=== PATIENT | female | born 1940 | race Caucasian/White ===

== ENCOUNTER 2018-04-02 21:47 | Inpatient (IN) | payer OTHER ==
[2018-04-02] MEDS ORDERED: SODIUM CHLORIDE 0.9% 500 ML INFUS.BAG IV ONE (22:38)
--- NOTE | 2018-04-02 22:38 | PDOC ---
History of Present Illness - General History Source: Family Exam Limitations: No Limitations, Clinical Condition - History of Present Illness Initial Comments: 04/02/18 23:26 The patient is a year old female, with a significant past medical history of s/ p quadruple cardiac bypass, HLD, hypothyroidism, HTN, GERD, and anxiety, who presents to the emergency department with, 5 days of lethargy, diffuse weakness , decreased PO intake and acute onset (at approximately ~8pm) slurred speech/ lack of speech. As per patients son and daughter at bedside, over the past 5 days she has not been eating and been increasingly lethargic. Daughter notes calling Dr. Celestino Green who prescribed her a Z-pack (compliant), without relief. Daughter notes today when she visited her the patient was speaking to her and her speech began to become slurred then progressed her not speaking and just sleeping, prompting them to call for EMS. Allergies: NKDA Primary Care Physician: Dr. Gilma Green <Liat Garcia - Last Filed: 04/02/18 23:26> <Nellie Ndiaye - Last Filed: 04/03/18 19:57> - General Chief Complaint: Altered Mental Status Stated Complaint: Altered Mental Status Time Seen by Provider: 04/02/18 22:12 Past History <Liat Garcia - Last Filed: 04/02/18 23:26> - Past Medical History GI Disorders: Yes (GERD) HTN: Yes Hypercholesterolemia: Yes Psychiatric Problems: Yes (ANXIETY) Thyroid Disease: Yes (HYPO) - Suicide/Smoking/Psychosocial Hx Smoking History: Never smoked Have you smoked in the past 12 months: No Number of Cigarettes Smoked Daily: 10 Information on smoking cessation initiated: No Hx Alcohol Use: No Drug/Substance Use Hx: No Hx Substance Use Treatment: No <Nellie Ndiaye - Last Filed: 04/03/18 19:57> - Past Medical History Allergies/Adverse Reactions: Allergies Allergy/AdvReac Type Severity Reaction Status Date / Time No Known Allergies Allergy Verified 04/02/18 21:59 Home Medications: Ambulatory Orders Atorvastatin Ca [Lipitor] 20 mg PO HS 04/02/18 Diazepam [Valium] 5 mg PO DAILY 04/02/18 Esomeprazole Magnesium 40 mg PO DAILY 04/02/18 Fenofibrate Nanocrystallized [Fenofibrate] 145 mg PO DAILY 04/02/18 Ipratropium [place] [Atrovent Hfa] 17 mcg IH 04/02/18 Levothyroxine [Synthroid -] 25 mcg PO DAILY 04/02/18 Meloxicam 7.5 mg PO 04/02/18 Metoprolol Succinate [Toprol Xl] 25 mg PO DAILY 04/02/18 Olmesartan/Hydrochlorothiazide [Olmesartan-Hctz 20-12.5 mg Tab] 1 each PO Prochlorperazine Maleate [Compazine -] 5 mg PO 04/02/18 Sertraline HCl [Zoloft -] 50 mg PO DAILY 04/02/18 Zolpidem Tartrate [Ambien] 10 mg PO HS 04/02/18 Review of Systems - Review of Systems Able to Perform ROS?: No Comments:: 04/02/18 23:26 Unable to perform a ROS due to patient's clinical condition. All Other Systems: Reviewed and Negative <Liat Garcia - Last Filed: 04/02/18 23:26> *Physical Exam - Vital Signs Last Vital Signs Temp Pulse Resp BP Pulse Ox 89 18 128/86 97 04/02/18 21:59 04/02/18 21:59 04/02/18 21:59 04/02/18 21:59 <Liat Garcia - Last Filed: 04/02/18 23:26> - Vital Signs Last Vital Signs Temp Pulse Resp BP Pulse Ox 89 18 128/86 97 04/02/18 21:59 04/02/18 21:59 04/02/18 21:59 04/02/18 21:59 <Nellie Ndiaye - Last Filed: 04/03/18 19:57> Moderate Sedation - Procedure Monitoring Vital Signs: Procedure Monitoring Vital Signs Temperature Pulse Rate 89 04/02/18 21:59 Respiratory Rate 18 04/02/18 21:59 Blood Pressure 128/86 04/02/18 21:59 O2 Sat by Pulse Oximetry (%) 97 04/02/18 21:59 <Liat Garcia - Last Filed: 04/02/18 23:26> - Procedure Monitoring Vital Signs: Procedure Monitoring Vital Signs Temperature Pulse Rate 89 04/02/18 21:59 Respiratory Rate 18 04/02/18 21:59 Blood Pressure 128/86 04/02/18 21:59 O2 Sat by Pulse Oximetry (%) 97 04/02/18 21:59 <Nellie Ndiaye - Last Filed: 04/03/18 19:57> ED Treatment Course - LABORATORY CBC & Chemistry Diagram: 04/02/18 10:40 04/02/18 10:40 - ADDITIONAL ORDERS Additional order review: Laboratory Results 04/02/18 04/02/18 10:40 10:40 PT with INR 17.90 H INR 1.51 H Lipase Cancelled 04/02/18 10:40 RBC 2.61 L MCV 87.1 MCHC 32.4 RDW 16.2 H MPV 7.6 D Neutrophils % 92.7 H D Lymphocytes % 2.6 L D Monocytes % 4.2 Eosinophils % 0.1 Basophils % 0.4 - Medications Given in the ED: ED Medications Discontinued Medications Generic Name Dose Route Start Last Admin Trade Name Freq PRN Reason Stop Dose Admin Sodium Chloride 1,000 ml 04/02/18 22:38 04/02/18 22:49 Normal Saline - IV 04/02/18 22:39 1,000 ml ONCE ONE Administration <Liat Garcia - Last Filed: 04/02/18 23:26> - LABORATORY CBC & Chemistry Diagram: 04/03/18 16:05 04/03/18 16:05 - RADIOLOGY Radiology Studies Ordered: Category Date Time Status HEAD CT WITHOUT CONTRAST [CT] Stat CT Scan 04/02/18 22:10 Ordered CHEST X-RAY PORTABLE* [RAD] Stat Radiology 04/02/18 22:12 Ordered <Nellie Ndiaye - Last Filed: 04/03/18 19:57> Medical Decision Making - Medical Decision Making 04/02/18 23:19 Pt has a UTI; also she is anemic; HB is 7.4; normal is 11 for her. Pt also has distended abd. WBC is 17 with a 92% left shift. Once chem is back we can order a CT abd.pelvis, as pt has distended abd. Need to know if it is safe to use IV contrast. 04/03/18 00:36 Chem is still pending 04/03/18 01:2 Chem is hemolyzed; however we sent 2 tubes of Chem 04/03/18 01:42 CXR shows cardiomegaly; she had open heart surg; wires in place 04/03/18 02:41 Pt has kidney failure; we are repeating her CMP; pt will prob be admitted to the ICU. 04/03/18 02:44 Patient Name: ZOIE GUTIERREZ THIS IS A PRELIMINARY REPORT FROM [facility] DATE OF SERVICE: 2018-04-03 02:17:51 IMAGES: [id number] EXAM: HEAD CT WITHOUT CONTRAST HISTORY: Altered mental status COMPARISON: None. FINDINGS: Brain parenchyma is normal in attenuation with no mass or hematoma. There is no midline shift. Elliott and white matter differentiation is normal. Ventricles are normal. Sulci and extra-axial CSF spaces are normal. Intracranial vascular structures are normal in attenuation. There is no calvarial fracture. Paranasal sinuses are normally aerated. IMPRESSION: Normal head 04/03/18 04:56 Patient Name: ZOIE GUTIERREZ THIS IS A PRELIMINARY REPORT FROM [facility] DATE OF SERVICE: 2018-04-03 04:06:37 IMAGES: [id number] EXAM: CT ABDOMEN \T\ PELVIS CT W/O CONTR HISTORY: Concern for colitis or obstruction COMPARISON: None. FINDINGS: Abdomen Liver: Normal Spleen: Normal Pancreas: Normal Gallbladder: There is cholelithiasis Stomach: Normal Small bowel: Normal Large bowel: There is a segment of thickened inflamed appearing sigmoid colon with some colonic wall pneumatosis. There is extraluminal gas in the adjacent fat Appendix: Normal Adrenals:Normal Kidneys: Normal Vascular: Normal Lymphatic: Normal Peritoneal: There is a complex loculated air and fluid collection in the cul-de- sac measuring 10.7 x 11.1 x 7.9 cm. This appears to communicate directly to the area of thickened sigmoid colon with pneumatosis and extraluminal gas. There is a second loculated mesenteric fluid collection measuring 3.9 x 5.6 x 4.1 cm Pelvis: Uterus: normal Rectum: Normal Bladder: There is a Clinton catheter in the bladder The inferior thorax: Normal General: Skeletal: Normal Abdominal wall: Normal IMPRESSION: Complex air-fluid collection in the cul-de-sac with a second loculated fluid collection in the small bowel mesenteric fat appears to reflect abscess formations likely related to a focal perforation in the sigmoid colon Cholelithiasis THIS DOCUMENT HAS BEEN ELECTRONICALLY SIGNED 04/03/18 19:55 Dr. Siva Bustamante for surg; Kandi for GI; Conor for kidneys.... I placed the request in the computer. Accepted by the ICU. <Nellie Ndiaye - Last Filed: 04/03/18 19:57> *DC/Admit/Observation/Transfer - Attestations Scribe Attestion: 04/02/18 23:27 Documentation prepared by Liat Garcia, acting as center medical director for Nellie Ndiaye MD. <Liat Garcia - Last Filed: 04/02/18 23:26> - Discharge Dispostion Decision to Admit order: Yes <Nellie Ndiaye - Last Filed: 04/03/18 19:57> Diagnosis at time of Disposition: UTI (urinary tract infection), Anemia, Altered mental state, Dehydration, Abdominal distension, Acute kidney failure - Discharge Dispostion Condition at time of disposition: Critical
[2018-04-02 22:51] LABS: BASO % 0.4 % (0-2.0); EOS % 0.1 % (0-4.5); HEMATOCRIT 22.7 % (32.4-45.2); HEMOGLOBIN 7.4 GM/dL (10.7-15.3); LYMPH % 2.6 % (8-40); MCH 28.2 pg (25.7-33.7); MCHC 32.4 g/dl (32.0-36.0); MEAN CELL VOLUME 87.1 fl (80-96); MEAN PLT VOLUME 7.6 fl (7.5-11.1); MONO % 4.2 % (3.8-10.2); NEUT % 92.7 % (42.8-82.8); PLATELET COUNT 540 K/MM3 (134-434); RBC 2.61 M/mm3 (3.60-5.2); RDW 16.2 % (11.6-15.6); WHITE BLOOD COUNT 17.5 K/mm3 (4.0-10.0)
[2018-04-02 23:05] LABS: INR 1.51 (0.83-1.09); PROTHROMBIN TIME (PATIENT) 17.9 SEC (9.7-13.0)
[2018-04-02] MEDS ORDERED: CEFTRIAXONE 1 GM in DEXTROSE 5%-WATER - 50 ML IVPB ONE (23:17)
[2018-04-02] MEDS ORDERED: CEFTRIAXONE 1 GM/50 ML BAG ONE (23:20)
[2018-04-02 23:39] LABS: PLATELET ESTIMATE INCREASED
[2018-04-02 23:42] LABS: URINE APPEARANCE SLCLOUDY; URINE BILIRUBIN NEGATIVE (<2.0 mg/dL); URINE COLOR DKYELLOW; URINE GLUCOSE (UA) NEGATIVE (NEGATIVE); URINE KETONE NEGATIVE (NEGATIVE); URINE LEUK ESTERASE NEGATIVE (NEGATIVE); URINE NITRITE NEGATIVE (NEGATIVE); URINE PROTEIN 1+ (NEGATIVE)
[2018-04-03] MEDS ORDERED: SODIUM CHLORIDE 0.9% 500 ML INFUS.BAG IV ONE (01:08)
[2018-04-03 01:37] LABS: CHLORIDE 112 mmol/L (98-107); GLUCOSE,RANDOM 105 mg/dL (74-106); SODIUM 139 mmol/L (136-145)
[2018-04-03 01:38] LABS: ALBUMIN 1.9 g/dl (3.4-5.0); ANION GAP 20 MMOL/L (8-16); BILIRUBIN,TOTAL 0.8 mg/dL (0.2-1); CO2 7 mmol/L (21-32); LIPASE 87 U/L (73-393); SGOT/AST 72 U/L (15-37); TOT PROT 7.4 g/dl (6.4-8.2)
[2018-04-03 01:39] LABS: ALK PHOS 87 U/L (45-117); BLOOD UREA NITROGEN 167 mg/dL (7-18); SGPT/ALT 49 U/L (13-61)
[2018-04-03 01:40] LABS: CALCIUM 6.1 mg/dL (8.5-10.1); POTASSIUM 5.7 mmol/L (3.5-5.1)
[2018-04-03 01:41] LABS: CREATININE 5.7 mg/dL (0.55-1.3)
[2018-04-03 02:41] LABS: ALBUMIN 1.8 g/dl (3.4-5.0); ALK PHOS 81 U/L (45-117); ANION GAP 17 MMOL/L (8-16); BILIRUBIN,TOTAL 0.7 mg/dL (0.2-1); CHLORIDE 114 mmol/L (98-107); CO2 9 mmol/L (21-32); CREATININE 5.5 mg/dL (0.55-1.3); GLUCOSE,RANDOM 93 mg/dL (74-106); POTASSIUM 5.4 mmol/L (3.5-5.1); SGOT/AST 63 U/L (15-37); SGPT/ALT 47 U/L (13-61); SODIUM 140 mmol/L (136-145)
[2018-04-03 02:42] LABS: BLOOD UREA NITROGEN 162 mg/dL (7-18); CALCIUM 5.8 mg/dL (8.5-10.1)
--- NOTE | 2018-04-03 05:35 | CONSULT ---
Consultation: ICU REQUESTING PROVIDER: Dr Ndiaye CONSULT REQUEST: We have been asked to medically evaluate this patient for ( urgent HD ). HISTORY OF PRESENT ILLNESS: The patient is a 77 year old female, with a significant past medical history of s/p quadruple cardiac bypass, HLD, hypothyroidism, HTN, GERD, and anxiety, who presents to the emergency department with, 5 days of lethargy, diffuse weakness , decreased PO intake and acute onset (at approximately ~8pm) slurred speech/ lack of speech. As per patients son and daughter at bedside, over the past 5 days she has not been eating and been increasingly lethargic. Daughter notes calling Dr. Celestino Green who prescribed her a Z-pack (compliant), without relief. Daughter notes today when she visited her the patient was speaking to her and her speech began to become slurred then progressed her not speaking and just sleeping, prompting them to call for EMS. Allergies: NKDA Primary Care Physician: Dr. Gilma Green PMHx: Quardiple Bipass, HTN , HLD, copd PSHx: BIPASS FHx: non contributory Allergies : NKDA Soccial hx: 1PPD for 40 years , denies alcohol or drugs REVIEW OF SYSTEMS: CONSTITUTIONAL: Absent: fever, chills, diaphoresis, generalized weakness, malaise, loss of appetite, weight change HEENT: Absent: rhinorrhea, nasal congestion, throat pain, throat swelling, difficulty swallowing, mouth swelling, ear pain, eye pain, visual changes CARDIOVASCULAR: Absent: chest pain, syncope, palpitations, irregular heart rate, lightheadedness , peripheral edema RESPIRATORY: Absent: cough, shortness of breath, dyspnea with exertion, orthopnea, wheezing, stridor, hemoptysis GASTROINTESTINAL: Absent: abdominal pain, abdominal distension, nausea, vomiting, diarrhea, constipation, melena, hematochezia GENITOURINARY: Absent: dysuria, frequency, urgency, hesitancy, hematuria, flank pain, genital pain MUSCULOSKELETAL: Absent: myalgia, arthralgia, joint swelling, back pain, neck pain SKIN: Absent: rash, itching, pallor HEMATOLOGIC/IMMUNOLOGIC: Absent: easy bleeding, easy bruising, lymphadenopathy, frequent infections ENDOCRINE: Absent: unexplained weight gain, unexplained weight loss, heat intolerance, cold intolerance NEUROLOGIC: Absent: headache, focal weakness or paresthesias, dizziness, unsteady gait, seizure, mental status changes, bladder or bowel incontinence PSYCHIATRIC: Absent: anxiety, depression, suicidal or homicidal ideation, hallucinations. PHYSICAL EXAMINATION Vital Signs - 24 hr 04/02/18 04/02/18 04/03/18 21:59 23:46 01:02 Temperature Pulse Rate 89 Pulse Rate [ 96 H 89 Apical] Respiratory 18 20 18 Rate Blood Pressure 128/86 Blood Pressure 113/42 L [Right Arm] O2 Sat by Pulse 97 96 95 Oximetry (%) 04/03/18 05:05 Temperature 98.3 F Pulse Rate Pulse Rate [ 102 H Apical] Respiratory 20 Rate Blood Pressure Blood Pressure 132/64 [Right Arm] O2 Sat by Pulse 96 Oximetry (%) GENERAL: AA but lethargic and weak to answer question HEAD: Normal with no signs of trauma. EYES: Pupils equal, round and reactive to light, extraocular movements intact, ENT dry mucous membranes. NECK:supple LUNGS: decreased breath sound at bases HEART: Regular rate and rhythm, normal S1 and S2 ABDOMEN: Soft, LLQ tenderness , not distended, normoactive bowel sounds, no guarding, no rebound MUSCULOSKELETAL: Normal range of motion at all joints. No bony deformities or tenderness. No CVA tenderness. UPPER EXTREMITIES: 2+ pulses, warm, well-perfused. No cyanosis. No clubbing. Cap refill <2 seconds. No peripheral edema. LOWER EXTREMITIES: 2+ pulses, warm, well-perfused. No peripheral edema. NEUROLOGICAL: Cranial nerves II-XII intact. Normal speech. Normal gait. PSYCHIATRIC: Good eye contact. SKIN: Warm, dry, normal turgor, Laboratory Results - last 24 hr 04/02/18 04/02/18 04/02/18 10:40 10:40 10:40 WBC 17.5 H RBC 2.61 L Hgb 7.4 L Hct 22.7 L D MCV 87.1 MCH 28.2 MCHC 32.4 RDW 16.2 H Plt Count 540 H D MPV 7.6 D Absolute Neuts (auto) 16.2 H Neutrophils % 92.7 H D Neutrophils % (Manual) 80.0 Band Neutrophils % 12.0 Lymphocytes % 2.6 L D Lymphocytes % (Manual) 5.0 L Monocytes % 4.2 Monocytes % (Manual) 3 L Eosinophils % 0.1 Eosinophils % (Manual) 0.0 Basophils % 0.4 Basophils % (Manual) 0.0 Nucleated RBC % 0 Platelet Estimate Increased PT with INR INR Sodium 139 Potassium 5.7 H Chloride 112 H Carbon Dioxide 7 L Anion Gap 20 H BUN 167 H* Creatinine 5.7 H Creat Clearance w eGFR 7.25 Random Glucose 105 Lactic Acid Calcium 6.1 L* Total Bilirubin 0.8 AST 72 H ALT 49 Alkaline Phosphatase 87 B-Natriuretic Peptide Total Protein 7.4 Albumin 1.9 L Lipase 87 Urine Color Urine Appearance Urine pH Ur Specific [place] Urine Protein Urine Glucose (UA) Urine Ketones Urine Blood Urine Nitrite Urine Bilirubin Urine Urobilinogen Ur Leukocyte Esterase Urine WBC (Auto) Urine RBC (Auto) Blood Type A NEGATIVE Antibody Screen Negative 04/02/18 04/02/18 04/02/18 10:40 10:40 10:40 WBC RBC Hgb Hct MCV MCH MCHC RDW Plt Count MPV Absolute Neuts (auto) Neutrophils % Neutrophils % (Manual) Band Neutrophils % Lymphocytes % Lymphocytes % (Manual) Monocytes % Monocytes % (Manual) Eosinophils % Eosinophils % (Manual) Basophils % Basophils % (Manual) Nucleated RBC % Platelet Estimate PT with INR 17.90 H INR 1.51 H Sodium Potassium Chloride Carbon Dioxide Anion Gap BUN Creatinine Creat Clearance w eGFR Random Glucose Lactic Acid Calcium Total Bilirubin AST ALT Alkaline Phosphatase B-Natriuretic Peptide 4932 H Total Protein Albumin Lipase Cancelled Urine Color Urine Appearance Urine pH Ur Specific [place] Urine Protein Urine Glucose (UA) Urine Ketones Urine Blood Urine Nitrite Urine Bilirubin Urine Urobilinogen Ur Leukocyte Esterase Urine WBC (Auto) Urine RBC (Auto) Blood Type Antibody Screen 04/02/18 04/02/18 04/03/18 10:40 23:05 01:54 WBC RBC Hgb Hct MCV MCH MCHC RDW Plt Count MPV Absolute Neuts (auto) Neutrophils % Neutrophils % (Manual) Band Neutrophils % Lymphocytes % Lymphocytes % (Manual) Monocytes % Monocytes % (Manual) Eosinophils % Eosinophils % (Manual) Basophils % Basophils % (Manual) Nucleated RBC % Platelet Estimate PT with INR INR Sodium 140 Potassium 5.4 H Chloride 114 H Carbon Dioxide 9 L Anion Gap 17 H BUN 162 H* Creatinine 5.5 H Creat Clearance w eGFR 7.56 Random Glucose 93 Lactic Acid 0.4 Calcium 5.8 L* Total Bilirubin 0.7 AST 63 H ALT 47 Alkaline Phosphatase 81 B-Natriuretic Peptide Total Protein 7.0 Albumin 1.8 L Lipase Urine Color Dkyellow Urine Appearance Slcloudy Urine pH 5.0 Ur Specific [place] 1.014 Urine Protein 1+ H Urine Glucose (UA) Negative Urine Ketones Negative Urine Blood 2+ H Urine Nitrite Negative Urine Bilirubin Negative Urine Urobilinogen 2.0 H Ur Leukocyte Esterase Negative Urine WBC (Auto) 4 Urine RBC (Auto) 61 Blood Type Antibody Screen Active Medications Generic Name Dose Route Start Last Admin Trade Name Osmanq PRN Reason Stop Dose Admin Metronidazole 500 mg in 100 mls @ 100 mls/hr 04/03/18 05:15 04/03/18 05:12 Flagyl 500mg Premixed Ivpb - IVPB 04/04/18 05:14 100 mls/hr Q8H-IV MARY JANE Administration CBC, BMP 04/02/18 10:40 04/03/18 01:54 ASSESSMENT/PLAN: 77 year old female with pmhx of Bipass , HTN, HLD presented with one week history of diffuse abdominal pain and decrease appetite and generalized weakness. 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 * I &O , daily weight * surgery consult Dr Anaya * UA , CBC, cmp , Mg, P * sanford cx , cxr * Abx Ceftriaxone and Flagyl * Abdomen/pelvic CT with sigmoid wall thickening and abscess 10x9x8 cm pending official reading (fluid air collection) and cholilithiasis * Head CT pending reading * resume home meds * Hold BP if develop hypotensive # FEN * NS @ 50CC/hr , received 1.5 L NS in ED * Monitor lytes * NPO except water # Proph * DVTS: SCDS , HEp SQ TID * GI: pepcid # Dispo * monitor in ICU Dispo: We will continue to follow the patient. Thank you for this consultative opportunity. Visit type - Emergency Visit Emergency Visit: Yes ED Registration Date: 04/03/18 Care time: The patient presented to the Emergency Department on the above date and was hospitalized for further evaluation of their emergent condition. - New Patient This patient is new to me today: Yes Date on this admission: 04/03/18 - Critical Care Critical Care patient: Yes Total Critical Care Time (in minutes): 45 Critical Care Statement: The care of this patient involved high complexity decision making to prevent further life threatening deterioration of the patient 's condition and/or to evaluate & treat vital organ system(s) failure or risk of failure.
[2018-04-03] MEDS ORDERED: ACETAMINOPHEN 1000 MG/100 ML VIAL (NON FORMULARY) IVPB PRN (06:25)
[2018-04-03] MEDS ORDERED: SODIUM CHLORIDE 1,000 ML IV SCH (06:30)
[2018-04-03] MEDS ORDERED: ALBUTEROL SO4 0.083% IH SOL 2.5 MG/3 ML VIAL.NEB. NEB PRN (06:38)
[2018-04-03] MEDS ORDERED: ALBUTEROL SO4 2.5/IPRATROPIUM 0.5 INH SOL 3 ML VIAL.NEB. NEB PRN (06:38)
[2018-04-03] MEDS ORDERED: CALCIUM GLUCONATE 10% - 1,000 MG/10 ML VIAL IVPUSH ONE (07:01)
[2018-04-03] MEDS ORDERED: SODIUM POLYSTYRENE SULFONATE 15 GM/60 ML BOTTLE PO ONE (07:14)
[2018-04-03 07:17] LABS: ARTERIAL BLD GAS O2 SATURATION 95.9 % (90-98.9); ARTERIAL BLOOD GAS BASE EXCESS -21.2 meq/l (-2-2)
[2018-04-03 07:19] LABS: ALLENS TEST POSITIVE; ARTERIAL BLOOD GAS pH 7.11 (7.35-7.45)
[2018-04-03 07:20] LABS: ARTERIAL BLOOD GAS PCO2 21.7 mmHg (35-45)
[2018-04-03] MEDS ORDERED: LEVOTHYROXINE NA 25 MCG TABLET (FP) PO SCH (07:30)
[2018-04-03] MEDS ORDERED: PT OWN MED DRAWER 7, Y5N ONE (08:02)
[2018-04-03] MEDS ORDERED: CALCIUM GLUCONATE 10% - 1,000 MG/10 ML VIAL IVPB ONE (08:30)
[2018-04-03] MEDS: metoPROLOL SUCCINATE 25 MG TAB.SR.24H (FP) PO SCH (09:20)
[2018-04-03] MEDS: SERTRALINE HCL 50 MG TABLET (FP) PO SCH (09:20)
--- NOTE | 2018-04-03 09:31 | PN ---
Teaching Attending Note Name of Resident: Hernan Marquez ATTENDING PHYSICIAN STATEMENT I saw and evaluated the patient. I reviewed the resident's note and discussed the case with the resident. I agree with the resident's findings and plan as documented. SUBJECTIVE: Patient seen and examined in the ICU. Lethargic but arousable. Not able to answer questions of follow commands. Seen by surgery, suspected perforated bowel. Severe metabolic acidosis, but is making urine. Intake & Output 03/31/18 04/01/18 04/02/18 04/03/18 23:59 23:59 23:59 23:59 Output Total 1600 Balance -1600 Weight 185 lb Last Vital Signs Temp Pulse Resp BP Pulse Ox 97.4 F L 107 H 18 128/51 L 96 04/03/18 06:02 04/03/18 06:02 04/03/18 06:48 04/03/18 06:02 04/03/18 06:48 Active Medications Acetaminophen (Ofirmev Injection -) 1,000 mg IVPB Q8H PRN PRN Reason: PAIN LEVEL 6-10 Albuterol Sulfate (Ventolin 0.083% Nebulizer Soln -) 1 amp NEB Q6H PRN PRN Reason: SHORT OF BREATH/WHEEZING Albuterol/Ipratropium (Duoneb -) 1 amp NEB Q4H PRN PRN Reason: SHORTNESS OF BREATH Metronidazole (Flagyl 500mg Premixed Ivpb -) 500 mg in 100 mls @ 100 mls/hr IVPB Q8H-IV MARY JANE Stop: 04/04/18 05:14 Last Admin: 04/03/18 09:16 Dose: 100 mls/hr Sodium Chloride (Normal Saline -) 1,000 mls @ 50 mls/hr IV ASDIR [facility] Stop: 04/04/18 06:25 Last Admin: 04/03/18 07:03 Dose: 50 mls/hr Levothyroxine Sodium (Synthroid -) 25 mcg PO DAILY@0700 [facility] Metoprolol Succinate (Toprol Xl -) 25 mg PO DAILY [facility] Last Admin: 04/03/18 09:20 Dose: Not Given Sertraline HCl (Zoloft -) 50 mg PO DAILY [facility] Last Admin: 04/03/18 09:20 Dose: Not Given GENERAL: Lethargic, unable to answer questions HEAD: Normal with no signs of trauma. EYES: Pupils equal, round and reactive to light, extraocular movements intact, ENT dry mucous membranes. NECK:supple LUNGS: decreased breath sound at bases HEART: Regular rate and rhythm, normal S1 and S2 ABDOMEN: Soft, RLQ tenderness , not distended, normoactive bowel sounds, no guarding, no rebound MUSCULOSKELETAL: Normal range of motion at all joints. No bony deformities or tenderness. No CVA tenderness. UPPER EXTREMITIES: 2+ pulses, warm, well-perfused. No cyanosis. No clubbing. Cap refill <2 seconds. No peripheral edema. LOWER EXTREMITIES: 2+ pulses, warm, well-perfused. No peripheral edema. NEUROLOGICAL: Confused, non-focal SKIN: Warm, dry, normal turgor Laboratory Results - last 24 hr 04/02/18 04/02/18 04/02/18 10:40 10:40 10:40 WBC 17.5 H RBC 2.61 L Hgb 7.4 L Hct 22.7 L D MCV 87.1 MCH 28.2 MCHC 32.4 RDW 16.2 H Plt Count 540 H D MPV 7.6 D Absolute Neuts (auto) 16.2 H Neutrophils % 92.7 H D Neutrophils % (Manual) 80.0 Band Neutrophils % 12.0 Lymphocytes % 2.6 L D Lymphocytes % (Manual) 5.0 L Monocytes % 4.2 Monocytes % (Manual) 3 L Eosinophils % 0.1 Eosinophils % (Manual) 0.0 Basophils % 0.4 Basophils % (Manual) 0.0 Nucleated RBC % 0 Platelet Estimate Increased PT with INR INR Puncture Site ABG pH ABG pCO2 at Pt Temp ABG pO2 at Pt Temp ABG HCO3 ABG O2 Sat (Measured) ABG O2 Content ABG Base Excess Sam Test O2 Delivery Device Oxygen Flow Rate PEEP Sodium 139 Potassium 5.7 H Chloride 112 H Carbon Dioxide 7 L Anion Gap 20 H BUN 167 H* Creatinine 5.7 H Creat Clearance w eGFR 7.25 Random Glucose 105 Lactic Acid Calcium 6.1 L* Total Bilirubin 0.8 AST 72 H ALT 49 Alkaline Phosphatase 87 B-Natriuretic Peptide Total Protein 7.4 Albumin 1.9 L Lipase 87 Urine Color Urine Appearance Urine pH Ur Specific [place] Urine Protein Urine Glucose (UA) Urine Ketones Urine Blood Urine Nitrite Urine Bilirubin Urine Urobilinogen Ur Leukocyte Esterase Urine WBC (Auto) Urine RBC (Auto) Blood Type A NEGATIVE Antibody Screen Negative 04/02/18 04/02/18 04/02/18 10:40 10:40 10:40 WBC RBC Hgb Hct MCV MCH MCHC RDW Plt Count MPV Absolute Neuts (auto) Neutrophils % Neutrophils % (Manual) Band Neutrophils % Lymphocytes % Lymphocytes % (Manual) Monocytes % Monocytes % (Manual) Eosinophils % Eosinophils % (Manual) Basophils % Basophils % (Manual) Nucleated RBC % Platelet Estimate PT with INR 17.90 H INR 1.51 H Puncture Site ABG pH ABG pCO2 at Pt Temp ABG pO2 at Pt Temp ABG HCO3 ABG O2 Sat (Measured) ABG O2 Content ABG Base Excess Sam Test O2 Delivery Device Oxygen Flow Rate PEEP Sodium Potassium Chloride Carbon Dioxide Anion Gap BUN Creatinine Creat Clearance w eGFR Random Glucose Lactic Acid Calcium Total Bilirubin AST ALT Alkaline Phosphatase B-Natriuretic Peptide 4932 H Total Protein Albumin Lipase Cancelled Urine Color Urine Appearance Urine pH Ur Specific [place] Urine Protein Urine Glucose (UA) Urine Ketones Urine Blood Urine Nitrite Urine Bilirubin Urine Urobilinogen Ur Leukocyte Esterase Urine WBC (Auto) Urine RBC (Auto) Blood Type Antibody Screen 04/02/18 04/02/18 04/03/18 10:40 23:05 01:54 WBC RBC Hgb Hct MCV MCH MCHC RDW Plt Count MPV Absolute Neuts (auto) Neutrophils % Neutrophils % (Manual) Band Neutrophils % Lymphocytes % Lymphocytes % (Manual) Monocytes % Monocytes % (Manual) Eosinophils % Eosinophils % (Manual) Basophils % Basophils % (Manual) Nucleated RBC % Platelet Estimate PT with INR INR Puncture Site ABG pH ABG pCO2 at Pt Temp ABG pO2 at Pt Temp ABG HCO3 ABG O2 Sat (Measured) ABG O2 Content ABG Base Excess Sam Test O2 Delivery Device Oxygen Flow Rate PEEP Sodium 140 Potassium 5.4 H Chloride 114 H Carbon Dioxide 9 L Anion Gap 17 H BUN 162 H* Creatinine 5.5 H Creat Clearance w eGFR 7.56 Random Glucose 93 Lactic Acid 0.4 Calcium 5.8 L* Total Bilirubin 0.7 AST 63 H ALT 47 Alkaline Phosphatase 81 B-Natriuretic Peptide Total Protein 7.0 Albumin 1.8 L Lipase Urine Color Dkyellow Urine Appearance Slcloudy Urine pH 5.0 Ur Specific [place] 1.014 Urine Protein 1+ H Urine Glucose (UA) Negative Urine Ketones Negative Urine Blood 2+ H Urine Nitrite Negative Urine Bilirubin Negative Urine Urobilinogen 2.0 H Ur Leukocyte Esterase Negative Urine WBC (Auto) 4 Urine RBC (Auto) 61 Blood Type Antibody Screen 04/03/18 07:10 WBC RBC Hgb Hct MCV MCH MCHC RDW Plt Count MPV Absolute Neuts (auto) Neutrophils % Neutrophils % (Manual) Band Neutrophils % Lymphocytes % Lymphocytes % (Manual) Monocytes % Monocytes % (Manual) Eosinophils % Eosinophils % (Manual) Basophils % Basophils % (Manual) Nucleated RBC % Platelet Estimate PT with INR INR Puncture Site Left radial ABG pH 7.11 L* ABG pCO2 at Pt Temp 21.7 L ABG pO2 at Pt Temp 122.0 H ABG HCO3 6.6 L* ABG O2 Sat (Measured) 95.9 ABG O2 Content 9.3 L* ABG Base Excess -21.2 L* Sam Test Positive O2 Delivery Device Nasal Oxygen Flow Rate 2l PEEP 0.0 Sodium Potassium Chloride Carbon Dioxide Anion Gap BUN Creatinine Creat Clearance w eGFR Random Glucose Lactic Acid Calcium Total Bilirubin AST ALT Alkaline Phosphatase B-Natriuretic Peptide Total Protein Albumin Lipase Urine Color Urine Appearance Urine pH Ur Specific [place] Urine Protein Urine Glucose (UA) Urine Ketones Urine Blood Urine Nitrite Urine Bilirubin Urine Urobilinogen Ur Leukocyte Esterase Urine WBC (Auto) Urine RBC (Auto) Blood Type Antibody Screen ASSESSMENT/PLAN: Perforated Viscus R/O Peritonitis Sepsis ARF Obesity Hyperkalemia HTN HPL CABG Will need access Aggressive IVF Resuscitation ID evaluation for ABX coverage Strict I & O Renal evaluation NPO Will be going for emergent OR ICU Monitoring Dr iKm Critical care time spent in reviewing chart, evaluating patient and formulating plan - 36 minutes.
--- NOTE | 2018-04-03 09:32 | PN ---
Progress Note (short form) - Note Progress Note: ID consult dictated imp/reccd 77 yo female admitted from home with one week of abdominal pain, poor appetite- she has remained in bed for the last week she was given a zpak by her pmd yesterday she was noted to have slurred speech and brought to the ED she was found to be in acute renal failure and on ct scan she has two intraabdominal collections she is currently on nasal canulla arousable awaiting OR this am imp/reccd intraabdominal sepsis- ?diverticular abscesses Acute renal failure metabolic acidosis anemia For OR this am zosyn/flagyl adjusted for her renal failure critical care/renal evaluation Problem List - Problems (1) Intra-abdominal abscess Code(s): K65.1 - PERITONEAL ABSCESS (2) Acute kidney failure Code(s): N17.9 - ACUTE KIDNEY FAILURE, UNSPECIFIED
[2018-04-03] MEDS ORDERED: morphine SULFATE 4 MG/ML VIAL ONE (09:57)
[2018-04-03] MEDS ORDERED: MIDAZOLAM HCL 2 MG/2 ML SINGLE DOSE VIAL ONE ×3 (10:03→14:54)
[2018-04-03] MEDS ORDERED: PIPERACILLIN/TAZOBACTAM 2.25 GM VIAL IVPB ONE ×2 (10:23→21:44)
[2018-04-03] MEDS ORDERED: DEXTROSE 5%-WATER - 50 ML IVPB ONE ×2 (10:24→21:45)
[2018-04-03] MEDS: PIPERACILLIN/TAZOB 2.25 GM 2.25 GM in DEXTROSE 5%-WATER - 50 ML IVPB SCH ×3 (10:35→21:45)
--- NOTE | 2018-04-03 10:36 | CONS ---
DATE OF CONSULTATION: 04/03/2018 HISTORY OF PRESENT ILLNESS: The history was obtained from the chart and from her daughter who was at the bedside. This is a 77-year-old woman who about a 1 week back started having some abdominal pain. Per her daughter, she did not want to go see the doctor. They spoke to the doctor and she was prescribed Z-Howard. She continued to feel very weak and lethargic. She did not get out of bed. She had very poor oral intake at home. Yesterday, they noticed that her speech became slurred and she was more lethargic and they brought her to the emergency room. She has not been eating. They have no idea if she has been urinating at all. In the ER, she was noted to be in acute renal failure with metabolic acidosis. She had a CAT scan of her abdomen and pelvis done that was notable with intraabdominal abscess. Of note, the daughter states the patient has refused colonoscopy in the past and has never had this procedure. PAST MEDICAL HISTORY: Her past medical history is notable for hypertension, hyperlipidemia, COPD, coronary artery disease. PAST SURGICAL HISTORY: Surgical history is notable for quadruple cardiac bypass. She has a history of hypothyroidism and GERD was well, anxiety. SOCIAL HISTORY: She smokes 1 pack per day. She lives with her son. ALLERGIES: She has no known drug allergies. FAMILY HISTORY: Noncontributory. MEDICATIONS: Her medications at home include omeprazole, Fenofibrate, metoprolol, levothyroxine, Atorvastatin, Ambien, Zoloft, Valium, Compazine, losartan, hydrochlorothiazide, meloxicam and Atrovent. REVIEW OF SYSTEMS: Not obtainable from the patient. Per the family she has not been out of bed all week and she is not eating. PHYSICAL EXAMINATION: General: On physical exam she has remained lethargic. She is unable to follow any commands or give any history. Vitals: Her temperature was 97.4; pulse was 107, blood pressure 128/51, respirations 18. She is saturating 96%. HEENT: She is normocephalic. Eyes are anicteric. Neck: Her neck is supple. Lungs: Have diminished breath sounds at the bases. Heart: The heart is tachycardic. Abdomen: Soft. She has a few bowel sounds. She has lower quadrant discomfort bilaterally on deep palpation. Extremities: Without edema. [place] is in place draining dark urine. LABORATORY DATA: White count is 17.5, hemoglobin 7.4, platelet count 540. INR is 1.5. Her BUN is 162 and creatinine 5.5. Her lactic acid was 0.4. Sodium of 140, potassium of 5.4. Albumin is 1.8. Urinalysis has 4 white cells. Urine and blood cultures are pending. CAT scan findings are notable for a complex loculated air fluid collection in the cul-de-sac and there is a 2nd mesenteric fluid collection as well. Head CT is unremarkable, normal and chest x-ray is without infiltrate. ASSESSMENT: 1. In summary, this is a 77-year-old female with intraabdominal sepsis, possibly diverticular abscess cannot rule out malignancy. 2. Acute renal failure. 3. Metabolic acidosis and anemia. She is scheduled for emergent OR this morning. She received ceftriaxone and Flagyl last night. I would switch her to Zosyn and Flagyl adjusted for her renal failure. She is pending critical care and renal evaluation. RONIT WING M.D. [id number]
[2018-04-03] MEDS ORDERED: ROCURONIUM BROMIDE 50 MG/5 ML VIAL ONE ×4 (10:57→14:53)
[2018-04-03] MEDS ORDERED: ETOMIDATE 20 MG/10 ML AMPUL IVPUSH ONE (10:58)
[2018-04-03] MEDS ORDERED: LIDOCAINE HCL/PF 2% SDV 5ML VIAL ONE (10:58)
--- NOTE | 2018-04-03 11:31 | PROC ---
Central Line Insertion Indication: CVP Monitoring, Sepsis Risks and Benefits Explained: Yes Consent on Chart: Yes Central Line: Triple Lumen Catheter Anesthesia: 1% Lidocaine Sterile Technique: Yes Ultrasound Guided Assistance: Yes Position: Right Internal Jugular Post Insertion: Yes: Bilateral Breath Sounds, Bilateral Chest Expansion, Chest X-Ray Ordered Sterile Dressing Applied: Yes
--- NOTE | 2018-04-03 11:32 | PROC ---
Central Line Insertion Indication: Sepsis, Other (dialysis) Risks and Benefits Explained: Yes Consent on Chart: Yes Central Line: Dialysis Cath, Tri Lumen Anesthesia: 1% Lidocaine Sterile Technique: Yes Ultrasound Guided Assistance: Yes Position: Right Femoral Sterile Dressing Applied: Yes
[2018-04-03] MEDS ORDERED: MORPHINE SULFATE 2 MG/ML VIAL IVPUSH ONE (11:40)
[2018-04-03] MEDS ORDERED: MIDAZOLAM HCL 2 MG/2 ML SINGLE DOSE VIAL IVPUSH ONE (11:40)
[2018-04-03] MEDS ORDERED: SODIUM CHLORIDE 1,000 ML IV STA (11:41)
[2018-04-03] MEDS ORDERED: SODIUM CHLORIDE 0.9% P/F 10 ML VIAL IJ ONE (12:03)
[2018-04-03] MEDS ORDERED: NOREPINEPHRINE BITARTRATE 4 MG/4 ML ML IV ONE ×3 (12:04→18:22)
[2018-04-03] MEDS ORDERED: BUPIVACAINE HCL/PF 0.5% (5MG/ML) 10 ML VIAL ONE (12:11)
--- NOTE | 2018-04-03 12:19 | PN ---
Physical Exam: SUBJECTIVE: Patient seen and examined at bedside. Patient is in moderate pain. Not answering questioning appropriately. Denies CP, GRAY, SOB, nausea or vomiting. OBJECTIVE: Vital Signs Period Temp Pulse Resp BP Sys/Andrews Pulse Ox Last 24 Hr 97.4 F-98.3 F 89-107 18-20 113-132/42-86 95-98 GENERAL: awake but lethargic in moderate distress. HEAD:NCAT EYES: PERRL, EOMI, sclera anicteric, conjunctiva clear. No ptosis. ENT: moist mucous membranes. NECK: supple, No JVD LUNGS: CTAB, no wheezes, no crackles, no accessory muscle use. HEART: Tachycardic, S1, S2 without murmur, rub or gallop. ABDOMEN: Soft, moderate generalized lower quadrant tenderness, NABS EXTREMITIES: 2+ pulses, warm, well-perfused, no edema. NEUROLOGICAL: Cranial nerves II through XII grossly intact. Normal speech, gait not observed. PSYCH: Normal mood, normal affect. SKIN: left side inguinal erythema Laboratory Results - last 24 hr 04/02/18 04/02/18 04/02/18 10:40 10:40 10:40 WBC 17.5 H RBC 2.61 L Hgb 7.4 L Hct 22.7 L D MCV 87.1 MCH 28.2 MCHC 32.4 RDW 16.2 H Plt Count 540 H D MPV 7.6 D Absolute Neuts (auto) 16.2 H Neutrophils % 92.7 H D Neutrophils % (Manual) 80.0 Band Neutrophils % 12.0 Lymphocytes % 2.6 L D Lymphocytes % (Manual) 5.0 L Monocytes % 4.2 Monocytes % (Manual) 3 L Eosinophils % 0.1 Eosinophils % (Manual) 0.0 Basophils % 0.4 Basophils % (Manual) 0.0 Nucleated RBC % 0 Platelet Estimate Increased PT with INR INR Puncture Site ABG pH ABG pCO2 at Pt Temp ABG pO2 at Pt Temp ABG HCO3 ABG O2 Sat (Measured) ABG O2 Content ABG Base Excess Sam Test O2 Delivery Device Oxygen Flow Rate PEEP Sodium 139 Potassium 5.7 H Chloride 112 H Carbon Dioxide 7 L Anion Gap 20 H BUN 167 H* Creatinine 5.7 H Creat Clearance w eGFR 7.25 Random Glucose 105 Lactic Acid Calcium 6.1 L* Total Bilirubin 0.8 AST 72 H ALT 49 Alkaline Phosphatase 87 B-Natriuretic Peptide Total Protein 7.4 Albumin 1.9 L Lipase 87 Urine Color Urine Appearance Urine pH Ur Specific [place] Urine Protein Urine Glucose (UA) Urine Ketones Urine Blood Urine Nitrite Urine Bilirubin Urine Urobilinogen Ur Leukocyte Esterase Urine WBC (Auto) Urine RBC (Auto) Blood Type A NEGATIVE Antibody Screen Negative 04/02/18 04/02/18 04/02/18 10:40 10:40 10:40 WBC RBC Hgb Hct MCV MCH MCHC RDW Plt Count MPV Absolute Neuts (auto) Neutrophils % Neutrophils % (Manual) Band Neutrophils % Lymphocytes % Lymphocytes % (Manual) Monocytes % Monocytes % (Manual) Eosinophils % Eosinophils % (Manual) Basophils % Basophils % (Manual) Nucleated RBC % Platelet Estimate PT with INR 17.90 H INR 1.51 H Puncture Site ABG pH ABG pCO2 at Pt Temp ABG pO2 at Pt Temp ABG HCO3 ABG O2 Sat (Measured) ABG O2 Content ABG Base Excess Sam Test O2 Delivery Device Oxygen Flow Rate PEEP Sodium Potassium Chloride Carbon Dioxide Anion Gap BUN Creatinine Creat Clearance w eGFR Random Glucose Lactic Acid Calcium Total Bilirubin AST ALT Alkaline Phosphatase B-Natriuretic Peptide 4932 H Total Protein Albumin Lipase Cancelled Urine Color Urine Appearance Urine pH Ur Specific [place] Urine Protein Urine Glucose (UA) Urine Ketones Urine Blood Urine Nitrite Urine Bilirubin Urine Urobilinogen Ur Leukocyte Esterase Urine WBC (Auto) Urine RBC (Auto) Blood Type Antibody Screen 04/02/18 04/02/18 04/03/18 10:40 23:05 01:54 WBC RBC Hgb Hct MCV MCH MCHC RDW Plt Count MPV Absolute Neuts (auto) Neutrophils % Neutrophils % (Manual) Band Neutrophils % Lymphocytes % Lymphocytes % (Manual) Monocytes % Monocytes % (Manual) Eosinophils % Eosinophils % (Manual) Basophils % Basophils % (Manual) Nucleated RBC % Platelet Estimate PT with INR INR Puncture Site ABG pH ABG pCO2 at Pt Temp ABG pO2 at Pt Temp ABG HCO3 ABG O2 Sat (Measured) ABG O2 Content ABG Base Excess Sam Test O2 Delivery Device Oxygen Flow Rate PEEP Sodium 140 Potassium 5.4 H Chloride 114 H Carbon Dioxide 9 L Anion Gap 17 H BUN 162 H* Creatinine 5.5 H Creat Clearance w eGFR 7.56 Random Glucose 93 Lactic Acid 0.4 Calcium 5.8 L* Total Bilirubin 0.7 AST 63 H ALT 47 Alkaline Phosphatase 81 B-Natriuretic Peptide Total Protein 7.0 Albumin 1.8 L Lipase Urine Color Dkyellow Urine Appearance Slcloudy Urine pH 5.0 Ur Specific [place] 1.014 Urine Protein 1+ H Urine Glucose (UA) Negative Urine Ketones Negative Urine Blood 2+ H Urine Nitrite Negative Urine Bilirubin Negative Urine Urobilinogen 2.0 H Ur Leukocyte Esterase Negative Urine WBC (Auto) 4 Urine RBC (Auto) 61 Blood Type Antibody Screen 04/03/18 07:10 WBC RBC Hgb Hct MCV MCH MCHC RDW Plt Count MPV Absolute Neuts (auto) Neutrophils % Neutrophils % (Manual) Band Neutrophils % Lymphocytes % Lymphocytes % (Manual) Monocytes % Monocytes % (Manual) Eosinophils % Eosinophils % (Manual) Basophils % Basophils % (Manual) Nucleated RBC % Platelet Estimate PT with INR INR Puncture Site Left radial ABG pH 7.11 L* ABG pCO2 at Pt Temp 21.7 L ABG pO2 at Pt Temp 122.0 H ABG HCO3 6.6 L* ABG O2 Sat (Measured) 95.9 ABG O2 Content 9.3 L* ABG Base Excess -21.2 L* Sam Test Positive O2 Delivery Device Nasal Oxygen Flow Rate 2l PEEP 0.0 Sodium Potassium Chloride Carbon Dioxide Anion Gap BUN Creatinine Creat Clearance w eGFR Random Glucose Lactic Acid Calcium Total Bilirubin AST ALT Alkaline Phosphatase B-Natriuretic Peptide Total Protein Albumin Lipase Urine Color Urine Appearance Urine pH Ur Specific [place] Urine Protein Urine Glucose (UA) Urine Ketones Urine Blood Urine Nitrite Urine Bilirubin Urine Urobilinogen Ur Leukocyte Esterase Urine WBC (Auto) Urine RBC (Auto) Blood Type Antibody Screen Active Medications Generic Name Dose Route Start Last Admin Trade Name Aby PRN Reason Stop Dose Admin Acetaminophen 1,000 mg 04/03/18 06:25 Ofirmev Injection - IVPB Q8H PRN PAIN LEVEL 6-10 Albuterol Sulfate 1 amp 04/03/18 06:38 Ventolin 0.083% Nebulizer Soln - NEB Q6H PRN SHORT OF BREATH/WHEEZING Albuterol/Ipratropium 1 amp 04/03/18 06:38 Duoneb - NEB Q4H PRN SHORTNESS OF BREATH Metronidazole 500 mg in 100 mls @ 100 mls/hr 04/03/18 05:15 04/03/18 09:16 Flagyl 500mg Premixed Ivpb - IVPB 04/04/18 05:14 100 mls/hr Q8H-IV MARY JANE Administration Sodium Chloride 1,000 mls @ 50 mls/hr 04/03/18 06:30 04/03/18 07:03 Normal Saline - IV 04/04/18 06:25 50 mls/hr ASDIR MARY JANE Administration Piperacillin Sod/Tazobactam 50 mls @ 100 mls/hr 04/03/18 10:00 04/03/18 10:35 Sod 2.25 gm/ Dextrose IVPB 100 mls/hr Q6H-IV MARY JANE Administration Protocol Sodium Chloride 1,000 mls @ 1,000 mls/hr 04/03/18 11:41 Normal Saline - IV 04/03/18 12:40 ASDIR STA Levothyroxine Sodium 25 mcg 04/03/18 07:30 Synthroid - PO DAILY@0700 MARY JANE Metoprolol Succinate 25 mg 04/03/18 10:00 04/03/18 09:20 Toprol Xl - PO Not Given DAILY MARY JANE Midazolam HCl 2 mg 04/03/18 11:40 Versed - IVPUSH 04/03/18 11:41 ONCE ONE Morphine Sulfate 2 mg 04/03/18 11:40 Morphine Sulfate IVPUSH 04/03/18 11:41 ONCE ONE Sertraline HCl 50 mg 04/03/18 10:00 04/03/18 09:20 Zoloft - PO Not Given DAILY MARY JANE ASSESSMENT/PLAN: 77 year old female with pmhx of [place] , HTN, HLD presented with one week history of diffuse abdominal pain and decrease appetite and generalized weakness admitted to ICU for severe acidosis secondary to perforated bowel. NEURO: * Awake but lethargic. * No sedation at this time. * Will continue to monitor. * Pain control with Morphine 2mg Q4H. PULM: * No active issues * supplemental O2 PRN * maintain SpO2 >90% CV: * Will obtain central access * BP WNL will continue to monitor * maintain MAP>65 * strict I/O * CVP measurements to maintain 8-12 * BP meds on hold for now. will restart PRN ENDO: * hypothyroidism- will continue Levothyroxine at home dose. GI: * Possible bowel perforation seen on CT imaging. * surgery will take back to OR for emergent surgery * NPO for now. ID: * ID consult appreciated. * renally dosed Zosyn and Flagyl RENAL: * MARKIE showing severe metabolic acidosis * Nephrology consulted for possible dialysis * Dialysis catheter insertion. * continues to make adequate urine. FEN: * NS 1L bolus x2 * Potassium elevated will treat and recheck. * NPO for surgery. DISPO: Will continue to monitor in ICU. CODE status: full code. Problem List - Problems (1) Perforated bowel (2) Increased anion gap metabolic acidosis (3) Acute kidney failure (4) Altered mental state (5) Intra-abdominal abscess (6) HTN (hypertension) (7) Hypothyroidism Visit type - Emergency Visit Emergency Visit: Yes ED Registration Date: 04/03/18 Care time: The patient presented to the Emergency Department on the above date and was hospitalized for further evaluation of their emergent condition. - New Patient This patient is new to me today: Yes Date on this admission: 04/03/18 - Critical Care Critical Care patient: Yes Total Critical Care Time (in minutes): 45 Critical Care Statement: The care of this patient involved high complexity decision making to prevent further life threatening deterioration of the patient 's condition and/or to evaluate & treat vital organ system(s) failure or risk of failure.
[2018-04-03] MEDS ORDERED: SODIUM BICARBONATE 8.4% - 100 ML ONE ×4 (12:40→14:24)
[2018-04-03] MEDS ORDERED: HYDROCORTISONE SOD SUCCINATE ONE (14:30)
--- NOTE | 2018-04-03 15:11 | OP ---
Operative Note - Note: Operative Date: 04/03/18 Pre-Operative Diagnosis: perforated diverticulitis with multiple abcesses Operation: exploratory laparotomy lysis of adhesions leigh's procedure, drainage and irrigation of multiple abcesses Findings: perforated diverticulitis with multiple abcesses interloop abcesses, perforated sigmoid colon Post-Operative Diagnosis: Same as Pre-op Surgeon: Be Parada Arc Welder Apprentice: Blayne Mcmahan Anesthesia: General Specimens Removed: rectosigmoid colon Estimated Blood Loss (mls): 150 Drains & Tubes with Location: ROGE x2 Blood Volume Replaced (mls): 2 Operative Report Dictated: Yes
--- NOTE | 2018-04-03 15:16 | PN ---
Progress Note (short form) - Note Progress Note: discussed case with Dr Marquez this morning. Patient is to undergo exploratory laparotomy this morning. Came to see the patient she was still in the OR.
[2018-04-03 15:42] LABS: VENOUS PC02 50.3 mmHg (38-52); VENOUS PH 7.27 (7.32-7.42)
--- NOTE | 2018-04-03 16:32 | HP ---
Admitting History and Physical - Admission History of Present Illness: Pt is a 77 y/o female w/ PMH significant for CAD(quadruple cardiac bypass), HLD , hypothyroidism, HTN, GERD, and anxiety/depression. Pt presented to the ER with 5 day h/o lethargy, diffuse weakness, decreased PO intake and acute onset ( at approximately ~8pm) slurred speech/lack of speech. As per patients son and daughter at bedside, over the past 5 days she has not been eating and been increasingly lethargic. Daughter notes calling Dr. Celestino Green who prescribed her a Z-pack (compliant), without relief. Daughter notes today when she visited her the patient was speaking to her and her speech began to become slurred then progressed her not speaking and just sleeping, prompting them to call for EMS. In the ER pt found to have WBC > 17,000, BUN?creatinine 167/5.7 and BNP >4000. CT scan abd/pelvis showed 2 intra-abdominal abscesses/?diverticulitis. - Past Medical History Cardiovascular: Yes: CAD, HTN, Hyperlipdemia Psych: Yes: Anxiety, Depression, Other Endocrine: Yes: Hypothyroidism - Smoking History Smoking history: Former smoker Have you smoked in the past 12 months: No Aproximately how many cigarettes per day: 20 - Alcohol/Substance Use Hx Alcohol Use: No - Social History ADL: Independent History of Recent Travel: No Home Medications - Allergies Allergies/Adverse Reactions: Allergies Allergy/AdvReac Type Severity Reaction Status Date / Time No Known Allergies Allergy Verified 04/02/18 21:59 - Home Medications Home Medications: Ambulatory Orders Atorvastatin Ca [Lipitor] 20 mg PO HS 04/02/18 Diazepam [Valium] 5 mg PO DAILY 04/02/18 Esomeprazole Magnesium 40 mg PO DAILY 04/02/18 Fenofibrate Nanocrystallized [Fenofibrate] 145 mg PO DAILY 04/02/18 Ipratropium [place] [Atrovent Hfa] 17 mcg IH 04/02/18 Levothyroxine [Synthroid -] 25 mcg PO DAILY 04/02/18 Meloxicam 7.5 mg PO 04/02/18 Metoprolol Succinate [Toprol Xl] 25 mg PO DAILY 04/02/18 Olmesartan/Hydrochlorothiazide [Olmesartan-Hctz 20-12.5 mg Tab] 1 each PO Prochlorperazine Maleate [Compazine -] 5 mg PO 04/02/18 Sertraline HCl [Zoloft -] 50 mg PO DAILY 04/02/18 Zolpidem Tartrate [Ambien] 10 mg PO HS 04/02/18 Family Disease History - Family Disease History Family History: Unremarkable Review of Systems Unable to obtain ROS, reason: Lethargy Physical Examination Vital Signs: Vital Signs Temperature 98.8 F 04/03/18 12:00 Pulse Rate 136 H 04/03/18 16:00 Respiratory Rate 16 04/03/18 16:00 Blood Pressure 106/56 L 04/03/18 16:00 O2 Sat by Pulse Oximetry (%) 98 04/03/18 09:00 Constitutional: Yes: Well Nourished HENT: Yes: WNL Neck: Yes: WNL, Supple Cardiovascular: Yes: WNL, Regular Rate and Rhythm Respiratory: Yes: WNL, Regular, CTA Bilaterally Gastrointestinal: Yes: Other ((+) tenderness on palpation) Musculoskeletal: Yes: WNL Extremities: Yes: WNL Edema: No ...Motor Strength: WNL Labs: CBC, BMP 04/02/18 10:40 04/03/18 01:54 Problem List - Problems (1) Intra-abdominal abscess Assessment/Plan: Pt to be taken to OR as per surgery At this time there is no medical contraindication for surgery Cont IV antibiotics NPO/IVF Code(s): K65.1 - PERITONEAL ABSCESS (2) Altered mental state Assessment/Plan: Due to infectious encephalopathy/sepsis Code(s): R41.82 - ALTERED MENTAL STATUS, UNSPECIFIED (3) Metabolic acidosis Assessment/Plan: Due to sepsis Renal consult Code(s): E87.2 - ACIDOSIS (4) Acute kidney failure Assessment/Plan: Cont IVF Renal consult Monitor labs Code(s): N17.9 - ACUTE KIDNEY FAILURE, UNSPECIFIED (5) HTN (hypertension) Code(s): I10 - ESSENTIAL (PRIMARY) HYPERTENSION Qualifiers: Hypertension type: essential hypertension Qualified Code(s): I10 - Essential (primary) hypertension (6) Hypothyroidism Code(s): E03.9 - HYPOTHYROIDISM, UNSPECIFIED Qualifiers: Hypothyroidism type: acquired Qualified Code(s): E03.9 - Hypothyroidism, unspecified (7) Depression with anxiety Code(s): F41.8 - OTHER SPECIFIED ANXIETY DISORDERS (8) HLD (hyperlipidemia) Code(s): E78.5 - HYPERLIPIDEMIA, UNSPECIFIED
--- NOTE | 2018-04-03 16:34 | EKG ---
Test Reason : Blood Pressure : / mmHG Vent. Rate : 100 BPM Atrial Rate : 100 BPM P-R Int : 134 ms QRS Dur : 088 ms QT Int : 386 ms P-R-T Axes : 065 051 022 degrees QTc Int : 497 ms NORMAL SINUS RHYTHM PROLONGED QT ABNORMAL ECG WHEN COMPARED WITH ECG OF 03-APR-2018 00:53, NO SIGNIFICANT CHANGE WAS FOUND Confirmed by Ammy Tello ([id number]) on 04/03/2018 4:34:07 PM Referred By: Jose WALLACE Confirmed By:Ammy Tello
--- NOTE | 2018-04-03 16:37 | EKG ---
Test Reason : Blood Pressure : / mmHG Vent. Rate : 097 BPM Atrial Rate : 097 BPM P-R Int : 138 ms QRS Dur : 086 ms QT Int : 404 ms P-R-T Axes : 063 034 007 degrees QTc Int : 513 ms NORMAL SINUS RHYTHM NONSPECIFIC T WAVE ABNORMALITY PROLONGED QT ABNORMAL ECG WHEN COMPARED WITH ECG OF 25-OCT-2013 08:25, VENT. RATE HAS INCREASED BY [address] NOW DEPRESSED IN ANTERIOR LEADS T WAVE INVERSION NOW EVIDENT IN ANTERIOR LEADS QT HAS LENGTHENED Confirmed by Ammy Tello ([id number]) on 04/03/2018 4:37:11 PM Referred By: Confirmed By:Ammy Tello
[2018-04-03 16:38] LABS: ARTERIAL BLD GAS O2 SATURATION 97.8 % (90-98.9); ARTERIAL BLOOD GAS BASE EXCESS -11.6 meq/l (-2-2); ARTERIAL BLOOD GAS PCO2 40.7 mmHg (35-45)
[2018-04-03 16:40] LABS: ALLENS TEST POSITIVE
[2018-04-03] MEDS ORDERED: METOPROLOL TARTRATE 5 MG/5 ML VIAL IVPUSH PRN ×2 (16:40→16:47)
[2018-04-03] MEDS ORDERED: METOPROLOL TARTRATE 5 MG/5 ML VIAL ONE (16:41)
--- NOTE | 2018-04-03 16:55 | SURG ---
Surgery Angiographer Note Angiographer: Blayne Mcmahan PA-C Date of Service: 04/03/18 Diagnosis: perforated diverticulitis with multiple abcesses Procedure: exploratory laparotomy lysis of adhesions leigh's procedure, drainage of multiple abcesses, copious irrigation I was present for the entirety of the operative procedure. For further detail, please refer to operative report. Visit type - Case Type Case Type: ED Admission - Emergency Emergency Visit: Yes ED Registration Date: 04/03/18 Care time: The patient presented to the Emergency Department on the above date and was hospitalized for further evaluation of their emergent condition. - New patient This patient is new to me today: Yes Date on this admission: 04/03/18
[2018-04-03 16:57] LABS: BASO % 0.3 % (0-2.0); HEMOGLOBIN 7.3 GM/dL (10.7-15.3); LYMPH % 4.9 % (8-40); MCH 29.7 pg (25.7-33.7); MCHC 33.4 g/dl (32.0-36.0); MEAN CELL VOLUME 88.7 fl (80-96); MEAN PLT VOLUME 7.3 fl (7.5-11.1); NEUT % 89.8 % (42.8-82.8); PLATELET COUNT 405 K/MM3 (134-434); RBC 2.47 M/mm3 (3.60-5.2); WHITE BLOOD COUNT 4.5 K/mm3 (4.0-10.0)
[2018-04-03 17:20] LABS: ALBUMIN 1.3 g/dl (3.4-5.0); ALK PHOS 55 U/L (45-117); ANION GAP 16 MMOL/L (8-16); BILIRUBIN,TOTAL 1.7 mg/dL (0.2-1); CHLORIDE 119 mmol/L (98-107); CO2 18 mmol/L (21-32); CREATININE 4.2 mg/dL (0.55-1.3); GLUCOSE,RANDOM 86 mg/dL (74-106); POTASSIUM 4.5 mmol/L (3.5-5.1); SGOT/AST 46 U/L (15-37); SGPT/ALT 32 U/L (13-61); SODIUM 153 mmol/L (136-145); TOT PROT 5.1 g/dl (6.4-8.2)
[2018-04-03 17:29] LABS: BLOOD UREA NITROGEN 154 mg/dL (7-18)
[2018-04-03 17:30] LABS: CALCIUM 6.8 mg/dL (8.5-10.1)
--- NOTE | 2018-04-03 17:58 | CON.NEP ---
Consult Consult Specialty:: nephrology Referred by:: dr bee Reason for Consultation:: renal failure - History of Present Illness Chief Complaint: abdominal pain and sepsis History of Present Illness: patient admitted with possible sepsis after being ill x 1 week with abd pain, lethargy and not improving - History Source History Provided By: Medical Record Limitations to Obtaining History: Intubated - Past Medical History Cardio/Vascular: Yes: HTN, Hyperlipdemia Psych: Yes: Other (unknown psychiatric illness) Endocrine: Yes: Hypothyroidism - Alcohol/Substance Use Hx Alcohol Use: No - Smoking History Smoking history: Former smoker Have you smoked in the past 12 months: No Aproximately how many cigarettes per day: 20 - Social History Usual Living Arrangement: Alone ADL: Independent History of Recent Travel: No Home Medications - Allergies Allergies/Adverse Reactions: Allergies Allergy/AdvReac Type Severity Reaction Status Date / Time No Known Allergies Allergy Verified 04/02/18 21:59 - Home Medications Home Medications: Ambulatory Orders Atorvastatin Ca [Lipitor] 20 mg PO HS 04/02/18 Diazepam [Valium] 5 mg PO DAILY 04/02/18 Esomeprazole Magnesium 40 mg PO DAILY 04/02/18 Fenofibrate Nanocrystallized [Fenofibrate] 145 mg PO DAILY 04/02/18 Ipratropium [place] [Atrovent Hfa] 17 mcg IH 04/02/18 Levothyroxine [Synthroid -] 25 mcg PO DAILY 04/02/18 Meloxicam 7.5 mg PO 04/02/18 Metoprolol Succinate [Toprol Xl] 25 mg PO DAILY 04/02/18 Olmesartan/Hydrochlorothiazide [Olmesartan-Hctz 20-12.5 mg Tab] 1 each PO Prochlorperazine Maleate [Compazine -] 5 mg PO 04/02/18 Sertraline HCl [Zoloft -] 50 mg PO DAILY 04/02/18 Zolpidem Tartrate [Ambien] 10 mg PO HS 04/02/18 Nephrology Consult - Height Height: 5 ft 4 in - Weight Weight: 185 lb - BMI Body Mass Index (BMI): 31.7 - Lab Results CBC,BMP: CBC, BMP 04/03/18 16:05 04/03/18 16:05 Anion Gap: Anion Gap Anion Gap 16 MMOL/L (8-16) 02/02/19 16:05 - Physical Examination Vital Signs: Vital Signs Temperature 98.4 F 04/03/18 16:45 Pulse Rate 136 H 04/03/18 16:45 Respiratory Rate 15 04/03/18 16:45 Blood Pressure 100/49 L 04/03/18 16:45 O2 Sat by Pulse Oximetry (%) 98 04/03/18 16:45 Assessment/Plan leonor -nonoliguric metabolic acidosis Sepsis post op exploratory lap Ischemic bowel/acute abdomen s/p resection/colostomy severe anemia (partly blood loss) Plan- s/p bicarb replacement continue IVF on (Lactated ringers right now) follow
[2018-04-03] MEDS: LACTATED RINGERS SOLUTION 1,000 ML/1,000 ML INFUS.BAG IV SCH (18:09)
[2018-04-03] MEDS: NOREPINEPHRINE BITARTRATE 8,000 MCG in DEXTROSE 5%-WATER - 492 ML IV SCH (18:40)
[2018-04-03] MEDS: HEPARIN NA (PORCINE) 5,000 UNITS/ML 1ML VIAL SQ SCH (21:46)
[2018-04-03] MEDS ORDERED: fentaNYL CITRATE 250 MCG/5 ML VIAL ONE (22:49)
[2018-04-03] MEDS: FENTANYL INJECTION 500 MCG in DEXTROSE 5%-WATER - 90 ML IVPB SCH (22:56)
[2018-04-04] MEDS ORDERED: DEXTROSE 5%-WATER - 50 ML IVPB ONE ×3 (01:04→20:58)
[2018-04-04] MEDS ORDERED: PIPERACILLIN/TAZOBACTAM 2.25 GM VIAL IVPB ONE ×4 (01:04→20:57)
[2018-04-04] MEDS: PIPERACILLIN/TAZOB 2.25 GM 2.25 GM in DEXTROSE 5%-WATER - 50 ML IVPB SCH ×4 (02:17→21:10)
[2018-04-04] MEDS: VASOPRESSIN 50 UNITS in SODIUM CHLORIDE 97.5 ML IVPB SCH ×2 (04:13→17:31)
[2018-04-04 04:44] LABS: ARTERIAL BLOOD GAS PCO2 43.1 mmHg (35-45)
[2018-04-04 04:48] LABS: ARTERIAL BLOOD GAS BASE EXCESS -11.5 meq/l (-2-2)
[2018-04-04 04:49] LABS: ALLENS TEST POSITIVE; ARTERIAL BLOOD GAS pH 7.18 (7.35-7.45)
[2018-04-04] MEDS: HEPARIN NA (PORCINE) 5,000 UNITS/ML 1ML VIAL SQ SCH ×3 (05:17→21:12)
[2018-04-04 05:54] LABS: BASO % 0.1 % (0-2.0); HEMATOCRIT 22.7 % (32.4-45.2); HEMOGLOBIN 7.8 GM/dL (10.7-15.3); LYMPH % 2.2 % (8-40); MCH 29.3 pg (25.7-33.7); MCHC 34.2 g/dl (32.0-36.0); MEAN CELL VOLUME 85.7 fl (80-96); MEAN PLT VOLUME 7.4 fl (7.5-11.1); MONO % 6.1 % (3.8-10.2); NEUT % 91.6 % (42.8-82.8); PLATELET COUNT 430 K/MM3 (134-434); RBC 2.65 M/mm3 (3.60-5.2); RDW 15.2 % (11.6-15.6); WHITE BLOOD COUNT 19.7 K/mm3 (4.0-10.0)
[2018-04-04 06:57] LABS: ALBUMIN 1.4 g/dl (3.4-5.0); ALK PHOS 49 U/L (45-117); ANION GAP 16 MMOL/L (8-16); BILIRUBIN,TOTAL 2.2 mg/dL (0.2-1); CHLORIDE 115 mmol/L (98-107); CO2 17 mmol/L (21-32); CREATININE 4.9 mg/dL (0.55-1.3); GLUCOSE,RANDOM 205 mg/dL (74-106); POTASSIUM 4.8 mmol/L (3.5-5.1); SGOT/AST 47 U/L (15-37); SGPT/ALT 30 U/L (13-61); SODIUM 148 mmol/L (136-145); TOT PROT 5.4 g/dl (6.4-8.2)
[2018-04-04 07:06] LABS: CALCIUM 6.3 mg/dL (8.5-10.1)
[2018-04-04 07:30] LABS: PHOSPHOROUS > 9.0 mg/dL (2.5-4.9)
[2018-04-04] MEDS ORDERED: CALCIUM GLUCONATE 10% - 1,000 MG/10 ML VIAL IVPB ONE (08:25)
--- NOTE | 2018-04-04 08:41 | PN ---
Progress Note (short form) - Note Progress Note: pod #1 s/p ex lap andHartman's procedure- perforated diverticulitis, perforated sigmoid colon, multiple abscesses remains intubated Vital Signs Period Temp Pulse Resp BP Sys/Andrews Pulse Ox Last 24 Hr 98.0 F-98.8 F 88-138 12-31 78-141/34-81 98-100 cor-rrr lungs decreased bs at bases abd soft, +ostomy, +tomas drains ext no edema CBC, BMP 02//19 05:15 // 05:15 Microbiology 04/02/ 22:30 Blood - Peripheral Venous Blood Culture - Preliminary NO GROWTH OBTAINED AFTER 24 HOURS, INCUBATION TO CONTINUE FOR 4 DAYS. 04/02/ 22:25 Blood - Peripheral Venous Blood Culture - Preliminary NO GROWTH OBTAINED AFTER 24 HOURS, INCUBATION TO CONTINUE FOR 4 DAYS. imp/reccd POD #1 s/p drainage of intrabdominal aabscess- s/p ex lap and Hartmans procedure - perforated diverticulitis intubated, on pressors Acute renal failure metabolic acidosis anemia continue zosyn/flagyl f/u operative cultures case d/w surgery and ICU staff Problem List - Problems (1) Intra-abdominal abscess Code(s): K65.1 - PERITONEAL ABSCESS (2) Acute kidney failure Code(s): N17.9 - ACUTE KIDNEY FAILURE, UNSPECIFIED
--- NOTE | 2018-04-04 08:59 | PN ---
Progress Note (short form) - Note Progress Note: Anesthesiology Post-op 77 y.o. woman POD#1 s/p exploratory laparotomy with Anthony's procedure under GA. She remains intubated and is maintained on pressors currently. She has been stable since the procedure with no ON issues. Continue management as per ICU, wean ventilator as tolerated. Daily sedation holidays.
[2018-04-04 09:03] LABS: BLOOD UREA NITROGEN 151 mg/dL (7-18)
[2018-04-04] MEDS: NOREPINEPHRINE BITARTRATE 8,000 MCG in DEXTROSE 5%-WATER - 492 ML IV SCH ×2 (09:20→19:03)
[2018-04-04] MEDS: LEVOTHYROXINE SODIUM 100 MCG VIAL IVPUSH SCH (09:27)
[2018-04-04] MEDS: SERTRALINE HCL 50 MG TABLET (FP) PO SCH ×2 (09:29→09:58)
[2018-04-04] MEDS: metoPROLOL SUCCINATE 25 MG TAB.SR.24H (FP) PO SCH (09:29)
[2018-04-04] MEDS ORDERED: METOPROLOL TARTRATE 5 MG/5 ML VIAL ONE (09:41)
[2018-04-04] MEDS: NYSTATIN POWDER 100,000 UNITS/GM - 15 GM TOPICAL POWDER TP SCH (09:54)
--- NOTE | 2018-04-04 09:54 | PN ---
Teaching Attending Note Name of Resident: Berahne Cavazos ATTENDING PHYSICIAN STATEMENT I saw and evaluated the patient. I reviewed the resident's note and discussed the case with the resident. I agree with the resident's findings and plan as documented. SUBJECTIVE: Patient seen and examined in the ICU. Intubated and sedated. NE @ 6mcq and Vasopressin @ 2 units. POD #1: exploratory laparotomy lysis of adhesions leigh's procedure, drainage and irrigation of multiple abcesses due to perforated diverticulitis with multiple abcesses interloop abcesses, perforated sigmoid colon Intake & Output 04/01/18 04/02/18 04/03/18 04/04/18 23:59 23:59 23:59 23:59 Intake Total 7667 1508 Output Total 3350 330 Balance 4317 1178 Weight 185 lb 185 lb 195 lb 6.4 oz Last Vital Signs Temp Pulse Resp BP Pulse Ox 98.6 F 84 18 101/55 L 98 04/04/18 09:00 04/04/18 09:00 04/04/18 09:00 04/04/18 09:00 04/03/18 23:00 Active Medications Acetaminophen (Ofirmev Injection -) 1,000 mg IVPB Q8H PRN PRN Reason: PAIN LEVEL 6-10 Albuterol Sulfate (Ventolin 0.083% Nebulizer Soln -) 1 amp NEB Q6H PRN PRN Reason: SHORT OF BREATH/WHEEZING Albuterol/Ipratropium (Duoneb -) 1 amp NEB Q4H PRN PRN Reason: SHORTNESS OF BREATH Heparin Sodium (Porcine) (Heparin -) 5,000 unit SQ TID MARY JANE Last Admin: 04/04/18 05:17 Dose: 5,000 unit Piperacillin Sod/Tazobactam (Sod 2.25 gm/ Dextrose) 50 mls @ 100 mls/hr IVPB Q6H-IV MARY JANE; Protocol Last Admin: 04/04/18 02:17 Dose: 100 mls/hr Lactated Ringer's (Lactated Ringers Solution) 1,000 ml in 1,000 mls @ 100 mls/ hr IV ASDIR MARY JANE Last Admin: 04/03/18 18:09 Dose: 100 mls/hr Norepinephrine Bitartrate 8, (000 mcg/ Dextrose) 500 mls @ 18.75 mls/hr IV TITR MARY JANE; Protocol Last Titration: 04/04/18 05:10 Dose: 10 mcg/min, 37.5 mls/hr Fentanyl 500 mcg/ Dextrose 100 mls @ 1 mls/hr IVPB TITR MARY JANE; Protocol Last Titration: 04/04/18 04:45 Dose: 35 mcg/hr, 7 mls/hr Vasopressin 50 units/ Sodium (Chloride) 100 mls @ 4.8 mls/hr IVPB TITR MARY JANE; Protocol Last Admin: 04/04/18 04:13 Dose: 2.4 units/hr, 4.8 mls/hr Metronidazole (Flagyl 500mg Premixed Ivpb -) 500 mg in 100 mls @ 100 mls/hr IVPB Q8H-IV MARY JANE Last Admin: 04/04/18 09:26 Dose: 100 mls/hr Levothyroxine Sodium (Synthroid Injection -) 18.75 mcg IVPUSH DAILY [facility] Last Admin: 04/04/18 09:27 Dose: 18.75 mcg Metoprolol Succinate (Toprol Xl -) 25 mg PO DAILY [facility] Last Admin: 04/04/18 09:29 Dose: Not Given Metoprolol Tartrate (Lopressor Injection -) 5 mg IVPUSH Q4H PRN PRN Reason: HYPERTENSION Nystatin (Nystop Powder -) 1 applic TP DAILY [facility] Last Admin: 04/04/18 09:54 Dose: 1 applic Sertraline HCl (Zoloft -) 50 mg PO DAILY [facility] Last Admin: 04/04/18 09:29 Dose: 50 mg GENERAL: Intubated and sedated HEAD: Normal with no signs of trauma. EYES: Pupils equal, round and reactive ENT dry mucous membranes. NECK:supple LUNGS: vented, scattered rhonchi HEART: Regular rate and rhythm, normal S1 and S2 ABDOMEN: Soft, (+) ostomy (slightly dusky), hypoactive bowel sounds MUSCULOSKELETAL: Normal range of motion at all joints. No bony deformities UPPER EXTREMITIES: 2+ pulses, warm, well-perfused. No cyanosis. No clubbing. Cap refill <2 seconds. No peripheral edema. LOWER EXTREMITIES: 2+ pulses, warm, well-perfused. No peripheral edema. NEUROLOGICAL: sedated SKIN: Warm, dry, normal turgor Laboratory Results - last 24 hr 04/02/18 04/02/18 04/02/18 10:40 10:40 10:40 WBC RBC Hgb Hct MCV MCH MCHC RDW Plt Count MPV Absolute Neuts (auto) Neutrophils % Lymphocytes % Monocytes % Eosinophils % Basophils % Nucleated RBC % Anticoagulation Therapy Puncture Site ABG pH ABG pCO2 at Pt Temp ABG pO2 at Pt Temp ABG HCO3 ABG O2 Sat (Measured) ABG O2 Content ABG Base Excess Sam Test VBG pH 7.27 L POC VBG pCO2 50.3 POC VBG pO2 26.0 L Mixed VBG HCO3 22.1 O2 Delivery Device Oxygen Flow Rate Vent Mode Vent Rate Mechanical Rate PEEP Pressure Support Vent Sodium 139 Potassium 5.7 H Chloride 112 H Carbon Dioxide 7 L Anion Gap 20 H BUN 167 H* Creatinine 5.7 H Creat Clearance w eGFR 7.25 Random Glucose 105 Calcium 6.1 L* Phosphorus Magnesium Total Bilirubin 0.8 AST 72 H ALT 49 Alkaline Phosphatase 87 Creatine Kinase 924 H Creatine Kinase Index 2.4 CK-MB (CK-2) 22.65 H Troponin I < 0.02 Total Protein 7.4 Albumin 1.9 L Lipase 87 Blood Type A NEGATIVE Antibody Screen Negative Crossmatch IS Only See Detail 04/02/18 04/03/18 04/03/18 23:54 16:05 16:05 WBC 4.5 RBC 2.47 L Hgb 7.3 L Hct 22.0 L MCV 88.7 MCH 29.7 MCHC 33.4 RDW 16.0 H Plt Count 405 D MPV 7.3 L Absolute Neuts (auto) 4.1 Neutrophils % 89.8 H Lymphocytes % 4.9 L D Monocytes % 5.0 Eosinophils % 0.0 D Basophils % 0.3 Nucleated RBC % 1 H Anticoagulation Therapy Puncture Site ABG pH ABG pCO2 at Pt Temp ABG pO2 at Pt Temp ABG HCO3 ABG O2 Sat (Measured) ABG O2 Content ABG Base Excess Sam Test VBG pH POC VBG pCO2 POC VBG pO2 Mixed VBG HCO3 O2 Delivery Device Oxygen Flow Rate Vent Mode Vent Rate Mechanical Rate PEEP Pressure Support Vent Sodium 153 H Potassium 4.5 Chloride 119 H Carbon Dioxide 18 L Anion Gap 16 BUN 154 H* Creatinine 4.2 H Creat Clearance w eGFR 10.32 Random Glucose 86 Calcium 6.8 L* Phosphorus Magnesium Total Bilirubin 1.7 H AST 46 H ALT 32 Alkaline Phosphatase 55 Creatine Kinase Creatine Kinase Index CK-MB (CK-2) Troponin I Total Protein 5.1 L Albumin 1.3 L Lipase Blood Type A NEGATIVE Antibody Screen Crossmatch IS Only 04/03/18 04/04/18 04/04/18 16:25 04:30 05:15 WBC 19.7 H RBC 2.65 L Hgb 7.8 L Hct 22.7 L MCV 85.7 MCH 29.3 MCHC 34.2 RDW 15.2 Plt Count 430 MPV 7.4 L Absolute Neuts (auto) 18.1 H Neutrophils % 91.6 H Lymphocytes % 2.2 L D Monocytes % 6.1 Eosinophils % 0.0 Basophils % 0.1 Nucleated RBC % 0 Anticoagulation Therapy No Result Required. No Result Required. Puncture Site Arterial line No Result Required. ABG pH 7.20 L* 7.18 L* ABG pCO2 at Pt Temp 40.7 D 43.1 ABG pO2 at Pt Temp 154.0 H* D 150.0 H ABG HCO3 15.2 L 15.6 L ABG O2 Sat (Measured) 97.8 98.0 ABG O2 Content 10.3 L 11.2 L ABG Base Excess -11.6 L* -11.5 L* Sam Test Positive Positive VBG pH POC VBG pCO2 POC VBG pO2 Mixed VBG HCO3 O2 Delivery Device No Result Required. Vent Oxygen Flow Rate 50% 50% Vent Mode Ac No Result Required. Vent Rate 10 10 Mechanical Rate No Result Required. No Result Required. PEEP 5.0 5.0 Pressure Support Vent No Result Required. 500 Sodium Potassium Chloride Carbon Dioxide Anion Gap BUN Creatinine Creat Clearance w eGFR Random Glucose Calcium Phosphorus Magnesium Total Bilirubin AST ALT Alkaline Phosphatase Creatine Kinase Creatine Kinase Index CK-MB (CK-2) Troponin I Total Protein Albumin Lipase Blood Type Antibody Screen Crossmatch IS Only 04/04/18 05:15 WBC RBC Hgb Hct MCV MCH MCHC RDW Plt Count MPV Absolute Neuts (auto) Neutrophils % Lymphocytes % Monocytes % Eosinophils % Basophils % Nucleated RBC % Anticoagulation Therapy Puncture Site ABG pH ABG pCO2 at Pt Temp ABG pO2 at Pt Temp ABG HCO3 ABG O2 Sat (Measured) ABG O2 Content ABG Base Excess Sam Test VBG pH POC VBG pCO2 POC VBG pO2 Mixed VBG HCO3 O2 Delivery Device Oxygen Flow Rate Vent Mode Vent Rate Mechanical Rate PEEP Pressure Support Vent Sodium 148 H Potassium 4.8 Chloride 115 H Carbon Dioxide 17 L Anion Gap 16 BUN 151 H* Creatinine 4.9 H Creat Clearance w eGFR 8.64 Random Glucose 205 H Calcium 6.3 L* Phosphorus > 9.0 H* Magnesium 2.0 Total Bilirubin 2.2 H AST 47 H ALT 30 Alkaline Phosphatase 49 Creatine Kinase Creatine Kinase Index CK-MB (CK-2) Troponin I Total Protein 5.4 L Albumin 1.4 L Lipase Blood Type Antibody Screen Crossmatch IS Only ASSESSMENT/PLAN: POD #1: exploratory laparotomy lysis of adhesions leigh's procedure, drainage and irrigation of multiple abcesses due to perforated diverticulitis with multiple abcesses interloop abcesses, perforated sigmoid colon Septic Shock Acute Respiratory Failure ARF Obesity Hyperkalemia HTN HPL CABG Follow CVP to guide IVF Resuscitation ABX coverage per ID Vent settings adjusted Strict I & O NPO VTE prophylaxis If stable/improved in AM can start SBTs ICU Monitoring Dr Kim Critical care time spent in reviewing chart, evaluating patient and formulating plan - 36 minutes.
[2018-04-04] MEDS ORDERED: ESMOLOL 2500 MG/250 ML 2,500,000 MCG/250 ML INFUS.BAG IVPB ONE (10:08)
[2018-04-04] MEDS ORDERED: SODIUM CHLORIDE 1,000 ML IV STA (10:10)
--- NOTE | 2018-04-04 10:20 | PN ---
Progress Note (short form) - Note Progress Note: Patient seen and examined at bedside started on vasopressin overnight remains on 6mcg of levophed POD#1 s/p ex-lap, adhesiolysis, drainage of abscesses, irrigation, Anthony's procedure Vital Signs Temperature 98.6 F 04/04/18 09:00 Pulse Rate 84 04/04/18 09:00 Respiratory Rate 18 04/04/18 09:00 Blood Pressure 101/55 L 04/04/18 09:00 O2 Sat by Pulse Oximetry (%) 98 04/03/18 23:00 PE: GENERAL: intubated but easily arousable EYES: PERRL ENT: Dry mucous membranes. NECK: supple LUNGS: CTAB HEART:RRR S1, S2 without murmur, rub or gallop. ABDOMEN: Soft, grimaces to palpation ROGE drainsx2 with serous output. Ostomy with serous output. Ostomy dusky appearing :[place] with dark yellow urine EXTREMITIES: Warm, no edema. 04/02/18 04/02/18 04/02/18 10:40 10:40 23:54 WBC RBC Hgb Hct MCV MCHC RDW Plt Count Neutrophils % Lymphocytes % Monocytes % Eosinophils % Basophils % Sodium 139 Potassium 5.7 H Chloride 112 H Carbon Dioxide 7 L Anion Gap 20 H BUN 167 H* Creatinine 5.7 H Blood Type A NEGATIVE A NEGATIVE Antibody Screen Negative 04/03/18 04/03/18 04/04/18 16:05 16:05 05:15 WBC 4.5 19.7 H RBC 2.47 L 2.65 L Hgb 7.3 L 7.8 L Hct 22.0 L 22.7 L MCV 88.7 85.7 MCHC 33.4 34.2 RDW 16.0 H 15.2 Plt Count 405 D 430 Neutrophils % 89.8 H 91.6 H Lymphocytes % 4.9 L D 2.2 L D Monocytes % 5.0 6.1 Eosinophils % 0.0 D 0.0 Basophils % 0.3 0.1 Sodium 153 H Potassium 4.5 Chloride 119 H Carbon Dioxide 18 L Anion Gap 16 BUN 154 H* Creatinine 4.2 H Blood Type Antibody Screen 04/04/18 05:15 WBC RBC Hgb Hct MCV MCHC RDW Plt Count Neutrophils % Lymphocytes % Monocytes % Eosinophils % Basophils % Sodium 148 H Potassium 4.8 Chloride 115 H Carbon Dioxide 17 L Anion Gap 16 BUN 151 H* Creatinine 4.9 H Blood Type Antibody Screen 04/02/18 23:05 Urine Culture - Final Urine - Urine - Catheterized NO GROWTH OBTAINED 04/02/18 22:30 Blood Culture - Preliminary Blood - Peripheral Venous NO GROWTH OBTAINED AFTER 24 HOURS, INCUBATION TO CONTINUE FOR 4 DAYS. 04/02/18 22:25 Blood Culture - Preliminary Blood - Peripheral Venous NO GROWTH OBTAINED AFTER 24 HOURS, INCUBATION TO CONTINUE FOR 4 DAYS. 04/03/18 13:05 Gram Stain - Pending Peritoneal Fluid Body Fluid Culture - Pending Anaerobic Culture - Pending 77F with multiple medical problems presents to the hospital with perforated diverticulitis now POD#1 s/p ex-lap, adhesiolysis, drainage of abscesses, irrigation, Anthony's procedure. Problem List: Septic Shock Acute Respiratory Failure MARKIE HTN HLD Hyperkalemia Normocytic Normochromic Anemia hypothyroidism Obesity CAD s/p CABG hypocalcemia hyperphosphatemia Plan: Will keep intubated today while still in septic shock continue antibiotics Zosyn/Flagyl per ID-ID consult appreciated Will set up CVP to guide resuscitation Will decrease tidal volumes and increase PEEP per ARDS protocol strict measurement I/Os NPO IVF LR @ 100ml/hr bolus PRN to keep CVP 8-12 HSQ PPI spontaneous breathing trial in AM Transfuse PRN replete calcium will need phosphate binder when able to tolerate PO f/u nephrology - creatinine worsening, may need ORDER PULLER will discuss CCTime 36 minutes
[2018-04-04 12:26] LABS: ANISOCYTOSIS 2+; MACROCYTOSIS 0; PLATELET ESTIMATE NORMAL; TARGET CELLS 2+
[2018-04-04] MEDS: PANTOPRAZOLE SODIUM 40 MG VIAL IVPUSH SCH (12:44)
--- NOTE | 2018-04-04 14:42 | PN ---
Progress Note (short form) - Note Progress Note: covering dr brower Current Medications Acetaminophen (Ofirmev Injection -) 1,000 mg IVPB Q8H PRN PRN Reason: PAIN LEVEL 6-10 Albuterol Sulfate (Ventolin 0.083% Nebulizer Soln -) 1 amp NEB Q6H PRN PRN Reason: SHORT OF BREATH/WHEEZING Albuterol/Ipratropium (Duoneb -) 1 amp NEB Q4H PRN PRN Reason: SHORTNESS OF BREATH Heparin Sodium (Porcine) (Heparin -) 5,000 unit SQ TID MARY JANE Last Admin: 04/04/18 05:17 Dose: 5,000 unit Piperacillin Sod/Tazobactam (Sod 2.25 gm/ Dextrose) 50 mls @ 100 mls/hr IVPB Q6H-IV MARY JANE; Protocol Last Admin: 04/04/18 10:23 Dose: 100 mls/hr Lactated Ringer's (Lactated Ringers Solution) 1,000 ml in 1,000 mls @ 100 mls/ hr IV ASDIR MARY JANE Last Admin: 04/03/18 18:09 Dose: 100 mls/hr Norepinephrine Bitartrate 8, (000 mcg/ Dextrose) 500 mls @ 18.75 mls/hr IV TITR MARY JANE; Protocol Last Titration: 04/04/18 05:10 Dose: 10 mcg/min, 37.5 mls/hr Fentanyl 500 mcg/ Dextrose 100 mls @ 1 mls/hr IVPB TITR MARY JANE; Protocol Last Titration: 04/04/18 04:45 Dose: 35 mcg/hr, 7 mls/hr Vasopressin 50 units/ Sodium (Chloride) 100 mls @ 4.8 mls/hr IVPB TITR MARY JANE; Protocol Last Titration: 04/04/18 10:04 Dose: 6 units/hr, 12 mls/hr Metronidazole (Flagyl 500mg Premixed Ivpb -) 500 mg in 100 mls @ 100 mls/hr IVPB Q8H-IV MARY JANE Last Admin: 04/04/18 09:26 Dose: 100 mls/hr Levothyroxine Sodium (Synthroid Injection -) 18.75 mcg IVPUSH DAILY [facility]ANE Last Admin: 04/04/18 09:27 Dose: 18.75 mcg Metoprolol Succinate (Toprol Xl -) 25 mg PO DAILY [facility] Last Admin: 04/04/18 09:29 Dose: Not Given Metoprolol Tartrate (Lopressor Injection -) 5 mg IVPUSH Q4H PRN PRN Reason: HYPERTENSION Nystatin (Nystop Powder -) 1 applic TP DAILY [facility] Last Admin: 04/04/18 09:54 Dose: 1 applic Pantoprazole Sodium (Protonix Iv) 40 mg IVPUSH DAILY [facility] Last Admin: 04/04/18 12:44 Dose: 40 mg Sertraline HCl (Zoloft -) 50 mg PO DAILY [facility] Last Admin: 04/04/18 09:58 Dose: Not Given Last Vital Signs Temp Pulse Resp BP Pulse Ox 97.9 F 76 20 127/50 L 98 04/04/18 12:00 04/04/18 13:00 04/04/18 13:09 04/04/18 13:00 04/04/18 13:09 Intake & Output 04/03/18 04/04/18 04/04/18 23:59 07:59 15:59 Intake Total 552 1508 Output Total 260 330 900 Balance 292 1178 -900 Weight 185 lb 195 lb 6.4 oz 195 lb intubated on vent sedated and on pressors CBC, BMP 04/04/18 05:15 04/04/18 05:15 IMP- Hypernatremia improving renal function not yet improving may need hemodialysis but no indication so far metabolic acidosis hyperphosphatemia severe anemia Plan-
[2018-04-04] MEDS ORDERED: fentaNYL CITRATE 250 MCG/5 ML VIAL ONE ×2 (15:15→23:47)
[2018-04-04] MEDS: FENTANYL INJECTION 500 MCG in DEXTROSE 5%-WATER - 90 ML IVPB SCH (15:22)
[2018-04-04] MEDS: LACTATED RINGERS SOLUTION 1,000 ML/1,000 ML INFUS.BAG IV SCH ×2 (17:05→21:13)
[2018-04-04] MEDS ORDERED: ACETAMINOPHEN 1000 MG/100 ML VIAL (NON FORMULARY) IVPB PRN (18:57)
[2018-04-04] MEDS ORDERED: ALBUTEROL SO4 2.5/IPRATROPIUM 0.5 INH SOL 3 ML VIAL.NEB. NEB PRN (18:57)
[2018-04-04] MEDS ORDERED: ALBUTEROL SO4 0.083% IH SOL 2.5 MG/3 ML VIAL.NEB. NEB PRN (18:57)
[2018-04-04] MEDS ORDERED: PT OWN MED DRAWER 7, Y5N ONE (20:57)
[2018-04-04] MEDS: MUPIROCIN 2% TOPICAL OINTMENT FOR DECOLONIZATION NS SCH (21:11)
[2018-04-04] MEDS: CHLORHEXIDINE GLUCONATE 4% CLEANSER FOR DECOLONIZATION TP SCH (21:12)
--- NOTE | 2018-04-04 23:32 | PN ---
Progress Note, Physician History of Present Illness: Pt remains intubated - Current Medication List Current Medications: Active Medications Acetaminophen (Ofirmev Injection -) 1,000 mg IVPB Q8H PRN PRN Reason: PAIN LEVEL 6-10 Albuterol Sulfate (Ventolin 0.083% Nebulizer Soln -) 1 amp NEB Q6H PRN PRN Reason: SHORT OF BREATH/WHEEZING Albuterol/Ipratropium (Duoneb -) 1 amp NEB Q4H PRN PRN Reason: SHORTNESS OF BREATH Chlorhexidine Gluconate (Hibiclens For Decolonization -) 1 applic TP HS MARY JANE Last Admin: 04/04/18 21:12 Dose: 1 applic Heparin Sodium (Porcine) (Heparin -) 5,000 unit SQ TID MARY JANE Last Admin: 04/04/18 21:12 Dose: 5,000 unit Lactated Ringer's (Lactated Ringers Solution) 1,000 ml in 1,000 mls @ 100 mls/ hr IV ASDIR MARY JANE Last Admin: 04/04/18 21:13 Dose: 100 mls/hr Norepinephrine Bitartrate 8, (000 mcg/ Dextrose) 500 mls @ 18.75 mls/hr IV TITR MARY JANE; Protocol Last Admin: 04/04/18 19:03 Dose: Not Given Fentanyl 500 mcg/ Dextrose 100 mls @ 1 mls/hr IVPB TITR MARY JANE; Protocol Last Admin: 04/04/18 15:22 Dose: 25 mcg/hr, 5 mls/hr Vasopressin 50 units/ Sodium (Chloride) 100 mls @ 4.8 mls/hr IVPB TITR MARY JANE; Protocol Last Admin: 04/04/18 17:31 Dose: 4 units/hr, 8 mls/hr Metronidazole (Flagyl 500mg Premixed Ivpb -) 500 mg in 100 mls @ 100 mls/hr IVPB Q8H-IV [facility]ANE Last Admin: 04/04/18 17:13 Dose: 100 mls/hr Piperacillin Sod/Tazobactam (Sod 2.25 gm/ Dextrose) 50 mls @ 100 mls/hr IVPB Q6H-IV MARY JANE; Protocol Last Admin: 04/04/18 21:10 Dose: 100 mls/hr Levothyroxine Sodium (Synthroid Injection -) 18.75 mcg IVPUSH DAILY MARY JANE Last Admin: 04/04/18 09:27 Dose: 18.75 mcg Metoprolol Succinate (Toprol Xl -) 25 mg PO DAILY [facility] Metoprolol Tartrate (Lopressor Injection -) 5 mg IVPUSH Q4H PRN PRN Reason: HYPERTENSION Mupirocin (Bactroban Ointment (For Decolonization) -) 1 applic NS BID [facility] Stop: 04/09/18 21:59 Last Admin: 04/04/18 21:11 Dose: 1 applic Nystatin (Nystop Powder -) 1 applic TP DAILY [facility] Last Admin: 04/04/18 09:54 Dose: 1 applic Pantoprazole Sodium (Protonix Iv) 40 mg IVPUSH DAILY [facility] Last Admin: 04/04/18 12:44 Dose: 40 mg - Objective Vital Signs: Vital Signs Temperature 98.8 F 04/04/18 22:00 Pulse Rate 75 04/04/18 22:00 Respiratory Rate 18 04/04/18 22:00 Blood Pressure 115/54 L 04/04/18 22:00 O2 Sat by Pulse Oximetry (%) 100 04/04/18 22:00 Constitutional: Yes: Well Nourished Cardiovascular: Yes: WNL, Regular Rate and Rhythm Respiratory: Yes: WNL, Regular, CTA Bilaterally Gastrointestinal: Yes: Other ((+) colostomy (+) ROGE drains x 2 w/ serous drainage ) Extremities: Yes: WNL Edema: No Labs: CBC, BMP 04/04/18 05:15 04/04/18 05:15 INR, PTT INR 1.51 (0.83-1.09) H 04/02/18 10:40 Problem List - Problems (1) Intra-abdominal abscess Assessment/Plan: S/P exp lap/lysis of adhesions/drainage of abscesses/Anthony's procedure/ colostomy Cont IVF/NPO Cont IV zosyn/flagyl Code(s): K65.1 - PERITONEAL ABSCESS (2) Acute respiratory failure Assessment/Plan: Remains intubated Possible weaning trials in am However pt remains on pressors Code(s): J96.00 - ACUTE RESPIRATORY FAILURE, UNSP W HYPOXIA OR HYPERCAPNIA (3) Septic shock Assessment/Plan: Cont IV zosyn/flagyl Cont pressors Remains intubated Wound culture(+) for nonlactose fermenting Gnb BC remain negative Code(s): A41.9 - SEPSIS, UNSPECIFIED ORGANISM; R65.21 - SEVERE SEPSIS WITH SEPTIC SHOCK (4) Acute kidney failure Assessment/Plan: Cont IVF Renal consult Monitor labs Code(s): N17.9 - ACUTE KIDNEY FAILURE, UNSPECIFIED (5) Altered mental state Assessment/Plan: Due to infectious encephalopathy/sepsis Code(s): R41.82 - ALTERED MENTAL STATUS, UNSPECIFIED (6) Anemia Assessment/Plan: Monitor H/H May need blood transfusion in am Code(s): D64.9 - ANEMIA, UNSPECIFIED (7) Depression with anxiety Code(s): F41.8 - OTHER SPECIFIED ANXIETY DISORDERS (8) HLD (hyperlipidemia) Code(s): E78.5 - HYPERLIPIDEMIA, UNSPECIFIED (9) HTN (hypertension) Code(s): I10 - ESSENTIAL (PRIMARY) HYPERTENSION Qualifiers: Hypertension type: essential hypertension Qualified Code(s): I10 - Essential (primary) hypertension (10) Hypothyroidism Assessment/Plan: Cont IV levothyroxine Code(s): E03.9 - HYPOTHYROIDISM, UNSPECIFIED Qualifiers: Hypothyroidism type: acquired Qualified Code(s): E03.9 - Hypothyroidism, unspecified
[2018-04-05] MEDS ORDERED: PIPERACILLIN/TAZOBACTAM 2.25 GM VIAL IVPB ONE ×4 (01:38→20:50)
[2018-04-05] MEDS ORDERED: DEXTROSE 5%-WATER - 50 ML IVPB ONE ×4 (01:38→20:50)
[2018-04-05] MEDS: FENTANYL INJECTION 500 MCG in DEXTROSE 5%-WATER - 90 ML IVPB SCH ×2 (01:43→03:32)
[2018-04-05] MEDS: PIPERACILLIN/TAZOB 2.25 GM 2.25 GM in DEXTROSE 5%-WATER - 50 ML IVPB SCH ×4 (02:04→20:58)
[2018-04-05] MEDS: HEPARIN NA (PORCINE) 5,000 UNITS/ML 1ML VIAL SQ SCH ×3 (06:10→20:59)
[2018-04-05] MEDS: VASOPRESSIN 50 UNITS in SODIUM CHLORIDE 97.5 ML IVPB SCH ×2 (06:15→08:31)
[2018-04-05 06:47] LABS: BASO % 0.2 % (0-2.0); HEMATOCRIT 17.3 % (32.4-45.2); LYMPH % 5.6 % (8-40); MCH 29.7 pg (25.7-33.7); MCHC 34.5 g/dl (32.0-36.0); MEAN CELL VOLUME 86.2 fl (80-96); MEAN PLT VOLUME 7.2 fl (7.5-11.1); MONO % 6.1 % (3.8-10.2); NEUT % 88.1 % (42.8-82.8); PLATELET COUNT 349 K/MM3 (134-434); RDW 15.5 % (11.6-15.6); WHITE BLOOD COUNT 16.4 K/mm3 (4.0-10.0)
[2018-04-05 06:52] LABS: ARTERIAL BLD GAS O2 SATURATION 98.1 % (90-98.9); ARTERIAL BLOOD GAS BASE EXCESS -7.2 meq/l (-2-2); ARTERIAL BLOOD GAS PCO2 41.1 mmHg (35-45); ARTERIAL BLOOD GAS pH 7.27 (7.35-7.45)
[2018-04-05 07:01] LABS: ALBUMIN 1.2 g/dl (3.4-5.0); ALK PHOS 36 U/L (45-117); ANION GAP 9 MMOL/L (8-16); CHLORIDE 122 mmol/L (98-107); CO2 22 mmol/L (21-32); CREATININE 3.7 mg/dL (0.55-1.3); GLUCOSE,RANDOM 114 mg/dL (74-106); MAGNESIUM 2.1 mg/dL (1.8-2.4); POTASSIUM 3.8 mmol/L (3.5-5.1); SGOT/AST 37 U/L (15-37); SGPT/ALT 26 U/L (13-61); SODIUM 153 mmol/L (136-145)
[2018-04-05 07:03] LABS: BLOOD UREA NITROGEN 125 mg/dL (7-18)
[2018-04-05 07:04] LABS: CALCIUM 6.7 mg/dL (8.5-10.1)
[2018-04-05 07:09] LABS: ALLENS TEST POSITIVE
[2018-04-05] MEDS ORDERED: PT OWN MED DRAWER 7, Y5N ONE ×3 (07:31→20:50)
[2018-04-05] MEDS ORDERED: SODIUM CHLORIDE 0.45% 1,000 ML IV SCH (07:45)
[2018-04-05 07:53] LABS: LDH 288 U/L (84-246)
--- NOTE | 2018-04-05 08:56 | PN ---
Progress Note (short form) - Note Progress Note: s/p ex lap andHartman's procedure- perforated diverticulitis, perforated sigmoid colon, multiple abscesses-04/03/18 levophed off alert remains intubated making urine Vital Signs Period Temp Pulse Resp BP Sys/Andrews Pulse Ox Last 24 Hr 97.9 F-99.2 F 69-106 16-28 94-142/44-63 98-100 cor-rrr lungs clear abd midline incision open and packed 2 tomas drain- serous bloody drainage left femoral shiley right IJ cvp a line kevin CBC, BMP 04/05/18 06:30 04/05/18 05:15 Microbiology 04/03/18 13:05 Peritoneal Fluid Gram Stain - Final 04/03/18 13:05 Peritoneal Fluid Body Fluid Culture - Preliminary Non Lactose Fermenting Gnb Escherichia Coli 04/02/18 22:30 Blood - Peripheral Venous Blood Culture - Preliminary NO GROWTH OBTAINED AFTER 48 HOURS, INCUBATION TO CONTINUE FOR 3 DAYS. 04/02/18 22:25 Blood - Peripheral Venous Blood Culture - Preliminary NO GROWTH OBTAINED AFTER 48 HOURS, INCUBATION TO CONTINUE FOR 3 DAYS. 04/02/18 23:05 Urine - Urine - Catheterized Urine Culture - Final NO GROWTH OBTAINED cxray no infiltrate Current Medications Acetaminophen (Ofirmev Injection -) 1,000 mg IVPB Q8H PRN PRN Reason: PAIN LEVEL 6-10 Albuterol Sulfate (Ventolin 0.083% Nebulizer Soln -) 1 amp NEB Q6H PRN PRN Reason: SHORT OF BREATH/WHEEZING Albuterol/Ipratropium (Duoneb -) 1 amp NEB Q4H PRN PRN Reason: SHORTNESS OF BREATH Chlorhexidine Gluconate (Hibiclens For Decolonization -) 1 applic TP HS MARY JANE Last Admin: 04/04/18 21:12 Dose: 1 applic Heparin Sodium (Porcine) (Heparin -) 5,000 unit SQ TID MARY JANE Last Admin: 04/05/18 06:10 Dose: 5,000 unit Norepinephrine Bitartrate 8, (000 mcg/ Dextrose) 500 mls @ 18.75 mls/hr IV TITR MARY JANE; Protocol Last Titration: 04/05/18 08:00 Dose: 0 mcg/min, 0 mls/hr Fentanyl 500 mcg/ Dextrose 100 mls @ 1 mls/hr IVPB TITR MARY JANE; Protocol Last Admin: 04/05/18 03:32 Dose: 50 mcg/hr, 10 mls/hr Vasopressin 50 units/ Sodium (Chloride) 100 mls @ 4.8 mls/hr IVPB TITR MARY JANE; Protocol Last Admin: 04/05/18 08:31 Dose: 4 units/hr, 8 mls/hr Metronidazole (Flagyl 500mg Premixed Ivpb -) 500 mg in 100 mls @ 100 mls/hr IVPB Q8H-IV MARY JANE Last Admin: 04/05/18 01:43 Dose: 100 mls/hr Piperacillin Sod/Tazobactam (Sod 2.25 gm/ Dextrose) 50 mls @ 100 mls/hr IVPB Q6H-IV MARY JANE; Protocol Last Admin: 04/05/18 02:04 Dose: 100 mls/hr Sodium Chloride (1/2 Normal Saline) 1,000 mls @ 100 mls/hr IV ASDIR MARY JANE Last Admin: 04/05/18 08:34 Dose: 100 mls/hr Levothyroxine Sodium (Synthroid Injection -) 18.75 mcg IVPUSH DAILY [facility] Last Admin: 04/04/18 09:27 Dose: 18.75 mcg Metoprolol Succinate (Toprol Xl -) 25 mg PO DAILY [facility] Metoprolol Tartrate (Lopressor Injection -) 5 mg IVPUSH Q4H PRN PRN Reason: HYPERTENSION Mupirocin (Bactroban Ointment (For Decolonization) -) 1 applic NS BID [facility] Stop: 04/09/18 21:59 Last Admin: 04/04/18 21:11 Dose: 1 applic Nystatin (Nystop Powder -) 1 applic TP DAILY [facility] Last Admin: 04/04/18 09:54 Dose: 1 applic Pantoprazole Sodium (Protonix Iv) 40 mg IVPUSH DAILY [facility] Last Admin: 04/04/18 12:44 Dose: 40 mg imp/reccd POD #2 s/p drainage of intrabdominal aabscess- s/p ex lap and Hartmans procedure - perforated diverticulitis Acute renal failure metabolic acidosis anemia continue zosyn/flagyl f/u operative cultures would d/c femoral shiley if not using Problem List - Problems (1) Intra-abdominal abscess Code(s): K65.1 - PERITONEAL ABSCESS (2) Acute kidney failure Code(s): N17.9 - ACUTE KIDNEY FAILURE, UNSPECIFIED
[2018-04-05] MEDS: PANTOPRAZOLE SODIUM 40 MG VIAL IVPUSH SCH (09:07)
[2018-04-05] MEDS: NYSTATIN POWDER 100,000 UNITS/GM - 15 GM TOPICAL POWDER TP SCH (09:09)
[2018-04-05] MEDS: MUPIROCIN 2% TOPICAL OINTMENT FOR DECOLONIZATION NS SCH ×2 (09:10→20:59)
[2018-04-05] MEDS: LEVOTHYROXINE SODIUM 100 MCG VIAL IVPUSH SCH (09:10)
[2018-04-05] MEDS: metoPROLOL SUCCINATE 25 MG TAB.SR.24H (FP) PO SCH (09:11)
[2018-04-05] MEDS ORDERED: DEXTROSE 5%-0.45% SALINE 1,000 ML IV SCH (10:15)
--- NOTE | 2018-04-05 10:28 | PN ---
Progress Note (short form) - Note Progress Note: 77yo F s/p ex-lap and Bess procedure. Pt seen and examined at bedside. Currently intubated, but awake. On pressors. Last Vital Signs Temp Pulse Resp BP Pulse Ox 98.8 F 100 H 16 132/53 L 95 04/05/18 08:44 04/05/18 10:00 04/05/18 10:00 04/05/18 10:00 04/05/18 10:18 CBC, BMP 04/05/18 06:30 04/05/18 05:15 PE: Gen: Awake, intubated Resp: vented Abd: soft, diffusely tender, distended, Ostomy has some brownish liquid no air, incision is clean with packing in place Problem List - Problems (1) Perforated bowel Assessment/Plan: Plan -continue monitor bowel/ostomy function -transfuse for low hgb -medical care per ICU/medicine team -will continue to follow Code(s): K63.1 - PERFORATION OF INTESTINE (NONTRAUMATIC)
[2018-04-05] MEDS ORDERED: morphine SULFATE 4 MG/ML VIAL IVPUSH PRN (11:11)
--- NOTE | 2018-04-05 12:26 | PN ---
Teaching Attending Note Name of Resident: Latrice Ott ATTENDING PHYSICIAN STATEMENT I saw and evaluated the patient. I reviewed the resident's note and discussed the case with the resident. I agree with the resident's findings and plan as documented. SUBJECTIVE: Pt seen and examined in the ICU. Intubated, awake on low dose vasopressin. Following commands, tolerated spontaneous breathing trials and subsequently extubated during rounds. OBJECTIVE: Vital Signs Period Temp Pulse Resp BP Sys/Andrews Pulse Ox Last 24 Hr 98.3 F-99.2 F 69-102 12-28 105-142/44-63 95-100 Intake & Output 04/02/18 04/03/18 04/04/18 04/05/18 23:59 23:59 23:59 23:59 Intake Total 7667 3148 1765 Output Total 3350 2100 1312 Balance 4317 1048 453 Weight 83.915 kg 83.915 kg 88.451 kg 90.945 kg Gen: extubated Heart: RRR Lung: scattered rhonchi Abd: soft, nontender, +ostomy pink Ext: + edema CBC, BMP 04/05/18 06:30 04/05/18 05:15 Active Medications Acetaminophen (Ofirmev Injection -) 1,000 mg IVPB Q8H PRN PRN Reason: PAIN LEVEL 6-10 Albuterol Sulfate (Ventolin 0.083% Nebulizer Soln -) 1 amp NEB Q6H PRN PRN Reason: SHORT OF BREATH/WHEEZING Albuterol/Ipratropium (Duoneb -) 1 amp NEB Q4H PRN PRN Reason: SHORTNESS OF BREATH Chlorhexidine Gluconate (Hibiclens For Decolonization -) 1 applic TP HS MARY JANE Last Admin: 04/04/18 21:12 Dose: 1 applic Heparin Sodium (Porcine) (Heparin -) 5,000 unit SQ TID MARY JANE Last Admin: 04/05/18 06:10 Dose: 5,000 unit Norepinephrine Bitartrate 8, (000 mcg/ Dextrose) 500 mls @ 18.75 mls/hr IV TITR MARY JANE; Protocol Last Titration: 04/05/18 08:00 Dose: 0 mcg/min, 0 mls/hr Vasopressin 50 units/ Sodium (Chloride) 100 mls @ 4.8 mls/hr IVPB TITR MARY JANE; Protocol Last Titration: 04/05/18 11:03 Dose: 0 units/hr, 0 mls/hr Metronidazole (Flagyl 500mg Premixed Ivpb -) 500 mg in 100 mls @ 100 mls/hr IVPB Q8H-IV [facility] Last Admin: 04/05/18 09:07 Dose: 100 mls/hr Piperacillin Sod/Tazobactam (Sod 2.25 gm/ Dextrose) 50 mls @ 100 mls/hr IVPB Q6H-IV MARY JANE; Protocol Last Admin: 04/05/18 09:05 Dose: 100 mls/hr Dextrose/Sodium Chloride (D5-1/2ns -) 1,000 mls @ 100 mls/hr IV ASDIR MARY JANE Levothyroxine Sodium (Synthroid Injection -) 18.75 mcg IVPUSH DAILY [facility] Last Admin: 04/05/18 09:10 Dose: 18.75 mcg Metoprolol Succinate (Toprol Xl -) 25 mg PO DAILY [facility] Last Admin: 04/05/18 09:11 Dose: Not Given Metoprolol Tartrate (Lopressor Injection -) 5 mg IVPUSH Q4H PRN PRN Reason: HYPERTENSION Morphine Sulfate (Morphine Sulfate) 4 mg IVPUSH Q4H PRN PRN Reason: PAIN LEVEL 6-10 Mupirocin (Bactroban Ointment (For Decolonization) -) 1 applic NS BID [facility] Stop: 04/09/18 21:59 Last Admin: 04/05/18 09:10 Dose: 1 applic Nystatin (Nystop Powder -) 1 applic TP DAILY [facility] Last Admin: 04/05/18 09:09 Dose: 1 applic Pantoprazole Sodium (Protonix Iv) 40 mg IVPUSH DAILY [facility] Last Admin: 04/05/18 09:07 Dose: 40 mg ASSESSMENT AND PLAN: Perforated Diverticulitis/Intra-abdominal Abscesses s/p ex-lap/SOPHIE/Bess's Procedure/Abdominal Washout Septic Shock Acute Hypoxic Respiratory Failure Metabolic Acidosis Acute Kidney Injury CAD s/p CABG HTN Hyperlipidemia Anemia - pt extubated - continue antibiotics - monitor fever curve, WBC trend - taper off pressors, maintain MAP >65 - IVF - monitor urine output, creatinine - transfuse PRBC - monitor H/H - pain control - await return of bowel function - DVT/GI prophylaxis - continue ICU monitoring critical care time spent in reviewing chart, evaluating patient and formulating plan 35 min
--- NOTE | 2018-04-05 13:29 | PN ---
Progress Note (short form) - Note Progress Note: SUBJECTIVE Patient seen and examined at the bedside. Extubated today. Awake and answering questions. OBJECTIVE Vital Signs Temperature 99.0 F 04/05/18 11:51 Pulse Rate 92 H 04/05/18 11:51 Respiratory Rate 12 04/05/18 11:51 Blood Pressure 119/54 L 04/05/18 11:51 O2 Sat by Pulse Oximetry (%) 95 04/05/18 11:31 General: Awake, alert Head: No signs of trauma Eyes: EOMI, sclera anicteric ENT: Dry mucus membranes Neck: Normal ROM, supple Lungs: Scattered rhonchi Cardio: Regular rhythm, S1 and S2 present Abdomen: Soft, ROGE drain present with serous output, ostomy with serous output and minimal stool Extremities: Normal range of motion, Distal pulses present SKIN: Warm, Dry, normal turgor Neurologic: Cranial nerves II through XII grossly intact ASSESSMENT 77yo with PMH of HTN, HLD, hypothyroidism, GERD, anxiety, found to have perforated diverticuli s/p ex-lap, adhesiolysis, drainage of abscesses, irrigation, Anthony's procedure, POD#2. Extubated after spontaneous breathing trial today. PLAN NEURO No longer sedated CV Anemia -Hgb=6.0 today -Transfused 1 unit PRBC -Anemia workup, FOBT Hypotension due to sepsis -levophed 2mcg/min and Vasopressin 4units -wean off of vasopressin and titrate down levophed as tolerated History of HTN, HLD -hold home meds while on pressors PULM Acute Respiratory Failure, improving -Extubated today after spontaneous breathing trial -now on Venti mask 40 GI POD#2 -Monitor bowel/ostomy function -Surgery following ID Septic Shock -Continue Zosyn/Flagyl -ID following ENDO Hypothyroidism -giving home synthroid IV RENAL MARKIE Improving metabolic acidosis and kidney function BUN/Ww=692/3.7 (down from 151/4.9) Plan to remove R. femoral dialysis catheter -Renal following FEN Giving D5-1/2NS at 100cc/hr for hypernatremia Follow electrolytes, replete as needed -Hyperphosphatemia: will need phosphate binder when able to tolerate PO NPO until return of bowel function PPX VTE: Heparin GI: PPI
--- NOTE | 2018-04-05 17:31 | PN ---
Progress Note, Physician History of Present Illness: Pt seen and examined at bedside. She is now extubated. Pt is making urine and renal function is improving. Reviewed chart and discussed with ICU. - Current Medication List Current Medications: Active Medications Acetaminophen (Ofirmev Injection -) 1,000 mg IVPB Q8H PRN PRN Reason: PAIN LEVEL 6-10 Albuterol Sulfate (Ventolin 0.083% Nebulizer Soln -) 1 amp NEB Q6H PRN PRN Reason: SHORT OF BREATH/WHEEZING Albuterol/Ipratropium (Duoneb -) 1 amp NEB Q4H PRN PRN Reason: SHORTNESS OF BREATH Chlorhexidine Gluconate (Hibiclens For Decolonization -) 1 applic TP HS [facility]ARY JANE Last Admin: 04/04/18 21:12 Dose: 1 applic Heparin Sodium (Porcine) (Heparin -) 5,000 unit SQ TID [facility] JANE Last Admin: 04/05/18 15:09 Dose: 5,000 unit Norepinephrine Bitartrate 8, (000 mcg/ Dextrose) 500 mls @ 18.75 mls/hr IV TITR MARY JANE; Protocol Last Titration: 04/05/18 08:00 Dose: 0 mcg/min, 0 mls/hr Vasopressin 50 units/ Sodium (Chloride) 100 mls @ 4.8 mls/hr IVPB TITR MARY JANE; Protocol Last Titration: 04/05/18 11:03 Dose: 0 units/hr, 0 mls/hr Metronidazole (Flagyl 500mg Premixed Ivpb -) 500 mg in 100 mls @ 100 mls/hr IVPB Q8H-IV [facility] Last Admin: 04/05/18 09:07 Dose: 100 mls/hr Piperacillin Sod/Tazobactam (Sod 2.25 gm/ Dextrose) 50 mls @ 100 mls/hr IVPB Q6H-IV [facility] JANE; Protocol Last Admin: 04/05/18 15:10 Dose: 100 mls/hr Dextrose/Sodium Chloride (D5-1/2ns -) 1,000 mls @ 100 mls/hr IV ASDIR MARY JANE Last Admin: 04/05/18 11:00 Dose: 100 mls/hr Levothyroxine Sodium (Synthroid Injection -) 18.75 mcg IVPUSH DAILY [facility] Last Admin: 04/05/18 09:10 Dose: 18.75 mcg Metoprolol Succinate (Toprol Xl -) 25 mg PO DAILY [facility] Last Admin: 04/05/18 09:11 Dose: Not Given Metoprolol Tartrate (Lopressor Injection -) 5 mg IVPUSH Q4H PRN PRN Reason: HYPERTENSION Morphine Sulfate (Morphine Sulfate) 4 mg IVPUSH Q4H PRN PRN Reason: PAIN LEVEL 6-10 Mupirocin (Bactroban Ointment (For Decolonization) -) 1 applic NS BID [facility] Stop: 04/09/18 21:59 Last Admin: 04/05/18 09:10 Dose: 1 applic Nystatin (Nystop Powder -) 1 applic TP DAILY [facility] Last Admin: 04/05/18 09:09 Dose: 1 applic Pantoprazole Sodium (Protonix Iv) 40 mg IVPUSH DAILY [facility] Last Admin: 04/05/18 09:07 Dose: 40 mg - Objective Vital Signs: Vital Signs Temperature 99.7 F H 04/05/18 16:00 Pulse Rate 93 H 04/05/18 16:00 Respiratory Rate 15 04/05/18 16:00 Blood Pressure 124/50 L 04/05/18 16:00 O2 Sat by Pulse Oximetry (%) 96 04/05/18 15:26 Constitutional: Yes: Calm, Mild Distress Eyes: Yes: Conjunctiva Clear Cardiovascular: Yes: S1, S2 Respiratory: Yes: On Nasal O2, Wheezes Gastrointestinal: Yes: Other (dressing in place, tomas drains) Genitourinary: Yes: [place] Present Musculoskeletal: Yes: Muscle Weakness Edema: Yes Integumentary: Yes: WNL Neurological: Yes: Lethargy Labs: CBC, BMP 04/05/18 06:30 04/05/18 05:15 INR, PTT INR 1.51 (0.83-1.09) H 04/02/18 10:40 - ....Imaging Chest X-ray: Report Reviewed Problem List - Problems (1) Acute kidney failure Code(s): N17.9 - ACUTE KIDNEY FAILURE, UNSPECIFIED Assessment/Plan Current Medications Generic Name Dose Route Start Last Admin Trade Name Freq PRN Reason Stop Dose Admin Acetaminophen 1,000 mg 04/04/18 18:57 Ofirmev Injection - IVPB Q8H PRN PAIN LEVEL 6-10 Albuterol Sulfate 1 amp 04/04/18 18:57 Ventolin 0.083% Nebulizer Soln - NEB Q6H PRN SHORT OF BREATH/WHEEZING Albuterol/Ipratropium 1 amp 04/04/18 18:57 Duoneb - NEB Q4H PRN SHORTNESS OF BREATH Chlorhexidine Gluconate 1 applic 04/04/18 22:00 04/04/18 21:12 Hibiclens For Decolonization - TP 1 applic HS MARY JANE Administration Heparin Sodium (Porcine) 5,000 unit 04/03/18 22:00 04/05/18 15:09 Heparin - SQ 5,000 unit TID MARY JANE Administration Norepinephrine Bitartrate 8, 500 mls @ 18.75 mls/hr 04/03/18 18:30 04/05/18 08:00 000 mcg/ Dextrose IV 0 mcg/min TITR MARY JANE 0 mls/hr Titration Protocol 5 MCG/MIN Vasopressin 50 units/ Sodium 100 mls @ 4.8 mls/hr 04/04/18 04:00 04/05/18 11: 03 Chloride IVPB 0 units/hr TITR MARY JANE 0 mls/hr Titration Protocol 2.4 UNITS/HR Metronidazole 500 mg in 100 mls @ 100 mls/hr 04/04/18 10:00 04/05/18 09:07 Flagyl 500mg Premixed Ivpb - IVPB 100 mls/hr Q8H-IV [facility]ANE Administration Piperacillin Sod/Tazobactam 50 mls @ 100 mls/hr 04/04/18 21:00 04/05/18 15:10 Sod 2.25 gm/ Dextrose IVPB 100 mls/hr Q6H-IV MARY JNAE Administration Protocol Dextrose/Sodium Chloride 1,000 mls @ 100 mls/hr 04/05/18 10:15 04/05/18 11:00 D5-1/2ns - IV 100 mls/hr ASDIR MARY JANE Administration Levothyroxine Sodium 18.75 mcg 04/04/18 10:00 04/05/18 09:10 Synthroid Injection - IVPUSH 18.75 mcg DAILY [facility]ARY [facility]ANE Administration Metoprolol Succinate 25 mg 04/05/18 10:00 04/05/18 09:11 Toprol Xl - PO Not Given DAILY [facility]ARY JANE Metoprolol Tartrate 5 mg 04/03/18 16:47 Lopressor Injection - IVPUSH Q4H PRN HYPERTENSION Morphine Sulfate 4 mg 04/05/18 11:11 Morphine Sulfate IVPUSH Q4H PRN PAIN LEVEL 6-10 Mupirocin 1 applic 04/04/18 22:00 04/05/18 09:10 Bactroban Ointment (For Decolonization) - NS 04/09/18 21:59 1 applic BID MARY JANE Administration Nystatin 1 applic 04/04/18 10:00 04/05/18 09:09 Nystop Powder - TP 1 applic DAILY [facility]ANE Administration Pantoprazole Sodium 40 mg 04/04/18 10:45 04/05/18 09:07 Protonix Iv IVPUSH 40 mg DAILY MARY JANE Administration Impression 1. MARKIE 2. resp failure 3. sepsis 4. perforated diverticula 5. acidosis 6. s/p ex-lap/SOPHIE/Bess's Procedure/Abdominal Washout 7. CAD 8. HTN 9. Hyperlipidemia 10. Anemia 11. hypernatremia Plan - renal function is improving - pt is making urine - monitor urine output - likely resolving ATN - cont hypotonic fluid and monitor sodium - discussed with ICU team - monitor pulse ox after extubation
[2018-04-05] MEDS: NOREPINEPHRINE BITARTRATE 8,000 MCG in DEXTROSE 5%-WATER - 492 ML IV SCH (20:06)
[2018-04-05 20:59] LABS: BASO % 0.1 % (0-2.0); EOS % 0.1 % (0-4.5); HEMATOCRIT 23.4 % (32.4-45.2); HEMOGLOBIN 8.2 GM/dL (10.7-15.3); MCH 28.9 pg (25.7-33.7); MCHC 34.8 g/dl (32.0-36.0); MEAN CELL VOLUME 83.1 fl (80-96); MEAN PLT VOLUME 7.2 fl (7.5-11.1); MONO % 5.2 % (3.8-10.2); NEUT % 87.6 % (42.8-82.8); PLATELET COUNT 319 K/MM3 (134-434); RBC 2.82 M/mm3 (3.60-5.2); RDW 16.3 % (11.6-15.6); WHITE BLOOD COUNT 17.4 K/mm3 (4.0-10.0)
[2018-04-05] MEDS: CHLORHEXIDINE GLUCONATE 4% CLEANSER FOR DECOLONIZATION TP SCH (21:00)
[2018-04-05 21:26] LABS: ANION GAP 9 MMOL/L (8-16); CHLORIDE 125 mmol/L (98-107); CO2 23 mmol/L (21-32); GLUCOSE,RANDOM 103 mg/dL (74-106); POTASSIUM 3.3 mmol/L (3.5-5.1); SODIUM 157 mmol/L (136-145)
[2018-04-05 21:31] LABS: BLOOD UREA NITROGEN 106 mg/dL (7-18); CALCIUM 6.9 mg/dL (8.5-10.1)
[2018-04-05] MEDS: KCL 10 MEQ IVPB 10 MEQ/100 ML INFUS.BAG IVPB SCH ×2 (22:36→23:00)
[2018-04-05] MEDS: DEXTROSE 5%-WATER - 1,000 ML IV SCH (22:36)
--- NOTE | 2018-04-05 23:11 | PN ---
Progress Note, Physician History of Present Illness: Pt extubated - Current Medication List Current Medications: Active Medications Acetaminophen (Ofirmev Injection -) 1,000 mg IVPB Q8H PRN PRN Reason: PAIN LEVEL 6-10 Albuterol Sulfate (Ventolin 0.083% Nebulizer Soln -) 1 amp NEB Q6H PRN PRN Reason: SHORT OF BREATH/WHEEZING Albuterol/Ipratropium (Duoneb -) 1 amp NEB Q4H PRN PRN Reason: SHORTNESS OF BREATH Chlorhexidine Gluconate (Hibiclens For Decolonization -) 1 applic TP HS MARY JANE Last Admin: 04/05/18 21:00 Dose: 1 applic Heparin Sodium (Porcine) (Heparin -) 5,000 unit SQ TID MARY JANE Last Admin: 04/05/18 20:59 Dose: 5,000 unit Norepinephrine Bitartrate 8, (000 mcg/ Dextrose) 500 mls @ 18.75 mls/hr IV TITR MARY JANE; Protocol Last Admin: 04/05/18 20:06 Dose: Not Given Metronidazole (Flagyl 500mg Premixed Ivpb -) 500 mg in 100 mls @ 100 mls/hr IVPB Q8H-IV MARY JANE Last Admin: 04/05/18 17:44 Dose: 100 mls/hr Piperacillin Sod/Tazobactam (Sod 2.25 gm/ Dextrose) 50 mls @ 100 mls/hr IVPB Q6H-IV MARY JANE; Protocol Last Admin: 04/05/18 20:58 Dose: 100 mls/hr Potassium Chloride (Potassium Chloride 10 Meq Premix Ivpb -) 10 meq in 100 mls @ 100 mls/hr IVPB Q60M [facility] Stop: 04/06/18 00:14 Last Admin: 04/05/18 22:36 Dose: 100 mls/hr Dextrose (D5w -) 1,000 mls @ 100 mls/hr IV ASDIR MARY JANE Last Admin: 04/05/18 22:36 Dose: 100 mls/hr Levothyroxine Sodium (Synthroid Injection -) 18.75 mcg IVPUSH DAILY [facility] Last Admin: 04/05/18 09:10 Dose: 18.75 mcg Metoprolol Succinate (Toprol Xl -) 25 mg PO DAILY [facility] Last Admin: 04/05/18 09:11 Dose: Not Given Metoprolol Tartrate (Lopressor Injection -) 5 mg IVPUSH Q4H PRN PRN Reason: HYPERTENSION Morphine Sulfate (Morphine Sulfate) 4 mg IVPUSH Q4H PRN PRN Reason: PAIN LEVEL 6-10 Mupirocin (Bactroban Ointment (For Decolonization) -) 1 applic NS BID [facility] Stop: 04/09/18 21:59 Last Admin: 04/05/18 20:59 Dose: 1 applic Nystatin (Nystop Powder -) 1 applic TP DAILY [facility] Last Admin: 04/05/18 09:09 Dose: 1 applic Pantoprazole Sodium (Protonix Iv) 40 mg IVPUSH DAILY [facility] Last Admin: 04/05/18 09:07 Dose: 40 mg - Objective Vital Signs: Vital Signs Temperature 99.7 F H 04/05/18 16:00 Pulse Rate 87 04/05/18 17:42 Respiratory Rate 15 04/05/18 17:42 Blood Pressure 128/64 04/05/18 17:42 O2 Sat by Pulse Oximetry (%) 95 04/05/18 22:00 Neck: Yes: WNL, Supple Cardiovascular: Yes: WNL, Regular Rate and Rhythm Respiratory: Yes: Diminished Gastrointestinal: Yes: Soft, Other ((+) ostomy (+) ROGE drainage tubes w/ serosangrinous fluid) Labs: CBC, BMP 04/05/18 20:00 04/05/18 20:00 INR, PTT INR 1.51 (0.83-1.09) H 04/02/18 10:40 Problem List - Problems (1) Intra-abdominal abscess Assessment/Plan: S/P exp lap/lysis of adhesions/drainage of abscesses/Anthony's procedure/ colostomy Cont IVF/NPO Cont IV zosyn/flagyl Code(s): K65.1 - PERITONEAL ABSCESS (2) Acute respiratory failure Assessment/Plan: Pt extubated Code(s): J96.00 - ACUTE RESPIRATORY FAILURE, UNSP W HYPOXIA OR HYPERCAPNIA (3) Septic shock Assessment/Plan: Cont IV zosyn/flagyl Cont pressors wc are being tapered Wound culture(+) for nonlactose fermenting Gnb BC remain negative Code(s): A41.9 - SEPSIS, UNSPECIFIED ORGANISM; R65.21 - SEVERE SEPSIS WITH SEPTIC SHOCK (4) Acute kidney failure Assessment/Plan: Cont IVF Monitor labs Code(s): N17.9 - ACUTE KIDNEY FAILURE, UNSPECIFIED (5) Altered mental state Assessment/Plan: Due to infectious encephalopathy/sepsis Awake Code(s): R41.82 - ALTERED MENTAL STATUS, UNSPECIFIED (6) Anemia Assessment/Plan: Monitor H/H Pt transfused 1 unit PRBC's Code(s): D64.9 - ANEMIA, UNSPECIFIED (7) Depression with anxiety Code(s): F41.8 - OTHER SPECIFIED ANXIETY DISORDERS (8) HLD (hyperlipidemia) Code(s): E78.5 - HYPERLIPIDEMIA, UNSPECIFIED (9) HTN (hypertension) Code(s): I10 - ESSENTIAL (PRIMARY) HYPERTENSION Qualifiers: Hypertension type: essential hypertension Qualified Code(s): I10 - Essential (primary) hypertension (10) Hypothyroidism Assessment/Plan: Cont IV levothyroxine Code(s): E03.9 - HYPOTHYROIDISM, UNSPECIFIED Qualifiers: Hypothyroidism type: acquired Qualified Code(s): E03.9 - Hypothyroidism, unspecified
[2018-04-06 01:39] LABS: ANION GAP 7 MMOL/L (8-16); BLOOD UREA NITROGEN 96 mg/dL (7-18); CHLORIDE 127 mmol/L (98-107); CO2 24 mmol/L (21-32); CREATININE 2.9 mg/dL (0.55-1.3); GLUCOSE,RANDOM 96 mg/dL (74-106); POTASSIUM 3.7 mmol/L (3.5-5.1); SODIUM 158 mmol/L (136-145)
[2018-04-06 01:43] LABS: CALCIUM 6.6 mg/dL (8.5-10.1)
[2018-04-06] MEDS: PIPERACILLIN/TAZOB 2.25 GM 2.25 GM in DEXTROSE 5%-WATER - 50 ML IVPB SCH ×4 (03:08→21:48)
[2018-04-06 04:14] LABS: SERUM IRON SATURATION 34 % (15-55); TOTAL IRON BINDING CAPACITY 167 ug/dL (250-450); UIBC 111 ug/dL (118-369)
[2018-04-06] MEDS: HEPARIN NA (PORCINE) 5,000 UNITS/ML 1ML VIAL SQ SCH ×3 (05:27→21:47)
[2018-04-06 06:26] LABS: BASO % 0.1 % (0-2.0); EOS % 0.1 % (0-4.5); HEMATOCRIT 22.7 % (32.4-45.2); HEMOGLOBIN 8.1 GM/dL (10.7-15.3); LYMPH % 9.2 % (8-40); MCH 29.2 pg (25.7-33.7); MCHC 35.5 g/dl (32.0-36.0); MEAN CELL VOLUME 82.3 fl (80-96); MONO % 5.7 % (3.8-10.2); NEUT % 84.9 % (42.8-82.8); PLATELET COUNT 321 K/MM3 (134-434); RBC 2.76 M/mm3 (3.60-5.2); RDW 17.1 % (11.6-15.6); WHITE BLOOD COUNT 15.1 K/mm3 (4.0-10.0)
[2018-04-06 06:47] LABS: ALBUMIN 1.3 g/dl (3.4-5.0); ALK PHOS 38 U/L (45-117); ANION GAP 8 MMOL/L (8-16); BLOOD UREA NITROGEN 94 mg/dL (7-18); CHLORIDE 127 mmol/L (98-107); CO2 24 mmol/L (21-32); CREATININE 2.8 mg/dL (0.55-1.3); GLUCOSE,RANDOM 123 mg/dL (74-106); MAGNESIUM 1.8 mg/dL (1.8-2.4); PHOSPHOROUS 5.8 mg/dL (2.5-4.9); POTASSIUM 3.5 mmol/L (3.5-5.1); SGOT/AST 44 U/L (15-37); SGPT/ALT 30 U/L (13-61); SODIUM 159 mmol/L (136-145); TOT PROT 4.9 g/dl (6.4-8.2)
[2018-04-06 07:00] LABS: CALCIUM 6.9 mg/dL (8.5-10.1)
[2018-04-06] MEDS ORDERED: SODIUM CHLORIDE 1,000 ML IV SCH (07:45)
--- NOTE | 2018-04-06 07:49 | PN ---
Progress Note (short form) - Note Progress Note: surgery POD #3 s/p ex-lap and Bess procedure. Pt seen and examined at bedside. Patient extubated yesterday. Resting comfortably Vital Signs Temp 97.6 F 04/06/18 06:00 Pulse 86 04/06/18 06:00 Resp 19 04/06/18 06:00 BP 146/59 L 04/06/18 06:00 Pulse Ox 95 04/05/18 22:00 Intake & Output 04/05/18 04/05/18 04/06/18 11:59 23:59 11:59 Intake Total 1765 1300 1391 Output Total 1312 2560 1250 Balance 453 -1260 141 Weight 200 lb 8 oz 195 lb 7 oz Intake: IV 5319 147 9471 D5-1/2Ns - 1,000 ml @ 100 100 mls/hr IV ASDIR MARY JANE Rx#: [id number] D5w - 1,000 ml @ 100 mls/ 1191 hr IV ASDIR MARY JANE Rx#: [id number] LACTATED RINGERS SOLUTION 1200 200 1,000 ml In 1,000 ml @ 100 mls/hr IV ASDIR MARY JANE Rx#:[id number] Levophed - 8,000 Mcg In 130 D5w - 492 ml @ 5 MCG/MIN 18.75 mls/hr IV TITR MARY JANE Rx#:[id number] Pitressin - 50 Units In 116 Normal Saline - 97.5 ml @ 2.4 UNITS/HR 4.8 mls/hr IVPB TITR MARY JANE Rx#: [id number] Sublimaze Injection - 500 169 Mcg In D5w - 90 ml @ 5 MCG/HR 1 mls/hr IVPB TITR MARY JANE Rx#:[id number] IVPB 150 300 200 Packed Cells 700 Output: Drainage 12 160 150 Left Abdomen 5 90 90 Right Abdomen 7 70 60 Urine 1300 2400 1100 [place] 1300 2400 1100 Other: Voiding Method Indwelling Catheter Indwelling Catheter Bowel Movement Yes: colostomy small amount Yes Weight Measurement Method Built [facility] CBC, BMP 04/06/18 05:30 04/06/18 05:30 PE: Gen: Awake, responds to stimuli but does not follow commands, makes eye contact and attempts to speak. Resp: Unlabored resp on 2L NC Abd: Obese, soft, diffusely tender, distended, Ostomy pink with solid stool and brownish liquid, minimal air, incision C/D/I, packed wet to dry with no foul odor and no active d/c. surrounding tissue intact. Drains at RLQ and LLQ secure with SS d/c. P Problem List - Problems (1) Status post Anthony's procedure Assessment/Plan: POD# 3 doing well. Plan -continue monitor bowel/ostomy function -transfuse for low hgb -medical care per ICU/medicine team - daily dressing packing as ordered. - DVT and GI prophylaxis - NPO -surgery to follow Evaluation and plan discussed with Dr Hamilton Code(s): Z93.3 - COLOSTOMY STATUS
[2018-04-06] MEDS ORDERED: PT OWN MED DRAWER 7, Y5N ONE (10:03)
[2018-04-06] MEDS ORDERED: PIPERACILLIN/TAZOBACTAM 2.25 GM VIAL IVPB ONE ×3 (10:03→20:53)
[2018-04-06] MEDS ORDERED: DEXTROSE 5%-WATER - 50 ML IVPB ONE ×3 (10:04→20:53)
[2018-04-06] MEDS: MUPIROCIN 2% TOPICAL OINTMENT FOR DECOLONIZATION NS SCH ×2 (10:09→21:46)
[2018-04-06] MEDS: PANTOPRAZOLE SODIUM 40 MG VIAL IVPUSH SCH (10:10)
[2018-04-06] MEDS: NYSTATIN POWDER 100,000 UNITS/GM - 15 GM TOPICAL POWDER TP SCH (10:10)
[2018-04-06] MEDS: LEVOTHYROXINE SODIUM 100 MCG VIAL IVPUSH SCH (10:11)
[2018-04-06] MEDS: metoPROLOL SUCCINATE 25 MG TAB.SR.24H (FP) PO SCH (10:15)
[2018-04-06] MEDS: DEXTROSE 5%-WATER - 1,000 ML IV SCH (11:34)
[2018-04-06] MEDS ORDERED: DEXTROSE 5%-WATER - 1,000 ML IV SCH ×3 (11:34→22:10)
--- NOTE | 2018-04-06 12:11 | PN ---
Teaching Attending Note Name of Resident: Latrice Ott ATTENDING PHYSICIAN STATEMENT I saw and evaluated the patient. I reviewed the resident's note and discussed the case with the resident. I agree with the resident's findings and plan as documented. SUBJECTIVE: Pt seen and examined in the ICU. Extubated yesterday without incident. Mental status improved but has word finding. Off pressors. OBJECTIVE: Vital Signs Period Temp Pulse Resp BP Sys/Andrews Pulse Ox Last 24 Hr 97.6 F-99.7 F 68-97 14-19 111-146/43-67 95-98 Intake & Output 04/03/18 04/04/18 04/05/18 04/06/18 23:59 23:59 23:59 23:59 Intake Total 7667 3148 3065 1391 Output Total 3350 2100 3872 1370 Balance 4317 1048 -807 21 Weight 83.915 kg 88.451 kg 90.945 kg 88.649 kg Gen: NAD but some word finding Heart: RRR Lung: decreased breath sounds at the bases Abd: soft, +ostomy pink Ext: no edema CBC, BMP 04/06/18 05:30 04/06/18 05:30 Active Medications Acetaminophen (Ofirmev Injection -) 1,000 mg IVPB Q8H PRN PRN Reason: PAIN LEVEL 6-10 Albuterol Sulfate (Ventolin 0.083% Nebulizer Soln -) 1 amp NEB Q6H PRN PRN Reason: SHORT OF BREATH/WHEEZING Albuterol/Ipratropium (Duoneb -) 1 amp NEB Q4H PRN PRN Reason: SHORTNESS OF BREATH Last Admin: 04/06/18 11:25 Dose: 1 amp Chlorhexidine Gluconate (Hibiclens For Decolonization -) 1 applic TP HS MARY JANE Last Admin: 04/05/18 21:00 Dose: 1 applic Heparin Sodium (Porcine) (Heparin -) 5,000 unit SQ TID MARY JANE Last Admin: 04/06/18 05:27 Dose: 5,000 unit Norepinephrine Bitartrate 8, (000 mcg/ Dextrose) 500 mls @ 18.75 mls/hr IV TITR MARY JANE; Protocol Last Admin: 04/05/18 20:06 Dose: Not Given Metronidazole (Flagyl 500mg Premixed Ivpb -) 500 mg in 100 mls @ 100 mls/hr IVPB Q8H-IV MARY JANE Last Admin: 04/06/18 10:09 Dose: 100 mls/hr Piperacillin Sod/Tazobactam (Sod 2.25 gm/ Dextrose) 50 mls @ 100 mls/hr IVPB Q6H-IV MARY JANE; Protocol Last Admin: 04/06/18 10:06 Dose: 100 mls/hr Dextrose (D5w -) 1,000 mls @ 75 mls/hr IV ASDIR [facility] Last Admin: 04/06/18 11:36 Dose: 75 mls/hr Levothyroxine Sodium (Synthroid Injection -) 18.75 mcg IVPUSH DAILY [facility] Last Admin: 04/06/18 10:11 Dose: 18.75 mcg Metoprolol Succinate (Toprol Xl -) 25 mg PO DAILY [facility] Last Admin: 04/06/18 10:15 Dose: Not Given Metoprolol Tartrate (Lopressor Injection -) 5 mg IVPUSH Q4H PRN PRN Reason: HYPERTENSION Morphine Sulfate (Morphine Sulfate) 4 mg IVPUSH Q4H PRN PRN Reason: PAIN LEVEL 6-10 Mupirocin (Bactroban Ointment (For Decolonization) -) 1 applic NS BID [facility] Stop: 04/09/18 21:59 Last Admin: 04/06/18 10:09 Dose: 1 applic Nystatin (Nystop Powder -) 1 applic TP DAILY [facility] Last Admin: 04/06/18 10:10 Dose: 1 applic Pantoprazole Sodium (Protonix Iv) 40 mg IVPUSH DAILY [facility] Last Admin: 04/06/18 10:10 Dose: 40 mg ASSESSMENT AND PLAN: Perforated Diverticulitis/Intra-abdominal Abscesses s/p ex-lap/SOPHIE/Bess's Procedure/Abdominal Washout Septic Shock resolving Acute Hypoxic Respiratory Failure Metabolic Acidosis Acute Kidney Injury CAD s/p CABG HTN Hyperlipidemia Anemia - continue antibiotics - monitor fever curve, WBC trend - monitoring off pressors, maintain MAP >65 - hypotonic IVF - monitor urine output, creatinine - monitor H/H - pain control - await return of bowel function - DVT/GI prophylaxis - can monitor on floor critical care time spent in reviewing chart, evaluating patient and formulating plan 35 min
--- NOTE | 2018-04-06 13:35 | PN ---
Progress Note, Physician History of Present Illness: Pt seen and examined at bedside. She is out of bed to chair. She is asking for water. She denies shortness of breath. - Current Medication List Current Medications: Active Medications Acetaminophen (Ofirmev Injection -) 1,000 mg IVPB Q8H PRN PRN Reason: PAIN LEVEL 6-10 Albuterol Sulfate (Ventolin 0.083% Nebulizer Soln -) 1 amp NEB Q6H PRN PRN Reason: SHORT OF BREATH/WHEEZING Albuterol/Ipratropium (Duoneb -) 1 amp NEB Q4H PRN PRN Reason: SHORTNESS OF BREATH Last Admin: 04/06/18 11:25 Dose: 1 amp Chlorhexidine Gluconate (Hibiclens For Decolonization -) 1 applic TP HS MARY JANE Last Admin: 04/05/18 21:00 Dose: 1 applic Heparin Sodium (Porcine) (Heparin -) 5,000 unit SQ TID MARY JANE Last Admin: 04/06/18 05:27 Dose: 5,000 unit Norepinephrine Bitartrate 8, (000 mcg/ Dextrose) 500 mls @ 18.75 mls/hr IV TITR MARY JANE; Protocol Last Admin: 04/05/18 20:06 Dose: Not Given Metronidazole (Flagyl 500mg Premixed Ivpb -) 500 mg in 100 mls @ 100 mls/hr IVPB Q8H-IV MARY JANE Last Admin: 04/06/18 10:09 Dose: 100 mls/hr Piperacillin Sod/Tazobactam (Sod 2.25 gm/ Dextrose) 50 mls @ 100 mls/hr IVPB Q6H-IV MARY JANE; Protocol Last Admin: 04/06/18 10:06 Dose: 100 mls/hr Dextrose (D5w -) 1,000 mls @ 75 mls/hr IV ASDIR MARY JANE Last Admin: 04/06/18 11:36 Dose: 75 mls/hr Levothyroxine Sodium (Synthroid Injection -) 18.75 mcg IVPUSH DAILY MARY JANE Last Admin: 04/06/18 10:11 Dose: 18.75 mcg Metoprolol Succinate (Toprol Xl -) 25 mg PO DAILY MARY JANE Last Admin: 04/06/18 10:15 Dose: Not Given Metoprolol Tartrate (Lopressor Injection -) 5 mg IVPUSH Q4H PRN PRN Reason: HYPERTENSION Morphine Sulfate (Morphine Sulfate) 4 mg IVPUSH Q4H PRN PRN Reason: PAIN LEVEL 6-10 Mupirocin (Bactroban Ointment (For Decolonization) -) 1 applic NS BID [facility] Stop: 04/09/18 21:59 Last Admin: 04/06/18 10:09 Dose: 1 applic Nystatin (Nystop Powder -) 1 applic TP DAILY [facility] Last Admin: 04/06/18 10:10 Dose: 1 applic Pantoprazole Sodium (Protonix Iv) 40 mg IVPUSH DAILY [facility] Last Admin: 04/06/18 10:10 Dose: 40 mg - Objective Vital Signs: Vital Signs Temperature 98.2 F 04/06/18 10:00 Pulse Rate 82 04/06/18 12:00 Respiratory Rate 18 04/06/18 12:00 Blood Pressure 136/67 04/06/18 12:00 O2 Sat by Pulse Oximetry (%) 98 04/06/18 09:00 Constitutional: Yes: Calm Eyes: Yes: Conjunctiva Clear HENT: Yes: Atraumatic Neck: Yes: Supple Cardiovascular: Yes: S1, S2 Respiratory: Yes: On Nasal O2 Gastrointestinal: Yes: Other (dressing in place, tomas drain) Musculoskeletal: Yes: WNL Edema: No Neurological: Yes: Oriented Psychiatric: Yes: Oriented Labs: CBC, BMP 04/06/18 05:30 04/06/18 05:30 INR, PTT INR 1.51 (0.83-1.09) H 04/02/18 10:40 Problem List - Problems (1) Acute kidney failure Code(s): N17.9 - ACUTE KIDNEY FAILURE, UNSPECIFIED Assessment/Plan Current Medications Generic Name Dose Route Start Last Admin Trade Name Freq PRN Reason Stop Dose Admin Acetaminophen 1,000 mg 04/04/18 18:57 Ofirmev Injection - IVPB Q8H PRN PAIN LEVEL 6-10 Albuterol Sulfate 1 amp 04/04/18 18:57 Ventolin 0.083% Nebulizer Soln - NEB Q6H PRN SHORT OF BREATH/WHEEZING Albuterol/Ipratropium 1 amp 04/04/18 18:57 04/06/18 11:25 Duoneb - NEB 1 amp Q4H PRN Administration SHORTNESS OF BREATH Chlorhexidine Gluconate 1 applic 04/04/18 22:00 04/05/18 21:00 Hibiclens For Decolonization - TP 1 applic HS MARY JANE Administration Heparin Sodium (Porcine) 5,000 unit 04/03/18 22:00 04/06/18 05:27 Heparin - SQ 5,000 unit TID MARY JANE Administration Norepinephrine Bitartrate 8, 500 mls @ 18.75 mls/hr 04/03/18 18:30 04/05/18 20:06 000 mcg/ Dextrose IV Not Given TITR MARY JANE Protocol 5 MCG/MIN Metronidazole 500 mg in 100 mls @ 100 mls/hr 04/04/18 10:00 04/06/18 10:09 Flagyl 500mg Premixed Ivpb - IVPB 100 mls/hr Q8H-IV MARY JANE Administration Piperacillin Sod/Tazobactam 50 mls @ 100 mls/hr 04/04/18 21:00 04/06/18 10:06 Sod 2.25 gm/ Dextrose IVPB 100 mls/hr Q6H-IV MARY JANE Administration Protocol Dextrose 1,000 mls @ 75 mls/hr 04/06/18 11:34 04/06/18 11:36 D5w - IV 75 mls/hr ASDIR MARY JANE Administration Levothyroxine Sodium 18.75 mcg 04/04/18 10:00 04/06/18 10:11 Synthroid Injection - IVPUSH 18.75 mcg DAILY MARY JANE Administration Metoprolol Succinate 25 mg 04/05/18 10:00 04/06/18 10:15 Toprol Xl - PO Not Given DAILY MARY JANE Metoprolol Tartrate 5 mg 04/03/18 16:47 Lopressor Injection - IVPUSH Q4H PRN HYPERTENSION Morphine Sulfate 4 mg 04/05/18 11:11 Morphine Sulfate IVPUSH Q4H PRN PAIN LEVEL 6-10 Mupirocin 1 applic 04/04/18 22:00 04/06/18 10:09 Bactroban Ointment (For Decolonization) - NS 04/09/18 21:59 1 applic BID MARY JANE Administration Nystatin 1 applic 04/04/18 10:00 04/06/18 10:10 Nystop Powder - TP 1 applic DAILY MARY JANE Administration Pantoprazole Sodium 40 mg 04/04/18 10:45 04/06/18 10:10 Protonix Iv IVPUSH 40 mg DAILY MARY JANE Administration Impression 1. MARKIE 2. resp failure 3. sepsis 4. perforated diverticula 5. acidosis 6. s/p ex-lap/SOPHIE/Bess's Procedure/Abdominal Washout 7. CAD 8. HTN 9. Hyperlipidemia 10. Anemia 11. hypernatremia Plan - pt has a total free water deficit of about 5.4 liters - she needs about 2.6 liters to get her from 159 to 149 - d5w at 100 cc per hour - cont to monitor sodium - avoid a change of greater than 10 in 24 hours - replace potassium
--- NOTE | 2018-04-06 14:15 | PN ---
Progress Note (short form) - Note Progress Note: SUBJECTIVE Patient seen and examined at the bedside. Extubated 04/05/18. More awake today, answering questions, but seems confused and is not back to her neurological baseline. Per family member, she lives alone and performs all ADLs. OBJECTIVE Vital Signs Temperature 98.2 F 04/06/18 10:00 Pulse Rate 67 04/06/18 13:40 Respiratory Rate 18 04/06/18 13:40 Blood Pressure 137/67 04/06/18 13:40 O2 Sat by Pulse Oximetry (%) 98 04/06/18 09:00 General: Awake, alert Head: No signs of trauma Eyes: EOMI, sclera anicteric ENT: Dry mucus membranes Neck: Normal ROM, supple Lungs: Scattered rhonchi Cardio: Regular rhythm, S1 and S2 present Abdomen: Soft, ROGE drain present with serous output, ostomy with serous output and more stool than yesterday but still scant amount Extremities: Normal range of motion, Distal pulses present SKIN: Warm, Dry, normal turgor Neurologic: Cranial nerves II through XII grossly intact ASSESSMENT 77yo with PMH of HTN, HLD, hypothyroidism, GERD, anxiety, found to have perforated diverticuli s/p ex-lap, adhesiolysis, drainage of abscesses, irrigation, Anthony's procedure, POD#3. Extubated after spontaneous breathing trial 04/05/18. PLAN NEURO No longer sedated Talking, but confused with word finding difficulty Head CT on 04/03 without acute pathology Repeat head CT pending CV Anemia -Hgb=8.1 today -Transfused total of 3 units PRBC 04/05/18 -FOBT positive Hypotension due to sepsis, resolved -weaned off pressors on 04/05/18 History of HTN, HLD -hold home meds until tolerating po PULM Acute Respiratory Failure, resolved -Extubated, transitioned to Venti mask and NC, now satting 95 on RA GI POD#3 -Monitor bowel/ostomy function -Surgery following ID Septic Shock -Continue Zosyn/Flagyl -ID following ENDO Hypothyroidism -giving home synthroid IV RENAL MARKIE Improving metabolic acidosis and kidney function BUN/Cr= 94/2.8 (down from 125/3.7) Hypernatremia, giving D5W -Avoid a change >10 in 24 hours -Renal following FEN Giving D5W at 100cc/hr for hypernatremia Follow electrolytes, replete as needed -Hyperphosphatemia: will need phosphate binder when able to tolerate PO -Hypokalemia, repleted NPO until return of bowel function PPX VTE: Heparin GI: PPI #Disposition: Patient safe for transfer to the floor pending repeat head CT without acute pathology
[2018-04-06] MEDS: KCL 10 MEQ IVPB 10 MEQ/100 ML INFUS.BAG IVPB SCH ×2 (15:41→18:24)
--- NOTE | 2018-04-06 17:05 | PN ---
Progress Note (short form) - Note Progress Note: pod #3 s/p ex lap andHartman's procedure- perforated diverticulitis, perforated sigmoid colon, multiple abscesses extubated yesterday off pressors oob in chair today Vital Signs Period Temp Pulse Resp BP Sys/Andrews Pulse Ox Last 24 Hr 97.6 F-99.4 F 67-87 15-20 111-154/43-67 95-98 cor-rrr lungs decreased bs at bases abd soft, midline dressing intact, +tomas drains, +ostomy ext no edema CBC, BMP 04/06/ 05:30 04/06/18 05:30 Microbiology 04/03/18 13:05 Peritoneal Fluid Gram Stain - Final 04/03/18 13:05 Peritoneal Fluid Body Fluid Culture - Preliminary Non Lactose Fermenting Gnb Escherichia Coli Beta Hem Streptococcus Group F Pending Organism#2 04/03/18 13:05 Peritoneal Fluid Anaerobic Culture - Final Bacteroides Fragilis 04/02/18 22:30 Blood - Peripheral Venous Blood Culture - Preliminary NO GROWTH OBTAINED AFTER 72 HOURS, INCUBATION TO CONTINUE FOR 2 DAYS. 04/02/18 22:25 Blood - Peripheral Venous Blood Culture - Preliminary NO GROWTH OBTAINED AFTER 72 HOURS, INCUBATION TO CONTINUE FOR 2 DAYS. 04/02/18 23:05 Urine - Urine - Catheterized Urine Culture - Final NO GROWTH OBTAINED imp/reccd POD #3 s/p drainage of intrabdominal aabscess- s/p ex lap and Hartmans procedure - perforated diverticulitis(surgery 2/) Acute renal failure-improved metabolic acidosis resolved anemia continue zosyn/flagyl f/u operative cultures dw family at bedside Problem List - Problems (1) Intra-abdominal abscess Code(s): K65.1 - PERITONEAL ABSCESS (2) Acute kidney failure Code(s): N17.9 - ACUTE KIDNEY FAILURE, UNSPECIFIED
--- NOTE | 2018-04-06 17:39 | PATH ---
Surgical Pathology Report Patient Name: ZOIE GUTIERREZ [facility]. Rec. #: [id number] /Age/Gender: 1940 (Age: 77) / F Account: [id number] Location: ICU PSYCHIATRIC SPECIALIST Taken: 04/03/2018 Received: 04/05/2018 Reported: 04/06/2018 Physicians: Be Parada M.D. PHYSICIAN EMERGENCY DEPT Specimen(s) Received RECTAL SIGMOID Clinical History Abdominal distention Final Diagnosis RECTOSIGMOID COLON, RESECTION: SEGMENT OF COLON WITH DIVERTICULOSIS, DIVERTICULITIS WITH MUCOSAL DISCONTINUATION COMPATIBLE WITH CLINICAL RUPTURE, AND ASSOCIATED ABSCESS FORMATION. ACUTE SEROSITIS. SURGICAL MARGINS ARE VIABLE. Electronically Signed Glory Costello M.D. Gross Description Received in formalin labeled "rectosigmoid colon" is a 16 cm in length portion of colon with one stapled and one open mucosal margin. The specimen displays moderate attached pericolonic adipose tissue. The serosa is siddiqui-corley with attached exudate. No definitive rupture site is identified grossly. The mucosa is siddiqui with normal folds. No mucosal masses are identified. Sectioning reveals a focal abscess cavity containing pus surrounding the colon, possibly consistent with the rupture site. There are multiple uncomplicated diverticula present, some of which contain fecal material. Log Processor Operator sections are submitted in 13 cassettes as follows: 1-stapled mucosal margin; 2-open mucosal margin; 3-5-colon with surrounding abscess cavity;-13-additional diverticula. /04/05/201804/05/2018
[2018-04-06] MEDS: CHLORHEXIDINE GLUCONATE 4% CLEANSER FOR DECOLONIZATION TP SCH (21:48)
[2018-04-06] MEDS ORDERED: ACETAMINOPHEN 1000 MG/100 ML VIAL (NON FORMULARY) IVPB PRN (22:10)
[2018-04-06] MEDS ORDERED: METOPROLOL TARTRATE 5 MG/5 ML VIAL IVPUSH PRN (22:10)
[2018-04-06] MEDS ORDERED: morphine SULFATE 4 MG/ML VIAL IVPUSH PRN (22:10)
[2018-04-06] MEDS ORDERED: ALBUTEROL SO4 2.5/IPRATROPIUM 0.5 INH SOL 3 ML VIAL.NEB. NEB PRN (22:10)
[2018-04-06] MEDS ORDERED: ALBUTEROL SO4 0.083% IH SOL 2.5 MG/3 ML VIAL.NEB. NEB PRN (22:10)
[2018-04-07] MEDS ORDERED: PIPERACILLIN/TAZOBACTAM 2.25 GM VIAL IVPB ONE ×4 (01:08→21:03)
[2018-04-07] MEDS ORDERED: DEXTROSE 5%-WATER - 50 ML IVPB ONE ×4 (01:08→21:03)
[2018-04-07] MEDS: LYTES/YERBA SANTA 240 ML BOTTLE MM SCH ×2 (02:21→10:38)
[2018-04-07] MEDS: PIPERACILLIN/TAZOB 2.25 GM 2.25 GM in DEXTROSE 5%-WATER - 50 ML IVPB SCH ×4 (02:21→21:00)
[2018-04-07] MEDS ORDERED: PT OWN MED DRAWER 7, Y5N ONE ×4 (06:15→10:00)
[2018-04-07] MEDS: HEPARIN NA (PORCINE) 5,000 UNITS/ML 1ML VIAL SQ SCH ×3 (06:17→22:28)
[2018-04-07 07:00] LABS: BASO % 0.1 % (0-2.0); EOS % 0.6 % (0-4.5); HEMATOCRIT 23.8 % (32.4-45.2); HEMOGLOBIN 8.5 GM/dL (10.7-15.3); LYMPH % 12.6 % (8-40); MCH 29.8 pg (25.7-33.7); MCHC 35.9 g/dl (32.0-36.0); MEAN CELL VOLUME 83.1 fl (80-96); MEAN PLT VOLUME 7.1 fl (7.5-11.1); NEUT % 80.7 % (42.8-82.8); PLATELET COUNT 320 K/MM3 (134-434); RBC 2.86 M/mm3 (3.60-5.2); RDW 17.2 % (11.6-15.6); WHITE BLOOD COUNT 12.6 K/mm3 (4.0-10.0)
--- NOTE | 2018-04-07 07:19 | PN ---
Progress Note (short form) - Note Progress Note: POD #4 s/p exploratory laparotomy, lysis of adhesions, leigh's procedure, drainage of multiple abcesses, copious irrigation Extubated yesterday. Alert. No acute events over past 24 hours per RN notes. Patient c/o incisional tenderness. Pain managed well with medications ordered. Hasn't been oob yet. Per notes, patients colostomy is functioning as indicated by flatus in the bag and stool. Denies n/v/f/c, CP, palpitations, SOB or QUEEN. Last Vital Signs Temp Pulse Resp BP Pulse Ox 99.0 F 73 22 H 139/61 95 04/07/18 06:00 04/07/18 06:00 04/07/18 06:00 04/07/18 06:00 04/06/18 22:00 OUTPUTS 04/06/18 04/06/18 04/06/18 04/06/18 04/06/18 04/06/18 04/07/18 06:00 10:50 13:31 14:00 17:24 23:00 06:11 Left ROGE 90 80 60 40 50 75 Right ROGE 60 40 20 25 25 Kevin 1,100 900 600 800 CBC 04/07/18 05:30 Gen: nad ABD: obese habitus. midline incision open with few cynthia around umbilicus for approximation. Wound is clean. Deep fascia is intact. LLQ ostomy viable (pink/ protruding/producing). ROGE x2 on bulb suction (serosanginous) : kevin to gravity (> 30mL/hr) LE: SCDs bilat. soft. nt Problem List - Problems (1) Status post Anthony's procedure Assessment/Plan: POD #4 DC kevin and begin trial of void May begin clear liquid diet and advance as tolerated. Pain management OOB PT Incentive spirometer Monitor H/H CBC, BMP in AM Can downgrade to floor at ICU discretion Above discussed with Dr. Parada and agrees. Code(s): Z93.3 - COLOSTOMY STATUS
--- NOTE | 2018-04-07 07:47 | PN ---
Physical Exam: SUBJECTIVE: Patient seen and examined at bed side , no acute events sitting in chair , answer my questions , AAOx2 denies nay fever, chills, N/V/D/C some stool liquid in the colostomy bag , incentive spirometry Q 1 hr cont abx zosyn flagyl transfer to regular floor DC kevin Advance diet to clear liquid OBJECTIVE: Vital Signs Period Temp Pulse Resp BP Sys/Andrews Pulse Ox Last 24 Hr 98.2 F-99.0 F 58-82 16-22 126-154/43-69 95-98 General: Awake, alert Head: No signs of trauma Eyes: EOMI, sclera anicteric ENT: Dry mucus membranes Neck: Normal ROM, supple Lungs: Scattered rhonchi Cardio: Regular rhythm, S1 and S2 present Abdomen: Soft, ROGE drain present with serous output, ostomy with serous stool liquid Extremities: Normal range of motion, Distal pulses present SKIN: Warm, Dry, normal turgor Neurologic: Cranial nerves II through XII grossly intact Laboratory Results - last 24 hr 04/02/18 04/05/18 04/07/18 10:40 08:35 05:30 WBC 12.6 H RBC 2.86 L Hgb 8.5 L Hct 23.8 L MCV 83.1 MCH 29.8 MCHC 35.9 RDW 17.2 H Plt Count 320 MPV 7.1 L Absolute Neuts (auto) 10.2 H Neutrophils % 80.7 Lymphocytes % 12.6 D Monocytes % 6.0 Eosinophils % 0.6 D Basophils % 0.1 Nucleated RBC % 2 H Stool Occult Blood Positive Blood Type A NEGATIVE Antibody Screen Negative Crossmatch See Detail Crossmatch IS Only See Detail Active Medications Generic Name Dose Route Start Last Admin Trade Name Freq PRN Reason Stop Dose Admin Acetaminophen 1,000 mg 04/06/18 22:10 Ofirmev Injection - IVPB Q8H PRN PAIN LEVEL 6-10 Albuterol Sulfate 1 amp 04/06/18 22:10 Ventolin 0.083% Nebulizer Soln - NEB Q6H PRN SHORT OF BREATH/WHEEZING Albuterol/Ipratropium 1 amp 04/06/18 22:10 Duoneb - NEB Q4H PRN SHORTNESS OF BREATH Chlorhexidine Gluconate 1 applic 04/07/18 22:00 Hibiclens For Decolonization - TP HS MARY JANE Heparin Sodium (Porcine) 5,000 unit 04/07/18 06:00 04/07/18 06:17 Heparin - SQ 5,000 unit TID MARY JANE Administration Dextrose 1,000 mls @ 100 mls/hr 04/06/18 22:10 04/07/18 01:10 D5w - IV 100 mls/hr ASDIR MARY JANE Administration Metronidazole 500 mg in 100 mls @ 100 mls/hr 04/07/18 02:00 04/07/18 01:10 Flagyl 500mg Premixed Ivpb - IVPB 100 mls/hr Q8H-IV MARY JANE Administration Piperacillin Sod/Tazobactam 50 mls @ 100 mls/hr 04/07/18 03:00 04/07/18 02:21 Sod 2.25 gm/ Dextrose IVPB 100 mls/hr Q6H-IV MARY JANE Administration Protocol Levothyroxine Sodium 18.75 mcg 04/07/18 10:00 Synthroid Injection - IVPUSH DAILY MARY JANE Metoprolol Succinate 25 mg 04/07/18 10:00 Toprol Xl - PO DAILY MARY JANE Metoprolol Tartrate 5 mg 04/06/18 22:10 Lopressor Injection - IVPUSH Q4H PRN HYPERTENSION Morphine Sulfate 4 mg 04/06/18 22:10 Morphine Sulfate IVPUSH Q4H PRN PAIN LEVEL 6-10 Mupirocin 1 applic 04/07/18 10:00 Bactroban Ointment (For Decolonization) - NS 04/09/18 21:59 BID MARY JANE Nystatin 1 applic 04/07/18 10:00 Nystop Powder - TP DAILY [facility] Pantoprazole Sodium 40 mg 04/07/18 10:00 Protonix Iv IVPUSH DAILY [facility] Saliva Substitute 1 applic 04/07/18 02:05 04/07/18 02:21 Mouthkote Solution - MM 1 applic DAILY MARY JANE Administration CBC, BMP 04/07/18 05:30 04/07/18 05:30 ASSESSMENT/PLAN: 77yo with PMH of HTN, HLD, hypothyroidism, GERD, anxiety, found to have perforated diverticuli s/p ex-lap, adhesiolysis, drainage of abscesses, irrigation, Anthony's procedure, POD#3. Extubated after spontaneous breathing trial 04/05/18. #NEURO AAOx S/P extubation, off sedation Head CT negative for acute pathology x 2 - Folic acid , B12 , TSH for reversible causes of dementia #CV Anemia - stable no current active bleeding -Hgb=8.5 today -Transfused total of 3 units PRBC 04/05/18 -FOBT positive Hypotension due to sepsis, resolved - off pressors on 04/05/18 -History of HTN, HLD -hold home meds until tolerating po PULM Acute Respiratory Failure, resolved -Extubated, sat 99 %on RA GI POD#4 -Monitor bowel/ostomy function -Surgery following - clear liquids and advance as tolerated - out of bed Bowel regimne ID Septic Shock , resolved -Continue Zosyn/Flagyl -ID following ENDO Hypothyroidism -giving home synthroid IV RENAL MARKIE Improving metabolic acidosis and kidney function BUN/Cr= 94/2.8....62/2.2 (down from 125/3.7) Hypernatremia, giving D5W@ 100 cc/hr -Avoid a change >10 in 24 hours -Renal following FEN Giving D5W at 100cc/hr for hypernatremia Follow electrolytes, replete as needed -Hyperphosphatemia: will need phosphate binder when able to tolerate PO -Hypokalemia, repleted -Hypomagnesesmia replenished - clear liquid and advance as tolerated PPX VTE: Heparin GI: PPI #Disposition: Patient safe for transfer to the floor pending repeat head CT without acute pathology Visit type - Emergency Visit Emergency Visit: Yes ED Registration Date: 04/03/18 Care time: The patient presented to the Emergency Department on the above date and was hospitalized for further evaluation of their emergent condition. - New Patient This patient is new to me today: No - Critical Care Critical Care patient: Yes Total Critical Care Time (in minutes): 45 Critical Care Statement: The care of this patient involved high complexity decision making to prevent further life threatening deterioration of the patient 's condition and/or to evaluate & treat vital organ system(s) failure or risk of failure.
[2018-04-07 08:47] LABS: ALBUMIN 1.4 g/dl (3.4-5.0); ALK PHOS 44 U/L (45-117); ANION GAP 7 MMOL/L (8-16); BILIRUBIN,TOTAL 0.9 mg/dL (0.2-1); BLOOD UREA NITROGEN 62 mg/dL (7-18); CHLORIDE 125 mmol/L (98-107); CO2 24 mmol/L (21-32); CREATININE 2.2 mg/dL (0.55-1.3); GLUCOSE,RANDOM 123 mg/dL (74-106); MAGNESIUM 1.5 mg/dL (1.8-2.4); PHOSPHOROUS 3.2 mg/dL (2.5-4.9); POTASSIUM 3.1 mmol/L (3.5-5.1); SGOT/AST 44 U/L (15-37); SGPT/ALT 28 U/L (13-61); SODIUM 156 mmol/L (136-145); TOT PROT 5.2 g/dl (6.4-8.2)
[2018-04-07] MEDS ORDERED: MAGNESIUM SULF 50% (8.12 MEQ/2 ML-1 GM VIAL) IVPB ONE (09:22)
[2018-04-07] MEDS ORDERED: PANTOPRAZOLE SODIUM 40 MG VIAL IVPUSH SCH (10:00)
[2018-04-07] MEDS ORDERED: metoPROLOL SUCCINATE 25 MG TAB.SR.24H (FP) PO SCH (10:00)
[2018-04-07] MEDS ORDERED: MUPIROCIN 2% TOPICAL OINTMENT FOR DECOLONIZATION NS SCH (10:00)
[2018-04-07] MEDS ORDERED: LEVOTHYROXINE SODIUM 100 MCG VIAL IVPUSH SCH (10:00)
[2018-04-07] MEDS ORDERED: NYSTATIN POWDER 100,000 UNITS/GM - 15 GM TOPICAL POWDER TP SCH (10:00)
[2018-04-07] MEDS: KCL 10 MEQ IVPB 10 MEQ/100 ML INFUS.BAG IVPB SCH ×2 (10:38→11:50)
[2018-04-07] MEDS ORDERED: POTASSIUM CHLORIDE TABS 20 MEQ TABLET.ER (FP) PO ONE (11:45)
--- NOTE | 2018-04-07 12:01 | PN ---
Teaching Attending Note Name of Resident: Ronn Edward ATTENDING PHYSICIAN STATEMENT I saw and evaluated the patient. I reviewed the resident's note and discussed the case with the resident. I agree with the resident's findings and plan as documented. SUBJECTIVE: Pt seen and examined in the ICU. Mental status continues to improve. Denies abdominal pain. Started on PO. OBJECTIVE: Vital Signs Period Temp Pulse Resp BP Sys/Andrews Pulse Ox Last 24 Hr 98.2 F-99.0 F 58-81 18-22 123-154/43-69 95-97 Intake & Output 04/04/18 04/05/18 04/06/18 04/07/18 23:59 23:59 23:59 23:59 Intake Total 3148 3065 2666 1285 Output Total 2100 3872 3065 900 Balance 1048 -807 -399 385 Weight 88.451 kg 90.945 kg 88.649 kg 87.271 kg Gen: NAD at rest Heart: RRR Lung: decreased breath sounds at the bases Abd: soft, nontender, +ostomy pink, +ROGE serosanguinous Ext: no edema CBC, BMP 04/07/18 05:30 04/07/18 05:30 Active Medications Acetaminophen (Ofirmev Injection -) 1,000 mg IVPB Q8H PRN PRN Reason: PAIN LEVEL 6-10 Albuterol Sulfate (Ventolin 0.083% Nebulizer Soln -) 1 amp NEB Q6H PRN PRN Reason: SHORT OF BREATH/WHEEZING Chlorhexidine Gluconate (Hibiclens For Decolonization -) 1 applic TP HS MARY JANE Heparin Sodium (Porcine) (Heparin -) 5,000 unit SQ TID MARY JANE Last Admin: 04/07/18 06:17 Dose: 5,000 unit Dextrose (D5w -) 1,000 mls @ 100 mls/hr IV ASDIR MARY JANE Last Admin: 04/07/18 01:10 Dose: 100 mls/hr Metronidazole (Flagyl 500mg Premixed Ivpb -) 500 mg in 100 mls @ 100 mls/hr IVPB Q8H-IV MARY JANE Last Admin: 04/07/18 09:08 Dose: 100 mls/hr Piperacillin Sod/Tazobactam (Sod 2.25 gm/ Dextrose) 50 mls @ 100 mls/hr IVPB Q6H-IV MARY JANE; Protocol Last Admin: 04/07/18 08:26 Dose: 100 mls/hr Levothyroxine Sodium (Synthroid Injection -) 18.75 mcg IVPUSH DAILY [facility] Last Admin: 04/07/18 10:39 Dose: 18.75 mcg Metoprolol Succinate (Toprol Xl -) 25 mg PO DAILY [facility] Last Admin: 04/07/18 09:07 Dose: 25 mg Metoprolol Tartrate (Lopressor Injection -) 5 mg IVPUSH Q4H PRN PRN Reason: HYPERTENSION Morphine Sulfate (Morphine Sulfate) 4 mg IVPUSH Q4H PRN PRN Reason: PAIN LEVEL 6-10 Last Admin: 04/07/18 09:00 Dose: 4 mg Mupirocin (Bactroban Ointment (For Decolonization) -) 1 applic NS BID [facility] Stop: 04/09/18 21:59 Last Admin: 04/07/18 09:09 Dose: 1 applic Nystatin (Nystop Powder -) 1 applic TP DAILY [facility] Last Admin: 04/07/18 09:10 Dose: 1 applic Pantoprazole Sodium (Protonix Iv) 40 mg IVPUSH DAILY [facility] Last Admin: 04/07/18 11:00 Dose: 40 mg Saliva Substitute (Mouthkote Solution -) 1 applic MM DAILY [facility] Last Admin: 04/07/18 10:38 Dose: 1 applic ASSESSMENT AND PLAN: Perforated Diverticulitis/Intra-abdominal Abscesses s/p ex-lap/SOPHIE/Bess's Procedure/Abdominal Washout Septic Shock resolving s/p Acute Hypoxic Respiratory Failure Metabolic Acidosis Acute Kidney Injury CAD s/p CABG HTN Hyperlipidemia Anemia - continue antibiotics - monitor fever curve, WBC trend - monitoring off pressors, maintain MAP >65 - hypotonic IVF - replete lytes - monitor urine output, creatinine - monitor H/H - pain control - PO as tolerated - DVT/GI prophylaxis - can monitor on floor
--- NOTE | 2018-04-07 13:01 | PN ---
Progress Note (short form) - Note Progress Note: s/p ex lap andHartman's procedure- perforated diverticulitis, perforated sigmoid colon, multiple abscesses-04/03/18 Vital Signs Vital Signs Period Temp Pulse Resp BP Sys/Andrews Pulse Ox Last 24 Hr 98.2 F-99.0 F 58-81 18-22 123-154/43-69 95-97 cor-rrr lungs decreased bs at bases abd soft,nt +ROGE drains, +ostomy ext no edema CBC, BMP 04/07/18 05:30 04/07/18 05:30 Microbiology 04/03/18 13:05 Peritoneal Fluid Gram Stain - Final 04/03/18 13:05 Peritoneal Fluid Body Fluid Culture - Preliminary Escherichia Coli#2 Beta Hem Streptococcus Group F Pending Organism#2 04/03/18 13:05 Peritoneal Fluid Anaerobic Culture - Final Bacteroides Fragilis 04/02/18 22:30 Blood - Peripheral Venous Blood Culture - Preliminary NO GROWTH OBTAINED AFTER 96 HOURS, INCUBATION TO CONTINUE FOR 1 DAYS. 04/02/18 22:25 Blood - Peripheral Venous Blood Culture - Preliminary NO GROWTH OBTAINED AFTER 96 HOURS, INCUBATION TO CONTINUE FOR 1 DAYS. 04/02/18 23:05 Urine - Urine - Catheterized Urine Culture - Final NO GROWTH OBTAINED imp/reccd s/p drainage of intrabdominal aabscess- s/p ex lap and Hartmans procedure- perforated diverticulitis(surgery 04/03) Acute renal failure-improved metabolic acidosis resolved anemia continue zosyn/flagyl f/u operative cultures clinicallly improving Problem List - Problems (1) Intra-abdominal abscess Code(s): K65.1 - PERITONEAL ABSCESS (2) Acute kidney failure Code(s): N17.9 - ACUTE KIDNEY FAILURE, UNSPECIFIED
--- NOTE | 2018-04-07 13:55 | PN ---
Progress Note, Physician History of Present Illness: Pt seen and examined at bedside. She is tolerating diet. She denies shortness of breath. - Current Medication List Current Medications: Active Medications Acetaminophen (Ofirmev Injection -) 1,000 mg IVPB Q8H PRN PRN Reason: PAIN LEVEL 6-10 Albuterol Sulfate (Ventolin 0.083% Nebulizer Soln -) 1 amp NEB Q6H PRN PRN Reason: SHORT OF BREATH/WHEEZING Chlorhexidine Gluconate (Hibiclens For Decolonization -) 1 applic TP HS MARY JANE Heparin Sodium (Porcine) (Heparin -) 5,000 unit SQ TID [facility] Last Admin: 04/07/18 06:17 Dose: 5,000 unit Dextrose (D5w -) 1,000 mls @ 100 mls/hr IV ASDIR [facility] Last Admin: 04/07/18 01:10 Dose: 100 mls/hr Metronidazole (Flagyl 500mg Premixed Ivpb -) 500 mg in 100 mls @ 100 mls/hr IVPB Q8H-IV [facility] Last Admin: 04/07/18 09:08 Dose: 100 mls/hr Piperacillin Sod/Tazobactam (Sod 2.25 gm/ Dextrose) 50 mls @ 100 mls/hr IVPB Q6H-IV MARY JANE; Protocol Last Admin: 04/07/18 08:26 Dose: 100 mls/hr Levothyroxine Sodium (Synthroid Injection -) 18.75 mcg IVPUSH DAILY [facility] Last Admin: 04/07/18 10:39 Dose: 18.75 mcg Metoprolol Succinate (Toprol Xl -) 25 mg PO DAILY [facility] Last Admin: 04/07/18 09:07 Dose: 25 mg Metoprolol Tartrate (Lopressor Injection -) 5 mg IVPUSH Q4H PRN PRN Reason: HYPERTENSION Morphine Sulfate (Morphine Sulfate) 4 mg IVPUSH Q4H PRN PRN Reason: PAIN LEVEL 6-10 Last Admin: 04/07/18 09:00 Dose: 4 mg Mupirocin (Bactroban Ointment (For Decolonization) -) 1 applic NS BID [facility] Stop: 04/09/18 21:59 Last Admin: 04/07/18 09:09 Dose: 1 applic Nystatin (Nystop Powder -) 1 applic TP DAILY [facility] Last Admin: 04/07/18 09:10 Dose: 1 applic Pantoprazole Sodium (Protonix Iv) 40 mg IVPUSH DAILY [facility] Last Admin: 04/07/18 11:00 Dose: 40 mg Saliva Substitute (Mouthkote Solution -) 1 applic MM DAILY MARY JANE Last Admin: 04/07/18 10:38 Dose: 1 applic - Objective Vital Signs: Vital Signs Temperature 98.2 F 04/07/18 10:00 Pulse Rate 78 04/07/18 12:00 Respiratory Rate 18 04/07/18 12:00 Blood Pressure 137/55 L 04/07/18 12:00 O2 Sat by Pulse Oximetry (%) 95 04/07/18 09:00 Constitutional: Yes: Calm Eyes: Yes: Conjunctiva Clear HENT: Yes: Atraumatic Cardiovascular: Yes: S1, S2 Respiratory: Yes: CTA Bilaterally Gastrointestinal: Yes: Other (dressing in place) Genitourinary: Yes: WNL Musculoskeletal: Yes: WNL Edema: No Neurological: Yes: Oriented Psychiatric: Yes: Oriented Labs: CBC, BMP 04/07/18 05:30 04/07/18 05:30 INR, PTT INR 1.51 (0.83-1.09) H 04/02/18 10:40 Problem List - Problems (1) Acute kidney failure Code(s): N17.9 - ACUTE KIDNEY FAILURE, UNSPECIFIED Assessment/Plan Current Medications Generic Name Dose Route Start Last Admin Trade Name Freq PRN Reason Stop Dose Admin Acetaminophen 1,000 mg 04/06/18 22:10 Ofirmev Injection - IVPB Q8H PRN PAIN LEVEL 6-10 Albuterol Sulfate 1 amp 04/06/18 22:10 Ventolin 0.083% Nebulizer Soln - NEB Q6H PRN SHORT OF BREATH/WHEEZING Chlorhexidine Gluconate 1 applic 04/07/18 22:00 Hibiclens For Decolonization - TP HS MARY JANE Heparin Sodium (Porcine) 5,000 unit 04/07/18 06:00 04/07/18 06:17 Heparin - SQ 5,000 unit TID MARY JANE Administration Dextrose 1,000 mls @ 100 mls/hr 04/06/18 22:10 04/07/18 01:10 D5w - IV 100 mls/hr ASDIR MARY JANE Administration Metronidazole 500 mg in 100 mls @ 100 mls/hr 04/07/18 02:00 04/07/18 09:08 Flagyl 500mg Premixed Ivpb - IVPB 100 mls/hr Q8H-IV MARY JANE Administration Piperacillin Sod/Tazobactam 50 mls @ 100 mls/hr 04/07/18 03:00 04/07/18 08:26 Sod 2.25 gm/ Dextrose IVPB 100 mls/hr Q6H-IV MARY JANE Administration Protocol Levothyroxine Sodium 18.75 mcg 04/07/18 10:00 04/07/18 10:39 Synthroid Injection - IVPUSH 18.75 mcg DAILY MARY JANE Administration Metoprolol Succinate 25 mg 04/07/18 10:00 04/07/18 09:07 Toprol Xl - PO 25 mg DAILY MARY JANE Administration Metoprolol Tartrate 5 mg 04/06/18 22:10 Lopressor Injection - IVPUSH Q4H PRN HYPERTENSION Morphine Sulfate 4 mg 04/06/18 22:10 04/07/18 09:00 Morphine Sulfate IVPUSH 4 mg Q4H PRN Administration PAIN LEVEL 6-10 Mupirocin 1 applic 04/07/18 10:00 04/07/18 09:09 Bactroban Ointment (For Decolonization) - NS 04/09/18 21:59 1 applic BID MARY JANE Administration Nystatin 1 applic 04/07/18 10:00 04/07/18 09:10 Nystop Powder - TP 1 applic DAILY MARY JANE Administration Pantoprazole Sodium 40 mg 04/07/18 10:00 04/07/18 11:00 Protonix Iv IVPUSH 40 mg DAILY MARY JANE Administration Saliva Substitute 1 applic 04/07/18 02:05 04/07/18 10:38 Mouthkote Solution - MM 1 applic DAILY MARY JANE Administration Impression 1. MARKIE 2. resp failure 3. sepsis 4. perforated diverticula 5. acidosis 6. s/p ex-lap/SOPHIE/Bess's Procedure/Abdominal Washout 7. CAD 8. HTN 9. Hyperlipidemia 10. Anemia 11. hypernatremia Plan - pt is now drinking, she had over a liter of water today - will decrease rate of d5w and add potassium to it - cont to monitor sodium - renal function improving - likely resolving ATN - replace potassium Dr Perdomo
[2018-04-07] MEDS: POTASSIUM CHLORIDE 10 MEQ in DEXTROSE 5%-WATER - 1,000 ML IVPB SCH (14:13)
[2018-04-07] MEDS ORDERED: ALBUTEROL SO4 0.083% IH SOL 2.5 MG/3 ML VIAL.NEB. NEB PRN (18:20)
[2018-04-07] MEDS ORDERED: METOPROLOL TARTRATE 5 MG/5 ML VIAL IVPUSH PRN (18:20)
[2018-04-07] MEDS ORDERED: CHLORHEXIDINE GLUCONATE 4% CLEANSER FOR DECOLONIZATION TP SCH (22:00)
--- NOTE | 2018-04-07 23:31 | PN ---
Progress Note, Physician History of Present Illness: Pt wants to eat - Current Medication List Current Medications: Active Medications Acetaminophen (Ofirmev Injection -) 1,000 mg IVPB Q8H PRN PRN Reason: PAIN LEVEL 6-10 Albuterol Sulfate (Ventolin 0.083% Nebulizer Soln -) 1 amp NEB Q6H PRN PRN Reason: SHORT OF BREATH/WHEEZING Heparin Sodium (Porcine) (Heparin -) 5,000 unit SQ TID MARY JANE Potassium Chloride 10 meq/ (Dextrose) 1,005 mls @ 83 mls/hr IVPB Q12H MARY JANE Last Admin: 04/07/18 14:13 Dose: 83 mls/hr Metronidazole (Flagyl 500mg Premixed Ivpb -) 500 mg in 100 mls @ 100 mls/hr IVPB Q8H-IV MARY JANE Piperacillin Sod/Tazobactam (Sod 2.25 gm/ Dextrose) 50 mls @ 100 mls/hr IVPB Q6H-IV MARY JANE; Protocol Levothyroxine Sodium (Synthroid Injection -) 18.75 mcg IVPUSH DAILY MARY JANE Metoprolol Succinate (Toprol Xl -) 25 mg PO DAILY MARY JANE Metoprolol Tartrate (Lopressor Injection -) 5 mg IVPUSH Q4H PRN PRN Reason: HYPERTENSION Morphine Sulfate (Morphine Sulfate) 4 mg IVPUSH Q4H PRN PRN Reason: PAIN LEVEL 6-10 Nystatin (Nystop Powder -) 1 applic TP DAILY MARY JANE Pantoprazole Sodium (Protonix Iv) 40 mg IVPUSH DAILY MARY JANE Saliva Substitute (Mouthkote Solution -) 1 applic MM DAILY MARY JANE - Objective Vital Signs: Vital Signs Temperature 98 F 04/07/18 20:36 Pulse Rate 66 04/07/18 20:36 Respiratory Rate 20 04/07/18 20:36 Blood Pressure 142/69 04/07/18 20:36 O2 Sat by Pulse Oximetry (%) 95 04/07/18 09:00 Neck: Yes: WNL, Supple Cardiovascular: Yes: WNL, Regular Rate and Rhythm Respiratory: Yes: WNL, Regular, CTA Bilaterally Gastrointestinal: Yes: Other ((+) ostomy (+) ROGE drainage tubes) Labs: CBC, BMP 04/07/18 05:30 04/07/18 05:30 INR, PTT INR 1.51 (0.83-1.09) H 04/02/18 10:40 Problem List - Problems (1) Intra-abdominal abscess Assessment/Plan: S/P exp lap/lysis of adhesions/drainage of abscesses/Anthony's procedure/ colostomy Cont IVF Cont IV zosyn/flagyl Diet advanced to clear liquids and tolerating Code(s): K65.1 - PERITONEAL ABSCESS (2) Septic shock Assessment/Plan: Cont IV zosyn/flagyl Pt is off pressors Wound culture(+) for nonlactose fermenting Gnb BC remain negative Code(s): A41.9 - SEPSIS, UNSPECIFIED ORGANISM; R65.21 - SEVERE SEPSIS WITH SEPTIC SHOCK (3) Acute kidney failure Assessment/Plan: Cont IVF Monitor labs Improving Code(s): N17.9 - ACUTE KIDNEY FAILURE, UNSPECIFIED (4) Altered mental state Assessment/Plan: Due to infectious encephalopathy/sepsis Code(s): R41.82 - ALTERED MENTAL STATUS, UNSPECIFIED (5) Anemia Assessment/Plan: Monitor H/H Pt transfused 1 unit PRBC's Code(s): D64.9 - ANEMIA, UNSPECIFIED (6) Depression with anxiety Code(s): F41.8 - OTHER SPECIFIED ANXIETY DISORDERS (7) HLD (hyperlipidemia) Code(s): E78.5 - HYPERLIPIDEMIA, UNSPECIFIED (8) HTN (hypertension) Assessment/Plan: Cont metoprolol Code(s): I10 - ESSENTIAL (PRIMARY) HYPERTENSION Qualifiers: Hypertension type: essential hypertension Qualified Code(s): I10 - Essential (primary) hypertension (9) Hypothyroidism Assessment/Plan: Cont IV levothyroxine Code(s): E03.9 - HYPOTHYROIDISM, UNSPECIFIED Qualifiers: Hypothyroidism type: acquired Qualified Code(s): E03.9 - Hypothyroidism, unspecified (10) Acute respiratory failure Assessment/Plan: Resolved Cont nebulizers Code(s): J96.00 - ACUTE RESPIRATORY FAILURE, UNSP W HYPOXIA OR HYPERCAPNIA
[2018-04-08] MEDS: morphine SULFATE 4 MG/ML VIAL IVPUSH PRN ×2 (00:04→21:48)
[2018-04-08] MEDS ORDERED: PIPERACILLIN/TAZOBACTAM 2.25 GM VIAL IVPB ONE ×4 (02:10→20:34)
[2018-04-08] MEDS ORDERED: DEXTROSE 5%-WATER - 50 ML IVPB ONE ×4 (02:10→20:34)
[2018-04-08] MEDS: PIPERACILLIN/TAZOB 2.25 GM 2.25 GM in DEXTROSE 5%-WATER - 50 ML IVPB SCH ×4 (03:37→21:34)
[2018-04-08] MEDS: HEPARIN NA (PORCINE) 5,000 UNITS/ML 1ML VIAL SQ SCH ×3 (05:23→21:35)
[2018-04-08] MEDS: POTASSIUM CHLORIDE 10 MEQ in DEXTROSE 5%-WATER - 1,000 ML IVPB SCH ×2 (07:33→14:50)
[2018-04-08 07:53] LABS: BASO % 0.1 % (0-2.0); EOS % 0.6 % (0-4.5); HEMATOCRIT 27.2 % (32.4-45.2); HEMOGLOBIN 9.2 GM/dL (10.7-15.3); LYMPH % 11.8 % (8-40); MEAN CELL VOLUME 85.3 fl (80-96); MEAN PLT VOLUME 7.3 fl (7.5-11.1); MONO % 4.9 % (3.8-10.2); NEUT % 82.6 % (42.8-82.8); PLATELET COUNT 327 K/MM3 (134-434); RBC 3.18 M/mm3 (3.60-5.2); RDW 17.4 % (11.6-15.6); WHITE BLOOD COUNT 13.7 K/mm3 (4.0-10.0)
[2018-04-08 08:52] LABS: ALBUMIN 1.5 g/dl (3.4-5.0); ALK PHOS 56 U/L (45-117); ANION GAP 9 MMOL/L (8-16); BILIRUBIN,TOTAL 1.1 mg/dL (0.2-1); BLOOD UREA NITROGEN 40 mg/dL (7-18); CHLORIDE 118 mmol/L (98-107); CO2 23 mmol/L (21-32); CREATININE 1.7 mg/dL (0.55-1.3); GLUCOSE,RANDOM 126 mg/dL (74-106); MAGNESIUM 1.8 mg/dL (1.8-2.4); PHOSPHOROUS 3.6 mg/dL (2.5-4.9); POTASSIUM 3.5 mmol/L (3.5-5.1); SGOT/AST 38 U/L (15-37); SGPT/ALT 30 U/L (13-61); SODIUM 149 mmol/L (136-145); TOT PROT 5.6 g/dl (6.4-8.2)
[2018-04-08] MEDS ORDERED: LEVOTHYROXINE SODIUM 100 MCG VIAL IVPUSH SCH (10:00)
[2018-04-08] MEDS ORDERED: PANTOPRAZOLE SODIUM 40 MG VIAL IVPUSH SCH (10:00)
[2018-04-08] MEDS ORDERED: PT OWN MED DRAWER 7, Y5N ONE (10:29)
[2018-04-08] MEDS: metoPROLOL SUCCINATE 25 MG TAB.SR.24H (FP) PO SCH (10:34)
[2018-04-08] MEDS: LYTES/YERBA SANTA 240 ML BOTTLE MM SCH (10:40)
--- NOTE | 2018-04-08 13:12 | PN ---
Progress Note (short form) - Note Progress Note: 77yo F s/p Mi, seen and examined at bedside. Pt transferred to floor yesterday. Pt had kevin removed and was unable to void was straight cath twice yesterday, continue to have difficulty with voiding. Otherwise, pt denies n/v, fever, chills. Pt currently on clears which she is tolerating well and wishes to have some food. Pt passing stool and gas from colostomy. Last Vital Signs Temp Pulse Resp BP Pulse Ox 98.4 F 86 20 152/73 95 04/08/18 04:47 04/08/18 04:47 04/08/18 04:47 04/08/18 04:47 04/07/18 21:00 CBC, BMP 04/08/18 06:30 04/08/18 06:30 PE: Gen: A&O X3 Resp: breathing comfortably Abd: soft, nondistended, mild diffuse abd tenderness, ostomy has stool and gas present. Incision clean with no erythema or discharge. Drains in place with serosanguinous drainage Lt: 60ml Rt: 15ml Problem List - Problems (1) Perforated bowel Assessment/Plan: Plan -replace kevin as pt failed TOV -adv diet -oob/ambulate -DVT ppx Code(s): K63.1 - PERFORATION OF INTESTINE (NONTRAUMATIC)
--- NOTE | 2018-04-08 14:03 | PN ---
Progress Note, Physician History of Present Illness: Pt seen and examined at bedside. She is now in the medical [facility]. She is tolerating diet. Her blood pressure stabilized. - Current Medication List Current Medications: Active Medications Acetaminophen (Ofirmev Injection -) 1,000 mg IVPB Q8H PRN PRN Reason: PAIN LEVEL 6-10 Albuterol Sulfate (Ventolin 0.083% Nebulizer Soln -) 1 amp NEB Q6H PRN PRN Reason: SHORT OF BREATH/WHEEZING Heparin Sodium (Porcine) (Heparin -) 5,000 unit SQ TID [facility] Last Admin: 04/08/18 05:23 Dose: 5,000 unit Potassium Chloride 10 meq/ (Dextrose) 1,005 mls @ 83 mls/hr IVPB Q12H [facility] Last Admin: 04/08/18 07:33 Dose: Not Given Metronidazole (Flagyl 500mg Premixed Ivpb -) 500 mg in 100 mls @ 100 mls/hr IVPB Q8H-IV [facility] Last Admin: 04/08/18 10:34 Dose: 100 mls/hr Piperacillin Sod/Tazobactam (Sod 2.25 gm/ Dextrose) 50 mls @ 100 mls/hr IVPB Q6H-IV [facility]ARY [facility]ANE; Protocol Last Admin: 04/08/18 09:53 Dose: 100 mls/hr Levothyroxine Sodium (Synthroid Injection -) 18.75 mcg IVPUSH DAILY [facility] Last Admin: 04/08/18 10:33 Dose: 18.75 mcg Metoprolol Succinate (Toprol Xl -) 25 mg PO DAILY [facility] Last Admin: 04/08/18 10:34 Dose: 25 mg Metoprolol Tartrate (Lopressor Injection -) 5 mg IVPUSH Q4H PRN PRN Reason: HYPERTENSION Morphine Sulfate (Morphine Sulfate) 4 mg IVPUSH Q4H PRN PRN Reason: PAIN LEVEL 6-10 Last Admin: 04/08/18 00:04 Dose: 4 mg Nystatin (Nystop Powder -) 1 applic TP DAILY [facility] Pantoprazole Sodium (Protonix Iv) 40 mg IVPUSH DAILY [facility] Last Admin: 04/08/18 10:33 Dose: 40 mg Saliva Substitute (Mouthkote Solution -) 1 applic MM DAILY [facility] Last Admin: 04/08/18 10:40 Dose: Not Given - Objective Vital Signs: Vital Signs Temperature 98.9 F 04/08/18 10:00 Pulse Rate 89 04/08/18 10:00 Respiratory Rate 20 04/08/18 10:00 Blood Pressure 181/90 H 04/08/18 10:00 O2 Sat by Pulse Oximetry (%) 95 04/07/18 21:00 Constitutional: Yes: Calm Eyes: Yes: Conjunctiva Clear HENT: Yes: Atraumatic Cardiovascular: Yes: S1, S2 Respiratory: Yes: CTA Bilaterally Gastrointestinal: Yes: Other (dressing in place) Genitourinary: Yes: WNL Musculoskeletal: Yes: WNL Edema: No Neurological: Yes: Oriented Psychiatric: Yes: Oriented Labs: CBC, BMP 04/08/18 06:30 04/08/18 06:30 INR, PTT INR 1.51 (0.83-1.09) H 04/02/18 10:40 Problem List - Problems (1) Acute kidney failure Code(s): N17.9 - ACUTE KIDNEY FAILURE, UNSPECIFIED Assessment/Plan Current Medications Generic Name Dose Route Start Last Admin Trade Name Freq PRN Reason Stop Dose Admin Acetaminophen 1,000 mg 04/07/18 18:20 Ofirmev Injection - IVPB Q8H PRN PAIN LEVEL 6-10 Albuterol Sulfate 1 amp 04/07/18 18:20 Ventolin 0.083% Nebulizer Soln - NEB Q6H PRN SHORT OF BREATH/WHEEZING Heparin Sodium (Porcine) 5,000 unit 04/07/18 22:00 04/08/18 05:23 Heparin - SQ 5,000 unit TID MARY JANE Administration Potassium Chloride 10 meq/ 1,005 mls @ 83 mls/hr 04/07/18 13:56 04/08/18 07: 33 Dextrose IVPB Not Given Q12H [facility]ANE Metronidazole 500 mg in 100 mls @ 100 mls/hr 04/08/18 02:00 04/08/18 10:34 Flagyl 500mg Premixed Ivpb - IVPB 100 mls/hr Q8H-IV [facility]ANE Administration Piperacillin Sod/Tazobactam 50 mls @ 100 mls/hr 04/07/18 21:00 04/08/18 09:53 Sod 2.25 gm/ Dextrose IVPB 100 mls/hr Q6H-IV [facility] Administration Protocol Levothyroxine Sodium 18.75 mcg 04/08/18 10:00 04/08/18 10:33 Synthroid Injection - IVPUSH 18.75 mcg DAILY [facility] Administration Metoprolol Succinate 25 mg 04/08/18 10:00 04/08/18 10:34 Toprol Xl - PO 25 mg DAILY [facility] Administration Metoprolol Tartrate 5 mg 04/07/18 18:20 Lopressor Injection - IVPUSH Q4H PRN HYPERTENSION Morphine Sulfate 4 mg 04/07/18 18:20 04/08/18 00:04 Morphine Sulfate IVPUSH 4 mg Q4H PRN Administration PAIN LEVEL 6-10 Nystatin 1 applic 04/08/18 10:00 Nystop Powder - TP DAILY [facility] Pantoprazole Sodium 40 mg 04/08/18 10:00 04/08/18 10:33 Protonix Iv IVPUSH 40 mg DAILY [facility] Administration Saliva Substitute 1 applic 04/08/18 10:00 04/08/18 10:40 Mouthkote Solution - MM Not Given DAILY MARY JANE Impression 1. MARKIE 2. resp failure 3. sepsis 4. perforated diverticula 5. acidosis 6. s/p ex-lap/SOPHIE/Bess's Procedure/Abdominal Washout 7. CAD 8. HTN 9. Hyperlipidemia 10. Anemia 11. hypernatremia Plan - sodium is improving - cont with d5w - pt tolerating po fluids - replace potassium - likely resolving ATN - discussed with family Dr Perdomo
[2018-04-08] MEDS ORDERED: POTASSIUM CHLORIDE TABS 20 MEQ TABLET.ER (FP) PO ONE (14:15)
[2018-04-08] MEDS: NYSTATIN POWDER 100,000 UNITS/GM - 15 GM TOPICAL POWDER TP SCH (15:00)
--- NOTE | 2018-04-08 23:24 | PN ---
Progress Note, Physician History of Present Illness: Pt tolerating diet - Current Medication List Current Medications: Active Medications Acetaminophen (Ofirmev Injection -) 1,000 mg IVPB Q8H PRN PRN Reason: PAIN LEVEL 6-10 Albuterol Sulfate (Ventolin 0.083% Nebulizer Soln -) 1 amp NEB Q6H PRN PRN Reason: SHORT OF BREATH/WHEEZING Heparin Sodium (Porcine) (Heparin -) 5,000 unit SQ TID [facility] Last Admin: 04/08/18 21:35 Dose: 5,000 unit Potassium Chloride 10 meq/ (Dextrose) 1,005 mls @ 83 mls/hr IVPB Q12H [facility] Last Admin: 04/08/18 14:50 Dose: Not Given Metronidazole (Flagyl 500mg Premixed Ivpb -) 500 mg in 100 mls @ 100 mls/hr IVPB Q8H-IV [facility] Last Admin: 04/08/18 18:26 Dose: 100 mls/hr Piperacillin Sod/Tazobactam (Sod 2.25 gm/ Dextrose) 50 mls @ 100 mls/hr IVPB Q6H-IV [facility]; Protocol Last Admin: 04/08/18 21:34 Dose: 100 mls/hr Levothyroxine Sodium (Synthroid Injection -) 18.75 mcg IVPUSH DAILY [facility] Last Admin: 04/08/18 10:33 Dose: 18.75 mcg Metoprolol Succinate (Toprol Xl -) 25 mg PO DAILY [facility] Last Admin: 04/08/18 10:34 Dose: 25 mg Metoprolol Tartrate (Lopressor Injection -) 5 mg IVPUSH Q4H PRN PRN Reason: HYPERTENSION Morphine Sulfate (Morphine Sulfate) 4 mg IVPUSH Q4H PRN PRN Reason: PAIN LEVEL 6-10 Last Admin: 04/08/18 21:48 Dose: 4 mg Nystatin (Nystop Powder -) 1 applic TP DAILY [facility] Last Admin: 04/08/18 15:00 Dose: 1 applic Pantoprazole Sodium (Protonix Iv) 40 mg IVPUSH DAILY [facility] Last Admin: 04/08/18 10:33 Dose: 40 mg Saliva Substitute (Mouthkote Solution -) 1 applic MM DAILY [facility] Last Admin: 04/08/18 10:40 Dose: Not Given - Objective Vital Signs: Vital Signs Temperature 98.5 F 02/07/19 14:47 Pulse Rate 78 04/08/18 14:47 Respiratory Rate 18 04/08/18 14:47 Blood Pressure 128/73 04/08/18 14:47 O2 Sat by Pulse Oximetry (%) 98 04/08/18 09:00 Neck: Yes: WNL, Supple Cardiovascular: Yes: WNL, Regular Rate and Rhythm Respiratory: Yes: WNL, Regular, CTA Bilaterally Gastrointestinal: Yes: Other ((+) ostomy (+) ROGE drainage tubes) Labs: CBC, BMP 04/08/18 06:30 04/08/18 06:30 INR, PTT INR 1.51 (0.83-1.09) H 04/02/18 10:40 Problem List - Problems (1) Intra-abdominal abscess Assessment/Plan: S/P exp lap/lysis of adhesions/drainage of abscesses/Anthony's procedure/ colostomy Cont IVF Cont IV zosyn/flagyl Code(s): K65.1 - PERITONEAL ABSCESS (2) Septic shock Assessment/Plan: Cont IV zosyn/flagyl Pt is off pressors Wound culture(+) for nonlactose fermenting Gnb BC remain negative Code(s): A41.9 - SEPSIS, UNSPECIFIED ORGANISM; R65.21 - SEVERE SEPSIS WITH SEPTIC SHOCK (3) Acute kidney failure Assessment/Plan: Cont IVF Monitor labs Improving Code(s): N17.9 - ACUTE KIDNEY FAILURE, UNSPECIFIED (4) Altered mental state Assessment/Plan: Due to infectious encephalopathy/sepsis Code(s): R41.82 - ALTERED MENTAL STATUS, UNSPECIFIED (5) Anemia Code(s): D64.9 - ANEMIA, UNSPECIFIED (6) Depression with anxiety Code(s): F41.8 - OTHER SPECIFIED ANXIETY DISORDERS (7) HLD (hyperlipidemia) Code(s): E78.5 - HYPERLIPIDEMIA, UNSPECIFIED (8) HTN (hypertension) Code(s): I10 - ESSENTIAL (PRIMARY) HYPERTENSION Qualifiers: Hypertension type: essential hypertension Qualified Code(s): I10 - Essential (primary) hypertension (9) Hypothyroidism Code(s): E03.9 - HYPOTHYROIDISM, UNSPECIFIED Qualifiers: Hypothyroidism type: acquired Qualified Code(s): E03.9 - Hypothyroidism, unspecified (10) Acute respiratory failure Code(s): J96.00 - ACUTE RESPIRATORY FAILURE, UNSP W HYPOXIA OR HYPERCAPNIA
[2018-04-09] MEDS ORDERED: PIPERACILLIN/TAZOBACTAM 2.25 GM VIAL IVPB ONE ×3 (02:05→14:43)
[2018-04-09] MEDS ORDERED: DEXTROSE 5%-WATER - 50 ML IVPB ONE ×2 (02:06→10:17)
[2018-04-09] MEDS: POTASSIUM CHLORIDE 10 MEQ in DEXTROSE 5%-WATER - 1,000 ML IVPB SCH ×2 (02:22→15:29)
[2018-04-09] MEDS: PIPERACILLIN/TAZOB 2.25 GM 2.25 GM in DEXTROSE 5%-WATER - 50 ML IVPB SCH ×3 (03:16→14:45)
[2018-04-09] MEDS: HEPARIN NA (PORCINE) 5,000 UNITS/ML 1ML VIAL SQ SCH ×3 (06:41→21:52)
[2018-04-09 07:34] LABS: BASO % 0.2 % (0-2.0); EOS % 0.8 % (0-4.5); HEMATOCRIT 25.1 % (32.4-45.2); HEMOGLOBIN 8.3 GM/dL (10.7-15.3); LYMPH % 12.7 % (8-40); MCH 28.9 pg (25.7-33.7); MCHC 33.3 g/dl (32.0-36.0); MEAN CELL VOLUME 86.7 fl (80-96); MEAN PLT VOLUME 7.6 fl (7.5-11.1); MONO % 5.3 % (3.8-10.2); PLATELET COUNT 266 K/MM3 (134-434); RBC 2.89 M/mm3 (3.60-5.2); WHITE BLOOD COUNT 11.9 K/mm3 (4.0-10.0)
[2018-04-09 08:14] LABS: ALBUMIN 1.3 g/dl (3.4-5.0); ALK PHOS 65 U/L (45-117); ANION GAP 6 MMOL/L (8-16); BILIRUBIN,TOTAL 0.9 mg/dL (0.2-1); BLOOD UREA NITROGEN 28 mg/dL (7-18); CHLORIDE 116 mmol/L (98-107); CO2 24 mmol/L (21-32); CREATININE 1.6 mg/dL (0.55-1.3); GLUCOSE,RANDOM 135 mg/dL (74-106); POTASSIUM 3.7 mmol/L (3.5-5.1); SGOT/AST 25 U/L (15-37); SGPT/ALT 19 U/L (13-61); SODIUM 146 mmol/L (136-145)
[2018-04-09 08:44] LABS: CALCIUM 6.4 mg/dL (8.5-10.1)
--- NOTE | 2018-04-09 09:24 | PN ---
Physical Exam: SUBJECTIVE: Patient seen and examined. She says she is hungry but otherwise has no complaints. OBJECTIVE: Vital Signs Period Temp Pulse Resp BP Sys/Andrews Pulse Ox Last 24 Hr 98.5 F-98.9 F 70-89 18-20 128-181/67-90 98 GENERAL: The patient is awake, alert, and fully oriented, in no acute distress. LUNGS: Breath sounds equal, clear to auscultation bilaterally, no wheezes, no crackles, no accessory muscle use. HEART: Regular rate and rhythm, S1, S2 without murmur, rub or gallop. ABDOMEN: Obese, soft, nontender, nondistended, normoactive bowel sounds, no guarding, no rebound, no hepatosplenomegaly, no masses. EXTREMITIES: 2+ pulses, warm, well-perfused, no edema. Laboratory Results - last 24 hr 04/05/18 04/08/18 04/09/18 07:00 06:30 06:00 WBC RBC Hgb Hct MCV MCH MCHC RDW Plt Count MPV Absolute Neuts (auto) Neutrophils % Lymphocytes % Monocytes % Eosinophils % Basophils % Nucleated RBC % Sodium 149 H 146 H Potassium 3.5 3.7 Chloride 118 H 116 H Carbon Dioxide 23 24 Anion Gap 9 6 L BUN 40 H 28 H Creatinine 1.7 H 1.6 H Creat Clearance w eGFR 29.30 31.42 Random Glucose 126 H 135 H Calcium 7.0 L 6.4 L* Phosphorus 3.6 Magnesium 1.8 Total Bilirubin 1.1 H 0.9 AST 38 H 25 ALT 30 19 Alkaline Phosphatase 56 65 Total Protein 5.6 L 5.0 L Albumin 1.5 L 1.3 L Blood Type A NEGATIVE Antibody Screen Negative Crossmatch See Detail 04/09/18 06:20 WBC 11.9 H RBC 2.89 L Hgb 8.3 L Hct 25.1 L MCV 86.7 MCH 28.9 MCHC 33.3 RDW 18.0 H Plt Count 266 MPV 7.6 Absolute Neuts (auto) 9.6 H Neutrophils % 81.0 Lymphocytes % 12.7 Monocytes % 5.3 Eosinophils % 0.8 Basophils % 0.2 Nucleated RBC % 0 Sodium Potassium Chloride Carbon Dioxide Anion Gap BUN Creatinine Creat Clearance w eGFR Random Glucose Calcium Phosphorus Magnesium Total Bilirubin AST ALT Alkaline Phosphatase Total Protein Albumin Blood Type Antibody Screen Crossmatch Active Medications Generic Name Dose Route Start Last Admin Trade Name Freq PRN Reason Stop Dose Admin Acetaminophen 1,000 mg 04/07/18 18:20 Ofirmev Injection - IVPB Q8H PRN PAIN LEVEL 6-10 Albuterol Sulfate 1 amp 04/07/18 18:20 Ventolin 0.083% Nebulizer Soln - NEB Q6H PRN SHORT OF BREATH/WHEEZING Heparin Sodium (Porcine) 5,000 unit 04/07/18 22:00 04/09/18 06:41 Heparin - SQ 5,000 unit TID [facility]ARY [facility]ANE Administration Potassium Chloride 10 meq/ 1,005 mls @ 83 mls/hr 04/07/18 13:56 04/09/18 02: 22 Dextrose IVPB 83 mls/hr Q12H [facility]ANE Administration Metronidazole 500 mg in 100 mls @ 100 mls/hr 04/08/18 02:00 04/09/18 02:23 Flagyl 500mg Premixed Ivpb - IVPB 100 mls/hr Q8H-IV [facility]ANE Administration Piperacillin Sod/Tazobactam 50 mls @ 100 mls/hr 04/07/18 21:00 04/09/18 03:16 Sod 2.25 gm/ Dextrose IVPB 100 mls/hr Q6H-IV [facility]ANE Administration Protocol Levothyroxine Sodium 18.75 mcg 04/08/18 10:00 04/08/18 10:33 Synthroid Injection - IVPUSH 18.75 mcg DAILY [facility] Administration Metoprolol Succinate 25 mg 04/08/18 10:00 04/08/18 10:34 Toprol Xl - PO 25 mg DAILY [facility] Administration Metoprolol Tartrate 5 mg 04/07/18 18:20 Lopressor Injection - IVPUSH Q4H PRN HYPERTENSION Morphine Sulfate 4 mg 04/07/18 18:20 04/08/18 21:48 Morphine Sulfate IVPUSH 4 mg Q4H PRN Administration PAIN LEVEL 6-10 Nystatin 1 applic 04/08/18 10:00 04/08/18 15:00 Nystop Powder - TP 1 applic DAILY [facility] Administration Pantoprazole Sodium 40 mg 04/08/18 10:00 04/08/18 10:33 Protonix Iv IVPUSH 40 mg DAILY [facility] Administration Saliva Substitute 1 applic 04/08/18 10:00 04/08/18 10:40 Mouthkote Solution - MM Not Given DAILY [facility]ANE ASSESSMENT/PLAN: This is a 77 year old woman with a history of CAD, CABG, HTN, hyperlipidemia, hypothyroidism, GERD, depression, anxiety who presented to the ED with lethargy , weakness, decreased oral intake, slurred speech. 1. Septic shock secondary to perforated diverticulitis with multiple abscesses, interloop abscesses, perforated sigmoid colon - s/p exploratory laparotomy, lysis of adhesions, Anthony procedure, drainage and irrigation of multiple abscesses on 04/03 - Peritoneal fluid culture growing E. coli, beta hemolytic Strep, Gemella, Bacteroides - Blood cultures negative - Continue Zosyn and Flagyl - Shock resolved 2. Acute kidney injury - Likely ATN secondary to septic shock - Improving - Continue IV fluid 3. Urinary retention - Maintain Clinton until more ambulatory 4. Hypernatremia - Improving with IV D5W 5. Hypokalemia - Improved 6. Hypocalcemia - Corrected calcium is 8.6 7. Hypomagnesemia - Improved 8. Acute respiratory failure - Resolved 9. Acute metabolic encephalopathy - Secondary to septic shock - Resolved 10. Anemia - Likely secondary to sepsis - Continue to monitor hemoglobin 11. Depression with anxiety - Restart Zoloft 12. Hyperlipidemia - Restart Lipitor 13. HTN - Continue Toprol XL - Benicar, HCTZ held secondary to MARKIE 14. Hypothyroidism - Continue Synthroid 15. CAD, history of CABG - Continue Toprol XL 16. GERD - Continue Protonix Visit type - Emergency Visit Emergency Visit: Yes ED Registration Date: 04/03/18 Care time: The patient presented to the Emergency Department on the above date and was hospitalized for further evaluation of their emergent condition. - New Patient This patient is new to me today: Yes Date on this admission: 04/09/18 - Critical Care Critical Care patient: No - Discharge Referral Referred to [facility] Med P.C[facility] No
[2018-04-09] MEDS ORDERED: PT OWN MED DRAWER 7, Y5N ONE (10:16)
[2018-04-09] MEDS: LYTES/YERBA SANTA 240 ML BOTTLE MM SCH (10:37)
--- NOTE | 2018-04-09 10:41 | PN ---
Progress Note (short form) - Note Progress Note: 77yo F s/p Bess procedure seen and examined at bedside. Pt denies fever, chills, n/v. Abd pain improved since kevin catheter was placed which had 1100ml urine after placement. Pt tolerating PO. Not ambulating much but did get OOB to chair. Last Vital Signs Temp Pulse Resp BP Pulse Ox 98.6 F 70 20 157/67 98 04/09/18 06:00 04/09/18 06:00 04/09/18 06:00 04/09/18 06:00 04/08/18 09:00 CBC, BMP 04/09/18 06:20 04/09/18 06:00 PE: Gen; a&O X3 Resp: breathing comfortably Abd: soft, nondistended, nontender, incision clean with good granulation tissue , drains in place with serosanguinous drainage. Colostomy shows stool and gas Problem List - Problems (1) Perforated bowel Assessment/Plan: Plan -would continue kevin catheter for now -emphasize OOB/ambulate -will consider removing drains later today Code(s): K63.1 - PERFORATION OF INTESTINE (NONTRAUMATIC)
[2018-04-09] MEDS: PANTOPRAZOLE 40 MG TABLET (FP) PO SCH (10:56)
[2018-04-09] MEDS: LEVOTHYROXINE NA 50 MCG TABLET (FP) PO SCH (10:56)
[2018-04-09] MEDS: SERTRALINE HCL 50 MG TABLET (FP) PO SCH (10:56)
[2018-04-09] MEDS: metoPROLOL SUCCINATE 25 MG TAB.SR.24H (FP) PO SCH (10:56)
[2018-04-09 12:56] VITALS: BMI 33.1
[2018-04-09] MEDS: NYSTATIN POWDER 100,000 UNITS/GM - 15 GM TOPICAL POWDER TP SCH (14:40)
--- NOTE | 2018-04-09 15:20 | PN ---
Progress Note (short form) - Note Progress Note: s/p ex lap andHartman's procedure- perforated diverticulitis, perforated sigmoid colon, multiple abscesses-04/03/18 oob in chair required kevin re-insertion for urinary retention Vital Signs Period Temp Pulse Resp BP Sys/Andrews Pulse Ox Last 24 Hr 98.6 F-98.9 F 70-88 20-20 145-157/67-69 cor-rrr lungs clear abd soft,nt +drain, +ostomy +dressing intact ext no edema CBC, BMP 04/09/18 06:20 04/09/18 06:00 Microbiology 04/02/18 22:30 Blood - Peripheral Venous Blood Culture - Final NO GROWTH AFTER 5 DAYS INCUBATION 04/02/18 22:25 Blood - Peripheral Venous Blood Culture - Final NO GROWTH AFTER 5 DAYS INCUBATION 04/03/18 13:05 Peritoneal Fluid Gram Stain - Final 04/03/18 13:05 Peritoneal Fluid Body Fluid Culture - Final Escherichia Coli#2 Beta Hem Streptococcus Group F Gemella Morbillorum 04/03/18 13:05 Peritoneal Fluid Anaerobic Culture - Final Bacteroides Fragilis 04/02/18 23:05 Urine - Urine - Catheterized Urine Culture - Final NO GROWTH OBTAINED imp/reccd s/p drainage of intrabdominal aabscess- s/p ex lap and Hartmans procedure- perforated diverticulitis(surgery 04/03) Acute renal failure-improved metabolic acidosis resolved anemia switch to rocephin/flagyl-day #6 antibiotics continue antibiotics through the weekend continues to improve Problem List - Problems (1) Intra-abdominal abscess Code(s): K65.1 - PERITONEAL ABSCESS (2) Acute kidney failure Code(s): N17.9 - ACUTE KIDNEY FAILURE, UNSPECIFIED
[2018-04-09] MEDS: morphine SULFATE 4 MG/ML VIAL IVPUSH PRN (15:21)
--- NOTE | 2018-04-09 15:34 | PN ---
Progress Note, Physician History of Present Illness: Pt seen and examined at bedside. She is awake and alert. She is out of bed to chair. She denies shortness of breath. - Current Medication List Current Medications: Active Medications Acetaminophen (Ofirmev Injection -) 1,000 mg IVPB Q8H PRN PRN Reason: PAIN LEVEL 6-10 Albuterol Sulfate (Ventolin 0.083% Nebulizer Soln -) 1 amp NEB Q6H PRN PRN Reason: SHORT OF BREATH/WHEEZING Atorvastatin Calcium (Lipitor -) 20 mg PO HS [facility] Heparin Sodium (Porcine) (Heparin -) 5,000 unit SQ TID [facility] Last Admin: 04/09/18 14:41 Dose: 5,000 unit Potassium Chloride 10 meq/ (Dextrose) 1,005 mls @ 83 mls/hr IVPB Q12H [facility] Last Admin: 04/09/18 15:29 Dose: 83 mls/hr Metronidazole (Flagyl 500mg Premixed Ivpb -) 500 mg in 100 mls @ 100 mls/hr IVPB Q8H-IV [facility] Last Admin: 04/09/18 10:55 Dose: 100 mls/hr Piperacillin Sod/Tazobactam (Sod 2.25 gm/ Dextrose) 50 mls @ 100 mls/hr IVPB Q6H-IV [facility]; Protocol Last Admin: 04/09/18 14:45 Dose: 100 mls/hr Ceftriaxone Sodium 2 gm/ (Dextrose) 100 mls @ 200 mls/hr IVPB DAILY [facility]; Protocol Levothyroxine Sodium (Synthroid -) 50 mcg PO DAILY@0700 [facility] Last Admin: 04/09/18 10:56 Dose: 50 mcg Metoprolol Succinate (Toprol Xl -) 25 mg PO DAILY [facility] Last Admin: 04/09/18 10:56 Dose: 25 mg Metoprolol Tartrate (Lopressor Injection -) 5 mg IVPUSH Q4H PRN PRN Reason: HYPERTENSION Morphine Sulfate (Morphine Sulfate) 4 mg IVPUSH Q4H PRN PRN Reason: PAIN LEVEL 6-10 Last Admin: 04/09/18 15:21 Dose: 4 mg Nystatin (Nystop Powder -) 1 applic TP DAILY [facility] Last Admin: 04/09/18 14:40 Dose: 1 applic Pantoprazole Sodium (Protonix -) 40 mg PO DAILY [facility] Last Admin: 04/09/18 10:56 Dose: 40 mg Saliva Substitute (Mouthkote Solution -) 1 applic MM DAILY [facility] Last Admin: 04/09/18 10:37 Dose: Not Given Sertraline HCl (Zoloft -) 50 mg PO DAILY [facility] Last Admin: 04/09/18 10:56 Dose: 50 mg - Objective Vital Signs: Vital Signs Temperature 98.6 F 04/09/18 06:00 Pulse Rate 70 04/09/18 06:00 Respiratory Rate 20 04/09/18 06:00 Blood Pressure 157/67 04/09/18 06:00 O2 Sat by Pulse Oximetry (%) 98 04/08/18 09:00 Constitutional: Yes: Calm Eyes: Yes: Conjunctiva Clear HENT: Yes: Atraumatic Cardiovascular: Yes: S1, S2 Respiratory: Yes: CTA Bilaterally Gastrointestinal: Yes: Other (dressing in place) Genitourinary: Yes: Incontinence Edema: No Neurological: Yes: Oriented Psychiatric: Yes: Oriented Labs: CBC, BMP 04/09/18 06:20 04/09/18 06:00 INR, PTT INR 1.51 (0.83-1.09) H 04/02/18 10:40 Problem List - Problems (1) Acute kidney failure Code(s): N17.9 - ACUTE KIDNEY FAILURE, UNSPECIFIED Assessment/Plan Current Medications Generic Name Dose Route Start Last Admin Trade Name Aby PRN Reason Stop Dose Admin Acetaminophen 1,000 mg 04/07/18 18:20 Ofirmev Injection - IVPB Q8H PRN PAIN LEVEL 6-10 Albuterol Sulfate 1 amp 04/07/18 18:20 Ventolin 0.083% Nebulizer Soln - NEB Q6H PRN SHORT OF BREATH/WHEEZING Atorvastatin Calcium 20 mg 04/09/18 22:00 Lipitor - PO HS [facility] Heparin Sodium (Porcine) 5,000 unit 04/07/18 22:00 04/09/18 14:41 Heparin - SQ 5,000 unit TID [facility] Administration Potassium Chloride 10 meq/ 1,005 mls @ 83 mls/hr 04/07/18 13:56 04/09/18 15: 29 Dextrose IVPB 83 mls/hr Q12H [facility] Administration Metronidazole 500 mg in 100 mls @ 100 mls/hr 04/08/18 02:00 04/09/18 10:55 Flagyl 500mg Premixed Ivpb - IVPB 100 mls/hr Q8H-IV [facility] Administration Piperacillin Sod/Tazobactam 50 mls @ 100 mls/hr 04/07/18 21:00 04/09/18 14:45 Sod 2.25 gm/ Dextrose IVPB 100 mls/hr Q6H-IV [facility] Administration Protocol Ceftriaxone Sodium 2 gm/ 100 mls @ 200 mls/hr 04/09/18 15:15 Dextrose IVPB DAILY [facility] Protocol Levothyroxine Sodium 50 mcg 04/09/18 09:15 04/09/18 10:56 Synthroid - PO 50 mcg DAILY@0700 [facility] Administration Metoprolol Succinate 25 mg 04/08/18 10:00 04/09/18 10:56 Toprol Xl - PO 25 mg DAILY [facility] Administration Metoprolol Tartrate 5 mg 04/07/18 18:20 Lopressor Injection - IVPUSH Q4H PRN HYPERTENSION Morphine Sulfate 4 mg 04/07/18 18:20 04/09/18 15:21 Morphine Sulfate IVPUSH 4 mg Q4H PRN Administration PAIN LEVEL 6-10 Nystatin 1 applic 04/08/18 10:00 04/09/18 14:40 Nystop Powder - TP 1 applic DAILY [facility] Administration Pantoprazole Sodium 40 mg 04/09/18 10:00 04/09/18 10:56 Protonix - PO 40 mg DAILY [facility] Administration Saliva Substitute 1 applic 04/08/18 10:00 04/09/18 10:37 Mouthkote Solution - MM Not Given DAILY MARY JANE Sertraline HCl 50 mg 04/09/18 10:00 04/09/18 10:56 Zoloft - PO 50 mg DAILY [facility] Administration Impression 1. MARKIE 2. resp failure 3. sepsis 4. perforated diverticula 5. acidosis 6. s/p ex-lap/SOPHIE/Bess's Procedure/Abdominal Washout 7. CAD 8. HTN 9. Hyperlipidemia 10. Anemia 11. hypernatremia Plan - sodium continues to improve - repeat labs in am - pt tolerating PO diet - likely resolving ATN - cont with d5w Dr Perdomo
[2018-04-09] MEDS: ACETAMINOPHEN 1000 MG/100 ML VIAL (NON FORMULARY) IVPB PRN (15:46)
[2018-04-09] MEDS ORDERED: DEXTROSE 5%-WATER 100 ML IVPB ONE (17:38)
[2018-04-09] MEDS: CEFTRIAXONE 2 GM in DEXTROSE 5%-WATER 100 ML IVPB SCH (18:11)
[2018-04-09] MEDS: CALCIUM 250MG/VIT-D 125 UNITS 1 COMBO TABLET PO SCH (18:11)
[2018-04-09] MEDS: ATORVASTATIN CA 20 MG TABLET (FP) PO SCH (21:52)
[2018-04-10] MEDS: ACETAMINOPHEN 1000 MG/100 ML VIAL (NON FORMULARY) IVPB PRN ×2 (00:04→20:20)
[2018-04-10] MEDS: POTASSIUM CHLORIDE 10 MEQ in DEXTROSE 5%-WATER - 1,000 ML IVPB SCH ×3 (03:20→20:21)
[2018-04-10] MEDS: HEPARIN NA (PORCINE) 5,000 UNITS/ML 1ML VIAL SQ SCH ×4 (05:49→21:05)
[2018-04-10] MEDS ORDERED: oxyCODONE HCL 5 MG TABLET PO ONE (05:54)
[2018-04-10] MEDS: LEVOTHYROXINE NA 50 MCG TABLET (FP) PO SCH (06:06)
[2018-04-10 09:28] LABS: BASO % 0.3 % (0-2.0); EOS % 0.9 % (0-4.5); HEMATOCRIT 26.1 % (32.4-45.2); HEMOGLOBIN 8.7 GM/dL (10.7-15.3); LYMPH % 10.9 % (8-40); MCH 29.3 pg (25.7-33.7); MCHC 33.3 g/dl (32.0-36.0); MEAN CELL VOLUME 87.8 fl (80-96); MONO % 5.9 % (3.8-10.2); PLATELET COUNT 277 K/MM3 (134-434); RBC 2.97 M/mm3 (3.60-5.2); RDW 17.5 % (11.6-15.6); WHITE BLOOD COUNT 11.6 K/mm3 (4.0-10.0)
[2018-04-10 10:13] LABS: ALBUMIN 1.5 g/dl (3.4-5.0); ALK PHOS 85 U/L (45-117); ANION GAP 8 MMOL/L (8-16); BILIRUBIN,TOTAL 0.6 mg/dL (0.2-1); BLOOD UREA NITROGEN 18 mg/dL (7-18); CHLORIDE 113 mmol/L (98-107); CO2 22 mmol/L (21-32); CREATININE 1.4 mg/dL (0.55-1.3); GLUCOSE,RANDOM 125 mg/dL (74-106); MAGNESIUM 1.4 mg/dL (1.8-2.4); POTASSIUM 3.6 mmol/L (3.5-5.1); SGOT/AST 22 U/L (15-37); SGPT/ALT 19 U/L (13-61); SODIUM 144 mmol/L (136-145); TOT PROT 5.2 g/dl (6.4-8.2)
[2018-04-10 10:17] LABS: CALCIUM 6.7 mg/dL (8.5-10.1)
[2018-04-10] MEDS ORDERED: DEXTROSE 5%-WATER 100 ML IVPB ONE (10:36)
[2018-04-10] MEDS: CEFTRIAXONE 2 GM in DEXTROSE 5%-WATER 100 ML IVPB SCH (10:39)
[2018-04-10] MEDS: PANTOPRAZOLE 40 MG TABLET (FP) PO SCH (10:41)
[2018-04-10] MEDS: metoPROLOL SUCCINATE 25 MG TAB.SR.24H (FP) PO SCH (10:42)
[2018-04-10] MEDS: CALCIUM 250MG/VIT-D 125 UNITS 1 COMBO TABLET PO SCH (10:42)
[2018-04-10] MEDS: SERTRALINE HCL 50 MG TABLET (FP) PO SCH (10:42)
[2018-04-10] MEDS: LYTES/YERBA SANTA 240 ML BOTTLE MM SCH (10:43)
[2018-04-10] MEDS: NYSTATIN POWDER 100,000 UNITS/GM - 15 GM TOPICAL POWDER TP SCH (10:43)
--- NOTE | 2018-04-10 11:00 | PN ---
Progress Note (short form) - Note Progress Note: RENAL Pt is awake and alert comfortable no specific complaints Last Vital Signs Temp Pulse Resp BP Pulse Ox 98.2 F 62 18 159/79 98 04/10/18 06:22 04/10/18 06:22 04/10/18 06:22 04/10/18 06:22 04/09/18 21:00 lungs clear cvs s1s2 abd soft, ROGE drain noted ext no edema neuro alert CBC, BMP 04/10/18 08:00 04/10/18 08:00 Current Medications Generic Name Dose Route Start Last Admin Trade Name Freq PRN Reason Stop Dose Admin Acetaminophen 1,000 mg 04/07/18 18:20 04/10/18 00:04 Ofirmev Injection - IVPB 1,000 mg Q8H PRN Administration PAIN LEVEL 6-10 Albuterol Sulfate 1 amp 04/07/18 18:20 Ventolin 0.083% Nebulizer Soln - NEB Q6H PRN SHORT OF BREATH/WHEEZING Atorvastatin Calcium 20 mg 04/09/18 22:00 04/09/18 21:52 Lipitor - PO 20 mg HS [facility] Administration Calcium/Vitamin D 1 tab 04/09/18 16:30 04/10/18 10:42 Oscal 250 Mg+D - PO 1 tab DAILY [facility] Administration Heparin Sodium (Porcine) 5,000 unit 04/07/18 22:00 04/10/18 05:49 Heparin - SQ 5,000 unit TID [facility] Administration Potassium Chloride 10 meq/ 1,005 mls @ 83 mls/hr 04/07/18 13:56 04/10/18 05: 56 Dextrose IVPB 83 mls/hr Q12H [facility] Administration Metronidazole 500 mg in 100 mls @ 100 mls/hr 04/08/18 02:00 04/10/18 01:52 Flagyl 500mg Premixed Ivpb - IVPB 100 mls/hr Q8H-IV [facility] Administration Ceftriaxone Sodium 2 gm/ 100 mls @ 200 mls/hr 04/09/18 15:15 04/10/18 10:39 Dextrose IVPB 200 mls/hr DAILY [facility] Administration Protocol Levothyroxine Sodium 50 mcg 04/09/18 09:15 04/10/18 06:06 Synthroid - PO 50 mcg DAILY@0700 [facility] Administration Metoprolol Succinate 25 mg 04/08/18 10:00 04/10/18 10:42 Toprol Xl - PO 25 mg DAILY [facility] Administration Metoprolol Tartrate 5 mg 04/07/18 18:20 Lopressor Injection - IVPUSH Q4H PRN HYPERTENSION Morphine Sulfate 4 mg 04/07/18 18:20 04/08/18 21:48 Morphine Sulfate IVPUSH 4 mg Q4H PRN Administration PAIN LEVEL 6-10 Nystatin 1 applic 04/08/18 10:00 04/10/18 10:43 Nystop Powder - TP 1 applic DAILY [facility] Administration Pantoprazole Sodium 40 mg 04/09/18 10:00 04/10/18 10:41 Protonix - PO 40 mg DAILY [facility] Administration Saliva Substitute 1 applic 04/08/18 10:00 04/10/18 10:43 Mouthkote Solution - MM Not Given DAILY [facility]ANE Sertraline HCl 50 mg 04/09/18 10:00 04/10/18 10:42 Zoloft - PO 50 mg DAILY [facility] Administration Impression 1. MARKIE 2. resp failure 3. sepsis 4. perforated diverticula 5. acidosis 6. s/p ex-lap/SOPHIE/Bess's Procedure/Abdominal Washout 7. CAD 8. HTN 9. Hyperlipidemia 10. Anemia 11. hypernatremia resolved 12 hypocalcemia with normal corrected calcium Plan will make no changes for now can reduce fluids if taking po no need to replace calcium MV
--- NOTE | 2018-04-10 12:06 | PN ---
Physical Exam: SUBJECTIVE: Patient seen and examined. family at bedside. report patient is having poor nutrition. OBJECTIVE: corrected calcium is 8.7 Vital Signs Period Temp Pulse Resp BP Sys/Andrews Pulse Ox Last 24 Hr 97.7 F-98.2 F 62-80 18-18 145-166/73-82 98 GENERAL: The patient is awake, alert, anxious, sitting in chair. wants to go back to bed HEAD: Normal with no signs of trauma. EYES: PERRL, extraocular movements intact, sclera anicteric, conjunctiva clear. No ptosis. ENT: Ears normal, nares patent, oropharynx clear without exudates, moist mucous membranes. NECK: Trachea midline, full range of motion, supple. LUNGS: Breath sounds equal, clear/dim at bases. HEART: Regular rate and rhythm ABDOMEN: tomas drain with sero sang drain on right abdomen. left colostomy with liquid stool EXTREMITIES: 2+ pulses, warm, well-perfused, no edema. NEUROLOGICAL: Normal speech, gait not observed. PSYCH: Normal mood, normal affect. SKIN: stage 1 pressure on lower left buttocks. Laboratory Results - last 24 hr 04/10/18 04/10/18 08:00 08:00 WBC 11.6 H RBC 2.97 L Hgb 8.7 L Hct 26.1 L MCV 87.8 MCH 29.3 MCHC 33.3 RDW 17.5 H Plt Count 277 MPV 8.0 Absolute Neuts (auto) 9.5 H Neutrophils % 82.0 Lymphocytes % 10.9 Monocytes % 5.9 Eosinophils % 0.9 Basophils % 0.3 Nucleated RBC % 0 Sodium 144 Potassium 3.6 Chloride 113 H Carbon Dioxide 22 Anion Gap 8 BUN 18 Creatinine 1.4 H Creat Clearance w eGFR 36.66 Random Glucose 125 H Calcium 6.7 L* Phosphorus 3.0 Magnesium 1.4 L Total Bilirubin 0.6 AST 22 ALT 19 Alkaline Phosphatase 85 Total Protein 5.2 L Albumin 1.5 L Active Medications Generic Name Dose Route Start Last Admin Trade Name Freq PRN Reason Stop Dose Admin Acetaminophen 1,000 mg 04/07/18 18:20 04/10/18 00:04 Ofirmev Injection - IVPB 1,000 mg Q8H PRN Administration PAIN LEVEL 6-10 Albuterol Sulfate 1 amp 04/07/18 18:20 Ventolin 0.083% Nebulizer Soln - NEB Q6H PRN SHORT OF BREATH/WHEEZING Atorvastatin Calcium 20 mg 04/09/18 22:00 04/09/18 21:52 Lipitor - PO 20 mg HS MARY JANE Administration Calcium/Vitamin D 1 tab 04/09/18 16:30 04/10/18 10:42 Oscal 250 Mg+D - PO 1 tab DAILY MARY JANE Administration Heparin Sodium (Porcine) 5,000 unit 04/07/18 22:00 04/10/18 05:49 Heparin - SQ 5,000 unit TID MARY JANE Administration Potassium Chloride 10 meq/ 1,005 mls @ 83 mls/hr 04/07/18 13:56 04/10/18 05: 56 Dextrose IVPB 83 mls/hr Q12H MARY JANE Administration Metronidazole 500 mg in 100 mls @ 100 mls/hr 04/08/18 02:00 04/10/18 11:13 Flagyl 500mg Premixed Ivpb - IVPB 100 mls/hr Q8H-IV MARY JANE Administration Ceftriaxone Sodium 2 gm/ 100 mls @ 200 mls/hr 04/09/18 15:15 04/10/18 10:39 Dextrose IVPB 200 mls/hr DAILY MARY JANE Administration Protocol Levothyroxine Sodium 50 mcg 04/09/18 09:15 04/10/18 06:06 Synthroid - PO 50 mcg DAILY@0700 MARY JANE Administration Metoprolol Succinate 25 mg 04/08/18 10:00 04/10/18 10:42 Toprol Xl - PO 25 mg DAILY MARY JANE Administration Metoprolol Tartrate 5 mg 04/07/18 18:20 Lopressor Injection - IVPUSH Q4H PRN HYPERTENSION Morphine Sulfate 4 mg 04/07/18 18:20 04/08/18 21:48 Morphine Sulfate IVPUSH 4 mg Q4H PRN Administration PAIN LEVEL 6-10 Nystatin 1 applic 04/08/18 10:00 04/10/18 10:43 Nystop Powder - TP 1 applic DAILY MARY JANE Administration Pantoprazole Sodium 40 mg 04/09/18 10:00 04/10/18 10:41 Protonix - PO 40 mg DAILY MARY JANE Administration Saliva Substitute 1 applic 04/08/18 10:00 04/10/18 10:43 Mouthkote Solution - MM Not Given DAILY MARY JANE Sertraline HCl 50 mg 04/09/18 10:00 04/10/18 10:42 Zoloft - PO 50 mg DAILY MARY JANE Administration ASSESSMENT/PLAN: Patient is a 77 year old female that presented to the hospital with abdominal distention and was found to have perforated diverticulitis with multiple abcesses. She is s/p exploratory laparotomy lysis of adhesions leigh's procedure, drainage and irrigation of multiple abcesses on 04/03/2018. GI: s/p exploratory laparotomy Anthony procedure, drainage and irrigation of multiple abscesses with tomas drain placement On Ceftriaxone/Flagyl Blood cultures negative Monitor drain output Stool sent for c diff Renal MARKIE. improving @ 1.4 currently Continue IVF Electrolyte imbalance Hypernatremia, resolved Hypokalemia, resolved Hypocalcemia, corrected 8.7 Hypomagnesium, repleted with mag 800mg x 1 repeat electrolyte panel in a.m. Heme: Anemia. low stable. asymptomatic Transfuse if hmg <7 Daily CBC Psyche Depression. On Zoloft Card: Hypertension, controlled CAD/CABG On Toprol. Endocrine Hypothyroidism On Synthroid Visit type - Emergency Visit Emergency Visit: Yes ED Registration Date: 04/03/18 Care time: The patient presented to the Emergency Department on the above date and was hospitalized for further evaluation of their emergent condition. - New Patient This patient is new to me today: Yes Date on this admission: 04/10/18 - Critical Care Critical Care patient: No - Discharge Referral Referred to [facility] Med P.C.: No
--- NOTE | 2018-04-10 12:45 | PN ---
Progress Note (short form) - Note Progress Note: POD7 from leigh's procedure Doing well tolerating diet VSS Abd soft wound clean, granulating JPs serosanguinous Stoma functioning wel Stool character very liquid Stable DC kevin Physical therapy Send stool for Cdiff
[2018-04-10] MEDS ORDERED: MAGNESIUM OXIDE 400 MG TABLET (FP) PO ONE (18:34)
[2018-04-10] MEDS: ATORVASTATIN CA 20 MG TABLET (FP) PO SCH ×2 (20:21→21:05)
[2018-04-11] MEDS: morphine SULFATE 4 MG/ML VIAL IVPUSH PRN ×3 (01:38→15:05)
[2018-04-11] MEDS: HEPARIN NA (PORCINE) 5,000 UNITS/ML 1ML VIAL SQ SCH ×4 (05:35→21:07)
[2018-04-11] MEDS ORDERED: ACETAMINOPHEN 1000 MG/100 ML VIAL (NON FORMULARY) IVPB ONE (05:36)
[2018-04-11] MEDS: LEVOTHYROXINE NA 50 MCG TABLET (FP) PO SCH (06:16)
--- NOTE | 2018-04-11 09:38 | PN ---
Progress Note (short form) - Note Progress Note: RENAL Pt is awake and alert comfortable no specific complaints Last Vital Signs Temp Pulse Resp BP Pulse Ox 98.7 F 74 18 167/76 97 04/11/18 07:50 04/11/18 07:50 04/11/18 07:50 04/11/18 07:50 04/10/18 21:15 lungs clear cvs s1s2 abd soft, ROGE drain noted ext no edema neuro alert and oriented CBC, BMP 04/10/18 08:00 04/10/18 08:00 Current Medications Generic Name Dose Route Start Last Admin Trade Name Freq PRN Reason Stop Dose Admin Albuterol Sulfate 1 amp 04/07/18 18:20 Ventolin 0.083% Nebulizer Soln - NEB Q6H PRN SHORT OF BREATH/WHEEZING Atorvastatin Calcium 20 mg 04/09/18 22:00 04/10/18 21:05 Lipitor - PO Not Given HS MARY JANE Calcium/Vitamin D 1 tab 04/09/18 16:30 04/10/18 10:42 Oscal 250 Mg+D - PO 1 tab DAILY MARY JANE Administration Heparin Sodium (Porcine) 5,000 unit 04/07/18 22:00 04/11/18 05:35 Heparin - SQ 5,000 unit TID MARY JANE Administration Potassium Chloride 10 meq/ 1,005 mls @ 83 mls/hr 04/07/18 13:56 04/10/18 20: 21 Dextrose IVPB 83 mls/hr Q12H MARY JANE Administration Metronidazole 500 mg in 100 mls @ 100 mls/hr 04/08/18 02:00 04/11/18 01:00 Flagyl 500mg Premixed Ivpb - IVPB 100 mls/hr Q8H-IV MARY JANE Administration Ceftriaxone Sodium 2 gm/ 100 mls @ 200 mls/hr 04/09/18 15:15 04/10/18 10:39 Dextrose IVPB 200 mls/hr DAILY MARY JANE Administration Protocol Levothyroxine Sodium 50 mcg 04/09/18 09:15 04/11/18 06:16 Synthroid - PO 50 mcg DAILY@0700 MARY JANE Administration Metoprolol Succinate 25 mg 04/08/18 10:00 04/10/18 10:42 Toprol Xl - PO 25 mg DAILY MARY JANE Administration Metoprolol Tartrate 5 mg 04/07/18 18:20 Lopressor Injection - IVPUSH Q4H PRN HYPERTENSION Morphine Sulfate 4 mg 04/07/18 18:20 04/11/18 01:38 Morphine Sulfate IVPUSH 4 mg Q4H PRN Administration PAIN LEVEL 6-10 Nystatin 1 applic 04/08/18 10:00 04/10/18 10:43 Nystop Powder - TP 1 applic DAILY MARY JANE Administration Pantoprazole Sodium 40 mg 04/09/18 10:00 04/10/18 10:41 Protonix - PO 40 mg DAILY MARY JANE Administration Saliva Substitute 1 applic 04/08/18 10:00 04/10/18 10:43 Mouthkote Solution - MM Not Given DAILY MARY JANE Sertraline HCl 50 mg 04/09/18 10:00 04/10/18 10:42 Zoloft - PO 50 mg DAILY MARY JANE Administration Impression 1. MARKIE 2. resp failure 3. sepsis 4. perforated diverticula 5. acidosis 6. s/p ex-lap/SOPHIE/Bess's Procedure/Abdominal Washout 7. CAD 8. HTN 9. Hyperlipidemia 10. Anemia 11. hypernatremia resolved 12 hypocalcemia with normal corrected calcium Plan will make no changes for now will need to follow up labs from today seems stable MV
[2018-04-11] MEDS: SERTRALINE HCL 50 MG TABLET (FP) PO SCH (09:52)
[2018-04-11] MEDS: metoPROLOL SUCCINATE 25 MG TAB.SR.24H (FP) PO SCH (09:52)
[2018-04-11] MEDS: CALCIUM 250MG/VIT-D 125 UNITS 1 COMBO TABLET PO SCH (09:52)
[2018-04-11] MEDS: PANTOPRAZOLE 40 MG TABLET (FP) PO SCH (09:52)
[2018-04-11] MEDS: POTASSIUM CHLORIDE 10 MEQ in DEXTROSE 5%-WATER - 1,000 ML IVPB SCH ×2 (10:06→15:13)
[2018-04-11] MEDS: NYSTATIN POWDER 100,000 UNITS/GM - 15 GM TOPICAL POWDER TP SCH (10:12)
[2018-04-11] MEDS: LYTES/YERBA SANTA 240 ML BOTTLE MM SCH ×2 (11:17→11:35)
[2018-04-11] MEDS ORDERED: DEXTROSE 5%-WATER 100 ML IVPB ONE (11:23)
[2018-04-11] MEDS: CEFTRIAXONE 2 GM in DEXTROSE 5%-WATER 100 ML IVPB SCH (11:23)
[2018-04-11] MEDS ORDERED: ACETAMINOPHEN 325 MG TABLET (FP) PO ONE (12:59)
--- NOTE | 2018-04-11 13:56 | PN ---
Physical Exam: SUBJECTIVE: Patient seen and examined OBJECTIVE: cmp now Vital Signs Period Temp Pulse Resp BP Sys/Andrews Pulse Ox Last 24 Hr 98 F-99.1 F 71-82 18-20 111-167/69-76 97 GENERAL: The patient is awake, alert, anxious, sitting in chair. wants to go back to bed HEAD: Normal with no signs of trauma. EYES: PERRL, extraocular movements intact, sclera anicteric, conjunctiva clear. No ptosis. ENT: Ears normal, nares patent, oropharynx clear without exudates, moist mucous membranes. NECK: Trachea midline, full range of motion, supple. LUNGS: Breath sounds equal, clear/dim at bases. HEART: Regular rate and rhythm ABDOMEN: tomas drains with sero sang drain on right/left abdomen. left colostomy with liquid stool EXTREMITIES: 2+ pulses, warm, well-perfused, no edema. NEUROLOGICAL: Normal speech, unsteady gait PSYCH: Normal mood, normal affect. SKIN: stage 1 pressure on lower left buttocks. Active Medications Generic Name Dose Route Start Last Admin Trade Name Freq PRN Reason Stop Dose Admin Albuterol Sulfate 1 amp 04/07/18 18:20 Ventolin 0.083% Nebulizer Soln - NEB Q6H PRN SHORT OF BREATH/WHEEZING Atorvastatin Calcium 20 mg 04/09/18 22:00 04/10/18 21:05 Lipitor - PO Not Given HS MARY JANE Calcium/Vitamin D 1 tab 04/09/18 16:30 04/11/18 09:52 Oscal 250 Mg+D - PO 1 tab DAILY MARY JANE Administration Heparin Sodium (Porcine) 5,000 unit 04/07/18 22:00 04/11/18 05:35 Heparin - SQ 5,000 unit TID MARY JANE Administration Potassium Chloride 10 meq/ 1,005 mls @ 83 mls/hr 04/07/18 13:56 04/11/18 10: 06 Dextrose IVPB 83 mls/hr Q12H MARY JANE Administration Metronidazole 500 mg in 100 mls @ 100 mls/hr 04/08/18 02:00 04/11/18 09:52 Flagyl 500mg Premixed Ivpb - IVPB 100 mls/hr Q8H-IV MARY JANE Administration Ceftriaxone Sodium 2 gm/ 100 mls @ 200 mls/hr 04/09/18 15:15 04/11/18 11:23 Dextrose IVPB 200 mls/hr DAILY MARY JANE Administration Protocol Levothyroxine Sodium 50 mcg 04/09/18 09:15 04/11/18 06:16 Synthroid - PO 50 mcg DAILY@0700 MARY JANE Administration Metoprolol Succinate 25 mg 04/08/18 10:00 04/11/18 09:52 Toprol Xl - PO 25 mg DAILY MARY JANE Administration Metoprolol Tartrate 5 mg 04/07/18 18:20 Lopressor Injection - IVPUSH Q4H PRN HYPERTENSION Morphine Sulfate 4 mg 04/07/18 18:20 04/11/18 01:38 Morphine Sulfate IVPUSH 4 mg Q4H PRN Administration PAIN LEVEL 6-10 Nystatin 1 applic 04/08/18 10:00 04/11/18 10:12 Nystop Powder - TP 1 applic DAILY MARY JANE Administration Pantoprazole Sodium 40 mg 04/09/18 10:00 04/11/18 09:52 Protonix - PO 40 mg DAILY MARY JANE Administration Saliva Substitute 1 applic 04/08/18 10:00 04/11/18 11:35 Mouthkote Solution - MM Not Given DAILY MARY JANE Sertraline HCl 50 mg 04/09/18 10:00 04/11/18 09:52 Zoloft - PO 50 mg DAILY MARY JANE Administration ASSESSMENT/PLAN: Patient is a 77 year old female that presented to the hospital with abdominal distention and was found to have perforated diverticulitis with multiple abcesses. She is s/p exploratory laparotomy lysis of adhesions leigh's procedure, drainage and irrigation of multiple abscesses on 04/03/2018. GI: s/p exploratory laparotomy Anthony procedure, drainage and irrigation of multiple abscesses with tomas drain placement On Ceftriaxone/Flagyl Blood cultures negative Monitor drain output Stool sent for c diff Renal MARKIE. improving @ 1.4 currently Continue IVF Electrolyte imbalance Hypernatremia, resolved Hypokalemia, resolved Hypocalcemia, corrected 8.7 Hypomagnesium, repleted with mag 800mg x 1 repeat electrolyte panel in a.m. Heme: Anemia. low stable. asymptomatic Transfuse if hmg <7 Daily CBC Psyche Depression. On Zoloft Card: Hypertension, controlled CAD/CABG On Toprol. Endocrine Hypothyroidism On Synthroid Visit type - Emergency Visit Emergency Visit: Yes ED Registration Date: 04/03/18 Care time: The patient presented to the Emergency Department on the above date and was hospitalized for further evaluation of their emergent condition. - New Patient This patient is new to me today: No - Critical Care Critical Care patient: No - Discharge Referral Referred to [facility] Med P.C.: No
[2018-04-11] MEDS ORDERED: diazePAM 5 MG TABLET PO ONE (16:28)
[2018-04-11 18:26] LABS: BASO % 0.3 % (0-2.0); HEMATOCRIT 29.9 % (32.4-45.2); HEMOGLOBIN 10.1 GM/dL (10.7-15.3); LYMPH % 12.7 % (8-40); MCH 30.3 pg (25.7-33.7); MCHC 33.7 g/dl (32.0-36.0); MEAN CELL VOLUME 90.1 fl (80-96); MEAN PLT VOLUME 8.1 fl (7.5-11.1); MONO % 7.8 % (3.8-10.2); NEUT % 78.2 % (42.8-82.8); PLATELET COUNT 338 K/MM3 (134-434); RBC 3.32 M/mm3 (3.60-5.2); WHITE BLOOD COUNT 10.6 K/mm3 (4.0-10.0)
[2018-04-11] MEDS ORDERED: MAGNESIUM OXIDE 400 MG TABLET (FP) PO ONE (18:46)
[2018-04-11 18:56] LABS: ALBUMIN 1.8 g/dl (3.4-5.0); ALK PHOS 135 U/L (45-117); ANION GAP 8 MMOL/L (8-16); BILIRUBIN,TOTAL 0.4 mg/dL (0.2-1); BLOOD UREA NITROGEN 13 mg/dL (7-18); CHLORIDE 113 mmol/L (98-107); CO2 22 mmol/L (21-32); CREATININE 1.4 mg/dL (0.55-1.3); GLUCOSE,RANDOM 124 mg/dL (74-106); POTASSIUM 3.7 mmol/L (3.5-5.1); SGOT/AST 27 U/L (15-37); SGPT/ALT 21 U/L (13-61); SODIUM 143 mmol/L (136-145)
[2018-04-11] MEDS: ATORVASTATIN CA 20 MG TABLET (FP) PO SCH ×2 (20:25→21:07)
[2018-04-11] MEDS: ACETAMINOPHEN 325 MG TABLET (FP) PO PRN (20:26)
[2018-04-11] MEDS: MELATONIN 1 MG TABLET PO SCH (22:00)
[2018-04-12] MEDS: POTASSIUM CHLORIDE 10 MEQ in DEXTROSE 5%-WATER - 1,000 ML IVPB SCH ×3 (00:18→13:21)
[2018-04-12] MEDS: ACETAMINOPHEN 325 MG TABLET (FP) PO PRN ×2 (02:19→15:18)
[2018-04-12] MEDS: HEPARIN NA (PORCINE) 5,000 UNITS/ML 1ML VIAL SQ SCH ×3 (07:15→22:03)
[2018-04-12] MEDS: LEVOTHYROXINE NA 50 MCG TABLET (FP) PO SCH (07:15)
[2018-04-12] MEDS ORDERED: DEXTROSE 5%-WATER 200 ML IVPB ONE (09:56)
[2018-04-12] MEDS: CEFTRIAXONE 2 GM in DEXTROSE 5%-WATER 100 ML IVPB SCH (10:00)
[2018-04-12] MEDS: CALCIUM 250MG/VIT-D 125 UNITS 1 COMBO TABLET PO SCH (10:14)
[2018-04-12] MEDS: SERTRALINE HCL 50 MG TABLET (FP) PO SCH (10:15)
[2018-04-12] MEDS: MAGNESIUM OXIDE 400 MG TABLET (FP) PO SCH ×2 (10:15→22:03)
[2018-04-12] MEDS: metoPROLOL SUCCINATE 25 MG TAB.SR.24H (FP) PO SCH (10:15)
[2018-04-12] MEDS: PANTOPRAZOLE 40 MG TABLET (FP) PO SCH (10:15)
[2018-04-12] MEDS: LYTES/YERBA SANTA 240 ML BOTTLE MM SCH ×2 (10:20→13:22)
[2018-04-12] MEDS: NYSTATIN POWDER 100,000 UNITS/GM - 15 GM TOPICAL POWDER TP SCH (10:21)
[2018-04-12 12:43] LABS: BASO % 0.3 % (0-2.0); HEMATOCRIT 27.4 % (32.4-45.2); HEMOGLOBIN 9.1 GM/dL (10.7-15.3); LYMPH % 10.5 % (8-40); MCHC 33.3 g/dl (32.0-36.0); MEAN PLT VOLUME 8.4 fl (7.5-11.1); MONO % 8.7 % (3.8-10.2); NEUT % 79.5 % (42.8-82.8); PLATELET COUNT 345 K/MM3 (134-434); RBC 3.04 M/mm3 (3.60-5.2); RDW 20.2 % (11.6-15.6); WHITE BLOOD COUNT 9.1 K/mm3 (4.0-10.0)
[2018-04-12 13:48] LABS: ALBUMIN 1.6 g/dl (3.4-5.0); ALK PHOS 139 U/L (45-117); ANION GAP 7 MMOL/L (8-16); BILIRUBIN,TOTAL 0.4 mg/dL (0.2-1); BLOOD UREA NITROGEN 12 mg/dL (7-18); CHLORIDE 111 mmol/L (98-107); CO2 23 mmol/L (21-32); CREATININE 1.3 mg/dL (0.55-1.3); GLUCOSE,RANDOM 132 mg/dL (74-106); MAGNESIUM 1.6 mg/dL (1.8-2.4); POTASSIUM 3.6 mmol/L (3.5-5.1); SGOT/AST 20 U/L (15-37); SGPT/ALT 16 U/L (13-61); SODIUM 141 mmol/L (136-145); TOT PROT 5.6 g/dl (6.4-8.2)
[2018-04-12 13:58] LABS: CALCIUM 6.9 mg/dL (8.5-10.1)
[2018-04-12] MEDS ORDERED: POTASSIUM CHLORIDE 10 MEQ in DEXTROSE 5%-WATER - 1,000 ML IVPB SCH (14:37)
--- NOTE | 2018-04-12 14:37 | PN ---
Progress Note, Physician History of Present Illness: Pt seen and examined at bedside. She is out of bed to chair. She denies shortness of breath. - Current Medication List Current Medications: Active Medications Acetaminophen (Tylenol -) 650 mg PO Q4H PRN PRN Reason: PAIN LEVEL 1-5 Last Admin: 04/12/18 02:19 Dose: 650 mg Albuterol Sulfate (Ventolin 0.083% Nebulizer Soln -) 1 amp NEB Q6H PRN PRN Reason: SHORT OF BREATH/WHEEZING Atorvastatin Calcium (Lipitor -) 20 mg PO HS [facility] Last Admin: 04/11/18 21:07 Dose: Not Given Calcium/Vitamin D (Oscal 250 Mg+D -) 1 tab PO DAILY [facility] Last Admin: 04/12/18 10:14 Dose: 1 tab Heparin Sodium (Porcine) (Heparin -) 5,000 unit SQ TID [facility] Last Admin: 04/12/18 13:20 Dose: 5,000 unit Potassium Chloride 10 meq/ (Dextrose) 1,005 mls @ 83 mls/hr IVPB Q12H [facility] Last Admin: 04/12/18 13:21 Dose: Not Given Metronidazole (Flagyl 500mg Premixed Ivpb -) 500 mg in 100 mls @ 100 mls/hr IVPB Q8H-IV MARY JANE Last Admin: 04/12/18 10:16 Dose: 100 mls/hr Ceftriaxone Sodium 2 gm/ (Dextrose) 100 mls @ 200 mls/hr IVPB DAILY [facility]; Protocol Last Admin: 04/12/18 10:00 Dose: 200 mls/hr Levothyroxine Sodium (Synthroid -) 50 mcg PO DAILY@0700 [facility] Last Admin: 04/12/18 07:15 Dose: 50 mcg Magnesium Oxide (Mag-Ox -) 400 mg PO BID [facility] Last Admin: 04/12/18 10:15 Dose: 400 mg Melatonin (Melatonin) 1 mg PO [facility] Last Admin: 04/11/18 22:00 Dose: 1 mg Metoprolol Succinate (Toprol Xl -) 25 mg PO DAILY [facility] Last Admin: 04/12/18 10:15 Dose: 25 mg Metoprolol Tartrate (Lopressor Injection -) 5 mg IVPUSH Q4H PRN PRN Reason: HYPERTENSION Morphine Sulfate (Morphine Sulfate) 4 mg IVPUSH Q4H PRN PRN Reason: PAIN LEVEL 6-10 Last Admin: 04/11/18 01:38 Dose: 4 mg Nystatin (Nystop Powder -) 1 applic TP DAILY MARY JANE Last Admin: 04/12/18 10:21 Dose: 1 applic Pantoprazole Sodium (Protonix -) 40 mg PO DAILY MARY JANE Last Admin: 04/12/18 10:15 Dose: 40 mg Saliva Substitute (Mouthkote Solution -) 1 applic MM DAILY MARY JANE Last Admin: 04/12/18 13:22 Dose: Not Given Sertraline HCl (Zoloft -) 50 mg PO DAILY MARY JANE Last Admin: 04/12/18 10:15 Dose: 50 mg - Objective Vital Signs: Vital Signs Temperature 98.1 F 04/11/18 22:00 Pulse Rate 78 04/11/18 22:00 Respiratory Rate 20 04/11/18 22:00 Blood Pressure 148/70 04/11/18 22:00 O2 Sat by Pulse Oximetry (%) 97 04/10/18 21:15 Constitutional: Yes: Calm Eyes: Yes: Conjunctiva Clear HENT: Yes: Atraumatic Cardiovascular: Yes: S1, S2 Respiratory: Yes: CTA Bilaterally Gastrointestinal: Yes: Soft, Abdomen, Obese, Other (dressing in place) Musculoskeletal: Yes: WNL Edema: No Neurological: Yes: Oriented Psychiatric: Yes: Oriented Labs: CBC, BMP 04/12/18 12:10 04/12/18 12:10 INR, PTT INR 1.51 (0.83-1.09) H 04/02/18 10:40 Problem List - Problems (1) Acute kidney failure Code(s): N17.9 - ACUTE KIDNEY FAILURE, UNSPECIFIED Assessment/Plan Current Medications Generic Name Dose Route Start Last Admin Trade Name Freq PRN Reason Stop Dose Admin Acetaminophen 650 mg 04/11/18 20:15 04/12/18 02:19 Tylenol - PO 650 mg Q4H PRN Administration PAIN LEVEL 1-5 Albuterol Sulfate 1 amp 04/07/18 18:20 Ventolin 0.083% Nebulizer Soln - NEB Q6H PRN SHORT OF BREATH/WHEEZING Atorvastatin Calcium 20 mg 04/09/18 22:00 04/11/18 21:07 Lipitor - PO Not Given HS [facility] Calcium/Vitamin D 1 tab 04/09/18 16:30 04/12/18 10:14 Oscal 250 Mg+D - PO 1 tab DAILY MARY JANE Administration Heparin Sodium (Porcine) 5,000 unit 04/07/18 22:00 04/12/18 13:20 Heparin - SQ 5,000 unit TID MARY JANE Administration Potassium Chloride 10 meq/ 1,005 mls @ 83 mls/hr 04/07/18 13:56 04/12/18 13: 21 Dextrose IVPB Not Given Q12H MARY JANE Metronidazole 500 mg in 100 mls @ 100 mls/hr 04/08/18 02:00 04/12/18 10:16 Flagyl 500mg Premixed Ivpb - IVPB 100 mls/hr Q8H-IV MARY JANE Administration Ceftriaxone Sodium 2 gm/ 100 mls @ 200 mls/hr 04/09/18 15:15 04/12/18 10:00 Dextrose IVPB 200 mls/hr DAILY MARY JANE Administration Protocol Levothyroxine Sodium 50 mcg 04/09/18 09:15 04/12/18 07:15 Synthroid - PO 50 mcg DAILY@0700 MARY JANE Administration Magnesium Oxide 400 mg 04/12/18 10:00 04/12/18 10:15 Mag-Ox - PO 400 mg BID MARY JANE Administration Melatonin 1 mg 04/11/18 22:00 04/11/18 22:00 Melatonin PO 1 mg HS MARY JANE Administration Metoprolol Succinate 25 mg 04/08/18 10:00 04/12/18 10:15 Toprol Xl - PO 25 mg DAILY MARY JANE Administration Metoprolol Tartrate 5 mg 04/07/18 18:20 Lopressor Injection - IVPUSH Q4H PRN HYPERTENSION Morphine Sulfate 4 mg 04/07/18 18:20 04/11/18 01:38 Morphine Sulfate IVPUSH 4 mg Q4H PRN Administration PAIN LEVEL 6-10 Nystatin 1 applic 04/08/18 10:00 04/12/18 10:21 Nystop Powder - TP 1 applic DAILY MARY JANE Administration Pantoprazole Sodium 40 mg 04/09/18 10:00 04/12/18 10:15 Protonix - PO 40 mg DAILY MARY JANE Administration Saliva Substitute 1 applic 04/08/18 10:00 04/12/18 13:22 Mouthkote Solution - MM Not Given DAILY MARY JANE Sertraline HCl 50 mg 04/09/18 10:00 04/12/18 10:15 Zoloft - PO 50 mg DAILY MARY JANE Administration Impression 1. MARKIE 2. resp failure 3. sepsis 4. perforated diverticula 5. acidosis 6. s/p ex-lap/SOPHIE/Bess's Procedure/Abdominal Washout 7. CAD 8. HTN 9. Hyperlipidemia 10. Anemia 11. hypernatremia Plan - renal function is improving - decrease rate of fluids - will likely d/c fluids tomorrow - pt tolerating PO diet - likely resolving ATN Dr Perdomo
--- NOTE | 2018-04-12 15:08 | PN ---
Progress Note (short form) - Note Progress Note: POD 9, exploratory laparotomy lysis of adhesions leigh's procedure, drainage and irrigation of multiple abcesses Pt seen and examined. Son at bedside. States she is doing "okay". Has not been oob, son trying to encourage her. Tolerating PO, colostomy function. Denies fever, chills n/v. Vital Signs Temp 98.1 F 04/11/18 22:00 Pulse 78 04/11/18 22:00 Resp 20 04/11/18 22:00 BP 148/70 04/11/18 22:00 Pulse Ox 97 04/10/18 21:15 Intake & Output 04/11/18 04/12/18 04/12/18 23:59 11:59 23:59 Intake Total 1104 350 Output Total 100 80 Balance 1004 270 Intake: IV 664 D5 + 10 MEQ KCL @83 ML/HR 664 IVPB 200 Oral 240 350 Output: Drainage 100 80 Left Abdomen 50 50 Right Abdomen 50 30 Other: Voiding Method Bedpan Bedpan # Unmeasured Voids Void 2 CBC, BMP 04/12/18 12:10 04/12/18 12:10 Gen: awake, alert, nad, sitting in bed with son at bedside Resp: unlabored on RA CV: rrr, s1s2 Abdo: soft, tender to palpation at midline incision (appropriate to status), + bowel sounds, colostomy functioning stool does not appear overlying watery. Dressing removed, incision clean proximally, cynthia intact around umbilicus, distal incision clean small amount of skin necrosis (approx .5cm on lateral aspect mid incision on R). A/P: 77 y/o F w/ PMHx CAD s/p quadruple cardiac bypass, HLD, hypothyroidism, HTN , GERD, and anxiety, admitted 2 with lethargy, diffuse weakness, decreased PO intake and acute onset slurred speech/lack of speech, found to have perforated diverticulitis with multiple intra-abdominal abscesses. Doing well overall, exam stable. Afebrile, VSS, leukocytosis resolved. R ROGE drain output overnight 30ml (serosanguinous), additional 25ml in reservoir at time of removal. ROGE stripped and removed per attending instruction. Pt tolerated well. L ROGE output 50ml overnight. Serous drainage. Tubing stripped. -f/u cdiff -continue daily dressing changed with wet to dry/abd, change ostium/drain dressing -OOB, PT -Pain control -Diet -L ROGE to suction, monitor I&Os d/w attending Dr Jensen
--- NOTE | 2018-04-12 15:17 | PN ---
Progress Note (short form) - Note Progress Note: s/p ex lap andHartman's procedure- perforated diverticulitis, perforated sigmoid colon, multiple abscesses-04/03/18 kevin is out Vital Signs Period Temp Pulse Resp BP Sys/Andrews Pulse Ox Last 24 Hr 98.1 F-98.3 F 78-88 20-20 148-158/70-81 cor-rrr lungs clear abd soft, packing in place +ostomy function +tomas drain ext no edema CBC, BMP 04/12/18 12:10 04/12/18 12:10 Microbiology 04/10/18 13:50 Wound-Other Clostridium difficile (PCR) - Preliminary 04/02/18 22:30 Blood - Peripheral Venous Blood Culture - Final NO GROWTH AFTER 5 DAYS INCUBATION 04/02/18 22:25 Blood - Peripheral Venous Blood Culture - Final NO GROWTH AFTER 5 DAYS INCUBATION 04/03/18 13:05 Peritoneal Fluid Gram Stain - Final 04/03/18 13:05 Peritoneal Fluid Body Fluid Culture - Final Escherichia Coli#2 Beta Hem Streptococcus Group F Gemella Morbillorum 04/03/18 13:05 Peritoneal Fluid Anaerobic Culture - Final Bacteroides Fragilis 04/02/18 23:05 Urine - Urine - Catheterized Urine Culture - Final NO GROWTH OBTAINED imp/reccd s/p drainage of intrabdominal aabscess- s/p ex lap and Hartmans procedure- perforated diverticulitis(surgery 04/03) Acute renal failure-improved metabolic acidosis resolved anemia switch to rocephin/flagyl-day #9 antibiotics will d/c antiibotics and observe Problem List - Problems (1) Intra-abdominal abscess Code(s): K65.1 - PERITONEAL ABSCESS (2) Acute kidney failure Code(s): N17.9 - ACUTE KIDNEY FAILURE, UNSPECIFIED
--- NOTE | 2018-04-12 17:30 | PN ---
Physical Exam: SUBJECTIVE: Patient seen and examined at the bedside. in no acute distress. laying in bed, some pain from surgical site. OBJECTIVE: Vital Signs Period Temp Pulse Resp BP Sys/Andrews Pulse Ox Last 24 Hr 98.1 F-98.6 F 78-91 18-20 142-158/69-81 GENERAL: The patient is awake, alert, in no acute distress. HEAD: Normal with no signs of trauma. EYES: PERRL, extraocular movements intact, sclera anicteric, conjunctiva clear. No ptosis. ENT: Ears normal, nares patent, oropharynx clear without exudates, moist mucous membranes. NECK: Trachea midline, full range of motion, supple. LUNGS: Breath sounds equal, clear/dim at bases. HEART: Regular rate and rhythm ABDOMEN: tomas drain with sero sang drain on left abdomen. left colostomy with liquid stool EXTREMITIES: 2+ pulses, warm, well-perfused, no edema. NEUROLOGICAL: Normal speech, unsteady gait PSYCH: Normal mood, normal affect. SKIN: stage 1 pressure on lower left buttocks Laboratory Results - last 24 hr 04/11/18 04/11/18 04/11/18 18:15 18:15 18:15 WBC 10.6 H RBC 3.32 L Hgb 10.1 L Hct 29.9 L MCV 90.1 MCH 30.3 MCHC 33.7 RDW 19.0 H Plt Count 338 D MPV 8.1 Absolute Neuts (auto) 8.3 H Neutrophils % 78.2 Lymphocytes % 12.7 Monocytes % 7.8 Eosinophils % 1.0 Basophils % 0.3 Nucleated RBC % 0 Sodium 143 Potassium 3.7 Chloride 113 H Carbon Dioxide 22 Anion Gap 8 BUN 13 Creatinine 1.4 H Creat Clearance w eGFR 36.66 Random Glucose 124 H Calcium 7.0 L Magnesium 1.6 L Total Bilirubin 0.4 AST 27 ALT 21 Alkaline Phosphatase 135 H Total Protein 6.0 L Albumin 1.8 L 04/12/18 04/12/18 12:10 12:10 WBC 9.1 RBC 3.04 L Hgb 9.1 L Hct 27.4 L MCV 90.0 MCH 30.0 MCHC 33.3 RDW 20.2 H Plt Count 345 MPV 8.4 Absolute Neuts (auto) 7.3 Neutrophils % 79.5 Lymphocytes % 10.5 Monocytes % 8.7 Eosinophils % 1.0 Basophils % 0.3 Nucleated RBC % 0 Sodium 141 Potassium 3.6 Chloride 111 H Carbon Dioxide 23 Anion Gap 7 L BUN 12 Creatinine 1.3 Creat Clearance w eGFR 39.93 Random Glucose 132 H Calcium 6.9 L* Magnesium 1.6 L Total Bilirubin 0.4 AST 20 ALT 16 Alkaline Phosphatase 139 H Total Protein 5.6 L Albumin 1.6 L Active Medications Generic Name Dose Route Start Last Admin Trade Name Freq PRN Reason Stop Dose Admin Acetaminophen 650 mg 04/11/18 20:15 04/12/18 15:18 Tylenol - PO 650 mg Q4H PRN Administration PAIN LEVEL 1-5 Albuterol Sulfate 1 amp 04/07/18 18:20 Ventolin 0.083% Nebulizer Soln - NEB Q6H PRN SHORT OF BREATH/WHEEZING Atorvastatin Calcium 20 mg 04/09/18 22:00 04/11/18 21:07 Lipitor - PO Not Given HS MARY JANE Calcium/Vitamin D 1 tab 04/09/18 16:30 04/12/18 10:14 Oscal 250 Mg+D - PO 1 tab DAILY MARY JANE Administration Heparin Sodium (Porcine) 5,000 unit 04/07/18 22:00 04/12/18 13:20 Heparin - SQ 5,000 unit TID MARY JANE Administration Potassium Chloride 10 meq/ 1,005 mls @ 42 mls/hr 04/12/18 14:37 04/12/18 15: 18 Dextrose IVPB 42 mls/hr Q24H MARY JANE Administration Levothyroxine Sodium 50 mcg 04/09/18 09:15 04/12/18 07:15 Synthroid - PO 50 mcg DAILY@0700 MARY JANE Administration Magnesium Oxide 400 mg 04/12/18 10:00 04/12/18 10:15 Mag-Ox - PO 400 mg BID MARY JANE Administration Melatonin 1 mg 04/11/18 22:00 04/11/18 22:00 Melatonin PO 1 mg HS MARY JANE Administration Metoprolol Succinate 25 mg 04/08/18 10:00 04/12/18 10:15 Toprol Xl - PO 25 mg DAILY MARY JANE Administration Metoprolol Tartrate 5 mg 04/07/18 18:20 Lopressor Injection - IVPUSH Q4H PRN HYPERTENSION Morphine Sulfate 4 mg 04/07/18 18:20 04/11/18 01:38 Morphine Sulfate IVPUSH 4 mg Q4H PRN Administration PAIN LEVEL 6-10 Nystatin 1 applic 04/08/18 10:00 04/12/18 10:21 Nystop Powder - TP 1 applic DAILY MARY JANE Administration Pantoprazole Sodium 40 mg 04/09/18 10:00 04/12/18 10:15 Protonix - PO 40 mg DAILY MARY JANE Administration Saliva Substitute 1 applic 04/08/18 10:00 04/12/18 13:22 Mouthkote Solution - MM Not Given DAILY MARY JANE Sertraline HCl 50 mg 04/09/18 10:00 04/12/18 10:15 Zoloft - PO 50 mg DAILY MARY JANE Administration ASSESSMENT/PLAN: Patient is a 77 year old female that presented to the hospital with abdominal distention and was found to have perforated diverticulitis with multiple abcesses. She is s/p exploratory laparotomy lysis of adhesions leigh's procedure, drainage and irrigation of multiple abscesses on 04/03/2018. GI: s/p exploratory laparotomy Anthony procedure, drainage and irrigation of multiple abscesses with tomas drain placement Blood cultures negative. off antibiotics. Monitor drain output, right drain removed by surgery. left drain with sero sang output. Stool sent for c diff and pending. Renal MARKIE. improving @ 1.3 currently. renal following Electrolyte imbalance Hypernatremia, resolved Hypokalemia, resolved Hypocalcemia, corrected 8.8 Hypomagnesium, repleted with mag 800mg x 1, added mag 400 bid. repeat electrolyte panel in a.m. Heme: Anemia. low stable. asymptomatic Transfuse if hmg <7 Daily CBC Psyche Depression. On Zoloft Card: Hypertension, controlled CAD/CABG On Toprol. Endocrine Hypothyroidism On Synthroid SCDs Visit type - Emergency Visit Emergency Visit: Yes ED Registration Date: 04/03/18 Care time: The patient presented to the Emergency Department on the above date and was hospitalized for further evaluation of their emergent condition. - New Patient This patient is new to me today: No - Critical Care Critical Care patient: No - Discharge Referral Referred to [facility] No
[2018-04-12] MEDS ORDERED: MAGNESIUM OXIDE 400 MG TABLET (FP) PO ONE (17:32)
--- NOTE | 2018-04-12 19:22 | PN ---
Progress Note (short form) - Note Progress Note: s/p leigh's feeling well liquid stool VSS Afeb Abdomen soft Wound clean Doing well PT Wound vac DC planning
[2018-04-12] MEDS ORDERED: PT OWN MED DRAWER 7, Y5N ONE (21:58)
[2018-04-12] MEDS: MELATONIN 1 MG TABLET PO SCH (22:02)
[2018-04-12] MEDS: ATORVASTATIN CA 20 MG TABLET (FP) PO SCH (22:03)
[2018-04-12] MEDS: morphine SULFATE 4 MG/ML VIAL IVPUSH PRN (22:07)
[2018-04-13] MEDS: LEVOTHYROXINE NA 50 MCG TABLET (FP) PO SCH (06:08)
[2018-04-13] MEDS: HEPARIN NA (PORCINE) 5,000 UNITS/ML 1ML VIAL SQ SCH ×2 (06:08→13:25)
--- NOTE | 2018-04-13 09:11 | PN ---
Progress Note (short form) - Note Progress Note: 77yo F s/p leigh's procedure, pt seen and examined at bedside. Pt states that she is tolerating PO. Denies fever, chills, n/v, abd pain. Last Vital Signs Temp Pulse Resp BP Pulse Ox 99.5 F 78 20 150/73 96 04/13/18 06:00 04/13/18 06:00 04/13/18 06:00 04/13/18 06:00 04/12/18 09:00 CBC, BMP 04/12/18 12:10 04/12/18 12:10 PE: Gen: A&O X3 Resp: breathing comfortably Abd: soft, nontender, nondistended, incision clean with good granulation tissue , ostomy with stool and air present, LLQ drain in place with serosanguinous drain. Output: 25ml Problem List - Problems (1) Perforated bowel Assessment/Plan: Plan -will pull LLQ ROGE drain today -plan for vac placement to midline incision -OOB/ambulate Code(s): K63.1 - PERFORATION OF INTESTINE (NONTRAUMATIC)
[2018-04-13 10:18] LABS: BASO % 0.4 % (0-2.0); HEMATOCRIT 29.7 % (32.4-45.2); HEMOGLOBIN 9.8 GM/dL (10.7-15.3); LYMPH % 9.9 % (8-40); MCH 30.3 pg (25.7-33.7); MCHC 33.1 g/dl (32.0-36.0); MEAN CELL VOLUME 91.3 fl (80-96); MEAN PLT VOLUME 8.7 fl (7.5-11.1); MONO % 7.7 % (3.8-10.2); PLATELET COUNT 386 K/MM3 (134-434); RBC 3.25 M/mm3 (3.60-5.2); RDW 22.3 % (11.6-15.6); WHITE BLOOD COUNT 11.5 K/mm3 (4.0-10.0)
[2018-04-13] MEDS: MAGNESIUM OXIDE 400 MG TABLET (FP) PO SCH (10:30)
[2018-04-13] MEDS: CALCIUM 250MG/VIT-D 125 UNITS 1 COMBO TABLET PO SCH (10:30)
[2018-04-13] MEDS: PANTOPRAZOLE 40 MG TABLET (FP) PO SCH (10:30)
[2018-04-13] MEDS: SERTRALINE HCL 50 MG TABLET (FP) PO SCH (10:30)
[2018-04-13] MEDS: ACETAMINOPHEN 325 MG TABLET (FP) PO PRN (10:30)
[2018-04-13] MEDS: metoPROLOL SUCCINATE 25 MG TAB.SR.24H (FP) PO SCH (10:31)
[2018-04-13] MEDS: NYSTATIN POWDER 100,000 UNITS/GM - 15 GM TOPICAL POWDER TP SCH (10:33)
[2018-04-13 10:56] LABS: ALBUMIN 1.8 g/dl (3.4-5.0); ALK PHOS 162 U/L (45-117); ANION GAP 7 MMOL/L (8-16); BILIRUBIN,TOTAL 0.4 mg/dL (0.2-1); BLOOD UREA NITROGEN 11 mg/dL (7-18); CALCIUM 7.6 mg/dL (8.5-10.1); CHLORIDE 113 mmol/L (98-107); CO2 22 mmol/L (21-32); CREATININE 1.3 mg/dL (0.55-1.3); GLUCOSE,RANDOM 146 mg/dL (74-106); MAGNESIUM 1.7 mg/dL (1.8-2.4); PHOSPHOROUS 3.1 mg/dL (2.5-4.9); SGOT/AST 22 U/L (15-37); SGPT/ALT 18 U/L (13-61); SODIUM 142 mmol/L (136-145); TOT PROT 5.8 g/dl (6.4-8.2)
[2018-04-13] MEDS: LYTES/YERBA SANTA 240 ML BOTTLE MM SCH (11:10)
--- NOTE | 2018-04-13 12:37 | DS ---
Physical Examination Vital Signs: Vital Signs Temperature 99.5 F 04/13/18 06:00 Pulse Rate 78 04/13/18 06:00 Respiratory Rate 20 04/13/18 06:00 Blood Pressure 150/73 04/13/18 06:00 O2 Sat by Pulse Oximetry (%) 96 04/12/18 09:00 Constitutional: Yes: Well Nourished, No Distress, Calm Eyes: Yes: Conjunctiva Clear, PERRL HENT: Yes: Atraumatic, Normocephalic Neck: Yes: Supple Cardiovascular: Yes: Regular Rate and Rhythm Respiratory: Yes: Regular, CTA Bilaterally Gastrointestinal: Yes: Normal Bowel Sounds, Soft ...Rectal Exam: Yes: Deferred Musculoskeletal: Yes: WNL Extremities: Yes: WNL Edema: No Peripheral Pulses WNL: Yes Peripheral Pulses: Left Radial: 2+, Right Radial: 2+ Integumentary: Yes: WNL Wound/Incision: Yes: Clean/Dry, Dressing Dry and Intact Neurological: Yes: Alert, Oriented ...Motor Strength: WNL Psychiatric: Yes: Alert, Oriented Labs: CBC, BMP 04/13/18 09:35 04/13/18 09:35 Discharge Summary Reason For Visit: perforated diverticulitis with multiple abcesses Current Active Problems Abdominal distension (Acute) Acute kidney failure (Acute) Acute respiratory failure (Acute) Altered mental state (Acute) Anemia (Acute) Dehydration (Acute) Depression with anxiety (Acute) HLD (hyperlipidemia) (Acute) HTN (hypertension) (Acute) Hypothyroidism (Acute) Increased anion gap metabolic acidosis (Acute) Intra-abdominal abscess (Acute) Metabolic acidosis (Acute) Perforated bowel (Acute) Septic shock (Acute) Status post Anthony's procedure (Acute) UTI (urinary tract infection) (Acute) Procedures: Principal: 04/03/2018 exploratory laparotomy lysis of adhesions leigh's procedure with drainage and irrigation of multiple abcesses Hospital Course: 77 year old female, with a significant past medical history of s/p quadruple cardiac bypass, HLD, hypothyroidism, HTN, GERD, and anxiety, who presents to the emergency department with, 5 days of lethargy, diffuse weakness, decreased PO intake and acute onset (at approximately ~8pm) slurred speech/lack of speech. As per patients son and daughter at bedside, over the past 5 days she has not been eating and been increasingly lethargic. Daughter notes calling Dr. Celestino Green who prescribed her a Z-pack (compliant), without relief. Daughter notes today when she visited her the patient was speaking to her and her speech began to become slurred then progressed her not speaking and just sleeping, prompting them to call for EMS. In the ER pt found to have WBC > 17,000, BUN? creatinine 167/5.7 and BNP >4000. CT scan abd/pelvis showed 2 intra-abdominal abscesses/diverticulitis. She is now s/p s/p Leigh procedure. ROGE drain d/tg on at midday 04/13 with wound vac 3" to start on 04/14. Dressing changes to be done MWF. Pt should follow up outpatient with GI and surgery. Please ensure appointments are scheduled GI: Dr. Lamin Chau Address: [address] [place] [address] [address] [id number] Surgery: Dr. Gonzalez Address: [address] [place] [address] PCP: Dr Latrice Paniagua Address: [address] [place] [address] [address] [address] Condition: Improved - Instructions Diet, Activity, Other Instructions: ROGE drain d/tg on at midday 04/13 with wound vac 3" to start on 04/14. Dressing changes to be done MWF Disposition: ALF FACILITY - Home Medications Comprehensive Discharge Medication List: Ambulatory Orders Atorvastatin Ca [Lipitor] 20 mg PO HS 04/02/18 Diazepam [Valium] 5 mg PO DAILY 04/02/18 Fenofibrate Nanocrystallized [Fenofibrate] 145 mg PO DAILY 04/02/18 Ipratropium [place] [Atrovent Hfa] 17 mcg IH 04/02/18 Levothyroxine [Synthroid -] 25 mcg PO DAILY 04/02/18 Metoprolol Succinate [Toprol Xl] 25 mg PO DAILY 04/02/18 Olmesartan/Hydrochlorothiazide [Olmesartan-Hctz 20-12.5 mg Tab] 1 each PO Sertraline HCl [Zoloft -] 50 mg PO DAILY 04/02/18 Zolpidem Tartrate [Ambien] 10 mg PO HS 04/02/18 Acetaminophen [Tylenol .Regular Strength -] 650 mg PO Q4H PRN tablet 04/13/18 Albuterol 0.083% Nebulizer Nanette [Ventolin 0.083% Nebulizer Soln -] 1 amp NEB Q6H PRN amp 04/13/18 Calcium 250Mg/Vit-D 125 Units [Oscal 250 mg+D -] 1 tab PO DAILY tab 04/13/18 Heparin - 5,000 unit SQ TID vial 04/13/18 Levothyroxine [Synthroid -] 50 mcg PO DAILY@0700 tablet 04/13/18 Lytes/Yerba Collette [Mouthkote Solution -] 1 applic MM DAILY applic 04/13/18 Magnesium Oxide [Mag-Ox -] 400 mg PO BID tablet 04/13/18 Nystatin Powder [Nystop Powder -] 1 applic TP DAILY applic 04/13/18 Pantoprazole Sodium [Protonix -] 40 mg PO DAILY tablet.ec 04/13/18 Sertraline HCl [Zoloft -] 50 mg PO DAILY tablet 04/13/18 This patient is new to me today: Yes Date on this admission: 04/13/18 Emergency Visit: Yes ED Registration Date: 04/03/18 Care time: The patient presented to the Emergency Department on the above date and was hospitalized for further evaluation of their emergent condition. Critical Care patient: No - Discharge Referral Referred to [facility] No
--- NOTE | 2018-04-13 13:17 | PROC ---
Procedure Note Procedure: after speaking with Dr. Hamilton, he asked that the remaining ROGE drain be removed. Area cleansed with chloraprep. Suture cut. ROGE drain removed with distal tip fully intact. Steri strip applied to reapproximate ostium. Covered with large bandaid. Tolerated procedure well.
--- NOTE | 2018-04-13 14:37 | PN ---
Progress Note, Physician History of Present Illness: Pt seen and examined at bedside. She is awake and alert. She is tolerating diet. - Current Medication List Current Medications: Active Medications Acetaminophen (Tylenol -) 650 mg PO Q4H PRN PRN Reason: PAIN LEVEL 1-5 Last Admin: 04/13/18 10:30 Dose: 650 mg Atorvastatin Calcium (Lipitor -) 20 mg PO HS [facility] Last Admin: 04/12/18 22:03 Dose: 20 mg Calcium/Vitamin D (Oscal 250 Mg+D -) 1 tab PO DAILY [facility] Last Admin: 04/13/18 10:30 Dose: 1 tab Heparin Sodium (Porcine) (Heparin -) 5,000 unit SQ TID [facility] Last Admin: 04/13/18 13:25 Dose: 5,000 unit Levothyroxine Sodium (Synthroid -) 50 mcg PO DAILY@0700 [facility] Last Admin: 04/13/18 06:08 Dose: 50 mcg Magnesium Oxide (Mag-Ox -) 400 mg PO BID [facility] Last Admin: 04/13/18 10:30 Dose: 400 mg Melatonin (Melatonin) [address] [facility] Last Admin: 04/12/18 22:02 Dose: 1 mg Metoprolol Succinate (Toprol Xl -) 25 mg PO DAILY [facility] Last Admin: 04/13/18 10:31 Dose: 25 mg Metoprolol Tartrate (Lopressor Injection -) 5 mg IVPUSH Q4H PRN PRN Reason: HYPERTENSION Morphine Sulfate (Morphine Sulfate) 4 mg IVPUSH Q4H PRN PRN Reason: PAIN LEVEL 6-10 Last Admin: 04/12/18 22:07 Dose: 4 mg Nystatin (Nystop Powder -) 1 applic TP DAILY [facility] Last Admin: 04/13/18 10:33 Dose: 1 applic Pantoprazole Sodium (Protonix -) 40 mg PO DAILY [facility] Last Admin: 04/13/18 10:30 Dose: 40 mg Saliva Substitute (Mouthkote Solution -) 1 applic MM DAILY [facility] Last Admin: 04/13/18 11:10 Dose: Not Given Sertraline HCl (Zoloft -) 50 mg PO DAILY [facility] Last Admin: 04/13/18 10:30 Dose: 50 mg - Objective Vital Signs: Vital Signs Temperature 99.5 F 04/13/18 06:00 Pulse Rate 78 04/13/18 06:00 Respiratory Rate 20 04/13/18 06:00 Blood Pressure 150/73 04/13/18 06:00 O2 Sat by Pulse Oximetry (%) 96 04/12/18 09:00 Constitutional: Yes: Calm Eyes: Yes: Conjunctiva Clear Cardiovascular: Yes: S1, S2 Respiratory: Yes: CTA Bilaterally Gastrointestinal: Yes: Soft, Other (dressing in place) Genitourinary: Yes: WNL Musculoskeletal: Yes: WNL Edema: No Neurological: Yes: Oriented Psychiatric: Yes: Oriented Labs: CBC, BMP 04/13/18 09:35 04/13/18 09:35 INR, PTT INR 1.51 (0.83-1.09) H 04/02/18 10:40 Problem List - Problems (1) Acute kidney failure Code(s): N17.9 - ACUTE KIDNEY FAILURE, UNSPECIFIED Assessment/Plan Current Medications Generic Name Dose Route Start Last Admin Trade Name Freq PRN Reason Stop Dose Admin Acetaminophen 650 mg 04/11/18 20:15 04/13/18 10:30 Tylenol - PO 650 mg Q4H PRN Administration PAIN LEVEL 1-5 Atorvastatin Calcium 20 mg 04/09/18 22:00 04/12/18 22:03 Lipitor - PO 20 mg HS MARY JANE Administration Calcium/Vitamin D 1 tab 04/09/18 16:30 04/13/18 10:30 Oscal 250 Mg+D - PO 1 tab DAILY MARY JANE Administration Heparin Sodium (Porcine) 5,000 unit 04/07/18 22:00 04/13/18 13:25 Heparin - SQ 5,000 unit TID MARY JANE Administration Levothyroxine Sodium 50 mcg 04/09/18 09:15 04/13/18 06:08 Synthroid - PO 50 mcg DAILY@0700 MARY JANE Administration Magnesium Oxide 400 mg 04/12/18 10:00 04/13/18 10:30 Mag-Ox - PO 400 mg BID MARY JANE Administration Melatonin 1 mg 04/11/18 22:00 04/12/18 22:02 Melatonin PO 1 mg HS MARY JANE Administration Metoprolol Succinate 25 mg 04/08/18 10:00 04/13/18 10:31 Toprol Xl - PO 25 mg DAILY MARY JANE Administration Metoprolol Tartrate 5 mg 04/07/18 18:20 Lopressor Injection - IVPUSH Q4H PRN HYPERTENSION Morphine Sulfate 4 mg 04/07/18 18:20 04/12/18 22:07 Morphine Sulfate IVPUSH 4 mg Q4H PRN Administration PAIN LEVEL 6-10 Nystatin 1 applic 04/08/18 10:00 04/13/18 10:33 Nystop Powder - TP 1 applic DAILY MARY JANE Administration Pantoprazole Sodium 40 mg 04/09/18 10:00 04/13/18 10:30 Protonix - PO 40 mg DAILY MARY JANE Administration Saliva Substitute 1 applic 04/08/18 10:00 04/13/18 11:10 Mouthkote Solution - MM Not Given DAILY MARY JANE Sertraline HCl 50 mg 04/09/18 10:00 04/13/18 10:30 Zoloft - PO 50 mg DAILY MARY JANE Administration Impression 1. MARKIE 2. resp failure 3. sepsis 4. perforated diverticula 5. acidosis 6. s/p ex-lap/SOPHIE/Bess's Procedure/Abdominal Washout 7. CAD 8. HTN 9. Hyperlipidemia 10. Anemia 11. hypernatremia Plan - pt is stable off of fluids - pt tolerating diet - monitor renal function - monitor lytes - likely resolving ATN - will follow PRN Dr Perdomo
[2018-04-13 14:41] VITALS: BP 125/58; PULSE 71; TEMP 98.7
--- NOTE | 2018-04-13 15:00 | PN ---
Progress Note (short form) - Note Progress Note: s/p ex lap andHartman's procedure- perforated diverticulitis, perforated sigmoid colon, multiple abscesses-04/03/18 kevin is out drains are out Vital Signs Period Temp Pulse Resp BP Sys/Andrews Pulse Ox Last 24 Hr 98.0 F-99.5 F 71-91 17-20 120-150/58-77 cor-rrr lungs clear abd soft, packing in place +ostomy function ext no edema CBC, BMP 04/13/18 09:35 04/13/18 09:35 Microbiology 04/10/18 13:50 Wound-Other Clostridium difficile (PCR) - Final 04/02/18 22:30 Blood - Peripheral Venous Blood Culture - Final NO GROWTH AFTER 5 DAYS INCUBATION 04/02/18 22:25 Blood - Peripheral Venous Blood Culture - Final NO GROWTH AFTER 5 DAYS INCUBATION 04/03/18 13:05 Peritoneal Fluid Gram Stain - Final 04/03/18 13:05 Peritoneal Fluid Body Fluid Culture - Final Escherichia Coli#2 Beta Hem Streptococcus Group F Gemella Morbillorum 04/03/18 13:05 Peritoneal Fluid Anaerobic Culture - Final Bacteroides Fragilis 04/02/18 23:05 Urine - Urine - Catheterized Urine Culture - Final NO GROWTH OBTAINED imp/reccd s/p drainage of intrabdominal aabscess- s/p ex lap and Hartmans procedure- perforated diverticulitis(surgery 04/03) Acute renal failure-improved metabolic acidosis resolved anemia stable off antibiotics please call back if needed Problem List - Problems (1) Intra-abdominal abscess Code(s): K65.1 - PERITONEAL ABSCESS (2) Acute kidney failure Code(s): N17.9 - ACUTE KIDNEY FAILURE, UNSPECIFIED
--- NOTE | 2018-05-20 13:27 | OP ---
DATE OF OPERATION: 04/03/2018 PREOPERATIVE DIAGNOSIS: Perforated diverticulitis, multiple abscesses. POSTOPERATIVE DIAGNOSIS: Perforated diverticulitis, multiple abscesses. PROCEDURE: Exploratory laparotomy, lysis of adhesions, Anthony procedure, drainage and irrigation of multiple abscesses. FINDINGS: Perforated diverticulitis, multiple interloop as well as large abscesses. SURGEON: MD Ofelia SHINGLES ROOFER HELPER: BECKY Rome ANESTHESIA: General. SPECIMENS: Rectosigmoid. BLOOD LOSS: 150 mL DRAINS: Two Paddy-Coyle drains were placed. CONDITION: Patient tolerated the procedure well. INDICATIONS: This is a 77-year-old female with long history of diverticular disease who presents with a week-long history of abdominal pain and fever, who presented to the emergency room where an evaluation with CT scan showed large intraabdominal and pelvic abscesses with perforation of what appears to be the sigmoid colon consistent with perforated diverticulitis. Given the patients clinical setting of septic shock, a decision was made to take this patient urgently to the operating room for an exploratory laparotomy. She was transferred from the intensive care unit, pressors, and taken to the operating room for urgent exploration. Informed consent was obtained from the family. DESCRIPTION OF PROCEDURE: In the operating room, she was placed in supine position. After the induction of general anesthesia, she was prepped and draped in the usual sterile fashion. A midline incision was then performed with a scalpel and carried through subcutaneous tissue using cautery. The peritoneal cavity was entered directly using sharp dissection with cautery as well as a scalpel. Upon entering the pelvis, clear large abscess cavity was noted and evacuated and cultures were obtained. Evacuation of the abscesses was performed. Multiple adhesions of the small bowel were encountered and multiple interloop abscesses into the mesentery were encountered. All evacuated carefully, taking care to avoid injury to the small bowel or the colon upon identifying and releasing all the abscess cavities. Then, at this point, the sigmoid colon was identified. It was released along with the white line of Toldt, and mobilized medially. The midpoint of the sigmoid colon just proximal to the areas of perforation was divided with Endo MARLON stapler, and the mesentery was then mobilized with use of the vessel sealer LigaSure. Care was taken to identify the left ureter, which was followed into the pelvic rim, and mesentery was then mobilized medial from the structures. Care was taken to avoid injury to the iliac vessels, as well, and the mesentery was then mobilized medially all the way into the pelvic rim. The anterior pronator reflection was identified, and at this point, the mesorectum was mobilized to this level, and then, it was divided with a TA 75. The rectum was then divided proximal to that with a scalpel, and two Prolene sutures were then placed along the staple line for further identification in the future. At this point, then, the peritoneal cavity was irrigated and suctioned copiously with approximately 6 L of warm saline, and hemostasis was then achieved using cautery and several sutures of 3-0 Vicryl, and at this point upon successful hemostasis, a decision was made to bring out the colostomy, which was done through a cruciate incision left lower quadrant. Core of subcutaneous adipose tissues was removed with the incision. The fascia was entered in a cruciate fashion over the rectus sheath, and the peritoneal cavity was entered. Allen was used to then bring out the proximal end of the sigmoid colon, and care was taken to make sure that the space was appropriate, larger than 2 fingers and easily fit the colon through this without causing any injury or ischemia. Three total sutures of 0 Vicryl were then placed to secure the sigmoid colon to the fascia, and then, at this point, 2 Paddy-Coyle drains were placed, 1 in the left gutter and 1 in the pelvis, and these were secured to the skin with 2-0 silk sutures. The midline wound was then closed using No. 1 PDS double-stranded in a running fashion. When this was complete, the skin was left open and packed with Iodoform gauze. The colostomy was then, the staple line was removed to the [place] scissors, bleeding was controlled with cautery, and it was then matured to the skin using 3-0 and 4-0 Vicryl sutures in interrupted fashion. Once complete, the digital examination with fluoroscopy was performed to make sure the fascial deep negotiated without difficulty, and at this point, ostomy appliances applied, sterile dressings were applied, and the patient was returned to the recovery room awake, alert, and in stable condition. She tolerated the procedure well. DEEPAK BRAND M.D. [id number]
== END 2018-04-13 18:29 | DRG 853 ==
LOC: JER 21:47 → JERBED 04-03 02:51 → JICU 04-03 05:54 → J8W 04-07 18:26
PROVIDERS: ADMIT Internal Medicine; ATTEND Nurse Practitioner Family
PROC: 0WJG0ZZ Inspection of Peritoneal Cavity, Open Approach (ICD-10-PCS; 2018-04-03)
PROC: 0W9G0ZX Drainage of Peritoneal Cavity, Open Approach, Diagnostic (ICD-10-PCS; 2018-04-03)
PROC: 0D1N0Z4 Bypass Sigmoid Colon to Cutaneous, Open Approach (ICD-10-PCS; 2018-04-03)
PROC: 5A1945Z Respiratory Ventilation, 24-96 Consecutive Hours (ICD-10-PCS; 2018-04-03)
PROC: 0BH17EZ Insertion of Endotracheal Airway into Trachea, Via Natural or Artificial Opening (ICD-10-PCS; 2018-04-03)
PROC: 30233N1 Transfusion of Nonautologous Red Blood Cells into Peripheral Vein, Percutaneous Approach (ICD-10-PCS; 2018-04-03)
PROC: 05HM33Z Insertion of Infusion Device into Right Internal Jugular Vein, Percutaneous Approach (ICD-10-PCS; 2018-04-03)
PROC: 0DTG0ZZ Resection of Left Large Intestine, Open Approach (ICD-10-PCS; principal; 2018-04-03 12:00)
DX: A41.9 Sepsis, unspecified organism (principal); K63.1 Perforation of intestine (nontraumatic); K65.1 Peritoneal abscess; R65.21 Severe sepsis with septic shock; J96.01 Acute respiratory failure with hypoxia; N17.0 Acute kidney failure with tubular necrosis; G93.41 Metabolic encephalopathy; E87.2 Acidosis; G93.40 Encephalopathy, unspecified; E87.0 Hyperosmolality and hypernatremia; I25.10 Atherosclerotic heart disease of native coronary artery without angina pectoris; I10 Essential (primary) hypertension; D64.9 Anemia, unspecified; E78.5 Hyperlipidemia, unspecified; E86.0 Dehydration; K21.9 Gastro-esophageal reflux disease without esophagitis; E87.6 Hypokalemia; E83.51 Hypocalcemia; E83.42 Hypomagnesemia; F41.8 Other specified anxiety disorders; Z95.1 Presence of aortocoronary bypass graft; E03.9 Hypothyroidism, unspecified; E66.9 Obesity, unspecified; Z68.33 Body mass index [BMI] 33.0-33.9, adult; R33.9 Retention of urine, unspecified; R41.82 Altered mental status, unspecified; E87.5 Hyperkalemia
CPT/HCPCS: 31500; 36415; 36430; 36600; 70450-TC; 71045-TC-FY; 74176-TC; 80048; 80053; 81003; 81015; 82040; 82272; 82550; 82553; 82607; 82728; 82746; 82803; 82962; 83010; 83540; 83550; 83605; 83615; 83690; 83735; 83880; 84100; 84443; 84484; 85025; 85044; 85610; 86850; 86900; 86901; 86922; 87040; 87070; 87075; 87076; 87077; 87086; 87186; 87205; 87493; 87899; 88307-TC; 93005; 93010; 94002; 94640; 97116-GP; 97163-GP; 99283-25; J0131; J1644; J7030; P9038; P9058

== ENCOUNTER 2018-08-09 09:28 | Inpatient (IN) | payer OTHER ==
--- NOTE | 2018-08-09 10:42 | PDOC ---
History of Present Illness - General Chief Complaint: Pain, Acute Stated Complaint: ABD PAIN Time Seen by Provider: 08/09/18 10:42 History Source: Patient Exam Limitations: No Limitations Past History - Travel Traveled outside of the country in the last 30 days: No Close contact w/someone who was outside of country & ill: No - Past Medical History Allergies/Adverse Reactions: Allergies Allergy/AdvReac Type Severity Reaction Status Date / Time No Known Allergies Allergy Verified 04/02/18 21:59 Home Medications: Ambulatory Orders Albuterol 0.083% Nebulizer Nanette [Ventolin 0.083%] 1 neb NEB QID PRN 08/09/18 Atorvastatin Calcium [Lipitor] 20 mg PO HS 08/09/18 Calcium Citrate 250 mg PO DAILY 08/09/18 Diazepam [Valium] 5 mg PO DAILY 08/09/18 Fenofibrate Nanocrystallized [Fenofibrate] 145 mg PO DAILY 08/09/18 Hydrochlorothiazide [Hctz -] 12.5 mg PO DAILY 08/09/18 Levothyroxine Sodium [Levoxyl] 50 mcg PO DAILY 08/09/18 Magnesium Oxide [Magnesium] 400 mg PO DAILY 08/09/18 Metoprolol Succinate [Toprol Xl] 25 mg PO DAILY 08/09/18 Olmesartan Medoxomil [Benicar (Nf)] 20 mg PO DAILY 08/09/18 Ondansetron [Ondansetron Odt] 4 mg SL QID PRN 08/09/18 Polyvinyl Alcohol [Artificial Tears] 1 drop OD BID 08/09/18 Ranitidine [Zantac -] 300 mg PO HS 08/09/18 Sertraline HCl [Zoloft -] 50 mg PO DAILY 08/09/18 Zolpidem Tartrate [Ambien] 10 mg PO HS 08/09/18 Cardiac Disorders: Yes (cabg x 4) COPD: No GI Disorders: Yes (GERD) HTN: Yes Hypercholesterolemia: Yes Psychiatric Problems: Yes (ANXIETY) Thyroid Disease: Yes (HYPO) - Surgical History Abdominal Surgery: Yes (colostomy s/p perf diverticula) - Suicide/Smoking/Psychosocial Hx Smoking History: Never smoked Have you smoked in the past 12 months: No Number of Cigarettes Smoked Daily: 20 Hx Alcohol Use: No Drug/Substance Use Hx: No Hx Substance Use Treatment: No Review of Systems - Review of Systems Able to Perform ROS?: Yes Is the patient limited Malay proficient: No Constitutional: Yes: Weight Stable. No: Chills, Diaphoresis, Fever, Loss of Appetite, Malaise, Weakness HEENTM: No: Blurred Vision, Double Vision, Nose Congestion, Throat Pain, Throat Swelling, Mouth Swelling Respiratory: No: Cough, Orthopnea, Shortness of Breath Cardiac (ROS): No: Chest Pain, Edema, Irregular Heart Rate, Lightheadedness, Palpitations, Syncope, Chest Tightness ABD/GI: Yes: See HPI, Diarrhea, Nausea, Poor Appetite, Poor Fluid Intake, Indigestion, Abdominal cramping. No: Abdominal Distended, Constipated, Rectal Bleeding, Vomiting : No: Burning, Dysuria, Frequency, Flank Pain, Pain, Urgency Musculoskeletal: No: Back Pain, Joint Pain, Muscle Weakness Integumentary: No: Dryness, Rash Neurological: No: Headache, Numbness, Weakness, Unsteady Gait (ambulates with walker), Dizziness Psychiatric: No: Sleep Pattern Change, Change in Appetite Endocrine: No: Increased Urine, Change in Weight Hematologic/Lymphatic: Yes: Anemia. No: Blood Clots, Easy Bleeding, Easy Bruising All Other Systems: Reviewed and Negative *Physical Exam - Vital Signs Last Vital Signs Temp Pulse Resp BP Pulse Ox 98 F 73 18 118/50 L 97 08/09/18 09:30 08/09/18 09:30 08/09/18 09:30 08/09/18 09:30 08/09/18 09:30 - Physical Exam Comments: Vitals stable, pt afebrile. Pt in NAD, normal body habitus. Pt alert and oriented x3. e commerce manager generally intact, muscular strength and sensation intact. No midline spinal tenderness, step-offs, or crepitus. Head normocephalic, atraumatic. Eyes PERRLA, EOMI. Oropharynx without erythema or exudates, no LAD b/l. No nasal congestion, hearing intact. Clear heart sounds, S1/S2, no JVD, b/l pedal edema, or heart murmur. Clear lung sounds, no respiratory distress, wheezes, crackles, or accessory muscle use. No abdominal or CVA tenderness to palpation, no rebound, no guarding. Abdomen soft, non-distended, and with normoactive bowel sounds. Skin without jaundice or rash. 08/09/18 10:43 ED Treatment Course - LABORATORY CBC & Chemistry Diagram: 08/09/18 11:00 08/09/18 11:00 Medical Decision Making - Medical Decision Making Pt was seen at bedside, also will be seen by attending Dr. Bermeo. Pt presenting with complaints of diffuse upper abdominal pain x3 days, which worsened since last night. Pt states retirement staff provided her mylanta with minimal relief. Pt has also had a few loose stools over the past week, but has not been on any recent abx. Considering SBO vs repeat perforation/abscess vs diverticulitis vs reflux/GERD vs ischemic colitis vs infectious (colitis, C diff, UTI). Will eval for infectious work-up, x-ray and CT scan for repeated perf, SBO. Ordered work-up including CBC, CMP, lactic, lipase, Mg, Phos, cardiac profile, ECG, chest x-ray, and will obtain abdominal CT scan . Pending CMP before IV contrast for CT. Provided 1 L IV NS, 20 mg IV pepcid, and 4 mg IV zofran for improvement of nausea and abdominal discomfort. Will continue to reassess pt and monitor for symptomatic improvement. 08/09/18 10:43 Chest x-ray with no acute pathology. CBC: H/H 9.2/28 (pt baseline) CMP: K 6.5, BUN 43, Cr 2.6 -- providing glucose, insulin, albuterol, and IVF; no ECG changes Trop <.02 Mg 2.[address] scan. 08/09/18 13:[address] 08/09/18 15:20 CT Abd/Pelvis IMPRESSION: No CT evidence of bowel obstruction. In comparison to a prior CT exam of 04/03/2018 interval resection/resolution of a large pelvic fluid collection is seen. Note is also made of interval left lower quadrant ostomy. 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 On the current exam minimal to mild pericolonic soft tissue stranding is seen within the left mid pelvis - representing postsurgical and/or chronic inflammatory changes versus representing new inflammatory change. Correlate clinically and with follow-up CT. Cholelithiasis. Stable benign 1.3 cm left adrenal nodule very likely representing an adenoma. Biochemical evaluation is suggested. 08/09/18 15:24 *DC/Admit/Observation/Transfer Diagnosis at time of Disposition: MARKIE (acute kidney injury), Hyperkalemia, Status post Anthony's procedure Abdominal pain Qualifiers: Abdominal location: upper abdomen, unspecified Qualified Code(s): R10.10 - Upper abdominal pain, unspecified - Referrals Referrals: Santino Mendieta MD [Primary Care Provider] - - Patient Instructions - Post Discharge Activity
[2018-08-09] MEDS ORDERED: ACETAMINOPHEN 1000 MG/100 ML VIAL (NON FORMULARY) IVPB ONE (10:54)
[2018-08-09] MEDS ORDERED: ONDANSETRON 4 MG/2 ML VIAL IVPUSH ONE (11:13)
[2018-08-09] MEDS ORDERED: FAMOTIDINE 20 MG/50 ML IVPB 20 MG/50 ML MG IVPB ONE ×2 (11:13→11:33)
[2018-08-09] MEDS ORDERED: ACETAMINOPHEN INJECTION 100 ML IVPB ONE (11:32)
[2018-08-09] MEDS ORDERED: ONDANSETRON 4 MG/2 ML VIAL ONE (11:33)
[2018-08-09 11:50] LABS: INR 1.13 (0.83-1.09); PROTHROMBIN TIME (PATIENT) 13.3 SEC (9.7-13.0)
[2018-08-09 11:52] LABS: BASO % 0.2 % (0-2.0); EOS % 1.2 % (0-4.5); HEMOGLOBIN 9.2 GM/dL (10.7-15.3); LYMPH % 22.4 % (8-40); MCH 29.9 pg (25.7-33.7); MCHC 32.7 g/dl (32.0-36.0); MEAN CELL VOLUME 91.4 fl (80-96); MEAN PLT VOLUME 8.1 fl (7.5-11.1); MONO % 9.2 % (3.8-10.2); PLATELET COUNT 328 K/MM3 (134-434); RBC 3.07 M/mm3 (3.60-5.2); RDW 12.8 % (11.6-15.6); WHITE BLOOD COUNT 9.4 K/mm3 (4.0-10.0)
--- NOTE | 2018-08-09 12:12 | PDOC ---
Documentation entered by Liat Garcia SCRIBE, acting as scribe for Latrice Bermeo MD. Latrice Bermeo MD: This documentation has been prepared by the Radha dillon Nirvannie, SCRIBE, under my direction and personally reviewed by me in its entirety. I confirm that the documentation accurately reflects all work, treatment, procedures, and medical decision making performed by me. Attending Attestation - Resident Resident Name: MarcellaErica - ED Attending Attestation I have performed the following: I have examined & evaluated the patient, The case was reviewed & discussed with the resident, I agree w/resident's findings & plan, Exceptions are as noted - HPI HPI: 08/09/18 11:59 The patient is a 77 year old female, with a significant past medical history of 2 intra-abdominal abscesses/diverticulitis (s/p Anthony procedure), quadruple cardiac bypass, HLD, hypothyroidism, HTN, GERD, and anxiety, who presents to the emergency department with, 3 days of worsening upper abdominal pain with nausea and decreased passing of gas. Patient endorses being given Mylanta at DC without relief. She denies any recent chest pain or shortness of breath. Allergies: NKDA Primary Care Physician: Dr. Mendieta - Physicial Exam PE: GENERAL: Awake, alert, and fully oriented. +Pallor. Appears ill but nontoxic HEAD: No signs of trauma EYES: PERRLA, EOMI, sclera anicteric, conjunctiva clear ENT: Auricles normal inspection, hearing grossly normal, nares patent, oropharynx clear without exudates. Dry mucosa NECK: Normal ROM, supple, no lymphadenopathy, JVD, or masses LUNGS: Breath sounds equal, clear to auscultation bilaterally. No wheezes, and no crackles HEART: Regular rate and rhythm, normal S1 and S2, no murmurs, rubs or gallops ABDOMEN: Soft, diffusely tender, +high pitched bowel sounds, +colostomy to L mid -abdomen, no gas/stool in the bag. +Guarding, no rebound. No masses EXTREMITIES: Normal range of motion, no edema. No clubbing or cyanosis. No cords, erythema, or tenderness NEUROLOGICAL: Cranial nerves II through XII grossly intact. Normal speech. Motor and sensation intact SKIN: Warm, Dry, normal turgor, no rashes or lesions noted. - Medical Decision Making 08/09/18 11:44 Pt with history of perforated diverticulitis, s/p Anthony's pouch and colostomy. Presents with abd pain, diffusely tender, with high pitched bowel sounds. Concerning for SBO. Will obtain labs, give analgesia, and plan for CT a/ p to further evaluate. 08/09/18 16:04 Case d/w Tammy Sandoval, covering Dr. Mendieta, who accepted patient for admission. I have contacted Dr. Perdomo for renal, as the patient has MARKIE with K 6.5. Awaiting callback. CT a/p shows no acute findings.
[2018-08-09 12:37] LABS: ALBUMIN 3.5 g/dl (3.4-5.0); ALK PHOS 77 U/L (45-117); ANION GAP 6 MMOL/L (8-16); BILIRUBIN,TOTAL 0.3 mg/dL (0.2-1); BLOOD UREA NITROGEN 43.9 mg/dL (7-18); CALCIUM 9.1 mg/dL (8.5-10.1); CHLORIDE 113 mmol/L (98-107); CO2 20 mmol/L (21-32); CREATININE 2.6 mg/dL (0.55-1.3); GLUCOSE,RANDOM 90 mg/dL (74-106); LIPASE 276 U/L (73-393); MAGNESIUM 2.6 mg/dL (1.8-2.4); SGOT/AST 36 U/L (15-37); SGPT/ALT 32 U/L (13-61); SODIUM 139 mmol/L (136-145); TOT PROT 7.7 g/dl (6.4-8.2)
[2018-08-09 12:58] LABS: POTASSIUM 6.5 mmol/L (3.5-5.1)
[2018-08-09] MEDS ORDERED: SODIUM CHLORIDE 1,000 ML IV STA (13:12)
[2018-08-09] MEDS ORDERED: INSULIN REGULAR HUMAN 100 UNITS/ML *VIAL IVPUSH ONE (13:16)
[2018-08-09] MEDS ORDERED: DEXTROSE 50%-WATER - 25 GM/50 ML VIAL IVPUSH ONE (13:16)
[2018-08-09] MEDS ORDERED: ALBUTEROL SO4 0.083% IH SOL 2.5 MG/3 ML VIAL.NEB. NEB ONE ×2 (13:17→14:52)
[2018-08-09] MEDS ORDERED: DEXTROSE 50%-WATER 25 GM/50 ML DISP.SYRIN ONE (14:52)
[2018-08-09] MEDS ORDERED: INSULIN REGULAR HUMAN 100 UNITS/ML *VIAL ONE (14:53)
[2018-08-09] MEDS ORDERED: SODIUM BICARBONATE 8.4% 50 MEQ/50 ML DISP.SYRIN IVPUSH ONE (16:04)
[2018-08-09] MEDS ORDERED: ALBUTEROL SO4 0.083% IH SOL 2.5 MG/3 ML VIAL.NEB. NEB PRN (16:06)
[2018-08-09] MEDS ORDERED: SODIUM BICARBONATE 8.4% 50 MEQ/50 ML VIAL ONE (16:15)
[2018-08-09] MEDS ORDERED: SODIUM CHLORIDE 1,000 ML IV SCH ×2 (17:00→20:42)
[2018-08-09 18:26] LABS: BLOOD UREA NITROGEN 42.4 mg/dL (7-18); CALCIUM 8.4 mg/dL (8.5-10.1); CREATININE 2.4 mg/dL (0.55-1.3); POTASSIUM 5.1 mmol/L (3.5-5.1)
--- NOTE | 2018-08-09 20:38 | CONSULT ---
Consult Consult Specialty:: Nephrology Reason for Consultation:: MARKIE and Hyperkalemia - History of Present Illness Chief Complaint: abdominal pain History of Present Illness: Pt is a 77 year old female with pmhx of MARKIE, intra abd abscess, cad, hld, htn, khushboo, hypothyroidism and anxiety who presents to the ER with abdominal pain. She says that she had the pain for three days. She also complains of increased flatus. She was found to be in acute renal failure and found to be hyperkalemic. She denies shortness of breath. She denies nsaid use. She denies fevers of chills. She denie dysuria or hematuria. - History Source History Provided By: Patient - Past Medical History Cardio/Vascular: Yes: CAD, HTN, Hyperlipdemia Renal/: Yes: Renal Failure Psych: Yes: Anxiety, Depression, Other Endocrine: Yes: Hypothyroidism - Past Surgical History Additional Surgical History: leigh procedure - Alcohol/Substance Use Hx Alcohol Use: No - Smoking History Smoking history: Never smoked Have you smoked in the past 12 months: No Aproximately how many cigarettes per day: 20 - Social History Usual Living Arrangement: Alone ADL: Independent History of Recent Travel: No Home Medications - Allergies Allergies/Adverse Reactions: Allergies Allergy/AdvReac Type Severity Reaction Status Date / Time No Known Allergies Allergy Verified 04/02/18 21:59 - Home Medications Home Medications: Ambulatory Orders Albuterol 0.083% Nebulizer Nanette [Ventolin 0.083%] 1 neb NEB QID PRN 08/09/18 Atorvastatin Calcium [Lipitor] 20 mg PO HS 08/09/18 Calcium Citrate 250 mg PO DAILY 08/09/18 Diazepam [Valium] 5 mg PO DAILY 08/09/18 Fenofibrate Nanocrystallized [Fenofibrate] 145 mg PO DAILY 08/09/18 Hydrochlorothiazide [Hctz -] 12.5 mg PO DAILY 08/09/18 Levothyroxine Sodium [Levoxyl] 50 mcg PO DAILY 08/09/18 Magnesium Oxide [Magnesium] 400 mg PO DAILY 08/09/18 Metoprolol Succinate [Toprol Xl] 25 mg PO DAILY 08/09/18 Olmesartan Medoxomil [Benicar (Nf)] 20 mg PO DAILY 08/09/18 Ondansetron [Ondansetron Odt] 4 mg SL QID PRN 08/09/18 Polyvinyl Alcohol [Artificial Tears] 1 drop OD BID 08/09/18 Ranitidine [Zantac -] 300 mg PO HS 08/09/18 Sertraline HCl [Zoloft -] 50 mg PO DAILY 08/09/18 Zolpidem Tartrate [Ambien] 10 mg PO HS 08/09/18 Family Disease History - Family Disease History Family History: Denies Review of Systems - Review of Systems Constitutional: reports: Malaise. denies: Chills Eyes: reports: No Symptoms HENT: reports: No Symptoms Neck: reports: No Symptoms Cardiovascular: reports: No Symptoms Respiratory: reports: No Symptoms Gastrointestinal: reports: Abdominal Pain, Bloating Genitourinary: reports: No Symptoms Musculoskeletal: reports: No Symptoms Integumentary: reports: No Symptoms Neurological: reports: No Symptoms Endocrine: reports: No Symptoms Hematology/Lymphatic: reports: No Symptoms Psychiatric: reports: No Symptoms Physical Exam Vital Signs: Vital Signs Temperature 98 F 08/09/18 09:30 Pulse Rate 84 08/09/18 16:05 Respiratory Rate 18 08/09/18 16:05 Blood Pressure 119/58 L 08/09/18 16:05 O2 Sat by Pulse Oximetry (%) 96 08/09/18 13:30 Constitutional: Yes: Calm Eyes: Yes: Conjunctiva Clear HENT: Yes: Atraumatic Neck: Yes: Supple Cardiovascular: Yes: S1, S2 Respiratory: Yes: CTA Bilaterally Gastrointestinal: Yes: Soft, Other (colostomy) Renal/: Yes: WNL Musculoskeletal: Yes: WNL Edema: No Neurological: Yes: Oriented Psychiatric: Yes: Oriented Labs: CBC, BMP 08/09/18 11:00 08/09/18 17:18 Laboratory Tests 04/13/18 08/09/18 08/09/18 09:35 11:00 11:00 Hgb 9.2 L Sodium 139 Potassium 6.5 H* Carbon Dioxide 20 L BUN Creatinine 1.3 2.6 H 08/09/18 17:18 Hgb Sodium 142 Potassium 5.1 Carbon Dioxide 20 L BUN 42.4 H Creatinine 2.4 H Imaging - Results Chest X-ray: Report Reviewed Problem List - Problems (1) MARKIE (acute kidney injury) Code(s): N17.9 - ACUTE KIDNEY FAILURE, UNSPECIFIED (2) Abdominal pain Code(s): R10.9 - UNSPECIFIED ABDOMINAL PAIN Qualifiers: Abdominal location: upper abdomen, unspecified Qualified Code(s): R10.10 - Upper abdominal pain, unspecified (3) Hyperkalemia Code(s): E87.5 - HYPERKALEMIA Assessment/Plan Current Medications Generic Name Dose Route Start Last Admin Trade Name Freq PRN Reason Stop Dose Admin Albuterol Sulfate 1 amp 08/09/18 16:06 Ventolin 0.083% Nebulizer Soln - NEB Q6H PRN SHORT OF BREATH/WHEEZING Artificial Tears 1 drop 08/09/18 22:00 Artificial Tears OD BID [facility] Atorvastatin Calcium 20 mg 08/09/18 22:00 Lipitor - PO HS [facility] Calcium/Vitamin D 1 tab 08/10/18 10:00 Oscal 250 Mg+D - PO DAILY [facility] Diazepam 5 mg 08/10/18 10:00 Valium - PO DAILY [facility] Fenofibric Acid 135 mg 08/10/18 10:00 Trilipix - PO DAILY [facility] Heparin Sodium (Porcine) 5,000 unit 08/09/18 22:00 Heparin - SQ BID [facility] Hydrochlorothiazide 12.5 mg 08/10/18 10:00 Hctz - PO DAILY [facility] Sodium Chloride 1,000 mls @ 125 mls/hr 08/09/18 17:00 08/09/18 18:12 Normal Saline - IV 125 mls/hr ASDIR [facility] Administration Levothyroxine Sodium 50 mcg 08/10/18 07:00 Synthroid - PO AM MARY JANE Magnesium Oxide 400 mg 08/10/18 10:00 Mag-Ox - PO DAILY [facility] Metoprolol Succinate 25 mg 08/10/18 10:00 Toprol Xl - PO DAILY [facility] Ondansetron HCl 4 mg 08/09/18 16:06 Zofran Odt - SL QID PRN NAUSEA Ranitidine HCl 300 mg 08/09/18 22:00 Zantac - PO HS [facility] Sertraline HCl 50 mg 08/10/18 10:00 Zoloft - PO DAILY [facility] Valsartan 160 mg 08/10/18 10:00 Diovan - PO DAILY [facility] Zolpidem Tartrate 5 mg 08/09/18 22:00 Ambien - PO HS PRN INSOMNIA Impression 1. MARKIE 2. hyperkalemia 3. abdominal pain 4. hx of perforated diverticula 5. acidosis 6. hld 7. CAD 8. HTN 9. anxiety 10. 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
--- NOTE | 2018-08-09 20:55 | CON.GI ---
Consult Consult Specialty:: Gastroenterology Referred by:: Dr Mendieta Reason for Consultation:: Abdominal pain - History of Present Illness Chief Complaint: Abdominal pain History of Present Illness: 77F developed periumbilical and epigastric pain that radiated into her chest and caused her to think that she was having a " heart attack". She underwent 4 vessel CABG at [facility] in 2016. She had nausea but no vomiting. She felt better after getting Mylanta and Zantac in the ER. The pain has not returned and she is hungry. She is s/p a Anthony procedure with partial rectosigmoid resection for perforated diverticulitis leading to sepsis on 04/[address] Bustamante. Her CT reveals no residual abscesses. A parasternal hernia was seen but she denies pain at her colostomy. Gallstones were also noted. She was followed by Dr Francisco Pennington in the past but never had an EGD or a colonoscopy. - History Source History Provided By: Patient Limitations to Obtaining History: No Limitations - Past Medical History Cardio/Vascular: Yes: CAD (s/p 4 vessel CABG in 2015), HTN, Hyperlipdemia Hepatobiliary: Yes: Cholelithiasis Renal/: Yes: Renal Failure Psych: Yes: Anxiety, Depression, Other Endocrine: Yes: Hypothyroidism - Past Surgical History Past Surgical History: Yes: CABG (4 vessel CABG at [facility] 2015), Colectomy (s/p partial colectomy ( 16cm) of rectosgmoid with colosotomy creation 04/03/18 Dr. 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year[place] age 27 History of Recent Travel: No Home Medications - Allergies Allergies/Adverse Reactions: Allergies Allergy/AdvReac Type Severity Reaction Status Date / Time No Known Allergies Allergy Verified 04/02/18 21:59 - Home Medications Home Medications: Ambulatory Orders Albuterol 0.083% Nebulizer Nanette [Ventolin 0.083%] 1 neb NEB QID PRN 08/09/18 Atorvastatin Calcium [Lipitor] 20 mg PO HS 08/09/18 Calcium Citrate 250 mg PO DAILY 08/09/18 Diazepam [Valium] 5 mg PO DAILY 08/09/18 Fenofibrate Nanocrystallized [Fenofibrate] 145 mg PO DAILY 08/09/18 Hydrochlorothiazide [Hctz -] 12.5 mg PO DAILY 08/09/18 Levothyroxine Sodium [Levoxyl] 50 mcg PO DAILY 08/09/18 Magnesium Oxide [Magnesium] 400 mg PO DAILY 08/09/18 Metoprolol Succinate [Toprol Xl] 25 mg PO DAILY 08/09/18 Olmesartan Medoxomil [Benicar (Nf)] 20 mg PO DAILY 08/09/18 Ondansetron [Ondansetron Odt] 4 mg SL QID PRN 08/09/18 Polyvinyl Alcohol [Artificial Tears] 1 drop OD BID 08/09/18 Ranitidine [Zantac -] 300 mg PO HS 08/09/18 Sertraline HCl [Zoloft -] 50 mg PO DAILY 08/09/18 Zolpidem Tartrate [Ambien] 10 mg PO HS 08/09/18 Family Disease History - Family Disease History Family Disease History: Other: Father ( 60 of "depression"), Mother ( 80 of "depression"), Brother (2 were killed at war) Review of Systems - Review of Systems Constitutional: reports: Weakness Eyes: reports: No Symptoms HENT: reports: No Symptoms Neck: reports: No Symptoms Cardiovascular: reports: No Symptoms Respiratory: reports: No Symptoms Gastrointestinal: reports: Abdominal Pain, Bloating, Nausea Musculoskeletal: reports: Joint Pain Physical Exam-GI Vital Signs: Vital Signs Temperature 98 F 08/09/18 09:30 Pulse Rate 84 08/09/18 16:05 Respiratory Rate 18 08/09/18 16:05 Blood Pressure 119/58 L 08/09/18 16:05 O2 Sat by Pulse Oximetry (%) 96 08/09/18 13:30 CBC,CMP WBC 9.4 K/mm3 (4.0-10.0) 08/09/18 11:00 RBC 3.07 M/mm3 (3.60-5.2) L 08/09/18 11:00 Hgb 9.2 GM/dL (10.7-15.3) L 08/09/18 11:00 Hct 28.0 % (32.4-45.2) L 08/09/18 11:00 MCV 91.4 fl (80-96) 08/09/18 11:00 MCH 29.9 pg (25.7-33.7) 08/09/18 11:00 MCHC 32.7 g/dl (32.0-36.0) 08/09/18 11:00 RDW 12.8 % (11.6-15.6) D 08/09/18 11:00 Plt Count 328 K/MM3 (134-434) 08/09/18 11:00 MPV 8.1 fl (7.5-11.1) 08/09/18 11:00 Absolute Neuts (auto) 6.3 K/mm3 (1.5-8.0) 08/09/18 11:00 Neutrophils % 67.0 % (42.8-82.8) 08/09/18 11:00 Lymphocytes % 22.4 % (8-40) D 08/09/18 11:00 Monocytes % 9.2 % (3.8-10.2) 08/09/18 11:00 Eosinophils % 1.2 % (0-4.5) 08/09/18 11:00 Basophils % 0.2 % (0-2.0) 08/09/18 11:00 Nucleated RBC % 0 % (0-0) 08/09/18 11:00 Sodium 142 mmol/L (136-145) 08/09/18 17:18 Potassium 5.1 mmol/L (3.5-5.1) 08/09/18 17:18 Chloride 116 mmol/L (98-107) H 08/09/18 17:18 Carbon Dioxide 20 mmol/L (21-32) L 08/09/18 17:18 Anion Gap 7 MMOL/L (8-16) L 08/09/18 17:18 BUN 42.4 mg/dL (7-18) H 08/09/18 17:18 Creatinine 2.4 mg/dL (0.55-1.3) H 08/09/18 17:18 Est GFR (CKD-EPI)AfAm 22.15 08/09/18 17:18 Est GFR (CKD-EPI)NonAf 19.11 08/09/18 17:18 POC Glucometer 88 UNITS (80-120) 08/09/18 17:30 Random Glucose 91 mg/dL (74-106) 08/09/18 17:18 Lactic Acid 0.5 mmol/L (0.4-2.0) 08/09/18 11:00 Calcium 8.4 mg/dL (8.5-10.1) L 08/09/18 17:18 Phosphorus 4.0 mg/dL (2.5-4.9) 08/09/18 11:00 Magnesium 2.6 mg/dL (1.8-2.4) H 08/09/18 11:00 Total Bilirubin 0.3 mg/dL (0.2-1) 08/09/18 11:00 AST 36 U/L (15-37) 08/09/18 11:00 ALT 32 U/L (13-61) 08/09/18 11:00 Alkaline Phosphatase 77 U/L (45-117) 08/09/18 11:00 Creatine Kinase 44 U/L (26-192) 08/09/18 11:00 Troponin I < 0.02 ng/ml (0.00-0.05) 08/09/18 11:00 Total Protein 7.7 g/dl (6.4-8.2) 08/09/18 11:00 Albumin 3.5 g/dl (3.4-5.0) 08/09/18 11:00 Lipase 276 U/L (73-393) 08/09/18 11:00 Current Medications Generic Name Dose Route Start Last Admin Trade Name Freq PRN Reason Stop Dose Admin Albuterol Sulfate 1 amp 08/09/18 16:06 Ventolin 0.083% Nebulizer Soln - NEB Q6H PRN SHORT OF BREATH/WHEEZING Artificial Tears 1 drop 08/09/18 22:00 Artificial Tears OD BID [facility] Atorvastatin Calcium 20 mg 08/09/18 22:00 Lipitor - PO HS MARY JANE Calcium/Vitamin D 1 tab 08/10/18 10:00 Oscal 250 Mg+D - PO DAILY MARY JANE Diazepam 5 mg 08/10/18 10:00 Valium - PO DAILY MARY JANE Fenofibric Acid 135 mg 08/10/18 10:00 Trilipix - PO DAILY MARY JANE Heparin Sodium (Porcine) 5,000 unit 08/09/18 22:00 Heparin - SQ BID MARY JANE Sodium Chloride 1,000 mls @ 75 mls/hr 08/09/18 20:42 Normal Saline - IV ASDIR MARY JANE Levothyroxine Sodium 50 mcg 08/10/18 07:00 Synthroid - PO AM MARY JANE Magnesium Oxide 400 mg 08/10/18 10:00 Mag-Ox - PO DAILY MARY JANE Metoprolol Succinate 25 mg 08/10/18 10:00 Toprol Xl - PO DAILY MARY JANE Ondansetron HCl 4 mg 08/09/18 16:06 Zofran Odt - SL QID PRN NAUSEA Ranitidine HCl 300 mg 08/09/18 22:00 Zantac - PO HS MARY JANE Sertraline HCl 50 mg 08/10/18 10:00 Zoloft - PO DAILY MARY JANE Zolpidem Tartrate 5 mg 08/09/18 22:00 Ambien - PO HS PRN INSOMNIA Constitutional: Yes: Calm Eyes: Yes: Conjunctiva Clear HENT: Yes: Atraumatic Neck: Yes: Trachea Midline Cardiovascular: Yes: Regular Rate and Rhythm, Other (healed median sternotomy incision) Respiratory: Yes: CTA Bilaterally Gastrointestinal Inspection: Yes: Scars (vrtical lower midline incision with functional LLQ colostomy with nontender hernia) ...Auscultate: Yes: Normoactive Bowel Sounds ...Palpate: Yes: Soft, Other (nontneder) ...Percussion: Yes: Tympanitic ...Rectal Exam: Yes: Deferred (has colostomy) Labs: CBC, BMP 08/09/18 11:00 08/09/18 17:18 INR, PTT INR 1.13 (0.83-1.09) H 08/09/18 11:00 Laboratory Tests 08/09/18 08/09/18 08/09/18 11:00 11:00 17:18 Potassium 6.5 H* 5.1 Anion Gap 6 L BUN 43.9 H 42.4 H Creatinine 2.6 H 2.4 H Lactic Acid 0.5 Imaging - Results Cat Scan: Report Reviewed ( Final Report CT ABDOMEN & PELVIS CT W/O CONTR Show Printer-Friendly Version Patient Name: Latrice Gan : 1940 ID: [id number] Study Date: 09-Aug-2018 13:51 Velia Andujar Name: LATRICE GAN DEPARTMENT OF RADIOLOGY Phys: Erica Parham RESIDENT : 1940 Age: 77 Sex: F [facility] Acct: [id number] Loc: [facility] Exam Date: 08/09/18 Status: ALICJA [place] [id number] Unit Number: [id number] EXAM#: TYPE/EXAM: RESULT: CT/ABDOMEN PELVIS CT W/O CONTR Abdomen and pelvis CT without contrast Clinical information given : upper abdominal pain, nausea, evaluate for small bowel obstruction; perforated sigmoid 04/2018 Multiplanar imaging was performed. As requested no intravenous or enteric contrast was administered. No evidence of pneumoperitoneum, free fluid, abscess or bowel obstruction. There is no gastric distention. No gross noncontrast small bowel abnormality is seen. Minimal to mild pericolonic soft tissue stranding is seen within the left mid pelvis which may be due to prior inflammation versus representing acute inflammatory change. In comparison to a prior CT study of 04/03/2018 note is made of interval resection/resolution of a large pelvic fluid collection as well as interval left lower quadrant ostomy. A parastomal hernia is noted. Interval resolution of diffuse hepatic steatosis is noted. The remainder of the exam demonstrates no obvious interval change. Cholelithiasis. Colonic diverticulosis. The appendix appears unremarkable. Stable 1.3 cm left adrenal nodule. This finding is also unchanged in comparison to a more remote CT study of 09/11/2007. The spleen, pancreas, right adrenal gland and kidneys demonstrate no discrete noncontrast pathology. There is no aortic aneurysm. No obvious lymphadenopathy is identified. Grade 2 L4-L5 degenerative spondylolisthesis with associated marked L4-L5 degenerative disc space narrowing IMPRESSION: No CT evidence of bowel obstruction. In comparison to a prior CT exam of 04/03/2018 interval resection/resolution of a large pelvic fluid collection is seen. Note is also made of interval left lower quadrant ostomy. 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 On the current exam minimal to mild pericolonic soft tissue stranding is seen within the left mid pelvis - representing postsurgical and/or chronic inflammatory changes versus representing new inflammatory change. Correlate clinically and with follow-up CT. Cholelithiasis. Stable benign 1.3 cm left adrenal nodule very likely representing an adenoma. Biochemical evaluation is suggested. Reported By: Malik Mac MD 08/09/181521 ERICA PARHAM Technologist: Reese Mendoza Transcribed Date/Time: 08/09/181521 Geological Engineer : Malik Mac Printed Date/Time: By: Signed by: Malik Mac Signed on: 09-Aug-2018 15:22) Problem List - Problems (1) Diverticulosis Code(s): K57.90 - DVRTCLOS OF INTEST, PART UNSP, W/O PERF OR ABSCESS W/O BLEED (2) Colostomy in place Code(s): Z93.3 - COLOSTOMY STATUS (3) Abdominal pain Code(s): R10.9 - UNSPECIFIED ABDOMINAL PAIN Qualifiers: Abdominal location: upper abdomen, unspecified Qualified Code(s): R10.10 - Upper abdominal pain, unspecified (4) Hyperkalemia Code(s): E87.5 - HYPERKALEMIA (5) Status post Anthony's procedure Code(s): Z93.3 - COLOSTOMY STATUS (6) Depression with anxiety Code(s): F41.8 - OTHER SPECIFIED ANXIETY DISORDERS (7) HLD (hyperlipidemia) Code(s): E78.5 - HYPERLIPIDEMIA, UNSPECIFIED (8) HTN (hypertension) Code(s): I10 - ESSENTIAL (PRIMARY) HYPERTENSION Qualifiers: Hypertension type: essential hypertension Qualified Code(s): I10 - Essential (primary) hypertension (9) Hypothyroidism Code(s): E03.9 - HYPOTHYROIDISM, UNSPECIFIED Qualifiers: Hypothyroidism type: acquired Qualified Code(s): E03.9 - Hypothyroidism, unspecified Assessment/Plan Impression: - Given the rapid resolution of pain I suspect that she may have had a transient SBO leading to nausea and inability to eat which led to decreased oral intake and prerenal azotemia with hyperkalemia - 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 Plan: Continue IV resuscitation Diet can be advanced Latrice has declined colonoscopy for cancer screening and EGD to exclude an ulcer. Continue empiric PPI therapy Consult Dr Parada to evaluate colostomy hernia and to consider reversal of the colostomy If pain recurs will pursue ECT enterography
[2018-08-09] MEDS: HEPARIN NA (PORCINE) 5,000 UNITS/ML 1ML VIAL SQ SCH (21:48)
[2018-08-09] MEDS: ATORVASTATIN CA 20 MG TABLET (FP) PO SCH (21:49)
[2018-08-09] MEDS ORDERED: RANITIDINE HCL 150 MG TABLET (FP) PO SCH (22:00)
[2018-08-09] MEDS: ZOLPIDEM TARTRATE 5 MG TABLET PO PRN (22:06)
[2018-08-09] MEDS: ARTIFICIAL TEARS (POLYVINYL ALCOHOL) OPTH DROPS OD SCH (22:46)
[2018-08-10] MEDS: ONDANSETRON *ODT* 4 MG TABLET SL PRN ×2 (05:16→13:22)
[2018-08-10] MEDS: LEVOTHYROXINE NA 50 MCG TABLET (FP) PO SCH (07:03)
[2018-08-10 08:05] LABS: ALK PHOS 66 U/L (45-117); AMYLASE 109 U/L (25-115); ANION GAP 5 MMOL/L (8-16); BILIRUBIN,TOTAL 0.2 mg/dL (0.2-1); BLOOD UREA NITROGEN 35.2 mg/dL (7-18); CALCIUM 8.6 mg/dL (8.5-10.1); CHLORIDE 113 mmol/L (98-107); CO2 23 mmol/L (21-32); CREATININE 2.4 mg/dL (0.55-1.3); GLUCOSE,RANDOM 112 mg/dL (74-106); LIPASE 257 U/L (73-393); MAGNESIUM 2.5 mg/dL (1.8-2.4); PHOSPHOROUS 4.4 mg/dL (2.5-4.9); POTASSIUM 5.7 mmol/L (3.5-5.1); SGOT/AST 27 U/L (15-37); SGPT/ALT 24 U/L (13-61); SODIUM 141 mmol/L (136-145); TOT PROT 6.9 g/dl (6.4-8.2)
[2018-08-10 08:36] LABS: BASO % 0.4 % (0-2.0); HEMATOCRIT 25.1 % (32.4-45.2); HEMOGLOBIN 8.2 GM/dL (10.7-15.3); LYMPH % 22.4 % (8-40); MCH 30.2 pg (25.7-33.7); MCHC 32.8 g/dl (32.0-36.0); MEAN CELL VOLUME 92.1 fl (80-96); MEAN PLT VOLUME 8.6 fl (7.5-11.1); MONO % 9.8 % (3.8-10.2); NEUT % 65.4 % (42.8-82.8); PLATELET COUNT 297 K/MM3 (134-434); RBC 2.72 M/mm3 (3.60-5.2); WHITE BLOOD COUNT 7.5 K/mm3 (4.0-10.0)
[2018-08-10] MEDS ORDERED: VALSARTAN 160 MG TABLET (UD) PO SCH (10:00)
[2018-08-10] MEDS ORDERED: HYDROCHLOROTHIAZIDE 12.5 MG CAPSULE (FP) PO SCH (10:00)
[2018-08-10] MEDS ORDERED: diazePAM 5 MG TABLET PO SCH (10:00)
[2018-08-10] MEDS ORDERED: PT OWN MED DRAWER 7, Y5N ONE ×2 (10:45→21:26)
[2018-08-10] MEDS: HEPARIN NA (PORCINE) 5,000 UNITS/ML 1ML VIAL SQ SCH ×2 (10:47→21:22)
[2018-08-10] MEDS: ARTIFICIAL TEARS (POLYVINYL ALCOHOL) OPTH DROPS OD SCH ×2 (10:48→21:22)
[2018-08-10] MEDS: metoPROLOL SUCCINATE 25 MG TAB.SR.24H (FP) PO SCH (10:48)
[2018-08-10] MEDS: MAGNESIUM OXIDE 400 MG TABLET (FP) PO SCH (10:48)
[2018-08-10] MEDS: FENOFIBRIC ACID 135 MG CAP PO SCH (10:48)
[2018-08-10] MEDS: SERTRALINE HCL 50 MG TABLET (FP) PO SCH (10:48)
[2018-08-10] MEDS: PANTOPRAZOLE 40 MG TABLET (FP) PO SCH ×2 (10:48→21:22)
[2018-08-10] MEDS: CALCIUM 250MG/VIT-D 125 UNITS 1 COMBO TABLET PO SCH (10:49)
[2018-08-10] MEDS: ACETAMINOPHEN 325 MG TABLET (FP) PO PRN (10:50)
--- NOTE | 2018-08-10 11:44 | HP ---
Admitting History and Physical - Primary Care Physician PCP: Santino Mendieta - Admission Chief Complaint: Abdominal pain. Hyperkalemia. MARKIE. Dehydration History of Present Illness: The patient is a 77 year old female, with a significant past medical history of 2 intra-abdominal abscesses/diverticulitis (s/p Anthony procedure), quadruple cardiac bypass, HLD, hypothyroidism, HTN, GERD, and anxiety, who presents to the emergency department with, 3 days of worsening upper abdominal pain with nausea and decreased passing of gas. Patient endorses being given Mylanta at [place] without relief. She denies any recent chest pain or shortness of breath. History Source: Patient, Medical Record Limitations to Obtaining History: No Limitations - Past Medical History Cardiovascular: Yes: CAD (s/p 4 vessel CABG in 2016), HTN, Hyperlipdemia Hepatobiliary: Yes: Cholelithiasis Renal/: Yes: Renal Failure Psych: Yes: Anxiety, Depression, Other Endocrine: Yes: Hypothyroidism - Past Surgical History Past Surgical History: Yes: CABG (4 vessel CABG at [facility] 2015), Colectomy (s/p partial colectomy ( 16cm) of rectosgmoid with colosotomy creation 04/03/18 Dr. 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 History of Recent Travel: No Home Medications - Allergies Allergies/Adverse Reactions: Allergies Allergy/AdvReac Type Severity Reaction Status Date / Time No Known Allergies Allergy Verified 04/02/18 21:59 - Home Medications Home Medications: Ambulatory Orders Albuterol 0.083% Nebulizer Nanette [Ventolin 0.083%] 1 neb NEB QID PRN 08/09/18 Atorvastatin Calcium [Lipitor] 20 mg PO HS 08/09/18 Calcium Citrate 250 mg PO DAILY 08/09/18 Diazepam [Valium] 5 mg PO DAILY 08/09/18 Fenofibrate Nanocrystallized [Fenofibrate] 145 mg PO DAILY 08/09/18 Hydrochlorothiazide [Hctz -] 12.5 mg PO DAILY 08/09/18 Levothyroxine Sodium [Levoxyl] 50 mcg PO DAILY 08/09/18 Magnesium Oxide [Magnesium] 400 mg PO DAILY 08/09/18 Metoprolol Succinate [Toprol Xl] 25 mg PO DAILY 08/09/18 Olmesartan Medoxomil [Benicar (Nf)] 20 mg PO DAILY 08/09/18 Ondansetron [Ondansetron Odt] 4 mg SL QID PRN 08/09/18 Polyvinyl Alcohol [Artificial Tears] 1 drop OD BID 08/09/18 Ranitidine [Zantac -] 300 mg PO HS 08/09/18 Sertraline HCl [Zoloft -] 50 mg PO DAILY 08/09/18 Zolpidem Tartrate [Ambien] 10 mg PO HS 08/09/18 Family Disease History - Family Disease History Family Disease History: Other: Father ( 60 of "depression"), Mother ( 80 of "depression"), Brother (2 were killed at war) Review of Systems - Review of Systems Constitutional: reports: No Symptoms Eyes: reports: No Symptoms HENT: reports: No Symptoms Neck: reports: No Symptoms Cardiovascular: reports: No Symptoms Respiratory: reports: No Symptoms Gastrointestinal: reports: Abdominal Pain, Nausea Genitourinary: reports: No Symptoms Breasts: reports: No Symptoms Reported Musculoskeletal: reports: No Symptoms Integumentary: reports: No Symptoms Neurological: reports: No Symptoms Endocrine: reports: No Symptoms Hematology/Lymphatic: reports: No Symptoms Psychiatric: reports: No Symptoms Physical Examination Vital Signs: Vital Signs Temperature 98.9 F 08/10/18 10:05 Pulse Rate 76 08/10/18 10:05 Respiratory Rate 20 08/10/18 10:05 Blood Pressure 112/59 L 08/10/18 10:05 O2 Sat by Pulse Oximetry (%) 96 08/09/18 22:00 Constitutional: Yes: Well Nourished, No Distress, Calm Cardiovascular: Yes: Regular Rate and Rhythm Respiratory: Yes: Regular Gastrointestinal: Yes: Normal Bowel Sounds, Soft Musculoskeletal: Yes: Muscle Weakness Extremities: Yes: WNL Edema: No Peripheral Pulses WNL: Yes Neurological: Yes: Alert, Oriented Psychiatric: Yes: Alert, Oriented Labs: CBC, BMP 08/10/18 06:45 08/10/18 06:45 Imaging - Results Cat Scan: Report Reviewed Problem List - Problems (1) MARKIE (acute kidney injury) Assessment/Plan: -Nephrology on board -Cr slightly improved -Continue IVF -Monitor daily trend -CT abd/pelvis, no acute kidney pathology Code(s): N17.9 - ACUTE KIDNEY FAILURE, UNSPECIFIED (2) Abdominal pain Assessment/Plan: -Seen by GI -Intermittent pain, resolved this AM with mylanta -CT abd/Pelvis no acute pathology -On PPI BID -Add sucralfate 1 gm QID -Add simethicone QID PRN Code(s): R10.9 - UNSPECIFIED ABDOMINAL PAIN Qualifiers: Abdominal location: upper abdomen, unspecified Qualified Code(s): R10.10 - Upper abdominal pain, unspecified (3) Colostomy in place Code(s): Z93.3 - COLOSTOMY STATUS (4) Diverticulosis Code(s): K57.90 - DVRTCLOS OF INTEST, PART UNSP, W/O PERF OR ABSCESS W/O BLEED (5) Hyperkalemia Assessment/Plan: -Nephrology on board -Cr slightly improved -Continue IVF -Bicarb as per nephrology -Monitor daily trend Code(s): E87.5 - HYPERKALEMIA (6) Status post Anthony's procedure Code(s): Z93.3 - COLOSTOMY STATUS (7) Anemia Assessment/Plan: -Iron profile pending -Thyroid profile normal -Last B 12 recently was unremarkable -Anemia of chronic disease? -Hematology consult Code(s): D64.9 - ANEMIA, UNSPECIFIED (8) Dehydration Assessment/Plan: -Continue IVF Code(s): E86.0 - DEHYDRATION Assessment/Plan see problem list
--- NOTE | 2018-08-10 12:48 | EKG ---
Test Reason : Blood Pressure : / mmHG Vent. Rate : 065 BPM Atrial Rate : 065 BPM P-R Int : 140 ms QRS Dur : 084 ms QT Int : 404 ms P-R-T Axes : 038 051 026 degrees QTc Int : 420 ms NORMAL SINUS RHYTHM NONSPECIFIC T WAVE ABNORMALITY ABNORMAL ECG Confirmed by Alexandro Hernandez MD ([id number]) on 08/10/2018 12:48:03 PM Referred By: Confirmed By:Alexandro Hernandez MD
[2018-08-10] MEDS: SODIUM CHLORIDE 0.45% 1,000 ML IV SCH (13:08)
[2018-08-10] MEDS: SUCRALFATE 1 GM/10 ML UNIT DOSE CUPS PO SCH ×3 (14:05→21:22)
[2018-08-10] MEDS ORDERED: SODIUM CHLORIDE 1,000 ML IV STA (14:29)
--- NOTE | 2018-08-10 14:29 | PN ---
Progress Note, Physician History of Present Illness: Pt seen and examined at bedside. She is awake and alert. He complains of abdominal pain. - Current Medication List Current Medications: Active Medications Acetaminophen (Tylenol -) 650 mg PO Q4H PRN PRN Reason: SEVERE PAIN SCALE 6-10 Last Admin: 08/10/18 10:50 Dose: 650 mg Albuterol Sulfate (Ventolin 0.083% Nebulizer Soln -) 1 amp NEB Q6H PRN PRN Reason: SHORT OF BREATH/WHEEZING Artificial Tears (Artificial Tears) 1 drop OD BID [facility] Last Admin: 08/10/18 10:48 Dose: 1 drop Atorvastatin Calcium (Lipitor -) 20 mg PO HS [facility] Last Admin: 08/09/18 21:49 Dose: 20 mg Calcium/Vitamin D (Oscal 250 Mg+D -) 1 tab PO DAILY [facility] Last Admin: 08/10/18 10:49 Dose: 1 tab Diazepam (Valium -) 5 mg PO DAILY [facility] Last Admin: 08/10/18 10:48 Dose: 5 mg Fenofibric Acid (Trilipix -) 135 mg PO DAILY [facility] Last Admin: 08/10/18 10:48 Dose: 135 mg Heparin Sodium (Porcine) (Heparin -) 5,000 unit SQ BID [facility] Last Admin: 08/10/18 10:47 Dose: Not Given Sodium Chloride (1/2 Normal Saline) 1,000 mls @ 100 mls/hr IV ASDIR [facility] Last Admin: 08/10/18 13:08 Dose: 100 mls/hr Levothyroxine Sodium (Synthroid -) 50 mcg PO AM [facility] Last Admin: 08/10/18 07:03 Dose: 50 mcg Magnesium Oxide (Mag-Ox -) 400 mg PO DAILY [facility] Last Admin: 08/10/18 10:48 Dose: 400 mg Metoprolol Succinate (Toprol Xl -) 25 mg PO DAILY [facility] Last Admin: 08/10/18 10:48 Dose: Not Given Ondansetron HCl (Zofran Odt -) 4 mg SL QID PRN PRN Reason: NAUSEA Last Admin: 08/10/18 13:22 Dose: 4 mg Pantoprazole Sodium (Protonix -) 40 mg PO BID [facility] Last Admin: 08/10/18 10:48 Dose: 40 mg Sertraline HCl (Zoloft -) 50 mg PO DAILY [facility] Last Admin: 08/10/18 10:48 Dose: 50 mg Sucralfate (Carafate Oral Suspension -) 1 gm PO QID MARY JANE Last Admin: 08/10/18 14:05 Dose: 1 gm Zolpidem Tartrate (Ambien -) 5 mg PO HS PRN PRN Reason: INSOMNIA Last Admin: 08/09/18 22:06 Dose: 5 mg - Objective Vital Signs: Vital Signs Temperature 98.9 F 08/10/18 10:05 Pulse Rate 76 08/10/18 10:05 Respiratory Rate 20 08/10/18 10:05 Blood Pressure 112/59 L 08/10/18 10:05 O2 Sat by Pulse Oximetry (%) 96 08/09/18 22:00 Constitutional: Yes: Calm Eyes: Yes: Conjunctiva Clear HENT: Yes: Atraumatic Neck: Yes: Supple Cardiovascular: Yes: S1, S2 Respiratory: Yes: CTA Bilaterally Gastrointestinal: Yes: Tenderness Musculoskeletal: Yes: WNL Extremities: Yes: WNL Edema: No Neurological: Yes: Oriented Psychiatric: Yes: Oriented Labs: CBC, BMP 08/10/18 06:45 08/10/18 06:45 INR, PTT INR 1.13 (0.83-1.09) H 08/09/18 11:00 Problem List - Problems (1) MARKIE (acute kidney injury) Code(s): N17.9 - ACUTE KIDNEY FAILURE, UNSPECIFIED (2) Abdominal pain Code(s): R10.9 - UNSPECIFIED ABDOMINAL PAIN Qualifiers: Abdominal location: upper abdomen, unspecified Qualified Code(s): R10.10 - Upper abdominal pain, unspecified (3) Hyperkalemia Code(s): E87.5 - HYPERKALEMIA Assessment/Plan Current Medications Generic Name Dose Route Start Last Admin Trade Name Freq PRN Reason Stop Dose Admin Acetaminophen 650 mg 08/10/18 10:39 08/10/18 10:50 Tylenol - PO 650 mg Q4H PRN Administration SEVERE PAIN SCALE 6-10 Albuterol Sulfate 1 amp 08/09/18 16:06 Ventolin 0.083% Nebulizer Soln - NEB Q6H PRN SHORT OF BREATH/WHEEZING Artificial Tears 1 drop 08/09/18 22:00 08/10/18 10:48 Artificial Tears OD 1 drop BID MARY JANE Administration Atorvastatin Calcium 20 mg 08/09/18 22:00 08/09/18 21:49 Lipitor - PO 20 mg HS [facility] Administration Calcium/Vitamin D 1 tab 08/10/18 10:00 08/10/18 10:49 Oscal 250 Mg+D - PO 1 tab DAILY [facility] Administration Diazepam 5 mg 08/10/18 10:00 08/10/18 10:48 Valium - PO 5 mg DAILY MARY JANE Administration Fenofibric Acid 135 mg 08/10/18 10:00 08/10/18 10:48 Trilipix - PO 135 mg DAILY MARY JANE Administration Heparin Sodium (Porcine) 5,000 unit 08/09/18 22:00 08/10/18 10:47 Heparin - SQ Not Given BID [facility] Sodium Chloride 1,000 mls @ 100 mls/hr 08/10/18 12:15 08/10/18 13:08 1/2 Normal Saline IV 100 mls/hr ASDIR MARY JANE Administration Levothyroxine Sodium 50 mcg 08/10/18 07:00 08/10/18 07:03 Synthroid - PO 50 mcg AM [facility] Administration Magnesium Oxide 400 mg 08/10/18 10:00 08/10/18 10:48 Mag-Ox - PO 400 mg DAILY [facility] Administration Metoprolol Succinate 25 mg 08/10/18 10:00 08/10/18 10:48 Toprol Xl - PO Not Given DAILY [facility] Ondansetron HCl 4 mg 08/09/18 16:06 08/10/18 13:22 Zofran Odt - SL 4 mg QID PRN Administration NAUSEA Pantoprazole Sodium 40 mg 08/10/18 10:00 08/10/18 10:48 Protonix - PO 40 mg BID [facility] Administration Sertraline HCl 50 mg 08/10/18 10:00 08/10/18 10:48 Zoloft - PO 50 mg DAILY [facility] Administration Sucralfate 1 gm 08/10/18 14:00 08/10/18 14:05 Carafate Oral Suspension - PO 1 gm QID [facility] Administration Zolpidem Tartrate 5 mg 08/09/18 22:00 08/09/18 22:06 Ambien - PO 5 mg HS PRN Administration INSOMNIA Impression 1. MARKIE 2. hyperkalemia 3. abdominal pain 4. hx of perforated diverticula 5. acidosis 6. hld 7. CAD 8. HTN 9. anxiety 10. 1.3 cm left adrenal nodule Plan - potassium elevated - will treat with fluids/lasix - do not give kayexylate - low potassium diet - check urine lytes and asset protection detective - renal ultrasound
[2018-08-10] MEDS ORDERED: ALBUTEROL SO4 0.083% IH SOL 2.5 MG/3 ML VIAL.NEB. NEB PRN (14:30)
[2018-08-10] MEDS ORDERED: SODIUM BICARBONATE 8.4% 50 MEQ/50 ML VIAL IVPUSH ONE (15:00)
[2018-08-10] MEDS ORDERED: FUROSEMIDE 40 MG TABLET (FP) PO ONE (15:00)
[2018-08-10] MEDS ORDERED: SIMETHICONE 40 MG/0.6 ML BOTTLE PO PRN (15:28)
[2018-08-10 18:16] LABS: EPI CELLS 1.9 /HPF (0-5/HPF); HYALINE CASTS 3 /lpf (0-8); PH,URINE 7.5 (5.0-8.0); URINE APPEARANCE CLEAR; URINE BACTERIA 13.7 /hpf (NEGATIVE); URINE BILIRUBIN NEGATIVE (NEGATIVE); URINE COLOR YELLOW; URINE GLUCOSE (UA) NEGATIVE (NEGATIVE); URINE KETONE NEGATIVE (NEGATIVE); URINE LEUK ESTERASE 1+ (NEGATIVE); URINE NITRITE NEGATIVE (NEGATIVE); URINE PROTEIN NEGATIVE (NEGATIVE); URINE RBC 1 /hpf (0-4); URINE UROBILINOGEN 0.2 mg/dL (0.2-1.0); URINE WBC 7 /hpf (0-5)
[2018-08-10] MEDS ORDERED: ACETAMINOPHEN 1000 MG/100 ML VIAL (NON FORMULARY) IVPB ONE (18:50)
[2018-08-10] MEDS: ZOLPIDEM TARTRATE 5 MG TABLET PO PRN (21:22)
[2018-08-10] MEDS: ATORVASTATIN CA 20 MG TABLET (FP) PO SCH (21:22)
[2018-08-10] MEDS: diazePAM 5 MG TABLET PO SCH (21:22)
--- NOTE | 2018-08-10 21:33 | PN.GI ---
GI Progress Note Subjective: GI NOte: Nursing reports that Latrice had a variety of GI complaints today that include abdominal pain, nausea and diarrhea. She ate poorly. She tells me that her abdominal pain is aggravated by doing a sit up. She has not vomited. The CT was done without contrast and revealed some stranding in the LLQ. A repeat was advised with contrast. Her renal function precludes IV contrast. Her pain is periumbilcal today - Objective Vital Signs: Vital Signs Temperature 98.9 F 08/10/18 10:05 Pulse Rate 91 H 08/10/18 15:20 Respiratory Rate 20 08/10/18 15:20 Blood Pressure 101/49 L 08/10/18 15:20 O2 Sat by Pulse Oximetry (%) 96 08/09/18 22:00 Laboratory Tests 08/09/18 08/09/18 08/09/18 11:00 11:00 17:18 WBC 9.4 Hgb 9.2 L Retic Count BUN 43.9 H 42.4 H Creatinine 2.6 H Total Bilirubin AST ALT Alkaline Phosphatase LD Total Albumin Total Amylase Lipase 08/10/18 08/10/18 08/10/18 06:45 06:45 06:45 WBC 7.5 Hgb 8.2 L Retic Count 1.07 D BUN 35.2 H Creatinine 2.4 H Total Bilirubin 0.2 AST 27 ALT 24 Alkaline Phosphatase 66 LD Total Albumin 3.0 L Total Amylase 109 Lipase 257 08/10/18 06:45 WBC Hgb Retic Count BUN Creatinine Total Bilirubin AST ALT Alkaline Phosphatase LD Total 140 Albumin Total Amylase Lipase Constitutional: Anxious Cardiovascular: Yes: Regular Rate and Rhythm Respiratory: Yes: CTA Bilaterally Gastrointestinal Inspection: Yes: Hernia (LLQ colsotomy with nontender tender hernia) ...Auscultate: Yes: Hypoactive Bowel Sounds ...Palpate: Yes: Soft, Other (no tenderness elicited. no masses felt) Labs: CBC, BMP 08/10/18 06:45 08/10/18 06:45 INR, PTT INR 1.13 (0.83-1.09) H 08/09/18 11:00 Assessment/Plan Impression: - Given the persistence of pain, residual diverticular inflammation or a a partial SBO need to be excluded - 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 Plan: Continue IV resuscitation CT scan with oral contrast Latrice has declined colonoscopy for cancer screening and EGD to exclude an ulcer. Continue empiric PPI therapy Consult Dr Parada to evaluate colostomy hernia and to consider reversal of the colostomy Problem List - Problems (1) Diverticulosis Code(s): K57.90 - DVRTCLOS OF INTEST, PART UNSP, W/O PERF OR ABSCESS W/O BLEED (2) Colostomy in place Code(s): Z93.3 - COLOSTOMY STATUS (3) Abdominal pain Code(s): R10.9 - UNSPECIFIED ABDOMINAL PAIN Qualifiers: Abdominal location: upper abdomen, unspecified Qualified Code(s): R10.10 - Upper abdominal pain, unspecified (4) Hyperkalemia Code(s): E87.5 - HYPERKALEMIA (5) Status post Anthony's procedure Code(s): Z93.3 - COLOSTOMY STATUS (6) Depression with anxiety Code(s): F41.8 - OTHER SPECIFIED ANXIETY DISORDERS (7) HLD (hyperlipidemia) Code(s): E78.5 - HYPERLIPIDEMIA, UNSPECIFIED (8) HTN (hypertension) Code(s): I10 - ESSENTIAL (PRIMARY) HYPERTENSION Qualifiers: Hypertension type: essential hypertension Qualified Code(s): I10 - Essential (primary) hypertension (9) Hypothyroidism Code(s): E03.9 - HYPOTHYROIDISM, UNSPECIFIED Qualifiers: Hypothyroidism type: acquired Qualified Code(s): E03.9 - Hypothyroidism, unspecified
[2018-08-11 04:10] LABS: SERUM IRON SATURATION 8 % (15-55); TOTAL IRON BINDING CAPACITY 389 ug/dL (250-450); UIBC 357 ug/dL (118-369)
[2018-08-11] MEDS: LEVOTHYROXINE NA 50 MCG TABLET (FP) PO SCH (06:00)
[2018-08-11] MEDS: ACETAMINOPHEN 325 MG TABLET (FP) PO PRN (06:57)
[2018-08-11 08:15] LABS: BASO % 0.4 % (0-2.0); EOS % 3.8 % (0-4.5); HEMATOCRIT 27.6 % (32.4-45.2); LYMPH % 30.7 % (8-40); MCH 30.1 pg (25.7-33.7); MCHC 32.6 g/dl (32.0-36.0); MEAN CELL VOLUME 92.3 fl (80-96); MEAN PLT VOLUME 8.8 fl (7.5-11.1); MONO % 9.5 % (3.8-10.2); NEUT % 55.6 % (42.8-82.8); PLATELET COUNT 302 K/MM3 (134-434); RBC 2.99 M/mm3 (3.60-5.2); RDW 12.9 % (11.6-15.6)
[2018-08-11 08:39] LABS: ALBUMIN 3.2 g/dl (3.4-5.0); BILIRUBIN,TOTAL 0.2 mg/dL (0.2-1); BLOOD UREA NITROGEN 26.7 mg/dL (7-18); CALCIUM 8.6 mg/dL (8.5-10.1); CREATININE 2.3 mg/dL (0.55-1.3); POTASSIUM 5.4 mmol/L (3.5-5.1)
[2018-08-11] MEDS ORDERED: PT OWN MED DRAWER 7, Y5N ONE ×2 (09:37→13:28)
[2018-08-11] MEDS: HEPARIN NA (PORCINE) 5,000 UNITS/ML 1ML VIAL SQ SCH ×2 (09:56→21:29)
[2018-08-11] MEDS: SUCRALFATE 1 GM/10 ML UNIT DOSE CUPS PO SCH ×4 (09:56→21:29)
[2018-08-11] MEDS: PANTOPRAZOLE 40 MG TABLET (FP) PO SCH ×2 (09:57→21:29)
[2018-08-11] MEDS: MAGNESIUM OXIDE 400 MG TABLET (FP) PO SCH ×2 (09:57→11:00)
[2018-08-11] MEDS: diazePAM 5 MG TABLET PO SCH ×2 (09:58→21:29)
[2018-08-11] MEDS: metoPROLOL SUCCINATE 25 MG TAB.SR.24H (FP) PO SCH (09:58)
[2018-08-11] MEDS: SERTRALINE HCL 50 MG TABLET (FP) PO SCH (10:00)
[2018-08-11] MEDS: FENOFIBRIC ACID 135 MG CAP PO SCH (10:12)
[2018-08-11] MEDS: SODIUM CHLORIDE 0.45% 1,000 ML IV SCH ×3 (10:32→23:50)
[2018-08-11] MEDS ORDERED: ONDANSETRON 4 MG TABLET PO ONE ×2 (10:43→18:39)
[2018-08-11] MEDS: ARTIFICIAL TEARS (POLYVINYL ALCOHOL) OPTH DROPS OD SCH ×2 (10:51→21:29)
[2018-08-11] MEDS: ONDANSETRON 8 MG TABLET (FP) PO PRN ×2 (10:56→18:46)
--- NOTE | 2018-08-11 11:24 | PN ---
Progress Note, Physician Chief Complaint: Abdominal pain History of Present Illness: NAD abdominal pain improved today Extremely upset and agitated, does not want CT abd with contrast Seen by GI today Pt has been extreme upset and agitated intermittently with nursing staff and providers. Son at bedside - Current Medication List Current Medications: Active Medications Acetaminophen (Tylenol -) 650 mg PO Q4H PRN PRN Reason: SEVERE PAIN SCALE 6-10 Last Admin: 08/11/18 06:57 Dose: 650 mg Albuterol Sulfate (Ventolin 0.083% Nebulizer Soln -) 1 amp NEB Q6H PRN PRN Reason: SHORT OF BREATH/WHEEZING Albuterol Sulfate (Ventolin 0.083% Nebulizer Soln -) 1 amp NEB Q1H PRN PRN Reason: SHORT OF BREATH/WHEEZING Artificial Tears (Artificial Tears) 1 drop OD BID [facility] Last Admin: 08/11/18 10:51 Dose: 1 drop Atorvastatin Calcium (Lipitor -) 20 mg PO HS [facility] Last Admin: 08/10/18 21:22 Dose: 20 mg Calcium/Vitamin D (Oscal 250 Mg+D -) 1 tab PO DAILY [facility] Last Admin: 08/10/18 10:49 Dose: 1 tab Diazepam (Valium -) 5 mg PO BID [facility] Last Admin: 08/11/18 09:58 Dose: 5 mg Fenofibric Acid (Trilipix -) 135 mg PO DAILY [facility] Last Admin: 08/11/18 10:12 Dose: 135 mg Heparin Sodium (Porcine) (Heparin -) 5,000 unit SQ BID [facility] Last Admin: 08/11/18 09:56 Dose: Not Given Sodium Chloride (1/2 Normal Saline) 1,000 mls @ 100 mls/hr IV ASDIR [facility] Last Admin: 08/11/18 10:32 Dose: 100 mls/hr Levothyroxine Sodium (Synthroid -) 50 mcg PO AM [facility] Last Admin: 08/11/18 06:00 Dose: 50 mcg Magnesium Oxide (Mag-Ox -) 400 mg PO DAILY [facility] Last Admin: 08/11/18 09:57 Dose: 400 mg Metoprolol Succinate (Toprol Xl -) 25 mg PO DAILY [facility] Last Admin: 08/11/18 09:58 Dose: Not Given Ondansetron HCl (Zofran -) 8 mg PO Q8H PRN PRN Reason: NAUSEA Last Admin: 08/11/18 10:56 Dose: 8 mg Pantoprazole Sodium (Protonix -) 40 mg PO BID [facility] Last Admin: 08/11/18 09:57 Dose: 40 mg Sertraline HCl (Zoloft -) 50 mg PO DAILY [facility] Last Admin: 08/11/18 10:00 Dose: 50 mg Simethicone (Mylicon Liquid -) 80 mg PO QID PRN PRN Reason: GAS Sucralfate (Carafate Oral Suspension -) 1 gm PO QID [facility] Last Admin: 08/11/18 09:56 Dose: 1 gm Zolpidem Tartrate (Ambien -) 5 mg PO HS PRN PRN Reason: INSOMNIA Last Admin: 08/10/18 21:22 Dose: 5 mg - Objective Vital Signs: Vital Signs Temperature 98.4 F 08/11/18 06:00 Pulse Rate 80 08/11/18 06:00 Respiratory Rate 20 08/11/18 06:00 Blood Pressure 107/56 L 08/11/18 06:00 O2 Sat by Pulse Oximetry (%) 97 08/10/18 10:30 Constitutional: Yes: Well Nourished, No Distress, Calm Cardiovascular: Yes: Regular Rate and Rhythm Respiratory: Yes: Regular Gastrointestinal: Yes: Normal Bowel Sounds, Soft, Other (Colostomy) Genitourinary: Yes: WNL Musculoskeletal: Yes: WNL Extremities: Yes: WNL Edema: No Peripheral Pulses WNL: Yes Neurological: Yes: Alert, Oriented Psychiatric: Yes: Alert, Oriented Labs: CBC, BMP 08/11/18 06:00 08/11/18 06:00 INR, PTT INR 1.13 (0.83-1.09) H 08/09/18 11:00 Problem List - Problems (1) MARKIE (acute kidney injury) Assessment/Plan: -Nephrology on board -Cr slightly improved -Continue IVF -Monitor daily trend -CT abd/pelvis, no acute kidney pathology Code(s): N17.9 - ACUTE KIDNEY FAILURE, UNSPECIFIED (2) Abdominal pain Assessment/Plan: -Seen by GI -Intermittent pain, resolved this AM with mylanta -CT abd/Pelvis no acute pathology -On PPI BID -Add sucralfate 1 gm QID -Add simethicone QID PRN -CT abd with oral contrast ordered- pt refused this am -If abd pain returns, make pt NPO and do CT abd with oral contrast Code(s): R10.9 - UNSPECIFIED ABDOMINAL PAIN Qualifiers: Abdominal location: upper abdomen, unspecified Qualified Code(s): R10.10 - Upper abdominal pain, unspecified (3) Colostomy in place Assessment/Plan: -Consult Dr Jensen for evaluation of abd pain to r/o perforation, obstruction or stricture Code(s): Z93.3 - COLOSTOMY STATUS (4) Diverticulosis Code(s): K57.90 - DVRTCLOS OF INTEST, PART UNSP, W/O PERF OR ABSCESS W/O BLEED (5) Hyperkalemia Assessment/Plan: -Nephrology on board -Cr slightly improved -Continue IVF -Furosemide one dose -Monitor daily trend Code(s): E87.5 - HYPERKALEMIA (6) Status post Anthony's procedure Code(s): Z93.3 - COLOSTOMY STATUS (7) Anemia Code(s): D64.9 - ANEMIA, UNSPECIFIED (8) Dehydration Code(s): E86.0 - DEHYDRATION Assessment/Plan see problem list Self ambulatory Plan discussed with family
[2018-08-11] MEDS ORDERED: SODIUM CHLORIDE 1,000 ML IV STA (12:08)
[2018-08-11] MEDS ORDERED: FUROSEMIDE 40 MG TABLET (FP) PO ONE (12:08)
--- NOTE | 2018-08-11 12:08 | PN ---
Progress Note, Physician History of Present Illness: Pt seen and examined at bedside. SHe is awake and alert. She feels that the abdominal pain is improved today. - Current Medication List Current Medications: Active Medications Acetaminophen (Tylenol -) 650 mg PO Q4H PRN PRN Reason: SEVERE PAIN SCALE 6-10 Last Admin: 08/11/18 06:57 Dose: 650 mg Albuterol Sulfate (Ventolin 0.083% Nebulizer Soln -) 1 amp NEB Q6H PRN PRN Reason: SHORT OF BREATH/WHEEZING Albuterol Sulfate (Ventolin 0.083% Nebulizer Soln -) 1 amp NEB Q1H PRN PRN Reason: SHORT OF BREATH/WHEEZING Artificial Tears (Artificial Tears) 1 drop OD BID [facility] Last Admin: 08/11/18 10:51 Dose: 1 drop Atorvastatin Calcium (Lipitor -) 20 mg PO HS [facility] Last Admin: 08/10/18 21:22 Dose: 20 mg Calcium/Vitamin D (Oscal 250 Mg+D -) 1 tab PO DAILY [facility] Last Admin: 08/10/18 10:49 Dose: 1 tab Diazepam (Valium -) 5 mg PO BID [facility] Last Admin: 08/11/18 09:58 Dose: 5 mg Fenofibric Acid (Trilipix -) 135 mg PO DAILY [facility] Last Admin: 08/11/18 10:12 Dose: 135 mg Heparin Sodium (Porcine) (Heparin -) 5,000 unit SQ BID [facility] Last Admin: 08/11/18 09:56 Dose: Not Given Sodium Chloride (1/2 Normal Saline) 1,000 mls @ 100 mls/hr IV ASDIR [facility] Last Admin: 08/11/18 10:32 Dose: 100 mls/hr Levothyroxine Sodium (Synthroid -) 50 mcg PO AM [facility] Last Admin: 08/11/18 06:00 Dose: 50 mcg Magnesium Oxide (Mag-Ox -) 400 mg PO DAILY [facility] Last Admin: 08/11/18 09:57 Dose: 400 mg Metoprolol Succinate (Toprol Xl -) 25 mg PO DAILY [facility] Last Admin: 08/11/18 09:58 Dose: Not Given Ondansetron HCl (Zofran -) 8 mg PO Q8H PRN PRN Reason: NAUSEA Last Admin: 08/11/18 10:56 Dose: 8 mg Pantoprazole Sodium (Protonix -) 40 mg PO BID [facility] Last Admin: 06/12/19 09:57 Dose: 40 mg Sertraline HCl (Zoloft -) 50 mg PO DAILY [facility] Last Admin: 08/11/18 10:00 Dose: 50 mg Simethicone (Mylicon Liquid -) 80 mg PO QID PRN PRN Reason: GAS Sucralfate (Carafate Oral Suspension -) 1 gm PO QID [facility] Last Admin: 08/11/18 09:56 Dose: 1 gm Zolpidem Tartrate (Ambien -) 5 mg PO HS PRN PRN Reason: INSOMNIA Last Admin: 08/10/18 21:22 Dose: 5 mg - Objective Vital Signs: Vital Signs Temperature 98.4 F 08/11/18 06:00 Pulse Rate 80 08/11/18 06:00 Respiratory Rate 20 08/11/18 06:00 Blood Pressure 107/56 L 08/11/18 06:00 O2 Sat by Pulse Oximetry (%) 97 08/10/18 10:30 Constitutional: Yes: Calm Eyes: Yes: Conjunctiva Clear HENT: Yes: Atraumatic Neck: Yes: Supple Cardiovascular: Yes: S1, S2 Respiratory: Yes: CTA Bilaterally Gastrointestinal: Yes: Soft, Other (colostomy) Genitourinary: Yes: WNL Musculoskeletal: Yes: WNL Edema: No Neurological: Yes: Oriented Psychiatric: Yes: Oriented Labs: CBC, BMP 08/11/18 06:00 08/11/18 06:00 INR, PTT INR 1.13 (0.83-1.09) H 08/09/18 11:00 Problem List - Problems (1) MARKIE (acute kidney injury) Code(s): N17.9 - ACUTE KIDNEY FAILURE, UNSPECIFIED (2) Abdominal pain Code(s): R10.9 - UNSPECIFIED ABDOMINAL PAIN Qualifiers: Abdominal location: upper abdomen, unspecified Qualified Code(s): R10.10 - Upper abdominal pain, unspecified (3) Hyperkalemia Code(s): E87.5 - HYPERKALEMIA Assessment/Plan Current Medications Generic Name Dose Route Start Last Admin Trade Name Freq PRN Reason Stop Dose Admin Acetaminophen 650 mg 08/10/18 10:39 08/11/18 06:57 Tylenol - PO 650 mg Q4H PRN Administration SEVERE PAIN SCALE 6-10 Albuterol Sulfate 1 amp 08/09/18 16:06 Ventolin 0.083% Nebulizer Soln - NEB Q6H PRN SHORT OF BREATH/WHEEZING Albuterol Sulfate 1 amp 08/10/18 14:30 Ventolin 0.083% Nebulizer Soln - NEB Q1H PRN SHORT OF BREATH/WHEEZING Artificial Tears 1 drop 08/09/18 22:00 08/11/18 10:51 Artificial Tears OD 1 drop BID [facility] Administration Atorvastatin Calcium 20 mg 08/09/18 22:00 08/10/18 21:22 Lipitor - PO 20 mg HS [facility] Administration Calcium/Vitamin D 1 tab 08/10/18 10:00 08/10/18 10:49 Oscal 250 Mg+D - PO 1 tab DAILY [facility] Administration Diazepam 5 mg 08/10/18 22:00 08/11/18 09:58 Valium - PO 5 mg BID [facility] Administration Fenofibric Acid 135 mg 08/10/18 10:00 08/11/18 10:12 Trilipix - PO 135 mg DAILY [facility] Administration Heparin Sodium (Porcine) 5,000 unit 08/09/18 22:00 08/11/18 09:56 Heparin - SQ Not Given BID [facility] Sodium Chloride 1,000 mls @ 100 mls/hr 08/10/18 12:15 08/11/18 10:32 1/2 Normal Saline IV 100 mls/hr ASDIR [facility] Administration Levothyroxine Sodium 50 mcg 08/10/18 07:00 08/11/18 06:00 Synthroid - PO 50 mcg AM [facility] Administration Magnesium Oxide 400 mg 08/10/18 10:00 08/11/18 09:57 Mag-Ox - PO 400 mg DAILY [facility] Administration Metoprolol Succinate 25 mg 08/10/18 10:00 08/11/18 09:58 Toprol Xl - PO Not Given DAILY [facility] Ondansetron HCl 8 mg 08/11/18 07:26 08/11/18 10:56 Zofran - PO 8 mg Q8H PRN Administration NAUSEA Pantoprazole Sodium 40 mg 08/10/18 10:00 08/11/18 09:57 Protonix - PO 40 mg BID [facility] Administration Sertraline HCl 50 mg 08/10/18 10:00 08/11/18 10:00 Zoloft - PO 50 mg DAILY [facility] Administration Simethicone 80 mg 08/10/18 15:28 Mylicon Liquid - PO QID PRN GAS Sucralfate 1 gm 08/10/18 14:00 08/11/18 09:56 Carafate Oral Suspension - PO 1 gm QID [facility] Administration Zolpidem Tartrate 5 mg 08/09/18 22:00 08/10/18 21:22 Ambien - PO 5 mg HS PRN Administration INSOMNIA Laboratory Tests 08/10/18 16:05 Urine Protein Negative Urine Blood Negative Impression 1. MARKIE 2. hyperkalemia 3. abdominal pain 4. hx of perforated diverticula 5. acidosis 6. hld 7. CAD 8. HTN 9. anxiety 10. 1.3 cm left adrenal nodule Plan - potassium improving - renal function is improving - cont with fluids - will give another fluid bolus with lasix - do not give kayexylate - low potassium diet once eating
--- NOTE | 2018-08-11 13:18 | CONSULT ---
Consultation: REQUESTING PROVIDER: CONSULT REQUEST: We have been asked to medically evaluate this patient for ( anemia). HISTORY OF PRESENT ILLNESS: The patient is a 77 year old [place] female, with a past medical history of diverticulitis, complicated with abscess, (s/p Anthony procedure), CABG, HLD, hypothyroidism, HTN, GERD, hypothyroidism, dyslipidemia, and anxiety, admitted for abdominal pain with nausea and decreased passing of gas. Hematology/Oncology was consulted for evaluation of anemia. The patient is complaining of bloating. She denies abdominal pain, anemia in the past, melena, hematuria, hematemesis. She denies palpitations, weakness, SOB , chest pain. PSH: CABG (s/p 4 vessel in 2016), Colectomy, s/p partial colectomy (16cm) of rectosgmoid with colosotomy creation 04/03/18 Dr. 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, has healthy children REVIEW OF SYSTEMS: CONSTITUTIONAL: Absent: fever, chills, diaphoresis, generalized weakness, malaise, loss of appetite, weight change HEENT: Absent: rhinorrhea, nasal congestion, mouth swelling, visual changes CARDIOVASCULAR: Absent: chest pain, syncope, palpitations, irregular heart rate, lightheadedness , peripheral edema RESPIRATORY: Absent: cough, shortness of breath, orthopnea, wheezing, hemoptysis GASTROINTESTINAL:abdominal distension Absent: abdominal pain, nausea, vomiting, diarrhea, constipation, melena, hematochezia GENITOURINARY: Absent: dysuria, frequency, urgency, hesitancy, hematuria MUSCULOSKELETAL: Absent: myalgia, arthralgia, joint swelling, back pain, neck pain SKIN: Absent: rash, itching, pallor HEMATOLOGIC/IMMUNOLOGIC: Absent: easy bleeding, easy bruising, lymphadenopathy, frequent infections ENDOCRINE: Absent: unexplained weight gain, unexplained weight loss NEUROLOGIC: Absent: headache, focal weakness or paresthesias, dizziness PSYCHIATRIC: Absent: anxiety, depression PHYSICAL EXAMINATION Vital Signs - 24 hr 08/10/18 08/10/18 08/11/18 15:20 23:00 06:00 Temperature 98.3 F 98.4 F Pulse Rate 91 H 82 80 Respiratory 20 20 20 Rate Blood Pressure 101/49 L 139/69 107/56 L GENERAL: Awake, alert, and fully oriented, in no acute distress. HEAD: Normal with no signs of trauma. EYES: Pupils equal, round and reactive to light, extraocular movements intact, sclera anicteric, conjunctiva clear. EARS, NOSE, THROAT: Oropharynx clear without exudates. Moist mucous membranes. NECK: Supple without lymphadenopathy, JVD, or masses. LUNGS: Breath sounds equal, clear to auscultation bilaterally. No wheezes, and no crackles. No accessory muscle use. HEART: Regular rate and rhythm, normal S1 and S2 without murmur, rub or gallop. ABDOMEN: Soft, nontender, not distended, hypooactive bowel sounds, no guarding, no rebound, colostomy bag with light brown stool, no erythema, tenderness around. MUSCULOSKELETAL: Normal range of motion at all joints. No bony deformities or tenderness. UPPER EXTREMITIES: No peripheral edema. LOWER EXTREMITIES: 2+ pulses, warm. No peripheral edema. NEUROLOGICAL: Non focal. Normal speech. PSYCHIATRIC: Anxious, cooperative. Good eye contact. SKIN: Warm, dry, normal turgor, no rashes. [place]; no masses, symmetric Laboratory Results - last 24 hr 08/10/18 08/10/18 08/10/18 06:45 16:05 16:05 WBC RBC Hgb Hct MCV MCH MCHC RDW Plt Count MPV Absolute Neuts (auto) Neutrophils % Lymphocytes % Monocytes % Eosinophils % Basophils % Nucleated RBC % Sodium Potassium Chloride Carbon Dioxide Anion Gap BUN Creatinine Est GFR (CKD-EPI)AfAm Est GFR (CKD-EPI)NonAf POC Glucometer Random Glucose Calcium Iron 32 TIBC 389 Iron Saturation 8 L Total Bilirubin AST ALT Alkaline Phosphatase C-Reactive Protein Total Protein Albumin Urine Color Yellow Urine Appearance Clear Urine pH 7.5 D Ur Specific [place] 1.013 Urine Protein Negative Urine Glucose (UA) Negative Urine Ketones Negative Urine Blood Negative Urine Nitrite Negative Urine Bilirubin Negative Urine Urobilinogen 0.2 Ur Leukocyte Esterase 1+ H Urine WBC (Auto) 7 Urine RBC (Auto) 1 Urine Casts (Auto) 3 U Epithel Cells (Auto) 1.9 Urine Bacteria (Auto) 13.7 Ur Random Creatinine 74.0 Ur Random Sodium 110 Ur Random Potassium 24.3 L Ur Random Chloride 112 08/10/18 08/11/18 08/11/18 21:31 05:58 06:00 WBC RBC Hgb Hct MCV MCH MCHC RDW Plt Count MPV Absolute Neuts (auto) Neutrophils % Lymphocytes % Monocytes % Eosinophils % Basophils % Nucleated RBC % Sodium 141 Potassium 5.4 H Chloride 113 H Carbon Dioxide 21 Anion Gap 7 L BUN 26.7 H Creatinine 2.3 H Est GFR (CKD-EPI)AfAm 23.31 Est GFR (CKD-EPI)NonAf 20.12 POC Glucometer 145 82 Random Glucose 86 Calcium 8.6 Iron TIBC Iron Saturation Total Bilirubin 0.2 AST 29 ALT 26 Alkaline Phosphatase 65 C-Reactive Protein 1.5 H Total Protein 7.0 Albumin 3.2 L Urine Color Urine Appearance Urine pH Ur Specific [place] Urine Protein Urine Glucose (UA) Urine Ketones Urine Blood Urine Nitrite Urine Bilirubin Urine Urobilinogen Ur Leukocyte Esterase Urine WBC (Auto) Urine RBC (Auto) Urine Casts (Auto) U Epithel Cells (Auto) Urine Bacteria (Auto) Ur Random Creatinine Ur Random Sodium Ur Random Potassium Ur Random Chloride 08/11/18 08/11/18 06:00 12:35 WBC 9.0 RBC 2.99 L Hgb 9.0 L Hct 27.6 L MCV 92.3 MCH 30.1 MCHC 32.6 RDW 12.9 Plt Count 302 MPV 8.8 Absolute Neuts (auto) 5.0 Neutrophils % 55.6 Lymphocytes % 30.7 D Monocytes % 9.5 Eosinophils % 3.8 D Basophils % 0.4 Nucleated RBC % 0 Sodium Potassium Chloride Carbon Dioxide Anion Gap BUN Creatinine Est GFR (CKD-EPI)AfAm Est GFR (CKD-EPI)NonAf POC Glucometer 80 Random Glucose Calcium Iron TIBC Iron Saturation Total Bilirubin AST ALT Alkaline Phosphatase C-Reactive Protein Total Protein Albumin Urine Color Urine Appearance Urine pH Ur Specific [place] Urine Protein Urine Glucose (UA) Urine Ketones Urine Blood Urine Nitrite Urine Bilirubin Urine Urobilinogen Ur Leukocyte Esterase Urine WBC (Auto) Urine RBC (Auto) Urine Casts (Auto) U Epithel Cells (Auto) Urine Bacteria (Auto) Ur Random Creatinine Ur Random Sodium Ur Random Potassium Ur Random Chloride Active Medications Generic Name Dose Route Start Last Admin Trade Name Freq PRN Reason Stop Dose Admin Acetaminophen 650 mg 08/10/18 10:39 08/11/18 06:57 Tylenol - PO 650 mg Q4H PRN Administration SEVERE PAIN SCALE 6-10 Albuterol Sulfate 1 amp 08/09/18 16:06 Ventolin 0.083% Nebulizer Soln - NEB Q6H PRN SHORT OF BREATH/WHEEZING Albuterol Sulfate 1 amp 08/10/18 14:30 Ventolin 0.083% Nebulizer Soln - NEB Q1H PRN SHORT OF BREATH/WHEEZING Artificial Tears 1 drop 08/09/18 22:00 08/11/18 10:51 Artificial Tears OD 1 drop BID MARY JANE Administration Atorvastatin Calcium 20 mg 08/09/18 22:00 08/10/18 21:22 Lipitor - PO 20 mg HS MARY JANE Administration Calcium/Vitamin D 1 tab 08/10/18 10:00 08/10/18 10:49 Oscal 250 Mg+D - PO 1 tab DAILY MARY JANE Administration Diazepam 5 mg 08/10/18 22:00 08/11/18 09:58 Valium - PO 5 mg BID MARY JANE Administration Fenofibric Acid 135 mg 08/10/18 10:00 08/11/18 10:12 Trilipix - PO 135 mg DAILY MARY JANE Administration Heparin Sodium (Porcine) 5,000 unit 08/09/18 22:00 08/11/18 09:56 Heparin - SQ Not Given BID MARY JANE Sodium Chloride 1,000 mls @ 100 mls/hr 08/10/18 12:15 08/11/18 10:32 1/2 Normal Saline IV 100 mls/hr ASDIR MARY JANE Administration Levothyroxine Sodium 50 mcg 08/10/18 07:00 08/11/18 06:00 Synthroid - PO 50 mcg AM MARY JANE Administration Magnesium Oxide 400 mg 08/10/18 10:00 08/11/18 09:57 Mag-Ox - PO 400 mg DAILY MARY JANE Administration Metoprolol Succinate 25 mg 08/10/18 10:00 08/11/18 09:58 Toprol Xl - PO Not Given DAILY MARY JANE Ondansetron HCl 8 mg 08/11/18 07:26 08/11/18 10:56 Zofran - PO 8 mg Q8H PRN Administration NAUSEA Pantoprazole Sodium 40 mg 08/10/18 10:00 08/11/18 09:57 Protonix - PO 40 mg BID MARY JANE Administration Sertraline HCl 50 mg 08/10/18 10:00 08/11/18 10:00 Zoloft - PO 50 mg DAILY MARY JANE Administration Simethicone 80 mg 08/10/18 15:28 Mylicon Liquid - PO QID PRN GAS Sucralfate 1 gm 08/10/18 14:00 08/11/18 09:56 Carafate Oral Suspension - PO 1 gm QID MARY JANE Administration Zolpidem Tartrate 5 mg 08/09/18 22:00 08/10/18 21:22 Ambien - PO 5 mg HS PRN Administration INSOMNIA ASSESSMENT/PLAN: The patient is a 77 year old [place] female, with a past medical history of diverticulitis, complicated with abscess, (s/p Bess procedure), CABG, HLD, hypothyroidism, HTN, GERD, and anxiety, admitted for abdominal pain with nausea and decreased passing of gas. Hematology/Oncology was consulted for evaluation of anemia. Iron def anemia/Anemia of chronic disease abdominal pain s/p Bess, colectomy GERD HTN Hypothyroidism Plan: The patient is likely iron deficient based on iron that went down from 56 after the surgery to 32 today and also lower iron saturation-8 today. It suggest blood loss. We recommend Venofer. There is also a component of chronic anemia in light of chronic kidney disease/MARKIE. The patient has reversed protein ratio, we will obtain protein/immunoglobulin studies to r/o MM. Dispo: We will continue to follow the patient. Thank you for this consultative opportunity. Problem List - Problems (1) MARKIE (acute kidney injury) Code(s): N17.9 - ACUTE KIDNEY FAILURE, UNSPECIFIED (2) Abdominal pain Code(s): R10.9 - UNSPECIFIED ABDOMINAL PAIN Qualifiers: Abdominal location: upper abdomen, unspecified Qualified Code(s): R10.10 - Upper abdominal pain, unspecified (3) Colostomy in place Code(s): Z93.3 - COLOSTOMY STATUS (4) Diverticulosis Code(s): K57.90 - DVRTCLOS OF INTEST, PART UNSP, W/O PERF OR ABSCESS W/O BLEED (5) Status post Anthony's procedure Code(s): Z93.3 - COLOSTOMY STATUS (6) Anemia Code(s): D64.9 - ANEMIA, UNSPECIFIED (7) Depression with anxiety Code(s): F41.8 - OTHER SPECIFIED ANXIETY DISORDERS (8) HLD (hyperlipidemia) Code(s): E78.5 - HYPERLIPIDEMIA, UNSPECIFIED (9) HTN (hypertension) Code(s): I10 - ESSENTIAL (PRIMARY) HYPERTENSION Qualifiers: Hypertension type: essential hypertension Qualified Code(s): I10 - Essential (primary) hypertension (10) Hypothyroidism Code(s): E03.9 - HYPOTHYROIDISM, UNSPECIFIED Qualifiers: Hypothyroidism type: acquired Qualified Code(s): E03.9 - Hypothyroidism, unspecified Visit type - Emergency Visit Emergency Visit: Yes ED Registration Date: 08/09/18 Care time: The patient presented to the Emergency Department on the above date and was hospitalized for further evaluation of their emergent condition. - New Patient This patient is new to me today: Yes Date on this admission: 08/11/18 - Critical Care Critical Care patient: No
[2018-08-11] MEDS: CALCIUM 250MG/VIT-D 125 UNITS 1 COMBO TABLET PO SCH (13:48)
--- NOTE | 2018-08-11 15:52 | CONSULT ---
<Alexys Blanco - Last Filed: 08/11/18 16:15> - Consultation REQUESTING PROVIDER: CONSULT REQUEST: We have been asked to surgically evaluate this patient for ( colostomy reversal/parastomal hernia). PCP:Santino Mendieta HISTORY OF PRESENT ILLNESS: 77 y/o F w/ PMHx CKD, CAD s/p CABG ([facility], 2016), hld, htn, gerd, hypothyroidism and anxiety, admitted 08/09 after presenting with epigastric pain. Pt reports Thursday morning she began to experience sharp stomach pain that radiated into her chest. Pt reported pain was 10/, denied n/v. Was given Mylanta and Zantac in the ER with relief. States she has had similar episodes since her surgery in April (pt is s/p Anthony procedure with partial rectosigmoid resection for perforated diverticulitis leading to sepsis on 04/03/[address] Bustamante), reports improvement with Mylanta. Pt denies any n/v, reports colostomy output has been normal for the past week. Denies any abdominal pain currently, denies any issues with her colostomy. CT scan was done revealing no residual abscesses. Surgery was consulted for findings of a parasternal hernia as well as colostomy reversal. Pt states she was seen by Dr Jensen last month. Colostomy reversal was discussed and per pt Dr Jensen recommends to hold off until the end of the year to allow pt further time for healing. Pt continues at rehab ([facility]) reports she cannot be home alone and SW has been trying to get her re-instated with her [employer]. PMHx: As above PSHx: As above Home Medications Medication Instructions Recorded Albuterol 0.083% Nebulizer Nanette 1 neb NEB QID PRN 08/09/18 [Ventolin 0.083%] Atorvastatin Calcium [Lipitor] 20 mg PO HS 08/09/18 Calcium Citrate 250 mg PO DAILY 08/09/18 Diazepam [Valium] 5 mg PO DAILY 08/09/18 Fenofibrate Nanocrystallized 145 mg PO DAILY 08/09/18 [Fenofibrate] Hydrochlorothiazide [Hctz -] 12.5 mg PO DAILY 08/09/18 Levothyroxine Sodium [Levoxyl] 50 mcg PO DAILY 08/09/18 Magnesium Oxide [Magnesium] 400 mg PO DAILY 08/09/18 Metoprolol Succinate [Toprol Xl] 25 mg PO DAILY 08/09/18 Olmesartan Medoxomil [Benicar (Nf)] 20 mg PO DAILY 08/09/18 Ondansetron [Ondansetron Odt] 4 mg SL QID PRN 08/09/18 Polyvinyl Alcohol [Artificial 1 drop OD BID 08/09/18 Tears] Ranitidine [Zantac -] 300 mg PO HS 08/09/18 Sertraline HCl [Zoloft -] 50 mg PO DAILY 08/09/18 Zolpidem Tartrate [Ambien] 10 mg PO HS 08/09/18 Allergies Allergy/AdvReac Type Severity Reaction Status Date / Time No Known Allergies Allergy Verified 04/02/18 21:59 REVIEW OF SYSTEMS: CONSTITUTIONAL: Absent: fever, chills RESPIRATORY: Absent: cough, shortness of breath Absent: abdominal pain, abdominal distension, nausea, vomiting GENITOURINARY: Absent: dysuria PHYSICAL EXAM: GENERAL: Awake, alert, and fully oriented, in no acute distress. HEAD: Normal with no signs of trauma. LUNGS: No accessory muscle use. ABDOMEN: Soft, nontender, not distended, normoactive bowel sounds, no guarding, no rebound. Colostomy in place, bag with moderate amount of soft brown stool, no blood noted. Skin surrounding colostomy intact, no excoriation noted. Vital Signs Temperature 98.3 F 08/11/18 14:31 Pulse Rate 88 08/11/18 14:31 Respiratory Rate 20 08/11/18 14:31 Blood Pressure 123/63 08/11/18 14:31 O2 Sat by Pulse Oximetry (%) 97 08/10/18 10:30 Lab Results WBC 9.0 K/mm3 (4.0-10.0) 08/11/18 06:00 RBC 2.99 M/mm3 (3.60-5.2) L 08/11/18 06:00 Hgb 9.0 GM/dL (10.7-15.3) L 08/11/18 06:00 Hct 27.6 % (32.4-45.2) L 08/11/18 06:00 MCV 92.3 fl (80-96) 08/11/18 06:00 MCHC 32.6 g/dl (32.0-36.0) 08/11/18 06:00 RDW 12.9 % (11.6-15.6) 08/11/18 06:00 Plt Count 302 K/MM3 (134-434) 08/11/18 06:00 Sodium 141 mmol/L (136-145) 08/11/18 06:00 Potassium 5.4 mmol/L (3.5-5.1) H 08/11/18 06:00 Chloride 113 mmol/L (98-107) H 08/11/18 06:00 Carbon Dioxide 21 mmol/L (21-32) 08/11/18 06:00 Anion Gap 7 MMOL/L (8-16) L 08/11/18 06:00 BUN 26.7 mg/dL (7-18) H 08/11/18 06:00 Creatinine 2.3 mg/dL (0.55-1.3) H 08/11/18 06:00 Random Glucose 86 mg/dL (74-106) 08/11/18 06:00 Calcium 8.6 mg/dL (8.5-10.1) 08/11/18 06:00 Blood Type A NEGATIVE 08/09/18 11:00 Antibody Screen Negative 08/09/18 11:00 INR 1.13 (0.83-1.09) H 08/09/18 11:00 CT A/P (08/09/18): Impression: no evidence of bowel obstruction on CT. In comparison to a prior CT exam of 04/03/18 interval resection/resolution of a large pelvic fluid collection is seen. Note is also made of interval left lower quadrant ostomy. 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 On the current exam minimal to mild pericolonic soft tissue stranding is seen within the left mid pelvis- representing postsurgical and/or chronic inflammatory changes versus representing new inflammatory change. A/P: 77 y/o F w/ PMHx CKD, CAD s/p CABG ([facility], 2016), hld, htn, gerd, hypothyroidism and anxiety, admitted 08/09 after presenting with epigastric pain. A/W abdominal pain, now resolved. Tolerating soft diet. Refusing EGD/colonscopy. Per pt refusing CT w/ oral contrast as well Message sent to Dr Jensen regarding above, awaiting review of imaging and further recommendations. However, per pts last visit to office in June no plans for colostomy reversal prior to the end of the year to allow pt to heal. <KarmaBe M - Last Filed: 08/12/18 06:19> - Consultation REQUESTING PROVIDER: CONSULT REQUEST: We have been asked to surgically evaluate this patient for ( specify). PCP:Santino Mendieta HISTORY OF PRESENT ILLNESS: PMHx: PSHx: Home Medications Medication Instructions Recorded Albuterol 0.083% Nebulizer Nanette 1 neb NEB QID PRN 08/09/18 [Ventolin 0.083%] Atorvastatin Calcium [Lipitor] 20 mg PO HS 08/09/18 Calcium Citrate 250 mg PO DAILY 08/09/18 Diazepam [Valium] 5 mg PO DAILY 08/09/18 Fenofibrate Nanocrystallized 145 mg PO DAILY 08/09/18 [Fenofibrate] Hydrochlorothiazide [Hctz -] 12.5 mg PO DAILY 08/09/18 Levothyroxine Sodium [Levoxyl] 50 mcg PO DAILY 08/09/18 Magnesium Oxide [Magnesium] 400 mg PO DAILY 08/09/18 Metoprolol Succinate [Toprol Xl] 25 mg PO DAILY 08/09/18 Olmesartan Medoxomil [Benicar (Nf)] 20 mg PO DAILY 08/09/18 Ondansetron [Ondansetron Odt] 4 mg SL QID PRN 08/09/18 Polyvinyl Alcohol [Artificial 1 drop OD BID 08/09/18 Tears] Ranitidine [Zantac -] 300 mg PO HS 08/09/18 Sertraline HCl [Zoloft -] 50 mg PO DAILY 08/09/18 Zolpidem Tartrate [Ambien] 10 mg PO HS 08/09/18 Allergies Allergy/AdvReac Type Severity Reaction Status Date / Time Fish Containing Products Allergy Unknown Itching Verified 08/11/18 16:25 REVIEW OF SYSTEMS: CONSTITUTIONAL: Absent: fever, chills, diaphoresis, generalized weakness, malaise, loss of appetite, weight change CARDIOVASCULAR: Absent: chest pain, syncope, palpitations, irregular heart rate, lightheadedness , peripheral edema RESPIRATORY: Absent: cough, shortness of breath, dyspnea with exertion, wheezing, stridor, hemoptysis GASTROINTESTINAL: Absent: abdominal pain, abdominal distension, nausea, vomiting, diarrhea, constipation, melena, hematochezia GENITOURINARY: Absent: dysuria, frequency, urgency, hesitancy, hematuria, flank pain, genital pain MUSCULOSKELETAL: Absent: myalgia, arthralgia, joint swelling, back pain, neck pain SKIN: Absent: rash, itching, pallor HEMATOLOGIC/IMMUNOLOGIC: Absent: easy bleeding, easy bruising, lymphadenopathy NEUROLOGIC: Absent: headache, focal weakness, paresthesias, dizziness, unsteady gait, seizure, mental status changes, bladder or bowel incontinence PSYCHIATRIC: Absent: anxiety, depression, suicidal or homicidal ideation, hallucinations. PHYSICAL EXAM: GENERAL: Awake, alert, and fully oriented, in no acute distress. HEAD: Normal with no signs of trauma. EYES: PERRL, sclera anicteric, conjunctiva clear. NECK: Normal ROM, supple without lymphadenopathy, JVD, or masses. LUNGS: Clear to auscultation bilat anteriorly. No wheezes, and no crackles. No accessory muscle use. HEART: Regular rate and rhythm. No murmurs ABDOMEN: Soft, nontender, not distended, normoactive bowel sounds, no guarding, no rebound, no masses. No organomegaly. MUSCULOSKELETAL: Normal ROM at all joints. No bony deformities or tenderness. No CVA tenderness. UPPER EXTREMITIES: 2+ pulses, warm, well-perfused. No cyanosis. Cap refill <2 seconds. No peripheral edema. LOWER EXTREMITIES: 2+ pulses, warm, well-perfused. No calf tenderness. No peripheral edema. NEUROLOGICAL: Normal speech, gait not observed. PSYCH: Cooperative. Good eye contact. Appropriate mood and affect. SKIN: Warm, dry, normal turgor, no rashes or lesions noted. Vital Signs Temperature 98.3 F 08/11/18 18:00 Pulse Rate 79 08/11/18 18:00 Respiratory Rate 20 08/11/18 21:00 Blood Pressure 133/70 08/11/18 18:00 O2 Sat by Pulse Oximetry (%) 97 08/10/18 10:30 Lab Results WBC 9.0 K/mm3 (4.0-10.0) 08/11/18 06:00 RBC 2.99 M/mm3 (3.60-5.2) L 08/11/18 06:00 Hgb 9.0 GM/dL (10.7-15.3) L 08/11/18 06:00 Hct 27.6 % (32.4-45.2) L 08/11/18 06:00 MCV 92.3 fl (80-96) 08/11/18 06:00 MCHC 32.6 g/dl (32.0-36.0) 08/11/18 06:00 RDW 12.9 % (11.6-15.6) 08/11/18 06:00 Plt Count 302 K/MM3 (134-434) 08/11/18 06:00 Sodium 141 mmol/L (136-145) 08/11/18 06:00 Potassium 5.4 mmol/L (3.5-5.1) H 08/11/18 06:00 Chloride 113 mmol/L (98-107) H 08/11/18 06:00 Carbon Dioxide 21 mmol/L (21-32) 08/11/18 06:00 Anion Gap 7 MMOL/L (8-16) L 08/11/18 06:00 BUN 26.7 mg/dL (7-18) H 08/11/18 06:00 Creatinine 2.3 mg/dL (0.55-1.3) H 08/11/18 06:00 Random Glucose 86 mg/dL (74-106) 08/11/18 06:00 Calcium 8.6 mg/dL (8.5-10.1) 08/11/18 06:00 Blood Type A NEGATIVE 08/09/18 11:00 Antibody Screen Negative 08/09/18 11:00 INR 1.13 (0.83-1.09) H 08/09/18 11:00
[2018-08-11] MEDS ORDERED: IRON SUCROSE INJECTION 100 MG in SODIUM CHLORIDE 95 ML IVPB ONE (17:40)
--- NOTE | 2018-08-11 18:05 | PN ---
Teaching Attending Note Name of Resident: Georgie Paz ATTENDING PHYSICIAN STATEMENT I saw and evaluated the patient. I reviewed the resident's note and discussed the case with the resident. I agree with the resident's findings and plan as documented. SUBJECTIVE: Patient seen and examined History of diverticulitis with abscess formation in April 2018. Underwent surgery ( Anthony procedure) with colostomy At time of discharge serum Fe++ -56, creatinine 1.3 , low TIBC. (04/13/18) Currently with serum Fe++- 32 , TIBC-389, and creatinine 2.3. In April , chronic illness with diverticulitis and abscess formation. Current fall in serum iron with Iron saturation of 8% suggest component of blood loss anemia . In addition MARKIE superimposed upon CKD Both blood loss picture and MARKIE likely contributing to current anemia. Discharge Hb 04/13/18---> 9.8 g and currently Hb- 9.0 Last Vital Signs Temp Pulse Resp BP Pulse Ox 98.3 F 88 20 123/63 97 08/11/18 14:31 08/11/18 14:31 08/11/18 14:31 08/11/18 14:31 08/10/18 10:30 HEENT: NATA, EOM Intact Oropharynx: No thrush, No mucositis,edentulous Neck: Supple Nodes: Without adenopathy Breasts: Without masses Cor: RSR, No murmurs, No gallops Lungs: Clear to P&A Abd: Soft, Normal bowel sounds, No organomegaly, surgical vertical scar, colostomy Ext:No significant edema Skin: No rashes, Integument intact CBC, BMP 08/11/18 06:00 08/11/18 06:00 Current Medications Generic Name Dose Route Start Last Admin Trade Name Freq PRN Reason Stop Dose Admin Acetaminophen 650 mg 08/10/18 10:39 08/11/18 06:57 Tylenol - PO 650 mg Q4H PRN Administration SEVERE PAIN SCALE 6-10 Albuterol Sulfate 1 amp 08/09/18 16:06 Ventolin 0.083% Nebulizer Soln - NEB Q6H PRN SHORT OF BREATH/WHEEZING Albuterol Sulfate 1 amp 08/10/18 14:30 Ventolin 0.083% Nebulizer Soln - NEB Q1H PRN SHORT OF BREATH/WHEEZING Artificial Tears 1 drop 08/09/18 22:00 08/11/18 10:51 Artificial Tears OD 1 drop BID [facility] Administration Atorvastatin Calcium 20 mg 08/09/18 22:00 08/10/18 21:22 Lipitor - PO 20 mg HS [facility] Administration Calcium/Vitamin D 1 tab 08/10/18 10:00 08/11/18 13:48 Oscal 250 Mg+D - PO 1 tab DAILY [facility] Administration Diazepam 5 mg 08/10/18 22:00 08/11/18 09:58 Valium - PO 5 mg BID [facility] Administration Fenofibric Acid 135 mg 08/10/18 10:00 08/11/18 10:12 Trilipix - PO 135 mg DAILY [facility] Administration Heparin Sodium (Porcine) 5,000 unit 08/09/18 22:00 08/11/18 09:56 Heparin - SQ Not Given BID [facility] Sodium Chloride 1,000 mls @ 100 mls/hr 08/10/18 12:15 08/11/18 13:50 1/2 Normal Saline IV Not Given ASDIR [facility] Levothyroxine Sodium 50 mcg 08/10/18 07:00 08/11/18 06:00 Synthroid - PO 50 mcg AM [facility] Administration Magnesium Oxide 400 mg 08/10/18 10:00 08/11/18 09:57 Mag-Ox - PO 400 mg DAILY [facility] Administration Metoprolol Succinate 25 mg 08/10/18 10:00 08/11/18 09:58 Toprol Xl - PO Not Given DAILY [facility] Ondansetron HCl 8 mg 08/11/18 07:26 08/11/18 10:56 Zofran - PO 8 mg Q8H PRN Administration NAUSEA Pantoprazole Sodium 40 mg 08/10/18 10:00 08/11/18 09:57 Protonix - PO 40 mg BID [facility] Administration Sertraline HCl 50 mg 08/10/18 10:00 08/11/18 10:00 Zoloft - PO 50 mg DAILY [facility] Administration Simethicone 80 mg 08/10/18 15:28 Mylicon Liquid - PO QID PRN GAS Sucralfate 1 gm 08/10/18 14:00 08/11/18 13:47 Carafate Oral Suspension - PO 1 gm QID [facility] Administration Zolpidem Tartrate 5 mg 08/09/18 22:00 08/10/18 21:22 Ambien - PO 5 mg HS PRN Administration INSOMNIA OBJECTIVE: ASSESSMENT AND PLAN: Impression; Anemia History of diverticulitis with abscess formation in April 2018. Underwent surgery ( Anthony procedure) with colostomy At time of discharge serum Fe++ -56, creatinine 1.3 , low TIBC. (04/13/18) Currently with serum Fe++- 32 , TIBC-389, and creatinine 2.3. In April , chronic illness with diverticulitis and abscess formation. Current fall in serum iron with Iron saturation of 8% suggest component of blood loss anemia . In addition MARKIE superimposed upon CKD Both blood loss picture and MARKIE likely contributing to current anemia. Discharge Hb 04/13/18---> 9.8 g and currently Hb- 9.0
--- NOTE | 2018-08-11 21:18 | PN.GI ---
GI Progress Note Subjective: GI NOte: Refused CT scan and told me this morning that she no longer had pain and wanted to eat. Her diet was advanced - Objective Vital Signs: Vital Signs Temperature 98.3 F 08/11/18 18:00 Pulse Rate 79 08/11/18 18:00 Respiratory Rate 20 08/11/18 18:00 Blood Pressure 133/70 08/11/18 18:00 O2 Sat by Pulse Oximetry (%) 97 08/10/18 10:30 Laboratory Tests 08/11/18 08/11/18 06:00 06:00 WBC 9.0 BUN 26.7 H Creatinine 2.3 H Total Bilirubin 0.2 AST 29 ALT 26 Alkaline Phosphatase 65 Albumin 3.2 L Constitutional: Anxious Gastrointestinal Inspection: Yes: Other (colostomy functioning) ...Auscultate: Yes: Normoactive Bowel Sounds ...Palpate: Yes: Soft, Other (nontender) Labs: CBC, BMP 08/11/18 06:00 08/11/18 06:00 INR, PTT INR 1.13 (0.83-1.09) H 08/09/18 11:00 Assessment/Plan Impression: - Given the resolution of pain th diet was advanced - 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 Plan: Continue IV resuscitation- renal function improving CT scan with oral contrast if pain recurs. Continue empiric PPI therapy Problem List - Problems (1) Diverticulosis Code(s): K57.90 - DVRTCLOS OF INTEST, PART UNSP, W/O PERF OR ABSCESS W/O BLEED (2) Colostomy in place Code(s): Z93.3 - COLOSTOMY STATUS (3) Abdominal pain Code(s): R10.9 - UNSPECIFIED ABDOMINAL PAIN Qualifiers: Abdominal location: upper abdomen, unspecified Qualified Code(s): R10.10 - Upper abdominal pain, unspecified (4) Hyperkalemia Code(s): E87.5 - HYPERKALEMIA (5) Status post Anthony's procedure Code(s): Z93.3 - COLOSTOMY STATUS (6) Depression with anxiety Code(s): F41.8 - OTHER SPECIFIED ANXIETY DISORDERS (7) HLD (hyperlipidemia) Code(s): E78.5 - HYPERLIPIDEMIA, UNSPECIFIED (8) HTN (hypertension) Code(s): I10 - ESSENTIAL (PRIMARY) HYPERTENSION Qualifiers: Hypertension type: essential hypertension Qualified Code(s): I10 - Essential (primary) hypertension (9) Hypothyroidism Code(s): E03.9 - HYPOTHYROIDISM, UNSPECIFIED Qualifiers: Hypothyroidism type: acquired Qualified Code(s): E03.9 - Hypothyroidism, unspecified
[2018-08-11] MEDS: ZOLPIDEM TARTRATE 5 MG TABLET PO PRN (21:29)
[2018-08-11] MEDS: ATORVASTATIN CA 20 MG TABLET (FP) PO SCH (21:29)
[2018-08-12] MEDS: LEVOTHYROXINE NA 50 MCG TABLET (FP) PO SCH (06:13)
[2018-08-12] MEDS ORDERED: ONDANSETRON 4 MG TABLET PO ONE (07:35)
[2018-08-12] MEDS ORDERED: PT OWN MED DRAWER 7, Y5N ONE ×2 (07:39→09:55)
[2018-08-12] MEDS: ONDANSETRON 8 MG TABLET (FP) PO PRN (07:41)
[2018-08-12 08:17] LABS: BASO % 0.2 % (0-2.0); EOS % 2.9 % (0-4.5); HEMATOCRIT 26.3 % (32.4-45.2); HEMOGLOBIN 8.5 GM/dL (10.7-15.3); LYMPH % 28.2 % (8-40); MCH 29.6 pg (25.7-33.7); MCHC 32.5 g/dl (32.0-36.0); MEAN PLT VOLUME 8.3 fl (7.5-11.1); MONO % 10.9 % (3.8-10.2); NEUT % 57.8 % (42.8-82.8); RBC 2.89 M/mm3 (3.60-5.2); RDW 12.9 % (11.6-15.6); WHITE BLOOD COUNT 7.7 K/mm3 (4.0-10.0)
[2018-08-12 08:54] LABS: BILIRUBIN,TOTAL 0.2 mg/dL (0.2-1); BLOOD UREA NITROGEN 22.8 mg/dL (7-18); CALCIUM 8.4 mg/dL (8.5-10.1); CREATININE 2.3 mg/dL (0.55-1.3); POTASSIUM 5.3 mmol/L (3.5-5.1); TOT PROT 6.8 g/dl (6.4-8.2)
[2018-08-12 09:00] LABS: PLATELET COUNT 308 K/MM3 (134-434)
[2018-08-12] MEDS: SUCRALFATE 1 GM/10 ML UNIT DOSE CUPS PO SCH ×4 (10:10→21:15)
[2018-08-12] MEDS: FENOFIBRIC ACID 135 MG CAP PO SCH (10:12)
[2018-08-12] MEDS: MAGNESIUM OXIDE 400 MG TABLET (FP) PO SCH ×2 (10:12→10:42)
[2018-08-12] MEDS: diazePAM 5 MG TABLET PO SCH ×2 (10:13→21:15)
[2018-08-12] MEDS: PANTOPRAZOLE 40 MG TABLET (FP) PO SCH ×2 (10:13→21:15)
[2018-08-12] MEDS: SERTRALINE HCL 50 MG TABLET (FP) PO SCH (10:13)
[2018-08-12] MEDS: CALCIUM 250MG/VIT-D 125 UNITS 1 COMBO TABLET PO SCH ×2 (10:14→10:44)
[2018-08-12] MEDS: HEPARIN NA (PORCINE) 5,000 UNITS/ML 1ML VIAL SQ SCH ×2 (10:38→21:16)
[2018-08-12] MEDS: metoPROLOL SUCCINATE 25 MG TAB.SR.24H (FP) PO SCH (10:39)
[2018-08-12] MEDS: SODIUM CHLORIDE 0.45% 1,000 ML IV SCH ×3 (10:50→21:16)
[2018-08-12] MEDS: ARTIFICIAL TEARS (POLYVINYL ALCOHOL) OPTH DROPS OD SCH ×3 (12:00→21:16)
--- NOTE | 2018-08-12 13:06 | PN ---
Progress Note, Physician Chief Complaint: Abdominal Pain History of Present Illness: Previous notes and events reviewed awake and alert NAD no complaints of abdominal pain - Current Medication List Current Medications: Active Medications Acetaminophen (Tylenol -) 650 mg PO Q4H PRN PRN Reason: SEVERE PAIN SCALE 6-10 Last Admin: 08/11/18 06:57 Dose: 650 mg Albuterol Sulfate (Ventolin 0.083% Nebulizer Soln -) 1 amp NEB Q6H PRN PRN Reason: SHORT OF BREATH/WHEEZING Albuterol Sulfate (Ventolin 0.083% Nebulizer Soln -) 1 amp NEB Q1H PRN PRN Reason: SHORT OF BREATH/WHEEZING Artificial Tears (Artificial Tears) 1 drop OD BID [facility] Last Admin: 08/11/18 21:29 Dose: 1 drop Atorvastatin Calcium (Lipitor -) 20 mg PO HS [facility] Last Admin: 08/11/18 21:29 Dose: 20 mg Calcium/Vitamin D (Oscal 250 Mg+D -) 1 tab PO DAILY [facility] Last Admin: 08/12/18 10:44 Dose: Not Given Diazepam (Valium -) 5 mg PO BID [facility] Last Admin: 08/12/18 10:13 Dose: 5 mg Fenofibric Acid (Trilipix -) 135 mg PO DAILY [facility] Last Admin: 08/12/18 10:12 Dose: 135 mg Heparin Sodium (Porcine) (Heparin -) 5,000 unit SQ BID [facility] Last Admin: 08/12/18 10:38 Dose: Not Given Sodium Chloride (1/2 Normal Saline) 1,000 mls @ 100 mls/hr IV ASDIR [facility] Last Admin: 08/12/18 10:50 Dose: 100 mls/hr Levothyroxine Sodium (Synthroid -) 50 mcg PO AM [facility] Last Admin: 08/12/18 06:13 Dose: 50 mcg Magnesium Oxide (Mag-Ox -) 400 mg PO DAILY [facility] Last Admin: 08/12/18 10:42 Dose: Not Given Metoprolol Succinate (Toprol Xl -) 25 mg PO DAILY [facility] Last Admin: 08/12/18 10:39 Dose: Not Given Ondansetron HCl (Zofran -) 8 mg PO Q8H PRN PRN Reason: NAUSEA Pantoprazole Sodium (Protonix -) 40 mg PO BID [facility] Last Admin: 08/12/18 10:13 Dose: 40 mg Sertraline HCl (Zoloft -) 50 mg PO DAILY [facility] Last Admin: 08/12/18 10:13 Dose: 50 mg Simethicone (Mylicon Liquid -) 80 mg PO QID PRN PRN Reason: GAS Sucralfate (Carafate Oral Suspension -) 1 gm PO QID [facility] Last Admin: 08/12/18 10:10 Dose: 1 gm Zolpidem Tartrate (Ambien -) 5 mg PO HS PRN PRN Reason: INSOMNIA Last Admin: 08/11/18 21:29 Dose: 5 mg - Objective Vital Signs: Vital Signs Temperature 98.4 F 08/12/18 06:00 Pulse Rate 76 08/12/18 09:30 Respiratory Rate 18 08/12/18 09:30 Blood Pressure 132/60 08/12/18 09:30 O2 Sat by Pulse Oximetry (%) 97 08/10/18 10:30 Constitutional: Yes: No Distress, Calm Eyes: Yes: Conjunctiva Clear HENT: Yes: Atraumatic Cardiovascular: Yes: Regular Rate and Rhythm Respiratory: Yes: Regular, CTA Bilaterally Gastrointestinal: Yes: Normal Bowel Sounds, Soft ...Rectal Exam: Yes: Other (colostomy) Musculoskeletal: Yes: Muscle Weakness Extremities: Yes: WNL Edema: No Neurological: Yes: Alert, Oriented Psychiatric: Yes: Alert, Oriented Labs: CBC, BMP 08/12/18 06:15 08/12/18 06:15 INR, PTT INR 1.13 (0.83-1.09) H 08/09/18 11:00 Problem List - Problems (1) MARKIE (acute kidney injury) Assessment/Plan: -renal on board -BUN/Cr 22.8/2.3 -monitor renal function Code(s): N17.9 - ACUTE KIDNEY FAILURE, UNSPECIFIED (2) Abdominal pain Assessment/Plan: -GI on board -no complaints of pain verbalized -if pain re-occur will do CT scan -continue Pantoprazole -Sucralfate -IV hydration Code(s): R10.9 - UNSPECIFIED ABDOMINAL PAIN Qualifiers: Abdominal location: upper abdomen, unspecified Qualified Code(s): R10.10 - Upper abdominal pain, unspecified (3) Colostomy in place Assessment/Plan: -colostomy following Bess procedure for perforated diverticulitis with abscesses Code(s): Z93.3 - COLOSTOMY STATUS (4) Status post Anthony's procedure Assessment/Plan: -colostomy Code(s): Z93.3 - COLOSTOMY STATUS (5) HLD (hyperlipidemia) Assessment/Plan: -Atorvastatin Code(s): E78.5 - HYPERLIPIDEMIA, UNSPECIFIED (6) HTN (hypertension) Assessment/Plan: -monitor BP Code(s): I10 - ESSENTIAL (PRIMARY) HYPERTENSION Qualifiers: Hypertension type: essential hypertension Qualified Code(s): I10 - Essential (primary) hypertension (7) Hypothyroidism Assessment/Plan: -Levothyroxine Code(s): E03.9 - HYPOTHYROIDISM, UNSPECIFIED Qualifiers: Hypothyroidism type: acquired Qualified Code(s): E03.9 - Hypothyroidism, unspecified (8) Hyperkalemia Assessment/Plan: -Improving -K 5.3 -monitor electrolyte daily -renal on board Code(s): E87.5 - HYPERKALEMIA Assessment/Plan see problem list
[2018-08-12] MEDS: ACETAMINOPHEN 325 MG TABLET (FP) PO PRN (13:19)
[2018-08-12] MEDS ORDERED: FUROSEMIDE 40 MG TABLET (FP) PO ONE (13:45)
--- NOTE | 2018-08-12 13:45 | PN ---
Progress Note, Physician History of Present Illness: Pt seen and examined at bedside. She is awake and alert. She is tolerating diet. She feels that abd pain is improved. - Current Medication List Current Medications: Active Medications Acetaminophen (Tylenol -) 650 mg PO Q4H PRN PRN Reason: SEVERE PAIN SCALE 6-10 Last Admin: 08/12/18 13:19 Dose: 650 mg Albuterol Sulfate (Ventolin 0.083% Nebulizer Soln -) 1 amp NEB Q6H PRN PRN Reason: SHORT OF BREATH/WHEEZING Albuterol Sulfate (Ventolin 0.083% Nebulizer Soln -) 1 amp NEB Q1H PRN PRN Reason: SHORT OF BREATH/WHEEZING Artificial Tears (Artificial Tears) 1 drop OD BID [facility] Last Admin: 08/11/18 21:29 Dose: 1 drop Atorvastatin Calcium (Lipitor -) 20 mg PO HS [facility] Last Admin: 08/11/18 21:29 Dose: 20 mg Calcium/Vitamin D (Oscal 250 Mg+D -) 1 tab PO DAILY [facility] Last Admin: 08/12/18 10:44 Dose: Not Given Diazepam (Valium -) 5 mg PO BID [facility] Last Admin: 08/12/18 10:13 Dose: 5 mg Fenofibric Acid (Trilipix -) 135 mg PO DAILY [facility] Last Admin: 08/12/18 10:12 Dose: 135 mg Heparin Sodium (Porcine) (Heparin -) 5,000 unit SQ BID [facility] Last Admin: 08/12/18 10:38 Dose: Not Given Sodium Chloride (1/2 Normal Saline) 1,000 mls @ 100 mls/hr IV ASDIR [facility] Last Admin: 08/12/18 13:24 Dose: Not Given Levothyroxine Sodium (Synthroid -) 50 mcg PO AM [facility] Last Admin: 08/12/18 06:13 Dose: 50 mcg Magnesium Oxide (Mag-Ox -) 400 mg PO DAILY [facility] Last Admin: 08/12/18 10:42 Dose: Not Given Metoprolol Succinate (Toprol Xl -) 25 mg PO DAILY [facility] Last Admin: 08/12/18 10:39 Dose: Not Given Ondansetron HCl (Zofran -) 8 mg PO Q8H PRN PRN Reason: NAUSEA Pantoprazole Sodium (Protonix -) 40 mg PO BID [facility] Last Admin: 08/12/18 10:13 Dose: 40 mg Sertraline HCl (Zoloft -) 50 mg PO DAILY [facility] Last Admin: 08/12/18 10:13 Dose: 50 mg Simethicone (Mylicon Liquid -) 80 mg PO QID PRN PRN Reason: GAS Sucralfate (Carafate Oral Suspension -) 1 gm PO QID [facility] Last Admin: 08/12/18 10:10 Dose: 1 gm Zolpidem Tartrate (Ambien -) 5 mg PO HS PRN PRN Reason: INSOMNIA Last Admin: 08/11/18 21:29 Dose: 5 mg - Objective Vital Signs: Vital Signs Temperature 98.4 F 08/12/18 06:00 Pulse Rate 76 08/12/18 09:30 Respiratory Rate 18 08/12/18 09:30 Blood Pressure 132/60 08/12/18 09:30 O2 Sat by Pulse Oximetry (%) 97 08/10/18 10:30 Constitutional: Yes: Calm Eyes: Yes: Conjunctiva Clear HENT: Yes: Atraumatic Neck: Yes: Supple Cardiovascular: Yes: S1, S2 Respiratory: Yes: CTA Bilaterally Gastrointestinal: Yes: Normal Bowel Sounds, Soft, Other (colostomy) Genitourinary: Yes: WNL Musculoskeletal: Yes: WNL Edema: No Neurological: Yes: Oriented Psychiatric: Yes: Oriented Labs: CBC, BMP 08/12/18 06:15 08/12/18 06:15 INR, PTT INR 1.13 (0.83-1.09) H 08/09/18 11:00 Problem List - Problems (1) MARKIE (acute kidney injury) Code(s): N17.9 - ACUTE KIDNEY FAILURE, UNSPECIFIED (2) Abdominal pain Code(s): R10.9 - UNSPECIFIED ABDOMINAL PAIN Qualifiers: Abdominal location: upper abdomen, unspecified Qualified Code(s): R10.10 - Upper abdominal pain, unspecified (3) Hyperkalemia Code(s): E87.5 - HYPERKALEMIA Assessment/Plan Current Medications Generic Name Dose Route Start Last Admin Trade Name Freq PRN Reason Stop Dose Admin Acetaminophen 650 mg 08/10/18 10:39 08/12/18 13:19 Tylenol - PO 650 mg Q4H PRN Administration SEVERE PAIN SCALE 6-10 Albuterol Sulfate 1 amp 08/09/18 16:06 Ventolin 0.083% Nebulizer Soln - NEB Q6H PRN SHORT OF BREATH/WHEEZING Albuterol Sulfate 1 amp 08/10/18 14:30 Ventolin 0.083% Nebulizer Soln - NEB Q1H PRN SHORT OF BREATH/WHEEZING Artificial Tears 1 drop 08/09/18 22:00 08/11/18 21:29 Artificial Tears OD 1 drop BID [facility] Administration Atorvastatin Calcium 20 mg 08/09/18 22:00 08/11/18 21:29 Lipitor - PO 20 mg HS [facility] Administration Calcium/Vitamin D 1 tab 08/10/18 10:00 08/12/18 10:44 Oscal 250 Mg+D - PO Not Given DAILY [facility] Diazepam 5 mg 08/10/18 22:00 08/12/18 10:13 Valium - PO 5 mg BID [facility] Administration Fenofibric Acid 135 mg 08/10/18 10:00 08/12/18 10:12 Trilipix - PO 135 mg DAILY [facility] Administration Heparin Sodium (Porcine) 5,000 unit 08/09/18 22:00 08/12/18 10:38 Heparin - SQ Not Given BID [facility] Sodium Chloride 1,000 mls @ 100 mls/hr 08/10/18 12:15 08/12/18 13:24 1/2 Normal Saline IV Not Given ASDIR [facility] Levothyroxine Sodium 50 mcg 08/10/18 07:00 08/12/18 06:13 Synthroid - PO 50 mcg AM [facility] Administration Magnesium Oxide 400 mg 08/10/18 10:00 08/12/18 10:42 Mag-Ox - PO Not Given DAILY [facility] Metoprolol Succinate 25 mg 08/10/18 10:00 08/12/18 10:39 Toprol Xl - PO Not Given DAILY [facility] Ondansetron HCl 8 mg 08/12/18 08:08 Zofran - PO Q8H PRN NAUSEA Pantoprazole Sodium 40 mg 08/10/18 10:00 08/12/18 10:13 Protonix - PO 40 mg BID [facility] Administration Sertraline HCl 50 mg 08/10/18 10:00 08/12/18 10:13 Zoloft - PO 50 mg DAILY [facility] Administration Simethicone 80 mg 08/10/18 15:28 Mylicon Liquid - PO QID PRN GAS Sucralfate 1 gm 08/10/18 14:00 08/12/18 10:10 Carafate Oral Suspension - PO 1 gm QID [facility] Administration Zolpidem Tartrate 5 mg 08/09/18 22:00 08/11/18 21:29 Ambien - PO 5 mg HS PRN Administration INSOMNIA Impression 1. MARKIE 2. hyperkalemia 3. abdominal pain 4. hx of perforated diverticula 5. acidosis 6. hld 7. CAD 8. HTN 9. anxiety 10. 1.3 cm left adrenal nodule Plan - cont with fluids - renal function is improving - potassium improving - lasix will help waste potassium - do not give kayexylate
[2018-08-12] MEDS ORDERED: SODIUM CHLORIDE 500 ML IV STA (13:47)
--- NOTE | 2018-08-12 21:14 | PN.GI ---
GI Progress Note Subjective: GI Note: Tolerating diet. No abdominal pain but does feel gassy - Objective Vital Signs: Vital Signs Temperature 99.6 F 08/12/18 18:00 Pulse Rate 77 08/12/18 18:00 Respiratory Rate 20 08/12/18 18:00 Blood Pressure 121/67 08/12/18 18:00 O2 Sat by Pulse Oximetry (%) 98 08/12/18 09:00 Laboratory Tests 08/12/18 06:15 BUN 22.8 H Creatinine 2.3 H LD Total 149 Constitutional: No Distress ...Auscultate: Yes: Normoactive Bowel Sounds ...Palpate: Yes: Soft, Other (nontender) ...Percussion: Yes: Tympanitic Labs: CBC, BMP 08/12/18 06:15 08/12/18 06:15 INR, PTT INR 1.13 (0.83-1.09) H 08/09/18 11:00 Assessment/Plan Impression: - Resolved abdominal pain - 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 Plan: Continue IV resuscitation- renal function improving Continue empiric PPI therapy Ambulation encouraged to relieve abdominal gas Problem List - Problems (1) Diverticulosis Code(s): K57.90 - DVRTCLOS OF INTEST, PART UNSP, W/O PERF OR ABSCESS W/O BLEED (2) Colostomy in place Code(s): Z93.3 - COLOSTOMY STATUS (3) Abdominal pain Code(s): R10.9 - UNSPECIFIED ABDOMINAL PAIN Qualifiers: Abdominal location: upper abdomen, unspecified Qualified Code(s): R10.10 - Upper abdominal pain, unspecified (4) Hyperkalemia Code(s): E87.5 - HYPERKALEMIA (5) Status post Anthony's procedure Code(s): Z93.3 - COLOSTOMY STATUS (6) Depression with anxiety Code(s): F41.8 - OTHER SPECIFIED ANXIETY DISORDERS (7) HLD (hyperlipidemia) Code(s): E78.5 - HYPERLIPIDEMIA, UNSPECIFIED (8) HTN (hypertension) Code(s): I10 - ESSENTIAL (PRIMARY) HYPERTENSION Qualifiers: Hypertension type: essential hypertension Qualified Code(s): I10 - Essential (primary) hypertension (9) Hypothyroidism Code(s): E03.9 - HYPOTHYROIDISM, UNSPECIFIED Qualifiers: Hypothyroidism type: acquired Qualified Code(s): E03.9 - Hypothyroidism, unspecified
[2018-08-12] MEDS: ZOLPIDEM TARTRATE 5 MG TABLET PO PRN (21:15)
[2018-08-12] MEDS: ATORVASTATIN CA 20 MG TABLET (FP) PO SCH (21:15)
[2018-08-13 04:20] LABS: IGG QN SERUM 1127 mg/dL (700-1600); IGM IMMUNOGLOBULIN 84 mg/dL (26-217)
[2018-08-13] MEDS: LEVOTHYROXINE NA 50 MCG TABLET (FP) PO SCH (06:14)
[2018-08-13 07:42] LABS: BILIRUBIN,TOTAL 0.3 mg/dL (0.2-1); BLOOD UREA NITROGEN 24.5 mg/dL (7-18); CALCIUM 8.5 mg/dL (8.5-10.1); CREATININE 2.5 mg/dL (0.55-1.3); POTASSIUM 4.9 mmol/L (3.5-5.1); TOT PROT 6.9 g/dl (6.4-8.2)
[2018-08-13] MEDS: ONDANSETRON 4 MG TABLET PO PRN ×2 (07:52→18:15)
[2018-08-13 08:18] LABS: BASO % 0.3 % (0-2.0); EOS % 2.2 % (0-4.5); HEMATOCRIT 25.6 % (32.4-45.2); HEMOGLOBIN 8.5 GM/dL (10.7-15.3); LYMPH % 30.9 % (8-40); MCH 30.1 pg (25.7-33.7); MCHC 33.2 g/dl (32.0-36.0); MEAN CELL VOLUME 90.5 fl (80-96); MEAN PLT VOLUME 8.2 fl (7.5-11.1); MONO % 10.2 % (3.8-10.2); NEUT % 56.4 % (42.8-82.8); PLATELET COUNT 312 K/MM3 (134-434); RBC 2.83 M/mm3 (3.60-5.2); RDW 12.8 % (11.6-15.6); WHITE BLOOD COUNT 8.8 K/mm3 (4.0-10.0)
[2018-08-13] MEDS: SODIUM CHLORIDE 0.45% 1,000 ML IV SCH ×3 (10:30→22:50)
[2018-08-13] MEDS ORDERED: PT OWN MED DRAWER 7, Y5N ONE (10:40)
[2018-08-13] MEDS: PANTOPRAZOLE 40 MG TABLET (FP) PO SCH ×2 (10:41→22:48)
[2018-08-13] MEDS: diazePAM 5 MG TABLET PO SCH ×2 (10:41→22:48)
[2018-08-13] MEDS: SERTRALINE HCL 50 MG TABLET (FP) PO SCH (10:41)
[2018-08-13] MEDS: SUCRALFATE 1 GM/10 ML UNIT DOSE CUPS PO SCH ×4 (10:41→22:47)
[2018-08-13] MEDS: metoPROLOL SUCCINATE 25 MG TAB.SR.24H (FP) PO SCH (10:41)
[2018-08-13] MEDS: CALCIUM 250MG/VIT-D 125 UNITS 1 COMBO TABLET PO SCH (10:41)
[2018-08-13] MEDS: FENOFIBRIC ACID 135 MG CAP PO SCH (10:42)
[2018-08-13] MEDS: MAGNESIUM OXIDE 400 MG TABLET (FP) PO SCH (10:42)
[2018-08-13] MEDS: ARTIFICIAL TEARS (POLYVINYL ALCOHOL) OPTH DROPS OD SCH ×2 (10:47→22:47)
[2018-08-13] MEDS: HEPARIN NA (PORCINE) 5,000 UNITS/ML 1ML VIAL SQ SCH ×3 (10:47→22:52)
--- NOTE | 2018-08-13 15:01 | PN ---
Progress Note (short form) - Note Progress Note: PATIENT OF DR RIVKA TRIPLETT D/W DR JAQUEZ WILL TRANSFER TO HER SERVICE
--- NOTE | 2018-08-13 15:03 | PN ---
Physical Exam: SUBJECTIVE: Patient seen and examined. She states that bloating improved today, less abdominal discomfort. OBJECTIVE: Vital Signs Period Temp Pulse Resp BP Sys/Andrews Pulse Ox Last 24 Hr 98.2 F-99.6 F 76-88 20-20 116-144/60-70 100 GENERAL: The patient is awake, alert, and fully oriented, in no acute distress. HEAD: Normal with no signs of trauma. EYES: Extraocular movements intact, sclera anicteric, conjunctiva clear. ENT: Oropharynx clear without exudates, moist mucous membranes. NECK: supple LUNGS: Clear to auscultation bilaterally, no wheezes, no crackles. HEART: Regular rate and rhythm, S1, S2 without murmur, rub or gallop. ABDOMEN: Soft, nontender, nondistended, no guarding, no rebound, colostomy-bag changed, nl, no tenderness to palpation. EXTREMITIES: 2+ pulses, warm, no edema. NEUROLOGICAL: Normal speech, gait not observed. PSYCH: Normal mood, normal affect. SKIN: Warm, dry, normal turgor, no rashes. Laboratory Results - last 24 hr 08/12/18 08/12/18 08/12/18 06:15 06:15 17:21 WBC RBC Hgb Hct MCV MCH MCHC RDW Plt Count MPV Absolute Neuts (auto) Neutrophils % Lymphocytes % Monocytes % Eosinophils % Basophils % Nucleated RBC % Haptoglobin 153 Sodium Potassium Chloride Carbon Dioxide Anion Gap BUN Creatinine Est GFR (CKD-EPI)AfAm Est GFR (CKD-EPI)NonAf POC Glucometer 68 Random Glucose Calcium Total Bilirubin AST ALT Alkaline Phosphatase Total Protein Albumin IgG 1127 IgM 84 08/13/18 08/13/18 06:26 06:26 WBC 8.8 RBC 2.83 L Hgb 8.5 L Hct 25.6 L MCV 90.5 MCH 30.1 MCHC 33.2 RDW 12.8 Plt Count 312 MPV 8.2 Absolute Neuts (auto) 5.0 Neutrophils % 56.4 Lymphocytes % 30.9 Monocytes % 10.2 Eosinophils % 2.2 Basophils % 0.3 Nucleated RBC % 0 Haptoglobin Sodium 143 Potassium 4.9 Chloride 113 H Carbon Dioxide 21 Anion Gap 9 BUN 24.5 H Creatinine 2.5 H Est GFR (CKD-EPI)AfAm 21.08 Est GFR (CKD-EPI)NonAf 18.19 POC Glucometer Random Glucose 93 Calcium 8.5 Total Bilirubin 0.3 AST 36 ALT 26 Alkaline Phosphatase 62 Total Protein 6.9 Albumin 3.0 L IgG IgM Active Medications Generic Name Dose Route Start Last Admin Trade Name Aby PRN Reason Stop Dose Admin Acetaminophen 650 mg 08/10/18 10:39 08/12/18 13:19 Tylenol - PO 650 mg Q4H PRN Administration SEVERE PAIN SCALE 6-10 Albuterol Sulfate 1 amp 08/09/18 16:06 Ventolin 0.083% Nebulizer Soln - NEB Q6H PRN SHORT OF BREATH/WHEEZING Albuterol Sulfate 1 amp 08/10/18 14:30 Ventolin 0.083% Nebulizer Soln - NEB Q1H PRN SHORT OF BREATH/WHEEZING Artificial Tears 1 drop 08/09/18 22:00 08/13/18 10:47 Artificial Tears OD 1 drop BID MARY JANE Administration Atorvastatin Calcium 20 mg 08/09/18 22:00 08/12/18 21:15 Lipitor - PO 20 mg HS MARY JANE Administration Calcium/Vitamin D 1 tab 08/10/18 10:00 08/13/18 10:41 Oscal 250 Mg+D - PO 1 tab DAILY MARY JANE Administration Diazepam 5 mg 08/10/18 22:00 08/13/18 10:41 Valium - PO 5 mg BID MARY JANE Administration Fenofibric Acid 135 mg 08/10/18 10:00 08/13/18 10:42 Trilipix - PO 135 mg DAILY MARY JANE Administration Heparin Sodium (Porcine) 5,000 unit 08/09/18 22:00 08/13/18 10:47 Heparin - SQ Not Given BID MARY JANE Sodium Chloride 1,000 mls @ 125 mls/hr 08/12/18 13:47 08/13/18 10:30 1/2 Normal Saline IV 125 mls/hr ASDIR MARY JANE Administration Levothyroxine Sodium 50 mcg 08/10/18 07:00 08/13/18 06:14 Synthroid - PO 50 mcg AM MARY JANE Administration Magnesium Oxide 400 mg 08/10/18 10:00 08/13/18 10:42 Mag-Ox - PO 400 mg DAILY MARY JANE Administration Metoprolol Succinate 25 mg 08/10/18 10:00 08/13/18 10:41 Toprol Xl - PO 25 mg DAILY MARY JANE Administration Ondansetron HCl 8 mg 08/12/18 08:08 08/13/18 07:52 Zofran - PO 8 mg Q8H PRN Administration NAUSEA Pantoprazole Sodium 40 mg 08/10/18 10:00 08/13/18 10:41 Protonix - PO 40 mg BID MARY JANE Administration Sertraline HCl 50 mg 08/10/18 10:00 08/13/18 10:41 Zoloft - PO 50 mg DAILY MARY JANE Administration Simethicone 80 mg 08/10/18 15:28 08/12/18 21:14 Mylicon Liquid - PO 80 mg QID PRN Administration GAS Sucralfate 1 gm 08/10/18 14:00 08/13/18 14:16 Carafate Oral Suspension - PO 1 gm QID MARY JANE Administration Zolpidem Tartrate 5 mg 08/09/18 22:00 08/12/18 21:15 Ambien - PO 5 mg HS PRN Administration INSOMNIA ASSESSMENT/PLAN: The patient is a 77 year old Turkmen female, with a past medical history of diverticulitis, complicated with abscess, (s/p Bess procedure), CABG, HLD, hypothyroidism, HTN, GERD, and anxiety, admitted for abdominal pain with nausea and decreased passing of gas. Iron def anemia/Anemia of chronic disease abdominal pain s/p Bess, colectomy GERD HTN Hypothyroidism Plan: The patient is likely iron deficient based on iron studies. There is also a component of chronic anemia in light of chronic kidney disease/MARKIE. The patient has reversed protein ratio, we will obtain protein/immunoglobulin studies to r/o MM, still pending. Dispo: We will continue to follow the patient. Thank you for this consultative opportunity. Problem List - Problems (1) MARKIE (acute kidney injury) Code(s): N17.9 - ACUTE KIDNEY FAILURE, UNSPECIFIED (2) Abdominal pain Code(s): R10.9 - UNSPECIFIED ABDOMINAL PAIN Qualifiers: Abdominal location: upper abdomen, unspecified Qualified Code(s): R10.10 - Upper abdominal pain, unspecified (3) Colostomy in place Code(s): Z93.3 - COLOSTOMY STATUS (4) Diverticulosis Code(s): K57.90 - DVRTCLOS OF INTEST, PART UNSP, W/O PERF OR ABSCESS W/O BLEED (5) Status post Anthony's procedure Code(s): Z93.3 - COLOSTOMY STATUS (6) Anemia Code(s): D64.9 - ANEMIA, UNSPECIFIED (7) Depression with anxiety Code(s): F41.8 - OTHER SPECIFIED ANXIETY DISORDERS (8) HLD (hyperlipidemia) Code(s): E78.5 - HYPERLIPIDEMIA, UNSPECIFIED (9) HTN (hypertension) Code(s): I10 - ESSENTIAL (PRIMARY) HYPERTENSION Qualifiers: Hypertension type: essential hypertension Qualified Code(s): I10 - Essential (primary) hypertension (10) Hypothyroidism Code(s): E03.9 - HYPOTHYROIDISM, UNSPECIFIED Qualifiers: Hypothyroidism type: acquired Qualified Code(s): E03.9 - Hypothyroidism, unspecified Visit type - Emergency Visit Emergency Visit: Yes ED Registration Date: 08/09/18 Care time: The patient presented to the Emergency Department on the above date and was hospitalized for further evaluation of their emergent condition. - New Patient This patient is new to me today: No - Critical Care Critical Care patient: No - Discharge Referral Referred to [facility] Med P.C.: No
--- NOTE | 2018-08-13 15:11 | PN ---
Teaching Attending Note Name of Resident: Georgie Paz ATTENDING PHYSICIAN STATEMENT I saw and evaluated the patient. I reviewed the resident's note and discussed the case with the resident. I agree with the resident's findings and plan as documented. SUBJECTIVE: Patient seen and examined Complaining of "GAS" Tolerating diet Last Vital Signs Temp Pulse Resp BP Pulse Ox 99.1 F 76 20 116/67 100 08/13/18 14:31 08/13/18 14:31 08/13/18 14:31 08/13/18 14:31 08/12/18 21:00 HEENT: NATA, EOM Intact Oropharynx: No thrush, No mucositis,edentulous Cor: RSR, No murmurs, No gallops Lungs: Clear to P&A Abd: Soft, Normal bowel sounds, No organomegaly, functioning colostomy Ext:No significant edema Skin: No rashes, Integument intact CBC, BMP 08/13/18 06:26 08/13/18 06:26 Current Medications Generic Name Dose Route Start Last Admin Trade Name Freq PRN Reason Stop Dose Admin Acetaminophen 650 mg 08/10/18 10:39 08/12/18 13:19 Tylenol - PO 650 mg Q4H PRN Administration SEVERE PAIN SCALE 6-10 Albuterol Sulfate 1 amp 08/09/18 16:06 Ventolin 0.083% Nebulizer Soln - NEB Q6H PRN SHORT OF BREATH/WHEEZING Albuterol Sulfate 1 amp 08/10/18 14:30 Ventolin 0.083% Nebulizer Soln - NEB Q1H PRN SHORT OF BREATH/WHEEZING Artificial Tears 1 drop 08/09/18 22:00 08/13/18 10:47 Artificial Tears OD 1 drop BID MARY JANE Administration Atorvastatin Calcium 20 mg 08/09/18 22:00 08/12/18 21:15 Lipitor - PO 20 mg HS MARY JANE Administration Calcium/Vitamin D 1 tab 08/10/18 10:00 08/13/18 10:41 Oscal 250 Mg+D - PO 1 tab DAILY MARY JANE Administration Diazepam 5 mg 08/10/18 22:00 08/13/18 10:41 Valium - PO 5 mg BID MARY JANE Administration Fenofibric Acid 135 mg 08/10/18 10:00 08/13/18 10:42 Trilipix - PO 135 mg DAILY MARY JANE Administration Heparin Sodium (Porcine) 5,000 unit 08/09/18 22:00 08/13/18 10:47 Heparin - SQ Not Given BID [facility] Sodium Chloride 1,000 mls @ 125 mls/hr 08/12/18 13:47 08/13/18 10:30 1/2 Normal Saline IV 125 mls/hr ASDIR MARY JANE Administration Levothyroxine Sodium 50 mcg 08/10/18 07:00 08/13/18 06:14 Synthroid - PO 50 mcg AM MARY JANE Administration Magnesium Oxide 400 mg 08/10/18 10:00 08/13/18 10:42 Mag-Ox - PO 400 mg DAILY MARY JANE Administration Metoprolol Succinate 25 mg 08/10/18 10:00 08/13/18 10:41 Toprol Xl - PO 25 mg DAILY MARY JANE Administration Ondansetron HCl 8 mg 08/12/18 08:08 08/13/18 07:52 Zofran - PO 8 mg Q8H PRN Administration NAUSEA Pantoprazole Sodium 40 mg 08/10/18 10:00 08/13/18 10:41 Protonix - PO 40 mg BID MARY JANE Administration Sertraline HCl 50 mg 08/10/18 10:00 08/13/18 10:41 Zoloft - PO 50 mg DAILY MARY JANE Administration Simethicone 80 mg 08/10/18 15:28 08/12/18 21:14 Mylicon Liquid - PO 80 mg QID PRN Administration GAS Sucralfate 1 gm 08/10/18 14:00 08/13/18 14:16 Carafate Oral Suspension - PO 1 gm QID MARY JANE Administration Zolpidem Tartrate 5 mg 08/09/18 22:00 08/12/18 21:15 Ambien - PO 5 mg HS PRN Administration INSOMNIA Impression: Anemia Component of blood loss with Fe++ sat of 8% ; Component of MARKIE/CKD Await protein studies MARKIE/CKD HPL OBJECTIVE: ASSESSMENT AND PLAN:
--- NOTE | 2018-08-13 16:16 | PN ---
Progress Note, Physician History of Present Illness: Pt seen and examined at bedside. She is awake and alert. She is tolerating diet. She is ambulating. - Current Medication List Current Medications: Active Medications Acetaminophen (Tylenol -) 650 mg PO Q4H PRN PRN Reason: SEVERE PAIN SCALE 6-10 Last Admin: 08/12/18 13:19 Dose: 650 mg Albuterol Sulfate (Ventolin 0.083% Nebulizer Soln -) 1 amp NEB Q6H PRN PRN Reason: SHORT OF BREATH/WHEEZING Albuterol Sulfate (Ventolin 0.083% Nebulizer Soln -) 1 amp NEB Q1H PRN PRN Reason: SHORT OF BREATH/WHEEZING Artificial Tears (Artificial Tears) 1 drop OD BID [facility] Last Admin: 08/13/18 10:47 Dose: 1 drop Atorvastatin Calcium (Lipitor -) 20 mg PO HS [facility] Last Admin: 08/12/18 21:15 Dose: 20 mg Calcium/Vitamin D (Oscal 250 Mg+D -) 1 tab PO DAILY [facility] Last Admin: 08/13/18 10:41 Dose: 1 tab Diazepam (Valium -) 5 mg PO BID [facility] Last Admin: 08/13/18 10:41 Dose: 5 mg Fenofibric Acid (Trilipix -) 135 mg PO DAILY [facility] Last Admin: 08/13/18 10:42 Dose: 135 mg Heparin Sodium (Porcine) (Heparin -) 5,000 unit SQ BID [facility] Last Admin: 08/13/18 10:47 Dose: Not Given Sodium Chloride (1/2 Normal Saline) 1,000 mls @ 125 mls/hr IV ASDIR [facility] Last Admin: 08/13/18 10:30 Dose: 125 mls/hr Levothyroxine Sodium (Synthroid -) 50 mcg PO AM [facility] Last Admin: 08/13/18 06:14 Dose: 50 mcg Magnesium Oxide (Mag-Ox -) 400 mg PO DAILY [facility] Last Admin: 08/13/18 10:42 Dose: 400 mg Metoprolol Succinate (Toprol Xl -) 25 mg PO DAILY [facility] Last Admin: 08/13/18 10:41 Dose: 25 mg Ondansetron HCl (Zofran -) 8 mg PO Q8H PRN PRN Reason: NAUSEA Last Admin: 08/13/18 07:52 Dose: 8 mg Pantoprazole Sodium (Protonix -) 40 mg PO BID [facility] Last Admin: 08/13/18 10:41 Dose: 40 mg Sertraline HCl (Zoloft -) 50 mg PO DAILY [facility] Last Admin: 08/13/18 10:41 Dose: 50 mg Simethicone (Mylicon Liquid -) 80 mg PO QID PRN PRN Reason: GAS Last Admin: 08/12/18 21:14 Dose: 80 mg Sucralfate (Carafate Oral Suspension -) 1 gm PO QID MARY JANE Last Admin: 08/13/18 14:16 Dose: 1 gm Zolpidem Tartrate (Ambien -) 5 mg PO HS PRN PRN Reason: INSOMNIA Last Admin: 08/12/18 21:15 Dose: 5 mg - Objective Vital Signs: Vital Signs Temperature 99.1 F 08/13/18 14:31 Pulse Rate 76 08/13/18 14:31 Respiratory Rate 20 08/13/18 14:31 Blood Pressure 116/67 08/13/18 14:31 O2 Sat by Pulse Oximetry (%) 100 08/12/18 21:00 Constitutional: Yes: Calm Eyes: Yes: Conjunctiva Clear HENT: Yes: Atraumatic Neck: Yes: Supple Cardiovascular: Yes: S1, S2 Respiratory: Yes: CTA Bilaterally Gastrointestinal: Yes: Soft, Other (colostomy) Genitourinary: Yes: WNL Musculoskeletal: Yes: WNL Edema: No Neurological: Yes: Oriented Psychiatric: Yes: Oriented Labs: CBC, BMP 08/13/18 06:26 08/13/18 06:26 INR, PTT INR 1.13 (0.83-1.09) H 08/09/18 11:00 Problem List - Problems (1) MARKIE (acute kidney injury) Code(s): N17.9 - ACUTE KIDNEY FAILURE, UNSPECIFIED (2) Abdominal pain Code(s): R10.9 - UNSPECIFIED ABDOMINAL PAIN Qualifiers: Abdominal location: upper abdomen, unspecified Qualified Code(s): R10.10 - Upper abdominal pain, unspecified (3) Hyperkalemia Code(s): E87.5 - HYPERKALEMIA Assessment/Plan Current Medications Generic Name Dose Route Start Last Admin Trade Name Freq PRN Reason Stop Dose Admin Acetaminophen 650 mg 08/10/18 10:39 08/12/18 13:19 Tylenol - PO 650 mg Q4H PRN Administration SEVERE PAIN SCALE 6-10 Albuterol Sulfate 1 amp 08/09/18 16:06 Ventolin 0.083% Nebulizer Soln - NEB Q6H PRN SHORT OF BREATH/WHEEZING Albuterol Sulfate 1 amp 08/10/18 14:30 Ventolin 0.083% Nebulizer Soln - NEB Q1H PRN SHORT OF BREATH/WHEEZING Artificial Tears 1 drop 08/09/18 22:00 08/13/18 10:47 Artificial Tears OD 1 drop BID MARY JANE Administration Atorvastatin Calcium 20 mg 08/09/18 22:00 08/12/18 21:15 Lipitor - PO 20 mg HS MARY JANE Administration Calcium/Vitamin D 1 tab 08/10/18 10:00 08/13/18 10:41 Oscal 250 Mg+D - PO 1 tab DAILY MARY JANE Administration Diazepam 5 mg 08/10/18 22:00 08/13/18 10:41 Valium - PO 5 mg BID MARY JANE Administration Fenofibric Acid 135 mg 08/10/18 10:00 08/13/18 10:42 Trilipix - PO 135 mg DAILY MARY JANE Administration Heparin Sodium (Porcine) 5,000 unit 08/09/18 22:00 08/13/18 10:47 Heparin - SQ Not Given BID MARY JANE Sodium Chloride 1,000 mls @ 125 mls/hr 08/12/18 13:47 08/13/18 10:30 1/2 Normal Saline IV 125 mls/hr ASDIR MARY JANE Administration Levothyroxine Sodium 50 mcg 08/10/18 07:00 08/13/18 06:14 Synthroid - PO 50 mcg AM MARY JANE Administration Magnesium Oxide 400 mg 08/10/18 10:00 08/13/18 10:42 Mag-Ox - PO 400 mg DAILY MARY JANE Administration Metoprolol Succinate 25 mg 08/10/18 10:00 08/13/18 10:41 Toprol Xl - PO 25 mg DAILY MARY JANE Administration Ondansetron HCl 8 mg 08/12/18 08:08 08/13/18 07:52 Zofran - PO 8 mg Q8H PRN Administration NAUSEA Pantoprazole Sodium 40 mg 08/10/18 10:00 08/13/18 10:41 Protonix - PO 40 mg BID MARY JANE Administration Sertraline HCl 50 mg 08/10/18 10:00 08/13/18 10:41 Zoloft - PO 50 mg DAILY MARY JANE Administration Simethicone 80 mg 08/10/18 15:28 08/12/18 21:14 Mylicon Liquid - PO 80 mg QID PRN Administration GAS Sucralfate 1 gm 08/10/18 14:00 08/13/18 14:16 Carafate Oral Suspension - PO 1 gm QID MARY JANE Administration Zolpidem Tartrate 5 mg 08/09/18 22:00 08/12/18 21:15 Ambien - PO 5 mg HS PRN Administration INSOMNIA Impression 1. MARKIE 2. hyperkalemia 3. abdominal pain 4. hx of perforated diverticula 5. acidosis 6. hld 7. CAD 8. HTN 9. anxiety 10. 1.3 cm left adrenal nodule Plan - pt was refusing fluids, now agrees - repeat labs in am - potassium improved - pt tolerating diet - repeat labs in am
[2018-08-13] MEDS: ACETAMINOPHEN 325 MG TABLET (FP) PO PRN (17:22)
[2018-08-13 18:14] LABS: FREE KAPPA,SERUM 122.8 mg/L (3.3-19.4)
[2018-08-13] MEDS: ATORVASTATIN CA 20 MG TABLET (FP) PO SCH (22:48)
[2018-08-13] MEDS: ZOLPIDEM TARTRATE 5 MG TABLET PO PRN (22:50)
[2018-08-14] MEDS: LEVOTHYROXINE NA 50 MCG TABLET (FP) PO SCH (07:17)
[2018-08-14 08:18] LABS: ALBUMIN 2.2 g/dl (3.4-5.0); BILIRUBIN,TOTAL 0.3 mg/dL (0.2-1); BLOOD UREA NITROGEN 13.6 mg/dL (7-18); CALCIUM 8.4 mg/dL (8.5-10.1); CREATININE 0.9 mg/dL (0.55-1.3); POTASSIUM 3.6 mmol/L (3.5-5.1); TOT PROT 6.4 g/dl (6.4-8.2)
[2018-08-14] MEDS: ONDANSETRON 4 MG TABLET PO PRN (08:43)
[2018-08-14] MEDS: diazePAM 5 MG TABLET PO SCH ×2 (11:04→21:50)
[2018-08-14] MEDS: metoPROLOL SUCCINATE 25 MG TAB.SR.24H (FP) PO SCH (11:04)
[2018-08-14] MEDS: PANTOPRAZOLE 40 MG TABLET (FP) PO SCH ×2 (11:04→21:50)
[2018-08-14] MEDS: SUCRALFATE 1 GM/10 ML UNIT DOSE CUPS PO SCH ×4 (11:04→21:49)
[2018-08-14] MEDS: SERTRALINE HCL 50 MG TABLET (FP) PO SCH (11:04)
[2018-08-14] MEDS: FENOFIBRIC ACID 135 MG CAP PO SCH (11:04)
[2018-08-14] MEDS: HEPARIN NA (PORCINE) 5,000 UNITS/ML 1ML VIAL SQ SCH ×2 (11:04→21:49)
[2018-08-14] MEDS: MAGNESIUM OXIDE 400 MG TABLET (FP) PO SCH ×2 (11:04→11:14)
[2018-08-14] MEDS: CALCIUM 250MG/VIT-D 125 UNITS 1 COMBO TABLET PO SCH (11:05)
[2018-08-14] MEDS: ARTIFICIAL TEARS (POLYVINYL ALCOHOL) OPTH DROPS OD SCH ×3 (11:07→21:49)
[2018-08-14] MEDS: SODIUM CHLORIDE 0.45% 1,000 ML IV SCH ×2 (11:28→16:30)
--- NOTE | 2018-08-14 17:03 | PN ---
Progress Note (short form) - Note Progress Note: leonor on fluid replacement Current Medications Acetaminophen (Tylenol -) 650 mg PO Q4H PRN PRN Reason: SEVERE PAIN SCALE 6-10 Last Admin: 08/13/18 17:22 Dose: 650 mg Albuterol Sulfate (Ventolin 0.083% Nebulizer Soln -) 1 amp NEB Q1H PRN PRN Reason: SHORT OF BREATH/WHEEZING Artificial Tears (Artificial Tears) 1 drop OD BID [facility] Last Admin: 08/14/18 11:14 Dose: Not Given Atorvastatin Calcium (Lipitor -) 20 mg PO HS [facility] Last Admin: 08/13/18 22:48 Dose: 20 mg Calcium/Vitamin D (Oscal 250 Mg+D -) 1 tab PO DAILY [facility] Last Admin: 08/14/18 11:05 Dose: 1 tab Diazepam (Valium -) 5 mg PO BID [facility] Last Admin: 08/14/18 11:04 Dose: 5 mg Fenofibric Acid (Trilipix -) 135 mg PO DAILY [facility] Last Admin: 08/14/18 11:04 Dose: 135 mg Heparin Sodium (Porcine) (Heparin -) 5,000 unit SQ BID [facility] Last Admin: 08/14/18 11:04 Dose: Not Given Sodium Chloride (1/2 Normal Saline) 1,000 mls @ 83 mls/hr IV ASDIR [facility] Last Admin: 08/14/18 11:28 Dose: 83 mls/hr Levothyroxine Sodium (Synthroid -) 50 mcg PO AM [facility] Last Admin: 08/14/18 07:17 Dose: 50 mcg Magnesium Oxide (Mag-Ox -) 400 mg PO DAILY [facility] Last Admin: 08/14/18 11:14 Dose: Not Given Metoprolol Succinate (Toprol Xl -) 25 mg PO DAILY [facility] Last Admin: 08/14/18 11:04 Dose: 25 mg Ondansetron HCl (Zofran -) 8 mg PO Q8H PRN PRN Reason: NAUSEA Last Admin: 08/14/18 08:43 Dose: 8 mg Pantoprazole Sodium (Protonix -) 40 mg PO BID [facility] Last Admin: 08/14/18 11:04 Dose: 40 mg Sertraline HCl (Zoloft -) 50 mg PO DAILY [facility] Last Admin: 08/14/18 11:04 Dose: 50 mg Simethicone (Mylicon Liquid -) 80 mg PO QID PRN PRN Reason: GAS Last Admin: 08/12/18 21:14 Dose: 80 mg Sucralfate (Carafate Oral Suspension -) 1 gm PO QID MARY JANE Last Admin: 08/14/18 14:49 Dose: 1 gm Last Vital Signs Temp Pulse Resp BP Pulse Ox 98.7 F 82 20 113/62 97 08/14/18 14:55 08/14/18 14:55 08/14/18 14:55 08/14/18 14:55 08/13/18 21:00 lungs clear heart reg abd soft ext no 08/13/18 06:26 Sodium 143 Potassium 4.9 Chloride 113 H Carbon Dioxide 21 Anion Gap 9 BUN 24.5 H Creatinine 2.5 H CBC, BMP 08/14/18 06:00 08/14/18 06:00 IMP- ckd renal function normal today ? wrong patient Plan- repeat labs in am
[2018-08-14] MEDS: ATORVASTATIN CA 20 MG TABLET (FP) PO SCH (21:50)
[2018-08-14] MEDS ORDERED: ZOLPIDEM TARTRATE 5 MG TABLET PO ONE (22:15)
[2018-08-14] MEDS: ACETAMINOPHEN 325 MG TABLET (FP) PO PRN (22:21)
--- NOTE | 2018-08-14 23:53 | PN ---
Progress Note, Physician History of Present Illness: No further abdominal pain - Current Medication List Current Medications: Active Medications Acetaminophen (Tylenol -) 650 mg PO Q4H PRN PRN Reason: SEVERE PAIN SCALE 6-10 Last Admin: 08/14/18 22:21 Dose: 650 mg Albuterol Sulfate (Ventolin 0.083% Nebulizer Soln -) 1 amp NEB Q1H PRN PRN Reason: SHORT OF BREATH/WHEEZING Artificial Tears (Artificial Tears) 1 drop OD BID [facility] Last Admin: 08/14/18 21:49 Dose: Not Given Atorvastatin Calcium (Lipitor -) 20 mg PO HS [facility] Last Admin: 08/14/18 21:50 Dose: 20 mg Calcium/Vitamin D (Oscal 250 Mg+D -) 1 tab PO DAILY [facility] Last Admin: 08/14/18 11:05 Dose: 1 tab Diazepam (Valium -) 5 mg PO BID [facility] Last Admin: 08/14/18 21:50 Dose: 5 mg Fenofibric Acid (Trilipix -) 135 mg PO DAILY [facility] Last Admin: 08/14/18 11:04 Dose: 135 mg Heparin Sodium (Porcine) (Heparin -) 5,000 unit SQ BID [facility] Last Admin: 08/14/18 21:49 Dose: Not Given Sodium Chloride (1/2 Normal Saline) 1,000 mls @ 83 mls/hr IV ASDIR [facility] Last Admin: 08/14/18 16:30 Dose: Not Given Levothyroxine Sodium (Synthroid -) 50 mcg PO AM [facility] Last Admin: 08/14/18 07:17 Dose: 50 mcg Magnesium Oxide (Mag-Ox -) 400 mg PO DAILY [facility] Last Admin: 08/14/18 11:14 Dose: Not Given Metoprolol Succinate (Toprol Xl -) 25 mg PO DAILY [facility] Last Admin: 08/14/18 11:04 Dose: 25 mg Ondansetron HCl (Zofran -) 8 mg PO Q8H PRN PRN Reason: NAUSEA Last Admin: 08/14/18 08:43 Dose: 8 mg Pantoprazole Sodium (Protonix -) 40 mg PO BID [facility] Last Admin: 08/14/18 21:50 Dose: 40 mg Sertraline HCl (Zoloft -) 50 mg PO DAILY [facility] Last Admin: 08/14/18 11:04 Dose: 50 mg Simethicone (Mylicon Liquid -) 80 mg PO QID PRN PRN Reason: GAS Last Admin: 08/12/18 21:14 Dose: 80 mg Sucralfate (Carafate Oral Suspension -) 1 gm PO QID [facility] Last Admin: 08/14/18 21:49 Dose: 1 gm - Objective Vital Signs: Vital Signs Temperature 98.3 F 08/14/18 22:00 Pulse Rate 73 08/14/18 22:00 Respiratory Rate 20 08/14/18 22:00 Blood Pressure 113/58 L 08/14/18 22:00 O2 Sat by Pulse Oximetry (%) 98 08/14/18 10:30 Neck: Yes: WNL, Supple Cardiovascular: Yes: WNL, Regular Rate and Rhythm Respiratory: Yes: WNL, Regular, CTA Bilaterally Gastrointestinal: Yes: WNL, Normal Bowel Sounds, Soft, Other ((+) colostomy RLQ) Labs: CBC, BMP 08/14/18 06:00 08/14/18 06:00 INR, PTT INR 1.13 (0.83-1.09) H 08/09/18 11:00 Problem List - Problems (1) MARKIE (acute kidney injury) Assessment/Plan: Cont IVF Monitor labs Code(s): N17.9 - ACUTE KIDNEY FAILURE, UNSPECIFIED (2) Abdominal pain Assessment/Plan: No further complaints Cont to [facility] Pt still refusing ct scan Code(s): R10.9 - UNSPECIFIED ABDOMINAL PAIN Qualifiers: Abdominal location: upper abdomen, unspecified Qualified Code(s): R10.10 - Upper abdominal pain, unspecified (3) Colostomy in place Assessment/Plan: Cont colostomy care Code(s): Z93.3 - COLOSTOMY STATUS (4) Anemia Assessment/Plan: Monitor H/H Code(s): D64.9 - ANEMIA, UNSPECIFIED (5) HLD (hyperlipidemia) Assessment/Plan: Cont fenofibrate Code(s): E78.5 - HYPERLIPIDEMIA, UNSPECIFIED (6) HTN (hypertension) Assessment/Plan: Cont metoprolol BP stable Code(s): I10 - ESSENTIAL (PRIMARY) HYPERTENSION Qualifiers: Hypertension type: essential hypertension Qualified Code(s): I10 - Essential (primary) hypertension (7) Hypothyroidism Assessment/Plan: Cont levothyroxine Code(s): E03.9 - HYPOTHYROIDISM, UNSPECIFIED Qualifiers: Hypothyroidism type: acquired Qualified Code(s): E03.9 - Hypothyroidism, unspecified (8) Depression with anxiety Assessment/Plan: Cont valium/lexapro Code(s): F41.8 - OTHER SPECIFIED ANXIETY DISORDERS (9) Status post Anthony's procedure Code(s): Z93.3 - COLOSTOMY STATUS
[2018-08-15] MEDS: SODIUM CHLORIDE 0.45% 1,000 ML IV SCH ×3 (00:49→17:52)
[2018-08-15] MEDS: LEVOTHYROXINE NA 50 MCG TABLET (FP) PO SCH (06:25)
[2018-08-15] MEDS: ONDANSETRON 4 MG TABLET PO PRN (07:20)
[2018-08-15 08:14] LABS: BASO % 0.5 % (0-2.0); EOS % 2.6 % (0-4.5); HEMATOCRIT 25.4 % (32.4-45.2); HEMOGLOBIN 8.2 GM/dL (10.7-15.3); LYMPH % 25.3 % (8-40); MCH 29.6 pg (25.7-33.7); MCHC 32.5 g/dl (32.0-36.0); MEAN CELL VOLUME 91.2 fl (80-96); MEAN PLT VOLUME 8.1 fl (7.5-11.1); MONO % 10.2 % (3.8-10.2); NEUT % 61.4 % (42.8-82.8); PLATELET COUNT 308 K/MM3 (134-434); RBC 2.78 M/mm3 (3.60-5.2); WHITE BLOOD COUNT 8.5 K/mm3 (4.0-10.0)
[2018-08-15 08:46] LABS: ALBUMIN 2.9 g/dl (3.4-5.0); BILIRUBIN,TOTAL 0.2 mg/dL (0.2-1); CALCIUM 8.5 mg/dL (8.5-10.1); CREATININE 2.1 mg/dL (0.55-1.3); POTASSIUM 4.9 mmol/L (3.5-5.1); TOT PROT 6.5 g/dl (6.4-8.2)
[2018-08-15] MEDS ORDERED: PT OWN MED DRAWER 7, Y5N ONE (09:16)
[2018-08-15] MEDS: CALCIUM 250MG/VIT-D 125 UNITS 1 COMBO TABLET PO SCH (09:25)
[2018-08-15] MEDS: metoPROLOL SUCCINATE 25 MG TAB.SR.24H (FP) PO SCH ×2 (09:25→09:36)
[2018-08-15] MEDS: SUCRALFATE 1 GM/10 ML UNIT DOSE CUPS PO SCH ×4 (09:25→22:28)
[2018-08-15] MEDS: FENOFIBRIC ACID 135 MG CAP PO SCH (09:25)
[2018-08-15] MEDS: PANTOPRAZOLE 40 MG TABLET (FP) PO SCH ×2 (09:25→22:28)
[2018-08-15] MEDS: diazePAM 5 MG TABLET PO SCH ×2 (09:26→22:28)
[2018-08-15] MEDS: SERTRALINE HCL 50 MG TABLET (FP) PO SCH (09:26)
[2018-08-15] MEDS: ARTIFICIAL TEARS (POLYVINYL ALCOHOL) OPTH DROPS OD SCH ×2 (09:30→22:31)
[2018-08-15] MEDS: HEPARIN NA (PORCINE) 5,000 UNITS/ML 1ML VIAL SQ SCH ×2 (09:31→22:31)
[2018-08-15] MEDS: MAGNESIUM OXIDE 400 MG TABLET (FP) PO SCH (09:31)
[2018-08-15] MEDS: ACETAMINOPHEN 325 MG TABLET (FP) PO PRN ×2 (13:10→23:05)
[2018-08-15] MEDS: ATORVASTATIN CA 20 MG TABLET (FP) PO SCH (22:28)
[2018-08-15] MEDS: ZOLPIDEM TARTRATE 5 MG TABLET PO PRN (22:28)
--- NOTE | 2018-08-15 23:12 | PN ---
Progress Note (short form) - Note Progress Note: leonor on fluid replacement Current Medications Acetaminophen (Tylenol -) 650 mg PO Q4H PRN PRN Reason: SEVERE PAIN SCALE 6-10 Last Admin: 08/15/18 23:05 Dose: 650 mg Artificial Tears (Artificial Tears) 1 drop OD BID [facility] Last Admin: 08/15/18 22:31 Dose: Not Given Atorvastatin Calcium (Lipitor -) 20 mg PO HS [facility] Last Admin: 08/15/18 22:28 Dose: 20 mg Calcium/Vitamin D (Oscal 250 Mg+D -) 1 tab PO DAILY [facility] Last Admin: 08/15/18 09:25 Dose: 1 tab Diazepam (Valium -) 5 mg PO BID [facility] Last Admin: 08/15/18 22:28 Dose: 5 mg Fenofibric Acid (Trilipix -) 135 mg PO DAILY [facility] Last Admin: 08/15/18 09:25 Dose: 135 mg Heparin Sodium (Porcine) (Heparin -) 5,000 unit SQ BID [facility] Last Admin: 08/15/18 22:31 Dose: Not Given Sodium Chloride (1/2 Normal Saline) 1,000 mls @ 83 mls/hr IV ASDIR [facility] Last Admin: 08/15/18 17:52 Dose: Not Given Levothyroxine Sodium (Synthroid -) 50 mcg PO AM [facility] Last Admin: 08/15/18 06:25 Dose: 50 mcg Magnesium Oxide (Mag-Ox -) 400 mg PO DAILY [facility] Last Admin: 08/15/18 09:31 Dose: Not Given Metoprolol Succinate (Toprol Xl -) 25 mg PO DAILY [facility] Last Admin: 08/15/18 09:36 Dose: Not Given Ondansetron HCl (Zofran -) 8 mg PO Q8H PRN PRN Reason: NAUSEA Last Admin: 08/15/18 07:20 Dose: 8 mg Pantoprazole Sodium (Protonix -) 40 mg PO BID [facility] Last Admin: 08/15/18 22:28 Dose: 40 mg Sertraline HCl (Zoloft -) 50 mg PO DAILY [facility] Last Admin: 08/15/18 09:26 Dose: 50 mg Simethicone (Mylicon Liquid -) 80 mg PO QID PRN PRN Reason: GAS Last Admin: 08/12/18 21:14 Dose: 80 mg Sucralfate (Carafate Oral Suspension -) 1 gm PO QID [facility] Last Admin: 08/15/18 22:28 Dose: 1 gm Zolpidem Tartrate (Ambien -) 5 mg PO HS PRN PRN Reason: INSOMNIA Last Admin: 08/15/18 22:28 Dose: 5 mg Last Vital Signs Temp Pulse Resp BP Pulse Ox 98.7 F 82 18 111/56 L 98 08/15/18 23:00 08/15/18 23:00 08/15/18 23:00 08/15/18 23:00 08/15/18 09:00 lungs clear heart reg abd soft ext no edema CBC, BMP 08/15/18 07:33 08/15/18 07:33 CBC, BMP 08/14/18 06:00 08/14/18 06:00 IMP- CKD todays labs more in line with previous labs including metabolic acidosis Plan- continue present tx
[2018-08-16] MEDS: SODIUM CHLORIDE 0.45% 1,000 ML IV SCH ×2 (00:54→12:17)
[2018-08-16 07:11] LABS: BASO % 0.6 % (0-2.0)
[2018-08-16] MEDS: LEVOTHYROXINE NA 50 MCG TABLET (FP) PO SCH (07:11)
[2018-08-16 07:37] LABS: ALBUMIN 2.8 g/dl (3.4-5.0); BILIRUBIN,TOTAL 0.4 mg/dL (0.2-1); BLOOD UREA NITROGEN 25.2 mg/dL (7-18); CALCIUM 8.1 mg/dL (8.5-10.1); CREATININE 2.2 mg/dL (0.55-1.3); POTASSIUM 4.7 mmol/L (3.5-5.1); TOT PROT 6.4 g/dl (6.4-8.2)
[2018-08-16 08:18] LABS: EOS % 2.6 % (0-4.5); LYMPH % 30.3 % (8-40); MCH 29.5 pg (25.7-33.7); MEAN CELL VOLUME 92.2 fl (80-96); MEAN PLT VOLUME 8.6 fl (7.5-11.1); MONO % 9.9 % (3.8-10.2); NEUT % 56.6 % (42.8-82.8); RBC 2.71 M/mm3 (3.60-5.2); RDW 13.4 % (11.6-15.6); WHITE BLOOD COUNT 8.3 K/mm3 (4.0-10.0)
[2018-08-16 08:43] LABS: PLATELET COUNT 333 K/MM3 (134-434)
[2018-08-16] MEDS ORDERED: PT OWN MED DRAWER 7, Y5N ONE (09:51)
[2018-08-16] MEDS: HEPARIN NA (PORCINE) 5,000 UNITS/ML 1ML VIAL SQ SCH (10:07)
[2018-08-16] MEDS: SUCRALFATE 1 GM/10 ML UNIT DOSE CUPS PO SCH ×4 (10:07→21:28)
[2018-08-16] MEDS: ARTIFICIAL TEARS (POLYVINYL ALCOHOL) OPTH DROPS OD SCH ×2 (10:07→23:58)
[2018-08-16] MEDS: metoPROLOL SUCCINATE 25 MG TAB.SR.24H (FP) PO SCH (10:08)
[2018-08-16] MEDS: FENOFIBRIC ACID 135 MG CAP PO SCH (10:08)
[2018-08-16] MEDS: SERTRALINE HCL 50 MG TABLET (FP) PO SCH (10:08)
[2018-08-16] MEDS: PANTOPRAZOLE 40 MG TABLET (FP) PO SCH ×2 (10:08→21:28)
[2018-08-16] MEDS: MAGNESIUM OXIDE 400 MG TABLET (FP) PO SCH (10:08)
[2018-08-16] MEDS: CALCIUM 250MG/VIT-D 125 UNITS 1 COMBO TABLET PO SCH (10:08)
[2018-08-16] MEDS: diazePAM 5 MG TABLET PO SCH ×2 (10:08→21:28)
[2018-08-16] MEDS: ONDANSETRON 4 MG TABLET PO PRN ×2 (10:13→17:34)
--- NOTE | 2018-08-16 10:38 | PN ---
Progress Note, Physician History of Present Illness: Pt seen and examined at bedside. She is tolerating diet. - Current Medication List Current Medications: Active Medications Acetaminophen (Tylenol -) 650 mg PO Q4H PRN PRN Reason: SEVERE PAIN SCALE 6-10 Last Admin: 08/15/18 23:05 Dose: 650 mg Artificial Tears (Artificial Tears) 1 drop OD BID [facility] Last Admin: 08/16/18 10:07 Dose: 1 drop Atorvastatin Calcium (Lipitor -) 20 mg PO HS [facility] Last Admin: 08/15/18 22:28 Dose: 20 mg Calcium/Vitamin D (Oscal 250 Mg+D -) 1 tab PO DAILY [facility] Last Admin: 08/16/18 10:08 Dose: 1 tab Diazepam (Valium -) 5 mg PO BID [facility] Last Admin: 08/16/18 10:08 Dose: 5 mg Fenofibric Acid (Trilipix -) 135 mg PO DAILY [facility] Last Admin: 08/16/18 10:08 Dose: 135 mg Heparin Sodium (Porcine) (Heparin -) 5,000 unit SQ BID [facility] Last Admin: 08/16/18 10:07 Dose: 5,000 unit Sodium Chloride (1/2 Normal Saline) 1,000 mls @ 83 mls/hr IV ASDIR [facility] Last Admin: 08/16/18 00:54 Dose: 83 mls/hr Levothyroxine Sodium (Synthroid -) 50 mcg PO AM [facility] Last Admin: 08/16/18 07:11 Dose: 50 mcg Magnesium Oxide (Mag-Ox -) 400 mg PO DAILY [facility] Last Admin: 08/16/18 10:08 Dose: 400 mg Metoprolol Succinate (Toprol Xl -) 25 mg PO DAILY [facility] Last Admin: 08/16/18 10:08 Dose: 25 mg Ondansetron HCl (Zofran -) 8 mg PO Q8H PRN PRN Reason: NAUSEA Last Admin: 08/16/18 10:13 Dose: 8 mg Pantoprazole Sodium (Protonix -) 40 mg PO BID [facility] Last Admin: 08/16/18 10:08 Dose: 40 mg Sertraline HCl (Zoloft -) 50 mg PO DAILY [facility] Last Admin: 08/16/18 10:08 Dose: 50 mg Simethicone (Mylicon Liquid -) 80 mg PO QID PRN PRN Reason: GAS Last Admin: 08/12/18 21:14 Dose: 80 mg Sucralfate (Carafate Oral Suspension -) 1 gm PO QID [facility] Last Admin: 08/16/18 10:07 Dose: 1 gm Zolpidem Tartrate (Ambien -) 5 mg PO HS PRN PRN Reason: INSOMNIA Last Admin: 08/15/18 22:28 Dose: 5 mg - Objective Vital Signs: Vital Signs Temperature 98.8 F 08/16/18 06:00 Pulse Rate 83 08/16/18 06:00 Respiratory Rate 18 08/16/18 06:00 Blood Pressure 106/45 L 08/16/18 06:00 O2 Sat by Pulse Oximetry (%) 98 08/15/18 21:00 Constitutional: Yes: Calm Eyes: Yes: Conjunctiva Clear HENT: Yes: Atraumatic Neck: Yes: Supple Cardiovascular: Yes: S1, S2 Respiratory: Yes: CTA Bilaterally Gastrointestinal: Yes: Soft, Other (colostomy) Genitourinary: Yes: WNL Musculoskeletal: Yes: WNL Neurological: Yes: Oriented Psychiatric: Yes: Oriented Labs: CBC, BMP 08/16/18 05:41 08/16/18 05:41 INR, PTT INR 1.13 (0.83-1.09) H 08/09/18 11:00 Problem List - Problems (1) MARKIE (acute kidney injury) Code(s): N17.9 - ACUTE KIDNEY FAILURE, UNSPECIFIED (2) Abdominal pain Code(s): R10.9 - UNSPECIFIED ABDOMINAL PAIN Qualifiers: Abdominal location: upper abdomen, unspecified Qualified Code(s): R10.10 - Upper abdominal pain, unspecified (3) Hyperkalemia Code(s): E87.5 - HYPERKALEMIA Assessment/Plan Current Medications Generic Name Dose Route Start Last Admin Trade Name Freq PRN Reason Stop Dose Admin Acetaminophen 650 mg 08/10/18 10:39 08/15/18 23:05 Tylenol - PO 650 mg Q4H PRN Administration SEVERE PAIN SCALE 6-10 Artificial Tears 1 drop 08/09/18 22:00 08/16/18 10:07 Artificial Tears OD 1 drop BID [facility] Administration Atorvastatin Calcium 20 mg 08/09/18 22:00 08/15/18 22:28 Lipitor - PO 20 mg HS [facility] Administration Calcium/Vitamin D 1 tab 08/10/18 10:00 08/16/18 10:08 Oscal 250 Mg+D - PO 1 tab DAILY [facility] Administration Diazepam 5 mg 08/10/18 22:00 08/16/18 10:08 Valium - PO 5 mg BID [facility] Administration Fenofibric Acid 135 mg 08/10/18 10:00 08/16/18 10:08 Trilipix - PO 135 mg DAILY [facility] Administration Heparin Sodium (Porcine) 5,000 unit 08/09/18 22:00 08/16/18 10:07 Heparin - SQ 5,000 unit BID [facility] Administration Sodium Chloride 1,000 mls @ 83 mls/hr 08/13/18 16:30 08/16/18 00:54 1/2 Normal Saline IV 83 mls/hr ASDIR [facility] Administration Levothyroxine Sodium 50 mcg 08/10/18 07:00 08/16/18 07:11 Synthroid - PO 50 mcg AM [facility] Administration Magnesium Oxide 400 mg 08/10/18 10:00 08/16/18 10:08 Mag-Ox - PO 400 mg DAILY [facility] Administration Metoprolol Succinate 25 mg 08/10/18 10:00 08/16/18 10:08 Toprol Xl - PO 25 mg DAILY [facility] Administration Ondansetron HCl 8 mg 08/12/18 08:08 08/16/18 10:13 Zofran - PO 8 mg Q8H PRN Administration NAUSEA Pantoprazole Sodium 40 mg 08/10/18 10:00 08/16/18 10:08 Protonix - PO 40 mg BID [facility] Administration Sertraline HCl 50 mg 08/10/18 10:00 08/16/18 10:08 Zoloft - PO 50 mg DAILY [facility] Administration Simethicone 80 mg 08/10/18 15:28 08/12/18 21:14 Mylicon Liquid - PO 80 mg QID PRN Administration GAS Sucralfate 1 gm 08/10/18 14:00 08/16/18 10:07 Carafate Oral Suspension - PO 1 gm QID [facility] Administration Zolpidem Tartrate 5 mg 08/15/18 20:19 08/15/18 22:28 Ambien - PO 5 mg HS PRN Administration INSOMNIA Laboratory Tests 08/10/18 16:05 Urine Protein Negative Urine Blood Negative Impression 1. MARKIE 2. hyperkalemia 3. abdominal pain 4. hx of perforated diverticula 5. acidosis 6. hld 7. CAD 8. HTN 9. anxiety 10. 1.3 cm left adrenal nodule Plan - decrease rate of fluids - ua neg for blood or protein - will need outpt follow up - potassium improved - pt tolerating diet - repeat labs in am
[2018-08-16] MEDS: ACETAMINOPHEN 325 MG TABLET (FP) PO PRN (13:22)
[2018-08-16 15:46] VITALS: BMI 29.2
--- NOTE | 2018-08-16 21:00 | PN ---
Progress Note, Physician History of Present Illness: no more pain - Current Medication List Current Medications: Active Medications Acetaminophen (Tylenol -) 650 mg PO Q4H PRN PRN Reason: SEVERE PAIN SCALE 6-10 Last Admin: 08/16/18 13:22 Dose: 650 mg Artificial Tears (Artificial Tears) 1 drop OD BID [facility] Last Admin: 08/16/18 10:07 Dose: 1 drop Atorvastatin Calcium (Lipitor -) 20 mg PO HS [facility] Last Admin: 08/15/18 22:28 Dose: 20 mg Calcium/Vitamin D (Oscal 250 Mg+D -) 1 tab PO DAILY [facility] Last Admin: 08/16/18 10:08 Dose: 1 tab Diazepam (Valium -) 5 mg PO BID [facility] Last Admin: 08/16/18 10:08 Dose: 5 mg Fenofibric Acid (Trilipix -) 135 mg PO DAILY [facility] Last Admin: 08/16/18 10:08 Dose: 135 mg Heparin Sodium (Porcine) (Heparin -) 5,000 unit SQ BID [facility] Last Admin: 08/16/18 10:07 Dose: 5,000 unit Sodium Chloride (1/2 Normal Saline) 1,000 mls @ 50 mls/hr IV ASDIR [facility] Last Admin: 08/16/18 12:17 Dose: 50 mls/hr Levothyroxine Sodium (Synthroid -) 50 mcg PO AM [facility] Last Admin: 08/16/18 07:11 Dose: 50 mcg Magnesium Oxide (Mag-Ox -) 400 mg PO DAILY [facility] Last Admin: 08/16/18 10:08 Dose: 400 mg Metoprolol Succinate (Toprol Xl -) 25 mg PO DAILY [facility] Last Admin: 08/16/18 10:08 Dose: 25 mg Ondansetron HCl (Zofran -) 8 mg PO Q8H PRN PRN Reason: NAUSEA Last Admin: 08/16/18 17:34 Dose: 8 mg Pantoprazole Sodium (Protonix -) 40 mg PO BID [facility] Last Admin: 08/16/18 10:08 Dose: 40 mg Sertraline HCl (Zoloft -) 50 mg PO DAILY [facility] Last Admin: 08/16/18 10:08 Dose: 50 mg Simethicone (Mylicon Liquid -) 80 mg PO QID PRN PRN Reason: GAS Last Admin: 08/12/18 21:14 Dose: 80 mg Sucralfate (Carafate Oral Suspension -) 1 gm PO QID [facility] Last Admin: 08/16/18 17:32 Dose: 1 gm Zolpidem Tartrate (Ambien -) 5 mg PO HS PRN PRN Reason: INSOMNIA Last Admin: 08/15/18 22:28 Dose: 5 mg - Objective Vital Signs: Vital Signs Temperature 98.3 F 08/16/18 17:53 Pulse Rate 84 08/16/18 17:53 Respiratory Rate 18 08/16/18 17:53 Blood Pressure 127/67 08/16/18 17:53 O2 Sat by Pulse Oximetry (%) 99 08/16/18 20:46 Constitutional: Yes: No Distress HENT: Yes: Atraumatic Neck: Yes: Supple Cardiovascular: Yes: Regular Rate and Rhythm Respiratory: Yes: CTA Bilaterally Gastrointestinal: Yes: Normal Bowel Sounds Extremities: Yes: WNL Edema: No Neurological: Yes: Alert, Oriented Labs: CBC, BMP 08/16/18 05:41 08/16/18 05:41 INR, PTT INR 1.13 (0.83-1.09) H 08/09/18 11:00 Problem List - Problems (1) MARKIE (acute kidney injury) Code(s): N17.9 - ACUTE KIDNEY FAILURE, UNSPECIFIED (2) Abdominal pain Code(s): R10.9 - UNSPECIFIED ABDOMINAL PAIN Qualifiers: Abdominal location: upper abdomen, unspecified Qualified Code(s): R10.10 - Upper abdominal pain, unspecified (3) Colostomy in place Code(s): Z93.3 - COLOSTOMY STATUS (4) Hyperkalemia Code(s): E87.5 - HYPERKALEMIA (5) Status post Anthony's procedure Code(s): Z93.3 - COLOSTOMY STATUS (6) HLD (hyperlipidemia) Code(s): E78.5 - HYPERLIPIDEMIA, UNSPECIFIED (7) HTN (hypertension) Code(s): I10 - ESSENTIAL (PRIMARY) HYPERTENSION Qualifiers: Hypertension type: essential hypertension Qualified Code(s): I10 - Essential (primary) hypertension (8) Hypothyroidism Code(s): E03.9 - HYPOTHYROIDISM, UNSPECIFIED Qualifiers: Hypothyroidism type: acquired Qualified Code(s): E03.9 - Hypothyroidism, unspecified Assessment/Plan Impression 1. MARKIE 2. hyperkalemia 3. abdominal pain 4. hx of perforated diverticula 5. acidosis 6. hld 7. CAD 8. HTN 9. anxiety 10. 1.3 cm left adrenal nodule continue current meds COVERING DR JAQUEZ
[2018-08-16] MEDS: ATORVASTATIN CA 20 MG TABLET (FP) PO SCH (21:28)
[2018-08-16] MEDS: ZOLPIDEM TARTRATE 5 MG TABLET PO PRN (21:28)
[2018-08-17] MEDS: ONDANSETRON 4 MG TABLET PO PRN (06:18)
[2018-08-17] MEDS: LEVOTHYROXINE NA 50 MCG TABLET (FP) PO SCH (06:19)
[2018-08-17 07:56] LABS: BLOOD UREA NITROGEN 23.9 mg/dL (7-18); CALCIUM 8.7 mg/dL (8.5-10.1); CREATININE 2.1 mg/dL (0.55-1.3); POTASSIUM 4.8 mmol/L (3.5-5.1)
[2018-08-17] MEDS: SUCRALFATE 1 GM/10 ML UNIT DOSE CUPS PO SCH ×4 (10:27→21:44)
[2018-08-17] MEDS: diazePAM 5 MG TABLET PO SCH (10:28)
[2018-08-17] MEDS: MAGNESIUM OXIDE 400 MG TABLET (FP) PO SCH (10:28)
[2018-08-17] MEDS: PANTOPRAZOLE 40 MG TABLET (FP) PO SCH ×2 (10:28→21:44)
[2018-08-17] MEDS: FENOFIBRIC ACID 135 MG CAP PO SCH (10:28)
[2018-08-17] MEDS: metoPROLOL SUCCINATE 25 MG TAB.SR.24H (FP) PO SCH (10:28)
[2018-08-17] MEDS: SERTRALINE HCL 50 MG TABLET (FP) PO SCH (10:28)
[2018-08-17] MEDS: ARTIFICIAL TEARS (POLYVINYL ALCOHOL) OPTH DROPS OD SCH ×2 (10:30→21:47)
[2018-08-17] MEDS ORDERED: PT OWN MED DRAWER 7, Y5N ONE (10:31)
[2018-08-17] MEDS: CALCIUM 250MG/VIT-D 125 UNITS 1 COMBO TABLET PO SCH (10:32)
[2018-08-17] MEDS: SODIUM CHLORIDE 0.45% 1,000 ML IV SCH (10:58)
[2018-08-17] MEDS: ACETAMINOPHEN 325 MG TABLET (FP) PO PRN ×2 (11:29→19:40)
--- NOTE | 2018-08-17 11:42 | PN ---
Progress Note, Physician History of Present Illness: Pt seen and examined at bedside. She complains of diarrhea. She denies abd pain. - Current Medication List Current Medications: Active Medications Acetaminophen (Tylenol -) 650 mg PO Q4H PRN PRN Reason: SEVERE PAIN SCALE 6-10 Last Admin: 08/17/18 11:29 Dose: 650 mg Artificial Tears (Artificial Tears) 1 drop OD BID [facility] Last Admin: 08/17/18 10:30 Dose: Not Given Atorvastatin Calcium (Lipitor -) 20 mg PO HS [facility] Last Admin: 08/16/18 21:28 Dose: 20 mg Calcium/Vitamin D (Oscal 250 Mg+D -) 1 tab PO DAILY [facility] Last Admin: 08/17/18 10:32 Dose: 1 tab Diazepam (Valium -) 5 mg PO BID [facility] Last Admin: 08/17/18 10:28 Dose: 5 mg Fenofibric Acid (Trilipix -) 135 mg PO DAILY [facility] Last Admin: 08/17/18 10:28 Dose: 135 mg Sodium Chloride (1/2 Normal Saline) 1,000 mls @ 50 mls/hr IV ASDIR [facility] Last Admin: 08/17/18 10:58 Dose: 50 mls/hr Levothyroxine Sodium (Synthroid -) 50 mcg PO AM [facility] Last Admin: 08/17/18 06:19 Dose: 50 mcg Magnesium Oxide (Mag-Ox -) 400 mg PO DAILY [facility] Last Admin: 08/17/18 10:28 Dose: 400 mg Metoprolol Succinate (Toprol Xl -) 25 mg PO DAILY [facility] Last Admin: 08/17/18 10:28 Dose: 25 mg Ondansetron HCl (Zofran -) 8 mg PO Q8H PRN PRN Reason: NAUSEA Last Admin: 08/17/18 06:18 Dose: 8 mg Pantoprazole Sodium (Protonix -) 40 mg PO BID [facility] Last Admin: 08/17/18 10:28 Dose: 40 mg Sertraline HCl (Zoloft -) 50 mg PO DAILY [facility] Last Admin: 08/17/18 10:28 Dose: 50 mg Simethicone (Mylicon Liquid -) 80 mg PO QID PRN PRN Reason: GAS Last Admin: 08/12/18 21:14 Dose: 80 mg Sucralfate (Carafate Oral Suspension -) 1 gm PO QID [facility] Last Admin: 08/17/18 10:27 Dose: 1 gm Zolpidem Tartrate (Ambien -) 5 mg PO HS PRN PRN Reason: INSOMNIA Last Admin: 08/16/18 21:28 Dose: 5 mg - Objective Vital Signs: Vital Signs Temperature 100 F H 08/17/18 06:00 Pulse Rate 80 08/17/18 06:00 Respiratory Rate 18 08/17/18 06:00 Blood Pressure 111/46 L 08/17/18 06:00 O2 Sat by Pulse Oximetry (%) 99 08/16/18 20:46 Constitutional: Yes: Calm Eyes: Yes: Conjunctiva Clear HENT: Yes: Atraumatic Neck: Yes: Supple Cardiovascular: Yes: S1, S2 Respiratory: Yes: CTA Bilaterally Gastrointestinal: Yes: Soft, Other (colostomy) Genitourinary: Yes: WNL Musculoskeletal: Yes: WNL Edema: No Neurological: Yes: Oriented Psychiatric: Yes: Oriented Labs: CBC, BMP 08/16/18 05:41 08/17/18 06:25 INR, PTT INR 1.13 (0.83-1.09) H 08/09/18 11:00 Problem List - Problems (1) MARKIE (acute kidney injury) Code(s): N17.9 - ACUTE KIDNEY FAILURE, UNSPECIFIED (2) Abdominal pain Code(s): R10.9 - UNSPECIFIED ABDOMINAL PAIN Qualifiers: Abdominal location: upper abdomen, unspecified Qualified Code(s): R10.10 - Upper abdominal pain, unspecified (3) Hyperkalemia Code(s): E87.5 - HYPERKALEMIA Assessment/Plan Current Medications Generic Name Dose Route Start Last Admin Trade Name Freq PRN Reason Stop Dose Admin Acetaminophen 650 mg 08/10/18 10:39 08/17/18 11:29 Tylenol - PO 650 mg Q4H PRN Administration SEVERE PAIN SCALE 6-10 Artificial Tears 1 drop 08/09/18 22:00 08/17/18 10:30 Artificial Tears OD Not Given BID [facility] Atorvastatin Calcium 20 mg 08/09/18 22:00 08/16/18 21:28 Lipitor - PO 20 mg HS [facility] Administration Calcium/Vitamin D 1 tab 08/10/18 10:00 08/17/18 10:32 Oscal 250 Mg+D - PO 1 tab DAILY [facility] Administration Diazepam 5 mg 08/10/18 22:00 08/17/18 10:28 Valium - PO 5 mg BID [facility] Administration Fenofibric Acid 135 mg 08/10/18 10:00 08/17/18 10:28 Trilipix - PO 135 mg DAILY [facility] Administration Sodium Chloride 1,000 mls @ 50 mls/hr 08/16/18 10:38 08/17/18 10:58 1/2 Normal Saline IV 50 mls/hr ASDIR [facility] Administration Levothyroxine Sodium 50 mcg 08/10/18 07:00 08/17/18 06:19 Synthroid - PO 50 mcg AM [facility] Administration Magnesium Oxide 400 mg 08/10/18 10:00 08/17/18 10:28 Mag-Ox - PO 400 mg DAILY [facility] Administration Metoprolol Succinate 25 mg 08/10/18 10:00 08/17/18 10:28 Toprol Xl - PO 25 mg DAILY [facility] Administration Ondansetron HCl 8 mg 08/12/18 08:08 08/17/18 06:18 Zofran - PO 8 mg Q8H PRN Administration NAUSEA Pantoprazole Sodium 40 mg 08/10/18 10:00 08/17/18 10:28 Protonix - PO 40 mg BID [facility] Administration Sertraline HCl 50 mg 08/10/18 10:00 08/17/18 10:28 Zoloft - PO 50 mg DAILY [facility] Administration Simethicone 80 mg 08/10/18 15:28 08/12/18 21:14 Mylicon Liquid - PO 80 mg QID PRN Administration GAS Sucralfate 1 gm 08/10/18 14:00 08/17/18 10:27 Carafate Oral Suspension - PO 1 gm QID [facility] Administration Zolpidem Tartrate 5 mg 08/15/18 20:19 08/16/18 21:28 Ambien - PO 5 mg HS PRN Administration INSOMNIA Impression 1. MARKIE 2. hyperkalemia 3. abdominal pain 4. hx of perforated diverticula 5. acidosis 6. hld 7. CAD 8. HTN 9. anxiety 10. 1.3 cm left adrenal nodule Plan - cont with fluids - monitor renal function - will need outpt follow up - diuretics on hold - potassium improved - pt tolerating diet - repeat labs in am
--- NOTE | 2018-08-17 16:56 | CON.GI ---
Consult Consult Specialty:: Gastroenterology Referred by:: Dr Paniagua - History of Present Illness History of Present Illness: 77F developed periumbilical and epigastric pain that radiated into her chest and caused her to think that she was having a " heart attack". She underwent 4 vessel CABG at [facility] in 2015. She had nausea but no vomiting. She felt better after getting Mylanta and Zantac in the ER. The pain has not returned and she is hungry. She is s/p a Anthony procedure with partial rectosigmoid resection for perforated diverticulitis leading to sepsis on 04/[address] Bustamante. Her CT reveals no residual abscesses. A parasternal hernia was seen but she denies pain at her colostomy. Gallstones were also noted. She was followed by Dr Francisco Pennington in the past but never had an EGD or a colonoscopy. 77F developed periumbilical and epigastric pain that radiated into her chest and caused her to think that she was having a " heart attack". She underwent 4 vessel CABG at [facility] in 2015. She had nausea but no vomiting. She felt better after getting Mylanta and Zantac in the ER. The pain has not returned and she is hungry. She is s/p a Anthnoy procedure with partial rectosigmoid resection for perforated diverticulitis leading to sepsis on 04/[address] Bustamante. Her CT reveals no residual abscesses. A parasternal hernia was seen but she denies pain at her colostomy. Gallstones were also noted. She was followed by Dr Francisco Pennington in the past but never had an EGD or a colonoscopy. - Past Medical History Cardio/Vascular: Yes: CAD (s/p 4 vessel CABG in 2015), HTN, Hyperlipdemia Hepatobiliary: Yes: Cholelithiasis Renal/: Yes: Renal Failure Psych: Yes: Anxiety, Depression, Other Endocrine: Yes: Hypothyroidism - Past Surgical History Past Surgical History: Yes: CABG (4 vessel CABG at [facility] 2015), Colectomy (s/p partial colectomy ( 16cm) of rectosgmoid with colosotomy creation 04/03/18 Dr. 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 History of Recent Travel: No Home Medications - Allergies Allergies/Adverse Reactions: Allergies Allergy/AdvReac Type Severity Reaction Status Date / Time Fish Containing Products Allergy Unknown Itching Verified 08/11/18 16:25 - Home Medications Home Medications: Ambulatory Orders Albuterol 0.083% Nebulizer Nanette [Ventolin 0.083%] 1 neb NEB QID PRN 08/09/18 Atorvastatin Calcium [Lipitor] 20 mg PO HS 08/09/18 Calcium Citrate 250 mg PO DAILY 08/09/18 Diazepam [Valium] 5 mg PO DAILY 08/09/18 Fenofibrate Nanocrystallized [Fenofibrate] 145 mg PO DAILY 08/09/18 Hydrochlorothiazide [Hctz -] 12.5 mg PO DAILY 08/09/18 Levothyroxine Sodium [Levoxyl] 50 mcg PO DAILY 08/09/18 Magnesium Oxide [Magnesium] 400 mg PO DAILY 08/09/18 Metoprolol Succinate [Toprol Xl] 25 mg PO DAILY 08/09/18 Olmesartan Medoxomil [Benicar (Nf)] 20 mg PO DAILY 08/09/18 Ondansetron [Ondansetron Odt] 4 mg SL QID PRN 08/09/18 Polyvinyl Alcohol [Artificial Tears] 1 drop OD BID 08/09/18 Ranitidine [Zantac -] 300 mg PO HS 08/09/18 Sertraline HCl [Zoloft -] 50 mg PO DAILY 08/09/18 Zolpidem Tartrate [Ambien] 10 mg PO HS 08/09/18 Family Disease History - Family Disease History Family Disease History: Other: Father ( 60 of "depression"), Mother ( 80 of "depression"), Brother (2 were killed at war) Physical Exam-GI Vital Signs: Vital Signs Temperature 98.4 F 08/17/18 15:00 Pulse Rate 88 08/17/18 15:00 Respiratory Rate 18 08/17/18 15:00 Blood Pressure 118/76 08/17/18 15:00 O2 Sat by Pulse Oximetry (%) 95 08/17/18 10:00 Labs: CBC, BMP 08/16/18 05:41 08/17/18 06:25 INR, PTT INR 1.13 (0.83-1.09) H 08/09/18 11:00 Problem List - Problems (1) Diverticulosis Code(s): K57.90 - DVRTCLOS OF INTEST, PART UNSP, W/O PERF OR ABSCESS W/O BLEED (2) Colostomy in place Code(s): Z93.3 - COLOSTOMY STATUS (3) Abdominal pain Code(s): R10.9 - UNSPECIFIED ABDOMINAL PAIN Qualifiers: Abdominal location: upper abdomen, unspecified Qualified Code(s): R10.10 - Upper abdominal pain, unspecified (4) Hyperkalemia Code(s): E87.5 - HYPERKALEMIA (5) Status post Anthony's procedure Code(s): Z93.3 - COLOSTOMY STATUS (6) Depression with anxiety Code(s): F41.8 - OTHER SPECIFIED ANXIETY DISORDERS (7) HLD (hyperlipidemia) Code(s): E78.5 - HYPERLIPIDEMIA, UNSPECIFIED (8) HTN (hypertension) Code(s): I10 - ESSENTIAL (PRIMARY) HYPERTENSION Qualifiers: Hypertension type: essential hypertension Qualified Code(s): I10 - Essential (primary) hypertension (9) Hypothyroidism Code(s): E03.9 - HYPOTHYROIDISM, UNSPECIFIED Qualifiers: Hypothyroidism type: acquired Qualified Code(s): E03.9 - Hypothyroidism, unspecified
--- NOTE | 2018-08-17 17:00 | PN ---
GI Progress Note Subjective: GI NOte: Already on this case so no need to reconsult. Apparently developed diarrhea this morning. Has not had a BM since. Her colostomy bag is empty. She has an appetite. No pain at present - Objective Vital Signs: Vital Signs Temperature 98.4 F 08/17/18 15:00 Pulse Rate 88 08/17/18 15:00 Respiratory Rate 18 08/17/18 15:00 Blood Pressure 118/76 08/17/18 15:00 O2 Sat by Pulse Oximetry (%) 95 08/17/18 10:00 Laboratory Tests 08/16/18 08/16/18 08/17/18 05:41 05:41 06:25 WBC 8.3 Hct 25.0 L Plt Count 333 BUN 23.9 H Creatinine 2.1 H Albumin 2.8 L Constitutional: No Distress Gastrointestinal Inspection: Yes: Other (empty colostomy bag) ...Auscultate: Yes: Normoactive Bowel Sounds ...Palpate: Yes: Soft, Other (nontender) Labs: CBC, BMP 08/16/18 05:41 08/17/18 06:25 INR, PTT INR 1.13 (0.83-1.09) H 08/09/18 11:00 Assessment/Plan Impression: - Diarrhea - 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 Plan: Observe for true diarrhea Stool for WBCs Problem List - Problems (1) Diarrhea Assessment/Plan: Suspect this will prove to be spurious but will observe. C diff culture already repeated. If she develops diversion colitis a closure of colostomy and bowel reunion may become more pressing. Code(s): R19.7 - DIARRHEA, UNSPECIFIED (2) Diverticulosis Code(s): K57.90 - DVRTCLOS OF INTEST, PART UNSP, W/O PERF OR ABSCESS W/O BLEED (3) Colostomy in place Code(s): Z93.3 - COLOSTOMY STATUS (4) Abdominal pain Code(s): R10.9 - UNSPECIFIED ABDOMINAL PAIN Qualifiers: Abdominal location: upper abdomen, unspecified Qualified Code(s): R10.10 - Upper abdominal pain, unspecified (5) Hyperkalemia Code(s): E87.5 - HYPERKALEMIA (6) Status post Anthony's procedure Code(s): Z93.3 - COLOSTOMY STATUS (7) Depression with anxiety Code(s): F41.8 - OTHER SPECIFIED ANXIETY DISORDERS (8) HLD (hyperlipidemia) Code(s): E78.5 - HYPERLIPIDEMIA, UNSPECIFIED (9) HTN (hypertension) Code(s): I10 - ESSENTIAL (PRIMARY) HYPERTENSION Qualifiers: Hypertension type: essential hypertension Qualified Code(s): I10 - Essential (primary) hypertension (10) Hypothyroidism Code(s): E03.9 - HYPOTHYROIDISM, UNSPECIFIED Qualifiers: Hypothyroidism type: acquired Qualified Code(s): E03.9 - Hypothyroidism, unspecified
[2018-08-17] MEDS: ATORVASTATIN CA 20 MG TABLET (FP) PO SCH (21:44)
[2018-08-17] MEDS: ZOLPIDEM TARTRATE 5 MG TABLET PO PRN (21:48)
--- NOTE | 2018-08-18 02:33 | PN ---
Progress Note, Physician History of Present Illness: Pt seen and examined 08/17/18 however note is being entered now Pt has been having diarrhea - Current Medication List Current Medications: Active Medications Acetaminophen (Tylenol -) 650 mg PO Q4H PRN PRN Reason: SEVERE PAIN SCALE 6-10 Last Admin: 08/17/18 19:40 Dose: 650 mg Artificial Tears (Artificial Tears) 1 drop OD BID [facility] Last Admin: 08/17/18 21:47 Dose: Not Given Atorvastatin Calcium (Lipitor -) 20 mg PO HS [facility] Last Admin: 08/17/18 21:44 Dose: 20 mg Calcium/Vitamin D (Oscal 250 Mg+D -) 1 tab PO DAILY [facility] Last Admin: 08/17/18 10:32 Dose: 1 tab Fenofibric Acid (Trilipix -) 135 mg PO DAILY [facility] Last Admin: 08/17/18 10:28 Dose: 135 mg Sodium Chloride (1/2 Normal Saline) 1,000 mls @ 50 mls/hr IV ASDIR [facility] Last Admin: 08/17/18 10:58 Dose: 50 mls/hr Levothyroxine Sodium (Synthroid -) 50 mcg PO AM [facility] Last Admin: 08/17/18 06:19 Dose: 50 mcg Magnesium Oxide (Mag-Ox -) 400 mg PO DAILY [facility] Last Admin: 08/17/18 10:28 Dose: 400 mg Metoprolol Succinate (Toprol Xl -) 25 mg PO DAILY [facility] Last Admin: 08/17/18 10:28 Dose: 25 mg Ondansetron HCl (Zofran -) 8 mg PO Q8H PRN PRN Reason: NAUSEA Last Admin: 08/17/18 06:18 Dose: 8 mg Pantoprazole Sodium (Protonix -) 40 mg PO BID [facility] Last Admin: 08/17/18 21:44 Dose: 40 mg Sertraline HCl (Zoloft -) 50 mg PO DAILY [facility] Last Admin: 08/17/18 10:28 Dose: 50 mg Simethicone (Mylicon Liquid -) 80 mg PO QID PRN PRN Reason: GAS Last Admin: 08/12/18 21:14 Dose: 80 mg Sucralfate (Carafate Oral Suspension -) 1 gm PO QID [facility] Last Admin: 08/17/18 21:44 Dose: 1 gm Zolpidem Tartrate (Ambien -) 5 mg PO HS PRN PRN Reason: INSOMNIA Last Admin: 08/17/18 21:48 Dose: 5 mg - Objective Vital Signs: Vital Signs Temperature 98.6 F 08/17/18 18:30 Pulse Rate 75 08/17/18 18:30 Respiratory Rate 18 08/17/18 18:30 Blood Pressure 120/56 L 08/17/18 18:30 O2 Sat by Pulse Oximetry (%) 95 08/17/18 21:00 Neck: Yes: WNL, Supple Cardiovascular: Yes: WNL, Regular Rate and Rhythm Respiratory: Yes: WNL, Regular, CTA Bilaterally Gastrointestinal: Yes: WNL, Normal Bowel Sounds, Soft, Other ((+) colostomy RLQ) Labs: CBC, BMP 08/16/18 05:41 08/17/18 06:25 INR, PTT INR 1.13 (0.83-1.09) H 08/09/18 11:00 Problem List - Problems (1) Diarrhea Assessment/Plan: Stool studies Cont to monitor GI consult noted Code(s): R19.7 - DIARRHEA, UNSPECIFIED (2) MARKIE (acute kidney injury) Assessment/Plan: Cont IVF Monitor labs Code(s): N17.9 - ACUTE KIDNEY FAILURE, UNSPECIFIED (3) Abdominal pain Assessment/Plan: No further complaints Cont to monnitor Pt still refusing ct scan Code(s): R10.9 - UNSPECIFIED ABDOMINAL PAIN Qualifiers: Abdominal location: upper abdomen, unspecified Qualified Code(s): R10.10 - Upper abdominal pain, unspecified (4) Colostomy in place Assessment/Plan: Cont colostomy care Code(s): Z93.3 - COLOSTOMY STATUS (5) Anemia Assessment/Plan: Monitor H/H Code(s): D64.9 - ANEMIA, UNSPECIFIED (6) HLD (hyperlipidemia) Assessment/Plan: Cont fenofibrate Code(s): E78.5 - HYPERLIPIDEMIA, UNSPECIFIED (7) HTN (hypertension) Assessment/Plan: Cont metoprolol BP stable Code(s): I10 - ESSENTIAL (PRIMARY) HYPERTENSION Qualifiers: Hypertension type: essential hypertension Qualified Code(s): I10 - Essential (primary) hypertension (8) Hypothyroidism Assessment/Plan: Cont levothyroxine Code(s): E03.9 - HYPOTHYROIDISM, UNSPECIFIED Qualifiers: Hypothyroidism type: acquired Qualified Code(s): E03.9 - Hypothyroidism, unspecified (9) Depression with anxiety Assessment/Plan: Cont valium/lexapro Code(s): F41.8 - OTHER SPECIFIED ANXIETY DISORDERS (10) Status post Anthony's procedure Code(s): Z93.3 - COLOSTOMY STATUS
[2018-08-18] MEDS: LEVOTHYROXINE NA 50 MCG TABLET (FP) PO SCH (06:13)
[2018-08-18] MEDS: ONDANSETRON 4 MG TABLET PO PRN ×2 (06:15→13:57)
[2018-08-18] MEDS: SODIUM CHLORIDE 0.45% 1,000 ML IV SCH (07:30)
[2018-08-18 07:59] LABS: BLOOD UREA NITROGEN 22.7 mg/dL (7-18); CALCIUM 8.5 mg/dL (8.5-10.1); CREATININE 2.2 mg/dL (0.55-1.3); POTASSIUM 4.6 mmol/L (3.5-5.1)
[2018-08-18] MEDS ORDERED: PT OWN MED DRAWER 7, Y5N ONE (09:41)
[2018-08-18] MEDS: MAGNESIUM OXIDE 400 MG TABLET (FP) PO SCH (09:48)
[2018-08-18] MEDS: SERTRALINE HCL 50 MG TABLET (FP) PO SCH (09:48)
[2018-08-18] MEDS: ARTIFICIAL TEARS (POLYVINYL ALCOHOL) OPTH DROPS OD SCH ×2 (09:48→22:01)
[2018-08-18] MEDS: SUCRALFATE 1 GM/10 ML UNIT DOSE CUPS PO SCH ×4 (09:48→22:01)
[2018-08-18] MEDS: metoPROLOL SUCCINATE 25 MG TAB.SR.24H (FP) PO SCH (09:49)
[2018-08-18] MEDS: PANTOPRAZOLE 40 MG TABLET (FP) PO SCH ×2 (09:50→21:15)
[2018-08-18] MEDS: CALCIUM 250MG/VIT-D 125 UNITS 1 COMBO TABLET PO SCH (09:50)
[2018-08-18] MEDS: diazePAM 5 MG TABLET PO SCH ×2 (09:51→21:16)
[2018-08-18] MEDS: FENOFIBRIC ACID 135 MG CAP PO SCH (09:51)
--- NOTE | 2018-08-18 11:56 | PN ---
Progress Note, Physician History of Present Illness: Pt seen and examined at bedside. She is awake and alert. She denies shortness of breath. She complains of diarrhea. - Current Medication List Current Medications: Active Medications Acetaminophen (Tylenol -) 650 mg PO Q4H PRN PRN Reason: SEVERE PAIN SCALE 6-10 Last Admin: 08/17/18 19:40 Dose: 650 mg Artificial Tears (Artificial Tears) 1 drop OD BID [facility] Last Admin: 08/18/18 09:48 Dose: Not Given Atorvastatin Calcium (Lipitor -) 20 mg PO HS [facility] Last Admin: 08/17/18 21:44 Dose: 20 mg Calcium/Vitamin D (Oscal 250 Mg+D -) 1 tab PO DAILY [facility] Last Admin: 08/18/18 09:50 Dose: 1 tab Diazepam (Valium -) 5 mg PO BID [facility] Last Admin: 08/18/18 09:51 Dose: 5 mg Fenofibric Acid (Trilipix -) 135 mg PO DAILY [facility] Last Admin: 08/18/18 09:51 Dose: Not Given Sodium Chloride (1/2 Normal Saline) 1,000 mls @ 50 mls/hr IV ASDIR [facility] Last Admin: 08/18/18 07:30 Dose: 50 mls/hr Levothyroxine Sodium (Synthroid -) 50 mcg PO AM [facility] Last Admin: 08/18/18 06:13 Dose: 50 mcg Magnesium Oxide (Mag-Ox -) 400 mg PO DAILY [facility] Last Admin: 08/18/18 09:48 Dose: 400 mg Metoprolol Succinate (Toprol Xl -) 25 mg PO DAILY [facility] Last Admin: 08/18/18 09:49 Dose: Not Given Ondansetron HCl (Zofran -) 8 mg PO Q8H PRN PRN Reason: NAUSEA Last Admin: 08/18/18 06:15 Dose: 8 mg Pantoprazole Sodium (Protonix -) 40 mg PO BID [facility] Last Admin: 08/18/18 09:50 Dose: 40 mg Sertraline HCl (Zoloft -) 50 mg PO DAILY [facility] Last Admin: 08/18/18 09:48 Dose: 50 mg Simethicone (Mylicon Liquid -) 80 mg PO QID PRN PRN Reason: GAS Last Admin: 08/12/18 21:14 Dose: 80 mg Sucralfate (Carafate Oral Suspension -) 1 gm PO QID [facility] Last Admin: 08/18/18 09:48 Dose: 1 gm Zolpidem Tartrate (Ambien -) 5 mg PO HS PRN PRN Reason: INSOMNIA Last Admin: 08/17/18 21:48 Dose: 5 mg - Objective Vital Signs: Vital Signs Temperature 99.2 F 08/18/18 06:00 Pulse Rate 81 08/18/18 06:00 Respiratory Rate 18 08/18/18 06:00 Blood Pressure 111/49 L 08/18/18 06:00 O2 Sat by Pulse Oximetry (%) 95 08/17/18 21:00 Constitutional: Yes: Calm Eyes: Yes: Conjunctiva Clear HENT: Yes: Atraumatic Neck: Yes: Supple Cardiovascular: Yes: S1, S2 Respiratory: Yes: CTA Bilaterally Gastrointestinal: Yes: Soft, Other (colostomy) Musculoskeletal: Yes: WNL Edema: No Neurological: Yes: Oriented Psychiatric: Yes: Oriented Labs: CBC, BMP 08/16/18 05:41 08/18/18 06:12 INR, PTT INR 1.13 (0.83-1.09) H 08/09/18 11:00 Problem List - Problems (1) MARKIE (acute kidney injury) Code(s): N17.9 - ACUTE KIDNEY FAILURE, UNSPECIFIED (2) Abdominal pain Code(s): R10.9 - UNSPECIFIED ABDOMINAL PAIN Qualifiers: Abdominal location: upper abdomen, unspecified Qualified Code(s): R10.10 - Upper abdominal pain, unspecified (3) Hyperkalemia Code(s): E87.5 - HYPERKALEMIA Assessment/Plan Current Medications Generic Name Dose Route Start Last Admin Trade Name Freq PRN Reason Stop Dose Admin Acetaminophen 650 mg 08/10/18 10:39 08/17/18 19:40 Tylenol - PO 650 mg Q4H PRN Administration SEVERE PAIN SCALE 6-10 Artificial Tears 1 drop 08/09/18 22:00 08/18/18 09:48 Artificial Tears OD Not Given BID [facility] Atorvastatin Calcium 20 mg 08/09/18 22:00 08/17/18 21:44 Lipitor - PO 20 mg HS [facility] Administration Calcium/Vitamin D 1 tab 08/10/18 10:00 08/18/18 09:50 Oscal 250 Mg+D - PO 1 tab DAILY [facility] Administration Diazepam 5 mg 08/18/18 10:00 08/18/18 09:51 Valium - PO 5 mg BID [facility] Administration Fenofibric Acid 135 mg 08/10/18 10:00 08/18/18 09:51 Trilipix - PO Not Given DAILY [facility] Sodium Chloride 1,000 mls @ 50 mls/hr 08/16/18 10:38 08/18/18 07:30 1/2 Normal Saline IV 50 mls/hr ASDIR [facility] Administration Levothyroxine Sodium 50 mcg 08/10/18 07:00 08/18/18 06:13 Synthroid - PO 50 mcg AM [facility] Administration Magnesium Oxide 400 mg 08/10/18 10:00 08/18/18 09:48 Mag-Ox - PO 400 mg DAILY [facility] Administration Metoprolol Succinate 25 mg 08/10/18 10:00 08/18/18 09:49 Toprol Xl - PO Not Given DAILY [facility] Ondansetron HCl 8 mg 08/12/18 08:08 08/18/18 06:15 Zofran - PO 8 mg Q8H PRN Administration NAUSEA Pantoprazole Sodium 40 mg 08/10/18 10:00 08/18/18 09:50 Protonix - PO 40 mg BID [facility] Administration Sertraline HCl 50 mg 08/10/18 10:00 08/18/18 09:48 Zoloft - PO 50 mg DAILY [facility] Administration Simethicone 80 mg 08/10/18 15:28 08/12/18 21:14 Mylicon Liquid - PO 80 mg QID PRN Administration GAS Sucralfate 1 gm 08/10/18 14:00 08/18/18 09:48 Carafate Oral Suspension - PO 1 gm QID [facility] Administration Zolpidem Tartrate 5 mg 08/15/18 20:19 08/17/18 21:48 Ambien - PO 5 mg HS PRN Administration INSOMNIA Impression 1. MARKIE 2. hyperkalemia 3. abdominal pain 4. hx of perforated diverticula 5. acidosis 6. hld 7. CAD 8. HTN 9. anxiety 10. 1.3 cm left adrenal nodule Plan - follow stool studies - cont with fluids - heme follow up for elevated kappa and lambda - ua neg for blood or protein - renal function not changed much - pt tolerating diet - repeat labs in am
--- NOTE | 2018-08-18 12:39 | DS ---
Physical Examination Vital Signs: Vital Signs Temperature 97.6 F 08/18/18 09:30 Pulse Rate 90 08/18/18 09:30 Respiratory Rate 20 08/18/18 09:30 Blood Pressure 127/84 08/18/18 09:30 O2 Sat by Pulse Oximetry (%) 95 08/17/18 21:00 Labs: CBC, BMP 08/16/18 05:41 08/18/18 06:12 Discharge Summary Reason For Visit: ABDOMINAL PAIN Current Active Problems MARKIE (acute kidney injury) (Acute) Abdominal pain (Acute) Colostomy in place (Acute) Diarrhea (Acute) Diverticulosis (Acute) Hyperkalemia (Acute) Status post Anthony's procedure (Acute) HTN HLD GERD Hospital Course: he patient is a 77 year old female, with a significant past medical history of 2 intra-abdominal abscesses/diverticulitis (s/p Anthony procedure), quadruple cardiac bypass, HLD, hypothyroidism, HTN, GERD, and anxiety, who presents to the emergency department with, 3 days of worsening upper abdominal pain with nausea and decreased passing of gas. Pt was seen by GI and has been refusing CT scan of abd/pelvis. Pt diet was advanced and she has been tolerating it. Pt was also seen by renal for ARF but creatinine has slowly decreased w/ IV fluids. For the past 24 hrs pt complained of diarrhea but stool studies have been negative up to date. Pt to follow up with her PMD(Dr Green) and her surgeon ( dr Torres). Condition: Good - Instructions Diet, Activity, Other Instructions: 2 gram sodium and renal diet See Dr Celestino Green in 1 week Disposition: VNS/HOME HEALTH CARE - Home Medications Comprehensive Discharge Medication List: Ambulatory Orders Albuterol 0.083% Nebulizer Nanette [Ventolin 0.083% Nebulizer Soln -] 1 neb NEB QID PRN 08/09/18 Atorvastatin Calcium [Lipitor] 20 mg PO HS 08/09/18 Calcium Citrate 250 mg PO DAILY 08/09/18 Diazepam [Valium] 5 mg PO DAILY 08/09/18 Fenofibrate Nanocrystallized [Fenofibrate] 145 mg PO DAILY 08/09/18 Levothyroxine Sodium [Levoxyl] 50 mcg PO DAILY 08/09/18 Magnesium Oxide [Magnesium] 400 mg PO DAILY 08/09/18 Ondansetron [Zofran *Odt*] 4 mg SL QID PRN 08/09/18 Polyvinyl Alcohol [Artificial Tears] 1 drop OD BID 08/09/18 Ranitidine [Zantac -] 300 mg PO HS 08/09/18 Sertraline HCl [Zoloft -] 50 mg PO DAILY 08/09/18 Zolpidem Tartrate [Ambien] 10 mg PO HS 08/09/18 Diazepam [Valium] 5 mg PO BID #60 tablet MDD 2 tabs 08/18/18 Metoprolol Succinate [Toprol Xl] 25 mg PO DAILY #30 tab.er.24h 08/18/18 Pantoprazole Sodium [Protonix -] 40 mg PO BID #60 tablet.ec 08/18/18 Sucralfate Oral Suspension [Carafate Oral Suspension -] 1 gm PO QID #120 ml
[2018-08-18] MEDS: ACETAMINOPHEN 325 MG TABLET (FP) PO PRN ×2 (15:06→20:34)
[2018-08-18] MEDS: ATORVASTATIN CA 20 MG TABLET (FP) PO SCH (21:15)
[2018-08-18] MEDS: ZOLPIDEM TARTRATE 5 MG TABLET PO PRN (21:16)
--- NOTE | 2018-08-18 22:02 | PN ---
Progress Note, Physician History of Present Illness: No new complaints - Current Medication List Current Medications: Active Medications Acetaminophen (Tylenol -) 650 mg PO Q4H PRN PRN Reason: SEVERE PAIN SCALE 6-10 Last Admin: 08/18/18 20:34 Dose: 650 mg Artificial Tears (Artificial Tears) 1 drop OD BID [facility] Last Admin: 08/18/18 22:01 Dose: Not Given Atorvastatin Calcium (Lipitor -) 20 mg PO HS [facility] Last Admin: 08/18/18 21:15 Dose: 20 mg Calcium/Vitamin D (Oscal 250 Mg+D -) 1 tab PO DAILY [facility] Last Admin: 08/18/18 09:50 Dose: 1 tab Diazepam (Valium -) 5 mg PO BID [facility] Last Admin: 08/18/18 21:16 Dose: 5 mg Fenofibric Acid (Trilipix -) 135 mg PO DAILY [facility] Last Admin: 08/18/18 09:51 Dose: Not Given Sodium Chloride (1/2 Normal Saline) 1,000 mls @ 50 mls/hr IV ASDIR [facility] Last Admin: 08/18/18 07:30 Dose: 50 mls/hr Levothyroxine Sodium (Synthroid -) 50 mcg PO AM [facility] Last Admin: 08/18/18 06:13 Dose: 50 mcg Magnesium Oxide (Mag-Ox -) 400 mg PO DAILY [facility] Last Admin: 08/18/18 09:48 Dose: 400 mg Metoprolol Succinate (Toprol Xl -) 25 mg PO DAILY [facility] Last Admin: 08/18/18 09:49 Dose: Not Given Ondansetron HCl (Zofran -) 8 mg PO Q8H PRN PRN Reason: NAUSEA Last Admin: 08/18/18 13:57 Dose: 8 mg Pantoprazole Sodium (Protonix -) 40 mg PO BID [facility] Last Admin: 08/18/18 21:15 Dose: 40 mg Sertraline HCl (Zoloft -) 50 mg PO DAILY [facility] Last Admin: 08/18/18 09:48 Dose: 50 mg Simethicone (Mylicon Liquid -) 80 mg PO QID PRN PRN Reason: GAS Last Admin: 08/12/18 21:14 Dose: 80 mg Sucralfate (Carafate Oral Suspension -) 1 gm PO QID [facility] Last Admin: 08/18/18 22:01 Dose: 1 gm Zolpidem Tartrate (Ambien -) 5 mg PO HS PRN PRN Reason: INSOMNIA Last Admin: 08/18/18 21:16 Dose: 5 mg - Objective Vital Signs: Vital Signs Temperature 98.2 F 08/18/18 18:30 Pulse Rate 80 08/18/18 18:30 Respiratory Rate 20 08/18/18 18:30 Blood Pressure 136/69 08/18/18 18:30 O2 Sat by Pulse Oximetry (%) 95 08/17/18 21:00 Cardiovascular: Yes: WNL, Regular Rate and Rhythm Respiratory: Yes: WNL, Regular, CTA Bilaterally Gastrointestinal: Yes: WNL, Normal Bowel Sounds, Soft, Other ((+) RLQ colostomy) Labs: CBC, BMP 08/16/18 05:41 08/18/18 06:12 INR, PTT INR 1.13 (0.83-1.09) H 08/09/18 11:00 Problem List - Problems (1) Diarrhea Assessment/Plan: Stool studies negative to date Resolved Cont to monitor GI consult noted Code(s): R19.7 - DIARRHEA, UNSPECIFIED (2) MARKIE (acute kidney injury) Assessment/Plan: Creatinine improved w/ IV hydration DC planning Code(s): N17.9 - ACUTE KIDNEY FAILURE, UNSPECIFIED (3) Abdominal pain Assessment/Plan: No further complaints Pt still refusing ct scan Long d/w pt about dc planning and need for f/u w/ surgeon(Dr Torres) as outpt Code(s): R10.9 - UNSPECIFIED ABDOMINAL PAIN Qualifiers: Abdominal location: upper abdomen, unspecified Qualified Code(s): R10.10 - Upper abdominal pain, unspecified (4) Colostomy in place Assessment/Plan: Cont colostomy care Code(s): Z93.3 - COLOSTOMY STATUS (5) Anemia Assessment/Plan: Monitor H/H Code(s): D64.9 - ANEMIA, UNSPECIFIED (6) HLD (hyperlipidemia) Assessment/Plan: Cont fenofibrate Code(s): E78.5 - HYPERLIPIDEMIA, UNSPECIFIED (7) HTN (hypertension) Assessment/Plan: Cont metoprolol BP stable Code(s): I10 - ESSENTIAL (PRIMARY) HYPERTENSION Qualifiers: Hypertension type: essential hypertension Qualified Code(s): I10 - Essential (primary) hypertension (8) Hypothyroidism Assessment/Plan: Cont levothyroxine Code(s): E03.9 - HYPOTHYROIDISM, UNSPECIFIED Qualifiers: Hypothyroidism type: acquired Qualified Code(s): E03.9 - Hypothyroidism, unspecified (9) Depression with anxiety Assessment/Plan: Cont valium/lexapro Code(s): F41.8 - OTHER SPECIFIED ANXIETY DISORDERS (10) Status post Anthony's procedure Code(s): Z93.3 - COLOSTOMY STATUS
[2018-08-19] MEDS: ONDANSETRON 4 MG TABLET PO PRN (06:27)
[2018-08-19] MEDS: LEVOTHYROXINE NA 50 MCG TABLET (FP) PO SCH (06:27)
[2018-08-19 09:14] VITALS: BP 138/79; PULSE 85; TEMP 98.4
[2018-08-19] MEDS ORDERED: PT OWN MED DRAWER 7, Y5N ONE (09:17)
[2018-08-19] MEDS: diazePAM 5 MG TABLET PO SCH (09:33)
[2018-08-19] MEDS: MAGNESIUM OXIDE 400 MG TABLET (FP) PO SCH ×2 (09:33→09:39)
[2018-08-19] MEDS: SERTRALINE HCL 50 MG TABLET (FP) PO SCH (09:33)
[2018-08-19] MEDS: FENOFIBRIC ACID 135 MG CAP PO SCH (09:33)
[2018-08-19] MEDS: PANTOPRAZOLE 40 MG TABLET (FP) PO SCH (09:33)
[2018-08-19] MEDS: CALCIUM 250MG/VIT-D 125 UNITS 1 COMBO TABLET PO SCH (09:34)
[2018-08-19] MEDS: metoPROLOL SUCCINATE 25 MG TAB.SR.24H (FP) PO SCH (09:34)
[2018-08-19] MEDS: SUCRALFATE 1 GM/10 ML UNIT DOSE CUPS PO SCH (09:34)
[2018-08-19] MEDS: ARTIFICIAL TEARS (POLYVINYL ALCOHOL) OPTH DROPS OD SCH (09:39)
== END 2018-08-19 11:55 | disposition home health service (06) | DRG 683 ==
LOC: JER 09:28 → JERBED 15:27 → J5S 19:13
PROVIDERS: ADMIT Internal Medicine; ATTEND Internal Medicine
DX: N17.9 Acute kidney failure, unspecified (principal); E87.2 Acidosis; K56.609 Unspecified intestinal obstruction, unspecified as to partial versus complete obstruction; E03.9 Hypothyroidism, unspecified; E78.5 Hyperlipidemia, unspecified; K21.9 Gastro-esophageal reflux disease without esophagitis; Z95.1 Presence of aortocoronary bypass graft; Z90.49 Acquired absence of other specified parts of digestive tract; R10.10 Upper abdominal pain, unspecified; Z93.3 Colostomy status; E87.5 Hyperkalemia; I25.10 Atherosclerotic heart disease of native coronary artery without angina pectoris; Z87.891 Personal history of nicotine dependence; F41.8 Other specified anxiety disorders; E86.0 Dehydration; E27.9 Disorder of adrenal gland, unspecified; K57.30 Diverticulosis of large intestine without perforation or abscess without bleeding; D63.8 Anemia in other chronic diseases classified elsewhere; I12.9 Hypertensive chronic kidney disease with stage 1 through stage 4 chronic kidney disease, or unspecified chronic kidney disease; N18.9 Chronic kidney disease, unspecified; D50.0 Iron deficiency anemia secondary to blood loss (chronic)
CPT/HCPCS: 36415; 71045-TC-FY; 74176-TC; 76775-TC; 80048; 80053; 81003; 82150; 82436; 82550; 82565; 82728; 82784; 82962; 83010; 83540; 83550; 83605; 83615; 83690; 83735; 83883; 84100; 84133; 84155; 84165; 84300; 84436; 84443; 84484; 85025; 85044; 85610; 86140; 86850; 86900; 86901; 87040; 87045; 87046; 87086; 87186; 87205; 87324; 87449; 93005; 93010; 97116-GP; 97161-GP; 99285-25; J0131; J1644; J1756; J7030; Q0162

== ENCOUNTER 2019-03-23 11:47 | Inpatient (IN) | payer OTHER ==
[2019-03-23 12:27] VITALS: BMI 31.8
[2019-03-23] MEDS ORDERED: ERTAPENEM SODIUM 1 GM VIAL ONE (12:55)
[2019-03-23] MEDS ORDERED: ALVIMOPAN 12 MG CAP PO ONE ×3 (12:56→20:55)
[2019-03-23] MEDS ORDERED: fentaNYL CITRATE 250 MCG/5 ML VIAL ONE ×3 (13:51→21:45)
[2019-03-23] MEDS ORDERED: PROPOFOL 20 ML ONE (13:51)
[2019-03-23] MEDS ORDERED: LIDOCAINE HCL/PF 2% SDV 5ML VIAL ONE (13:51)
[2019-03-23] MEDS ORDERED: MIDAZOLAM HCL 2 MG/2 ML SINGLE DOSE VIAL ONE ×3 (14:26→20:25)
[2019-03-23] MEDS ORDERED: DEXAMETHASONE SOD PHOSPHATE 4 MG/1 ML VIAL ONE (14:27)
[2019-03-23] MEDS ORDERED: ROCURONIUM BROMIDE 50 MG/5 ML SYRINGE ONE ×2 (15:03→19:51)
[2019-03-23] MEDS ORDERED: ERTAPENEM SODIUM 1 GM VIAL IVPB ONE (15:05)
[2019-03-23] MEDS ORDERED: HYDROmorphone HCl 2 MG/ML VIAL ONE (15:48)
[2019-03-23] MEDS ORDERED: EPHEDRINE SULFATE/0.9% NACL/PF 50 MG/10 ML SYRINGE NR ONE ×2 (16:36→19:07)
[2019-03-23 18:45] LABS: ALLENS TEST POSITIVE; ARTERIAL BLD GAS O2 SATURATION 98.3 % (95-98); ARTERIAL BLOOD GAS BASE EXCESS -6.4 meq/l (-2-2); ARTERIAL BLOOD GAS PCO2 45.6 mmHg (35-45); ARTERIAL BLOOD GAS PO2 155 mmHg (80-100); ARTERIAL BLOOD GAS pH 7.26 (7.35-7.45)
[2019-03-23] MEDS ORDERED: BENZOIN/ALOE VERA/STORAX/TOLU 58 ML BOTTLE ONE (20:15)
--- NOTE | 2019-03-23 20:41 | OP ---
Operative Note - Note: Operative Date: 03/23/19 Pre-Operative Diagnosis: Colon CA, diverticulosis, s/p leigh's, parastomal hernia Operation: exploratory laparotomy, lysis of Adhesions, right hemicolectomy with primary anastomosis, closure of colostomy,with colo-rectal anastomosis, repair of parastomal hernia and creation of loop eliostomy Findings: extensive adhesions and cecal tumor, diverticulosis Post-Operative Diagnosis: Same as Pre-op Surgeon: Be Parada Anesthesiologist/STOGIE PACKER: Kaity Corona Anesthesia: General Specimens Removed: right colon , stoma site and hernia sac Estimated Blood Loss (mls): 250 Drains & Tubes with Location: ROGE Blood Volume Replaced (mls): 2 Operative Report Dictated: Yes
[2019-03-23] MEDS ORDERED: ONDANSETRON 4 MG/2 ML VIAL IVPUSH PRN ×2 (20:45→21:16)
[2019-03-23] MEDS ORDERED: ERTAPENEM SODIUM 1 GM in SODIUM CHLORIDE 50 ML IVPB ONE (20:55)
--- NOTE | 2019-03-23 20:56 | CONSULT ---
Consultation: REQUESTING PROVIDER: Dr. 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 EBL 250 ml, patient received 2 units pRBCs intra-op. ROGE drain placed. REVIEW OF SYSTEMS: Unable to assess secondary to patient being asleep on the vent. PHYSICAL EXAMINATION Vital Signs - 24 hr 03/23/19 03/23/19 12:22 12:35 Temperature 98.8 F Pulse Rate 81 Respiratory 20 Rate Blood Pressure 126/68 O2 Sat by Pulse 98 Oximetry (%) GENERAL: on ventilator, no acute distress. HEAD: Normal with no signs of trauma. EYES: Sclera anicteric, conjunctiva clear. LUNGS: On ventilator. Breath sounds equal, clear to auscultation bilaterally. No wheezes, and no crackles. No accessory muscle use. HEART: Regular rate and rhythm, normal S1 and S2 without murmur, rub or gallop. ABDOMEN: Soft, nontender, not distended, no bowel sounds. Ileostomy in place in RLQ, bandage dressing over surgical site. ROGE drain in place with serosanguinous fluid. MUSCULOSKELETAL: No bony deformities or tenderness UPPER EXTREMITIES: 2+ pulses, warm, well-perfused. No cyanosis. No clubbing. Cap refill <2 seconds. No peripheral edema. LOWER EXTREMITIES: 2+ pulses, warm, well-perfused. No calf tenderness. No peripheral edema. NEUROLOGICAL: Limited by being on the ventilator. PSYCHIATRIC: Unable to assess. SKIN: Warm, dry. Laboratory Results - last 24 hr 03/23/19 03/23/19 14:20 18:19 Anticoagulation Therapy No Result Required. Puncture Site No Result Required. ABG pH 7.26 L ABG pCO2 at Pt Temp 45.6 H ABG pO2 at Pt Temp 155 H ABG HCO3 19.8 L ABG O2 Sat (Measured) 98.3 H ABG O2 Content 12.6 ABG Base Excess -6.4 L Sam Test Positive O2 Delivery Device No Result Required. Oxygen Flow Rate Yes Vent Mode No Result Required. Vent Rate No Result Required. Mechanical Rate No Result Required. Pressure Support Vent No Result Required. Blood Type A NEGATIVE Antibody Screen Negative Crossmatch See Detail Active Medications Generic Name Dose Route Start Last Admin Trade Name Freq PRN Reason Stop Dose Admin Fentanyl 50 mcg 03/23/19 20:45 Sublimaze Injection - IVPUSH [id number] PRN PAIN-PACU ORDER X 4 DOSES ONLY Fentanyl 500 mcg/ Dextrose 100 mls @ 35.74 mls/hr 03/23/19 21:00 IVPB 03/24/19 20:59 TITR MARY JANE Protocol 2 MCG/KG/HR Propofol 1,000,000 mcg in 100 mls @ 2.681 mls/hr 03/23/19 21:00 Diprivan - IVPB TITR MARY JANE Protocol 5 MCG/KG/MIN Ondansetron HCl 4 mg 03/23/19 20:45 Zofran Injection IVPUSH Q6H PRN NAUSEA AND/OR VOMITING ASSESSMENT/PLAN: Neuro: - hx anxiety/depression - home meds: sertraline 50mg daily, diazepam 5mg daily, zolpidem 10mg QHS - no acute issues - ctm CV: - hx HTN, CAD s/p quadruple bypass surgery - home meds: amlodipine 5mg daily, aspirin 81mg daily, metoprolol 25 mg QHS - ctm Respiratory: - on ventilator at TV 600, RR 12, 40% FiO2 - fentanyl/propofol drips - home meds: Atrovent - ctm GI: - hx GERD - hx diverticulitis w/ multiple abscesses s/p Anthony procedure on 04/03/2018 - POD #0 from exploratory laparotomy, lysis of adhesions, 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, closure of colostomy with colorectal anastomosis, repair of parastomal hernia and creation of loop ileostomy - home meds: pantoprazole 40mg BID, Zofran ODT 4mg QID PRN, 325 mg ferrous sulfate, esomeprazole 40mg daily - ROGE drain in place, draining small amounts of serosanguinous fluid - ileostomy in place - continue IV versions of home meds - ctm Renal: - pre-op ABG: pH 7.26, pCO2 45.6, HCO3 19.8 - Mg 1.5 - giving 1g mag sulfate - f/u AM recheck - replete lytes PRN - ctm Endo: - hx hypothyroidism, HLD - home med: levothyroxine 25 mcg daily - continue IV versions of home meds - ctm Heme/Onc: - pre-op Hgb 8.7 - WBC 14.8 - transfused 2 units pRBCs intra-op - f/u AM CBC - ctm ID: - given ertapenem 1g intra-op - planned for 48 hours course of ertapenem - ctm PPX: - SCDs - Lovenox 30mg BID FENLTD: - on LR @ 83 ccs/hr - replete lytes PRN - A-line in place in LUE - ROGE drain in place - NPO Dispo: We will continue to follow the patient. Thank you for this consultative opportunity. Visit type - Emergency Visit Emergency Visit: Yes ED Registration Date: 03/23/19 Care time: The patient presented to the Emergency Department on the above date and was hospitalized for further evaluation of their emergent condition. - New Patient This patient is new to me today: Yes Date on this admission: 03/23/19 - Critical Care Critical Care patient: Yes Total Critical Care Time (in minutes): 45 Critical Care Statement: The care of this patient involved high complexity decision making to prevent further life threatening deterioration of the patient's condition and/or to evaluate & treat vital organ system(s) failure or risk of failure. ATTENDING PHYSICIAN STATEMENT I saw and evaluated the patient. I reviewed the resident's note and discussed the case with the resident. I agree with the resident's findings and plan as documented. SUBJECTIVE: OBJECTIVE: ASSESSMENT AND PLAN:
[2019-03-23] MEDS ORDERED: LACTATED RINGERS SOLUTION 1,000 ML/1,000 ML INFUS.BAG IV SCH (21:00)
[2019-03-23] MEDS ORDERED: FENTANYL INJECTION 500 MCG in DEXTROSE 5%-WATER - 90 ML IVPB SCH (21:00)
[2019-03-23] MEDS ORDERED: METOPROLOL TARTRATE 5 MG/5 ML VIAL IVPUSH PRN (21:14)
[2019-03-23 21:28] LABS: BASO % 0.3 % (0-2.0); HEMATOCRIT 27.5 % (32.4-45.2); HEMOGLOBIN 8.7 GM/dL (10.7-15.3); MCH 26.8 pg (25.7-33.7); MCHC 31.6 g/dl (32.0-36.0); MEAN CELL VOLUME 84.9 fl (80-96); MEAN PLT VOLUME 7.9 fl (7.5-11.1); MONO % 8.1 % (3.8-10.2); NEUT % 88.6 % (42.8-82.8); PLATELET COUNT 225 K/MM3 (134-434); RBC 3.23 M/mm3 (3.60-5.2); RDW 15.3 % (11.6-15.6); WHITE BLOOD COUNT 14.8 K/mm3 (4.0-10.0)
--- NOTE | 2019-03-23 21:34 | SURG ---
Surgery Lay Out Worker Note Lay Out Worker: Kaity Corona PA-C Date of Service: 03/23/19 Diagnosis: Colon CA, diverticulosis, s/p leigh's, parastomal hernia Procedure: exploratory laparotomy, lysis of Adhesions, right hemicolectomy with primary anastomosis, closure of colostomy,with colo-rectal anastomosis, repair of parastomal hernia and creation of loop eliostomy I was present for the entirety of the operative procedure. For further detail, please refer to operative report. Visit type - Case Type Case Type: Scheduled - Emergency Emergency Visit: No - New patient This patient is new to me today: Yes Date on this admission: 03/23/19
[2019-03-23] MEDS: PROPOFOL 1,000,000 MCG/100 ML VIAL IVPB SCH (21:35)
[2019-03-23] MEDS: CHLORHEXIDINE GLUCONATE 4% CLEANSER FOR DECOLONIZATION TP SCH (21:45)
[2019-03-23] MEDS ORDERED: MAGNESIUM SULF 50% (8.12 MEQ/2 ML-1 GM VIAL) IVPB ONE (22:14)
[2019-03-23] MEDS: MUPIROCIN 2% TOPICAL OINTMENT FOR DECOLONIZATION NS SCH (23:30)
[2019-03-24] MEDS ORDERED: ONDANSETRON 4 MG/2 ML VIAL IVPUSH PRN (01:00)
[2019-03-24] MEDS ORDERED: PT OWN MED DRAWER 7, Y5N ONE ×3 (05:57→15:31)
[2019-03-24] MEDS: LEVOTHYROXINE SODIUM 100 MCG VIAL IVPUSH SCH (06:24)
[2019-03-24 06:51] LABS: HEMATOCRIT 22.4 % (32.4-45.2); HEMOGLOBIN 7.3 GM/dL (10.7-15.3); MCH 27.1 pg (25.7-33.7); MCHC 32.4 g/dl (32.0-36.0); MEAN CELL VOLUME 83.7 fl (80-96); MEAN PLT VOLUME 8.4 fl (7.5-11.1); PLATELET COUNT 196 K/MM3 (134-434); RBC 2.68 M/mm3 (3.60-5.2); RDW 15.4 % (11.6-15.6); WHITE BLOOD COUNT 17.3 K/mm3 (4.0-10.0)
[2019-03-24] MEDS: PROPOFOL 1,000,000 MCG/100 ML VIAL IVPB SCH (07:47)
[2019-03-24 07:55] LABS: ALBUMIN 2.1 g/dl (3.4-5.0); BILIRUBIN,TOTAL 0.2 mg/dL (0.2-1); BLOOD UREA NITROGEN 21.6 mg/dL (7-18); CREATININE 1.6 mg/dL (0.55-1.3); POTASSIUM 5.8 mmol/L (3.5-5.1)
[2019-03-24] MEDS ORDERED: FENTANYL INJECTION 500 MCG in DEXTROSE 5%-WATER - 90 ML IVPB SCH (08:00)
--- NOTE | 2019-03-24 08:17 | PN ---
Progress Note (short form) - Note Progress Note: Post op day#1.S/P Hemicolectomy with loop iliostomy under GA uneventful.P108,BP 11/79 and Spo2 99 on O2 40%.Patient on the vent but will be extubated soon.Patient stable.No any anesthesia related problem.Patient DC from the anesthesia care.
[2019-03-24 08:43] LABS: MAGNESIUM 1.7 mg/dL (1.8-2.4); PHOSPHOROUS 3.5 mg/dL (2.5-4.9)
[2019-03-24] MEDS ORDERED: ACETAMINOPHEN 1000 MG/100 ML VIAL (NON FORMULARY) IVPB ONE (09:00)
--- NOTE | 2019-03-24 09:37 | PN ---
Progress Note (short form) - Note Progress Note: POD #1 Pt remained intubated overnight. Vital Signs Period Temp Pulse Resp BP Sys/Andrews Pulse Ox Last 24 Hr 98.0 F-100.2 F 81-104 12-20 103-141/37-97 98-100 ROGE: 40 ml serosangrenous Ileostomy: bilious outpt ml kevin: 200ml GEN: Intubated, awakes with stimulation ABD: midline incision changed, no purulent drainage from the wound or previous ostomy. Ostomy with intact fascia. Ileotomy viable with bilious outpt LE: SCDs in place and working CBC, BMP 03/24/19 05:15 03/24/19 05:15 A/p: 78 yo female s/p right hemicolectomy/hartmans reversal/Lysis of adhesions and ileostomy Hopefully the patient may wean to extubation today. If extubated may remove OG tube. She should remain npo. Local wound care competed today with iodoform packing. DVT ppx with lovenox SQ BID, SCDs D/w Dr. Jensen and pt to have invanc x1 today Monitor H&H daily and transfuse as needed.
[2019-03-24] MEDS: ENOXAPARIN NA (PORCINE) 30 MG/0.3 ML DISP.SYRIN SQ SCH ×2 (10:57→15:07)
[2019-03-24] MEDS: MUPIROCIN 2% TOPICAL OINTMENT FOR DECOLONIZATION NS SCH ×2 (10:57→21:40)
[2019-03-24] MEDS: PANTOPRAZOLE SODIUM 40 MG VIAL IVPUSH SCH (10:58)
[2019-03-24] MEDS ORDERED: SODIUM CHLORIDE 1,000 ML IV SCH (11:30)
--- NOTE | 2019-03-24 12:07 | PN ---
Teaching Attending Note Name of Resident: Urvashi Yung ATTENDING PHYSICIAN STATEMENT I saw and evaluated the patient. I reviewed the resident's note and discussed the case with the resident. I agree with the resident's findings and plan as documented. SUBJECTIVE: Pt seen and examined in the ICU. Intubated, awake. Placed on CPAP/PS with good RSBI, subsequently extubated during rounds. Receiving PRBC transfusion. OBJECTIVE: Vital Signs Period Temp Pulse Resp BP Sys/Andrews Pulse Ox Last 24 Hr 98.0 F-100.2 F 81-105 12-20 103-141/37-97 95-100 Intake & Output 03/21/19 03/22/19 03/23/19 03/24/19 23:59 23:59 23:59 23:59 Intake Total 4200 1038 Output Total 950 200 Balance 3250 838 Weight 89.358 kg Gen: extubated Heart: RRR Lung: decreased breath sounds at the bases Abd: soft, dressings clean, +ostomy pink, +ROGE with serosanguinous fluid Ext: no edema CBC, BMP 03/24/19 05:15 03/24/19 05:15 Active Medications Alvimopan (Entereg Capsule (Restricted) -) 12 mg PO BID [facility] Chlorhexidine Gluconate (Hibiclens For Decolonization -) 1 applic TP HS [facility] Last Admin: 03/23/19 21:45 Dose: 1 applic Enoxaparin Sodium (Lovenox -) 30 mg SQ BID [facility] Fentanyl (Sublimaze Injection -) 50 mcg IVPUSH [id number] PRN PRN Reason: PAIN-PACU ORDER X 4 DOSES ONLY Last Admin: 03/23/19 21:40 Dose: 50 mcg Ertapenem 1 gm/ Sodium (Chloride) 50 mls @ 100 mls/hr IVPB ONCE ONE Stop: 03/24/19 15:29 Sodium Chloride (Normal Saline -) 1,000 mls @ 100 mls/hr IV ASDIR [facility] Last Admin: 03/24/19 11:37 Dose: 100 mls/hr Levothyroxine Sodium (Synthroid Injection -) 12.5 mcg IVPUSH DAILY@0700 [facility] Last Admin: 03/24/19 06:24 Dose: 12.5 mcg Magnesium Sulfate (Magnesium Sulfate) 2 gm IVPB ONCE ONE Stop: 03/24/19 12:16 Metoprolol Tartrate (Lopressor Injection -) 5 mg IVPUSH Q6H [facility] Morphine Sulfate (Morphine Sulfate) 2 mg IVPUSH Q4H PRN PRN Reason: PAIN LEVEL 6-10 Mupirocin (Bactroban Ointment (For Decolonization) -) 1 applic NS BID [facility] Stop: 03/28/19 21:59 Last Admin: 03/24/19 10:57 Dose: 1 applic Ondansetron HCl (Zofran Injection) 4 mg IVPUSH Q6H PRN PRN Reason: NAUSEA Pantoprazole Sodium (Protonix Iv) 40 mg IVPUSH DAILY [facility] Last Admin: 03/24/19 10:58 Dose: 40 mg ASSESSMENT AND PLAN: Diverticulitis s/p Bess's 04/2018 s/p ex-lap/SOPHIE/right hemicolectomy with primary anastamosis/colostomy closure with colo-rectal anastamosis/cecal tumor resection/loop ileostomy POD #1 Acute Blood Loss Anemia CAD s/p CABG HTN Hyperlipidemia Hypothyroidism CKD Anxiety/Depression - pt extubated - pain control - incentive spirometry - on empiric antibiotics - monitor drain, ostomy output - IVF - monitor urine output, creatinine - monitor lytes - NPO - monitor H/H - transfuse as needed - continue ICU monitoring for now
[2019-03-24] MEDS ORDERED: MAGNESIUM SULF 50% (8.12 MEQ/2 ML-1 GM VIAL) IVPB ONE (12:15)
[2019-03-24] MEDS: METOPROLOL TARTRATE 5 MG/5 ML VIAL IVPUSH SCH ×2 (12:46→18:08)
--- NOTE | 2019-03-24 12:51 | HP ---
Admitting History and Physical - Past Medical History Cardiovascular: Yes: CAD (s/p 4 vessel CABG in 2016), HTN, Hyperlipdemia Hepatobiliary: Yes: Cholelithiasis Renal/: Yes: Renal Failure Psych: Yes: Anxiety, Depression, Other Endocrine: Yes: Hypothyroidism - Past Surgical History Past Surgical History: Yes: CABG ([address] [facility] 2016), Colectomy (s/p partial colectomy ( 16cm) of rectosgmoid with colosotomy creation 04/03/18 Dr. 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 History of Recent Travel: No Home Medications - Allergies Allergies/Adverse Reactions: Allergies Allergy/AdvReac Type Severity Reaction Status Date / Time Fish Containing Products Allergy Unknown Itching Verified 08/11/18 16:25 - Home Medications Home Medications: Ambulatory Orders Ondansetron [Zofran *Odt*] 4 mg SL QID PRN 08/09/18 Sertraline HCl [Zoloft -] 50 mg PO DAILY 08/09/18 Zolpidem Tartrate [Ambien] 10 mg PO HS 08/09/18 Metoprolol Succinate [Toprol Xl] 25 mg PO DAILY #30 tab.er.24h 08/18/18 Pantoprazole Sodium [Protonix -] 40 mg PO BID #60 tablet.ec 08/18/18 Amlodipine Besylate [Norvasc -] 5 mg PO DAILY 03/23/19 Aspirin [Aspirin EC] 81 mg PO DAILY 03/23/19 Diazepam [Valium] 5 mg PO DAILY MDD 2 tabs 03/23/19 Esomeprazole Magnesium 40 mg PO DAILY 03/23/19 Ferrous Sulfate [Feosol] 325 mg PO DAILY 03/23/19 Ipratropium Calvin [Atrovent Hfa] 17 mcg IH PRN 03/23/19 Levothyroxine [Synthroid -] 25 mcg PO DAILY 03/23/19 Metoprolol Succinate [Toprol Xl] 25 mg PO HS 03/23/19 Multivitamin [One-Daily Multi-Vitamin] 1 each PO DAILY 03/23/19 Physical Examination Vital Signs: Vital Signs Temperature 99.3 F 03/24/19 12:00 Pulse Rate 110 H 03/24/19 12:46 Respiratory Rate 18 03/24/19 12:00 Blood Pressure 140/66 03/24/19 12:46 O2 Sat by Pulse Oximetry (%) 95 03/24/19 11:52 Labs: CBC, BMP 03/24/19 05:15 03/24/19 05:15
--- NOTE | 2019-03-24 14:14 | PN ---
Physical Exam: SUBJECTIVE: Patient seen and examined. Pt is extubated and awake. satting well on venture mask. complains of pain 7-8/10. OBJECTIVE: Vital Signs Period Temp Pulse Resp BP Sys/Andrews Pulse Ox Last 24 Hr 98.0 F-100.2 F 82-110 12-18 103-141/37-97 95-100 GENERAL: The patient is awake, alert, and fully oriented, in mild distress. HEAD: Normal with no signs of trauma. ENT: oropharynx clear without exudates, moist mucous membranes. NECK: Trachea midline, full range of motion, supple. LUNGS: Breath sounds equal, clear to auscultation bilaterally decreased breath sounds at the bases, no wheezes, no crackles, no accessory muscle use. HEART: Regular rate and rhythm, S1, S2 without murmur, rub or gallop. ABDOMEN: Soft, nontender, mildly distended with ileostomy with bilious drainage and surgical sites with cleaned dressing, decreased bowel sounds, no guarding, no rebound, no hepatosplenomegaly, no masses. EXTREMITIES: 2+ pulses, warm, well-perfused, no edema. PSYCH: Normal mood, normal affect. SKIN: Warm, dry, surgical sites with clean dressing and ROGE drain with bloody output. and ileostomy with bilious output Laboratory Results - last 24 hr 03/23/19 03/23/19 03/23/19 14:20 18:19 21:15 WBC 14.8 H RBC 3.23 L Hgb 8.7 L Hct 27.5 L MCV 84.9 MCH 26.8 MCHC 31.6 L RDW 15.3 D Plt Count 225 D MPV 7.9 Absolute Neuts (auto) 13.1 H Neutrophils % 88.6 H D Lymphocytes % 3.0 L D Monocytes % 8.1 Eosinophils % 0.0 D Basophils % 0.3 Nucleated RBC % 0 PTT (Actin FS) Anticoagulation Therapy No Result Required. Puncture Site No Result Required. ABG pH 7.26 L ABG pCO2 at Pt Temp 45.6 H ABG pO2 at Pt Temp 155 H ABG HCO3 19.8 L ABG O2 Sat (Measured) 98.3 H ABG O2 Content 12.6 ABG Base Excess -6.4 L Sam Test Positive O2 Delivery Device No Result Required. Oxygen Flow Rate Yes Vent Mode No Result Required. Vent Rate No Result Required. Mechanical Rate No Result Required. Pressure Support Vent No Result Required. Sodium Potassium Chloride Carbon Dioxide Anion Gap BUN Creatinine Est GFR (CKD-EPI)AfAm Est GFR (CKD-EPI)NonAf Random Glucose Calcium Phosphorus Magnesium Total Bilirubin AST ALT Alkaline Phosphatase Total Protein Albumin Blood Type A NEGATIVE Antibody Screen Negative Crossmatch See Detail 03/23/19 03/23/19 03/24/19 21:15 21:50 05:15 WBC 17.3 H RBC 2.68 L Hgb 7.3 L Hct 22.4 L D MCV 83.7 MCH 27.1 MCHC 32.4 RDW 15.4 Plt Count 196 MPV 8.4 Absolute Neuts (auto) Neutrophils % Lymphocytes % Monocytes % Eosinophils % Basophils % Nucleated RBC % PTT (Actin FS) 26.2 Anticoagulation Therapy Puncture Site ABG pH ABG pCO2 at Pt Temp ABG pO2 at Pt Temp ABG HCO3 ABG O2 Sat (Measured) ABG O2 Content ABG Base Excess Sam Test O2 Delivery Device Oxygen Flow Rate Vent Mode Vent Rate Mechanical Rate Pressure Support Vent Sodium Potassium Chloride Carbon Dioxide Anion Gap BUN Creatinine Est GFR (CKD-EPI)AfAm Est GFR (CKD-EPI)NonAf Random Glucose Calcium Phosphorus Magnesium 1.5 L Total Bilirubin AST ALT Alkaline Phosphatase Total Protein Albumin Blood Type Antibody Screen Crossmatch 03/24/19 05:15 WBC RBC Hgb Hct MCV MCH MCHC RDW Plt Count MPV Absolute Neuts (auto) Neutrophils % Lymphocytes % Monocytes % Eosinophils % Basophils % Nucleated RBC % PTT (Actin FS) Anticoagulation Therapy Puncture Site ABG pH ABG pCO2 at Pt Temp ABG pO2 at Pt Temp ABG HCO3 ABG O2 Sat (Measured) ABG O2 Content ABG Base Excess Sam Test O2 Delivery Device Oxygen Flow Rate Vent Mode Vent Rate Mechanical Rate Pressure Support Vent Sodium 139 Potassium 5.8 H Chloride 114 H Carbon Dioxide 20 L Anion Gap 5 L BUN 21.6 H Creatinine 1.6 H Est GFR (CKD-EPI)AfAm 35.90 Est GFR (CKD-EPI)NonAf 30.98 Random Glucose 139 H Calcium 7.0 L Phosphorus 3.5 Magnesium 1.7 L Total Bilirubin 0.2 AST 46 H ALT 28 Alkaline Phosphatase 55 Total Protein 5.0 L Albumin 2.1 L Blood Type Antibody Screen Crossmatch Active Medications Generic Name Dose Route Start Last Admin Trade Name Freq PRN Reason Stop Dose Admin Alvimopan 12 mg 03/24/19 10:00 Entereg Capsule (Restricted) - PO BID [facility] Chlorhexidine Gluconate 1 applic 03/23/19 22:00 03/23/19 21:45 Hibiclens For Decolonization - TP 1 applic HS MARY JANE Administration Enoxaparin Sodium 30 mg 03/24/19 10:00 Lovenox - SQ BID MARY JANE Fentanyl 50 mcg 03/23/19 20:45 03/23/19 21:40 Sublimaze Injection - IVPUSH 50 mcg [id number] PRN Administration PAIN-PACU ORDER X 4 DOSES ONLY Ertapenem 1 gm/ Sodium 50 mls @ 100 mls/hr 03/24/19 15:00 Chloride IVPB 03/24/19 15:29 ONCE ONE Sodium Chloride 1,000 mls @ 100 mls/hr 03/24/19 11:30 03/24/19 11:37 Normal Saline - IV 100 mls/hr ASDIR MARY JANE Administration Levothyroxine Sodium 12.5 mcg 03/24/19 07:00 03/24/19 06:24 Synthroid Injection - IVPUSH 12.5 mcg DAILY@0700 MARY JANE Administration Metoprolol Tartrate 5 mg 03/24/19 12:00 03/24/19 12:46 Lopressor Injection - IVPUSH 5 mg Q6H MARY JANE Administration Morphine Sulfate 2 mg 03/24/19 11:53 Morphine Sulfate IVPUSH Q4H PRN PAIN LEVEL 6-10 Mupirocin 1 applic 03/23/19 22:00 03/24/19 10:57 Bactroban Ointment (For Decolonization) - NS 03/28/19 21:59 1 applic BID MARY JANE Administration Ondansetron HCl 4 mg 03/24/19 01:00 Zofran Injection IVPUSH Q6H PRN NAUSEA Pantoprazole Sodium 40 mg 03/24/19 10:00 03/24/19 10:58 Protonix Iv IVPUSH 40 mg DAILY MARY JANE Administration ASSESSMENT/PLAN: 78 yo F PMH diverticulitis w/ multiple abscesses s/p Anthony procedure on 04/03/2018, CAD s/p quadruple cardiac bypass, HTN, HLD, hypothyroidism, GERD, anxiety/depression, currently POD #0 s/p exploratory laparotomy, lysis of adhesions, 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 Neuro: - AOOx3 - hx anxiety/depression - home meds: sertraline 50mg daily, diazepam 5mg daily, zolpidem 10mg QHS - no acute issues - monitor -pain control with morphine 2mg Q4h and tylenol IV CV: - tachy in 101, BP stable in the 130/80s - hx HTN, CAD s/p quadruple bypass surgery - home meds held: amlodipine 5mg daily, aspirin 81mg daily, metoprolol 25 mg QHS - lopressor 5mg Q6h Respiratory: - extubated and on venture max - d/c'ed fentanyl/propofol drips - home meds: Atrovent - monitor GI: - hx GERD - hx diverticulitis w/ multiple abscesses s/p Anthony procedure on 04/03/2018 - POD #0 from exploratory laparotomy, lysis of adhesions, 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, closure of colostomy with colorectal anastomosis, repair of parastomal hernia and creation of loop ileostomy - home meds: pantoprazole 40mg BID, Zofran ODT 4mg QID PRN, 325 mg ferrous sulfate, esomeprazole 40mg daily - ROGE drain in place, draining small amounts of serosanguinous fluid initial then more sanquinous - ileostomy in place with bilious drainage - continue IV versions of home meds - monitor Renal: - Cr 1.6 around baseline - Mg 1.5 -> 1.7 - K 5.8 - giving NS@100cc/h - giving 1g mag sulfate post op then another 2 gm after repeat bmp - f/u AM recheck - replete lytes PRN Endo: - hx hypothyroidism, HLD - home med: levothyroxine 25 mcg daily - continue IV versions of home meds - f/u TSH level Heme/Onc: - pre-op Hgb 8.7-> 7.3 - transfused 2 units pRBCs intra-op - transfused 1 unit in the ICU -f/u post transfusion CBC - f/u AM CBC ID: - given ertapenem 1g intra-op - getting a second dose at 14:00 pm - for 48 hours course of ertapenem - monitor CBC PPX: - SCDs - in the setting of dropped Hb will hold lovenox for 24 hrs FENLTD: - on NS 100cc/hr - replete lytes PRN - ROGE drain in place - NPO Dispo: We will continue to follow the patient. Thank you for this consultative opportunity. Visit type - Emergency Visit Emergency Visit: Yes ED Registration Date: 03/23/19 Care time: The patient presented to the Emergency Department on the above date and was hospitalized for further evaluation of their emergent condition. - New Patient This patient is new to me today: No - Critical Care Critical Care patient: Yes Total Critical Care Time (in minutes): 36 Critical Care Statement: The care of this patient involved high complexity decision making to prevent further life threatening deterioration of the patient's condition and/or to evaluate & treat vital organ system(s) failure or risk of failure. ATTENDING PHYSICIAN STATEMENT I saw and evaluated the patient. I reviewed the resident's note and discussed the case with the resident. I agree with the resident's findings and plan as documented. SUBJECTIVE: OBJECTIVE: ASSESSMENT AND PLAN:
--- NOTE | 2019-03-24 14:49 | CONSULT ---
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 I was called to evaluate her for ckd and hyperkalemia. She remains in the ICU. SHe remains intubated. She is unable to give history. Spoke to medical team and family. - History Source History Provided By: Family Member - Past Medical History Cardio/Vascular: Yes: CAD (s/p 4 vessel CABG in 2016), HTN, Hyperlipdemia Hepatobiliary: Yes: Cholelithiasis Renal/: Yes: Renal Failure Psych: Yes: Anxiety, Depression, Other Endocrine: Yes: Hypothyroidism - Past Surgical History Past Surgical History: Yes: CABG (4 vessel CABG at [facility] 2015), Colectomy (s/p partial colectomy ( 16cm) of rectosgmoid with colosotomy creation 04/03/18 Dr. 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 History of Recent Travel: No Home Medications - Allergies Allergies/Adverse Reactions: Allergies Allergy/AdvReac Type Severity Reaction Status Date / Time Fish Containing Products Allergy Unknown Itching Verified 08/11/18 16:25 - Home Medications Home Medications: Ambulatory Orders Ondansetron [Zofran *Odt*] 4 mg SL QID PRN 08/09/18 Sertraline HCl [Zoloft -] 50 mg PO DAILY 08/09/18 Zolpidem Tartrate [Ambien] 10 mg PO HS 08/09/18 Metoprolol Succinate [Toprol Xl] 25 mg PO DAILY #30 tab.er.24h 08/18/18 Pantoprazole Sodium [Protonix -] 40 mg PO BID #60 tablet.ec 08/18/18 Amlodipine Besylate [Norvasc -] 5 mg PO DAILY 03/23/19 Aspirin [Aspirin EC] 81 mg PO DAILY 03/23/19 Diazepam [Valium] 5 mg PO DAILY MDD 2 tabs 03/23/19 Esomeprazole Magnesium 40 mg PO DAILY 03/23/19 Ferrous Sulfate [Feosol] 325 mg PO DAILY 03/23/19 Ipratropium [place] [Atrovent Hfa] 17 mcg IH PRN 03/23/19 Levothyroxine [Synthroid -] 25 mcg PO DAILY 03/23/19 Metoprolol Succinate [Toprol Xl] 25 mg PO HS 03/23/19 Multivitamin [One-Daily Multi-Vitamin] 1 each PO DAILY 03/23/19 Family Medical History Family History: Denies Review of Systems Unable to obtain ROS, reason: pt sedated Physical Exam Vital Signs: Vital Signs Temperature 99.3 F 03/24/19 12:00 Pulse Rate 110 H 03/24/19 12:46 Respiratory Rate 18 03/24/19 12:00 Blood Pressure 140/66 03/24/19 12:46 O2 Sat by Pulse Oximetry (%) 95 03/24/19 11:52 Constitutional: Yes: Calm Eyes: Yes: Conjunctiva Clear Neck: Yes: Supple Cardiovascular: Yes: S1, S2 Respiratory: Yes: Mechanically Ventilated Gastrointestinal: Yes: Other (dressing in place, colostomy) Renal/: Yes: [place] Present Musculoskeletal: Yes: Muscle Weakness Edema: No Neurological: Yes: Other (awake) Labs: CBC, BMP 03/24/19 05:15 03/24/19 05:15 Laboratory Tests 03/24/19 03/24/19 05:15 05:15 WBC 17.3 H Hgb 7.3 L Sodium 139 Potassium 5.8 H Carbon Dioxide 20 L BUN 21.6 H Creatinine 1.6 H Magnesium 1.7 L Imaging - Results Chest X-ray: Report Reviewed Assessment/Plan Current Medications Generic Name Dose Route Start Last Admin Trade Name Freq PRN Reason Stop Dose Admin Alvimopan 12 mg 03/24/19 10:00 Entereg Capsule (Restricted) - PO BID MARY JANE Chlorhexidine Gluconate 1 applic 03/23/19 22:00 03/23/19 21:45 Hibiclens For Decolonization - TP 1 applic HS MARY JANE Administration Enoxaparin Sodium 30 mg 03/24/19 10:00 Lovenox - SQ BID MARY JANE Fentanyl 50 mcg 03/23/19 20:45 03/23/19 21:40 Sublimaze Injection - IVPUSH 50 mcg [id number] PRN Administration PAIN-PACU ORDER X 4 DOSES ONLY Ertapenem 1 gm/ Sodium 50 mls @ 100 mls/hr 03/24/19 15:00 Chloride IVPB 03/24/19 15:29 ONCE ONE Sodium Chloride 1,000 mls @ 100 mls/hr 03/24/19 11:30 03/24/19 11:37 Normal Saline - IV 100 mls/hr ASDIR MARY JANE Administration Levothyroxine Sodium 12.5 mcg 03/24/19 07:00 03/24/19 06:24 Synthroid Injection - IVPUSH 12.5 mcg DAILY@0700 MARY JANE Administration Metoprolol Tartrate 5 mg 03/24/19 12:00 03/24/19 12:46 Lopressor Injection - IVPUSH 5 mg Q6H MARY JANE Administration Morphine Sulfate 2 mg 03/24/19 11:53 Morphine Sulfate IVPUSH Q4H PRN PAIN LEVEL 6-10 Mupirocin 1 applic 03/23/19 22:00 03/24/19 10:57 Bactroban Ointment (For Decolonization) - NS 03/28/19 21:59 1 applic BID MARY JANE Administration Ondansetron HCl 4 mg 03/24/19 01:00 Zofran Injection IVPUSH Q6H PRN NAUSEA Pantoprazole Sodium 40 mg 03/24/19 10:00 03/24/19 10:58 Protonix Iv IVPUSH 40 mg DAILY MARY JANE Administration Impression 1. CKD 2. hyperkalemia 3. abdominal pain 4. hx of perforated diverticula 5. acidosis 6. hld 7. CAD 8. HTN 9. anxiety 10. 1.3 cm left adrenal nodule 11. 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 hx elevated light chains Plan - flauids changed to ns - monitor bp - vent support - discussed with medical team - pt npo for now - renal function not far from baseline
[2019-03-24] MEDS ORDERED: ERTAPENEM SODIUM 1 GM in SODIUM CHLORIDE 50 ML IVPB SCH (15:00)
[2019-03-24] MEDS ORDERED: ERTAPENEM SODIUM 1 GM in SODIUM CHLORIDE 50 ML IVPB ONE (15:00)
[2019-03-24] MEDS: ALVIMOPAN 12 MG CAP PO SCH ×2 (17:25→21:38)
[2019-03-24 18:56] LABS: BASO % 0.6 % (0-2.0); HEMATOCRIT 26.9 % (32.4-45.2); HEMOGLOBIN 8.7 GM/dL (10.7-15.3); LYMPH % 10.9 % (8-40); MCH 27.4 pg (25.7-33.7); MCHC 32.5 g/dl (32.0-36.0); MEAN CELL VOLUME 84.3 fl (80-96); MEAN PLT VOLUME 8.4 fl (7.5-11.1); MONO % 9.5 % (3.8-10.2); PLATELET COUNT 203 K/MM3 (134-434); RBC 3.19 M/mm3 (3.60-5.2); RDW 15.1 % (11.6-15.6); WHITE BLOOD COUNT 17.5 K/mm3 (4.0-10.0)
[2019-03-24 19:35] LABS: ALBUMIN 2.5 g/dl (3.4-5.0); BILIRUBIN,TOTAL 0.3 mg/dL (0.2-1); BLOOD UREA NITROGEN 22.1 mg/dL (7-18); CALCIUM 7.6 mg/dL (8.5-10.1); CREATININE 1.7 mg/dL (0.55-1.3); POTASSIUM 5.2 mmol/L (3.5-5.1); TOT PROT 5.7 g/dl (6.4-8.2)
[2019-03-24] MEDS ORDERED: SODIUM CHLORIDE 0.45% 1,000 ML IV SCH (20:00)
[2019-03-24] MEDS: CHLORHEXIDINE GLUCONATE 4% CLEANSER FOR DECOLONIZATION TP SCH (21:38)
[2019-03-24] MEDS: MORPHINE SULFATE 2 MG/ML VIAL IVPUSH PRN (21:39)
[2019-03-24] MEDS ORDERED: MORPHINE SULFATE 2 MG/ML VIAL IVPUSH ONE (22:28)
[2019-03-25] MEDS: METOPROLOL TARTRATE 5 MG/5 ML VIAL IVPUSH SCH ×5 (02:11→23:26)
[2019-03-25] MEDS ORDERED: PT OWN MED DRAWER 7, Y5N ONE ×3 (03:46→19:44)
[2019-03-25 06:36] LABS: BASO % 0.1 % (0-2.0); EOS % 0.2 % (0-4.5); HEMATOCRIT 27.9 % (32.4-45.2); HEMOGLOBIN 9.1 GM/dL (10.7-15.3); LYMPH % 10.9 % (8-40); MCH 27.5 pg (25.7-33.7); MCHC 32.6 g/dl (32.0-36.0); MEAN CELL VOLUME 84.5 fl (80-96); MEAN PLT VOLUME 7.8 fl (7.5-11.1); MONO % 8.7 % (3.8-10.2); NEUT % 80.1 % (42.8-82.8); PLATELET COUNT 189 K/MM3 (134-434); WHITE BLOOD COUNT 17.1 K/mm3 (4.0-10.0)
[2019-03-25] MEDS: LEVOTHYROXINE SODIUM 100 MCG VIAL IVPUSH SCH (06:47)
[2019-03-25 07:18] LABS: ALBUMIN 2.5 g/dl (3.4-5.0); BILIRUBIN,TOTAL 0.4 mg/dL (0.2-1); BLOOD UREA NITROGEN 18.4 mg/dL (7-18); CALCIUM 7.9 mg/dL (8.5-10.1); CREATININE 1.4 mg/dL (0.55-1.3); MAGNESIUM 2.2 mg/dL (1.8-2.4); PHOSPHOROUS 3.7 mg/dL (2.5-4.9); POTASSIUM 5.4 mmol/L (3.5-5.1); TOT PROT 5.8 g/dl (6.4-8.2)
[2019-03-25] MEDS ORDERED: SODIUM CHLORIDE 0.45% 1,000 ML IV SCH ×3 (07:50→15:09)
[2019-03-25] MEDS ORDERED: ALBUTEROL SO4 0.083% IH SOL 2.5 MG/3 ML VIAL.NEB. NEB ONE (08:22)
--- NOTE | 2019-03-25 08:52 | PN ---
Progress Note, Physician History of Present Illness: s/p r hemicolectomy, closure of colostomy and ventral hernia repair feeling well reports being hungry - Current Medication List Current Medications: Active Medications Alvimopan (Entereg Capsule (Restricted) -) 12 mg PO BID [facility] Stop: 03/30/19 22:01 Last Admin: 03/24/19 21:38 Dose: Not Given Amlodipine Besylate (Norvasc -) 5 mg PO DAILY [facility] Aspirin (Ecotrin -) 81 mg PO DAILY [facility] Chlorhexidine Gluconate (Hibiclens For Decolonization -) 1 applic TP HS [facility] Last Admin: 03/24/19 21:38 Dose: 1 applic Diazepam (Valium -) 5 mg PO DAILY [facility] Enoxaparin Sodium (Lovenox -) 30 mg SQ BID [facility] Last Admin: 03/24/19 15:07 Dose: Not Given Fentanyl (Sublimaze Injection -) 50 mcg IVPUSH [id number] PRN PRN Reason: PAIN-PACU ORDER X 4 DOSES ONLY Last Admin: 03/23/19 21:40 Dose: 50 mcg Sodium Chloride (1/2 Normal Saline) 1,000 mls @ 125 mls/hr IV ASDIR [facility] Last Admin: 03/25/19 08:03 Dose: 125 mls/hr Levothyroxine Sodium (Synthroid Injection -) 12.5 mcg IVPUSH DAILY@0700 [facility] Last Admin: 03/25/19 06:47 Dose: 12.5 mcg Metoprolol Tartrate (Lopressor Injection -) 5 mg IVPUSH Q6H [facility] Last Admin: 03/25/19 06:48 Dose: 5 mg Morphine Sulfate (Morphine Sulfate) 2 mg IVPUSH Q4H PRN PRN Reason: PAIN LEVEL 6-10 Last Admin: 03/24/19 21:39 Dose: 2 mg Mupirocin (Bactroban Ointment (For Decolonization) -) 1 applic NS BID [facility] Stop: 03/28/19 21:59 Last Admin: 03/24/19 21:40 Dose: 1 applic Ondansetron HCl (Zofran Injection) 4 mg IVPUSH Q6H PRN PRN Reason: NAUSEA Pantoprazole Sodium (Protonix Iv) 40 mg IVPUSH DAILY [facility] Last Admin: 03/24/19 10:58 Dose: 40 mg Sertraline HCl (Zoloft -) 50 mg PO DAILY MARY JANE - Objective Vital Signs: Vital Signs Temperature 99.2 F 03/25/19 03:00 Pulse Rate 102 H 03/25/19 06:48 Respiratory Rate 20 03/25/19 05:00 Blood Pressure 160/77 03/25/19 06:48 O2 Sat by Pulse Oximetry (%) 95 03/24/19 20:46 Gastrointestinal: Yes: Other (incision clean and dry tomas serosanguinous) Labs: CBC, BMP 03/25/19 06:08 03/25/19 06:08 Problem List - Problems (1) Status post Anthony's procedure Code(s): Z93.3 - COLOSTOMY STATUS Assessment/Plan 78 yr old female s/p right hemicolectomy, closure of left colostomy and ventral hernia repair. POD2 doing well. dc ngt dc kevin oob clear liquids
[2019-03-25] MEDS: MUPIROCIN 2% TOPICAL OINTMENT FOR DECOLONIZATION NS SCH ×2 (10:47→23:27)
[2019-03-25] MEDS: ASPIRIN COATED 81 MG TABLET.EC PO SCH (10:48)
[2019-03-25] MEDS: ALVIMOPAN 12 MG CAP PO SCH ×2 (10:49→22:38)
[2019-03-25] MEDS: PANTOPRAZOLE SODIUM 40 MG VIAL IVPUSH SCH (10:50)
[2019-03-25] MEDS: amLODIPine BESYLATE 5 MG TABLET (FP) PO SCH (10:50)
[2019-03-25] MEDS: SERTRALINE HCL 50 MG TABLET (FP) PO SCH (10:51)
[2019-03-25] MEDS: diazePAM 5 MG TABLET PO SCH (10:51)
--- NOTE | 2019-03-25 11:28 | PN ---
Physical Exam: SUBJECTIVE: Patient seen and examined. Pt complained of being hungry and thirsty otherwise no event overnight. OBJECTIVE: Vital Signs Period Temp Pulse Resp BP Sys/Andrews Pulse Ox Last 24 Hr 98.1 F-99.4 F 98-114 12-20 128-186/66-116 95-98 GENERAL: The patient is awake, alert, and fully oriented, in no distress. HEAD: Normal with no signs of trauma. ENT: oropharynx clear without exudates, moist mucous membranes. NECK: Trachea midline, full range of motion, supple. LUNGS: Breath sounds equal, clear to auscultation bilaterally decreased breath sounds at the bases, no wheezes, no crackles, no accessory muscle use. HEART: Regular rate and rhythm, S1, S2 without murmur, rub or gallop. ABDOMEN: Soft, nontender, mildly distended with ileostomy with bilious drainage and surgical sites with cleaned dressing, decreased bowel sounds, no guarding, no rebound, no hepatosplenomegaly, no masses. EXTREMITIES: 2+ pulses, warm, well-perfused, no edema. PSYCH: Normal mood, normal affect. SKIN: Warm, dry, surgical sites with clean dressing and ROGE drain with serosanguinous output. and ileostomy with bilious output Laboratory Results - last 24 hr 03/23/19 03/24/19 03/24/19 14:20 16:00 16:00 WBC 17.5 H RBC 3.19 L Hgb 8.7 L Hct 26.9 L D MCV 84.3 MCH 27.4 MCHC 32.5 RDW 15.1 Plt Count 203 MPV 8.4 Absolute Neuts (auto) 13.8 H Neutrophils % 79.0 Lymphocytes % 10.9 D Monocytes % 9.5 Eosinophils % 0.0 Basophils % 0.6 Nucleated RBC % 0 Sodium 142 Potassium 5.2 H Chloride 113 H Carbon Dioxide 21 Anion Gap 9 BUN 22.1 H Creatinine 1.7 H Est GFR (CKD-EPI)AfAm 33.37 Est GFR (CKD-EPI)NonAf 28.79 Random Glucose 102 Calcium 7.6 L Phosphorus Magnesium Total Bilirubin 0.3 AST 67 H ALT 33 Alkaline Phosphatase 62 Total Protein 5.7 L Albumin 2.5 L TSH Crossmatch See Detail 03/25/19 03/25/19 06:08 06:08 WBC 17.1 H RBC 3.30 L Hgb 9.1 L Hct 27.9 L MCV 84.5 MCH 27.5 MCHC 32.6 RDW 15.0 Plt Count 189 MPV 7.8 Absolute Neuts (auto) 13.7 H Neutrophils % 80.1 Lymphocytes % 10.9 Monocytes % 8.7 Eosinophils % 0.2 D Basophils % 0.1 Nucleated RBC % 0 Sodium 139 Potassium 5.4 H Chloride 111 H Carbon Dioxide 23 Anion Gap 5 L BUN 18.4 H Creatinine 1.4 H Est GFR (CKD-EPI)AfAm 42.19 Est GFR (CKD-EPI)NonAf 36.41 Random Glucose 110 H Calcium 7.9 L Phosphorus 3.7 Magnesium 2.2 Total Bilirubin 0.4 AST 54 H ALT 30 Alkaline Phosphatase 63 Total Protein 5.8 L Albumin 2.5 L TSH 5.70 H Crossmatch Active Medications Generic Name Dose Route Start Last Admin Trade Name Freq PRN Reason Stop Dose Admin Alvimopan 12 mg 03/24/19 10:00 03/25/19 10:49 Entereg Capsule (Restricted) - PO 03/30/19 22:01 12 mg BID MARY JANE Administration Amlodipine Besylate 5 mg 03/25/19 10:00 03/25/19 10:50 Norvasc - PO 5 mg DAILY MARY JANE Administration Aspirin 81 mg 03/25/19 10:00 03/25/19 10:48 Ecotrin - PO 81 mg DAILY MARY JANE Administration Chlorhexidine Gluconate 1 applic 03/23/19 22:00 03/24/19 21:38 Hibiclens For Decolonization - TP 1 applic HS MARY JANE Administration Diazepam 5 mg 03/25/19 10:00 03/25/19 10:51 Valium - PO 5 mg DAILY MARY JANE Administration Enoxaparin Sodium 30 mg 03/24/19 10:00 03/24/19 15:07 Lovenox - SQ Not Given BID MARY JANE Fentanyl 50 mcg 03/23/19 20:45 03/23/19 21:40 Sublimaze Injection - IVPUSH 50 mcg [id number] PRN Administration PAIN-PACU ORDER X 4 DOSES ONLY Sodium Chloride 1,000 mls @ 125 mls/hr 03/25/19 07:50 03/25/19 08:03 1/2 Normal Saline IV 125 mls/hr ASDIR MARY JANE Administration Levothyroxine Sodium 12.5 mcg 03/24/19 07:00 03/25/19 06:47 Synthroid Injection - IVPUSH 12.5 mcg DAILY@0700 MARY JANE Administration Metoprolol Tartrate 5 mg 03/24/19 12:00 03/25/19 06:48 Lopressor Injection - IVPUSH 5 mg Q6H MARY JANE Administration Morphine Sulfate 2 mg 03/24/19 11:53 03/24/19 21:39 Morphine Sulfate IVPUSH 2 mg Q4H PRN Administration PAIN LEVEL 6-10 Mupirocin 1 applic 03/23/19 22:00 03/25/19 10:47 Bactroban Ointment (For Decolonization) - NS 03/28/19 21:59 1 applic BID MRAY JANE Administration Ondansetron HCl 4 mg 03/24/19 01:00 Zofran Injection IVPUSH Q6H PRN NAUSEA Pantoprazole Sodium 40 mg 03/24/19 10:00 03/25/19 10:50 Protonix Iv IVPUSH 40 mg DAILY MARY JANE Administration Sertraline HCl 50 mg 03/25/19 10:00 03/25/19 10:51 Zoloft - PO 50 mg DAILY MARY JANE Administration ASSESSMENT/PLAN: 78 yo F PMH diverticulitis w/ multiple abscesses s/p Anthony procedure on 2018, CAD s/p quadruple cardiac bypass, HTN, HLD, hypothyroidism, GERD, anxiety/ depression, currently POD #0 s/p exploratory laparotomy, lysis of adhesions, 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 Neuro: - AOOx3 - hx anxiety/depression - home meds: sertraline 50mg daily, diazepam 5mg daily, zolpidem 10mg QHS. Resumed today - no acute issues - monitor CV: - BP stable in the 130/80s - hx HTN, CAD s/p quadruple bypass surgery - home meds resumed : amlodipine 5mg daily, aspirin 81mg daily - lopressor 5mg Q6h - arterial line removed Respiratory: - extubated and on venture max - d/c'ed fentanyl/propofol drips - home meds: Atrovent - monitor GI: - hx GERD - hx diverticulitis w/ multiple abscesses s/p Anthony procedure on 04/03/2018 - POD #1 from exploratory laparotomy, lysis of adhesions, 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, closure of colostomy with colorectal anastomosis, repair of parastomal hernia and creation of loop ileostomy - home meds: pantoprazole 40mg BID, Zofran ODT 4mg QID PRN, 325 mg ferrous sulfate, esomeprazole 40mg daily - ROGE drain 20 cc last night, draining small amounts of serosanguinous fluid initial then more sanquinous - ileostomy in place with bilious drainage 50 cc last night - will resume PO GI meds - monitor Renal: - Cr 1.4 around baseline - Mg 1.5 -> 1.7-> 2.2 - K 5.8-> 5.4 - received albuterol once - f/u AM recheck - replete lytes PRN - kevin out Endo: - hx hypothyroidism, HLD - home med: levothyroxine 25 mcg daily - continue IV versions of home meds - TSH level 5.7 Heme/Onc: - pre-op Hgb 8.7-> 7.3 -> 8.7-> 9.1 - transfused 2 units pRBCs intra-op - transfused 1 unit in the ICU - f/u AM CBC - resumed ASA and lovenox 30 BID per Surgery ID: - given ertapenem 1g intra-op -received second dose at 14:00 pm yesterday - for 48 hours course of ertapenem - monitor CBC PPX: - SCDs - lovenox 30 BID FENLTD: - on 03/03 NS 83cc/hr for now - replete lytes PRN - ROGE drain in place - clear liquid diet Dispo: We will continue to follow the patient. Thank you for this consultative opportunity. Visit type - Emergency Visit Emergency Visit: Yes ED Registration Date: 03/23/19 Care time: The patient presented to the Emergency Department on the above date and was hospitalized for further evaluation of their emergent condition. - New Patient This patient is new to me today: No - Critical Care Critical Care patient: Yes Total Critical Care Time (in minutes): 36 Critical Care Statement: The care of this patient involved high complexity decision making to prevent further life threatening deterioration of the patient 's condition and/or to evaluate & treat vital organ system(s) failure or risk of failure. ATTENDING PHYSICIAN STATEMENT I saw and evaluated the patient. I reviewed the resident's note and discussed the case with the resident. I agree with the resident's findings and plan as documented. SUBJECTIVE: OBJECTIVE: ASSESSMENT AND PLAN:
--- NOTE | 2019-03-25 12:43 | CON.ID ---
Consult Consult Specialty:: infectious diseases Referred by:: Reason for Consultation:: leukocytosis,post op - History of Present Illness Chief Complaint: abd pain History of Present Illness: 78 yo F PMH diverticulitis w/ multiple abscesses s/p Anthony procedure on 2018, CAD s/p quadruple cardiac bypass, HTN, HLD, hypothyroidism, GERD, anxiety/ depression, currently POD #0 s/p exploratory laparotomy, lysis of adhesions, 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 patient c/o of pain patient in the icu,son in the room currently looks stable - History Source History Provided By: Patient, Family Member Limitations to Obtaining History: No Limitations - Past Medical History Cardio/Vascular: Yes: CAD (s/p 4 vessel CABG in 2015), HTN, Hyperlipdemia Hepatobiliary: Yes: Cholelithiasis Renal/: Yes: Renal Failure Psych: Yes: Anxiety, Depression, Other Endocrine: Yes: Hypothyroidism - Past Surgical History Past Surgical History: Yes: CABG (4 vessel CABG at [facility] 2015), Colectomy (s/p partial colectomy ( 16cm) of rectosgmoid with colosotomy creation 04/03/18 Dr. 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 History of Recent Travel: No Home Medications - Allergies Allergies/Adverse Reactions: Allergies Allergy/AdvReac Type Severity Reaction Status Date / Time Fish Containing Products Allergy Unknown Itching Verified 08/11/18 16:25 - Home Medications Home Medications: Ambulatory Orders RX: Ondansetron [Zofran *Odt*] 4 mg SL QID PRN 08/09/18 RX: Sertraline HCl [Zoloft -] 50 mg PO DAILY 08/09/18 RX: Zolpidem Tartrate [Ambien] 10 mg PO HS 08/09/18 RX: Metoprolol Succinate [Toprol Xl] 25 mg PO DAILY #30 tab.er.24h 08/18/18 RX: Pantoprazole Sodium [Protonix -] 40 mg PO BID #60 tablet.ec 08/18/18 Amlodipine Besylate [Norvasc -] 5 mg PO DAILY 03/23/19 Aspirin [Aspirin EC] 81 mg PO DAILY 03/23/19 Ferrous Sulfate [Feosol] 325 mg PO DAILY 03/23/19 Ipratropium [place] [Atrovent Hfa] 17 mcg IH PRN 03/23/19 Levothyroxine [Synthroid -] 25 mcg PO DAILY 03/23/19 Metoprolol Succinate [Toprol Xl] 25 mg PO HS 03/23/19 Multivitamin [One-Daily Multi-Vitamin] 1 each PO DAILY 03/23/19 RX: Diazepam [Valium] 5 mg PO DAILY MDD 2 tabs 03/23/19 RX: Esomeprazole Magnesium 40 mg PO DAILY 03/23/19 Review of Systems - Review of Systems Constitutional: reports: No Symptoms Eyes: reports: No Symptoms HENT: reports: No Symptoms Neck: reports: No Symptoms Cardiovascular: reports: No Symptoms Respiratory: reports: No Symptoms Gastrointestinal: reports: Abdominal Pain Integumentary: reports: No Symptoms Neurological: reports: No Symptoms Endocrine: reports: No Symptoms Hematology/Lymphatic: reports: No Symptoms Psychiatric: reports: No Symptoms Physical Exam Vital Signs: Vital Signs Temperature 98.1 F 03/25/19 10:00 Pulse Rate 100 H 03/25/19 12:00 Respiratory Rate 03/25/19 12:00 Blood Pressure 167/81 03/25/19 12:00 O2 Sat by Pulse Oximetry (%) 98 03/25/19 09:00 Constitutional: Yes: Well Nourished, Moderate Distress Eyes: Yes: Conjunctiva Clear HENT: Yes: Atraumatic, Normocephalic Neck: Yes: Supple, Trachea Midline Cardiovascular: Yes: Regular Rate and Rhythm Respiratory: Yes: Regular, CTA Bilaterally Gastrointestinal: Yes: Tenderness, Other (ileostomy) Musculoskeletal: Yes: WNL Extremities: Yes: WNL Neurological: Yes: Alert, Oriented Psychiatric: Yes: Alert, Oriented Labs: CBC, BMP 03/25/19 06:08 03/25/19 06:08 Imaging - Results Chest X-ray: Report Reviewed, Image Reviewed Assessment/Plan POD #2 s/p ex-lap/SOPHIE/right hemicolectomy with primary anastamosis/colostomy closure with colo-rectal anastamosis/cecal tumor resection/loop ileostomy Acute Blood Loss Anemia CAD s/p CABG HTN Hyperlipidemia Hypothyroidism CKD Anxiety/Depression Diverticulitis S/P Hartmans 04/2018 plan will start patient on zosyn monitor wbc rest as per icu and surgery hydration close watch cc 40 min
[2019-03-25] MEDS ORDERED: PIPERACILLIN/TAZOBACTAM 3.375 GM VIAL IVPB ONE ×3 (12:57→22:33)
[2019-03-25] MEDS ORDERED: DEXTROSE 5%-WATER - 50 ML IVPB ONE ×3 (12:58→22:34)
[2019-03-25] MEDS: PIPERACILLIN/TAZOB 3.375 GM 3.375 GM in DEXTROSE 5%-WATER - 50 ML IVPB SCH ×2 (13:00→18:18)
--- NOTE | 2019-03-25 13:05 | OP ---
DATE OF OPERATION: 03/24/2019 PREOPERATIVE DIAGNOSES: Status post Anthony procedure for perforated diverticulitis, right colon cancer, and a ventral hernia. POSTOPERATIVE DIAGNOSES: Status post Anthony procedure for perforated diverticulitis, right colon cancer, and a ventral hernia. PROCEDURE: Exploratory laparotomy, extensive lysis of adhesions, right hemicolectomy, closure of left-sided colostomy, repair of parastomal hernia. SURGEON: Be Parada MD ASSISTANTS: BECKY Jackson and BECKY Lawson BLEEDING: Approximately 200 mL. COMPLICATIONS: None. The patient tolerated the procedure well. INDICATIONS: This is a 78-year-old female who underwent a Anthony procedure approximately a year ago for perforated diverticulitis and sepsis. She recovered relatively well. In preparation for her closure of colostomy, she was found to have on colonoscopy a right colon mass, which was biopsied. She was then referred for surgical evaluation. Upon obtaining medical clearance, cardiology evaluation, was taken to the OR. Alternative treatment options here were discussed with the patient including performing just a right hemicolectomy and leaving the closure of the colostomy for a different time, performing both operations, and also plus/minus the creation of ileostomy, and she agreed to proceed with the latter. Risks and benefits were discussed of each alternative approach here. DESCRIPTION OF PROCEDURE: In the OR, she was placed in supine position. After administration of IV antibiotics, she received DVT prophylaxis. She was placed in lithotomy position. She was prepped and draped in the usual sterile fashion, and the operation was begun with a midline incision carried through the subcutaneous tissues to approximately 3 cm above the umbilicus. Peritoneal cavity was entered without difficulty, and the fascia was opened the full extent of the incision. A wound protector was positioned, and extensive lysis of adhesions took place at this time. That lasted for approximately 90 minutes of pure lysis of adhesions due to the extensive adhesions from the previous operation and previous multiple pelvic and intra-abdominal abscesses she had after perforated diverticulitis. Upon completing the dissection exposing the anatomy carefully then attention was directed towards the right colon. Mobilization of the right colon was performed with liberation of the terminal ileum, which was stuck in the pelvis. The white line of Toldt was taken down. The right colon mesentery was then from the majority of the fascia and from the duodenum. The middle colic vessel was identified as well as the ileocolic vessels. The ileocolic artery was then divided between 2 Carmelina clamps and was tied with 0 silk, doubly ligated. The mesentery was divided all the way to the edge of the terminal ileum where it was divided with Endo MARLON. The transverse colon was divided with an Endo MARLON as well, and an isoperistaltic [id number] anastomosis using stapler was performed using a MARLON, end-to-end common enterotomy closure with TA. The staple line was oversewn with a 3-0 silk Lembert suture in interrupted fashion using 3-0 silk popoffs. Following this then the mesenteric defect was closed using a 3-0 Vicryl suture in a running fashion. Next, once this part of the operation was completed, the pelvic dissection was then performed carefully and extensively in order to liberate the adjoining structures, particularly the cervix and bladder from the rectum. This required manipulation transanally of the rectum, which was with a probe in order to help identify properly and mobilize rectum from adhesions to the pelvic wall and to the posterior wall as well. Once this was done then the rectum was clearly visualized. At this point then, the colostomy was taken down by dividing it at the level of the peritoneum with a MARLON. The staple line was removed, and a 28 anvil was introduced, and this was then secured with a 2-0 PDS pursestring suture. Next, the anvil was then connected to the EEA apparatus, which had been introduced transanally, and the EEA was closed and activated in order to create the anastomosis. The EEA was removed. The donuts appeared to be intact and then the anastomosis was tested with air insufflation transanally. Showed no evidence of any bubbling and suggestive of a good anastomosis. Two sutures were placed in each corner in order to remove any potential tension; however, there was no tension. The splenic flexure was mobilized using cautery primarily to liberate the splenic flexure in order to completely release any potential for tension here. Once this was completed then a Paddy-Coyle drain was placed in the pelvis. Loop ileostomy was then brought out through a right lower quadrant incision, which was performed in a circular fashion. The fascia was then divided in a cruciate manner to allow 2 fingerbreadths to enter in a transrectal fashion, the rectus sheath and entering the peritoneal cavity. The loop of ileostomy was put out through that incision, and a bar was placed to keep it in position to the mesentery. At this point then the wound midline incision was then closed. Peritoneal cavity was irrigated and suctioned, and final check for hemostasis and foreign bodies was performed. The fascia was closed with No. 1 PDS double stranded in a running fashion from both ends and tied in the middle. The wound was approximated with a few loose cynthia, and it was packed in between, and a sterile dressing was applied. Next, attention was directed towards the segment of the colostomy, which had been left in place. This was then dissected out through the abdominal wall including the hernia sac using a cautery staying wide enough to include all of the hernia sac. The defect of the parastomal hernia was quite large, and the repair would not be in any way adequate given the size of it without a formal mesh repair, but given the current circumstances of major bowel surgery, mesh would not be advisable in this setting, and decision was made to do a primary repair, which was done with 0 Maxon in interrupted fashion. The sutures were placed and then tied to remove all tension, and repair appeared to be appropriate at this stage. Wound was, again, irrigated and suctioned and check for hemostasis done, and skin was approximated with a few sutures of vertical mattress of 3-0 nylon and then packed in the middle with iodoform gauze. The creation of the ileostomy was then done next. This was done by maturing the ileostomy, dividing the antimesenteric border of the terminal ileum and then suturing it to the skin edges creating a [place], and this was done with 3-0 Vicryl and 4-0 Vicryl. Upon careful creation of the ostomy then digital inspection was performed making sure there was a clean path and no obstruction. With this completed, then the ostomy appliance was applied. The patient then at this point returned to ICU intubated for postoperative care management. She tolerated procedure well. Had good urine output. No evidence of blood in the bladder or in the urine and no evidence of any significant bleeding from the Paddy-Coyle at this point. Nishant [id number]
--- NOTE | 2019-03-25 13:09 | PN ---
Teaching Attending Note Name of Resident: Urvashi Yung ATTENDING PHYSICIAN STATEMENT I saw and evaluated the patient. I reviewed the resident's note and discussed the case with the resident. I agree with the resident's findings and plan as documented. SUBJECTIVE: Patient seen and examined in the ICU. Awake and alert. Post-op discomfort but better than yesterday. Some sore throat that is improving. OBJECTIVE: Intake & Output 03/22/19 03/23/19 03/24/19 03/25/19 23:59 23:59 23:59 23:59 Intake Total 4200 1988 1000 Output Total 950 1490 1020 Balance 3250 498 -20 Weight 197 lb Last Vital Signs Temp Pulse Resp BP Pulse Ox 98.1 F 100 H 20 167/81 98 03/25/19 10:00 03/25/19 12:00 03/25/19 12:00 03/25/19 12:00 03/25/19 09:00 Active Medications Alvimopan (Entereg Capsule (Restricted) -) 12 mg PO BID [facility] Stop: 03/30/19 22:01 Last Admin: 03/25/19 10:49 Dose: 12 mg Amlodipine Besylate (Norvasc -) 5 mg PO DAILY [facility] Last Admin: 03/25/19 10:50 Dose: 5 mg Aspirin (Ecotrin -) 81 mg PO DAILY [facility] Last Admin: 03/25/19 10:48 Dose: 81 mg Chlorhexidine Gluconate (Hibiclens For Decolonization -) 1 applic TP HS [facility] Last Admin: 03/24/19 21:38 Dose: 1 applic Diazepam (Valium -) 5 mg PO DAILY [facility] Last Admin: 03/25/19 10:51 Dose: 5 mg Enoxaparin Sodium (Lovenox -) 30 mg SQ BID [facility] Last Admin: 03/24/19 15:07 Dose: Not Given Fentanyl (Sublimaze Injection -) 50 mcg IVPUSH [id number] PRN PRN Reason: PAIN-PACU ORDER X 4 DOSES ONLY Last Admin: 03/23/19 21:40 Dose: 50 mcg Sodium Chloride (1/2 Normal Saline) 1,000 mls @ 83 mls/hr IV ASDIR [facility] Last Admin: 03/25/19 12:00 Dose: 83 mls/hr Piperacillin Sod/Tazobactam (Sod 3.375 gm/ Dextrose) 50 mls @ 100 mls/hr IVPB Q8H-IV [facility]; Protocol Last Admin: 03/25/19 13:00 Dose: 100 mls/hr Levothyroxine Sodium (Synthroid Injection -) 12.5 mcg IVPUSH DAILY@0700 [facility] Last Admin: 03/25/19 06:47 Dose: 12.5 mcg Metoprolol Tartrate (Lopressor Injection -) 5 mg IVPUSH Q6H [facility] Last Admin: 03/25/19 06:48 Dose: 5 mg Morphine Sulfate (Morphine Sulfate) 2 mg IVPUSH Q4H PRN PRN Reason: PAIN LEVEL 6-10 Last Admin: 03/24/19 21:39 Dose: 2 mg Mupirocin (Bactroban Ointment (For Decolonization) -) 1 applic NS BID [facility] Stop: 03/28/19 21:59 Last Admin: 03/25/19 10:47 Dose: 1 applic Ondansetron HCl (Zofran Injection) 4 mg IVPUSH Q6H PRN PRN Reason: NAUSEA Pantoprazole Sodium (Protonix -) 40 mg PO BID [facility] Sertraline HCl (Zoloft -) 50 mg PO DAILY [facility] Last Admin: 03/25/19 10:51 Dose: 50 mg Zolpidem Tartrate (Ambien -) 10 mg PO HS PRN PRN Reason: INSOMNIA Gen: Awake and alert Heart: RRR Lung: decreased breath sounds at the bases Abd: soft, dressings clean, +ostomy pink, +ROGE with serosanguinous fluid Ext: no edema ASSESSMENT AND PLAN: POD #2 s/p ex-lap/SOPHIE/right hemicolectomy with primary anastamosis/colostomy closure with colo-rectal anastamosis/cecal tumor resection/loop ileostomy Acute Blood Loss Anemia CAD s/p CABG HTN Hyperlipidemia Hypothyroidism CKD Anxiety/Depression Diverticulitis S/P Hartmans 04/2018 - pain control - incentive spirometry - ABX - monitor drain, ostomy output - IVF - monitor urine output, creatinine - monitor lytes - PO per surgery - monitor H/H - Normal transfusion thresholds - Potential downgrade later today if remains stable / improved Dr Kim
--- NOTE | 2019-03-25 15:08 | PN ---
Progress Note, Physician History of Present Illness: Pt seen and examined at bedside. She is now extubated. She is now on clears. - Current Medication List Current Medications: Active Medications Alvimopan (Entereg Capsule (Restricted) -) 12 mg PO BID [facility] Stop: 03/30/19 22:01 Last Admin: 03/25/19 10:49 Dose: 12 mg Amlodipine Besylate (Norvasc -) 5 mg PO DAILY [facility] Last Admin: 03/25/19 10:50 Dose: 5 mg Aspirin (Ecotrin -) 81 mg PO DAILY [facility] Last Admin: 03/25/19 10:48 Dose: 81 mg Chlorhexidine Gluconate (Hibiclens For Decolonization -) 1 applic TP HS [facility] Last Admin: 03/24/19 21:38 Dose: 1 applic Diazepam (Valium -) 5 mg PO DAILY [facility] Last Admin: 03/25/19 10:51 Dose: 5 mg Enoxaparin Sodium (Lovenox -) 30 mg SQ BID [facility] Last Admin: 03/24/19 15:07 Dose: Not Given Fentanyl (Sublimaze Injection -) 50 mcg IVPUSH [id number] PRN PRN Reason: PAIN-PACU ORDER X 4 DOSES ONLY Last Admin: 03/23/19 21:40 Dose: 50 mcg Sodium Chloride (1/2 Normal Saline) 1,000 mls @ 83 mls/hr IV ASDIR [facility] Last Admin: 03/25/19 12:00 Dose: 83 mls/hr Piperacillin Sod/Tazobactam (Sod 3.375 gm/ Dextrose) 50 mls @ 100 mls/hr IVPB Q8H-IV [facility]; Protocol Last Admin: 03/25/19 13:00 Dose: 100 mls/hr Levothyroxine Sodium (Synthroid Injection -) 12.5 mcg IVPUSH DAILY@0700 [facility] Last Admin: 03/25/19 06:47 Dose: 12.5 mcg Metoprolol Tartrate (Lopressor Injection -) 5 mg IVPUSH Q6H [facility] Last Admin: 03/25/19 13:04 Dose: 5 mg Morphine Sulfate (Morphine Sulfate) 2 mg IVPUSH Q4H PRN PRN Reason: PAIN LEVEL 6-10 Last Admin: 03/24/19 21:39 Dose: 2 mg Mupirocin (Bactroban Ointment (For Decolonization) -) 1 applic NS BID [facility] Stop: 03/28/19 21:59 Last Admin: 03/25/19 10:47 Dose: 1 applic Ondansetron HCl (Zofran Injection) 4 mg IVPUSH Q6H PRN PRN Reason: NAUSEA Pantoprazole Sodium (Protonix -) 40 mg PO BID [facility] Sertraline HCl (Zoloft -) 50 mg PO DAILY [facility] Last Admin: 03/25/19 10:51 Dose: 50 mg Zolpidem Tartrate (Ambien -) 10 mg PO HS PRN PRN Reason: INSOMNIA - Objective Vital Signs: Vital Signs Temperature 98.1 F 03/25/19 10:00 Pulse Rate 102 H 03/25/19 13:04 Respiratory Rate 20 03/25/19 12:00 Blood Pressure 164/80 03/25/19 13:04 O2 Sat by Pulse Oximetry (%) 98 03/25/19 09:00 Constitutional: Yes: Calm Eyes: Yes: Conjunctiva Clear HENT: Yes: Atraumatic Cardiovascular: Yes: S1, S2 Respiratory: Yes: CTA Bilaterally Gastrointestinal: Yes: Other (dressing in place) Musculoskeletal: Yes: WNL Edema: No Neurological: Yes: Oriented Psychiatric: Yes: Oriented Labs: CBC, BMP 03/25/19 06:08 03/25/19 06:08 Assessment/Plan Current Medications Generic Name Dose Route Start Last Admin Trade Name Freq PRN Reason Stop Dose Admin Alvimopan 12 mg 03/24/19 10:00 03/25/19 10:49 Entereg Capsule (Restricted) - PO 03/30/19 22:01 12 mg BID [facility] Administration Amlodipine Besylate 5 mg 03/25/19 10:00 03/25/19 10:50 Norvasc - PO 5 mg DAILY [facility] Administration Aspirin 81 mg 03/25/19 10:00 03/25/19 10:48 Ecotrin - PO 81 mg DAILY [facility] Administration Chlorhexidine Gluconate 1 applic 03/23/19 22:00 03/24/19 21:38 Hibiclens For Decolonization - TP 1 applic HS [facility] Administration Diazepam 5 mg 03/25/19 10:00 03/25/19 10:51 Valium - PO 5 mg DAILY [facility] Administration Enoxaparin Sodium 30 mg 03/24/19 10:00 03/24/19 15:07 Lovenox - SQ Not Given BID [facility] Fentanyl 50 mcg 03/23/19 20:45 03/23/19 21:40 Sublimaze Injection - IVPUSH 50 mcg [id number] PRN Administration PAIN-PACU ORDER X 4 DOSES ONLY Sodium Chloride 1,000 mls @ 83 mls/hr 03/25/19 11:46 03/25/19 12:00 1/2 Normal Saline IV 83 mls/hr ASDIR [facility] Administration Piperacillin Sod/Tazobactam 50 mls @ 100 mls/hr 03/25/19 12:45 03/25/19 13:00 Sod 3.375 gm/ Dextrose IVPB 100 mls/hr Q8H-IV [facility] Administration Protocol Levothyroxine Sodium 12.5 mcg 03/24/19 07:00 03/25/19 06:47 Synthroid Injection - IVPUSH 12.5 mcg DAILY@0700 [facility] Administration Metoprolol Tartrate 5 mg 03/24/19 12:00 03/25/19 13:04 Lopressor Injection - IVPUSH 5 mg Q6H [facility] Administration Morphine Sulfate 2 mg 03/24/19 11:53 03/24/19 21:39 Morphine Sulfate IVPUSH 2 mg Q4H PRN Administration PAIN LEVEL 6-10 Mupirocin 1 applic 03/23/19 22:00 03/25/19 10:47 Bactroban Ointment (For Decolonization) - NS 03/28/19 21:59 1 applic BID [facility] Administration Ondansetron HCl 4 mg 03/24/19 01:00 Zofran Injection IVPUSH Q6H PRN NAUSEA Pantoprazole Sodium 40 mg 03/25/19 22:00 Protonix - PO BID [facility] Sertraline HCl 50 mg 03/25/19 10:00 03/25/19 10:51 Zoloft - PO 50 mg DAILY [facility] Administration Zolpidem Tartrate 10 mg 03/25/19 22:00 Ambien - PO HS PRN INSOMNIA Impression 1. CKD 2. hyperkalemia 3. abdominal pain 4. hx of perforated diverticula 5. acidosis 6. hld 7. CAD 8. HTN 9. anxiety 10. 1.3 cm left adrenal nodule 11. 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 hx elevated light chains Plan - cont fluids - increase rate - low potassium diet - will increase fluids and give a small dose of lasix to waste potassium - avoid agents that work on GI tract for now - renal function is improved
[2019-03-25] MEDS ORDERED: FUROSEMIDE 20 MG TABLET (FP) PO ONE (15:09)
[2019-03-25] MEDS: SODIUM CHLORIDE 0.45% 1,000 ML IV SCH ×2 (15:30→23:28)
[2019-03-25] MEDS: MORPHINE SULFATE 2 MG/ML VIAL IVPUSH PRN ×2 (16:19→19:47)
--- NOTE | 2019-03-25 21:33 | PN ---
Progress Note, Physician - Current Medication List Current Medications: Active Medications Alvimopan (Entereg Capsule (Restricted) -) 12 mg PO BID [facility] Stop: 03/30/19 22:01 Last Admin: 03/25/19 10:49 Dose: 12 mg Amlodipine Besylate (Norvasc -) 5 mg PO DAILY [facility] Last Admin: 03/25/19 10:50 Dose: 5 mg Aspirin (Ecotrin -) 81 mg PO DAILY [facility] Last Admin: 03/25/19 10:48 Dose: 81 mg Chlorhexidine Gluconate (Hibiclens For Decolonization -) 1 applic TP HS [facility] Last Admin: 03/24/19 21:38 Dose: 1 applic Diazepam (Valium -) 5 mg PO DAILY [facility] Last Admin: 03/25/19 10:51 Dose: 5 mg Enoxaparin Sodium (Lovenox -) 30 mg SQ BID [facility] Last Admin: 03/24/19 15:07 Dose: Not Given Fentanyl (Sublimaze Injection -) 50 mcg IVPUSH [id number] PRN PRN Reason: PAIN-PACU ORDER X 4 DOSES ONLY Last Admin: 03/23/19 21:40 Dose: 50 mcg Piperacillin Sod/Tazobactam (Sod 3.375 gm/ Dextrose) 50 mls @ 100 mls/hr IVPB Q8H-IV [facility]; Protocol Last Admin: 03/25/19 18:18 Dose: 100 mls/hr Sodium Chloride (1/2 Normal Saline) 1,000 mls @ 100 mls/hr IV ASDIR [facility] Last Admin: 03/25/19 15:30 Dose: 100 mls/hr Levothyroxine Sodium (Synthroid Injection -) 12.5 mcg IVPUSH DAILY@0700 [facility] Last Admin: 03/25/19 06:47 Dose: 12.5 mcg Metoprolol Tartrate (Lopressor Injection -) 5 mg IVPUSH Q6H [facility] Last Admin: 03/25/19 18:19 Dose: 5 mg Morphine Sulfate (Morphine Sulfate) 2 mg IVPUSH Q4H PRN PRN Reason: PAIN LEVEL 6-10 Last Admin: 03/25/19 19:47 Dose: 2 mg Mupirocin (Bactroban Ointment (For Decolonization) -) 1 applic NS BID [facility] Stop: 03/28/19 21:59 Last Admin: 03/25/19 10:47 Dose: 1 applic Ondansetron HCl (Zofran Injection) 4 mg IVPUSH Q6H PRN PRN Reason: NAUSEA Pantoprazole Sodium (Protonix -) 40 mg PO BID [facility] Sertraline HCl (Zoloft -) 50 mg PO DAILY [facility] Last Admin: 03/25/19 10:51 Dose: 50 mg Zolpidem Tartrate (Ambien -) 10 mg PO HS PRN PRN Reason: INSOMNIA - Objective Vital Signs: Vital Signs Temperature 99.2 F 03/25/19 18:32 Pulse Rate 100 H 03/25/19 18:19 Respiratory Rate 18 03/25/19 18:10 Blood Pressure 164/77 03/25/19 18:19 O2 Sat by Pulse Oximetry (%) 98 03/25/19 09:00 Labs: CBC, BMP 03/25/19 06:08 03/25/19 06:08
[2019-03-25] MEDS: ZOLPIDEM TARTRATE 5 MG TABLET PO PRN (22:36)
[2019-03-25] MEDS: ENOXAPARIN NA (PORCINE) 30 MG/0.3 ML DISP.SYRIN SQ SCH (22:37)
[2019-03-25] MEDS: CHLORHEXIDINE GLUCONATE 4% CLEANSER FOR DECOLONIZATION TP SCH (22:38)
[2019-03-25] MEDS: PANTOPRAZOLE 40 MG TABLET PO SCH (22:40)
[2019-03-26] MEDS: MORPHINE SULFATE 2 MG/ML VIAL IVPUSH PRN ×4 (02:58→22:07)
[2019-03-26] MEDS: PIPERACILLIN/TAZOB 3.375 GM 3.375 GM in DEXTROSE 5%-WATER - 50 ML IVPB SCH ×3 (03:01→17:24)
[2019-03-26] MEDS: METOPROLOL TARTRATE 5 MG/5 ML VIAL IVPUSH SCH ×3 (06:29→17:20)
[2019-03-26] MEDS: LEVOTHYROXINE SODIUM 100 MCG VIAL IVPUSH SCH (06:39)
[2019-03-26 07:24] LABS: BASO % 0.2 % (0-2.0); EOS % 0.5 % (0-4.5); HEMATOCRIT 25.9 % (32.4-45.2); HEMOGLOBIN 8.5 GM/dL (10.7-15.3); LYMPH % 12.8 % (8-40); MCH 27.7 pg (25.7-33.7); MCHC 32.7 g/dl (32.0-36.0); MEAN CELL VOLUME 84.8 fl (80-96); MEAN PLT VOLUME 8.2 fl (7.5-11.1); NEUT % 77.5 % (42.8-82.8); PLATELET COUNT 190 K/MM3 (134-434); RBC 3.05 M/mm3 (3.60-5.2); RDW 15.3 % (11.6-15.6)
[2019-03-26 07:37] LABS: ALBUMIN 2.4 g/dl (3.4-5.0); BILIRUBIN,TOTAL 0.6 mg/dL (0.2-1); BLOOD UREA NITROGEN 18.5 mg/dL (7-18); CALCIUM 7.8 mg/dL (8.5-10.1); CREATININE 1.4 mg/dL (0.55-1.3); MAGNESIUM 1.9 mg/dL (1.8-2.4); PHOSPHOROUS 3.7 mg/dL (2.5-4.9); POTASSIUM 4.7 mmol/L (3.5-5.1); TOT PROT 5.9 g/dl (6.4-8.2)
--- NOTE | 2019-03-26 08:27 | PN ---
Progress Note (short form) - Note Progress Note: RENAL Pt is awake and alert does not provide any complaints Last Vital Signs Temp Pulse Resp BP Pulse Ox 97.4 F L 99 H 18 144/74 98 03/26/19 02:00 03/26/19 06:29 03/26/19 06:00 03/26/19 06:29 03/25/19 21:00 lungs clear cvs s1s2 rr abd soft, has ostomy bag with stool ext +upper ext edema neuro a+o skin no lesions noted CBC, BMP 03/26/19 05:25 03/26/19 05:25 Current Medications Generic Name Dose Route Start Last Admin Trade Name Freq PRN Reason Stop Dose Admin Alvimopan 12 mg 03/24/19 10:00 03/25/19 22:38 Entereg Capsule (Restricted) - PO 03/30/19 22:01 12 mg BID [facility] Administration Amlodipine Besylate 5 mg 03/25/19 10:00 03/25/19 10:50 Norvasc - PO 5 mg DAILY [facility] Administration Aspirin 81 mg 03/25/19 10:00 03/25/19 10:48 Ecotrin - PO 81 mg DAILY [facility] Administration Chlorhexidine Gluconate 1 applic 03/23/19 22:00 03/25/19 22:38 Hibiclens For Decolonization - TP 1 applic HS [facility] Administration Diazepam 5 mg 03/25/19 10:00 03/25/19 10:51 Valium - PO 5 mg DAILY [facility] Administration Enoxaparin Sodium 30 mg 03/24/19 10:00 03/25/19 22:37 Lovenox - SQ 30 mg BID [facility] Administration Fentanyl 50 mcg 03/23/19 20:45 03/23/19 21:40 Sublimaze Injection - IVPUSH 50 mcg [id number] PRN Administration PAIN-PACU ORDER X 4 DOSES ONLY Piperacillin Sod/Tazobactam 50 mls @ 100 mls/hr 03/25/19 12:45 03/26/19 03:01 Sod 3.375 gm/ Dextrose IVPB 100 mls/hr Q8H-IV [facility] Administration Protocol Sodium Chloride 1,000 mls @ 100 mls/hr 03/25/19 15:10 03/25/19 23:28 1/2 Normal Saline IV 100 mls/hr ASDIR [facility] Administration Levothyroxine Sodium 12.5 mcg 03/24/19 07:00 03/26/19 06:39 Synthroid Injection - IVPUSH 12.5 mcg DAILY@0700 [facility] Administration Metoprolol Tartrate 5 mg 03/24/19 12:00 03/26/19 06:29 Lopressor Injection - IVPUSH 5 mg Q6H [facility] Administration Morphine Sulfate 2 mg 03/24/19 11:53 03/26/19 02:58 Morphine Sulfate IVPUSH 2 mg Q4H PRN Administration PAIN LEVEL 6-10 Mupirocin 1 applic 03/23/19 22:00 03/25/19 23:27 Bactroban Ointment (For Decolonization) - NS 03/28/19 21:59 1 applic BID [facility] Administration Ondansetron HCl 4 mg 03/24/19 01:00 Zofran Injection IVPUSH Q6H PRN NAUSEA Pantoprazole Sodium 40 mg 03/25/19 22:00 03/25/19 22:40 Protonix - PO 40 mg BID [facility] Administration Sertraline HCl 50 mg 03/25/19 10:00 03/25/19 10:51 Zoloft - PO 50 mg DAILY [facility] Administration Zolpidem Tartrate 10 mg 03/25/19 22:00 03/25/19 22:36 Ambien - PO 10 mg HS PRN Administration INSOMNIA Impression 1. CKD 2. hyperkalemia 3. abdominal pain 4. hx of perforated diverticula 5. acidosis resolved 6. hld 7. CAD 8. HTN 9. anxiety 10. 1.3 cm left adrenal nodule 11. 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 hx elevated light chains Plan low k diet avoid nephrotoxins and hypotension reduce fluids if able to eat obtain urine for ua protein and creat MV
[2019-03-26] MEDS ORDERED: PIPERACILLIN/TAZOBACTAM 3.375 GM VIAL IVPB ONE ×2 (08:42→16:23)
[2019-03-26] MEDS ORDERED: DEXTROSE 5%-WATER - 50 ML IVPB ONE ×2 (08:43→16:24)
[2019-03-26] MEDS: diazePAM 5 MG TABLET PO SCH (09:02)
[2019-03-26] MEDS: PANTOPRAZOLE 40 MG TABLET PO SCH ×2 (09:02→21:43)
[2019-03-26] MEDS: ENOXAPARIN NA (PORCINE) 30 MG/0.3 ML DISP.SYRIN SQ SCH ×2 (09:03→22:08)
[2019-03-26] MEDS: SERTRALINE HCL 50 MG TABLET (FP) PO SCH (09:03)
[2019-03-26] MEDS: MUPIROCIN 2% TOPICAL OINTMENT FOR DECOLONIZATION NS SCH ×2 (09:03→21:40)
[2019-03-26] MEDS: ASPIRIN COATED 81 MG TABLET.EC PO SCH (09:18)
[2019-03-26] MEDS: amLODIPine BESYLATE 5 MG TABLET (FP) PO SCH (09:19)
[2019-03-26] MEDS ORDERED: PT OWN MED DRAWER 7, Y5N ONE ×3 (09:20→21:26)
[2019-03-26] MEDS ORDERED: BENZOIN/ALOE VERA/STORAX/TOLU 58 ML BOTTLE ONE (11:40)
[2019-03-26] MEDS: ALVIMOPAN 12 MG CAP PO SCH ×2 (12:31→21:41)
--- NOTE | 2019-03-26 12:53 | PN ---
Progress Note, Physician History of Present Illness: stable no new issues pain clinically doing well - Current Medication List Current Medications: Active Medications Alvimopan (Entereg Capsule (Restricted) -) 12 mg PO BID [facility] Stop: 03/30/19 22:01 Last Admin: 03/26/19 12:31 Dose: 12 mg Amlodipine Besylate (Norvasc -) 5 mg PO DAILY [facility] Last Admin: 03/26/19 09:19 Dose: 5 mg Aspirin (Ecotrin -) 81 mg PO DAILY [facility] Last Admin: 03/26/19 09:18 Dose: 81 mg Chlorhexidine Gluconate (Hibiclens For Decolonization -) 1 applic TP HS [facility] Last Admin: 03/25/19 22:38 Dose: 1 applic Diazepam (Valium -) 5 mg PO DAILY [facility] Last Admin: 03/26/19 09:02 Dose: 5 mg Enoxaparin Sodium (Lovenox -) 30 mg SQ BID [facility] Last Admin: 03/26/19 09:03 Dose: 30 mg Fentanyl (Sublimaze Injection -) 50 mcg IVPUSH [id number] PRN PRN Reason: PAIN-PACU ORDER X 4 DOSES ONLY Last Admin: 03/23/19 21:40 Dose: 50 mcg Piperacillin Sod/Tazobactam (Sod 3.375 gm/ Dextrose) 50 mls @ 100 mls/hr IVPB Q8H-IV [facility]; Protocol Last Admin: 03/26/19 09:03 Dose: 100 mls/hr Sodium Chloride (1/2 Normal Saline) 1,000 mls @ 100 mls/hr IV ASDIR [facility] Last Admin: 03/25/19 23:28 Dose: 100 mls/hr Levothyroxine Sodium (Synthroid Injection -) 12.5 mcg IVPUSH DAILY@0700 [facility] Last Admin: 03/26/19 06:39 Dose: 12.5 mcg Metoprolol Tartrate (Lopressor Injection -) 5 mg IVPUSH Q6H [facility] Last Admin: 03/26/19 12:31 Dose: 5 mg Morphine Sulfate (Morphine Sulfate) 2 mg IVPUSH Q4H PRN PRN Reason: PAIN LEVEL 6-10 Last Admin: 03/26/19 02:58 Dose: 2 mg Mupirocin (Bactroban Ointment (For Decolonization) -) 1 applic NS BID [facility] Stop: 03/28/19 21:59 Last Admin: 03/26/19 09:03 Dose: 1 applic Ondansetron HCl (Zofran Injection) 4 mg IVPUSH Q6H PRN PRN Reason: NAUSEA Pantoprazole Sodium (Protonix -) 40 mg PO BID [facility] Last Admin: 03/26/19 09:02 Dose: 40 mg Sertraline HCl (Zoloft -) 50 mg PO DAILY [facility] Last Admin: 03/26/19 09:03 Dose: 50 mg Zolpidem Tartrate (Ambien -) 10 mg PO HS PRN PRN Reason: INSOMNIA Last Admin: 03/25/19 22:36 Dose: 10 mg - Objective Vital Signs: Vital Signs Temperature 97.4 F L 03/26/19 02:00 Pulse Rate 107 H 03/26/19 12:31 Respiratory Rate 19 03/26/19 10:27 Blood Pressure 145/72 03/26/19 12:31 O2 Sat by Pulse Oximetry (%) 98 03/26/19 09:00 Constitutional: Yes: Calm, Mild Distress Cardiovascular: Yes: S1, S2 Respiratory: Yes: Regular, CTA Bilaterally Gastrointestinal: Yes: Soft, Hypoactive Bowel Sounds, Other (colostomy) Musculoskeletal: Yes: WNL Extremities: Yes: WNL Neurological: Yes: Alert, Oriented Psychiatric: Yes: Alert, Oriented Labs: CBC, BMP 03/26/19 05:25 03/26/19 05:25 Assessment/Plan POD #2 s/p ex-lap/SOPHIE/right hemicolectomy with primary anastamosis/colostomy closure with colo-rectal anastamosis/cecal tumor resection/loop ileostomy Acute Blood Loss Anemia CAD s/p CABG HTN Hyperlipidemia Hypothyroidism CKD Anxiety/Depression Diverticulitis S/P Hartmans 04/2018 plan continue current gmmt rest as per the team liquids improving
[2019-03-26] MEDS: SODIUM CHLORIDE 0.45% 1,000 ML IV SCH (15:00)
--- NOTE | 2019-03-26 17:15 | PN ---
Progress Note (short form) - Note Progress Note: Pulm/CCM SUBJECTIVE: Patient seen and examined in the ICU. -pain controlled -no acute events -plan for Med/surg today OBJECTIVE: Vital Signs Temp 98.2 F 03/26/19 14:00 Pulse 82 03/26/19 14:00 Resp 18 03/26/19 14:00 BP 130/63 03/26/19 14:00 Pulse Ox 98 03/26/19 09:00 Intake & Output 03/25/19 03/26/19 03/26/19 23:59 11:59 23:59 Intake Total 1730 1360 Output Total 1160 1530 800 Balance 570 -170 -800 Weight 89.358 kg Intake: IV 700 1200 1/2 Normal Saline 1,020 926 6109 ml @ 100 mls/hr IV ASDIR [facility] Rx#:[id number] IVPB 200 100 Oral 480 60 Packed Cells 350 Output: Drainage 30 Abdomen 30 Urine 1000 1500 800 [place] 1000 1500 800 Ileostomy 160 Other: Voiding Method Diaper Diaper Bowel Movement No No Height 5 ft 6 in Body Mass Index (BMI) 31.8 Active Medications Alvimopan (Entereg Capsule (Restricted) -) 12 mg PO BID [facility] Stop: 03/30/19 22:01 Last Admin: 03/26/19 12:31 Dose: 12 mg Amlodipine Besylate (Norvasc -) 5 mg PO DAILY [facility] Last Admin: 03/26/19 09:19 Dose: 5 mg Aspirin (Ecotrin -) 81 mg PO DAILY [facility] Last Admin: 03/26/19 09:18 Dose: 81 mg Chlorhexidine Gluconate (Hibiclens For Decolonization -) 1 applic TP HS [facility] Last Admin: 03/25/19 22:38 Dose: 1 applic Diazepam (Valium -) 5 mg PO DAILY [facility] Last Admin: 03/26/19 09:02 Dose: 5 mg Enoxaparin Sodium (Lovenox -) 30 mg SQ BID [facility] Last Admin: 03/26/19 09:03 Dose: 30 mg Fentanyl (Sublimaze Injection -) 50 mcg IVPUSH [id number] PRN PRN Reason: PAIN-PACU ORDER X 4 DOSES ONLY Last Admin: 03/23/19 21:40 Dose: 50 mcg Piperacillin Sod/Tazobactam (Sod 3.375 gm/ Dextrose) 50 mls @ 100 mls/hr IVPB Q8H-IV [facility]; Protocol Last Admin: 03/26/19 09:03 Dose: 100 mls/hr Sodium Chloride (1/2 Normal Saline) 1,000 mls @ 100 mls/hr IV ASDIR [facility] Last Admin: 03/25/19 23:28 Dose: 100 mls/hr Levothyroxine Sodium (Synthroid Injection -) 12.5 mcg IVPUSH DAILY@0700 [facility] Last Admin: 03/26/19 06:39 Dose: 12.5 mcg Metoprolol Tartrate (Lopressor Injection -) 5 mg IVPUSH Q6H [facility] Last Admin: 03/26/19 12:31 Dose: 5 mg Morphine Sulfate (Morphine Sulfate) 2 mg IVPUSH Q4H PRN PRN Reason: PAIN LEVEL 6-10 Last Admin: 03/26/19 02:58 Dose: 2 mg Mupirocin (Bactroban Ointment (For Decolonization) -) 1 applic NS BID [facility] Stop: 03/28/19 21:59 Last Admin: 03/26/19 09:03 Dose: 1 applic Ondansetron HCl (Zofran Injection) 4 mg IVPUSH Q6H PRN PRN Reason: NAUSEA Pantoprazole Sodium (Protonix -) 40 mg PO BID [facility] Last Admin: 03/26/19 09:02 Dose: 40 mg Sertraline HCl (Zoloft -) 50 mg PO DAILY [facility] Last Admin: 03/26/19 09:03 Dose: 50 mg Zolpidem Tartrate (Ambien -) 10 mg PO HS PRN PRN Reason: INSOMNIA Last Admin: 03/25/19 22:36 Dose: 10 mg Gen: Awake and alert Heart: RRR Lung: diminished bases Abd: soft, dressings clean, +ostomy pink, +ROGE minimal output Ext: no edema neuro: non-focal, interactive with family, alert ASSESSMENT AND PLAN: POD #3 s/p ex-lap/SOPHIE/right hemicolectomy with primary anastamosis/colostomy closure with colo-rectal anastamosis/cecal tumor resection/loop ileostomy Acute Blood Loss Anemia CAD s/p CABG HTN Hyperlipidemia Hypothyroidism CKD Anxiety/Depression Diverticulitis S/P Hartmans 04/2018 - pain control - incentive spirometry - ABX - monitor drain, ostomy output - IVF - monitor urine output, creatinine - monitor lytes - PO per surgery - Ok for floor - OOB as tlolerated [facility] [id number]
[2019-03-26] MEDS: ZOLPIDEM TARTRATE 5 MG TABLET PO PRN (21:41)
[2019-03-26] MEDS: CHLORHEXIDINE GLUCONATE 4% CLEANSER FOR DECOLONIZATION TP SCH (21:43)
--- NOTE | 2019-03-26 22:04 | PN ---
Progress Note, Physician - Current Medication List Current Medications: Active Medications Alvimopan (Entereg Capsule (Restricted) -) 12 mg PO BID [facility] Stop: 03/30/19 22:01 Last Admin: 03/26/19 21:41 Dose: 12 mg Amlodipine Besylate (Norvasc -) 5 mg PO DAILY [facility] Last Admin: 03/26/19 09:19 Dose: 5 mg Aspirin (Ecotrin -) 81 mg PO DAILY [facility] Last Admin: 03/26/19 09:18 Dose: 81 mg Chlorhexidine Gluconate (Hibiclens For Decolonization -) 1 applic TP HS [facility] Last Admin: 03/26/19 21:43 Dose: 1 applic Diazepam (Valium -) 5 mg PO DAILY [facility] Last Admin: 03/26/19 09:02 Dose: 5 mg Enoxaparin Sodium (Lovenox -) 30 mg SQ BID [facility] Last Admin: 03/26/19 09:03 Dose: 30 mg Fentanyl (Sublimaze Injection -) 50 mcg IVPUSH [id number] PRN PRN Reason: PAIN-PACU ORDER X 4 DOSES ONLY Last Admin: 03/23/19 21:40 Dose: 50 mcg Piperacillin Sod/Tazobactam (Sod 3.375 gm/ Dextrose) 50 mls @ 100 mls/hr IVPB Q8H-IV [facility]; Protocol Last Admin: 03/26/19 17:24 Dose: 100 mls/hr Sodium Chloride (1/2 Normal Saline) 1,000 mls @ 100 mls/hr IV ASDIR [facility] Last Admin: 03/26/19 15:00 Dose: 100 mls/hr Levothyroxine Sodium (Synthroid Injection -) 12.5 mcg IVPUSH DAILY@0700 [facility] Last Admin: 03/26/19 06:39 Dose: 12.5 mcg Metoprolol Tartrate (Lopressor Injection -) 5 mg IVPUSH Q6H [facility] Last Admin: 03/26/19 17:20 Dose: 5 mg Morphine Sulfate (Morphine Sulfate) 2 mg IVPUSH Q4H PRN PRN Reason: PAIN LEVEL 6-10 Last Admin: 03/26/19 18:10 Dose: 2 mg Mupirocin (Bactroban Ointment (For Decolonization) -) 1 applic NS BID [facility] Stop: 03/28/19 21:59 Last Admin: 03/26/19 21:40 Dose: 1 applic Ondansetron HCl (Zofran Injection) 4 mg IVPUSH Q6H PRN PRN Reason: NAUSEA Pantoprazole Sodium (Protonix -) 40 mg PO BID [facility] Last Admin: 03/26/19 21:43 Dose: 40 mg Sertraline HCl (Zoloft -) 50 mg PO DAILY [facility] Last Admin: 03/26/19 09:03 Dose: 50 mg Zolpidem Tartrate (Ambien -) 10 mg PO HS PRN PRN Reason: INSOMNIA Last Admin: 03/26/19 21:41 Dose: 10 mg - Objective Vital Signs: Vital Signs Temperature 98.1 F 03/26/19 18:00 Pulse Rate 92 H 03/26/19 19:38 Respiratory Rate 16 03/26/19 19:58 Blood Pressure 115/64 03/26/19 19:38 O2 Sat by Pulse Oximetry (%) 98 03/26/19 19:58 Labs: CBC, BMP 03/26/19 05:25 03/26/19 05:25
[2019-03-26 22:27] LABS: URINE APPEARANCE Clear; URINE BILIRUBIN Negative (NEGATIVE); URINE COLOR Yellow; URINE GLUCOSE (UA) Negative (NEGATIVE); URINE KETONE Negative (NEGATIVE); URINE LEUK ESTERASE 1+ (NEGATIVE); URINE NITRITE Negative (NEGATIVE); URINE PROTEIN Negative (NEGATIVE); URINE UROBILINOGEN 0.2 mg/dL (0.2-1.0)
[2019-03-26 23:09] LABS: EPI CELLS 1.1 /HPF (0-5/HPF); HYALINE CASTS 0.73 /lpf (0-8); URINE BACTERIA 1.5 /hpf (NEGATIVE); URINE WBC 2.7 /hpf (0-5)
[2019-03-27] MEDS ORDERED: PIPERACILLIN/TAZOBACTAM 3.375 GM VIAL IVPB ONE ×2 (00:53→08:44)
[2019-03-27] MEDS ORDERED: DEXTROSE 5%-WATER - 50 ML IVPB ONE ×2 (00:53→08:44)
[2019-03-27] MEDS: METOPROLOL TARTRATE 5 MG/5 ML VIAL IVPUSH SCH ×2 (01:45→06:21)
[2019-03-27] MEDS: PIPERACILLIN/TAZOB 3.375 GM 3.375 GM in DEXTROSE 5%-WATER - 50 ML IVPB SCH ×2 (01:47→09:12)
[2019-03-27] MEDS: MORPHINE SULFATE 2 MG/ML VIAL IVPUSH PRN ×2 (05:45→10:15)
[2019-03-27] MEDS: LEVOTHYROXINE SODIUM 100 MCG VIAL IVPUSH SCH (06:19)
--- NOTE | 2019-03-27 08:46 | PN ---
Progress Note (short form) - Note Progress Note: RENAL Pt is awake and alert does not provide any complaints appetite is good Last Vital Signs Temp Pulse Resp BP Pulse Ox 98 F 100 H 18 130/63 98 03/27/19 02:00 03/27/19 06:21 03/27/19 06:00 03/27/19 06:21 03/26/19 19:58 lungs clear cvs s1s2 rr abd soft, has ostomy bag with stool ext +upper ext edema neuro a+o skin no lesions noted CBC, BMP 03/26/19 05:25 03/26/19 05:25 Current Medications Generic Name Dose Route Start Last Admin Trade Name Freq PRN Reason Stop Dose Admin Alvimopan 12 mg 03/24/19 10:00 03/26/19 21:41 Entereg Capsule (Restricted) - PO 03/30/19 22:01 12 mg BID [facility] Administration Amlodipine Besylate 5 mg 03/25/19 10:00 03/26/19 09:19 Norvasc - PO 5 mg DAILY [facility] Administration Aspirin 81 mg 03/25/19 10:00 03/26/19 09:18 Ecotrin - PO 81 mg DAILY [facility] Administration Chlorhexidine Gluconate 1 applic 03/23/19 22:00 03/26/19 21:43 Hibiclens For Decolonization - TP 1 applic HS [facility] Administration Diazepam 5 mg 03/25/19 10:00 03/26/19 09:02 Valium - PO 5 mg DAILY [facility] Administration Enoxaparin Sodium 30 mg 03/24/19 10:00 03/26/19 22:08 Lovenox - SQ 30 mg BID [facility] Administration Fentanyl 50 mcg 03/23/19 20:45 03/23/19 21:40 Sublimaze Injection - IVPUSH 50 mcg [id number] PRN Administration PAIN-PACU ORDER X 4 DOSES ONLY Piperacillin Sod/Tazobactam 50 mls @ 100 mls/hr 03/25/19 12:45 03/27/19 01:47 Sod 3.375 gm/ Dextrose IVPB 100 mls/hr Q8H-IV [facility] Administration Protocol Levothyroxine Sodium 12.5 mcg 03/24/19 07:00 03/27/19 06:19 Synthroid Injection - IVPUSH 100 mcg DAILY@0700 [facility] Administration Metoprolol Tartrate 5 mg 03/24/19 12:00 03/27/19 06:21 Lopressor Injection - IVPUSH 5 mg Q6H [facility] Administration Morphine Sulfate 2 mg 03/24/19 11:53 03/27/19 05:45 Morphine Sulfate IVPUSH 2 mg Q4H PRN Administration PAIN LEVEL 6-10 Mupirocin 1 applic 03/23/19 22:00 03/26/19 21:40 Bactroban Ointment (For Decolonization) - NS 03/28/19 21:59 1 applic BID [facility] Administration Ondansetron HCl 4 mg 03/24/19 01:00 Zofran Injection IVPUSH Q6H PRN NAUSEA Pantoprazole Sodium 40 mg 03/25/19 22:00 03/26/19 21:43 Protonix - PO 40 mg BID [facility] Administration Sertraline HCl 50 mg 03/25/19 10:00 03/26/19 09:03 Zoloft - PO 50 mg DAILY [facility] Administration Zolpidem Tartrate 10 mg 03/25/19 22:00 03/26/19 21:41 Ambien - PO 10 mg HS PRN Administration INSOMNIA Impression 1. CKD- no protein on ua 2. hyperkalemia 3. abdominal pain 4. hx of perforated diverticula 5. acidosis resolved 6. hld 7. CAD 8. HTN 9. anxiety 10. 1.3 cm left adrenal nodule 11. 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 hx elevated light chains Plan low k diet avoid nephrotoxins and hypotension await todays labs if not already done will need hormonal work up as outpatient- adrenal nodule pt on alvimopan per protocol. Maybe able to stop if already taking po MV
[2019-03-27] MEDS: PANTOPRAZOLE 40 MG TABLET PO SCH ×2 (09:09→21:29)
[2019-03-27] MEDS: amLODIPine BESYLATE 5 MG TABLET (FP) PO SCH (09:09)
[2019-03-27] MEDS: diazePAM 5 MG TABLET PO SCH (09:10)
[2019-03-27] MEDS: ASPIRIN COATED 81 MG TABLET.EC PO SCH (09:10)
[2019-03-27] MEDS: SERTRALINE HCL 50 MG TABLET (FP) PO SCH (09:10)
[2019-03-27] MEDS: ALVIMOPAN 12 MG CAP PO SCH ×2 (09:10→21:31)
[2019-03-27] MEDS: MUPIROCIN 2% TOPICAL OINTMENT FOR DECOLONIZATION NS SCH ×2 (09:35→21:29)
[2019-03-27] MEDS: ENOXAPARIN NA (PORCINE) 30 MG/0.3 ML DISP.SYRIN SQ SCH ×2 (09:43→21:29)
--- NOTE | 2019-03-27 10:48 | PN ---
Progress Note, Physician History of Present Illness: s/p r hemicolectomy, closure of colostomy and ventral hernia repair feeling well reports being hungry - Current Medication List Current Medications: Active Medications Alvimopan (Entereg Capsule (Restricted) -) 12 mg PO BID [facility] Stop: 03/30/19 22:01 Last Admin: 03/27/19 09:10 Dose: 12 mg Amlodipine Besylate (Norvasc -) 5 mg PO DAILY [facility] Last Admin: 03/27/19 09:09 Dose: 5 mg Aspirin (Ecotrin -) 81 mg PO DAILY [facility] Last Admin: 03/27/19 09:10 Dose: 81 mg Chlorhexidine Gluconate (Hibiclens For Decolonization -) 1 applic TP HS [facility] Last Admin: 03/26/19 21:43 Dose: 1 applic Diazepam (Valium -) 5 mg PO DAILY [facility] Last Admin: 03/27/19 09:10 Dose: 5 mg Enoxaparin Sodium (Lovenox -) 30 mg SQ BID [facility] Last Admin: 03/27/19 09:43 Dose: 30 mg Fentanyl (Sublimaze Injection -) 50 mcg IVPUSH [id number] PRN PRN Reason: PAIN-PACU ORDER X 4 DOSES ONLY Last Admin: 03/23/19 21:40 Dose: 50 mcg Piperacillin Sod/Tazobactam (Sod 3.375 gm/ Dextrose) 50 mls @ 100 mls/hr IVPB Q8H-IV [facility]; Protocol Last Admin: 03/27/19 09:12 Dose: 100 mls/hr Levothyroxine Sodium (Synthroid Injection -) 12.5 mcg IVPUSH DAILY@0700 [facility] Last Admin: 03/27/19 06:19 Dose: 100 mcg Metoprolol Tartrate (Lopressor Injection -) 5 mg IVPUSH Q6H [facility] Last Admin: 03/27/19 06:21 Dose: 5 mg Morphine Sulfate (Morphine Sulfate) 2 mg IVPUSH Q4H PRN PRN Reason: PAIN LEVEL 6-10 Last Admin: 03/27/19 05:45 Dose: 2 mg Mupirocin (Bactroban Ointment (For Decolonization) -) 1 applic NS BID [facility] Stop: 03/28/19 21:59 Last Admin: 03/27/19 09:35 Dose: 1 applic Ondansetron HCl (Zofran Injection) 4 mg IVPUSH Q6H PRN PRN Reason: NAUSEA Pantoprazole Sodium (Protonix -) 40 mg PO BID [facility] Last Admin: 03/27/19 09:09 Dose: 40 mg Sertraline HCl (Zoloft -) 50 mg PO DAILY [facility] Last Admin: 03/27/19 09:10 Dose: 50 mg Zolpidem Tartrate (Ambien -) 10 mg PO HS PRN PRN Reason: INSOMNIA Last Admin: 03/26/19 21:41 Dose: 10 mg - Objective Vital Signs: Vital Signs Temperature 98 F 03/27/19 02:00 Pulse Rate 100 H 03/27/19 06:21 Respiratory Rate 18 03/27/19 06:00 Blood Pressure 130/63 03/27/19 06:21 O2 Sat by Pulse Oximetry (%) 98 03/26/19 19:58 Gastrointestinal: Yes: Other (wound care perfomed, ostomy appliance changed) Labs: CBC, BMP 03/26/19 05:25 03/26/19 05:25 Problem List - Problems (1) Status post Anthony's procedure Code(s): Z93.3 - COLOSTOMY STATUS Assessment/Plan 78 yr old female s/p right hemicolectomy, closure of left colostomy and ventral hernia repair. POD4 doing well. Advance to regular diet OOB PT consult Change meds to PO Chest PT
[2019-03-27 11:21] LABS: HEMATOCRIT 26.1 % (32.4-45.2); HEMOGLOBIN 8.8 GM/dL (10.7-15.3); MCH 28.5 pg (25.7-33.7); MCHC 33.9 g/dl (32.0-36.0); MEAN CELL VOLUME 84.1 fl (80-96); MEAN PLT VOLUME 7.8 fl (7.5-11.1); PLATELET COUNT 236 K/MM3 (134-434); RDW 15.5 % (11.6-15.6); WHITE BLOOD COUNT 10.9 K/mm3 (4.0-10.0)
[2019-03-27] MEDS: metoPROLOL SUCCINATE 25 MG TAB.SR.24H (FP) PO SCH (11:41)
[2019-03-27 11:48] LABS: ALBUMIN 2.6 g/dl (3.4-5.0); BILIRUBIN,TOTAL 0.9 mg/dL (0.2-1); CALCIUM 8.6 mg/dL (8.5-10.1); CREATININE 1.5 mg/dL (0.55-1.3); MAGNESIUM 2.1 mg/dL (1.8-2.4); PHOSPHOROUS 3.6 mg/dL (2.5-4.9); POTASSIUM 4.2 mmol/L (3.5-5.1); TOT PROT 6.6 g/dl (6.4-8.2)
--- NOTE | 2019-03-27 12:21 | PN ---
Progress Note (short form) - Note Progress Note: Progress Note Pulm/CCM Pt seen and examined in the ICU. Ostomy pink and patent,liquid stool. Mid line incision dry. ROGE drains intact with minimal drainage. Tolerating po's. Advanced to regular diet by surgery. OOB to chair. Active Medications Alvimopan (Entereg Capsule (Restricted) -) 12 mg PO BID [facility] Stop: 03/30/19 22:01 Last Admin: 03/27/19 09:10 Dose: 12 mg Amlodipine Besylate (Norvasc -) 5 mg PO DAILY [facility] Last Admin: 03/27/19 09:09 Dose: 5 mg Aspirin (Ecotrin -) 81 mg PO DAILY [facility] Last Admin: 03/27/19 09:10 Dose: 81 mg Chlorhexidine Gluconate (Hibiclens For Decolonization -) 1 applic TP HS [facility] Last Admin: 03/26/19 21:43 Dose: 1 applic Diazepam (Valium -) 5 mg PO DAILY [facility] Last Admin: 03/27/19 09:10 Dose: 5 mg Enoxaparin Sodium (Lovenox -) 30 mg SQ BID [facility] Last Admin: 03/27/19 09:43 Dose: 30 mg Levothyroxine Sodium (Synthroid -) 25 mcg PO DAILY@0700 [facility] Metoprolol Succinate (Toprol Xl -) 25 mg PO DAILY [facility] Last Admin: 03/27/19 11:41 Dose: 25 mg Mupirocin (Bactroban Ointment (For Decolonization) -) 1 applic NS BID [facility] Stop: 03/28/19 21:59 Last Admin: 03/27/19 09:35 Dose: 1 applic Ondansetron HCl (Zofran Injection) 4 mg IVPUSH Q6H PRN PRN Reason: NAUSEA Oxycodone HCl (Roxicodone -) 5 mg PO Q4H PRN PRN Reason: PAIN LEVEL 1-5 Pantoprazole Sodium (Protonix -) 40 mg PO BID [facility] Last Admin: 03/27/19 09:09 Dose: 40 mg Sertraline HCl (Zoloft -) 50 mg PO DAILY [facility] Last Admin: 03/27/19 09:10 Dose: 50 mg Zolpidem Tartrate (Ambien -) 10 mg PO HS PRN PRN Reason: INSOMNIA Last Admin: 03/26/19 21:41 Dose: 10 mg Vital Signs Period Temp Pulse Resp BP Sys/Andrews Pulse Ox Last 24 Hr 98 F-98.2 F 82-111 15-20 114-155/41-99 98-98 Intake & Output 03/24/19 03/25/19 03/26/19 03/27/19 23:59 23:59 23:59 23:59 Intake Total 1988 2730 3240 1150 Output Total 1490 2180 3590 530 Balance 498 550 -350 620 Weight 89.358 kg Gen: Awake and alert Heart: RRR Lung: diminished bases Abd: soft, dressings clean, +ostomy pink, +ROGE minimal output Ext: no edema neuro: non-focal, interactive with family, alert CBC, BMP 03/27/19 11:00 03/27/19 11:00 ASSESSMENT AND PLAN: POD #4 s/p ex-lap/SOPHIE/right hemicolectomy with primary anastamosis/colostomy closure with colo-rectal anastamosis/cecal tumor resection/loop ileostomy Acute Blood Loss Anemia CAD s/p CABG HTN Hyperlipidemia Hypothyroidism CKD Anxiety/Depression Diverticulitis S/P Hartmans 04/2018 - pain control - incentive spirometry - OOB to chair - D/c ABX - monitor drain, ostomy output - monitor urine output, creatinine - monitor lytes - PO per surgery, advance as flor - Ok for floor - OOB as tolerated Rhiannon Berry, ACNP
--- NOTE | 2019-03-27 12:46 | PN ---
Progress Note, Physician History of Present Illness: stable no new issues starting to do better starting orally - Current Medication List Current Medications: Active Medications Alvimopan (Entereg Capsule (Restricted) -) 12 mg PO BID [facility] Stop: 03/30/19 22:01 Last Admin: 03/27/19 09:10 Dose: 12 mg Amlodipine Besylate (Norvasc -) 5 mg PO DAILY [facility] Last Admin: 03/27/19 09:09 Dose: 5 mg Aspirin (Ecotrin -) 81 mg PO DAILY [facility] Last Admin: 03/27/19 09:10 Dose: 81 mg Chlorhexidine Gluconate (Hibiclens For Decolonization -) 1 applic TP HS [facility] Last Admin: 03/26/19 21:43 Dose: 1 applic Diazepam (Valium -) 5 mg PO DAILY [facility] Last Admin: 03/27/19 09:10 Dose: 5 mg Enoxaparin Sodium (Lovenox -) 30 mg SQ BID [facility] Last Admin: 03/27/19 09:43 Dose: 30 mg Levothyroxine Sodium (Synthroid -) 25 mcg PO DAILY@0700 [facility] Metoprolol Succinate (Toprol Xl -) 25 mg PO DAILY [facility] Last Admin: 03/27/19 11:41 Dose: 25 mg Mupirocin (Bactroban Ointment (For Decolonization) -) 1 applic NS BID [facility] Stop: 03/28/19 21:59 Last Admin: 03/27/19 09:35 Dose: 1 applic Ondansetron HCl (Zofran Injection) 4 mg IVPUSH Q6H PRN PRN Reason: NAUSEA Oxycodone HCl (Roxicodone -) 5 mg PO Q4H PRN PRN Reason: PAIN LEVEL 1-5 Pantoprazole Sodium (Protonix -) 40 mg PO BID [facility] Last Admin: 03/27/19 09:09 Dose: 40 mg Sertraline HCl (Zoloft -) 50 mg PO DAILY [facility] Last Admin: 03/27/19 09:10 Dose: 50 mg Zolpidem Tartrate (Ambien -) 10 mg PO HS PRN PRN Reason: INSOMNIA Last Admin: 03/26/19 21:41 Dose: 10 mg - Objective Vital Signs: Vital Signs Temperature 98.2 F 03/27/19 08:00 Pulse Rate 98 H 03/27/19 12:00 Respiratory Rate 20 03/27/19 12:00 Blood Pressure 149/69 03/27/19 12:00 O2 Sat by Pulse Oximetry (%) 98 03/27/19 09:00 Constitutional: Yes: No Distress, Calm Cardiovascular: Yes: S1, S2 Respiratory: Yes: Regular, CTA Bilaterally Gastrointestinal: Yes: Normal Bowel Sounds, Soft, Other (colostomy in place) Musculoskeletal: Yes: WNL Extremities: Yes: WNL Neurological: Yes: Alert, Oriented Psychiatric: Yes: Alert, Oriented Labs: CBC, BMP 03/27/19 11:00 03/27/19 11:00 Assessment/Plan POD #2 s/p ex-lap/SOPHIE/right hemicolectomy with primary anastamosis/colostomy closure with colo-rectal anastamosis/cecal tumor resection/loop ileostomy Acute Blood Loss Anemia CAD s/p CABG HTN Hyperlipidemia Hypothyroidism CKD Anxiety/Depression Diverticulitis S/P Hartmans 04/2018 plan will stop abx and monitor ]nutrition diet as per surgery rest as per icu cc35 min
[2019-03-27] MEDS: oxyCODONE HCL 5 MG TABLET PO PRN ×2 (14:24→20:50)
--- NOTE | 2019-03-27 21:15 | PN ---
Progress Note, Physician History of Present Illness: Pt less agitated and less pain - Current Medication List Current Medications: Active Medications Alvimopan (Entereg Capsule (Restricted) -) 12 mg PO BID [facility] Stop: 03/30/19 22:01 Last Admin: 03/27/19 09:10 Dose: 12 mg Amlodipine Besylate (Norvasc -) 5 mg PO DAILY [facility] Last Admin: 03/27/19 09:09 Dose: 5 mg Aspirin (Ecotrin -) 81 mg PO DAILY [facility] Last Admin: 03/27/19 09:10 Dose: 81 mg Chlorhexidine Gluconate (Hibiclens For Decolonization -) 1 applic TP HS [facility] Last Admin: 03/26/19 21:43 Dose: 1 applic Diazepam (Valium -) 5 mg PO DAILY [facility] Last Admin: 03/27/19 09:10 Dose: 5 mg Enoxaparin Sodium (Lovenox -) 30 mg SQ BID [facility] Last Admin: 03/27/19 09:43 Dose: 30 mg Levothyroxine Sodium (Synthroid -) 25 mcg PO DAILY@0700 [facility] Metoprolol Succinate (Toprol Xl -) 25 mg PO DAILY [facility] Last Admin: 03/27/19 11:41 Dose: 25 mg Mupirocin (Bactroban Ointment (For Decolonization) -) 1 applic NS BID [facility] Stop: 03/28/19 21:59 Last Admin: 03/27/19 09:35 Dose: 1 applic Ondansetron HCl (Zofran Injection) 4 mg IVPUSH Q6H PRN PRN Reason: NAUSEA Oxycodone HCl (Roxicodone -) 5 mg PO Q4H PRN PRN Reason: PAIN LEVEL 1-5 Last Admin: 03/27/19 20:50 Dose: 5 mg Pantoprazole Sodium (Protonix -) 40 mg PO BID [facility] Last Admin: 03/27/19 09:09 Dose: 40 mg Sertraline HCl (Zoloft -) 50 mg PO DAILY [facility] Last Admin: 03/27/19 09:10 Dose: 50 mg Zolpidem Tartrate (Ambien -) 10 mg PO HS PRN PRN Reason: INSOMNIA Last Admin: 03/26/19 21:41 Dose: 10 mg - Objective Vital Signs: Vital Signs Temperature 98 F 03/27/19 12:00 Pulse Rate 91 H 03/27/19 20:00 Respiratory Rate 18 03/27/19 20:00 Blood Pressure 136/76 03/27/19 20:00 O2 Sat by Pulse Oximetry (%) 98 03/27/19 09:00 Neck: Yes: WNL, Supple Cardiovascular: Yes: Tachycardia Respiratory: Yes: WNL, Regular, CTA Bilaterally Gastrointestinal: Yes: Soft, Other ((+) colostomy RLQ) Labs: CBC, BMP 03/27/19 11:00 03/27/19 11:00 Problem List - Problems (1) Status post Anthony's procedure Assessment/Plan: As per surgery Pt tolerating diet Cont wound care Code(s): Z93.3 - COLOSTOMY STATUS (2) Anemia Assessment/Plan: Acute blood loss anemia H/H has remained stable Cont to monitor Code(s): D64.9 - ANEMIA, UNSPECIFIED (3) HTN (hypertension) Assessment/Plan: BP stable Cont norvasc/asa/metoprolol Code(s): I10 - ESSENTIAL (PRIMARY) HYPERTENSION Qualifiers: Hypertension type: essential hypertension Qualified Code(s): I10 - Essential (primary) hypertension (4) Hypothyroidism Assessment/Plan: Cont levothyroxine Code(s): E03.9 - HYPOTHYROIDISM, UNSPECIFIED Qualifiers: Hypothyroidism type: acquired Qualified Code(s): E03.9 - Hypothyroidism, unspecified (5) HLD (hyperlipidemia) Code(s): E78.5 - HYPERLIPIDEMIA, UNSPECIFIED
[2019-03-27] MEDS: CHLORHEXIDINE GLUCONATE 4% CLEANSER FOR DECOLONIZATION TP SCH (21:29)
[2019-03-27] MEDS: ZOLPIDEM TARTRATE 5 MG TABLET PO PRN (21:29)
[2019-03-27] MEDS ORDERED: PT OWN MED DRAWER 7, Y5N ONE (21:31)
[2019-03-27] MEDS ORDERED: ALBUTEROL SO4 HFA INHALER IH PRN (21:55)
[2019-03-27] MEDS ORDERED: IPRATROPIUM BR 0.02% 0.5 MG/2.5 ML VIAL.NEB. NEB PRN (21:57)
[2019-03-28] MEDS: LEVOTHYROXINE NA 25 MCG TABLET (FP) PO SCH (06:34)
[2019-03-28 06:57] LABS: HEMATOCRIT 27.1 % (32.4-45.2); MCH 28.5 pg (25.7-33.7); MCHC 33.3 g/dl (32.0-36.0); MEAN CELL VOLUME 85.5 fl (80-96); MEAN PLT VOLUME 8.4 fl (7.5-11.1); PLATELET COUNT 246 K/MM3 (134-434); RBC 3.17 M/mm3 (3.60-5.2); RDW 15.2 % (11.6-15.6); WHITE BLOOD COUNT 10.1 K/mm3 (4.0-10.0)
[2019-03-28 07:45] LABS: ALBUMIN 2.4 g/dl (3.4-5.0); BILIRUBIN,DIRECT 0.3 mg/dL (0.0-0.2); BILIRUBIN,TOTAL 0.6 mg/dL (0.2-1); BLOOD UREA NITROGEN 22.5 mg/dL (7-18); CALCIUM 8.4 mg/dL (8.5-10.1); CREATININE 1.5 mg/dL (0.55-1.3); MAGNESIUM 2.1 mg/dL (1.8-2.4); PHOSPHOROUS 4.1 mg/dL (2.5-4.9); POTASSIUM 4.3 mmol/L (3.5-5.1); TOT PROT 6.2 g/dl (6.4-8.2)
[2019-03-28] MEDS: oxyCODONE HCL 5 MG TABLET PO PRN ×4 (07:50→20:42)
[2019-03-28] MEDS: PANTOPRAZOLE 40 MG TABLET PO SCH ×2 (10:19→21:13)
[2019-03-28] MEDS: metoPROLOL SUCCINATE 25 MG TAB.SR.24H (FP) PO SCH (10:19)
[2019-03-28] MEDS: ASPIRIN COATED 81 MG TABLET.EC PO SCH (10:19)
[2019-03-28] MEDS: SERTRALINE HCL 50 MG TABLET (FP) PO SCH (10:20)
[2019-03-28] MEDS: diazePAM 5 MG TABLET PO SCH (10:20)
[2019-03-28] MEDS: amLODIPine BESYLATE 5 MG TABLET (FP) PO SCH (10:20)
[2019-03-28] MEDS: ENOXAPARIN NA (PORCINE) 30 MG/0.3 ML DISP.SYRIN SQ SCH ×2 (10:21→21:13)
[2019-03-28] MEDS: MUPIROCIN 2% TOPICAL OINTMENT FOR DECOLONIZATION NS SCH (10:21)
--- NOTE | 2019-03-28 10:32 | PN ---
Progress Note (short form) - Note Progress Note: surgery POD #5 s/p r hemicolectomy, closure of colostomy and ventral hernia repair feeling well. She tolerating her diet and denies and CP, SOB, N/V, fever or chills. she remains tachycardic which could be related to her anxiety or pain level. Vital Signs Temp 99.0 F 03/28/19 10:00 Pulse 108 H 03/28/19 10:00 Resp 18 03/28/19 10:00 BP 126/66 03/28/19 10:00 Pulse Ox 95 03/27/19 21:00 Intake & Output 03/27/19 03/27/19 03/28/19 11:59 23:59 11:59 Intake Total 1150 730 260 Output Total 530 1650 Balance 620 -920 260 Intake: IV 500 20 10 1/2 Normal Saline 1,000 500 ml @ 100 mls/hr IV ASDIR MARY JANE Rx#:[id number] saline lock 20 10 IVPB 50 100 Oral 480 610 250 Tube Feeding 120 Output: Drainage 30 Abdomen 30 Urine 500 1250 [place] 500 1250 Ileostomy 400 Other: Voiding Method External Catheter Indwelling Catheter Bowel Movement Yes: colestomy Yes: ileostomy Yes: ileostomy CBC, BMP 03/28/19 05:25 03/28/19 05:25 PE: A&Ox3, NAD unlabored resp on RA ABD: soft, ND with some diffuse tenderness throughout, dressings c/d/i with surrounding tissue intact and no evidence of active d/c, ileostomy- pink, protruding and functioning with stool in the bag. CXR pending Problem List - Problems (1) Status post Anthony's procedure Assessment/Plan: 78 yr old female s/p right hemicolectomy, closure of left colostomy and ventral hernia repair POD #5 doing well. f/u CXR Encourage IS OOB as tolerated Chest PT Evaluation and plan discussed with Dr Hamilton Code(s): Z93.3 - COLOSTOMY STATUS
[2019-03-28] MEDS: ALVIMOPAN 12 MG CAP PO SCH ×2 (11:10→21:05)
[2019-03-28] MEDS ORDERED: PT OWN MED DRAWER 7, Y5N ONE (11:10)
--- NOTE | 2019-03-28 11:44 | PN ---
Teaching Attending Note Name of Resident: Jeanmarie Paredes ATTENDING PHYSICIAN STATEMENT I saw and evaluated the patient. I reviewed the resident's note and discussed the case with the resident. I agree with the resident's findings and plan as documented. SUBJECTIVE: Patient seen and examined in the ICU. Awake and alert. Sinus tachycardia noted. Reports pain is 6/10. No CP or SOB. Tolerating PO Intake. CXR: minimal right mid lung field atelectasis Intake & Output 03/25/19 03/26/19 03/27/19 03/28/19 23:59 23:59 23:59 23:59 Intake Total 2730 3240 1880 260 Output Total 2180 3590 2180 Balance 550 -350 -300 260 Weight 197 lb Last Vital Signs Temp Pulse Resp BP Pulse Ox 99.0 F 108 H 18 126/66 95 03/28/19 10:00 03/28/19 10:00 03/28/19 10:00 03/28/19 10:00 03/28/19 09:00 Active Medications Alvimopan (Entereg Capsule (Restricted) -) 12 mg PO BID [facility] Stop: 03/30/19 22:01 Last Admin: 03/28/19 11:10 Dose: 12 mg Amlodipine Besylate (Norvasc -) 5 mg PO DAILY [facility] Last Admin: 03/28/19 10:20 Dose: 5 mg Aspirin (Ecotrin -) 81 mg PO DAILY [facility] Last Admin: 03/28/19 10:19 Dose: 81 mg Chlorhexidine Gluconate (Hibiclens For Decolonization -) 1 applic TP HS [facility] Last Admin: 03/27/19 21:29 Dose: Not Given Diazepam (Valium -) 5 mg PO DAILY [facility] Last Admin: 03/28/19 10:20 Dose: 5 mg Enoxaparin Sodium (Lovenox -) 30 mg SQ BID [facility] Last Admin: 03/28/19 10:21 Dose: 30 mg Ipratropium [place] (Atrovent 0.02% Nebulizer -) 1 amp NEB Q6H PRN PRN Reason: SHORTNESS OF BREATH Stop: 04/03/19 21:57 Levothyroxine Sodium (Synthroid -) 25 mcg PO DAILY@0700 [facility] Last Admin: 03/28/19 06:34 Dose: 25 mcg Metoprolol Succinate (Toprol Xl -) 25 mg PO DAILY [facility] Last Admin: 03/28/19 10:19 Dose: 25 mg Mupirocin (Bactroban Ointment (For Decolonization) -) 1 applic NS BID [facility] Stop: 03/28/19 21:59 Last Admin: 03/28/19 10:21 Dose: 1 applic Ondansetron HCl (Zofran Injection) 4 mg IVPUSH Q6H PRN PRN Reason: NAUSEA Oxycodone HCl (Roxicodone -) 5 mg PO Q4H PRN PRN Reason: PAIN LEVEL 1-5 Last Admin: 03/28/19 07:50 Dose: 5 mg Pantoprazole Sodium (Protonix -) 40 mg PO BID [facility] Last Admin: 03/28/19 10:19 Dose: 40 mg Sertraline HCl (Zoloft -) 50 mg PO DAILY [facility] Last Admin: 03/28/19 10:20 Dose: 50 mg Zolpidem Tartrate (Ambien -) 10 mg PO HS PRN PRN Reason: INSOMNIA Last Admin: 03/27/19 21:29 Dose: 10 mg Gen: Awake and alert Heart: RRR Lung: diminished bases Abd: soft, dressings clean, +ostomy pink, +ROGE minimal output Ext: no edema neuro: non-focal, interactive with family, alert Laboratory Results - last 24 hr 03/27/19 03/28/19 03/28/19 11:00 05:25 05:25 WBC 10.1 H RBC 3.17 L Hgb 9.0 L Hct 27.1 L MCV 85.5 MCH 28.5 MCHC 33.3 RDW 15.2 Plt Count 246 MPV 8.4 Sodium 139 140 Potassium 4.2 4.3 Chloride 108 H 108 H Carbon Dioxide 25 23 Anion Gap 7 L 8 BUN 21.0 H 22.5 H Creatinine 1.5 H 1.5 H Est GFR (CKD-EPI)AfAm 38.82 38.82 Est GFR (CKD-EPI)NonAf 33.49 33.49 Random Glucose 128 H 102 Calcium 8.6 8.4 L Phosphorus 3.6 4.1 Magnesium 2.1 2.1 Total Bilirubin 0.9 0.6 Direct Bilirubin 0.3 H AST 52 H 73 H ALT 41 77 H Alkaline Phosphatase 74 76 Total Protein 6.6 6.2 L Albumin 2.6 L 2.4 L ASSESSMENT AND PLAN: POD #5 s/p ex-lap/SOPHIE/right hemicolectomy with primary anastamosis/colostomy closure with colo-rectal anastamosis/cecal tumor resection/loop ileostomy Acute Blood Loss Anemia CAD s/p CABG HTN Hyperlipidemia Hypothyroidism CKD Anxiety/Depression Diverticulitis S/P Hartmans 04/2018 - Increase pain control - incentive spirometry - OOB to chair - monitor drain, ostomy output - monitor urine output, creatinine - monitor lytes - PO per surgery, advance as flor - OOB as tolerated - Floor when cleared by Surgery Dr Kim
--- NOTE | 2019-03-28 11:45 | PN ---
Physical Exam: SUBJECTIVE: Patient seen and examined in the morning. POD#5. No acute events overnight. Patient is tolerating small amounts of PO diet, is still in pain. Localizes pain to the right side of the abdomen. No complaints of chest pain, shortness of breath, nausea or vomiting. OBJECTIVE: Vital Signs Period Temp Pulse Resp BP Sys/Andrews Pulse Ox Last 24 Hr 98 F-99.0 F 87-113 15-23 126-149/63-76 95-95 GENERAL: The patient is awake, alert, and fully oriented, in no acute distress. HEAD: Normal with no signs of trauma. EYES: PERRLA, EOMI. ENT: Nasal cannula in place, moist mucous membranes. LUNGS: Breath sounds equal, clear to auscultation bilaterally, no wheezes, no crackles, no accessory muscle use. HEART: S1,S2, no murmurs rubs or gallops appreciated. . ABDOMEN: Tender to palpation in all 4 quadrants of the abdomen. Normoactive bowel sounds. Dressing in place, ileostomy in place. ROGE drain in place. EXTREMITIES: 2+ pulses, warm, well-perfused, no edema. NEUROLOGICAL: Cranial nerves II through XII grossly intact. Normal speech, gait not observed. PSYCH: Normal mood, normal affect. SKIN: Warm, dry, normal turgor, no rashes or lesions noted Laboratory Results - last 24 hr 03/27/19 03/27/19 03/28/19 11:00 11:00 05:25 WBC 10.9 H 10.1 H RBC 3.10 L 3.17 L Hgb 8.8 L 9.0 L Hct 26.1 L 27.1 L MCV 84.1 85.5 MCH 28.5 28.5 MCHC 33.9 33.3 RDW 15.5 15.2 Plt Count 236 D 246 MPV 7.8 8.4 Sodium 139 Potassium 4.2 Chloride 108 H Carbon Dioxide 25 Anion Gap 7 L BUN 21.0 H Creatinine 1.5 H Est GFR (CKD-EPI)AfAm 38.82 Est GFR (CKD-EPI)NonAf 33.49 Random Glucose 128 H Calcium 8.6 Phosphorus 3.6 Magnesium 2.1 Total Bilirubin 0.9 Direct Bilirubin AST 52 H ALT 41 Alkaline Phosphatase 74 Total Protein 6.6 Albumin 2.6 L 03/28/19 05:25 WBC RBC Hgb Hct MCV MCH MCHC RDW Plt Count MPV Sodium 140 Potassium 4.3 Chloride 108 H Carbon Dioxide 23 Anion Gap 8 BUN 22.5 H Creatinine 1.5 H Est GFR (CKD-EPI)AfAm 38.82 Est GFR (CKD-EPI)NonAf 33.49 Random Glucose 102 Calcium 8.4 L Phosphorus 4.1 Magnesium 2.1 Total Bilirubin 0.6 Direct Bilirubin 0.3 H AST 73 H ALT 77 H Alkaline Phosphatase 76 Total Protein 6.2 L Albumin 2.4 L Active Medications Generic Name Dose Route Start Last Admin Trade Name Freq PRN Reason Stop Dose Admin Alvimopan 12 mg 03/24/19 10:00 03/28/19 11:10 Entereg Capsule (Restricted) - PO 03/30/19 22:01 12 mg BID MARY JANE Administration Amlodipine Besylate 5 mg 03/25/19 10:00 03/28/19 10:20 Norvasc - PO 5 mg DAILY MARY JANE Administration Aspirin 81 mg 03/25/19 10:00 03/28/19 10:19 Ecotrin - PO 81 mg DAILY MARY JANE Administration Chlorhexidine Gluconate 1 applic 03/23/19 22:00 03/27/19 21:29 Hibiclens For Decolonization - TP Not Given HS MARY JANE Diazepam 5 mg 03/25/19 10:00 03/28/19 10:20 Valium - PO 5 mg DAILY MARY JANE Administration Enoxaparin Sodium 30 mg 03/24/19 10:00 03/28/19 10:21 Lovenox - SQ 30 mg BID MARY JANE Administration Ipratropium [place] 1 amp 03/27/19 21:57 Atrovent 0.02% Nebulizer - NEB 04/03/19 21:57 Q6H PRN SHORTNESS OF BREATH Levothyroxine Sodium 25 mcg 03/28/19 07:00 03/28/19 06:34 Synthroid - PO 25 mcg DAILY@0700 MARY JANE Administration Metoprolol Succinate 25 mg 03/27/19 11:00 03/28/19 10:19 Toprol Xl - PO 25 mg DAILY MARY JANE Administration Mupirocin 1 applic 03/23/19 22:00 03/28/19 10:21 Bactroban Ointment (For Decolonization) - NS 03/28/19 21:59 1 applic BID MARY JANE Administration Ondansetron HCl 4 mg 03/24/19 01:00 Zofran Injection IVPUSH Q6H PRN NAUSEA Oxycodone HCl 5 mg 03/27/19 10:57 03/28/19 07:50 Roxicodone - PO 5 mg Q4H PRN Administration PAIN LEVEL 1-5 Pantoprazole Sodium 40 mg 03/25/19 22:00 03/28/19 10:19 Protonix - PO 40 mg BID MARY JANE Administration Sertraline HCl 50 mg 03/25/19 10:00 03/28/19 10:20 Zoloft - PO 50 mg DAILY MARY JANE Administration Zolpidem Tartrate 10 mg 03/25/19 22:00 03/27/19 21:29 Ambien - PO 10 mg HS PRN Administration INSOMNIA ASSESSMENT/PLAN: 78F PMH diverticulitis with multiple abscesses s/p Anthony procedure on 04/03/18 , CAD s/p qadruple cardiac bypass, HTN, HLD, hypothyroidism, GERD, anxiety/ depression, currently POD#5 s/p ex-lap, lysis of adhesions, 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 Neuro: -AAOX3 -Hx anxiety/depression -Home meds: sertaline, diazepam, zolpidem -Continue to monitor, no acute issues. Cardiovascular: -Hx of HTN, CAD s/p quadruple bypass surger -BP stable, but patient is tachycardic -Lopressor 5 mg Q6H -Continue amlodipine and aspirin -Increase dose of pain medication to assist with pain- might be cause of tachycardia. tachycardia may also be 2/2 to anxiety. 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 -ROGE drain continues to have output, ileostomy functional. -Continue protonix BID, zofran PRN, oxycodone -Surgery following, appreciate recs Renal: -Creatinine of 1.5 today -Electrolytes within normal limits today -Clinton is in, patient is ambulating, making urine. -Nephrology following, appreciate recs Endo: -Hx of hypothyroidism -Continue levothyroxine 25 mcg daily Heme/Onc: -H/H: 11/26 today -2 units given intra-op and 1 unit in ICU. -Continue to monitor -Lovenox 30 BID ID: -Monitoring off antibiotics -ID following, appreciate recs DVT: Lovenox F: Oral hydration E: Monitor CMP N: Regular diet Lines: Patient has peripheral IV access. [place] catheter from 03/27. ROGE and ileostomy placed on surgery day 03/23. Dispo: Patient remains in ICU management for tachycardia. Visit type - Emergency Visit Emergency Visit: Yes ED Registration Date: 03/23/19 Care time: The patient presented to the Emergency Department on the above date and was hospitalized for further evaluation of their emergent condition. - New Patient This patient is new to me today: No - Critical Care Critical Care patient: Yes Total Critical Care Time (in minutes): 35 Critical Care Statement: The care of this patient involved high complexity decision making to prevent further life threatening deterioration of the patient 's condition and/or to evaluate & treat vital organ system(s) failure or risk of failure. ATTENDING PHYSICIAN STATEMENT I saw and evaluated the patient. I reviewed the resident's note and discussed the case with the resident. I agree with the resident's findings and plan as documented. SUBJECTIVE: OBJECTIVE: ASSESSMENT AND PLAN:
--- NOTE | 2019-03-28 12:59 | PN ---
Progress Note, Physician History of Present Illness: stable improving wbc trending down pain - Current Medication List Current Medications: Active Medications Alvimopan (Entereg Capsule (Restricted) -) 12 mg PO BID [facility] Stop: 03/30/19 22:01 Last Admin: 03/28/19 11:10 Dose: 12 mg Amlodipine Besylate (Norvasc -) 5 mg PO DAILY [facility] Last Admin: 03/28/19 10:20 Dose: 5 mg Aspirin (Ecotrin -) 81 mg PO DAILY [facility] Last Admin: 03/28/19 10:19 Dose: 81 mg Chlorhexidine Gluconate (Hibiclens For Decolonization -) 1 applic TP HS [facility] Last Admin: 03/27/19 21:29 Dose: Not Given Diazepam (Valium -) 5 mg PO DAILY [facility] Last Admin: 03/28/19 10:20 Dose: 5 mg Enoxaparin Sodium (Lovenox -) 30 mg SQ BID [facility] Last Admin: 03/28/19 10:21 Dose: 30 mg Ipratropium [place] (Atrovent 0.02% Nebulizer -) 1 amp NEB Q6H PRN PRN Reason: SHORTNESS OF BREATH Stop: 04/03/19 21:57 Levothyroxine Sodium (Synthroid -) 25 mcg PO DAILY@0700 [facility] Last Admin: 03/28/19 06:34 Dose: 25 mcg Metoprolol Succinate (Toprol Xl -) 25 mg PO DAILY [facility] Last Admin: 03/28/19 10:19 Dose: 25 mg Mupirocin (Bactroban Ointment (For Decolonization) -) 1 applic NS BID [facility] Stop: 03/28/19 21:59 Last Admin: 03/28/19 10:21 Dose: 1 applic Ondansetron HCl (Zofran Injection) 4 mg IVPUSH Q6H PRN PRN Reason: NAUSEA Oxycodone HCl (Roxicodone -) 5 mg PO Q4H PRN PRN Reason: PAIN LEVEL 1-5 Last Admin: 03/28/19 12:37 Dose: 5 mg Pantoprazole Sodium (Protonix -) 40 mg PO BID [facility] Last Admin: 03/28/19 10:19 Dose: 40 mg Sertraline HCl (Zoloft -) 50 mg PO DAILY [facility] Last Admin: 03/28/19 10:20 Dose: 50 mg Zolpidem Tartrate (Ambien -) 10 mg PO HS PRN PRN Reason: INSOMNIA Last Admin: 03/27/19 21:29 Dose: 10 mg - Objective Vital Signs: Vital Signs Temperature 99.0 F 03/28/19 10:00 Pulse Rate 108 H 03/28/19 10:00 Respiratory Rate 18 03/28/19 10:00 Blood Pressure 126/66 03/28/19 10:00 O2 Sat by Pulse Oximetry (%) 95 03/28/19 09:00 Constitutional: Yes: Calm, Mild Distress Cardiovascular: Yes: S1, S2 Respiratory: Yes: Regular, CTA Bilaterally Gastrointestinal: Yes: Normal Bowel Sounds, Soft Musculoskeletal: Yes: WNL, Muscle Weakness Wound/Incision: Yes: Dressing Dry and Intact Neurological: Yes: Alert, Oriented Psychiatric: Yes: Alert, Oriented Labs: CBC, BMP 03/28/19 05:25 03/28/19 05:25 Assessment/Plan POD #2 s/p ex-lap/SOPHIE/right hemicolectomy with primary anastamosis/colostomy closure with colo-rectal anastamosis/cecal tumor resection/loop ileostomy Acute Blood Loss Anemia CAD s/p CABG HTN Hyperlipidemia Hypothyroidism CKD Anxiety/Depression Diverticulitis S/P Hartmans 04/2018 plan continue current mgmt nutrition rest as per the team improving
--- NOTE | 2019-03-28 13:07 | PN ---
Progress Note, Physician History of Present Illness: Pt seen and examined at bedside. She is awake and alert. She feels much better. - Current Medication List Current Medications: Active Medications Alvimopan (Entereg Capsule (Restricted) -) 12 mg PO BID [facility] Stop: 03/30/19 22:01 Last Admin: 03/28/19 11:10 Dose: 12 mg Amlodipine Besylate (Norvasc -) 5 mg PO DAILY [facility] Last Admin: 03/28/19 10:20 Dose: 5 mg Aspirin (Ecotrin -) 81 mg PO DAILY [facility] Last Admin: 03/28/19 10:19 Dose: 81 mg Chlorhexidine Gluconate (Hibiclens For Decolonization -) 1 applic TP HS [facility] Last Admin: 03/27/19 21:29 Dose: Not Given Diazepam (Valium -) 5 mg PO DAILY [facility] Last Admin: 03/28/19 10:20 Dose: 5 mg Enoxaparin Sodium (Lovenox -) 30 mg SQ BID [facility] Last Admin: 03/28/19 10:21 Dose: 30 mg Ipratropium [place] (Atrovent 0.02% Nebulizer -) 1 amp NEB Q6H PRN PRN Reason: SHORTNESS OF BREATH Stop: 04/03/19 21:57 Levothyroxine Sodium (Synthroid -) 25 mcg PO DAILY@0700 [facility] Last Admin: 03/28/19 06:34 Dose: 25 mcg Metoprolol Succinate (Toprol Xl -) 25 mg PO DAILY [facility] Last Admin: 03/28/19 10:19 Dose: 25 mg Mupirocin (Bactroban Ointment (For Decolonization) -) 1 applic NS BID [facility] Stop: 03/28/19 21:59 Last Admin: 03/28/19 10:21 Dose: 1 applic Ondansetron HCl (Zofran Injection) 4 mg IVPUSH Q6H PRN PRN Reason: NAUSEA Oxycodone HCl (Roxicodone -) 5 mg PO Q4H PRN PRN Reason: PAIN LEVEL 1-5 Last Admin: 03/28/19 12:37 Dose: 5 mg Pantoprazole Sodium (Protonix -) 40 mg PO BID [facility] Last Admin: 03/28/19 10:19 Dose: 40 mg Sertraline HCl (Zoloft -) 50 mg PO DAILY [facility] Last Admin: 03/28/19 10:20 Dose: 50 mg Zolpidem Tartrate (Ambien -) 10 mg PO HS PRN PRN Reason: INSOMNIA Last Admin: 03/27/19 21:29 Dose: 10 mg - Objective Vital Signs: Vital Signs Temperature 99.0 F 03/28/19 10:00 Pulse Rate 108 H 03/28/19 10:00 Respiratory Rate 18 03/28/19 10:00 Blood Pressure 126/66 03/28/19 10:00 O2 Sat by Pulse Oximetry (%) 95 03/28/19 09:00 Constitutional: Yes: Calm Eyes: Yes: Conjunctiva Clear HENT: Yes: Atraumatic Cardiovascular: Yes: S1, S2 Respiratory: Yes: CTA Bilaterally Gastrointestinal: Yes: Soft Genitourinary: Yes: WNL Musculoskeletal: Yes: WNL Edema: No Neurological: Yes: Oriented Psychiatric: Yes: Oriented Labs: CBC, BMP 03/28/19 05:25 03/28/19 05:25 Assessment/Plan Current Medications Generic Name Dose Route Start Last Admin Trade Name Osmanq PRN Reason Stop Dose Admin Alvimopan 12 mg 03/24/19 10:00 03/28/19 11:10 Entereg Capsule (Restricted) - PO 03/30/19 22:01 12 mg BID MARY JANE Administration Amlodipine Besylate 5 mg 03/25/19 10:00 03/28/19 10:20 Norvasc - PO 5 mg DAILY MARY JANE Administration Aspirin 81 mg 03/25/19 10:00 03/28/19 10:19 Ecotrin - PO 81 mg DAILY MARY JANE Administration Chlorhexidine Gluconate 1 applic 03/23/19 22:00 03/27/19 21:29 Hibiclens For Decolonization - TP Not Given HS [facility] Diazepam 5 mg 03/25/19 10:00 03/28/19 10:20 Valium - PO 5 mg DAILY MARY JANE Administration Enoxaparin Sodium 30 mg 03/24/19 10:00 03/28/19 10:21 Lovenox - SQ 30 mg BID MARY JANE Administration Ipratropium [place] 1 amp 03/27/19 21:57 Atrovent 0.02% Nebulizer - NEB 04/03/19 21:57 Q6H PRN SHORTNESS OF BREATH Levothyroxine Sodium 25 mcg 03/28/19 07:00 03/28/19 06:34 Synthroid - PO 25 mcg DAILY@0700 MARY JANE Administration Metoprolol Succinate 25 mg 03/27/19 11:00 03/28/19 10:19 Toprol Xl - PO 25 mg DAILY MARY JANE Administration Mupirocin 1 applic 03/23/19 22:00 03/28/19 10:21 Bactroban Ointment (For Decolonization) - NS 03/28/19 21:59 1 applic BID MARY JANE Administration Ondansetron HCl 4 mg 03/24/19 01:00 Zofran Injection IVPUSH Q6H PRN NAUSEA Oxycodone HCl 5 mg 03/27/19 10:57 03/28/19 12:37 Roxicodone - PO 5 mg Q4H PRN Administration PAIN LEVEL 1-5 Pantoprazole Sodium 40 mg 03/25/19 22:00 03/28/19 10:19 Protonix - PO 40 mg BID MARY JANE Administration Sertraline HCl 50 mg 03/25/19 10:00 03/28/19 10:20 Zoloft - PO 50 mg DAILY MARY JANE Administration Zolpidem Tartrate 10 mg 03/25/19 22:00 03/27/19 21:29 Ambien - PO 10 mg HS PRN Administration INSOMNIA Impression 1. CKD 2. hyperkalemia 3. abdominal pain 4. hx of perforated diverticula 5. acidosis 6. hld 7. CAD 8. HTN 9. anxiety 10. 1.3 cm left adrenal nodule 11. 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 hx elevated light chains Plan - potassium stable - renal function stable - pt tolerating diet - no need for lasix today - monitor lytes
--- NOTE | 2019-03-28 13:47 | EKG ---
Test Reason : Blood Pressure : / mmHG Vent. Rate : 096 BPM Atrial Rate : 096 BPM P-R Int : 134 ms QRS Dur : 084 ms QT Int : 370 ms P-R-T Axes : 048 045 009 degrees QTc Int : 467 ms NORMAL SINUS RHYTHM ABNORMAL ECG WHEN COMPARED WITH ECG OF 09-AUG-2018 11:12, ST NOW DEPRESSED IN LATERAL LEADS T WAVE INVERSION NOW EVIDENT IN INFERIOR LEADS T WAVE INVERSION NOW EVIDENT IN LATERAL LEADS Confirmed by Pat Nugent ([id number]) on 03/28/2019 1:46:44 PM Referred By: Confirmed By:Pat Nugent
[2019-03-28] MEDS: CHLORHEXIDINE GLUCONATE 4% CLEANSER FOR DECOLONIZATION TP SCH (21:05)
[2019-03-28] MEDS: ZOLPIDEM TARTRATE 5 MG TABLET PO PRN (21:10)
--- NOTE | 2019-03-28 22:57 | PN ---
Progress Note, Physician History of Present Illness: Pt tolerating diet - Current Medication List Current Medications: Active Medications Alvimopan (Entereg Capsule (Restricted) -) 12 mg PO BID [facility] Stop: 03/30/19 22:01 Last Admin: 03/28/19 11:10 Dose: 12 mg Amlodipine Besylate (Norvasc -) 5 mg PO DAILY [facility] Last Admin: 03/28/19 10:20 Dose: 5 mg Aspirin (Ecotrin -) 81 mg PO DAILY [facility] Last Admin: 03/28/19 10:19 Dose: 81 mg Chlorhexidine Gluconate (Hibiclens For Decolonization -) 1 applic TP HS [facility] Last Admin: 03/27/19 21:29 Dose: Not Given Diazepam (Valium -) 5 mg PO DAILY [facility] Last Admin: 03/28/19 10:20 Dose: 5 mg Enoxaparin Sodium (Lovenox -) 30 mg SQ BID [facility] Last Admin: 03/28/19 21:13 Dose: 30 mg Ipratropium [place] (Atrovent 0.02% Nebulizer -) 1 amp NEB Q6H PRN PRN Reason: SHORTNESS OF BREATH Stop: 04/03/19 21:57 Levothyroxine Sodium (Synthroid -) 25 mcg PO DAILY@0700 [facility] Last Admin: 03/28/19 06:34 Dose: 25 mcg Metoprolol Succinate (Toprol Xl -) 25 mg PO DAILY [facility] Last Admin: 03/28/19 10:19 Dose: 25 mg Ondansetron HCl (Zofran Injection) 4 mg IVPUSH Q6H PRN PRN Reason: NAUSEA Oxycodone HCl (Roxicodone -) 5 mg PO Q4H PRN PRN Reason: PAIN LEVEL 1-5 Last Admin: 03/28/19 12:37 Dose: 5 mg Oxycodone HCl (Roxicodone -) 10 mg PO Q6H PRN PRN Reason: PAIN LEVEL 7 - 10 Last Admin: 03/28/19 20:42 Dose: 10 mg Pantoprazole Sodium (Protonix -) 40 mg PO BID [facility] Last Admin: 03/28/19 21:13 Dose: 40 mg Sertraline HCl (Zoloft -) 50 mg PO DAILY [facility] Last Admin: 03/28/19 10:20 Dose: 50 mg Zolpidem Tartrate (Ambien -) 10 mg PO HS PRN PRN Reason: INSOMNIA Last Admin: 03/28/19 21:10 Dose: 10 mg - Objective Vital Signs: Vital Signs Temperature 98.9 F 03/28/19 18:30 Pulse Rate 94 H 03/28/19 18:30 Respiratory Rate 14 03/28/19 18:30 Blood Pressure 113/70 03/28/19 18:30 O2 Sat by Pulse Oximetry (%) 97 03/28/19 18:00 Neck: Yes: WNL, Supple Cardiovascular: Yes: WNL, Regular Rate and Rhythm Respiratory: Yes: WNL, Regular, CTA Bilaterally Gastrointestinal: Yes: Normal Bowel Sounds, Soft, Other Labs: CBC, BMP 03/28/19 05:25 03/28/19 05:25 Problem List - Problems (1) Status post Anthony's procedure Assessment/Plan: As per surgery Pt tolerating diet Cont wound care Code(s): Z93.3 - COLOSTOMY STATUS (2) Anemia Assessment/Plan: Acute blood loss anemia H/H has remained stable Cont to monitor Code(s): D64.9 - ANEMIA, UNSPECIFIED (3) HTN (hypertension) Assessment/Plan: BP stable Cont norvasc/asa/metoprolol Code(s): I10 - ESSENTIAL (PRIMARY) HYPERTENSION Qualifiers: Hypertension type: essential hypertension Qualified Code(s): I10 - Essential (primary) hypertension (4) Hypothyroidism Assessment/Plan: Cont levothyroxine Code(s): E03.9 - HYPOTHYROIDISM, UNSPECIFIED Qualifiers: Hypothyroidism type: acquired Qualified Code(s): E03.9 - Hypothyroidism, unspecified (5) HLD (hyperlipidemia) Code(s): E78.5 - HYPERLIPIDEMIA, UNSPECIFIED
[2019-03-29] MEDS: LEVOTHYROXINE NA 25 MCG TABLET (FP) PO SCH (06:13)
[2019-03-29] MEDS ORDERED: PT OWN MED DRAWER 7, Y5N ONE ×3 (06:21→11:37)
[2019-03-29 06:23] LABS: BASO % 0.4 % (0-2.0); EOS % 2.5 % (0-4.5); HEMATOCRIT 26.1 % (32.4-45.2); HEMOGLOBIN 8.5 GM/dL (10.7-15.3); LYMPH % 24.7 % (8-40); MCH 27.9 pg (25.7-33.7); MCHC 32.7 g/dl (32.0-36.0); MEAN CELL VOLUME 85.3 fl (80-96); MEAN PLT VOLUME 7.9 fl (7.5-11.1); NEUT % 62.4 % (42.8-82.8); PLATELET COUNT 262 K/MM3 (134-434); RBC 3.06 M/mm3 (3.60-5.2); RDW 15.2 % (11.6-15.6); WHITE BLOOD COUNT 10.8 K/mm3 (4.0-10.0)
[2019-03-29] MEDS: oxyCODONE HCL 5 MG TABLET PO PRN ×2 (06:23→15:52)
[2019-03-29 06:25] LABS: ALBUMIN 2.3 g/dl (3.4-5.0); BILIRUBIN,TOTAL 0.4 mg/dL (0.2-1); BLOOD UREA NITROGEN 27.7 mg/dL (7-18); CALCIUM 8.6 mg/dL (8.5-10.1); CREATININE 1.8 mg/dL (0.55-1.3); MAGNESIUM 2.2 mg/dL (1.8-2.4); PHOSPHOROUS 5.7 mg/dL (2.5-4.9); POTASSIUM 4.3 mmol/L (3.5-5.1); TOT PROT 6.2 g/dl (6.4-8.2)
--- NOTE | 2019-03-29 08:48 | PN ---
Progress Note, Physician History of Present Illness: feeling better POD 6 from r hemicolectomy, closure of leigh's with protective loop ileostomy - Current Medication List Current Medications: Active Medications Alvimopan (Entereg Capsule (Restricted) -) 12 mg PO BID [facility] Stop: 03/30/19 22:01 Last Admin: 03/28/19 21:05 Dose: 12 mg Amlodipine Besylate (Norvasc -) 5 mg PO DAILY [facility] Last Admin: 03/28/19 10:20 Dose: 5 mg Aspirin (Ecotrin -) 81 mg PO DAILY [facility] Last Admin: 03/28/19 10:19 Dose: 81 mg Chlorhexidine Gluconate (Hibiclens For Decolonization -) 1 applic TP HS [facility] Last Admin: 03/28/19 21:05 Dose: 1 applic Diazepam (Valium -) 5 mg PO DAILY [facility] Last Admin: 03/28/19 10:20 Dose: 5 mg Enoxaparin Sodium (Lovenox -) 30 mg SQ BID [facility] Last Admin: 03/28/19 21:13 Dose: 30 mg Ipratropium [place] (Atrovent 0.02% Nebulizer -) 1 amp NEB Q6H PRN PRN Reason: SHORTNESS OF BREATH Stop: 04/03/19 21:57 Levothyroxine Sodium (Synthroid -) 25 mcg PO DAILY@0700 [facility] Last Admin: 03/29/19 06:13 Dose: 25 mcg Metoprolol Succinate (Toprol Xl -) 25 mg PO DAILY [facility] Last Admin: 03/28/19 10:19 Dose: 25 mg Ondansetron HCl (Zofran Injection) 4 mg IVPUSH Q6H PRN PRN Reason: NAUSEA Oxycodone HCl (Roxicodone -) 5 mg PO Q4H PRN PRN Reason: PAIN LEVEL 1-5 Last Admin: 03/28/19 12:37 Dose: 5 mg Oxycodone HCl (Roxicodone -) 10 mg PO Q6H PRN PRN Reason: PAIN LEVEL 7 - 10 Last Admin: 03/29/19 06:23 Dose: 10 mg Pantoprazole Sodium (Protonix -) 40 mg PO BID [facility] Last Admin: 03/28/19 21:13 Dose: 40 mg Sertraline HCl (Zoloft -) 50 mg PO DAILY [facility] Last Admin: 03/28/19 10:20 Dose: 50 mg Zolpidem Tartrate (Ambien -) 10 mg PO HS PRN PRN Reason: INSOMNIA Last Admin: 03/28/19 21:10 Dose: 10 mg - Objective Vital Signs: Vital Signs Temperature 98.3 F 03/29/19 06:00 Pulse Rate 99 H 03/29/19 06:00 Respiratory Rate 17 03/29/19 06:00 Blood Pressure 117/68 03/29/19 06:00 O2 Sat by Pulse Oximetry (%) 95 03/28/19 21:00 Labs: CBC, BMP 03/29/19 05:30 03/29/19 05:30 Problem List - Problems (1) Status post Anthony's procedure Code(s): Z93.3 - COLOSTOMY STATUS Assessment/Plan doing well Recommend transfer to floor Physical therapy Stoma nurse consultation There is a bridge supporting the ileostomy that I plann to remove POD 8-10 that will allow for a better seal of ostomy appliance once removed. DC planning for consideration for rehab facility
--- NOTE | 2019-03-29 09:05 | PN ---
Physical Exam: SUBJECTIVE: Patient seen and examined. pt offered no complaints. No fever overnight. OBJECTIVE: Vital Signs Period Temp Pulse Resp BP Sys/Andrews Pulse Ox Last 24 Hr 98.3 F-99.3 F 94-110 14-21 102-128/50-77 95-100 GENERAL: The patient is awake, alert, and fully oriented, in no acute distress. HEAD: Normal with no signs of trauma. EYES: PERRLA, EOMI. ENT: Nasal cannula in place, moist mucous membranes. LUNGS: Breath sounds equal, clear to auscultation bilaterally, no wheezes, no crackles, no accessory muscle use. HEART: S1,S2, no murmurs rubs or gallops appreciated. . ABDOMEN: Tender to palpation in all 4 quadrants of the abdomen. Normoactive bowel sounds. Dressing in place, ileostomy in place. ROGE drain in place. EXTREMITIES: 2+ pulses, warm, well-perfused, no edema. PSYCH: Normal mood, normal affect. SKIN: Warm, dry, surgical sites with clean dressing and ROGE drain with serosanguinous output. and ileostomy with liquid stool output Laboratory Results - last 24 hr 03/29/19 03/29/19 05:30 05:30 WBC 10.8 H RBC 3.06 L Hgb 8.5 L Hct 26.1 L MCV 85.3 MCH 27.9 MCHC 32.7 RDW 15.2 Plt Count 262 MPV 7.9 Absolute Neuts (auto) 6.8 Neutrophils % 62.4 Lymphocytes % 24.7 D Monocytes % 10.0 Eosinophils % 2.5 D Basophils % 0.4 Nucleated RBC % 0 Sodium 139 Potassium 4.3 Chloride 108 H Carbon Dioxide 23 Anion Gap 8 BUN 27.7 H Creatinine 1.8 H Est GFR (CKD-EPI)AfAm 31.14 Est GFR (CKD-EPI)NonAf 26.87 Random Glucose 106 Calcium 8.6 Phosphorus 5.7 H Magnesium 2.2 Total Bilirubin 0.4 AST 45 H ALT 69 H Alkaline Phosphatase 79 Total Protein 6.2 L Albumin 2.3 L Active Medications Generic Name Dose Route Start Last Admin Trade Name Freq PRN Reason Stop Dose Admin Alvimopan 12 mg 03/24/19 10:00 03/28/19 21:05 Entereg Capsule (Restricted) - PO 03/30/19 22:01 12 mg BID [facility] Administration Amlodipine Besylate 5 mg 03/25/19 10:00 03/28/19 10:20 Norvasc - PO 5 mg DAILY [facility] Administration Aspirin 81 mg 03/25/19 10:00 03/28/19 10:19 Ecotrin - PO 81 mg DAILY [facility] Administration Chlorhexidine Gluconate 1 applic 03/23/19 22:00 03/28/19 21:05 Hibiclens For Decolonization - TP 1 applic HS [facility] Administration Diazepam 5 mg 03/25/19 10:00 03/28/19 10:20 Valium - PO 5 mg DAILY [facility] Administration Enoxaparin Sodium 30 mg 03/24/19 10:00 03/28/19 21:13 Lovenox - SQ 30 mg BID [facility] Administration Ipratropium [place] 1 amp 03/27/19 21:57 Atrovent 0.02% Nebulizer - NEB 04/03/19 21:57 Q6H PRN SHORTNESS OF BREATH Levothyroxine Sodium 25 mcg 03/28/19 07:00 03/29/19 06:13 Synthroid - PO 25 mcg DAILY@0700 [facility] Administration Metoprolol Succinate 25 mg 03/27/19 11:00 03/28/19 10:19 Toprol Xl - PO 25 mg DAILY [facility] Administration Ondansetron HCl 4 mg 03/24/19 01:00 Zofran Injection IVPUSH Q6H PRN NAUSEA Oxycodone HCl 5 mg 03/27/19 10:57 03/28/19 12:37 Roxicodone - PO 5 mg Q4H PRN Administration PAIN LEVEL 1-5 Oxycodone HCl 10 mg 03/28/19 13:57 03/29/19 06:23 Roxicodone - PO 10 mg Q6H PRN Administration PAIN LEVEL 7 - 10 Pantoprazole Sodium 40 mg 03/25/19 22:00 03/28/19 21:13 Protonix - PO 40 mg BID [facility] Administration Sertraline HCl 50 mg 03/25/19 10:00 03/28/19 10:20 Zoloft - PO 50 mg DAILY [facility] Administration Zolpidem Tartrate 10 mg 03/25/19 22:00 03/28/19 21:10 Ambien - PO 10 mg HS PRN Administration INSOMNIA ASSESSMENT/PLAN: 78F PMH diverticulitis with multiple abscesses s/p Anthony procedure on 04/03/18 , CAD s/p qadruple cardiac bypass, HTN, HLD, hypothyroidism, GERD, anxiety/ depression, currently POD#6 s/p ex-lap, lysis of adhesions, 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 Neuro: -AAOX3 -Hx anxiety/depression -Home meds: sertaline, diazepam, zolpidem -Continue to monitor, no acute issues. 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 -ROGE drain continues to have output, ileostomy functional. -Continue protonix BID, zofran PRN, oxycodone -Surgery following : Physical therapy Stoma nurse consultation There is a bridge supporting the ileostomy that I plann to remove POD 8-10 that will allow for a better seal of ostomy appliance once removed. DC planning for consideration for rehab facility Renal: -Creatinine of 1.8 today -Electrolytes within normal limits today -D/C'ed [place], patient is ambulating, making urine. -Nephrology following, appreciate recs Endo: -Hx of hypothyroidism -Continue levothyroxine 25 mcg daily Heme/Onc: -H/H: 8.5/26.1 today -2 units given intra-op and 1 unit in ICU. -Continue to monitor -Lovenox 30 BID ID: -Monitoring off antibiotics -ID following, appreciate recs DVT: Lovenox F: Oral hydration E: Monitor CMP N: Regular diet Lines: Patient has peripheral IV access. ROGE and ileostomy placed on surgery day 03/23. Dispo : pending transfer to floors Visit type - Emergency Visit Emergency Visit: Yes ED Registration Date: 03/23/19 Care time: The patient presented to the Emergency Department on the above date and was hospitalized for further evaluation of their emergent condition. - New Patient This patient is new to me today: No - Critical Care Critical Care patient: Yes Total Critical Care Time (in minutes): 35 Critical Care Statement: The care of this patient involved high complexity decision making to prevent further life threatening deterioration of the patient 's condition and/or to evaluate & treat vital organ system(s) failure or risk of failure. ATTENDING PHYSICIAN STATEMENT I saw and evaluated the patient. I reviewed the resident's note and discussed the case with the resident. I agree with the resident's findings and plan as documented. SUBJECTIVE: OBJECTIVE: ASSESSMENT AND PLAN:
--- NOTE | 2019-03-29 10:55 | PATH ---
Surgical Pathology Report Patient Name: ZOIE GUTIERREZ Med. Rec. #: [id number] /Age/Gender: 1940 (Age: 78) / F Account: [id number] Location: [facility] MED/SURG Taken: 03/23/2019 Received: 03/24/2019 Reported: 03/29/2019 Physicians: Nishant Muse M.D. Specimen(s) Received A: RIGHT COLON B: EEA SIZER WITH ANASTOMOSIS OF COLON C: COLOSTOMY STOMA Clinical History Colon cancer Final Diagnosis A. COLON, RIGHT, COLECTOMY: MUCINOUS ADENOCARCINOMA, POORLY DIFFERENTIATED, ASSOCIATED WITH TUBULAR ADENOMA. TUMOR MEASURES 4.5 X 2.4 CM (GROSS MEASUREMENT). TUMOR LOCATED AT RIGHT COLON. TUMOR INVADES INTO THE MUSCULARIS PROPRIA. ADDITIONAL TWO (2) TUBULAR ADENOMAS IDENTIFIED. NO DEFINITIVE LYMPHOVASCULAR OR PERINEURAL INVASION IDENTIFIED. SURGICAL MARGINS ARE NEGATIVE FOR INVASIVE CARCINOMA (PROXIMAL, DISTAL, MESENTERIC); INVASIVE CARCINOMA IS 2.5 CM FROM CLOSEST MESENTERIC MARGIN (GROSS MEASUREMENT). TUBULAR ADENOMA PRESENT AT DISTAL MARGIN. CECUM, ILEUM, AND APPENDIX ARE UNINVOLVED BY TUMOR. ONE OF SEVENTEEN LYMPH NODES WITH ISOLATED TUMOR CELLS (ITC) HIGHLIGHTED BY CYTOKERATIN AE1/3 IMMUNOHISTOCHEMICAL STAIN, NO METASTATIC DEPOSIT >0.2 MM IDENTIFIED (0/17). OMENTUM WITH FOCAL FAT NECROSIS. AJCC TNM 8th EDITION PATHOLOGIC STAGE: pT2 pN0. SEE INVASIVE SUMMARY BELOW. SEE COMMENT. B. EEA SIZER WITH ANASTOMOSIS OF COLON, EXCISION: SEGMENTS OF COLON WITHOUT SIGNIFICANT PATHOLOGIC FINDINGS. SURGICAL DEVICE. MACROSCOPIC DIAGNOSIS. C. COLOSTOMY, EXCISION: ENTEROCUTANEOUS FISTULA WITH CHRONIC INFLAMMATION CONSISTENT WITH COLOSTOMY. Comment: Immunohistochemical stain performed and interpreted at [facility] show isolated tumor cells highlighted by AE1/3. No tumor deposits >0.2 mm identified; thus per current staging classified as N0. Chromogranin and synaptophysin immunohistochemical stains show rare staining in scattered tumor cells. Additional studies for Mismatch repair proteins (MMR) are pending and will be reported as an addendum. Positive and negative controls (internal if applicable) show appropriate results. Comments Colorectal Carcinoma :Surgical Pathology Cancer Case Summary (Based on AJCC TNM 8 th edition) Procedure _X_ Right colectomy Tumor Site _X_ Right (ascending) colon Tumor Size Greatest dimension (centimeters): 4.5 x 2.4 cm (gross measurement) Macroscopic Tumor Perforation _X_ Not identified Histologic Type _X_ Mucinous Adenocarcinoma Histologic Grade _X__ G3: Poorly differentiated Tumor Extension _X__ Tumor invades muscularis propria Margins Proximal Margin _X_ Uninvolved by invasive carcinoma Distal Margin _X_ Uninvolved by invasive carcinoma Radial or Mesenteric Margin _X_ Uninvolved by invasive carcinoma Treatment Effect _X_ No known presurgical therapy Lymphovascular Invasion _X_ Not identified Perineural Invasion _X_ Not identified Tumor Deposits _X_ Not identified Regional Lymph Nodes Lymph Node Examination Number of Lymph Nodes Involved: 1 lymph node with isolated tumor cells (ITC) highlighted by AE1/3 immunohistochemical stain. No metastatic deposit >0.2 mm identified. Number of Lymph Nodes Examined: 17 Pathologic Stage Classification (pTNM, AJCC 8th Edition) Primary Tumor (pT) _X__ pT2: Tumor invades the muscularis propria Regional Lymph Nodes (pN) _X__ pN0: No regional lymph node metastasis Electronically Signed Glory Costello M.D. Addendum Reported: 03/31/2019 Addendum Diagnosis Findings discussed with Dr. Paniagua, 03/30/19. Glory Costello M.D. Addendum Reported: 04/13/2019 Addendum Diagnosis MISMATCH REPAIR PROTEIN ANALYSIS performed and interpreted at [place], [place] ([id number]) shows the following: INTERPRETATION: No loss of nuclear expression of MMR proteins: low probability of microsatellite instability-high (MSI-H). Marker Result Description MLH-1 Expressed DNA Mismatch Repair Protein MSH-2 Expressed DNA Mismatch Repair Protein MSH-6 Expressed DNA Mismatch Repair Protein PMS2 Expressed DNA Mismatch Repair Protein Ranges and References for Mismatch Repair Protein (MMR) Expression by IHC Screening for Microsatellite Instability. hMLH-1, hMSH-2, hMSH-6 and PMS2 Expressed = Preserved DNA Mismatch Repair Function. hMLH-1, hMSH-2, hMSH-6 and PMS2 Not Expressed = Likely Deficient DNA Mismatch Repair Function. Known positive cells or tissues are employed with each test and examined to ensure positivity. Positive and negative internal controls, if present, react appropriately. See Integrated Oncology report for additional details. Glory Costello M.D. Gross Description A. Received in formalin labeled "right colon," is a 12.5 cm in length portion of terminal ileum with an attached 14 cm in length portion of cecum and right colon. The specimen displays 2 stapled mucosal margin as well as abundant attached pericolonic adipose tissue and omentum. The serosa is siddiqui-orellana and smooth. There is a 5 cm in length unremarkable vermiform appendix attached to the cecum. The mucosa displays a 4.5 x 2.4 cm sessile, polypoid mass in the right colon, 3 cm distal to the ileocecal valve. The mass invades into the muscularis. No invasion through the serosa is identified grossly. The mass is 2.5 cm from the mesenteric margin of resection and 8.5 cm from the distal mucosal margin of resection. There is a 0.4 cm in greatest dimension mucosal polyp 1 cm distal from the mass and an additional 0.8 cm in greatest dimension mucosal polyp 1 cm proximal to the distal mucosal margin. The remaining mucosa is siddiqui with normal folds. Sectioning of the pericolonic adipose tissue reveals multiple siddiqui lymph nodes, measuring up to 1.1 cm in greatest dimension. The omentum displays a focal 0.3 x 0.2 x 0.2 cm lesion. Contract Modeler sections are submitted in 26 cassettes as follows: 1-proximal mucosal margin; 2-distal mucosal margin; 3-shave of mesenteric margin; 4-appendix; 5-10-mass; 11-polyp near mass; 12-polyp near distal mucosal margin; 13-uninvolved ileum; 14-uninvolved right colon; 15-18-one bisected lymph node each; 19-22-one whole lymph node each; 23-24-three possible lymph nodes each; 25- three possible lymph nodes; 26-omentum lesion. B. Received in formalin labeled "EEA sizer with anastomosis," is a orellana metallic surgical device with 2 attached annular portions of bowel averaging 1.8 cm in diameter x 0.6 cm in length. The portions of bowel display blue suture material. Contract Modeler sections are submitted in 2 cassettes. C. Received in formalin labeled "colostomy," and a 5.4 x 5.0 cm siddiqui, ovoid portion of skin with a central os, consistent with a colostomy. The specimen displays a 3.5 cm in length attached portion of bowel with a stapled mucosal margin. Sectioning reveals unremarkable mucosa. A inside technical sales representative section of the colostomy site is submitted in one cassette. 03/25/2019 [facility]03/25/2019
--- NOTE | 2019-03-29 11:28 | PN ---
Teaching Attending Note Name of Resident: Urvashi Yung ATTENDING PHYSICIAN STATEMENT I saw and evaluated the patient. I reviewed the resident's note and discussed the case with the resident. I agree with the resident's findings and plan as documented. SUBJECTIVE: Patient seen and examined in the ICU. Awake and alert. Sinus tachycardia is better. Reports pain is 4/10. No CP or SOB. Tolerating PO Intake. Intake & Output 03/26/19 03/27/19 03/28/19 03/29/19 23:59 23:59 23:59 23:59 Intake Total 3240 1880 700 Output Total 3590 2180 1240 620 Balance -350 -300 -540 -620 Last Vital Signs Temp Pulse Resp BP Pulse Ox 99.0 F 95 H 21 H 122/70 95 03/29/19 10:00 03/29/19 10:00 03/29/19 10:00 03/29/19 10:00 03/28/19 21:00 Active Medications Alvimopan (Entereg Capsule (Restricted) -) 12 mg PO BID [facility] Stop: 03/30/19 22:01 Last Admin: 03/28/19 21:05 Dose: 12 mg Amlodipine Besylate (Norvasc -) 5 mg PO DAILY [facility] Last Admin: 03/28/19 10:20 Dose: 5 mg Aspirin (Ecotrin -) 81 mg PO DAILY [facility] Last Admin: 03/28/19 10:19 Dose: 81 mg Chlorhexidine Gluconate (Hibiclens For Decolonization -) 1 applic TP HS [facility] Last Admin: 03/28/19 21:05 Dose: 1 applic Diazepam (Valium -) 5 mg PO DAILY [facility] Last Admin: 03/28/19 10:20 Dose: 5 mg Enoxaparin Sodium (Lovenox -) 30 mg SQ BID [facility] Last Admin: 03/28/19 21:13 Dose: 30 mg Ipratropium [place] (Atrovent 0.02% Nebulizer -) 1 amp NEB Q6H PRN PRN Reason: SHORTNESS OF BREATH Stop: 04/03/19 21:57 Levothyroxine Sodium (Synthroid -) 25 mcg PO DAILY@0700 [facility] Last Admin: 03/29/19 06:13 Dose: 25 mcg Metoprolol Succinate (Toprol Xl -) 25 mg PO DAILY [facility] Last Admin: 03/28/19 10:19 Dose: 25 mg Ondansetron HCl (Zofran Injection) 4 mg IVPUSH Q6H PRN PRN Reason: NAUSEA Oxycodone HCl (Roxicodone -) 5 mg PO Q4H PRN PRN Reason: PAIN LEVEL 1-5 Last Admin: 03/28/19 12:37 Dose: 5 mg Oxycodone HCl (Roxicodone -) 10 mg PO Q6H PRN PRN Reason: PAIN LEVEL 7 - 10 Last Admin: 03/29/19 06:23 Dose: 10 mg Pantoprazole Sodium (Protonix -) 40 mg PO BID [facility] Last Admin: 03/28/19 21:13 Dose: 40 mg Sertraline HCl (Zoloft -) 50 mg PO DAILY [facility] Last Admin: 03/28/19 10:20 Dose: 50 mg Zolpidem Tartrate (Ambien -) 10 mg PO HS PRN PRN Reason: INSOMNIA Last Admin: 03/28/19 21:10 Dose: 10 mg Gen: Awake and alert Heart: RRR Lung: diminished bases Abd: soft, dressings clean, +ostomy pink, +ROGE minimal output Ext: no edema neuro: non-focal Laboratory Results - last 24 hr 03/29/19 03/29/19 05:30 05:30 WBC 10.8 H RBC 3.06 L Hgb 8.5 L Hct 26.1 L MCV 85.3 MCH 27.9 MCHC 32.7 RDW 15.2 Plt Count 262 MPV 7.9 Absolute Neuts (auto) 6.8 Neutrophils % 62.4 Lymphocytes % 24.7 D Monocytes % 10.0 Eosinophils % 2.5 D Basophils % 0.4 Nucleated RBC % 0 Sodium 139 Potassium 4.3 Chloride 108 H Carbon Dioxide 23 Anion Gap 8 BUN 27.7 H Creatinine 1.8 H Est GFR (CKD-EPI)AfAm 31.14 Est GFR (CKD-EPI)NonAf 26.87 Random Glucose 106 Calcium 8.6 Phosphorus 5.7 H Magnesium 2.2 Total Bilirubin 0.4 AST 45 H ALT 69 H Alkaline Phosphatase 79 Total Protein 6.2 L Albumin 2.3 L ASSESSMENT AND PLAN: POD #6 S/P Ex-lap/SOPHIE/right hemicolectomy with primary anastamosis/colostomy closure with colo-rectal anastamosis/cecal tumor resection/loop ileostomy Acute Blood Loss Anemia CAD s/p CABG HTN Hyperlipidemia Hypothyroidism CKD Anxiety/Depression Diverticulitis S/P Mi 04/2018 - Pain control - Incentive spirometry - OOB to chair - monitor drain, ostomy output - monitor urine output, creatinine - monitor lytes - PO per surgery - OOB as tolerated - Floor Dr Kim
[2019-03-29] MEDS: ALVIMOPAN 12 MG CAP PO SCH (11:40)
[2019-03-29] MEDS: amLODIPine BESYLATE 5 MG TABLET (FP) PO SCH (11:40)
[2019-03-29] MEDS: ASPIRIN COATED 81 MG TABLET.EC PO SCH (11:40)
[2019-03-29] MEDS: ENOXAPARIN NA (PORCINE) 30 MG/0.3 ML DISP.SYRIN SQ SCH ×2 (11:40→22:43)
[2019-03-29] MEDS: diazePAM 5 MG TABLET PO SCH (11:41)
[2019-03-29] MEDS: metoPROLOL SUCCINATE 25 MG TAB.SR.24H (FP) PO SCH (11:41)
[2019-03-29] MEDS: SERTRALINE HCL 50 MG TABLET (FP) PO SCH (11:41)
[2019-03-29] MEDS: PANTOPRAZOLE 40 MG TABLET PO SCH ×2 (11:41→22:44)
--- NOTE | 2019-03-29 13:03 | PN ---
Progress Note, Physician History of Present Illness: stable improving - Current Medication List Current Medications: Active Medications Alvimopan (Entereg Capsule (Restricted) -) 12 mg PO BID [facility] Stop: 03/30/19 22:01 Last Admin: 03/29/19 11:40 Dose: 12 mg Amlodipine Besylate (Norvasc -) 5 mg PO DAILY [facility] Last Admin: 03/29/19 11:40 Dose: 5 mg Aspirin (Ecotrin -) 81 mg PO DAILY [facility] Last Admin: 03/29/19 11:40 Dose: 81 mg Chlorhexidine Gluconate (Hibiclens For Decolonization -) 1 applic TP HS [facility] Last Admin: 03/28/19 21:05 Dose: 1 applic Diazepam (Valium -) 5 mg PO DAILY [facility] Last Admin: 03/29/19 11:41 Dose: 5 mg Enoxaparin Sodium (Lovenox -) 30 mg SQ BID [facility] Last Admin: 03/29/19 11:40 Dose: 30 mg Ipratropium [place] (Atrovent 0.02% Nebulizer -) 1 amp NEB Q6H PRN PRN Reason: SHORTNESS OF BREATH Stop: 04/03/19 21:57 Levothyroxine Sodium (Synthroid -) 25 mcg PO DAILY@0700 [facility] Last Admin: 03/29/19 06:13 Dose: 25 mcg Metoprolol Succinate (Toprol Xl -) 25 mg PO DAILY [facility] Last Admin: 03/29/19 11:41 Dose: 25 mg Ondansetron HCl (Zofran Injection) 4 mg IVPUSH Q6H PRN PRN Reason: NAUSEA Oxycodone HCl (Roxicodone -) 5 mg PO Q4H PRN PRN Reason: PAIN LEVEL 1-5 Last Admin: 03/28/19 12:37 Dose: 5 mg Oxycodone HCl (Roxicodone -) 10 mg PO Q6H PRN PRN Reason: PAIN LEVEL 7 - 10 Last Admin: 03/29/19 06:23 Dose: 10 mg Pantoprazole Sodium (Protonix -) 40 mg PO BID [facility] Last Admin: 03/29/19 11:41 Dose: 40 mg Sertraline HCl (Zoloft -) 50 mg PO DAILY [facility] Last Admin: 03/29/19 11:41 Dose: 50 mg Zolpidem Tartrate (Ambien -) 10 mg PO HS PRN PRN Reason: INSOMNIA Last Admin: 03/28/19 21:10 Dose: 10 mg - Objective Vital Signs: Vital Signs Temperature 99.0 F 03/29/19 10:00 Pulse Rate 95 H 03/29/19 10:00 Respiratory Rate 21 H 03/29/19 10:00 Blood Pressure 122/70 03/29/19 10:00 O2 Sat by Pulse Oximetry (%) 95 03/29/19 09:00 Constitutional: Yes: No Distress, Calm Cardiovascular: Yes: S1, S2 Respiratory: Yes: Regular, CTA Bilaterally Gastrointestinal: Yes: Normal Bowel Sounds, Soft Musculoskeletal: Yes: WNL Extremities: Yes: WNL Neurological: Yes: Alert, Oriented Psychiatric: Yes: Alert, Oriented Labs: CBC, BMP 03/29/19 05:30 03/29/19 05:30 Assessment/Plan POD #2 s/p ex-lap/SOPHIE/right hemicolectomy with primary anastamosis/colostomy closure with colo-rectal anastamosis/cecal tumor resection/loop ileostomy Acute Blood Loss Anemia CAD s/p CABG HTN Hyperlipidemia Hypothyroidism CKD Anxiety/Depression Diverticulitis S/P Hartmans 04/2018 plan continue current mgmt nutrition rest as per the team improving
--- NOTE | 2019-03-29 19:48 | PN ---
Progress Note, Physician History of Present Illness: Pt seen and examined at bedside. She is awake and alert. She denies shortness of breath. - Current Medication List Current Medications: Active Medications Amlodipine Besylate (Norvasc -) 5 mg PO DAILY [facility] Last Admin: 03/29/19 11:40 Dose: 5 mg Aspirin (Ecotrin -) 81 mg PO DAILY [facility] Last Admin: 03/29/19 11:40 Dose: 81 mg Chlorhexidine Gluconate (Hibiclens For Decolonization -) 1 applic TP HS [facility] Last Admin: 03/28/19 21:05 Dose: 1 applic Diazepam (Valium -) 5 mg PO DAILY [facility] Last Admin: 03/29/19 11:41 Dose: 5 mg Enoxaparin Sodium (Lovenox -) 30 mg SQ BID [facility] Last Admin: 03/29/19 11:40 Dose: 30 mg Ipratropium [place] (Atrovent 0.02% Nebulizer -) 1 amp NEB Q6H PRN PRN Reason: SHORTNESS OF BREATH Stop: 04/03/19 21:57 Levothyroxine Sodium (Synthroid -) 25 mcg PO DAILY@0700 [facility] Last Admin: 03/29/19 06:13 Dose: 25 mcg Metoprolol Succinate (Toprol Xl -) 25 mg PO DAILY [facility] Last Admin: 03/29/19 11:41 Dose: 25 mg Ondansetron HCl (Zofran Injection) 4 mg IVPUSH Q6H PRN PRN Reason: NAUSEA Oxycodone HCl (Roxicodone -) 5 mg PO Q4H PRN PRN Reason: PAIN LEVEL 1-5 Last Admin: 03/28/19 12:37 Dose: 5 mg Oxycodone HCl (Roxicodone -) 10 mg PO Q6H PRN PRN Reason: PAIN LEVEL 7 - 10 Last Admin: 03/29/19 15:52 Dose: 10 mg Pantoprazole Sodium (Protonix -) 40 mg PO BID [facility] Last Admin: 03/29/19 11:41 Dose: 40 mg Sertraline HCl (Zoloft -) 50 mg PO DAILY [facility] Last Admin: 03/29/19 11:41 Dose: 50 mg Zolpidem Tartrate (Ambien -) 10 mg PO HS PRN PRN Reason: INSOMNIA Last Admin: 03/28/19 21:10 Dose: 10 mg - Objective Vital Signs: Vital Signs Temperature 98.4 F 03/29/19 17:00 Pulse Rate 103 H 03/29/19 17:00 Respiratory Rate 21 H 03/29/19 17:00 Blood Pressure 137/63 03/29/19 17:00 O2 Sat by Pulse Oximetry (%) 95 03/29/19 09:00 Constitutional: Yes: Calm Eyes: Yes: Conjunctiva Clear HENT: Yes: Atraumatic Neck: Yes: Supple Cardiovascular: Yes: S1, S2 Respiratory: Yes: CTA Bilaterally Gastrointestinal: Yes: Soft, Other (dressing in place) Genitourinary: Yes: [place] Present Musculoskeletal: Yes: WNL Edema: No Neurological: Yes: Oriented Psychiatric: Yes: Oriented Labs: CBC, BMP 03/29/19 05:30 03/29/19 05:30 Assessment/Plan Current Medications Generic Name Dose Route Start Last Admin Trade Name Freq PRN Reason Stop Dose Admin Amlodipine Besylate 5 mg 03/25/19 10:00 03/29/19 11:40 Norvasc - PO 5 mg DAILY [facility] Administration Aspirin 81 mg 03/25/19 10:00 03/29/19 11:40 Ecotrin - PO 81 mg DAILY [facility] Administration Chlorhexidine Gluconate 1 applic 03/23/19 22:00 03/28/19 21:05 Hibiclens For Decolonization - TP 1 applic HS [facility] Administration Diazepam 5 mg 03/25/19 10:00 03/29/19 11:41 Valium - PO 5 mg DAILY [facility] Administration Enoxaparin Sodium 30 mg 03/24/19 10:00 03/29/19 11:40 Lovenox - SQ 30 mg BID [facility] Administration Ipratropium [place] 1 amp 03/27/19 21:57 Atrovent 0.02% Nebulizer - NEB 04/03/19 21:57 Q6H PRN SHORTNESS OF BREATH Levothyroxine Sodium 25 mcg 03/28/19 07:00 03/29/19 06:13 Synthroid - PO 25 mcg DAILY@0700 [facility]ANE Administration Metoprolol Succinate 25 mg 03/27/19 11:00 03/29/19 11:41 Toprol Xl - PO 25 mg DAILY [facility] Administration Ondansetron HCl 4 mg 03/24/19 01:00 Zofran Injection IVPUSH Q6H PRN NAUSEA Oxycodone HCl 5 mg 03/27/19 10:57 03/28/19 12:37 Roxicodone - PO 5 mg Q4H PRN Administration PAIN LEVEL 1-5 Oxycodone HCl 10 mg 03/28/19 13:57 03/29/19 15:52 Roxicodone - PO 10 mg Q6H PRN Administration PAIN LEVEL 7 - 10 Pantoprazole Sodium 40 mg 03/25/19 22:00 03/29/19 11:41 Protonix - PO 40 mg BID [facility] Administration Sertraline HCl 50 mg 03/25/19 10:00 03/29/19 11:41 Zoloft - PO 50 mg DAILY [facility] Administration Zolpidem Tartrate 10 mg 03/25/19 22:00 03/28/19 21:10 Ambien - PO 10 mg HS PRN Administration INSOMNIA Impression 1. CKD 2. hyperkalemia 3. abdominal pain 4. hx of perforated diverticula 5. acidosis 6. hld 7. CAD 8. HTN 9. anxiety 10. 1.3 cm left adrenal nodule 11. 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 hx elevated light chains Plan - restart fluids, 1/2 ns - repeat labs in am - safety person higher today - encourage po intake - monitor lytes
[2019-03-29] MEDS: CHLORHEXIDINE GLUCONATE 4% CLEANSER FOR DECOLONIZATION TP SCH (22:43)
--- NOTE | 2019-03-29 23:06 | PN ---
Progress Note, Physician History of Present Illness: No new complaints - Current Medication List Current Medications: Active Medications Amlodipine Besylate (Norvasc -) 5 mg PO DAILY [facility] Last Admin: 03/29/19 11:40 Dose: 5 mg Aspirin (Ecotrin -) 81 mg PO DAILY [facility] Last Admin: 03/29/19 11:40 Dose: 81 mg Chlorhexidine Gluconate (Hibiclens For Decolonization -) 1 applic TP HS [facility] Last Admin: 03/29/19 22:43 Dose: Not Given Diazepam (Valium -) 5 mg PO DAILY [facility] Last Admin: 03/29/19 11:41 Dose: 5 mg Enoxaparin Sodium (Lovenox -) 30 mg SQ BID [facility] Last Admin: 03/29/19 22:43 Dose: 30 mg Sodium Chloride (1/2 Normal Saline) 1,000 mls @ 75 mls/hr IV ASDIR [facility] Ipratropium [place] (Atrovent 0.02% Nebulizer -) 1 amp NEB Q6H PRN PRN Reason: SHORTNESS OF BREATH Stop: 04/03/19 21:57 Levothyroxine Sodium (Synthroid -) 25 mcg PO DAILY@0700 [facility] Last Admin: 03/29/19 06:13 Dose: 25 mcg Metoprolol Succinate (Toprol Xl -) 25 mg PO DAILY [facility] Last Admin: 03/29/19 11:41 Dose: 25 mg Ondansetron HCl (Zofran Injection) 4 mg IVPUSH Q6H PRN PRN Reason: NAUSEA Oxycodone HCl (Roxicodone -) 5 mg PO Q4H PRN PRN Reason: PAIN LEVEL 1-5 Last Admin: 03/28/19 12:37 Dose: 5 mg Oxycodone HCl (Roxicodone -) 10 mg PO Q6H PRN PRN Reason: PAIN LEVEL 7 - 10 Last Admin: 03/29/19 15:52 Dose: 10 mg Pantoprazole Sodium (Protonix -) 40 mg PO BID [facility] Last Admin: 03/29/19 22:44 Dose: 40 mg Sertraline HCl (Zoloft -) 50 mg PO DAILY [facility] Last Admin: 03/29/19 11:41 Dose: 50 mg Zolpidem Tartrate (Ambien -) 10 mg PO HS PRN PRN Reason: INSOMNIA Last Admin: 03/28/19 21:10 Dose: 10 mg - Objective Vital Signs: Vital Signs Temperature 98.4 F 03/29/19 17:00 Pulse Rate 103 H 03/29/19 17:00 Respiratory Rate 21 H 03/29/19 17:00 Blood Pressure 137/63 03/29/19 17:00 O2 Sat by Pulse Oximetry (%) 95 03/29/19 09:00 Neck: Yes: WNL, Supple Cardiovascular: Yes: WNL, Regular Rate and Rhythm Respiratory: Yes: WNL, Regular, CTA Bilaterally Gastrointestinal: Yes: Normal Bowel Sounds, Soft, Other ((+) ileostomy) Labs: CBC, BMP 03/29/19 05:30 03/29/19 05:30 Problem List - Problems (1) Status post Anthony's procedure Assessment/Plan: Pt tolerating diet Cont wound care Code(s): Z93.3 - COLOSTOMY STATUS (2) Anemia Assessment/Plan: Acute blood loss anemia H/H has remained stable Cont to monitor Code(s): D64.9 - ANEMIA, UNSPECIFIED (3) HTN (hypertension) Assessment/Plan: BP stable Cont norvasc/asa/metoprolol Code(s): I10 - ESSENTIAL (PRIMARY) HYPERTENSION Qualifiers: Hypertension type: essential hypertension Qualified Code(s): I10 - Essential (primary) hypertension (4) Hypothyroidism Assessment/Plan: Cont levothyroxine Code(s): E03.9 - HYPOTHYROIDISM, UNSPECIFIED Qualifiers: Hypothyroidism type: acquired Qualified Code(s): E03.9 - Hypothyroidism, unspecified (5) HLD (hyperlipidemia) Code(s): E78.5 - HYPERLIPIDEMIA, UNSPECIFIED
[2019-03-30] MEDS: LEVOTHYROXINE NA 25 MCG TABLET (FP) PO SCH (06:45)
--- NOTE | 2019-03-30 07:54 | PN ---
Progress Note (short form) - Note Progress Note: 78 year old female s/p Right hemicolectomy, Anthony's Reversal, repair of parastomal hernia, and loop ileostomy POD# 7 seen and examined at bedside. States that she is tolerating regular diet. Denies nausea, vomiting, or other complaints. CBC, BMP 03/29/19 05:30 03/29/19 05:30 Intake & Output ROGE (50cc/24 hours) Ileostomy (900cc/24 hours) 03/27/19 03/28/19 03/29/19 03/30/19 23:59 23:59 23:59 23:59 Intake Total 1880 700 750 Output Total 2180 1240 940 10 Balance -300 -540 -190 -10 Last Vital Signs Temp Pulse Resp BP Pulse Ox 98.6 F 88 20 120/58 L 95 03/30/19 02:20 03/30/19 06:40 03/30/19 06:40 03/30/19 06:40 03/29/19 09:00 General: Well developed, well nourished, female in no acute distress. Abdomen: Soft, mild incisional tenderness to palpation, ROGE with sanguineous fluid, ostomy pink and viable with stool in bag Assessment and Plan: 78 year old female s/p Right hemicolectomy, Anthony's Reversal, repair of parastomal hernia, and loop ileostomy POD# 7 - Continue Current Medical Management - Continue Daily Wound Care and dressing changes - Continue Regular diet
[2019-03-30 08:37] LABS: BASO % 0.9 % (0-2.0); EOS % 2.6 % (0-4.5); HEMATOCRIT 26.5 % (32.4-45.2); HEMOGLOBIN 8.7 GM/dL (10.7-15.3); LYMPH % 25.3 % (8-40); MCH 28.2 pg (25.7-33.7); MCHC 32.8 g/dl (32.0-36.0); MEAN CELL VOLUME 86.1 fl (80-96); MEAN PLT VOLUME 8.3 fl (7.5-11.1); MONO % 10.6 % (3.8-10.2); NEUT % 60.6 % (42.8-82.8); PLATELET COUNT 265 K/MM3 (134-434); RBC 3.08 M/mm3 (3.60-5.2); RDW 15.3 % (11.6-15.6); WHITE BLOOD COUNT 10.2 K/mm3 (4.0-10.0)
[2019-03-30 09:02] LABS: ALBUMIN 2.4 g/dl (3.4-5.0); BILIRUBIN,TOTAL 0.4 mg/dL (0.2-1); CALCIUM 8.5 mg/dL (8.5-10.1); POTASSIUM 4.6 mmol/L (3.5-5.1); TOT PROT 6.3 g/dl (6.4-8.2)
--- NOTE | 2019-03-30 09:23 | PN ---
Progress Note, Physician History of Present Illness: stable no new issues doing well - Current Medication List Current Medications: Active Medications Amlodipine Besylate (Norvasc -) 5 mg PO DAILY [facility] Last Admin: 03/29/19 11:40 Dose: 5 mg Aspirin (Ecotrin -) 81 mg PO DAILY [facility] Last Admin: 03/29/19 11:40 Dose: 81 mg Chlorhexidine Gluconate (Hibiclens For Decolonization -) 1 applic TP HS [facility] Last Admin: 03/29/19 22:43 Dose: Not Given Diazepam (Valium -) 5 mg PO DAILY [facility] Last Admin: 03/29/19 11:41 Dose: 5 mg Enoxaparin Sodium (Lovenox -) 30 mg SQ BID [facility] Last Admin: 03/29/19 22:43 Dose: 30 mg Sodium Chloride (1/2 Normal Saline) 1,000 mls @ 75 mls/hr IV ASDIR [facility] Ipratropium [place] (Atrovent 0.02% Nebulizer -) 1 amp NEB Q6H PRN PRN Reason: SHORTNESS OF BREATH Stop: 04/03/19 21:57 Levothyroxine Sodium (Synthroid -) 25 mcg PO DAILY@0700 [facility] Last Admin: 03/30/19 06:45 Dose: 25 mcg Metoprolol Succinate (Toprol Xl -) 25 mg PO DAILY [facility] Last Admin: 03/29/19 11:41 Dose: 25 mg Ondansetron HCl (Zofran Injection) 4 mg IVPUSH Q6H PRN PRN Reason: NAUSEA Oxycodone HCl (Roxicodone -) 5 mg PO Q4H PRN PRN Reason: PAIN LEVEL 1-5 Last Admin: 03/28/19 12:37 Dose: 5 mg Oxycodone HCl (Roxicodone -) 10 mg PO Q6H PRN PRN Reason: PAIN LEVEL 7 - 10 Last Admin: 03/29/19 15:52 Dose: 10 mg Pantoprazole Sodium (Protonix -) 40 mg PO BID [facility] Last Admin: 03/29/19 22:44 Dose: 40 mg Sertraline HCl (Zoloft -) 50 mg PO DAILY [facility] Last Admin: 03/29/19 11:41 Dose: 50 mg Zolpidem Tartrate (Ambien -) 10 mg PO HS PRN PRN Reason: INSOMNIA Last Admin: 03/28/19 21:10 Dose: 10 mg - Objective Vital Signs: Vital Signs Temperature 98.6 F 03/30/19 02:20 Pulse Rate 88 03/30/19 06:40 Respiratory Rate 20 03/30/19 06:40 Blood Pressure 120/58 L 03/30/19 06:40 O2 Sat by Pulse Oximetry (%) 95 03/29/19 09:00 Constitutional: Yes: No Distress, Calm Cardiovascular: Yes: S1, S2 Respiratory: Yes: Regular, CTA Bilaterally Gastrointestinal: Yes: Normal Bowel Sounds, Soft Musculoskeletal: Yes: WNL Extremities: Yes: WNL Neurological: Yes: Alert, Oriented Psychiatric: Yes: Alert, Oriented Labs: CBC, BMP 03/30/19 07:40 03/30/19 07:40 Assessment/Plan POD #2 s/p ex-lap/SOPHIE/right hemicolectomy with primary anastamosis/colostomy closure with colo-rectal anastamosis/cecal tumor resection/loop ileostomy Acute Blood Loss Anemia CAD s/p CABG HTN Hyperlipidemia Hypothyroidism CKD Anxiety/Depression Diverticulitis S/P Hartmans 04/2018 plan continue current mgmt nutrition rest as per the team improving
[2019-03-30] MEDS: SERTRALINE HCL 50 MG TABLET (FP) PO SCH (10:05)
[2019-03-30] MEDS: ASPIRIN COATED 81 MG TABLET.EC PO SCH (10:06)
[2019-03-30] MEDS: metoPROLOL SUCCINATE 25 MG TAB.SR.24H (FP) PO SCH (10:07)
[2019-03-30] MEDS: amLODIPine BESYLATE 5 MG TABLET (FP) PO SCH (10:07)
[2019-03-30] MEDS: PANTOPRAZOLE 40 MG TABLET PO SCH ×2 (10:08→21:29)
[2019-03-30] MEDS: diazePAM 5 MG TABLET PO SCH (10:08)
[2019-03-30] MEDS: oxyCODONE HCL 5 MG TABLET PO PRN ×2 (10:10→22:12)
[2019-03-30] MEDS: ENOXAPARIN NA (PORCINE) 30 MG/0.3 ML DISP.SYRIN SQ SCH ×2 (10:11→21:29)
--- NOTE | 2019-03-30 11:20 | PN ---
Progress Note, Physician History of Present Illness: Pt seen and examined at bedside. She is awake and alert. She denies shortness of breath. - Current Medication List Current Medications: Active Medications Amlodipine Besylate (Norvasc -) 5 mg PO DAILY [facility] Last Admin: 03/30/19 10:07 Dose: 5 mg Aspirin (Ecotrin -) 81 mg PO DAILY [facility] Last Admin: 03/30/19 10:06 Dose: 81 mg Chlorhexidine Gluconate (Hibiclens For Decolonization -) 1 applic TP HS [facility] Last Admin: 03/29/19 22:43 Dose: Not Given Diazepam (Valium -) 5 mg PO DAILY [facility] Last Admin: 03/30/19 10:08 Dose: 5 mg Enoxaparin Sodium (Lovenox -) 30 mg SQ BID [facility] Last Admin: 03/30/19 10:11 Dose: 30 mg Sodium Chloride (1/2 Normal Saline) 1,000 mls @ 75 mls/hr IV ASDIR [facility] Ipratropium [place] (Atrovent 0.02% Nebulizer -) 1 amp NEB Q6H PRN PRN Reason: SHORTNESS OF BREATH Stop: 04/03/19 21:57 Levothyroxine Sodium (Synthroid -) 25 mcg PO DAILY@0700 [facility] Last Admin: 03/30/19 06:45 Dose: 25 mcg Metoprolol Succinate (Toprol Xl -) 25 mg PO DAILY [facility] Last Admin: 03/30/19 10:07 Dose: 25 mg Ondansetron HCl (Zofran Injection) 4 mg IVPUSH Q6H PRN PRN Reason: NAUSEA Oxycodone HCl (Roxicodone -) 5 mg PO Q4H PRN PRN Reason: PAIN LEVEL 1-5 Last Admin: 03/28/19 12:37 Dose: 5 mg Oxycodone HCl (Roxicodone -) 10 mg PO Q6H PRN PRN Reason: PAIN LEVEL 7 - 10 Last Admin: 03/30/19 10:10 Dose: 10 mg Pantoprazole Sodium (Protonix -) 40 mg PO BID [facility] Last Admin: 03/30/19 10:08 Dose: 40 mg Sertraline HCl (Zoloft -) 50 mg PO DAILY [facility] Last Admin: 03/30/19 10:05 Dose: 50 mg Zolpidem Tartrate (Ambien -) 10 mg PO HS PRN PRN Reason: INSOMNIA Last Admin: 03/28/19 21:10 Dose: 10 mg - Objective Vital Signs: Vital Signs Temperature 98.6 F 03/30/19 02:20 Pulse Rate 88 03/30/19 06:40 Respiratory Rate 03/30/19 06:40 Blood Pressure 120/58 L 03/30/19 06:40 O2 Sat by Pulse Oximetry (%) 95 03/29/19 09:00 Constitutional: Yes: Calm Eyes: Yes: Conjunctiva Clear HENT: Yes: Atraumatic Neck: Yes: Supple Cardiovascular: Yes: S1, S2 Respiratory: Yes: CTA Bilaterally Gastrointestinal: Yes: Other (dressing in place) Genitourinary: Yes: WNL Musculoskeletal: Yes: WNL Edema: No Neurological: Yes: Oriented Psychiatric: Yes: Oriented Labs: CBC, BMP 03/30/19 07:40 03/30/19 07:40 Problem List - Problems (1) MARKIE (acute kidney injury) Code(s): N17.9 - ACUTE KIDNEY FAILURE, UNSPECIFIED Assessment/Plan Current Medications Generic Name Dose Route Start Last Admin Trade Name Freq PRN Reason Stop Dose Admin Amlodipine Besylate 5 mg 03/25/19 10:00 03/30/19 10:07 Norvasc - PO 5 mg DAILY [facility] Administration Aspirin 81 mg 03/25/19 10:00 03/30/19 10:06 Ecotrin - PO 81 mg DAILY [facility]ANE Administration Chlorhexidine Gluconate 1 applic 03/23/19 22:00 03/29/19 22:43 Hibiclens For Decolonization - TP Not Given HS MARY JANE Diazepam 5 mg 03/25/19 10:00 03/30/19 10:08 Valium - PO 5 mg DAILY [facility] Administration Enoxaparin Sodium 30 mg 03/24/19 10:00 03/30/19 10:11 Lovenox - SQ 30 mg BID [facility]ANE Administration Sodium Chloride 1,000 mls @ 75 mls/hr 03/29/19 20:00 1/2 Normal Saline IV ASDIR [facility] Ipratropium [place] 1 amp 03/27/19 21:57 Atrovent 0.02% Nebulizer - NEB 04/03/19 21:57 Q6H PRN SHORTNESS OF BREATH Levothyroxine Sodium 25 mcg 03/28/19 07:00 03/30/19 06:45 Synthroid - PO 25 mcg DAILY@0700 [facility] Administration Metoprolol Succinate 25 mg 03/27/19 11:00 03/30/19 10:07 Toprol Xl - PO 25 mg DAILY [facility] Administration Ondansetron HCl 4 mg 03/24/19 01:00 Zofran Injection IVPUSH Q6H PRN NAUSEA Oxycodone HCl 5 mg 03/27/19 10:57 03/28/19 12:37 Roxicodone - PO 5 mg Q4H PRN Administration PAIN LEVEL 1-5 Oxycodone HCl 10 mg 03/28/19 13:57 03/30/19 10:10 Roxicodone - PO 10 mg Q6H PRN Administration PAIN LEVEL 7 - 10 Pantoprazole Sodium 40 mg 03/25/19 22:00 03/30/19 10:08 Protonix - PO 40 mg BID [facility] Administration Sertraline HCl 50 mg 03/25/19 10:00 03/30/19 10:05 Zoloft - PO 50 mg DAILY [facility] Administration Zolpidem Tartrate 10 mg 03/25/19 22:00 03/28/19 21:10 Ambien - PO 10 mg HS PRN Administration INSOMNIA Impression 1. CKD 2. hyperkalemia 3. abdominal pain 4. hx of perforated diverticula 5. acidosis 6. hld 7. CAD 8. HTN 9. anxiety 10. 1.3 cm left adrenal nodule 11. 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 hx elevated light chains Plan - please start fluids, order has been placed - repeat labs in am - monitor bp - potassium stable
[2019-03-30] MEDS ORDERED: IPRATROPIUM BR 0.02% 0.5 MG/2.5 ML VIAL.NEB. NEB PRN (16:21)
[2019-03-30] MEDS ORDERED: ONDANSETRON 4 MG/2 ML VIAL IVPUSH PRN (16:21)
[2019-03-30] MEDS: SODIUM CHLORIDE 0.45% 1,000 ML IV SCH ×2 (17:34→21:29)
[2019-03-30] MEDS: ZOLPIDEM TARTRATE 5 MG TABLET PO PRN (22:12)
--- NOTE | 2019-03-30 23:28 | PN ---
Progress Note, Physician - Current Medication List Current Medications: Active Medications Amlodipine Besylate (Norvasc -) 5 mg PO DAILY [facility] Aspirin (Ecotrin -) 81 mg PO DAILY [facility] Diazepam (Valium -) 5 mg PO DAILY [facility] Enoxaparin Sodium (Lovenox -) 30 mg SQ BID [facility] Last Admin: 03/30/19 21:29 Dose: 30 mg Sodium Chloride (1/2 Normal Saline) 1,000 mls @ 75 mls/hr IV ASDIR [facility] Last Admin: 03/30/19 21:29 Dose: Not Given Ipratropium [place] (Atrovent 0.02% Nebulizer -) 1 amp NEB Q6H PRN PRN Reason: SHORTNESS OF BREATH Stop: 04/03/19 21:57 Levothyroxine Sodium (Synthroid -) 25 mcg PO DAILY@0700 [facility] Metoprolol Succinate (Toprol Xl -) 25 mg PO DAILY [facility] Ondansetron HCl (Zofran Injection) 4 mg IVPUSH Q6H PRN PRN Reason: NAUSEA Oxycodone HCl (Roxicodone -) 5 mg PO Q4H PRN PRN Reason: PAIN LEVEL 1-5 Oxycodone HCl (Roxicodone -) 10 mg PO Q6H PRN PRN Reason: PAIN LEVEL 7 - 10 Last Admin: 03/30/19 22:12 Dose: 10 mg Pantoprazole Sodium (Protonix -) 40 mg PO BID [facility] Last Admin: 03/30/19 21:29 Dose: 40 mg Sertraline HCl (Zoloft -) 50 mg PO DAILY [facility] Zolpidem Tartrate (Ambien -) 10 mg PO HS PRN PRN Reason: INSOMNIA Last Admin: 03/30/19 22:12 Dose: 10 mg - Objective Vital Signs: Vital Signs Temperature 100.6 F H 03/30/19 22:00 Pulse Rate 98 H 03/30/19 22:00 Respiratory Rate 20 03/30/19 22:00 Blood Pressure 131/63 03/30/19 22:00 O2 Sat by Pulse Oximetry (%) 95 03/30/19 21:00 Labs: CBC, BMP 03/30/19 07:40 03/30/19 07:40 Problem List - Problems (1) Status post Anthony's procedure Code(s): Z93.3 - COLOSTOMY STATUS (2) Anemia Code(s): D64.9 - ANEMIA, UNSPECIFIED (3) HTN (hypertension) Code(s): I10 - ESSENTIAL (PRIMARY) HYPERTENSION Qualifiers: Hypertension type: essential hypertension Qualified Code(s): I10 - Essential (primary) hypertension (4) Hypothyroidism Code(s): E03.9 - HYPOTHYROIDISM, UNSPECIFIED Qualifiers: Hypothyroidism type: acquired Qualified Code(s): E03.9 - Hypothyroidism, unspecified (5) HLD (hyperlipidemia) Code(s): E78.5 - HYPERLIPIDEMIA, UNSPECIFIED
[2019-03-31] MEDS: LEVOTHYROXINE NA 25 MCG TABLET (FP) PO SCH (06:33)
[2019-03-31] MEDS: SODIUM CHLORIDE 0.45% 1,000 ML IV SCH ×2 (07:02→18:45)
[2019-03-31] MEDS: amLODIPine BESYLATE 5 MG TABLET (FP) PO SCH (10:13)
[2019-03-31] MEDS: PANTOPRAZOLE 40 MG TABLET PO SCH ×2 (10:13→22:10)
[2019-03-31] MEDS: ENOXAPARIN NA (PORCINE) 30 MG/0.3 ML DISP.SYRIN SQ SCH ×2 (10:13→22:00)
[2019-03-31] MEDS: diazePAM 5 MG TABLET PO SCH (10:13)
[2019-03-31] MEDS: metoPROLOL SUCCINATE 25 MG TAB.SR.24H (FP) PO SCH (10:14)
[2019-03-31] MEDS: ASPIRIN COATED 81 MG TABLET.EC PO SCH (10:15)
[2019-03-31] MEDS: SERTRALINE HCL 50 MG TABLET (FP) PO SCH (10:15)
[2019-03-31] MEDS: oxyCODONE HCL 5 MG TABLET PO PRN ×2 (10:28→21:59)
--- NOTE | 2019-03-31 10:57 | PN ---
Progress Note (short form) - Note Progress Note: surgery POD #8 s/p r hemicolectomy, closure of colostomy and ventral hernia repair feeling well. She has been OOB and is tolerating her diet. She denies and CP, SOB, N/V , fever or chills. Vital Signs Temp 97.8 F 03/31/19 07:01 Pulse 89 03/31/19 07:01 Resp 20 03/31/19 07:01 BP 122/52 L 03/31/19 07:01 Pulse Ox 95 03/30/19 21:00 Intake & Output 03/30/19 03/30/19 03/31/19 11:59 23:59 11:59 Intake Total 225 900 Output Total 10 605 Balance -10 -380 900 Intake: IV 225 900 1/2 Normal Saline 1,000 225 900 ml @ 75 mls/hr IV ASDIR MARY JANE Rx#:[id number] Output: Drainage 10 5 Abdomen 10 5 Urine 400 Void 400 Ileostomy 200 Other: Voiding Method Bedside Commode # Unmeasured Voids Void 0 Bowel Movement No CBC, BMP 03/30/19 07:40 03/30/19 07:40 A&Ox3, NAD unlabored resp on RA ABD: soft, ND with some diffuse tenderness throughout appropriate to status, all incisions cleaned with NS, ostomy wound and midline wound clean with no d/c or foul odor, surrounding tissue intact with no tracking erythema, edema or evidence of collection or active drainage- repacked with wet gauze. j/p drain removed with no active d/c. ileostomy maturing-pink, protruding, and producing with stool in the bag, bar removed. Problem List - Problems (1) Status post Anthony's procedure Assessment/Plan: 78 yr old female s/p right hemicolectomy, closure of left colostomy and ventral hernia repair POD #8 doing well. Nutrition consult for ileostomy Encourage IS OOB as tolerated GI and DVT prophylaxis d/c planning to rehab Evaluation and plan discussed with Dr Hamilton Code(s): Z93.3 - COLOSTOMY STATUS
--- NOTE | 2019-03-31 11:12 | PN ---
Progress Note, Physician History of Present Illness: stable no new issues - Current Medication List Current Medications: Active Medications Amlodipine Besylate (Norvasc -) 5 mg PO DAILY [facility] Last Admin: 03/31/19 10:13 Dose: 5 mg Aspirin (Ecotrin -) 81 mg PO DAILY [facility] Last Admin: 03/31/19 10:15 Dose: 81 mg Diazepam (Valium -) 5 mg PO DAILY [facility] Last Admin: 03/31/19 10:13 Dose: 5 mg Enoxaparin Sodium (Lovenox -) 30 mg SQ BID [facility] Last Admin: 03/31/19 10:13 Dose: 30 mg Sodium Chloride (1/2 Normal Saline) 1,000 mls @ 75 mls/hr IV ASDIR [facility] Last Admin: 03/31/19 07:02 Dose: 75 mls/hr Ipratropium [place] (Atrovent 0.02% Nebulizer -) 1 amp NEB Q6H PRN PRN Reason: SHORTNESS OF BREATH Stop: 04/03/19 21:57 Levothyroxine Sodium (Synthroid -) 25 mcg PO DAILY@0700 [facility] Last Admin: 03/31/19 06:33 Dose: 25 mcg Metoprolol Succinate (Toprol Xl -) 25 mg PO DAILY [facility] Last Admin: 03/31/19 10:14 Dose: 25 mg Ondansetron HCl (Zofran Injection) 4 mg IVPUSH Q6H PRN PRN Reason: NAUSEA Oxycodone HCl (Roxicodone -) 5 mg PO Q4H PRN PRN Reason: PAIN LEVEL 1-5 Oxycodone HCl (Roxicodone -) 10 mg PO Q6H PRN PRN Reason: PAIN LEVEL 7 - 10 Last Admin: 03/31/19 10:28 Dose: 10 mg Pantoprazole Sodium (Protonix -) 40 mg PO BID [facility] Last Admin: 03/31/19 10:13 Dose: 40 mg Sertraline HCl (Zoloft -) 50 mg PO DAILY [facility] Last Admin: 03/31/19 10:15 Dose: 50 mg Zolpidem Tartrate (Ambien -) 10 mg PO HS PRN PRN Reason: INSOMNIA Last Admin: 03/30/19 22:12 Dose: 10 mg - Objective Vital Signs: Vital Signs Temperature 97.8 F 03/31/19 07:01 Pulse Rate 89 03/31/19 07:01 Respiratory Rate 03/31/19 07:01 Blood Pressure 122/52 L 03/31/19 07:01 O2 Sat by Pulse Oximetry (%) 95 03/30/19 21:00 Constitutional: Yes: No Distress, Calm Cardiovascular: Yes: S1, S2 Respiratory: Yes: Regular, CTA Bilaterally Gastrointestinal: Yes: Normal Bowel Sounds, Soft Musculoskeletal: Yes: WNL Extremities: Yes: WNL Neurological: Yes: Alert, Oriented Psychiatric: Yes: Alert, Oriented Labs: CBC, BMP 03/30/19 07:40 03/30/19 07:40 Assessment/Plan POD #2 s/p ex-lap/SOPHIE/right hemicolectomy with primary anastamosis/colostomy closure with colo-rectal anastamosis/cecal tumor resection/loop ileostomy Acute Blood Loss Anemia CAD s/p CABG HTN Hyperlipidemia Hypothyroidism CKD Anxiety/Depression Diverticulitis S/P Hartmans 04/2018 plan continue current mgmt nutrition rest as per the team improving
[2019-03-31] MEDS ORDERED: SODIUM CHLORIDE 0.45% 1,000 ML IV SCH (19:01)
--- NOTE | 2019-03-31 19:01 | PN ---
Progress Note, Physician History of Present Illness: Pt seen and examined at bedside. She says she does not have much appetite. She did not eat her food today. - Current Medication List Current Medications: Active Medications Amlodipine Besylate (Norvasc -) 5 mg PO DAILY [facility] Last Admin: 03/31/19 10:13 Dose: 5 mg Aspirin (Ecotrin -) 81 mg PO DAILY [facility] Last Admin: 03/31/19 10:15 Dose: 81 mg Diazepam (Valium -) 5 mg PO DAILY [facility] Last Admin: 03/31/19 10:13 Dose: 5 mg Enoxaparin Sodium (Lovenox -) 30 mg SQ BID [facility] Last Admin: 03/31/19 10:13 Dose: 30 mg Sodium Chloride (1/2 Normal Saline) 1,000 mls @ 75 mls/hr IV ASDIR [facility] Last Admin: 03/31/19 18:45 Dose: 75 mls/hr Ipratropium [place] (Atrovent 0.02% Nebulizer -) 1 amp NEB Q6H PRN PRN Reason: SHORTNESS OF BREATH Stop: 04/03/19 21:57 Levothyroxine Sodium (Synthroid -) 25 mcg PO DAILY@0700 [facility] Last Admin: 03/31/19 06:33 Dose: 25 mcg Metoprolol Succinate (Toprol Xl -) 25 mg PO DAILY [facility] Last Admin: 03/31/19 10:14 Dose: 25 mg Ondansetron HCl (Zofran Injection) 4 mg IVPUSH Q6H PRN PRN Reason: NAUSEA Oxycodone HCl (Roxicodone -) 5 mg PO Q4H PRN PRN Reason: PAIN LEVEL 1-5 Oxycodone HCl (Roxicodone -) 10 mg PO Q6H PRN PRN Reason: PAIN LEVEL 7 - 10 Last Admin: 03/31/19 10:28 Dose: 10 mg Pantoprazole Sodium (Protonix -) 40 mg PO BID [facility] Last Admin: 03/31/19 10:13 Dose: 40 mg Sertraline HCl (Zoloft -) 50 mg PO DAILY [facility] Last Admin: 03/31/19 10:15 Dose: 50 mg Zolpidem Tartrate (Ambien -) 10 mg PO HS PRN PRN Reason: INSOMNIA Last Admin: 03/30/19 22:12 Dose: 10 mg - Objective Vital Signs: Vital Signs Temperature 98.2 F 03/31/19 10:00 Pulse Rate 88 03/31/19 10:00 Respiratory Rate 20 03/31/19 10:00 Blood Pressure 137/64 03/31/19 10:00 O2 Sat by Pulse Oximetry (%) 95 03/30/19 21:00 Constitutional: Yes: Calm Eyes: Yes: Conjunctiva Clear HENT: Yes: Atraumatic Neck: Yes: Supple Cardiovascular: Yes: S1, S2 Respiratory: Yes: CTA Bilaterally Gastrointestinal: Yes: Other (dressing in place) Genitourinary: Yes: WNL Musculoskeletal: Yes: WNL Edema: No Integumentary: Yes: WNL Neurological: Yes: Oriented Psychiatric: Yes: Oriented Labs: CBC, BMP 03/30/19 07:40 03/30/19 07:40 Problem List - Problems (1) MARKIE (acute kidney injury) Code(s): N17.9 - ACUTE KIDNEY FAILURE, UNSPECIFIED Assessment/Plan Current Medications Generic Name Dose Route Start Last Admin Trade Name Freq PRN Reason Stop Dose Admin Amlodipine Besylate 5 mg 03/31/19 10:00 03/31/19 10:13 Norvasc - PO 5 mg DAILY [facility]ARY [facility] Administration Aspirin 81 mg 03/31/19 10:00 03/31/19 10:15 Ecotrin - PO 81 mg DAILY M[facility] JANE Administration Diazepam 5 mg 03/31/19 10:00 03/31/19 10:13 Valium - PO 5 mg DAILY [facility] JANE Administration Enoxaparin Sodium 30 mg 03/30/19 22:00 03/31/19 10:13 Lovenox - SQ 30 mg BID MARY JANE Administration Sodium Chloride 1,000 mls @ 75 mls/hr 03/29/19 20:00 03/31/19 18:45 1/2 Normal Saline IV 75 mls/hr ASDIR MARY JANE Administration Ipratropium [place] 1 amp 03/30/19 16:21 Atrovent 0.02% Nebulizer - NEB 04/03/19 21:57 Q6H PRN SHORTNESS OF BREATH Levothyroxine Sodium 25 mcg 03/31/19 07:00 03/31/19 06:33 Synthroid - PO 25 mcg DAILY@0700 MARY JANE Administration Metoprolol Succinate 25 mg 03/31/19 10:00 03/31/19 10:14 Toprol Xl - PO 25 mg DAILY [facility] Administration Ondansetron HCl 4 mg 03/30/19 16:21 Zofran Injection IVPUSH Q6H PRN NAUSEA Oxycodone HCl 5 mg 03/30/19 16:21 Roxicodone - PO Q4H PRN PAIN LEVEL 1-5 Oxycodone HCl 10 mg 03/30/19 16:21 03/31/19 10:28 Roxicodone - PO 10 mg Q6H PRN Administration PAIN LEVEL 7 - 10 Pantoprazole Sodium 40 mg 03/30/19 22:00 03/31/19 10:13 Protonix - PO 40 mg BID MARY JANE Administration Sertraline HCl 50 mg 03/31/19 10:00 03/31/19 10:15 Zoloft - PO 50 mg DAILY [facility] Administration Zolpidem Tartrate 10 mg 03/30/19 16:21 03/30/19 22:12 Ambien - PO 10 mg HS PRN Administration INSOMNIA Impression 1. CKD 2. hyperkalemia 3. abdominal pain 4. hx of perforated diverticula 5. acidosis 6. hld 7. CAD 8. HTN 9. anxiety 10. 1.3 cm left adrenal nodule 11. 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 hx elevated light chains Plan - cont with fluids, she now has IV and is getting them - repeat labs in am - po intake remains poor - monitor bp - potassium stable
[2019-03-31] MEDS: ZOLPIDEM TARTRATE 5 MG TABLET PO PRN (21:57)
--- NOTE | 2019-03-31 22:34 | PN ---
Progress Note, Physician - Current Medication List Current Medications: Active Medications Amlodipine Besylate (Norvasc -) 5 mg PO DAILY [facility] Last Admin: 03/31/19 10:13 Dose: 5 mg Aspirin (Ecotrin -) 81 mg PO DAILY [facility] Last Admin: 03/31/19 10:15 Dose: 81 mg Diazepam (Valium -) 5 mg PO DAILY [facility] Last Admin: 03/31/19 10:13 Dose: 5 mg Enoxaparin Sodium (Lovenox -) 30 mg SQ BID [facility] Last Admin: 03/31/19 22:00 Dose: 30 mg Sodium Chloride (1/2 Normal Saline) 1,000 mls @ 83 mls/hr IV ASDIR [facility] Last Admin: 03/31/19 21:55 Dose: 83 mls/hr Ipratropium [place] (Atrovent 0.02% Nebulizer -) 1 amp NEB Q6H PRN PRN Reason: SHORTNESS OF BREATH Stop: 04/03/19 21:57 Levothyroxine Sodium (Synthroid -) 25 mcg PO DAILY@0700 [facility] Last Admin: 03/31/19 06:33 Dose: 25 mcg Metoprolol Succinate (Toprol Xl -) 25 mg PO DAILY [facility] Last Admin: 03/31/19 10:14 Dose: 25 mg Ondansetron HCl (Zofran Injection) 4 mg IVPUSH Q6H PRN PRN Reason: NAUSEA Oxycodone HCl (Roxicodone -) 5 mg PO Q4H PRN PRN Reason: PAIN LEVEL 1-5 Oxycodone HCl (Roxicodone -) 10 mg PO Q6H PRN PRN Reason: PAIN LEVEL 7 - 10 Last Admin: 03/31/19 21:59 Dose: 10 mg Pantoprazole Sodium (Protonix -) 40 mg PO BID [facility] Last Admin: 03/31/19 22:10 Dose: 40 mg Sertraline HCl (Zoloft -) 50 mg PO DAILY [facility] Last Admin: 03/31/19 10:15 Dose: 50 mg Zolpidem Tartrate (Ambien -) 10 mg PO HS PRN PRN Reason: INSOMNIA Last Admin: 03/31/19 21:57 Dose: 10 mg - Objective Vital Signs: Vital Signs Temperature 98.2 F 03/31/19 10:00 Pulse Rate 88 03/31/19 10:00 Respiratory Rate 20 03/31/19 10:00 Blood Pressure 137/64 03/31/19 10:00 O2 Sat by Pulse Oximetry (%) 95 03/30/19 21:00 Labs: CBC, BMP 03/30/19 07:40 03/30/19 07:40 Problem List - Problems (1) Status post Anthony's procedure Code(s): Z93.3 - COLOSTOMY STATUS (2) Anemia Code(s): D64.9 - ANEMIA, UNSPECIFIED (3) HTN (hypertension) Code(s): I10 - ESSENTIAL (PRIMARY) HYPERTENSION Qualifiers: Hypertension type: essential hypertension Qualified Code(s): I10 - Essential (primary) hypertension (4) Hypothyroidism Code(s): E03.9 - HYPOTHYROIDISM, UNSPECIFIED Qualifiers: Hypothyroidism type: acquired Qualified Code(s): E03.9 - Hypothyroidism, unspecified (5) HLD (hyperlipidemia) Code(s): E78.5 - HYPERLIPIDEMIA, UNSPECIFIED
[2019-04-01] MEDS: LEVOTHYROXINE NA 25 MCG TABLET (FP) PO SCH (06:43)
[2019-04-01 08:20] LABS: ALBUMIN 2.3 g/dl (3.4-5.0); BILIRUBIN,TOTAL 0.2 mg/dL (0.2-1); BLOOD UREA NITROGEN 22.9 mg/dL (7-18); CALCIUM 8.7 mg/dL (8.5-10.1); CREATININE 1.5 mg/dL (0.55-1.3); POTASSIUM 4.3 mmol/L (3.5-5.1); TOT PROT 6.2 g/dl (6.4-8.2)
--- NOTE | 2019-04-01 09:24 | PN ---
Progress Note, Physician History of Present Illness: stable pain main issues - Current Medication List Current Medications: Active Medications Amlodipine Besylate (Norvasc -) 5 mg PO DAILY [facility] Last Admin: 03/31/19 10:13 Dose: 5 mg Aspirin (Ecotrin -) 81 mg PO DAILY [facility] Last Admin: 03/31/19 10:15 Dose: 81 mg Diazepam (Valium -) 5 mg PO DAILY [facility] Last Admin: 03/31/19 10:13 Dose: 5 mg Enoxaparin Sodium (Lovenox -) 30 mg SQ BID [facility] Last Admin: 03/31/19 22:00 Dose: 30 mg Sodium Chloride (1/2 Normal Saline) 1,000 mls @ 83 mls/hr IV ASDIR [facility] Last Admin: 03/31/19 21:55 Dose: 83 mls/hr Ipratropium [place] (Atrovent 0.02% Nebulizer -) 1 amp NEB Q6H PRN PRN Reason: SHORTNESS OF BREATH Stop: 04/03/19 21:57 Levothyroxine Sodium (Synthroid -) 25 mcg PO DAILY@0700 [facility] Last Admin: 04/01/19 06:43 Dose: 25 mcg Metoprolol Succinate (Toprol Xl -) 25 mg PO DAILY [facility] Last Admin: 03/31/19 10:14 Dose: 25 mg Ondansetron HCl (Zofran Injection) 4 mg IVPUSH Q6H PRN PRN Reason: NAUSEA Oxycodone HCl (Roxicodone -) 5 mg PO Q4H PRN PRN Reason: PAIN LEVEL 1-5 Oxycodone HCl (Roxicodone -) 10 mg PO Q6H PRN PRN Reason: PAIN LEVEL 7 - 10 Last Admin: 03/31/19 21:59 Dose: 10 mg Pantoprazole Sodium (Protonix -) 40 mg PO BID [facility] Last Admin: 03/31/19 22:10 Dose: 40 mg Sertraline HCl (Zoloft -) 50 mg PO DAILY [facility] Last Admin: 03/31/19 10:15 Dose: 50 mg Zolpidem Tartrate (Ambien -) 10 mg PO HS PRN PRN Reason: INSOMNIA Last Admin: 03/31/19 21:57 Dose: 10 mg - Objective Vital Signs: Vital Signs Temperature 97.9 F 04/01/19 08:03 Pulse Rate 84 04/01/19 08:03 Respiratory Rate 04/01/19 08:03 Blood Pressure 120/58 L 04/01/19 08:03 O2 Sat by Pulse Oximetry (%) 95 03/30/19 21:00 Constitutional: Yes: No Distress, Calm Cardiovascular: Yes: S1, S2 Respiratory: Yes: Regular, CTA Bilaterally Gastrointestinal: Yes: Normal Bowel Sounds, Soft Musculoskeletal: Yes: WNL Extremities: Yes: WNL Wound/Incision: Yes: Clean/Dry, Other Neurological: Yes: Alert, Oriented Psychiatric: Yes: Alert, Oriented Labs: CBC, BMP 03/30/19 07:40 04/01/19 07:25 Assessment/Plan POD #2 s/p ex-lap/SOPHIE/right hemicolectomy with primary anastamosis/colostomy closure with colo-rectal anastamosis/cecal tumor resection/loop ileostomy Acute Blood Loss Anemia CAD s/p CABG HTN Hyperlipidemia Hypothyroidism CKD Anxiety/Depression Diverticulitis S/P Hartmans 04/2018 plan continue current mgmt nutrition rest as per the team improving
[2019-04-01] MEDS ORDERED: PT OWN MED DRAWER 7, Y5N ONE (09:46)
[2019-04-01] MEDS: amLODIPine BESYLATE 5 MG TABLET (FP) PO SCH (09:47)
[2019-04-01] MEDS: metoPROLOL SUCCINATE 25 MG TAB.SR.24H (FP) PO SCH (09:47)
[2019-04-01] MEDS: PANTOPRAZOLE 40 MG TABLET PO SCH ×2 (09:47→21:33)
[2019-04-01] MEDS: diazePAM 5 MG TABLET PO SCH (09:47)
[2019-04-01] MEDS: ASPIRIN COATED 81 MG TABLET.EC PO SCH (09:47)
[2019-04-01] MEDS: ENOXAPARIN NA (PORCINE) 30 MG/0.3 ML DISP.SYRIN SQ SCH ×2 (09:47→21:35)
[2019-04-01] MEDS: SERTRALINE HCL 50 MG TABLET (FP) PO SCH (09:47)
[2019-04-01] MEDS: oxyCODONE HCL 5 MG TABLET PO PRN ×3 (11:52→21:34)
[2019-04-01] MEDS ORDERED: ZOLPIDEM TARTRATE 5 MG TABLET PO PRN (17:43)
[2019-04-01] MEDS ORDERED: oxyCODONE HCL 5 MG TABLET PO PRN (17:44)
--- NOTE | 2019-04-01 18:28 | PN ---
Progress Note, Physician History of Present Illness: Pt seen and examined at bedside. SHe is awake and alert. She denies shortness of breath. She feels appetite is improving. - Current Medication List Current Medications: Active Medications Amlodipine Besylate (Norvasc -) 5 mg PO DAILY [facility] Last Admin: 04/01/19 09:47 Dose: 5 mg Aspirin (Ecotrin -) 81 mg PO DAILY [facility] Last Admin: 04/01/19 09:47 Dose: 81 mg Diazepam (Valium -) 5 mg PO DAILY [facility] Last Admin: 04/01/19 09:47 Dose: 5 mg Enoxaparin Sodium (Lovenox -) 30 mg SQ BID [facility] Last Admin: 04/01/19 09:47 Dose: 30 mg Ipratropium [place] (Atrovent 0.02% Nebulizer -) 1 amp NEB Q6H PRN PRN Reason: SHORTNESS OF BREATH Stop: 04/03/19 21:57 Levothyroxine Sodium (Synthroid -) 25 mcg PO DAILY@0700 [facility] Last Admin: 04/01/19 06:43 Dose: 25 mcg Metoprolol Succinate (Toprol Xl -) 25 mg PO DAILY [facility] Last Admin: 04/01/19 09:47 Dose: 25 mg Ondansetron HCl (Zofran Injection) 4 mg IVPUSH Q6H PRN PRN Reason: NAUSEA Oxycodone HCl (Roxicodone -) 5 mg PO Q4H PRN PRN Reason: PAIN LEVEL 1-5 Oxycodone HCl (Roxicodone -) 10 mg PO Q6H PRN PRN Reason: PAIN LEVEL 6-10 Pantoprazole Sodium (Protonix -) 40 mg PO BID [facility] Last Admin: 04/01/19 09:47 Dose: 40 mg Sertraline HCl (Zoloft -) 50 mg PO DAILY [facility] Last Admin: 04/01/19 09:47 Dose: 50 mg Zolpidem Tartrate (Ambien -) 5 mg PO HS PRN PRN Reason: INSOMNIA - Objective Vital Signs: Vital Signs Temperature 98.0 F 04/01/19 17:10 Pulse Rate 82 04/01/19 17:10 Respiratory Rate 20 04/01/19 17:10 Blood Pressure 127/65 04/01/19 17:10 O2 Sat by Pulse Oximetry (%) 94 L 01/31/20 09:00 Constitutional: Yes: Calm Eyes: Yes: Conjunctiva Clear HENT: Yes: Atraumatic Neck: Yes: Supple Cardiovascular: Yes: S1, S2 Respiratory: Yes: CTA Bilaterally Gastrointestinal: Yes: Soft, Other (dressing in place) Musculoskeletal: Yes: WNL Edema: No Neurological: Yes: Oriented Labs: CBC, BMP 03/30/19 07:40 04/01/19 07:25 Problem List - Problems (1) MARIKE (acute kidney injury) Code(s): N17.9 - ACUTE KIDNEY FAILURE, UNSPECIFIED Assessment/Plan Current Medications Generic Name Dose Route Start Last Admin Trade Name Freq PRN Reason Stop Dose Admin Amlodipine Besylate 5 mg 03/31/19 10:00 04/01/19 09:47 Norvasc - PO 5 mg DAILY MARY JANE Administration Aspirin 81 mg 03/31/19 10:00 04/01/19 09:47 Ecotrin - PO 81 mg DAILY MARY JANE Administration Diazepam 5 mg 03/31/19 10:00 04/01/19 09:47 Valium - PO 5 mg DAILY MARY JANE Administration Enoxaparin Sodium 30 mg 03/30/19 22:00 04/01/19 09:47 Lovenox - SQ 30 mg BID MARY JANE Administration Ipratropium [place] 1 amp 03/30/19 16:21 Atrovent 0.02% Nebulizer - NEB 04/03/19 21:57 Q6H PRN SHORTNESS OF BREATH Levothyroxine Sodium 25 mcg 03/31/19 07:00 04/01/19 06:43 Synthroid - PO 25 mcg DAILY@0700 MARY JANE Administration Metoprolol Succinate 25 mg 03/31/19 10:00 04/01/19 09:47 Toprol Xl - PO 25 mg DAILY MARY JANE Administration Ondansetron HCl 4 mg 03/30/19 16:21 Zofran Injection IVPUSH Q6H PRN NAUSEA Oxycodone HCl 5 mg 04/01/19 17:44 Roxicodone - PO Q4H PRN PAIN LEVEL 1-5 Oxycodone HCl 10 mg 04/01/19 17:44 Roxicodone - PO Q6H PRN PAIN LEVEL 6-10 Pantoprazole Sodium 40 mg 03/30/19 22:00 04/01/19 09:47 Protonix - PO 40 mg BID MARY JANE Administration Sertraline HCl 50 mg 03/31/19 10:00 04/01/19 09:47 Zoloft - PO 50 mg DAILY MARY JANE Administration Zolpidem Tartrate 5 mg 04/01/19 17:44 Ambien - PO HS PRN INSOMNIA Impression 1. CKD 2. hyperkalemia 3. abdominal pain 4. hx of perforated diverticula 5. acidosis 6. hld 7. CAD 8. HTN 9. anxiety 10. 1.3 cm left adrenal nodule 11. 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
[2019-04-01] MEDS: SODIUM CHLORIDE 0.45% 1,000 ML IV SCH ×2 (18:43→21:39)
--- NOTE | 2019-04-01 21:51 | PN ---
Progress Note, Physician - Current Medication List Current Medications: Active Medications Amlodipine Besylate (Norvasc -) 5 mg PO DAILY [facility] Last Admin: 04/01/19 09:47 Dose: 5 mg Aspirin (Ecotrin -) 81 mg PO DAILY [facility] Last Admin: 04/01/19 09:47 Dose: 81 mg Diazepam (Valium -) 5 mg PO DAILY [facility] Last Admin: 04/01/19 09:47 Dose: 5 mg Enoxaparin Sodium (Lovenox -) 30 mg SQ BID [facility] Last Admin: 04/01/19 21:35 Dose: 30 mg Sodium Chloride (1/2 Normal Saline) 1,000 mls @ 50 mls/hr IV ASDIR [facility] Stop: 04/02/19 18:28 Last Admin: 04/01/19 21:39 Dose: 50 mls/hr Ipratropium [place] (Atrovent 0.02% Nebulizer -) 1 amp NEB Q6H PRN PRN Reason: SHORTNESS OF BREATH Stop: 04/03/19 21:57 Levothyroxine Sodium (Synthroid -) 25 mcg PO DAILY@0700 [facility] Last Admin: 04/01/19 06:43 Dose: 25 mcg Metoprolol Succinate (Toprol Xl -) 25 mg PO DAILY [facility] Last Admin: 04/01/19 09:47 Dose: 25 mg Ondansetron HCl (Zofran Injection) 4 mg IVPUSH Q6H PRN PRN Reason: NAUSEA Oxycodone HCl (Roxicodone -) 5 mg PO Q4H PRN PRN Reason: PAIN LEVEL 1-5 Oxycodone HCl (Roxicodone -) 10 mg PO Q6H PRN PRN Reason: PAIN LEVEL 6-10 Last Admin: 04/01/19 21:34 Dose: 10 mg Pantoprazole Sodium (Protonix -) 40 mg PO BID [facility] Last Admin: 04/01/19 21:33 Dose: 40 mg Sertraline HCl (Zoloft -) 50 mg PO DAILY [facility] Last Admin: 04/01/19 09:47 Dose: 50 mg Zolpidem Tartrate (Ambien -) 5 mg PO HS PRN PRN Reason: INSOMNIA - Objective Vital Signs: Vital Signs Temperature 98.0 F 04/01/19 17:10 Pulse Rate 82 04/01/19 17:10 Respiratory Rate 20 04/01/19 17:10 Blood Pressure 127/65 04/01/19 17:10 O2 Sat by Pulse Oximetry (%) 94 L 04/01/19 09:00 Labs: CBC, BMP 03/30/19 07:40 04/01/19 07:25 Problem List - Problems (1) Status post Anthony's procedure Code(s): Z93.3 - COLOSTOMY STATUS (2) Anemia Code(s): D64.9 - ANEMIA, UNSPECIFIED (3) HTN (hypertension) Code(s): I10 - ESSENTIAL (PRIMARY) HYPERTENSION Qualifiers: Hypertension type: essential hypertension Qualified Code(s): I10 - Essential (primary) hypertension (4) Hypothyroidism Code(s): E03.9 - HYPOTHYROIDISM, UNSPECIFIED Qualifiers: Hypothyroidism type: acquired Qualified Code(s): E03.9 - Hypothyroidism, unspecified (5) HLD (hyperlipidemia) Code(s): E78.5 - HYPERLIPIDEMIA, UNSPECIFIED
[2019-04-01] MEDS: ZOLPIDEM TARTRATE 5 MG TABLET PO PRN (22:22)
[2019-04-02] MEDS: LEVOTHYROXINE NA 25 MCG TABLET (FP) PO SCH (06:38)
[2019-04-02] MEDS: amLODIPine BESYLATE 5 MG TABLET (FP) PO SCH (09:22)
[2019-04-02] MEDS: ENOXAPARIN NA (PORCINE) 30 MG/0.3 ML DISP.SYRIN SQ SCH ×2 (09:22→21:29)
[2019-04-02] MEDS: PANTOPRAZOLE 40 MG TABLET PO SCH ×2 (09:22→21:29)
[2019-04-02] MEDS: SERTRALINE HCL 50 MG TABLET (FP) PO SCH (09:22)
[2019-04-02] MEDS: diazePAM 5 MG TABLET PO SCH (09:22)
[2019-04-02] MEDS: metoPROLOL SUCCINATE 25 MG TAB.SR.24H (FP) PO SCH (09:22)
[2019-04-02] MEDS: ASPIRIN COATED 81 MG TABLET.EC PO SCH (09:22)
[2019-04-02] MEDS: oxyCODONE HCL 5 MG TABLET PO PRN ×3 (10:22→21:30)
--- NOTE | 2019-04-02 19:31 | PN ---
Progress Note, Physician - Current Medication List Current Medications: Active Medications Amlodipine Besylate (Norvasc -) 5 mg PO DAILY [facility] Last Admin: 04/02/19 09:22 Dose: 5 mg Aspirin (Ecotrin -) 81 mg PO DAILY [facility] Last Admin: 04/02/19 09:22 Dose: 81 mg Diazepam (Valium -) 5 mg PO DAILY [facility] Last Admin: 04/02/19 09:22 Dose: 5 mg Enoxaparin Sodium (Lovenox -) 30 mg SQ BID [facility] Last Admin: 04/02/19 09:22 Dose: 30 mg Ipratropium [place] (Atrovent 0.02% Nebulizer -) 1 amp NEB Q6H PRN PRN Reason: SHORTNESS OF BREATH Stop: 04/03/19 21:57 Levothyroxine Sodium (Synthroid -) 25 mcg PO DAILY@0700 [facility] Last Admin: 04/02/19 06:38 Dose: 25 mcg Metoprolol Succinate (Toprol Xl -) 25 mg PO DAILY [facility] Last Admin: 04/02/19 09:22 Dose: 25 mg Oxycodone HCl (Roxicodone -) 5 mg PO Q4H PRN PRN Reason: PAIN LEVEL 1-5 Oxycodone HCl (Roxicodone -) 10 mg PO Q4H PRN PRN Reason: PAIN LEVEL 6-10 Last Admin: 04/02/19 15:51 Dose: 10 mg Pantoprazole Sodium (Protonix -) 40 mg PO BID [facility] Last Admin: 04/02/19 09:22 Dose: 40 mg Sertraline HCl (Zoloft -) 50 mg PO DAILY [facility] Last Admin: 04/02/19 09:22 Dose: 50 mg Zolpidem Tartrate (Ambien -) 5 mg PO HS PRN PRN Reason: INSOMNIA Last Admin: 04/01/19 22:22 Dose: 5 mg - Objective Vital Signs: Vital Signs Temperature 98.6 F 04/02/19 18:15 Pulse Rate 78 04/02/19 18:15 Respiratory Rate 20 04/02/19 18:15 Blood Pressure 127/52 L 04/02/19 18:15 O2 Sat by Pulse Oximetry (%) 96 04/02/19 09:00 Labs: CBC, BMP 03/30/19 07:40 04/01/19 07:25 Assessment/Plan s/p ex-lap/SOPHIE/right hemicolectomy with primary anastamosis/colostomy closure with colo-rectal anastamosis/cecal tumor resection/loop ileostomy Acute Blood Loss Anemia CAD s/p CABG HTN Hyperlipidemia Hypothyroidism CKD Anxiety/Depression Diverticulitis S/P Mi 04/2018 -- Pt is alert, afebrile, pain controlled -- continue monitor off antibiotics
[2019-04-02] MEDS: ZOLPIDEM TARTRATE 5 MG TABLET PO PRN (21:31)
--- NOTE | 2019-04-02 21:39 | PN ---
Progress Note, Physician - Current Medication List Current Medications: Active Medications Amlodipine Besylate (Norvasc -) 5 mg PO DAILY [facility] Last Admin: 04/02/19 09:22 Dose: 5 mg Aspirin (Ecotrin -) 81 mg PO DAILY [facility] Last Admin: 04/02/19 09:22 Dose: 81 mg Diazepam (Valium -) 5 mg PO DAILY [facility] Last Admin: 04/02/19 09:22 Dose: 5 mg Enoxaparin Sodium (Lovenox -) 30 mg SQ BID [facility] Last Admin: 04/02/19 21:29 Dose: 30 mg Ipratropium [place] (Atrovent 0.02% Nebulizer -) 1 amp NEB Q6H PRN PRN Reason: SHORTNESS OF BREATH Stop: 04/03/19 21:57 Levothyroxine Sodium (Synthroid -) 25 mcg PO DAILY@0700 [facility] Last Admin: 04/02/19 06:38 Dose: 25 mcg Metoprolol Succinate (Toprol Xl -) 25 mg PO DAILY [facility] Last Admin: 04/02/19 09:22 Dose: 25 mg Oxycodone HCl (Roxicodone -) 5 mg PO Q4H PRN PRN Reason: PAIN LEVEL 1-5 Oxycodone HCl (Roxicodone -) 10 mg PO Q4H PRN PRN Reason: PAIN LEVEL 6-10 Last Admin: 04/02/19 21:30 Dose: 10 mg Pantoprazole Sodium (Protonix -) 40 mg PO BID [facility] Last Admin: 04/02/19 21:29 Dose: 40 mg Sertraline HCl (Zoloft -) 50 mg PO DAILY [facility] Last Admin: 04/02/19 09:22 Dose: 50 mg Zolpidem Tartrate (Ambien -) 5 mg PO HS PRN PRN Reason: INSOMNIA Last Admin: 04/02/19 21:31 Dose: 5 mg - Objective Vital Signs: Vital Signs Temperature 98.6 F 04/02/19 18:15 Pulse Rate 78 04/02/19 18:15 Respiratory Rate 20 04/02/19 18:15 Blood Pressure 127/52 L 04/02/19 18:15 O2 Sat by Pulse Oximetry (%) 96 04/02/19 09:00 Labs: CBC, BMP 03/30/19 07:40 04/01/19 07:25 Problem List - Problems (1) Status post Anthony's procedure Code(s): Z93.3 - COLOSTOMY STATUS (2) Anemia Code(s): D64.9 - ANEMIA, UNSPECIFIED (3) HTN (hypertension) Code(s): I10 - ESSENTIAL (PRIMARY) HYPERTENSION Qualifiers: Hypertension type: essential hypertension Qualified Code(s): I10 - Essential (primary) hypertension (4) Hypothyroidism Code(s): E03.9 - HYPOTHYROIDISM, UNSPECIFIED Qualifiers: Hypothyroidism type: acquired Qualified Code(s): E03.9 - Hypothyroidism, unspecified (5) HLD (hyperlipidemia) Code(s): E78.5 - HYPERLIPIDEMIA, UNSPECIFIED
[2019-04-03] MEDS: oxyCODONE HCL 5 MG TABLET PO PRN ×3 (06:13→19:54)
[2019-04-03] MEDS: LEVOTHYROXINE NA 25 MCG TABLET (FP) PO SCH (06:13)
[2019-04-03] MEDS: SERTRALINE HCL 50 MG TABLET (FP) PO SCH (10:02)
[2019-04-03] MEDS: PANTOPRAZOLE 40 MG TABLET PO SCH ×2 (10:02→21:51)
[2019-04-03] MEDS: amLODIPine BESYLATE 5 MG TABLET (FP) PO SCH (10:02)
[2019-04-03] MEDS: diazePAM 5 MG TABLET PO SCH (10:02)
[2019-04-03] MEDS: metoPROLOL SUCCINATE 25 MG TAB.SR.24H (FP) PO SCH (10:02)
[2019-04-03] MEDS: ENOXAPARIN NA (PORCINE) 30 MG/0.3 ML DISP.SYRIN SQ SCH ×2 (10:03→21:51)
[2019-04-03] MEDS: ASPIRIN COATED 81 MG TABLET.EC PO SCH (10:03)
--- NOTE | 2019-04-03 19:27 | PN ---
Progress Note, Physician History of Present Illness: Pt is alert, without distress. Has minimal abd pain. Tmax 99.5F. No new complaints. - Current Medication List Current Medications: Active Medications Amlodipine Besylate (Norvasc -) 5 mg PO DAILY [facility] Last Admin: 04/03/19 10:02 Dose: 5 mg Aspirin (Ecotrin -) 81 mg PO DAILY [facility] Last Admin: 04/03/19 10:03 Dose: 81 mg Diazepam (Valium -) 5 mg PO DAILY [facility] Last Admin: 04/03/19 10:02 Dose: 5 mg Enoxaparin Sodium (Lovenox -) 30 mg SQ BID [facility] Last Admin: 04/03/19 10:03 Dose: 30 mg Ipratropium [place] (Atrovent 0.02% Nebulizer -) 1 amp NEB Q6H PRN PRN Reason: SHORTNESS OF BREATH Stop: 04/03/19 21:57 Levothyroxine Sodium (Synthroid -) 25 mcg PO DAILY@0700 [facility] Last Admin: 04/03/19 06:13 Dose: 25 mcg Metoprolol Succinate (Toprol Xl -) 25 mg PO DAILY [facility] Last Admin: 04/03/19 10:02 Dose: 25 mg Oxycodone HCl (Roxicodone -) 5 mg PO Q4H PRN PRN Reason: PAIN LEVEL 1-5 Oxycodone HCl (Roxicodone -) 10 mg PO Q4H PRN PRN Reason: PAIN LEVEL 6-10 Last Admin: 04/03/19 10:50 Dose: 10 mg Pantoprazole Sodium (Protonix -) 40 mg PO BID [facility] Last Admin: 04/03/19 10:02 Dose: 40 mg Sertraline HCl (Zoloft -) 50 mg PO DAILY [facility] Last Admin: 04/03/19 10:02 Dose: 50 mg Zolpidem Tartrate (Ambien -) 5 mg PO HS PRN PRN Reason: INSOMNIA Last Admin: 04/02/19 21:31 Dose: 5 mg - Objective Vital Signs: Vital Signs Temperature 99.2 F 04/03/19 17:13 Pulse Rate 79 04/03/19 17:13 Respiratory Rate 20 04/03/19 17:13 Blood Pressure 127/66 04/03/19 17:13 O2 Sat by Pulse Oximetry (%) 95 04/03/19 09:00 Constitutional: Yes: No Distress, Calm Cardiovascular: Yes: Regular Rate and Rhythm Respiratory: Yes: CTA Bilaterally Gastrointestinal: Yes: Normal Bowel Sounds, Soft, Other (ileostomy) Genitourinary: Yes: WNL Extremities: Yes: WNL Integumentary: Yes: WNL Neurological: Yes: Alert Labs: CBC, BMP 03/30/19 07:40 04/01/19 07:25 Assessment/Plan s/p ex-lap/SOPHIE/right hemicolectomy with primary anastamosis/colostomy closure with colo-rectal anastamosis/cecal tumor resection/loop ileostomy Acute Blood Loss Anemia CAD s/p CABG HTN Hyperlipidemia Hypothyroidism CKD Anxiety/Depression Diverticulitis S/P Hartmans 04/2018 -- Pt is alert, without distress or new complaints. -- temp mildy elevated today -- repeat cbc, follow temps -- continue monitor off antibiotics for now Vitals stable
[2019-04-03] MEDS: ZOLPIDEM TARTRATE 5 MG TABLET PO PRN (21:51)
--- NOTE | 2019-04-03 23:56 | PN ---
Progress Note, Physician History of Present Illness: No new complaints - Current Medication List Current Medications: Active Medications Amlodipine Besylate (Norvasc -) 5 mg PO DAILY [facility] Last Admin: 04/03/19 10:02 Dose: 5 mg Aspirin (Ecotrin -) 81 mg PO DAILY [facility] Last Admin: 04/03/19 10:03 Dose: 81 mg Diazepam (Valium -) 5 mg PO DAILY [facility] Last Admin: 04/03/19 10:02 Dose: 5 mg Enoxaparin Sodium (Lovenox -) 30 mg SQ BID [facility] Last Admin: 04/03/19 21:51 Dose: 30 mg Levothyroxine Sodium (Synthroid -) 25 mcg PO DAILY@0700 [facility] Last Admin: 04/03/19 06:13 Dose: 25 mcg Metoprolol Succinate (Toprol Xl -) 25 mg PO DAILY [facility] Last Admin: 04/03/19 10:02 Dose: 25 mg Oxycodone HCl (Roxicodone -) 5 mg PO Q4H PRN PRN Reason: PAIN LEVEL 1-5 Oxycodone HCl (Roxicodone -) 10 mg PO Q4H PRN PRN Reason: PAIN LEVEL 6-10 Last Admin: 04/03/19 19:54 Dose: 10 mg Pantoprazole Sodium (Protonix -) 40 mg PO BID [facility] Last Admin: 04/03/19 21:51 Dose: 40 mg Sertraline HCl (Zoloft -) 50 mg PO DAILY [facility] Last Admin: 04/03/19 10:02 Dose: 50 mg Zolpidem Tartrate (Ambien -) 5 mg PO HS PRN PRN Reason: INSOMNIA Last Admin: 04/03/19 21:51 Dose: 5 mg - Objective Vital Signs: Vital Signs Temperature 99.2 F 04/03/19 17:13 Pulse Rate 81 04/03/19 22:00 Respiratory Rate 18 04/03/19 22:00 Blood Pressure 138/61 04/03/19 22:00 O2 Sat by Pulse Oximetry (%) 95 04/03/19 21:00 Cardiovascular: Yes: WNL, Regular Rate and Rhythm Respiratory: Yes: WNL, Regular, CTA Bilaterally Gastrointestinal: Yes: WNL, Normal Bowel Sounds, Soft, Other ((+) ileostomy) Labs: CBC, BMP 03/30/19 07:40 04/01/19 07:25 Problem List - Problems (1) Status post Anthony's procedure Assessment/Plan: Pt tolerating diet Cont wound care Spoke to pt at length today and pt is to be dc'ed to [facility] in am Code(s): Z93.3 - COLOSTOMY STATUS (2) Anemia Assessment/Plan: Acute blood loss anemia H/H has remained stable Cont to monitor Code(s): D64.9 - ANEMIA, UNSPECIFIED (3) HTN (hypertension) Assessment/Plan: BP stable Cont norvasc/asa/metoprolol Code(s): I10 - ESSENTIAL (PRIMARY) HYPERTENSION Qualifiers: Hypertension type: essential hypertension Qualified Code(s): I10 - Essential (primary) hypertension (4) Hypothyroidism Assessment/Plan: Cont levothyroxine Code(s): E03.9 - HYPOTHYROIDISM, UNSPECIFIED Qualifiers: Hypothyroidism type: acquired Qualified Code(s): E03.9 - Hypothyroidism, unspecified (5) HLD (hyperlipidemia) Code(s): E78.5 - HYPERLIPIDEMIA, UNSPECIFIED
[2019-04-04] MEDS: LEVOTHYROXINE NA 25 MCG TABLET (FP) PO SCH (06:43)
[2019-04-04] MEDS: oxyCODONE HCL 5 MG TABLET PO PRN ×2 (06:43→18:57)
[2019-04-04 08:52] LABS: BASO % 0.8 % (0-2.0); EOS % 1.8 % (0-4.5); HEMATOCRIT 26.5 % (32.4-45.2); HEMOGLOBIN 8.6 GM/dL (10.7-15.3); LYMPH % 17.1 % (8-40); MCHC 32.5 g/dl (32.0-36.0); MEAN PLT VOLUME 8.3 fl (7.5-11.1); MONO % 7.8 % (3.8-10.2); NEUT % 72.5 % (42.8-82.8); PLATELET COUNT 363 K/MM3 (134-434); RBC 3.08 M/mm3 (3.60-5.2); RDW 15.8 % (11.6-15.6); WHITE BLOOD COUNT 9.9 K/mm3 (4.0-10.0)
[2019-04-04 09:14] LABS: BLOOD UREA NITROGEN 15.6 mg/dL (7-18); CALCIUM 8.6 mg/dL (8.5-10.1); CREATININE 1.6 mg/dL (0.55-1.3); POTASSIUM 3.9 mmol/L (3.5-5.1)
[2019-04-04] MEDS ORDERED: PT OWN MED DRAWER 7, Y5N ONE (10:10)
[2019-04-04] MEDS: PANTOPRAZOLE 40 MG TABLET PO SCH ×2 (10:13→21:43)
[2019-04-04] MEDS: ENOXAPARIN NA (PORCINE) 30 MG/0.3 ML DISP.SYRIN SQ SCH ×3 (10:13→21:51)
[2019-04-04] MEDS: amLODIPine BESYLATE 5 MG TABLET (FP) PO SCH (10:13)
[2019-04-04] MEDS: SERTRALINE HCL 50 MG TABLET (FP) PO SCH (10:13)
[2019-04-04] MEDS: metoPROLOL SUCCINATE 25 MG TAB.SR.24H (FP) PO SCH (10:13)
[2019-04-04] MEDS: diazePAM 5 MG TABLET PO SCH (10:13)
[2019-04-04] MEDS: ASPIRIN COATED 81 MG TABLET.EC PO SCH (10:13)
--- NOTE | 2019-04-04 13:25 | PN ---
Progress Note, Physician History of Present Illness: stable wbc normalized - Current Medication List Current Medications: Active Medications Amlodipine Besylate (Norvasc -) 5 mg PO DAILY [facility] Last Admin: 04/04/19 10:13 Dose: 5 mg Aspirin (Ecotrin -) 81 mg PO DAILY [facility] Last Admin: 04/04/19 10:13 Dose: 81 mg Diazepam (Valium -) 5 mg PO DAILY [facility] Last Admin: 04/04/19 10:13 Dose: 5 mg Enoxaparin Sodium (Lovenox -) 30 mg SQ BID [facility] Last Admin: 04/04/19 10:13 Dose: 30 mg Levothyroxine Sodium (Synthroid -) 25 mcg PO DAILY@0700 [facility] Last Admin: 04/04/19 06:43 Dose: 25 mcg Metoprolol Succinate (Toprol Xl -) 25 mg PO DAILY [facility] Last Admin: 04/04/19 10:13 Dose: 25 mg Oxycodone HCl (Roxicodone -) 5 mg PO Q4H PRN PRN Reason: PAIN LEVEL 1-5 Oxycodone HCl (Roxicodone -) 10 mg PO Q4H PRN PRN Reason: PAIN LEVEL 6-10 Last Admin: 04/04/19 06:43 Dose: 10 mg Pantoprazole Sodium (Protonix -) 40 mg PO BID [facility] Last Admin: 04/04/19 10:13 Dose: 40 mg Sertraline HCl (Zoloft -) 50 mg PO DAILY [facility] Last Admin: 04/04/19 10:13 Dose: 50 mg Zolpidem Tartrate (Ambien -) 5 mg PO HS PRN PRN Reason: INSOMNIA Last Admin: 04/03/19 21:51 Dose: 5 mg - Objective Vital Signs: Vital Signs Temperature 99.2 F 04/04/19 07:00 Pulse Rate 91 H 04/04/19 07:00 Respiratory Rate 18 04/04/19 07:00 Blood Pressure 145/59 L 04/04/19 07:00 O2 Sat by Pulse Oximetry (%) 95 04/03/19 21:00 Constitutional: Yes: No Distress, Calm Cardiovascular: Yes: S1, S2 Respiratory: Yes: Regular, CTA Bilaterally Gastrointestinal: Yes: Normal Bowel Sounds, Soft Musculoskeletal: Yes: WNL Extremities: Yes: WNL Neurological: Yes: Alert, Oriented Psychiatric: Yes: Alert, Oriented Labs: CBC, BMP 04/04/19 08:02 04/04/19 08:02 Assessment/Plan POD #2 s/p ex-lap/SOPHIE/right hemicolectomy with primary anastamosis/colostomy closure with colo-rectal anastamosis/cecal tumor resection/loop ileostomy Acute Blood Loss Anemia CAD s/p CABG HTN Hyperlipidemia Hypothyroidism CKD Anxiety/Depression Diverticulitis S/P Hartmans 04/2018 plan continue current mgmt nutrition rest as per the team improving
--- NOTE | 2019-04-04 17:10 | PN ---
Progress Note, Physician History of Present Illness: Pt seen and examined at bedside. She is awake and alert. She is tolerating diet. - Current Medication List Current Medications: Active Medications Amlodipine Besylate (Norvasc -) 5 mg PO DAILY [facility] Last Admin: 04/04/19 10:13 Dose: 5 mg Aspirin (Ecotrin -) 81 mg PO DAILY [facility] Last Admin: 04/04/19 10:13 Dose: 81 mg Diazepam (Valium -) 5 mg PO DAILY [facility] Last Admin: 04/04/19 10:13 Dose: 5 mg Enoxaparin Sodium (Lovenox -) 30 mg SQ BID [facility] Last Admin: 04/04/19 10:13 Dose: 30 mg Levothyroxine Sodium (Synthroid -) 25 mcg PO DAILY@0700 [facility] Last Admin: 04/04/19 06:43 Dose: 25 mcg Metoprolol Succinate (Toprol Xl -) 25 mg PO DAILY [facility] Last Admin: 04/04/19 10:13 Dose: 25 mg Oxycodone HCl (Roxicodone -) 5 mg PO Q4H PRN PRN Reason: PAIN LEVEL 1-5 Oxycodone HCl (Roxicodone -) 10 mg PO Q4H PRN PRN Reason: PAIN LEVEL 6-10 Last Admin: 04/04/19 06:43 Dose: 10 mg Pantoprazole Sodium (Protonix -) 40 mg PO BID [facility] Last Admin: 04/04/19 10:13 Dose: 40 mg Sertraline HCl (Zoloft -) 50 mg PO DAILY [facility] Last Admin: 04/04/19 10:13 Dose: 50 mg Zolpidem Tartrate (Ambien -) 5 mg PO HS PRN PRN Reason: INSOMNIA Last Admin: 04/03/19 21:51 Dose: 5 mg - Objective Vital Signs: Vital Signs Temperature 98.8 F 04/04/19 10:00 Pulse Rate 99 H 04/04/19 10:00 Respiratory Rate 20 04/04/19 10:00 Blood Pressure 144/63 04/04/19 10:00 O2 Sat by Pulse Oximetry (%) 95 04/04/19 09:00 Constitutional: Yes: Calm Eyes: Yes: Conjunctiva Clear HENT: Yes: Atraumatic Neck: Yes: Supple Cardiovascular: Yes: S1, S2 Respiratory: Yes: CTA Bilaterally Gastrointestinal: Yes: Soft Genitourinary: Yes: WNL Musculoskeletal: Yes: WNL Edema: No Neurological: Yes: Oriented Psychiatric: Yes: Oriented Labs: CBC, BMP 04/04/19 08:02 04/04/19 08:02 Problem List - Problems (1) MARKIE (acute kidney injury) Code(s): N17.9 - ACUTE KIDNEY FAILURE, UNSPECIFIED Assessment/Plan Current Medications Generic Name Dose Route Start Last Admin Trade Name Freq PRN Reason Stop Dose Admin Amlodipine Besylate 5 mg 03/31/19 10:00 04/04/19 10:13 Norvasc - PO 5 mg DAILY [facility] Administration Aspirin 81 mg 03/31/19 10:00 04/04/19 10:13 Ecotrin - PO 81 mg DAILY [facility] Administration Diazepam 5 mg 03/31/19 10:00 04/04/19 10:13 Valium - PO 5 mg DAILY [facility] Administration Enoxaparin Sodium 30 mg 03/30/19 22:00 04/04/19 10:13 Lovenox - SQ 30 mg BID [facility] Administration Levothyroxine Sodium 25 mcg 03/31/19 07:00 04/04/19 06:43 Synthroid - PO 25 mcg DAILY@0700 [facility] Administration Metoprolol Succinate 25 mg 03/31/19 10:00 04/04/19 10:13 Toprol Xl - PO 25 mg DAILY [facility] Administration Oxycodone HCl 5 mg 04/01/19 17:44 Roxicodone - PO Q4H PRN PAIN LEVEL 1-5 Oxycodone HCl 10 mg 04/02/19 15:42 04/04/19 06:43 Roxicodone - PO 10 mg Q4H PRN Administration PAIN LEVEL 6-10 Pantoprazole Sodium 40 mg 03/30/19 22:00 04/04/19 10:13 Protonix - PO 40 mg BID [facility] Administration Sertraline HCl 50 mg 03/31/19 10:00 04/04/19 10:13 Zoloft - PO 50 mg DAILY [facility] Administration Zolpidem Tartrate 5 mg 04/01/19 17:44 04/03/19 21:51 Ambien - PO 5 mg HS PRN Administration INSOMNIA Impression 1. CKD 2. hyperkalemia 3. abdominal pain 4. hx of perforated diverticula 5. acidosis 6. hld 7. CAD 8. HTN 9. anxiety 10. 1.3 cm left adrenal nodule 11. 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
--- NOTE | 2019-04-04 19:12 | PN ---
Progress Note, Physician - Current Medication List Current Medications: Active Medications Amlodipine Besylate (Norvasc -) 5 mg PO DAILY [facility] Last Admin: 04/04/19 10:13 Dose: 5 mg Aspirin (Ecotrin -) 81 mg PO DAILY [facility] Last Admin: 04/04/19 10:13 Dose: 81 mg Diazepam (Valium -) 5 mg PO DAILY [facility] Last Admin: 04/04/19 10:13 Dose: 5 mg Enoxaparin Sodium (Lovenox -) 30 mg SQ BID [facility] Last Admin: 04/04/19 10:13 Dose: 30 mg Levothyroxine Sodium (Synthroid -) 25 mcg PO DAILY@0700 [facility] Last Admin: 04/04/19 06:43 Dose: 25 mcg Metoprolol Succinate (Toprol Xl -) 25 mg PO DAILY [facility] Last Admin: 04/04/19 10:13 Dose: 25 mg Oxycodone HCl (Roxicodone -) 10 mg PO Q4H PRN PRN Reason: PAIN LEVEL 6-10 Last Admin: 04/04/19 18:57 Dose: 10 mg Pantoprazole Sodium (Protonix -) 40 mg PO BID [facility] Last Admin: 04/04/19 10:13 Dose: 40 mg Sertraline HCl (Zoloft -) 50 mg PO DAILY [facility] Last Admin: 04/04/19 10:13 Dose: 50 mg - Objective Vital Signs: Vital Signs Temperature 98.3 F 04/04/19 16:30 Pulse Rate 79 04/04/19 16:30 Respiratory Rate 20 04/04/19 16:30 Blood Pressure 128/73 04/04/19 16:30 O2 Sat by Pulse Oximetry (%) 95 04/04/19 09:00 Constitutional: Yes: No Distress HENT: Yes: Atraumatic Neck: Yes: Supple Cardiovascular: Yes: Regular Rate and Rhythm Respiratory: Yes: CTA Bilaterally Gastrointestinal: Yes: Normal Bowel Sounds Extremities: Yes: WNL Edema: No Labs: CBC, BMP 04/04/19 08:02 04/04/19 08:02 Problem List - Problems (1) Anemia Code(s): D64.9 - ANEMIA, UNSPECIFIED (2) HLD (hyperlipidemia) Code(s): E78.5 - HYPERLIPIDEMIA, UNSPECIFIED (3) HTN (hypertension) Code(s): I10 - ESSENTIAL (PRIMARY) HYPERTENSION Qualifiers: Hypertension type: essential hypertension Qualified Code(s): I10 - Essential (primary) hypertension (4) Status post Anthony's procedure Code(s): Z93.3 - COLOSTOMY STATUS Assessment/Plan doing well continue current meds awaiting placement COVERING TODAY FOR DR JAQUEZ MY FIRST ENCOUNTER WITH THIS PATIENT
[2019-04-04] MEDS ORDERED: oxyCODONE HCL 5 MG TABLET PO PRN (19:18)
[2019-04-04] MEDS: ZOLPIDEM TARTRATE 5 MG TABLET PO PRN (21:43)
[2019-04-05] MEDS: LEVOTHYROXINE NA 25 MCG TABLET (FP) PO SCH (06:27)
[2019-04-05] MEDS: ASPIRIN COATED 81 MG TABLET.EC PO SCH (09:31)
[2019-04-05] MEDS: diazePAM 5 MG TABLET PO SCH (09:32)
[2019-04-05] MEDS: metoPROLOL SUCCINATE 25 MG TAB.SR.24H (FP) PO SCH (09:32)
[2019-04-05] MEDS: amLODIPine BESYLATE 5 MG TABLET (FP) PO SCH (09:32)
[2019-04-05] MEDS: PANTOPRAZOLE 40 MG TABLET PO SCH ×2 (09:32→21:02)
[2019-04-05] MEDS: ENOXAPARIN NA (PORCINE) 30 MG/0.3 ML DISP.SYRIN SQ SCH ×2 (09:33→21:02)
[2019-04-05] MEDS: SERTRALINE HCL 50 MG TABLET (FP) PO SCH (09:33)
[2019-04-05] MEDS ORDERED: PT OWN MED DRAWER 7, Y5N ONE (11:03)
[2019-04-05] MEDS ORDERED: ONDANSETRON 4 MG/2 ML VIAL IVPUSH ONE (11:30)
[2019-04-05] MEDS: ACETAMINOPHEN 325 MG TABLET (FP) PO PRN ×2 (12:47→18:15)
[2019-04-05] MEDS ORDERED: ONDANSETRON 4 MG TABLET PO ONE ×2 (13:00→18:00)
--- NOTE | 2019-04-05 13:14 | PN ---
Progress Note, Physician History of Present Illness: stable no new issues - Current Medication List Current Medications: Active Medications Acetaminophen (Tylenol -) 650 mg PO Q4H PRN PRN Reason: PAIN LEVEL 1-5 Amlodipine Besylate (Norvasc -) 5 mg PO DAILY [facility] Last Admin: 04/05/19 09:32 Dose: 5 mg Aspirin (Ecotrin -) 81 mg PO DAILY [facility] Last Admin: 04/05/19 09:31 Dose: 81 mg Diazepam (Valium -) 5 mg PO DAILY [facility] Last Admin: 04/05/19 09:32 Dose: 5 mg Enoxaparin Sodium (Lovenox -) 30 mg SQ BID [facility] Last Admin: 04/05/19 09:33 Dose: 30 mg Levothyroxine Sodium (Synthroid -) 25 mcg PO DAILY@0700 [facility] Last Admin: 04/05/19 06:27 Dose: 25 mcg Metoprolol Succinate (Toprol Xl -) 25 mg PO DAILY [facility] Last Admin: 04/05/19 09:32 Dose: 25 mg Pantoprazole Sodium (Protonix -) 40 mg PO BID [facility] Last Admin: 04/05/19 09:32 Dose: 40 mg Sertraline HCl (Zoloft -) 50 mg PO DAILY [facility] Last Admin: 04/05/19 09:33 Dose: 50 mg Zolpidem Tartrate (Ambien -) 5 mg PO HS PRN PRN Reason: INSOMNIA Last Admin: 04/04/19 21:43 Dose: 5 mg - Objective Vital Signs: Vital Signs Temperature 98.8 F 04/05/19 08:55 Pulse Rate 91 H 04/05/19 08:55 Respiratory Rate 20 04/05/19 08:55 Blood Pressure 140/63 04/05/19 08:55 O2 Sat by Pulse Oximetry (%) 98 04/04/19 21:00 Constitutional: Yes: No Distress, Calm Cardiovascular: Yes: S1, S2 Respiratory: Yes: Regular, CTA Bilaterally Gastrointestinal: Yes: Normal Bowel Sounds, Soft Musculoskeletal: Yes: WNL Extremities: Yes: WNL Wound/Incision: Yes: Dressing Dry and Intact Neurological: Yes: Alert, Oriented Psychiatric: Yes: Alert, Oriented Labs: CBC, BMP 04/04/19 08:02 04/04/19 08:02 Assessment/Plan POD #2 s/p ex-lap/SOPHIE/right hemicolectomy with primary anastamosis/colostomy closure with colo-rectal anastamosis/cecal tumor resection/loop ileostomy Acute Blood Loss Anemia CAD s/p CABG HTN Hyperlipidemia Hypothyroidism CKD Anxiety/Depression Diverticulitis S/P Hartmans 04/2018 plan continue current mgmt nutrition rest as per the team improving
--- NOTE | 2019-04-05 19:05 | PN ---
Progress Note, Physician History of Present Illness: Pt seen and examined at bedside. She is awake and alert. She appears comfortable. - Current Medication List Current Medications: Active Medications Acetaminophen (Tylenol -) 650 mg PO Q4H PRN PRN Reason: PAIN LEVEL 1-5 Last Admin: 04/05/19 18:15 Dose: 650 mg Amlodipine Besylate (Norvasc -) 5 mg PO DAILY [facility] Last Admin: 04/05/19 09:32 Dose: 5 mg Aspirin (Ecotrin -) 81 mg PO DAILY [facility] Last Admin: 04/05/19 09:31 Dose: 81 mg Diazepam (Valium -) 5 mg PO DAILY [facility] Last Admin: 04/05/19 09:32 Dose: 5 mg Enoxaparin Sodium (Lovenox -) 30 mg SQ BID [facility] Last Admin: 04/05/19 09:33 Dose: 30 mg Levothyroxine Sodium (Synthroid -) 25 mcg PO DAILY@0700 [facility] Last Admin: 04/05/19 06:27 Dose: 25 mcg Metoprolol Succinate (Toprol Xl -) 25 mg PO DAILY [facility] Last Admin: 04/05/19 09:32 Dose: 25 mg Pantoprazole Sodium (Protonix -) 40 mg PO BID [facility] Last Admin: 04/05/19 09:32 Dose: 40 mg Sertraline HCl (Zoloft -) 50 mg PO DAILY [facility] Last Admin: 04/05/19 09:33 Dose: 50 mg Zolpidem Tartrate (Ambien -) 5 mg PO HS PRN PRN Reason: INSOMNIA Last Admin: 04/04/19 21:43 Dose: 5 mg - Objective Vital Signs: Vital Signs Temperature 98.7 F 04/05/19 16:30 Pulse Rate 78 04/05/19 16:30 Respiratory Rate 20 04/05/19 16:30 Blood Pressure 126/57 L 04/05/19 16:30 O2 Sat by Pulse Oximetry (%) 98 04/04/19 21:00 Constitutional: Yes: Calm Eyes: Yes: Conjunctiva Clear HENT: Yes: Atraumatic Cardiovascular: Yes: S1, S2 Respiratory: Yes: CTA Bilaterally Gastrointestinal: Yes: Soft Genitourinary: Yes: WNL Musculoskeletal: Yes: WNL Edema: No Neurological: Yes: Oriented Psychiatric: Yes: Oriented Labs: CBC, BMP 04/04/19 08:02 04/04/19 08:02 Problem List - Problems (1) MARKIE (acute kidney injury) Code(s): N17.9 - ACUTE KIDNEY FAILURE, UNSPECIFIED Assessment/Plan Current Medications Generic Name Dose Route Start Last Admin Trade Name Freq PRN Reason Stop Dose Admin Acetaminophen 650 mg 04/04/19 19:18 04/05/19 18:15 Tylenol - PO 650 mg Q4H PRN Administration PAIN LEVEL 1-5 Amlodipine Besylate 5 mg 03/31/19 10:00 04/05/19 09:32 Norvasc - PO 5 mg DAILY [facility] Administration Aspirin 81 mg 03/31/19 10:00 04/05/19 09:31 Ecotrin - PO 81 mg DAILY [facility] Administration Diazepam 5 mg 03/31/19 10:00 04/05/19 09:32 Valium - PO 5 mg DAILY [facility] Administration Enoxaparin Sodium 30 mg 03/30/19 22:00 04/05/19 09:33 Lovenox - SQ 30 mg BID [facility] Administration Levothyroxine Sodium 25 mcg 03/31/19 07:00 04/05/19 06:27 Synthroid - PO 25 mcg DAILY@0700 [facility] Administration Metoprolol Succinate 25 mg 03/31/19 10:00 04/05/19 09:32 Toprol Xl - PO 25 mg DAILY [facility] Administration Pantoprazole Sodium 40 mg 03/30/19 22:00 04/05/19 09:32 Protonix - PO 40 mg BID [facility] Administration Sertraline HCl 50 mg 03/31/19 10:00 04/05/19 09:33 Zoloft - PO 50 mg DAILY [facility] Administration Zolpidem Tartrate 5 mg 04/04/19 19:18 04/04/19 21:43 Ambien - PO 5 mg HS PRN Administration INSOMNIA Impression 1. CKD 2. hyperkalemia 3. abdominal pain 4. hx of perforated diverticula 5. acidosis 6. hld 7. CAD 8. HTN 9. anxiety 10. 1.3 cm left adrenal nodule 11. 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 hx elevated light chains Plan - check bmp - avoid nsaids - lytes stable - will see in office - avoid nephrotoxins
[2019-04-05] MEDS: ZOLPIDEM TARTRATE 5 MG TABLET PO PRN (21:02)
--- NOTE | 2019-04-05 21:20 | PN ---
Progress Note, Physician History of Present Illness: Pt w/ some nausea today - Current Medication List Current Medications: Active Medications Acetaminophen (Tylenol -) 650 mg PO Q4H PRN PRN Reason: PAIN LEVEL 1-5 Last Admin: 04/05/19 18:15 Dose: 650 mg Amlodipine Besylate (Norvasc -) 5 mg PO DAILY [facility] Last Admin: 04/05/19 09:32 Dose: 5 mg Aspirin (Ecotrin -) 81 mg PO DAILY [facility] Last Admin: 04/05/19 09:31 Dose: 81 mg Diazepam (Valium -) 5 mg PO DAILY [facility] Last Admin: 04/05/19 09:32 Dose: 5 mg Enoxaparin Sodium (Lovenox -) 30 mg SQ BID [facility] Last Admin: 04/05/19 21:02 Dose: 30 mg Levothyroxine Sodium (Synthroid -) 25 mcg PO DAILY@0700 [facility] Last Admin: 04/05/19 06:27 Dose: 25 mcg Metoprolol Succinate (Toprol Xl -) 25 mg PO DAILY [facility] Last Admin: 04/05/19 09:32 Dose: 25 mg Pantoprazole Sodium (Protonix -) 40 mg PO BID [facility] Last Admin: 04/05/19 21:02 Dose: 40 mg Sertraline HCl (Zoloft -) 50 mg PO DAILY [facility] Last Admin: 04/05/19 09:33 Dose: 50 mg Zolpidem Tartrate (Ambien -) 5 mg PO HS PRN PRN Reason: INSOMNIA Last Admin: 04/05/19 21:02 Dose: 5 mg - Objective Vital Signs: Vital Signs Temperature 98.2 F 04/05/19 20:09 Pulse Rate 99 H 04/05/19 20:09 Respiratory Rate 20 04/05/19 20:09 Blood Pressure 81/34 L 04/05/19 20:09 O2 Sat by Pulse Oximetry (%) 98 04/04/19 21:00 Neck: Yes: WNL, Supple Cardiovascular: Yes: WNL, Regular Rate and Rhythm Respiratory: Yes: WNL, Regular, CTA Bilaterally Gastrointestinal: Yes: Normal Bowel Sounds, Soft, Abdomen, Obese, Other ((+) ileostomy) Labs: CBC, BMP 04/04/19 08:02 04/04/19 08:02 Problem List - Problems (1) Status post Anthony's procedure Assessment/Plan: Pt tolerating diet Cont wound care Spoke to pt at length today and pt is to be dc'ed to STR in am Tylenol prn pain Code(s): Z93.3 - COLOSTOMY STATUS (2) Anemia Assessment/Plan: Acute blood loss anemia H/H has remained stable Cont to monitor Code(s): D64.9 - ANEMIA, UNSPECIFIED (3) HTN (hypertension) Assessment/Plan: BP stable Cont norvasc/asa/metoprolol Code(s): I10 - ESSENTIAL (PRIMARY) HYPERTENSION Qualifiers: Hypertension type: essential hypertension Qualified Code(s): I10 - Essential (primary) hypertension (4) Hypothyroidism Assessment/Plan: Cont levothyroxine Code(s): E03.9 - HYPOTHYROIDISM, UNSPECIFIED Qualifiers: Hypothyroidism type: acquired Qualified Code(s): E03.9 - Hypothyroidism, unspecified (5) HLD (hyperlipidemia) Code(s): E78.5 - HYPERLIPIDEMIA, UNSPECIFIED
[2019-04-06] MEDS: LEVOTHYROXINE NA 25 MCG TABLET (FP) PO SCH (06:05)
[2019-04-06] MEDS: PANTOPRAZOLE 40 MG TABLET PO SCH (09:40)
[2019-04-06] MEDS: metoPROLOL SUCCINATE 25 MG TAB.SR.24H (FP) PO SCH (09:40)
[2019-04-06] MEDS: ENOXAPARIN NA (PORCINE) 30 MG/0.3 ML DISP.SYRIN SQ SCH (09:40)
[2019-04-06] MEDS: ASPIRIN COATED 81 MG TABLET.EC PO SCH (09:40)
[2019-04-06] MEDS: SERTRALINE HCL 50 MG TABLET (FP) PO SCH (09:40)
[2019-04-06] MEDS: amLODIPine BESYLATE 5 MG TABLET (FP) PO SCH (09:40)
[2019-04-06] MEDS: diazePAM 5 MG TABLET PO SCH (09:41)
[2019-04-06] MEDS: ACETAMINOPHEN 325 MG TABLET (FP) PO PRN (09:41)
[2019-04-06 09:54] LABS: BLOOD UREA NITROGEN 20.9 mg/dL (7-18); CALCIUM 8.3 mg/dL (8.5-10.1); CREATININE 1.6 mg/dL (0.55-1.3); POTASSIUM 4.4 mmol/L (3.5-5.1)
--- NOTE | 2019-04-06 11:24 | PN ---
Progress Note, Physician History of Present Illness: stable no new issues - Current Medication List Current Medications: Active Medications Acetaminophen (Tylenol -) 650 mg PO Q4H PRN PRN Reason: PAIN LEVEL 1-5 Last Admin: 04/06/19 09:41 Dose: 650 mg Amlodipine Besylate (Norvasc -) 5 mg PO DAILY [facility] Last Admin: 04/06/19 09:40 Dose: 5 mg Aspirin (Ecotrin -) 81 mg PO DAILY [facility] Last Admin: 04/06/19 09:40 Dose: 81 mg Diazepam (Valium -) 5 mg PO DAILY [facility] Last Admin: 04/06/19 09:41 Dose: 5 mg Enoxaparin Sodium (Lovenox -) 30 mg SQ BID [facility] Last Admin: 04/06/19 09:40 Dose: 30 mg Levothyroxine Sodium (Synthroid -) 25 mcg PO DAILY@0700 [facility] Last Admin: 04/06/19 06:05 Dose: 25 mcg Metoprolol Succinate (Toprol Xl -) 25 mg PO DAILY [facility] Last Admin: 04/06/19 09:40 Dose: 25 mg Pantoprazole Sodium (Protonix -) 40 mg PO BID [facility] Last Admin: 04/06/19 09:40 Dose: 40 mg Sertraline HCl (Zoloft -) 50 mg PO DAILY [facility] Last Admin: 04/06/19 09:40 Dose: 50 mg Zolpidem Tartrate (Ambien -) 5 mg PO HS PRN PRN Reason: INSOMNIA Last Admin: 04/05/19 21:02 Dose: 5 mg - Objective Vital Signs: Vital Signs Temperature 98.2 F 04/06/19 06:22 Pulse Rate 65 04/06/19 06:22 Respiratory Rate 20 04/06/19 06:22 Blood Pressure 122/65 04/06/19 06:22 O2 Sat by Pulse Oximetry (%) 98 04/05/19 21:00 Constitutional: Yes: No Distress, Calm Cardiovascular: Yes: S1, S2 Respiratory: Yes: Regular, CTA Bilaterally Gastrointestinal: Yes: Normal Bowel Sounds, Soft Musculoskeletal: Yes: WNL Extremities: Yes: WNL Labs: CBC, BMP 04/04/19 08:02 04/06/19 08:23 Assessment/Plan POD #2 s/p ex-lap/SOPHIE/right hemicolectomy with primary anastamosis/colostomy closure with colo-rectal anastamosis/cecal tumor resection/loop ileostomy Acute Blood Loss Anemia CAD s/p CABG HTN Hyperlipidemia Hypothyroidism CKD Anxiety/Depression Diverticulitis S/P Hartmans 04/2018 plan continue current mgmt nutrition rest as per the team improving
[2019-04-06] MEDS ORDERED: PT OWN MED DRAWER 7, Y5N ONE (12:47)
[2019-04-06] MEDS ORDERED: ONDANSETRON 4 MG TABLET PO PRN (12:56)
--- NOTE | 2019-04-06 13:39 | PN ---
Progress Note, Physician History of Present Illness: Pt seen and examined at bedside. SHe is awake and alert. She denies shortness of breath. - Current Medication List Current Medications: Active Medications Acetaminophen (Tylenol -) 650 mg PO Q4H PRN PRN Reason: PAIN LEVEL 1-5 Last Admin: 04/06/19 09:41 Dose: 650 mg Amlodipine Besylate (Norvasc -) 5 mg PO DAILY [facility] Last Admin: 04/06/19 09:40 Dose: 5 mg Aspirin (Ecotrin -) 81 mg PO DAILY [facility] Last Admin: 04/06/19 09:40 Dose: 81 mg Diazepam (Valium -) 5 mg PO DAILY [facility] Last Admin: 04/06/19 09:41 Dose: 5 mg Enoxaparin Sodium (Lovenox -) 30 mg SQ BID [facility] Last Admin: 04/06/19 09:40 Dose: 30 mg Levothyroxine Sodium (Synthroid -) 25 mcg PO DAILY@0700 [facility] Last Admin: 04/06/19 06:05 Dose: 25 mcg Metoprolol Succinate (Toprol Xl -) 25 mg PO DAILY [facility] Last Admin: 04/06/19 09:40 Dose: 25 mg Ondansetron HCl (Zofran -) 4 mg PO Q6H PRN PRN Reason: NAUSEA Last Admin: 04/06/19 13:20 Dose: 4 mg Pantoprazole Sodium (Protonix -) 40 mg PO BID [facility] Last Admin: 04/06/19 09:40 Dose: 40 mg Sertraline HCl (Zoloft -) 50 mg PO DAILY [facility] Last Admin: 04/06/19 09:40 Dose: 50 mg Zolpidem Tartrate (Ambien -) 5 mg PO HS PRN PRN Reason: INSOMNIA Last Admin: 04/05/19 21:02 Dose: 5 mg - Objective Vital Signs: Vital Signs Temperature 98.6 F 04/06/19 10:00 Pulse Rate 94 H 04/06/19 10:00 Respiratory Rate 20 04/06/19 10:00 Blood Pressure 115/58 L 04/06/19 10:00 O2 Sat by Pulse Oximetry (%) 95 04/06/19 09:00 Constitutional: Yes: Calm Eyes: Yes: Conjunctiva Clear HENT: Yes: Atraumatic Cardiovascular: Yes: S1, S2 Respiratory: Yes: CTA Bilaterally Gastrointestinal: Yes: Soft Genitourinary: Yes: WNL Musculoskeletal: Yes: WNL Edema: No Neurological: Yes: Oriented Psychiatric: Yes: Oriented Labs: CBC, BMP 04/04/19 08:02 04/06/19 08:23 Problem List - Problems (1) MARKIE (acute kidney injury) Code(s): N17.9 - ACUTE KIDNEY FAILURE, UNSPECIFIED Assessment/Plan Current Medications Generic Name Dose Route Start Last Admin Trade Name Freq PRN Reason Stop Dose Admin Acetaminophen 650 mg 04/04/19 19:18 04/06/19 09:41 Tylenol - PO 650 mg Q4H PRN Administration PAIN LEVEL 1-5 Amlodipine Besylate 5 mg 03/31/19 10:00 04/06/19 09:40 Norvasc - PO 5 mg DAILY MARY JANE Administration Aspirin 81 mg 03/31/19 10:00 04/06/19 09:40 Ecotrin - PO 81 mg DAILY MARY JANE Administration Diazepam 5 mg 03/31/19 10:00 04/06/19 09:41 Valium - PO 5 mg DAILY MARY JANE Administration Enoxaparin Sodium 30 mg 03/30/19 22:00 04/06/19 09:40 Lovenox - SQ 30 mg BID MARY JANE Administration Levothyroxine Sodium 25 mcg 03/31/19 07:00 04/06/19 06:05 Synthroid - PO 25 mcg DAILY@0700 MARY JANE Administration Metoprolol Succinate 25 mg 03/31/19 10:00 04/06/19 09:40 Toprol Xl - PO 25 mg DAILY MARY JANE Administration Ondansetron HCl 4 mg 04/06/19 12:56 04/06/19 13:20 Zofran - PO 4 mg Q6H PRN Administration NAUSEA Pantoprazole Sodium 40 mg 03/30/19 22:00 04/06/19 09:40 Protonix - PO 40 mg BID MARY JANE Administration Sertraline HCl 50 mg 03/31/19 10:00 04/06/19 09:40 Zoloft - PO 50 mg DAILY MARY JANE Administration Zolpidem Tartrate 5 mg 04/04/19 19:18 04/05/19 21:02 Ambien - PO 5 mg HS PRN Administration INSOMNIA Impression 1. CKD 2. hyperkalemia 3. abdominal pain 4. hx of perforated diverticula 5. acidosis 6. hld 7. CAD 8. HTN 9. anxiety 10. 1.3 cm left adrenal nodule 11. 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 hx elevated light chains Plan - labs reviewed - renal function is stable - avoid nsaids - lytes stable - will see in office - avoid nephrotoxins
[2019-04-06 20:06] VITALS: BP 124/69; PULSE 88; TEMP 98.1
== END 2019-04-06 20:08 | DRG 330 ==
LOC: JSAMEDAYSX 11:47 → JICU 21:03 → J6S 03-29 16:55 → J8W 03-29 17:02
PROVIDERS: ADMIT Internal Medicine; ATTEND Internal Medicine
PROC: 0DNE0ZZ Release Large Intestine, Open Approach (ICD-10-PCS; 2019-03-23)
PROC: 0JNC0ZZ Release Pelvic Region Subcutaneous Tissue and Fascia, Open Approach (ICD-10-PCS; 2019-03-23)
PROC: 0DSL0ZZ Reposition Transverse Colon, Open Approach (ICD-10-PCS; 2019-03-23)
PROC: 0WQF0ZZ Repair Abdominal Wall, Open Approach (ICD-10-PCS; 2019-03-23)
PROC: 0D1B0Z4 Bypass Ileum to Cutaneous, Open Approach (ICD-10-PCS; 2019-03-23)
PROC: 30233N1 Transfusion of Nonautologous Red Blood Cells into Peripheral Vein, Percutaneous Approach (ICD-10-PCS; 2019-03-23)
PROC: 0DTF0ZZ Resection of Right Large Intestine, Open Approach (ICD-10-PCS; principal; 2019-03-23 14:00)
DX: C18.9 Malignant neoplasm of colon, unspecified (principal); D62 Acute posthemorrhagic anemia; E87.2 Acidosis; N17.9 Acute kidney failure, unspecified; K57.90 Diverticulosis of intestine, part unspecified, without perforation or abscess without bleeding; I25.10 Atherosclerotic heart disease of native coronary artery without angina pectoris; N18.9 Chronic kidney disease, unspecified; E87.5 Hyperkalemia; E78.5 Hyperlipidemia, unspecified; K66.0 Peritoneal adhesions (postprocedural) (postinfection); Z95.1 Presence of aortocoronary bypass graft; E03.9 Hypothyroidism, unspecified; F41.8 Other specified anxiety disorders; E66.9 Obesity, unspecified; Z68.31 Body mass index [BMI] 31.0-31.9, adult; I12.9 Hypertensive chronic kidney disease with stage 1 through stage 4 chronic kidney disease, or unspecified chronic kidney disease; K21.9 Gastro-esophageal reflux disease without esophagitis; D72.829 Elevated white blood cell count, unspecified; K43.5 Parastomal hernia without obstruction or gangrene
CPT/HCPCS: 36415; 36430; 36511; 36600; 71045-TC-FY; 80048; 80053; 80076; 81003; 82570; 82803; 82962; 83735; 84100; 84156; 84443; 85025; 85027; 85730; 86850; 86900; 86901; 86922; 88304-TC; 88305-TC; 88309-TC; 88341-TC; 93005; 93010; 94002; 94640; 94760; 97116-GP; 97162-GP; J0131; J7030; P9038; P9058

== ENCOUNTER 2020-01-12 12:38 | Inpatient (IN) | payer OTHER ==
[2020-01-12 12:50] VITALS: BMI 32.3
[2020-01-12 15:02] LABS: BASO % 0.4 % (0-2.0); EOS % 0.4 % (0-4.5); MCHC 28.3 g/dl (32.0-36.0); MEAN CELL VOLUME 69.2 fl (80-96); MEAN PLT VOLUME 7.2 fl (7.5-11.1); MONO % 10.6 % (3.8-10.2); NEUT % 74.6 % (42.8-82.8); PLATELET COUNT 337 K/MM3 (134-434); RBC 2.02 M/mm3 (3.60-5.2); RDW 21.3 % (11.6-15.6)
[2020-01-12 15:10] LABS: INR 1.32 (0.83-1.09); PROTHROMBIN TIME (PATIENT) 15.8 SEC (9.7-13.0)
[2020-01-12 15:15] LABS: MCH 19.6 pg (25.7-33.7)
[2020-01-12 15:26] LABS: CHLORIDE 117 mmol/L (98-107); POTASSIUM 5.8 mmol/L (3.5-5.1); SODIUM 142 mmol/L (136-145)
[2020-01-12 15:29] LABS: ALBUMIN 2.8 g/dl (3.4-5.0); ANION GAP 6 MMOL/L (8-16); BLOOD UREA NITROGEN 29.7 mg/dL (7-18); CO2 19 mmol/L (21-32); GLUCOSE,RANDOM 99 mg/dL (74-106)
[2020-01-12 15:32] LABS: CREATININE 1.7 mg/dL (0.55-1.3); SGOT/AST 26 U/L (15-37); SGPT/ALT 22 U/L (13-61)
[2020-01-12 15:33] LABS: BILIRUBIN,TOTAL 0.4 mg/dL (0.2-1); TOT PROT 7.6 g/dl (6.4-8.2)
[2020-01-12 15:35] LABS: ALK PHOS 96 U/L (45-117)
[2020-01-12 15:57] LABS: ANISOCYTOSIS 2+; TEAR DROP CELLS 1+
[2020-01-12 15:58] LABS: PLATELET ESTIMATE ADEQUATE
[2020-01-12 16:55] LABS: EPI CELLS 14 /uL (0-25.1); HYALINE CASTS 3 /uL (0-3.1); URINE APPEARANCE CLEAR; URINE BACTERIA 49 /uL (0-1359); URINE BILIRUBIN NEGATIVE (NEGATIVE); URINE COLOR YELLOW; URINE GLUCOSE (UA) NEGATIVE (NEGATIVE); URINE KETONE NEGATIVE (NEGATIVE); URINE LEUK ESTERASE NEGATIVE (NEGATIVE); URINE NITRITE NEGATIVE (NEGATIVE); URINE PROTEIN 1+ (NEGATIVE); URINE RBC 24 /uL (0-23.9); URINE UROBILINOGEN 0.2 mg/dL (0.2-1.0); URINE WBC 7 /uL (0-25.8)
[2020-01-12] MEDS ORDERED: SIMETHICONE 80 MG TAB.CHEW (FP) PO PRN (22:47)
[2020-01-13 00:58] LABS: BASO % 0.8 % (0-2.0); EOS % 0.3 % (0-4.5); HEMATOCRIT 19.8 % (32.4-45.2); LYMPH % 22.3 % (8-40); MCH 21.1 pg (25.7-33.7); MCHC 28.5 g/dl (32.0-36.0); MEAN CELL VOLUME 74.1 fl (80-96); MEAN PLT VOLUME 7.1 fl (7.5-11.1); MONO % 10.9 % (3.8-10.2); NEUT % 65.7 % (42.8-82.8); PLATELET COUNT 303 K/MM3 (134-434); RBC 2.67 M/mm3 (3.60-5.2); RDW 23.2 % (11.6-15.6); WHITE BLOOD COUNT 11.1 K/mm3 (4.0-10.0)
[2020-01-13 01:08] LABS: HEMOGLOBIN 5.6 GM/dL (10.7-15.3)
[2020-01-13] MEDS: LEVOTHYROXINE NA 25 MCG TABLET (FP) PO SCH (09:00)
[2020-01-13] MEDS: SERTRALINE HCL 50 MG TABLET (FP) PO SCH (09:25)
[2020-01-13] MEDS: diazePAM 5 MG TABLET PO SCH ×2 (09:25→21:46)
[2020-01-13] MEDS ORDERED: amLODIPine BESYLATE 5 MG TABLET (FP) PO SCH (10:00)
[2020-01-13] MEDS: metoPROLOL SUCCINATE 25 MG TAB.SR.24H (FP) PO SCH (10:01)
[2020-01-13] MEDS: FUROSEMIDE 40 MG/4 ML INJECTABLE VIAL IVPUSH SCH (10:02)
[2020-01-13] MEDS: FERROUS SO4 325 MG TABLET (FP) PO SCH (10:02)
[2020-01-13 11:17] LABS: HEMATOCRIT 19.7 % (32.4-45.2); HEMOGLOBIN 5.9 GM/dL (10.7-15.3); MCH 22.3 pg (25.7-33.7); MEAN CELL VOLUME 74.2 fl (80-96); MEAN PLT VOLUME 7.2 fl (7.5-11.1); PLATELET COUNT 303 K/MM3 (134-434); RBC 2.65 M/mm3 (3.60-5.2); RDW 23.5 % (11.6-15.6); WHITE BLOOD COUNT 10.7 K/mm3 (4.0-10.0)
[2020-01-13 11:20] LABS: POTASSIUM 5.4 mmol/L (3.5-5.1)
[2020-01-13 11:23] LABS: ALBUMIN 2.6 g/dl (3.4-5.0); CALCIUM 7.9 mg/dL (8.5-10.1)
[2020-01-13 11:24] LABS: BLOOD UREA NITROGEN 28.4 mg/dL (7-18)
[2020-01-13 11:27] LABS: CREATININE 1.5 mg/dL (0.55-1.3)
[2020-01-13 11:28] LABS: BILIRUBIN,TOTAL 0.7 mg/dL (0.2-1)
[2020-01-13] MEDS ORDERED: FUROSEMIDE 40 MG/4 ML INJECTABLE VIAL IVPUSH ONE ×2 (13:29→14:32)
[2020-01-13] MEDS ORDERED: amLODIPine BESYLATE 5 MG TABLET (FP) PO ONE (14:30)
[2020-01-13] MEDS ORDERED: SODIUM ZIRCONIUM CYCLOSILICATE (LOKELMA) 5 GM PACKET PO ONE (14:31)
[2020-01-13 19:43] LABS: HEMATOCRIT 24.1 % (32.4-45.2); HEMOGLOBIN 7.3 GM/dL (10.7-15.3); MCH 23.1 pg (25.7-33.7); MCHC 30.2 g/dl (32.0-36.0); MEAN CELL VOLUME 76.3 fl (80-96); MEAN PLT VOLUME 7.2 fl (7.5-11.1); PLATELET COUNT 297 K/MM3 (134-434); RBC 3.16 M/mm3 (3.60-5.2); RDW 23.5 % (11.6-15.6); WHITE BLOOD COUNT 11.5 K/mm3 (4.0-10.0)
[2020-01-13 20:06] LABS: POTASSIUM 4.6 mmol/L (3.5-5.1)
[2020-01-13 20:07] LABS: CALCIUM 8.1 mg/dL (8.5-10.1)
[2020-01-13 20:08] LABS: BLOOD UREA NITROGEN 27.4 mg/dL (7-18)
[2020-01-13 20:12] LABS: CREATININE 1.6 mg/dL (0.55-1.3)
[2020-01-13] MEDS: PANTOPRAZOLE 40 MG TABLET PO SCH (21:46)
[2020-01-14] MEDS: LEVOTHYROXINE NA 25 MCG TABLET (FP) PO SCH (08:28)
[2020-01-14] MEDS: diazePAM 5 MG TABLET PO SCH ×2 (09:44→22:25)
[2020-01-14] MEDS: SERTRALINE HCL 50 MG TABLET (FP) PO SCH (09:44)
[2020-01-14] MEDS: FUROSEMIDE 40 MG/4 ML INJECTABLE VIAL IVPUSH SCH (09:44)
[2020-01-14] MEDS: FERROUS SO4 325 MG TABLET (FP) PO SCH (09:45)
[2020-01-14] MEDS: PANTOPRAZOLE 40 MG TABLET PO SCH ×2 (09:45→22:25)
[2020-01-14] MEDS: amLODIPine BESYLATE 5 MG TABLET (FP) PO SCH (09:45)
[2020-01-14] MEDS: metoPROLOL SUCCINATE 25 MG TAB.SR.24H (FP) PO SCH (09:45)
[2020-01-14] MEDS ORDERED: ACETAMINOPHEN 1000 MG/100 ML VIAL (NON FORMULARY) IVPB PRN (17:02)
[2020-01-15] MEDS: LEVOTHYROXINE NA 25 MCG TABLET (FP) PO SCH (06:10)
[2020-01-15 07:11] LABS: BASO % 0.3 % (0-2.0); EOS % 0.9 % (0-4.5); HEMATOCRIT 23.9 % (32.4-45.2); HEMOGLOBIN 7.3 GM/dL (10.7-15.3); MCH 23.3 pg (25.7-33.7); MCHC 30.7 g/dl (32.0-36.0); MONO % 10.8 % (3.8-10.2); PLATELET COUNT 307 K/MM3 (134-434); RBC 3.14 M/mm3 (3.60-5.2); WHITE BLOOD COUNT 9.2 K/mm3 (4.0-10.0)
[2020-01-15 08:07] LABS: POTASSIUM 4.2 mmol/L (3.5-5.1)
[2020-01-15 08:40] LABS: CALCIUM 7.7 mg/dL (8.5-10.1)
[2020-01-15 08:41] LABS: ALBUMIN 2.5 g/dl (3.4-5.0); BLOOD UREA NITROGEN 28.1 mg/dL (7-18)
[2020-01-15 08:44] LABS: CREATININE 1.6 mg/dL (0.55-1.3)
[2020-01-15 08:45] LABS: BILIRUBIN,TOTAL 0.7 mg/dL (0.2-1); TOT PROT 6.5 g/dl (6.4-8.2)
[2020-01-15] MEDS: SERTRALINE HCL 50 MG TABLET (FP) PO SCH (11:05)
[2020-01-15] MEDS: metoPROLOL SUCCINATE 25 MG TAB.SR.24H (FP) PO SCH (11:05)
[2020-01-15] MEDS: amLODIPine BESYLATE 5 MG TABLET (FP) PO SCH (11:05)
[2020-01-15] MEDS: FUROSEMIDE 40 MG/4 ML INJECTABLE VIAL IVPUSH SCH (11:05)
[2020-01-15] MEDS: PANTOPRAZOLE 40 MG TABLET PO SCH ×2 (11:05→21:51)
[2020-01-15] MEDS: FERROUS SO4 325 MG TABLET (FP) PO SCH (11:05)
[2020-01-15] MEDS: diazePAM 5 MG TABLET PO SCH ×2 (11:05→21:51)
[2020-01-16] MEDS: LEVOTHYROXINE NA 25 MCG TABLET (FP) PO SCH (06:27)
[2020-01-16] MEDS ORDERED: PT OWN MED DRAWER 7, Y5N ONE (09:47)
[2020-01-16] MEDS: FERROUS SO4 325 MG TABLET (FP) PO SCH (10:11)
[2020-01-16] MEDS: FUROSEMIDE 40 MG/4 ML INJECTABLE VIAL IVPUSH SCH (10:11)
[2020-01-16] MEDS: PANTOPRAZOLE 40 MG TABLET PO SCH ×2 (10:11→21:31)
[2020-01-16] MEDS: amLODIPine BESYLATE 5 MG TABLET (FP) PO SCH (10:11)
[2020-01-16] MEDS: metoPROLOL SUCCINATE 25 MG TAB.SR.24H (FP) PO SCH (10:11)
[2020-01-16] MEDS: SERTRALINE HCL 50 MG TABLET (FP) PO SCH (10:11)
[2020-01-16] MEDS: diazePAM 5 MG TABLET PO SCH ×2 (10:11→21:31)
[2020-01-16] MEDS: SIMETHICONE 80 MG TAB.CHEW (FP) PO SCH ×3 (13:36→21:31)
[2020-01-17] MEDS: SIMETHICONE 80 MG TAB.CHEW (FP) PO SCH ×6 (00:43→21:49)
[2020-01-17] MEDS: LEVOTHYROXINE NA 25 MCG TABLET (FP) PO SCH (06:13)
[2020-01-17 07:20] LABS: BASO % 0.6 % (0-2.0); EOS % 1.2 % (0-4.5); HEMATOCRIT 33.1 % (32.4-45.2); HEMOGLOBIN 10.4 GM/dL (10.7-15.3); MCH 24.4 pg (25.7-33.7); MCHC 31.3 g/dl (32.0-36.0); MEAN CELL VOLUME 77.7 fl (80-96); MEAN PLT VOLUME 7.1 fl (7.5-11.1); MONO % 9.9 % (3.8-10.2); NEUT % 65.3 % (42.8-82.8); PLATELET COUNT 306 K/MM3 (134-434); RBC 4.25 M/mm3 (3.60-5.2); RDW 25.7 % (11.6-15.6); WHITE BLOOD COUNT 11.1 K/mm3 (4.0-10.0)
[2020-01-17 07:23] LABS: POTASSIUM 3.8 mmol/L (3.5-5.1)
[2020-01-17 07:29] LABS: ALBUMIN 2.9 g/dl (3.4-5.0); BLOOD UREA NITROGEN 27.5 mg/dL (7-18); CALCIUM 8.4 mg/dL (8.5-10.1)
[2020-01-17 07:32] LABS: CREATININE 1.4 mg/dL (0.55-1.3)
[2020-01-17 07:34] LABS: BILIRUBIN,TOTAL 1.2 mg/dL (0.2-1); TOT PROT 7.4 g/dl (6.4-8.2)
[2020-01-17 09:49] LABS: ANISOCYTOSIS 2+; MACROCYTOSIS 1+; PLATELET ESTIMATE NORMAL
[2020-01-17] MEDS: FUROSEMIDE 40 MG/4 ML INJECTABLE VIAL IVPUSH SCH (10:45)
[2020-01-17] MEDS: FERROUS SO4 325 MG TABLET (FP) PO SCH (10:46)
[2020-01-17] MEDS: SERTRALINE HCL 50 MG TABLET (FP) PO SCH (10:46)
[2020-01-17] MEDS: PANTOPRAZOLE 40 MG TABLET PO SCH ×2 (10:46→21:49)
[2020-01-17] MEDS: amLODIPine BESYLATE 5 MG TABLET (FP) PO SCH (10:46)
[2020-01-17] MEDS: diazePAM 5 MG TABLET PO SCH ×2 (10:46→21:49)
[2020-01-17] MEDS: metoPROLOL SUCCINATE 25 MG TAB.SR.24H (FP) PO SCH (10:46)
[2020-01-17] MEDS ORDERED: LISINOPRIL 5 MG TABLET PO ONE (12:33)
[2020-01-18] MEDS: SIMETHICONE 80 MG TAB.CHEW (FP) PO SCH ×4 (02:00→14:27)
[2020-01-18] MEDS: LEVOTHYROXINE NA 25 MCG TABLET (FP) PO SCH (06:28)
[2020-01-18] MEDS ORDERED: PT OWN MED DRAWER 7, Y5N ONE (09:19)
[2020-01-18] MEDS: amLODIPine BESYLATE 5 MG TABLET (FP) PO SCH (09:22)
[2020-01-18] MEDS: diazePAM 5 MG TABLET PO SCH (09:22)
[2020-01-18] MEDS: PANTOPRAZOLE 40 MG TABLET PO SCH (09:22)
[2020-01-18] MEDS: SERTRALINE HCL 50 MG TABLET (FP) PO SCH (09:22)
[2020-01-18] MEDS: FERROUS SO4 325 MG TABLET (FP) PO SCH (09:23)
[2020-01-18] MEDS: metoPROLOL SUCCINATE 25 MG TAB.SR.24H (FP) PO SCH (09:23)
[2020-01-18] MEDS: FUROSEMIDE 40 MG/4 ML INJECTABLE VIAL IVPUSH SCH (09:24)
[2020-01-18] MEDS ORDERED: LISINOPRIL 5 MG TABLET PO SCH (10:00)
[2020-01-18 14:20] VITALS: BP 133/77; PULSE 92; TEMP 98.4
[2020-01-19] MEDS ORDERED: FUROSEMIDE 40 MG TABLET (FP) PO SCH (10:00)
== END 2020-01-18 16:00 | disposition home health service (06) | DRG 811 ==
LOC: SUPCPDRO 12:38 → JER 12:38 → JERBED 17:52 → JICU 01-13 06:46 → J4S 01-15 01:40
PROVIDERS: ADMIT Internal Medicine; ATTEND Internal Medicine
PROC: 30233N1 Transfusion of Nonautologous Red Blood Cells into Peripheral Vein, Percutaneous Approach (ICD-10-PCS; principal; 2020-01-12)
DX: D64.9 Anemia, unspecified (principal); I50.31 Acute diastolic (congestive) heart failure; I13.0 Hypertensive heart and chronic kidney disease with heart failure and stage 1 through stage 4 chronic kidney disease, or unspecified chronic kidney disease; E87.2 Acidosis; N18.9 Chronic kidney disease, unspecified; T39.015A Adverse effect of aspirin, initial encounter; Z93.3 Colostomy status; E87.5 Hyperkalemia; E78.5 Hyperlipidemia, unspecified; K21.9 Gastro-esophageal reflux disease without esophagitis; F41.8 Other specified anxiety disorders; E03.9 Hypothyroidism, unspecified; E66.9 Obesity, unspecified; Z68.32 Body mass index [BMI] 32.0-32.9, adult; I25.119 Atherosclerotic heart disease of native coronary artery with unspecified angina pectoris; Z95.1 Presence of aortocoronary bypass graft
CPT/HCPCS: 36415; 36430; 71045-TC-FY; 80048; 80053; 81003; 82272; 82607; 82746; 82962; 83010; 83615; 83880; 84443; 84484; 85025; 85027; 85045; 85610; 85730; 86850; 86900; 86901; 86922; 87086; 93005; 93010; 93306-TC; 93308; 97116-GP; 97161-GP; 99285-25; C9803; P9058; U0003

== ENCOUNTER 2022-05-24 11:02 | Inpatient (IN) | payer OTHER ==
[2022-05-24 11:31] VITALS: BMI 29.0
[2022-05-24] MEDS ORDERED: ONDANSETRON 4 MG/2 ML VIAL IVPUSH ONE ×2 (12:22→13:21)
[2022-05-24] MEDS ORDERED: PANTOPRAZOLE SODIUM 40 MG in SODIUM CHLORIDE 100 ML IVPB ONE (12:23)
[2022-05-24] MEDS ORDERED: FAMOTIDINE 20 MG/50 ML IVPB 20 MG in PREMIX 50 IVPB ONE (12:23)
[2022-05-24] MEDS ORDERED: SODIUM CHLORIDE 0.9% 500 ML INFUS.BAG IV ONE ×3 (12:23→19:44)
[2022-05-24] MEDS ORDERED: PANTOPRAZOLE SODIUM 40 MG/100 ML BAG IVPB ONE (12:30)
[2022-05-24] MEDS ORDERED: ONDANSETRON 4 MG/2 ML VIAL ONE ×2 (12:30→13:27)
[2022-05-24] MEDS ORDERED: FAMOTIDINE 20 MG/50 ML IVPB 20 MG/50 ML MG IVPB ONE ×2 (12:30→12:38)
[2022-05-24 13:05] LABS: HEMATOCRIT 30.3 % (32.4-45.2); HEMOGLOBIN 9.9 GM/dL (10.7-15.3); MCH 27.7 pg (25.7-33.7); MCHC 32.6 g/dl (32.0-36.0); MEAN PLT VOLUME 8.2 fl (7.5-11.1); PLATELET COUNT 358 10^3/uL (134-434); RBC 3.57 M/mm3 (3.60-5.2); RDW 15.2 % (11.6-15.6); VENOUS BASE EXCESS -12.9 mmol/L (-2-2); VENOUS O2 SATURATION 39.8 % (70-80); VENOUS PCO2 40.6 mmHg (38-52); WHITE BLOOD COUNT 24.6 K/mm3 (4.0-10.0)
[2022-05-24 13:07] LABS: VENOUS PH 7.178 (7.310-7.410)
[2022-05-24 13:11] LABS: INR 1.31 (0.83-1.09); PROTHROMBIN TIME (PATIENT) 15.1 SEC (9.7-13.0)
[2022-05-24 13:13] LABS: ACTIVATED PTT 30.2 SECONDS (25.2-36.5)
[2022-05-24] MEDS ORDERED: ONDANSETRON 4 MG/2 ML VIAL IVPB ONE (13:21)
[2022-05-24 13:22] LABS: BLOOD UREA NITROGEN 42.9 mg/dL (7-18); CALCIUM 9.7 mg/dL (8.5-10.1)
[2022-05-24 13:25] LABS: CREATININE 3.5 mg/dL (0.55-1.3)
[2022-05-24 13:27] LABS: BILIRUBIN,TOTAL 0.3 mg/dL (0.2-1); TOT PROT 10.2 g/dl (6.4-8.2)
[2022-05-24 13:37] LABS: LACTIC ACID 4.4 mmol/L (0.4-2.0)
[2022-05-24] MEDS ORDERED: LACTATED RINGERS SOLUTION 1000 ML INFUS.BAG IV ONE ×3 (13:37→15:03)
[2022-05-24 14:27] LABS: ANISOCYTOSIS 0; HELMET CELLS 0; HOWELL-JOLLY BODIES 0; MACROCYTOSIS 0; OVALOCYTE 0; ROULEAU 0; SICKELED CELLS 0; TARGET CELLS 0; TEAR DROP CELLS 0; TOXIC GRANULATION 0
[2022-05-24] MEDS ORDERED: VANCOMYCIN 1 GM in D5W (PRE-DOCKED) 1,000 MG/250 ML IVPB ONE (14:34)
[2022-05-24] MEDS ORDERED: PIPERACILLIN/TAZOB 4.5 GM 4.5 GM in DEXTROSE 5%-WATER 100 ML IVPB ONE (14:34)
[2022-05-24] MEDS ORDERED: PIPERACILLIN/TAZOB 4.5 GM 4.5 GM/100 ML BAG IVPB ONE (14:53)
[2022-05-24] MEDS ORDERED: VANCOMYCIN/WATER FOR INJ (PEG) 1,000 MG/200 ML BAG IVPB ONE (14:54)
[2022-05-24 14:58] LABS: VENOUS BASE EXCESS -11.4 mmol/L (-2-2); VENOUS O2 SATURATION 32.4 % (70-80); VENOUS PCO2 46.2 mmHg (38-52)
[2022-05-24 15:02] LABS: VENOUS PH 7.172 (7.310-7.410)
[2022-05-24] MEDS ORDERED: LIDOCAINE VISCOUS 2% ORAL/TOP 15 ML UNIT-DOSE CUP ONE (16:00)
[2022-05-24] MEDS ORDERED: morphine SULFATE 4 MG/ML VIAL ONE (16:00)
[2022-05-24 16:01] LABS: LACTIC ACID 2.8 mmol/L (0.4-2.0)
[2022-05-24] MEDS ORDERED: LIDOCAINE HCL 2% JELLY 6 ML TP ONE (16:01)
[2022-05-24] MEDS ORDERED: LIDOCAINE HCL 2% JELLY 10 ML CARTRIDGE UR ONE (16:24)
[2022-05-24] MEDS ORDERED: morphine CARPU-JECT 4 MG/1 ML DISP.SYRIN IVPUSH ONE (16:24)
[2022-05-24] MEDS ORDERED: HURRICAINE SP EXT TUBE 1 EA EACH TP ONE (18:27)
[2022-05-24] MEDS ORDERED: BENZOCAINE 20% 57 GM BOTTLE TP ONE (18:29)
[2022-05-25] MEDS ORDERED: IPRATROPIUM BR 0.02% 0.5 MG/2.5 ML VIAL.NEB. NEB PRN (01:58)
[2022-05-25] MEDS ORDERED: ONDANSETRON 4 MG/2 ML VIAL IVPUSH PRN (01:58)
[2022-05-25] MEDS ORDERED: DEXTROSE 5%-0.45% SALINE 1,000 ML IV SCH ×2 (02:00→11:00)
[2022-05-25] MEDS ORDERED: PIPERACILLIN/TAZOB 3.375 GM 3.375 GM in DEXTROSE 5%-WATER - 50 ML IVPB SCH (02:00)
[2022-05-25] MEDS: PIPERACILLIN/TAZOB 3.375 GM 3.375 GM in DEXTROSE 5%-WATER - 50 ML IVPB SCH ×2 (04:00→11:14)
[2022-05-25] MEDS: LEVOTHYROXINE NA 25 MCG TABLET (FP) NGT SCH (06:59)
[2022-05-25 07:39] LABS: BASO % 0.2 % (0-2.0); HEMATOCRIT 26.5 % (32.4-45.2); HEMOGLOBIN 8.6 GM/dL (10.7-15.3); LYMPH % 6.4 % (8-40); MCHC 32.7 g/dl (32.0-36.0); MEAN CELL VOLUME 85.7 fl (80-96); MEAN PLT VOLUME 8.6 fl (7.5-11.1); MONO % 12.6 % (3.8-10.2); NEUT % 80.8 % (42.8-82.8); PLATELET COUNT 208 10^3/uL (134-434); RBC 3.09 M/mm3 (3.60-5.2); RDW 15.4 % (11.6-15.6); WHITE BLOOD COUNT 19.3 K/mm3 (4.0-10.0)
[2022-05-25 07:58] LABS: CHLORIDE 113 mmol/L (98-107); SODIUM 137 mmol/L (136-145)
[2022-05-25 08:02] LABS: CO2 16 mmol/L (21-32); GLUCOSE,RANDOM 150 mg/dL (74-106)
[2022-05-25 08:04] LABS: AMYLASE 172 U/L (25-115); LIPASE 298 U/L (73-393)
[2022-05-25 08:06] LABS: CREATININE 4.5 mg/dL (0.55-1.3); SGOT/AST 33 U/L (15-37); SGPT/ALT 29 U/L (13-61)
[2022-05-25 08:08] LABS: BILIRUBIN,TOTAL 0.3 mg/dL (0.2-1)
[2022-05-25 08:20] LABS: ALBUMIN 3.2 g/dl (3.4-5.0); ALK PHOS 89 U/L (45-117); ANION GAP 9 MMOL/L (8-16); TOT PROT 7.7 g/dl (6.4-8.2)
[2022-05-25] MEDS ORDERED: LISINOPRIL 5 MG TABLET NGT SCH (10:00)
[2022-05-25] MEDS ORDERED: FUROSEMIDE 40 MG TABLET (FP) NGT SCH (10:00)
[2022-05-25] MEDS ORDERED: SODIUM CHLORIDE 1,000 ML IV STA (10:03)
[2022-05-25] MEDS ORDERED: CALCIUM GLUCONATE 10% - 1,000 MG/10 ML VIAL IVPB ONE (10:06)
[2022-05-25] MEDS ORDERED: DEXTROSE 50%-WATER - 25 GM/50 ML VIAL IVPUSH ONE (10:06)
[2022-05-25] MEDS ORDERED: INSULIN REGULAR HUMAN 100 UNITS/ML *VIAL IVPUSH ONE (10:06)
[2022-05-25] MEDS ORDERED: SODIUM CHLORIDE 1,000 ML IV SCH (10:15)
[2022-05-25] MEDS ORDERED: DEXTROSE 50%-WATER 25 GM/50 ML DISP.SYRIN IVPUSH ONE (10:15)
[2022-05-25] MEDS ORDERED: INSULIN (NOVOLOG) ASPART 100 UNITS/ML 10ML VIAL SQ ONE (10:30)
[2022-05-25] MEDS ORDERED: SODIUM CHLORIDE 0.9% 500 ML INFUS.BAG IV ONE (10:31)
[2022-05-25] MEDS: ENOXAPARIN NA (PORCINE) 30 MG/0.3 ML DISP.SYRIN SQ SCH (11:15)
[2022-05-25] MEDS: amLODIPine BESYLATE 5 MG TABLET (FP) NGT SCH (11:15)
[2022-05-25] MEDS: diazePAM 5 MG TABLET NGT SCH ×2 (11:15→21:38)
[2022-05-25] MEDS: PANTOPRAZOLE SODIUM 40 MG VIAL IVPUSH SCH (11:16)
[2022-05-25] MEDS: SERTRALINE HCL 50 MG TABLET (FP) NGT SCH (11:16)
[2022-05-25] MEDS: SODIUM BICARBONATE 8.4% - 150 MEQ in DEXTROSE 5%-WATER - 1,000 ML IV SCH (12:29)
[2022-05-25] MEDS: ACETAMINOPHEN 1000 MG/100 ML BAG IVPB PRN ×2 (13:27→21:39)
[2022-05-25 15:39] LABS: CALCIUM 7.6 mg/dL (8.5-10.1)
[2022-05-25] MEDS: PIPERACILLIN/TAZOB 2.25 GM 2.25 GM in DEXTROSE 5%-WATER - 50 ML IVPB SCH (18:28)
[2022-05-25 22:15] LABS: BLOOD UREA NITROGEN 83.5 mg/dL (7-18)
[2022-05-25 22:16] LABS: CALCIUM 7.9 mg/dL (8.5-10.1)
[2022-05-25 22:19] LABS: CREATININE 5.4 mg/dL (0.55-1.3)
[2022-05-26] MEDS: PIPERACILLIN/TAZOB 2.25 GM 2.25 GM in DEXTROSE 5%-WATER - 50 ML IVPB SCH ×3 (03:06→17:31)
[2022-05-26] MEDS: LEVOTHYROXINE NA 25 MCG TABLET (FP) NGT SCH (06:09)
[2022-05-26] MEDS: SODIUM BICARBONATE 8.4% - 150 MEQ in DEXTROSE 5%-WATER - 1,000 ML IV SCH ×2 (06:12→14:20)
[2022-05-26 09:02] LABS: HEMATOCRIT 23.7 % (32.4-45.2); HEMOGLOBIN 7.8 GM/dL (10.7-15.3); MCH 27.9 pg (25.7-33.7); MCHC 32.9 g/dl (32.0-36.0); MEAN CELL VOLUME 84.7 fl (80-96); MEAN PLT VOLUME 8.2 fl (7.5-11.1); PLATELET COUNT 167 10^3/uL (134-434); RDW 15.3 % (11.6-15.6); WHITE BLOOD COUNT 9.5 K/mm3 (4.0-10.0)
[2022-05-26 09:10] LABS: CALCIUM 7.5 mg/dL (8.5-10.1)
[2022-05-26 09:12] LABS: ALBUMIN 2.7 g/dl (3.4-5.0); BILIRUBIN,TOTAL 0.7 mg/dL (0.2-1); BLOOD UREA NITROGEN 89.1 mg/dL (7-18); TOT PROT 6.8 g/dl (6.4-8.2)
[2022-05-26 09:14] LABS: CREATININE 5.5 mg/dL (0.55-1.3)
[2022-05-26] MEDS: ENOXAPARIN NA (PORCINE) 30 MG/0.3 ML DISP.SYRIN SQ SCH (09:38)
[2022-05-26] MEDS: PANTOPRAZOLE SODIUM 40 MG VIAL IVPUSH SCH (09:38)
[2022-05-26] MEDS: SERTRALINE HCL 50 MG TABLET (FP) NGT SCH (09:39)
[2022-05-26] MEDS: amLODIPine BESYLATE 5 MG TABLET (FP) NGT SCH (09:39)
[2022-05-26] MEDS: diazePAM 5 MG TABLET NGT SCH ×2 (09:39→21:24)
[2022-05-26 09:58] LABS: ANISOCYTOSIS 1+; MACROCYTOSIS 0
[2022-05-26] MEDS: ACETAMINOPHEN 1000 MG/100 ML BAG IVPB PRN ×2 (12:33→20:40)
[2022-05-26] MEDS ORDERED: DEXTROSE 5%-0.45% SALINE 950 ML with SODIUM BICARBONATE 8.4% - 50 MEQ IV SCH (15:30)
[2022-05-26] MEDS: SODIUM BICARBONATE 8.4% - 50 MEQ in DEXTROSE 5%-0.45% SALINE 950 ML IV SCH (22:09)
[2022-05-27] MEDS: PIPERACILLIN/TAZOB 2.25 GM 2.25 GM in DEXTROSE 5%-WATER - 50 ML IVPB SCH ×3 (02:18→17:18)
[2022-05-27] MEDS: LEVOTHYROXINE NA 25 MCG TABLET (FP) NGT SCH (06:27)
[2022-05-27] MEDS: SODIUM BICARBONATE 8.4% - 50 MEQ in DEXTROSE 5%-0.45% SALINE 950 ML IV SCH (06:37)
[2022-05-27 07:27] LABS: HEMATOCRIT 20.2 % (32.4-45.2); MCH 28.3 pg (25.7-33.7); MCHC 33.7 g/dl (32.0-36.0); MEAN CELL VOLUME 83.8 fl (80-96); MEAN PLT VOLUME 8.1 fl (7.5-11.1); PLATELET COUNT 153 10^3/uL (134-434); RBC 2.42 M/mm3 (3.60-5.2); RDW 15.3 % (11.6-15.6); WHITE BLOOD COUNT 8.5 K/mm3 (4.0-10.0)
[2022-05-27 07:36] LABS: HEMOGLOBIN 6.8 GM/dL (10.7-15.3)
[2022-05-27 07:52] LABS: CHLORIDE 105 mmol/L (98-107); SODIUM 138 mmol/L (136-145)
[2022-05-27 08:00] LABS: ALBUMIN 2.4 g/dl (3.4-5.0); ANION GAP 9 MMOL/L (8-16); BLOOD UREA NITROGEN 95.2 mg/dL (7-18); CO2 24 mmol/L (21-32); GLUCOSE,RANDOM 123 mg/dL (74-106)
[2022-05-27 08:02] LABS: CREATININE 5.7 mg/dL (0.55-1.3)
[2022-05-27 08:03] LABS: SGOT/AST 31 U/L (15-37); SGPT/ALT 30 U/L (13-61)
[2022-05-27] MEDS: ACETAMINOPHEN 1000 MG/100 ML BAG IVPB PRN (08:03)
[2022-05-27 08:04] LABS: BILIRUBIN,TOTAL 0.5 mg/dL (0.2-1); TOT PROT 6.3 g/dl (6.4-8.2)
[2022-05-27 08:05] LABS: ALK PHOS 64 U/L (45-117)
[2022-05-27 08:16] LABS: CALCIUM 6.8 mg/dL (8.5-10.1)
[2022-05-27] MEDS: SERTRALINE HCL 50 MG TABLET (FP) NGT SCH (10:30)
[2022-05-27] MEDS: diazePAM 5 MG TABLET NGT SCH ×2 (10:30→21:20)
[2022-05-27] MEDS: amLODIPine BESYLATE 5 MG TABLET (FP) NGT SCH ×2 (10:31→10:48)
[2022-05-27] MEDS: PANTOPRAZOLE SODIUM 40 MG VIAL IVPUSH SCH (10:31)
[2022-05-27] MEDS: ENOXAPARIN NA (PORCINE) 30 MG/0.3 ML DISP.SYRIN SQ SCH (10:31)
[2022-05-27] MEDS ORDERED: PHENOL 177 ML SPRAY BOTTLE MM PRN (13:17)
[2022-05-27] MEDS ORDERED: ACETAMINOPHEN 1000 MG/100 ML BAG IVPB PRN (13:42)
[2022-05-27] MEDS: LACTATED RINGERS SOLUTION 1,000 ML/1,000 ML INFUS.BAG IV SCH (14:45)
[2022-05-28] MEDS: PIPERACILLIN/TAZOB 2.25 GM 2.25 GM in DEXTROSE 5%-WATER - 50 ML IVPB SCH ×3 (02:51→17:06)
[2022-05-28] MEDS: LEVOTHYROXINE NA 25 MCG TABLET (FP) NGT SCH ×2 (06:34→06:41)
[2022-05-28 07:44] LABS: BASO % 0.2 % (0-2.0); EOS % 0.7 % (0-4.5); HEMATOCRIT 27.8 % (32.4-45.2); HEMOGLOBIN 9.5 GM/dL (10.7-15.3); LYMPH % 14.6 % (8-40); MCH 27.8 pg (25.7-33.7); MCHC 34.1 g/dl (32.0-36.0); MEAN CELL VOLUME 81.4 fl (80-96); MEAN PLT VOLUME 8.1 fl (7.5-11.1); MONO % 15.3 % (3.8-10.2); NEUT % 69.2 % (42.8-82.8); PLATELET COUNT 159 10^3/uL (134-434); RBC 3.42 M/mm3 (3.60-5.2); RDW 16.4 % (11.6-15.6); WHITE BLOOD COUNT 10.5 K/mm3 (4.0-10.0)
[2022-05-28 08:31] LABS: CALCIUM 7.6 mg/dL (8.5-10.1)
[2022-05-28 08:32] LABS: ALBUMIN 2.5 g/dl (3.4-5.0); BLOOD UREA NITROGEN 83.2 mg/dL (7-18)
[2022-05-28 08:35] LABS: CREATININE 4.3 mg/dL (0.55-1.3)
[2022-05-28 08:36] LABS: BILIRUBIN,TOTAL 0.6 mg/dL (0.2-1); TOT PROT 6.8 g/dl (6.4-8.2)
[2022-05-28] MEDS: amLODIPine BESYLATE 5 MG TABLET (FP) NGT SCH (09:42)
[2022-05-28] MEDS: ENOXAPARIN NA (PORCINE) 30 MG/0.3 ML DISP.SYRIN SQ SCH (09:42)
[2022-05-28] MEDS: SERTRALINE HCL 50 MG TABLET (FP) NGT SCH (09:42)
[2022-05-28] MEDS: PANTOPRAZOLE SODIUM 40 MG VIAL IVPUSH SCH (09:42)
[2022-05-28] MEDS: diazePAM 5 MG TABLET NGT SCH ×2 (09:42→21:12)
[2022-05-28] MEDS: LACTATED RINGERS SOLUTION 1,000 ML/1,000 ML INFUS.BAG IV SCH (13:07)
[2022-05-28] MEDS ORDERED: PIPERACILLIN/TAZOBACTAM 2.25 GM VIAL IVPB ONE (16:07)
[2022-05-29] MEDS: PIPERACILLIN/TAZOB 2.25 GM 2.25 GM in DEXTROSE 5%-WATER - 50 ML IVPB SCH ×2 (03:42→09:20)
[2022-05-29] MEDS: LEVOTHYROXINE NA 25 MCG TABLET (FP) NGT SCH (06:36)
[2022-05-29 07:17] LABS: HEMATOCRIT 26.8 % (32.4-45.2); MCH 27.8 pg (25.7-33.7); MCHC 33.7 g/dl (32.0-36.0); MEAN CELL VOLUME 82.6 fl (80-96); PLATELET COUNT 160 10^3/uL (134-434); RBC 3.25 M/mm3 (3.60-5.2); RDW 15.6 % (11.6-15.6); WHITE BLOOD COUNT 8.9 K/mm3 (4.0-10.0)
[2022-05-29 07:35] LABS: ALBUMIN 2.2 g/dl (3.4-5.0); BLOOD UREA NITROGEN 63.3 mg/dL (7-18); CALCIUM 7.8 mg/dL (8.5-10.1)
[2022-05-29 07:38] LABS: CREATININE 3.1 mg/dL (0.55-1.3)
[2022-05-29 07:40] LABS: BILIRUBIN,TOTAL 0.3 mg/dL (0.2-1); TOT PROT 6.2 g/dl (6.4-8.2)
[2022-05-29] MEDS ORDERED: ACETAMINOPHEN 500 MG TABLET (FP) PO PRN ×2 (09:20→13:57)
[2022-05-29] MEDS: ENOXAPARIN NA (PORCINE) 30 MG/0.3 ML DISP.SYRIN SQ SCH (09:20)
[2022-05-29] MEDS: PANTOPRAZOLE SODIUM 40 MG VIAL IVPUSH SCH (09:20)
[2022-05-29] MEDS: diazePAM 5 MG TABLET NGT SCH ×2 (09:20→21:41)
[2022-05-29] MEDS: amLODIPine BESYLATE 5 MG TABLET (FP) NGT SCH (09:20)
[2022-05-29] MEDS: SERTRALINE HCL 50 MG TABLET (FP) NGT SCH (09:20)
[2022-05-29] MEDS ORDERED: ACETAMINOPHEN 500 MG TABLET (FP) NGT PRN (09:26)
[2022-05-29 10:20] LABS: ANISOCYTOSIS 0; MACROCYTOSIS 0
[2022-05-29] MEDS: LACTATED RINGERS SOLUTION 1,000 ML/1,000 ML INFUS.BAG IV SCH (15:00)
[2022-05-30] MEDS: LEVOTHYROXINE NA 25 MCG TABLET (FP) NGT SCH (07:02)
[2022-05-30 08:41] LABS: BASO % 0.2 % (0-2.0); EOS % 1.4 % (0-4.5); HEMATOCRIT 25.3 % (32.4-45.2); HEMOGLOBIN 8.5 GM/dL (10.7-15.3); LYMPH % 24.5 % (8-40); MCH 27.8 pg (25.7-33.7); MCHC 33.4 g/dl (32.0-36.0); MEAN CELL VOLUME 83.2 fl (80-96); MEAN PLT VOLUME 7.8 fl (7.5-11.1); MONO % 13.4 % (3.8-10.2); NEUT % 60.5 % (42.8-82.8); PLATELET COUNT 159 10^3/uL (134-434); RBC 3.04 M/mm3 (3.60-5.2); RDW 15.6 % (11.6-15.6); WHITE BLOOD COUNT 8.2 K/mm3 (4.0-10.0)
[2022-05-30] MEDS: ENOXAPARIN NA (PORCINE) 30 MG/0.3 ML DISP.SYRIN SQ SCH (10:03)
[2022-05-30] MEDS: SERTRALINE HCL 50 MG TABLET (FP) NGT SCH (10:03)
[2022-05-30] MEDS: PANTOPRAZOLE SODIUM 40 MG VIAL IVPUSH SCH (10:03)
[2022-05-30] MEDS: amLODIPine BESYLATE 5 MG TABLET (FP) NGT SCH (10:03)
[2022-05-30] MEDS: diazePAM 5 MG TABLET NGT SCH (10:03)
[2022-05-30] MEDS ORDERED: FAMOTIDINE 20 MG TABLET PO PRN (15:29)
[2022-05-30] MEDS: LACTATED RINGERS SOLUTION 1,000 ML/1,000 ML INFUS.BAG IV SCH ×2 (16:35→18:34)
[2022-05-30] MEDS ORDERED: ONDANSETRON 4 MG/2 ML VIAL IVPUSH PRN (17:26)
[2022-05-30] MEDS ORDERED: ACETAMINOPHEN 500 MG TABLET (FP) NGT PRN (17:26)
[2022-05-30] MEDS ORDERED: IPRATROPIUM BR 0.02% 0.5 MG/2.5 ML VIAL.NEB. NEB PRN (17:26)
[2022-05-30] MEDS ORDERED: PHENOL 177 ML SPRAY BOTTLE MM PRN (17:26)
[2022-05-30] MEDS ORDERED: diazePAM 5 MG TABLET NGT SCH (22:00)
[2022-05-31] MEDS: LACTATED RINGERS SOLUTION 1,000 ML/1,000 ML INFUS.BAG IV SCH (06:25)
[2022-05-31] MEDS ORDERED: LEVOTHYROXINE NA 25 MCG TABLET (FP) NGT SCH (07:00)
[2022-05-31 09:09] LABS: CALCIUM 8.6 mg/dL (8.5-10.1)
[2022-05-31 09:10] LABS: ALBUMIN 2.5 g/dl (3.4-5.0)
[2022-05-31] MEDS: diazePAM 5 MG TABLET PO SCH ×2 (09:11→22:19)
[2022-05-31] MEDS: SERTRALINE HCL 50 MG TABLET (FP) PO SCH (09:11)
[2022-05-31] MEDS: amLODIPine BESYLATE 5 MG TABLET (FP) PO SCH (09:11)
[2022-05-31] MEDS: ENOXAPARIN NA (PORCINE) 30 MG/0.3 ML DISP.SYRIN SQ SCH (09:11)
[2022-05-31 09:13] LABS: CREATININE 2.2 mg/dL (0.55-1.3)
[2022-05-31 09:14] LABS: BILIRUBIN,TOTAL 0.4 mg/dL (0.2-1); TOT PROT 6.6 g/dl (6.4-8.2)
[2022-05-31 09:16] LABS: BLOOD UREA NITROGEN 31.6 mg/dL (7-18)
[2022-05-31] MEDS ORDERED: PANTOPRAZOLE SODIUM 40 MG VIAL IVPUSH SCH (10:00)
[2022-05-31] MEDS ORDERED: LACTATED RINGERS SOLUTION 1,000 ML/1,000 ML INFUS.BAG IV SCH (13:21)
[2022-05-31] MEDS: ACETAMINOPHEN 500 MG TABLET (FP) PO PRN (22:23)
[2022-06-01] MEDS: LEVOTHYROXINE NA 25 MCG TABLET (FP) PO SCH (06:30)
[2022-06-01] MEDS: PANTOPRAZOLE 40 MG TABLET PO SCH (09:32)
[2022-06-01] MEDS: SERTRALINE HCL 50 MG TABLET (FP) PO SCH (09:32)
[2022-06-01] MEDS: ENOXAPARIN NA (PORCINE) 30 MG/0.3 ML DISP.SYRIN SQ SCH (09:32)
[2022-06-01] MEDS: amLODIPine BESYLATE 5 MG TABLET (FP) PO SCH (09:32)
[2022-06-01] MEDS: diazePAM 5 MG TABLET PO SCH ×2 (09:32→21:33)
[2022-06-01] MEDS: LIDOCAINE 5% TOPICAL PATCH TP SCH (09:32)
[2022-06-01] MEDS: ACETAMINOPHEN 500 MG TABLET (FP) PO PRN (09:33)
[2022-06-01 09:45] LABS: ALBUMIN 2.4 g/dl (3.4-5.0)
[2022-06-01 09:47] LABS: CALCIUM 8.4 mg/dL (8.5-10.1)
[2022-06-01 09:48] LABS: BLOOD UREA NITROGEN 23.2 mg/dL (7-18)
[2022-06-01 09:52] LABS: TOT PROT 6.2 g/dl (6.4-8.2)
[2022-06-01 09:59] LABS: BILIRUBIN,TOTAL 0.3 mg/dL (0.2-1)
[2022-06-01] MEDS: SODIUM CHLORIDE 0.45% 1,000 ML IV SCH (15:58)
[2022-06-01] MEDS: LIDOCAINE PATCH REMOVAL MC SCH (21:34)
[2022-06-02] MEDS: LEVOTHYROXINE NA 25 MCG TABLET (FP) PO SCH (06:07)
[2022-06-02 09:33] LABS: CALCIUM 8.3 mg/dL (8.5-10.1)
[2022-06-02 09:34] LABS: ALBUMIN 2.6 g/dl (3.4-5.0); BLOOD UREA NITROGEN 18.4 mg/dL (7-18)
[2022-06-02 09:38] LABS: BILIRUBIN,TOTAL 0.4 mg/dL (0.2-1); TOT PROT 6.7 g/dl (6.4-8.2)
[2022-06-02] MEDS: ENOXAPARIN NA (PORCINE) 30 MG/0.3 ML DISP.SYRIN SQ SCH (09:55)
[2022-06-02] MEDS: amLODIPine BESYLATE 5 MG TABLET (FP) PO SCH (09:55)
[2022-06-02] MEDS: SERTRALINE HCL 50 MG TABLET (FP) PO SCH (09:55)
[2022-06-02] MEDS: PANTOPRAZOLE 40 MG TABLET PO SCH (09:55)
[2022-06-02] MEDS: diazePAM 5 MG TABLET PO SCH ×2 (09:55→21:09)
[2022-06-02] MEDS: LIDOCAINE 5% TOPICAL PATCH TP SCH (11:07)
[2022-06-02] MEDS: SODIUM CHLORIDE 0.45% 1,000 ML IV SCH (13:11)
[2022-06-02] MEDS: ACETAMINOPHEN 500 MG TABLET (FP) PO PRN (13:17)
[2022-06-02] MEDS: LIDOCAINE PATCH REMOVAL MC SCH (21:09)
[2022-06-03] MEDS: LEVOTHYROXINE NA 25 MCG TABLET (FP) PO SCH (06:14)
[2022-06-03] MEDS: ENOXAPARIN NA (PORCINE) 30 MG/0.3 ML DISP.SYRIN SQ SCH (09:54)
[2022-06-03] MEDS: amLODIPine BESYLATE 5 MG TABLET (FP) PO SCH (09:54)
[2022-06-03] MEDS: diazePAM 5 MG TABLET PO SCH (09:54)
[2022-06-03] MEDS: SERTRALINE HCL 50 MG TABLET (FP) PO SCH (09:54)
[2022-06-03] MEDS: PANTOPRAZOLE 40 MG TABLET PO SCH (09:54)
[2022-06-03] MEDS: LIDOCAINE 5% TOPICAL PATCH TP SCH (09:54)
[2022-06-03 11:01] VITALS: BP 122/67; PULSE 90; RESP 20; TEMP 98.6
== END 2022-06-03 12:30 | disposition home health service (06) | DRG 872 ==
LOC: JER 11:02 → JERBED 16:33 → J4W 05-25 03:34 → J6S 05-30 17:07
PROVIDERS: ADMIT Internal Medicine; ATTEND Internal Medicine
PROC: 30233N1 Transfusion of Nonautologous Red Blood Cells into Peripheral Vein, Percutaneous Approach (ICD-10-PCS; principal; 2022-05-27)
DX: A41.9 Sepsis, unspecified organism (principal); K56.609 Unspecified intestinal obstruction, unspecified as to partial versus complete obstruction; N17.9 Acute kidney failure, unspecified; E87.20 Acidosis, unspecified; E87.5 Hyperkalemia; D64.9 Anemia, unspecified; E78.5 Hyperlipidemia, unspecified; E03.9 Hypothyroidism, unspecified; I10 Essential (primary) hypertension; I25.10 Atherosclerotic heart disease of native coronary artery without angina pectoris; Z95.1 Presence of aortocoronary bypass graft; F41.8 Other specified anxiety disorders; K21.9 Gastro-esophageal reflux disease without esophagitis; E86.0 Dehydration
CPT/HCPCS: 0241U-QW; 36415; 36430; 71045-TC-FY; 74018-TC-FY; 74019-TC-FY; 74021-TC-FY; 74174-TC; 80048; 80053; 82150; 82803; 83605; 83690; 84484; 85025; 85027; 85610; 85730; 86850; 86900; 86901; 86922; 93005; 93010; 93306-TC; 97116-GP; 99291; P9038; P9058

== ENCOUNTER 2023-03-11 12:17 | Observation (INO) | payer OTHER ==
[2023-03-11 14:47] LABS: BASO % 0.8 % (0-2.0); EOS % 0.9 % (0-4.5); HEMATOCRIT 19.8 % (32.4-45.2); LYMPH % 19.7 % (8-40); MCH 22.1 pg (25.7-33.7); MCHC 28.6 g/dl (32.0-36.0); MEAN CELL VOLUME 77.3 fl (80-96); MEAN PLT VOLUME 7.9 fl (7.5-11.1); MONO % 10.4 % (3.8-10.2); NEUT % 68.2 % (42.8-82.8); PLATELET COUNT 260 10^3/uL (134-434); RBC 2.56 M/mm3 (3.60-5.2); RDW 20.1 % (11.6-15.6)
[2023-03-11 14:52] LABS: HEMOGLOBIN 5.7 GM/dL (10.7-15.3)
[2023-03-11 14:58] LABS: INR 1.17 (0.83-1.09); PROTHROMBIN TIME (PATIENT) 13.6 SEC (9.7-13.0)
[2023-03-11 15:00] LABS: ACTIVATED PTT 24.1 SECONDS (25.2-36.5)
[2023-03-11 15:13] LABS: POTASSIUM 5.8 mmol/L (3.5-5.1)
[2023-03-11 15:16] LABS: CALCIUM 8.3 mg/dL (8.5-10.1)
[2023-03-11 15:17] LABS: ALBUMIN 2.8 g/dl (3.4-5.0)
[2023-03-11 15:20] LABS: CREATININE 1.9 mg/dL (0.55-1.3)
[2023-03-11 15:21] LABS: BILIRUBIN,TOTAL 0.2 mg/dL (0.2-1); TOT PROT 7.3 g/dl (6.4-8.2)
[2023-03-11 15:31] LABS: BLOOD UREA NITROGEN 33.7 mg/dL (7-18)
[2023-03-11] MEDS ORDERED: SODIUM ZIRCONIUM CYCLOSILICATE (LOKELMA) 5 GM PACKET PO SCH (17:45)
[2023-03-11] MEDS ORDERED: PANTOPRAZOLE SODIUM 80 MG/200 ML BAG IVPB ONE (18:03)
[2023-03-11] MEDS: PANTOPRAZOLE 40 MG TABLET PO SCH (18:34)
[2023-03-11] MEDS ORDERED: SODIUM ZIRCONIUM CYCLOSILICATE (LOKELMA) 10 GM PACKET ONE (18:35)
[2023-03-12 04:18] VITALS: BMI 33.3
[2023-03-12] MEDS: LEVOTHYROXINE NA 25 MCG TABLET (FP) PO SCH (06:37)
[2023-03-12] MEDS: SERTRALINE HCL 50 MG TABLET (FP) PO SCH (09:24)
[2023-03-12] MEDS: metoPROLOL SUCCINATE 25 MG TAB.SR.24H (FP) PO SCH (09:24)
[2023-03-12] MEDS: amLODIPine BESYLATE 5 MG TABLET (FP) PO SCH (09:24)
[2023-03-12] MEDS: PANTOPRAZOLE 40 MG TABLET PO SCH (09:24)
[2023-03-12] MEDS: LISINOPRIL 5 MG TABLET PO SCH (09:24)
[2023-03-12 11:13] LABS: BASO % 0.4 % (0-2.0); EOS % 1.3 % (0-4.5); HEMATOCRIT 24.5 % (32.4-45.2); HEMOGLOBIN 7.5 GM/dL (10.7-15.3); LYMPH % 15.1 % (8-40); MCH 23.7 pg (25.7-33.7); MCHC 30.7 g/dl (32.0-36.0); MEAN CELL VOLUME 77.1 fl (80-96); MEAN PLT VOLUME 7.8 fl (7.5-11.1); MONO % 7.8 % (3.8-10.2); NEUT % 75.4 % (42.8-82.8); PLATELET COUNT 189 10^3/uL (134-434); RBC 3.17 M/mm3 (3.60-5.2); RDW 18.4 % (11.6-15.6); WHITE BLOOD COUNT 7.8 K/mm3 (4.0-10.0)
[2023-03-12 11:21] LABS: POTASSIUM 5.1 mmol/L (3.5-5.1)
[2023-03-12 11:37] LABS: ALBUMIN 2.9 g/dl (3.4-5.0); CALCIUM 7.6 mg/dL (8.5-10.1)
[2023-03-12 11:38] LABS: BLOOD UREA NITROGEN 28.4 mg/dL (7-18)
[2023-03-12 11:40] LABS: CREATININE 1.7 mg/dL (0.55-1.3)
[2023-03-12 11:42] LABS: BILIRUBIN,TOTAL 0.3 mg/dL (0.2-1); TOT PROT 7.2 g/dl (6.4-8.2)
[2023-03-12] MEDS ORDERED: SODIUM ZIRCONIUM CYCLOSILICATE (LOKELMA) 5 GM PACKET PO SCH (12:15)
[2023-03-12] MEDS: RIFAXIMIN 550 MG TABLET PO SCH ×2 (14:35→21:21)
[2023-03-12] MEDS: LIPASE/PROTEASE/AMYLASE 36,000 UNIT CAPSULE PO SCH ×3 (14:36→17:31)
[2023-03-12] MEDS ORDERED: diazePAM 5 MG TABLET PO ONE (16:00)
[2023-03-12] MEDS ORDERED: ZOLPIDEM TARTRATE 5 MG TABLET PO ONE ×2 (20:35→21:00)
[2023-03-13] MEDS: LEVOTHYROXINE NA 25 MCG TABLET (FP) PO SCH (06:05)
[2023-03-13] MEDS: RIFAXIMIN 550 MG TABLET PO SCH (06:05)
[2023-03-13 07:00] VITALS: BP 143/7; PULSE 72; RESP 18; TEMP 98.7
[2023-03-13] MEDS: SERTRALINE HCL 50 MG TABLET (FP) PO SCH (09:04)
[2023-03-13] MEDS: amLODIPine BESYLATE 5 MG TABLET (FP) PO SCH (09:04)
[2023-03-13] MEDS: LISINOPRIL 5 MG TABLET PO SCH (09:04)
[2023-03-13] MEDS: PANTOPRAZOLE 40 MG TABLET PO SCH (09:04)
[2023-03-13] MEDS: metoPROLOL SUCCINATE 25 MG TAB.SR.24H (FP) PO SCH (09:04)
[2023-03-13] MEDS: LIPASE/PROTEASE/AMYLASE 36,000 UNIT CAPSULE PO SCH ×2 (09:11→12:04)
== END 2023-03-13 12:17 | disposition home or self-care (01) ==
LOC: JER 12:17 → JERBED 15:05 → INTOOBSV 15:05 → UNDOADMOB 15:05 → JERBED 03-12 03:28 → J8W 03-12 03:28 → JERBED 03-12 12:16
PROVIDERS: ADMIT Internal Medicine; ATTEND Internal Medicine
PROC: 30233N1 Transfusion of Nonautologous Red Blood Cells into Peripheral Vein, Percutaneous Approach (ICD-10-PCS; principal; 2023-03-12)
PROC: 0DJ08ZZ Inspection of Upper Intestinal Tract, Via Natural or Artificial Opening Endoscopic (ICD-10-PCS; 2023-03-12)
DX: D50.9 Iron deficiency anemia, unspecified (principal); I13.10 Hypertensive heart and chronic kidney disease without heart failure, with stage 1 through stage 4 chronic kidney disease, or unspecified chronic kidney disease; N18.9 Chronic kidney disease, unspecified; R14.1 Gas pain; I25.10 Atherosclerotic heart disease of native coronary artery without angina pectoris; K57.92 Diverticulitis of intestine, part unspecified, without perforation or abscess without bleeding; E87.20 Acidosis, unspecified; I11.0 Hypertensive heart disease with heart failure; E78.5 Hyperlipidemia, unspecified; E27.9 Disorder of adrenal gland, unspecified; Z53.20 Procedure and treatment not carried out because of patient's decision for unspecified reasons; E03.9 Hypothyroidism, unspecified; K21.9 Gastro-esophageal reflux disease without esophagitis; F41.8 Other specified anxiety disorders; K82.8 Other specified diseases of gallbladder; Z95.1 Presence of aortocoronary bypass graft; Z93.3 Colostomy status; N17.9 Acute kidney failure, unspecified; Z87.891 Personal history of nicotine dependence; Z99.89 Dependence on other enabling machines and devices; R01.1 Cardiac murmur, unspecified; E87.5 Hyperkalemia; Z79.82 Long term (current) use of aspirin; Z91.013 Allergy to seafood
CPT/HCPCS: 36415; 36430; 71045-TC-FY; 80053; 82272; 82728; 83540; 83550; 84132; 85025; 85027; 85610; 85730; 86850; 86900; 86901; 86922; 93005; 93010; 99285-25; G0378; P9038; P9058

== ENCOUNTER 2024-02-02 11:07 | Inpatient (IN) | payer OTHER ==
[2024-02-02] MEDS: SODIUM CHLORIDE 1,000 ML IV SCH (12:14)
[2024-02-02 12:16] LABS: BASO % 0.4 % (0-2.0); EOS % 0.7 % (0-4.5); HEMATOCRIT 25.3 % (32.4-45.2); HEMOGLOBIN 8.1 GM/dL (10.7-15.3); LYMPH % 18.3 % (8-40); MCH 29.4 pg (25.7-33.7); MCHC 31.9 g/dl (32.0-36.0); MEAN CELL VOLUME 92.3 fl (80-96); MEAN PLT VOLUME 7.5 fl (7.5-11.1); MONO % 7.1 % (3.8-10.2); NEUT % 73.5 % (42.8-82.8); PLATELET COUNT 114 10^3/uL (134-434); RBC 2.74 M/mm3 (3.60-5.2); RDW 14.5 % (11.6-15.6); WHITE BLOOD COUNT 5.2 K/mm3 (4.0-10.0)
[2024-02-02 12:26] LABS: INR 1.2 (0.83-1.09); PROTHROMBIN TIME (PATIENT) 13.5 SEC (9.7-13.0)
[2024-02-02 12:29] LABS: ACTIVATED PTT 31.7 SECONDS (25.2-36.5)
[2024-02-02 12:40] LABS: POTASSIUM 5.1 mmol/L (3.5-5.1)
[2024-02-02 12:42] LABS: BLOOD UREA NITROGEN 25.1 mg/dL (7-18); CALCIUM 8.2 mg/dL (8.5-10.1)
[2024-02-02 12:46] LABS: CREATININE 1.6 mg/dL (0.55-1.3)
[2024-02-02 12:47] LABS: TOT PROT 6.9 g/dl (6.4-8.2)
[2024-02-02 12:48] LABS: BILIRUBIN,TOTAL 0.3 mg/dL (0.2-1)
[2024-02-02 16:45] VITALS: BMI 30.2
[2024-02-02] MEDS: ASPIRIN COATED 81 MG TABLET.EC PO SCH (17:11)
[2024-02-02 18:32] LABS: N-TERMINAL BNP 813.3 pg/ml (5-450)
[2024-02-02] MEDS: ATORVASTATIN CA 40 MG TABLET (FP) PO SCH (21:12)
[2024-02-02] MEDS: MELATONIN 5 MG TABLETS PO ONE (21:12)
[2024-02-03] MEDS: LEVOTHYROXINE NA 25 MCG TABLET (FP) PO SCH (06:11)
[2024-02-03] MEDS: diazePAM 5 MG TABLET PO PRN (06:17)
[2024-02-03 07:47] LABS: BASO % 0.2 % (0-2.0); EOS % 1.5 % (0-4.5); HEMATOCRIT 26.9 % (32.4-45.2); HEMOGLOBIN 8.6 GM/dL (10.7-15.3); LYMPH % 32.4 % (8-40); MCH 29.4 pg (25.7-33.7); MCHC 31.9 g/dl (32.0-36.0); MEAN CELL VOLUME 92.2 fl (80-96); MEAN PLT VOLUME 7.8 fl (7.5-11.1); MONO % 8.3 % (3.8-10.2); NEUT % 57.6 % (42.8-82.8); PLATELET COUNT 118 10^3/uL (134-434); RBC 2.91 M/mm3 (3.60-5.2); RDW 14.6 % (11.6-15.6); WHITE BLOOD COUNT 6.6 K/mm3 (4.0-10.0)
[2024-02-03 07:57] LABS: POTASSIUM 4.6 mmol/L (3.5-5.1)
[2024-02-03 08:09] LABS: CALCIUM 8.5 mg/dL (8.5-10.1)
[2024-02-03 08:10] LABS: ALBUMIN 3.2 g/dl (3.4-5.0)
[2024-02-03 08:13] LABS: CREATININE 1.5 mg/dL (0.55-1.3)
[2024-02-03 08:14] LABS: BILIRUBIN,TOTAL 0.3 mg/dL (0.2-1); TOT PROT 7.1 g/dl (6.4-8.2)
[2024-02-03] MEDS: PANTOPRAZOLE 40 MG TABLET PO SCH (10:09)
[2024-02-03] MEDS: ENOXAPARIN NA (PORCINE) 40 MG/0.4 ML DISP.SYRIN SQ SCH (10:09)
[2024-02-03] MEDS: metoPROLOL SUCCINATE 25 MG TAB.SR.24H (FP) PO SCH (10:09)
[2024-02-03] MEDS: LISINOPRIL 5 MG TABLET PO SCH (10:09)
[2024-02-03] MEDS: SERTRALINE HCL 50 MG TABLET (FP) PO SCH (10:10)
[2024-02-03] MEDS: amLODIPine BESYLATE 5 MG TABLET (FP) PO SCH (10:10)
[2024-02-03] MEDS: FUROSEMIDE 40 MG TABLET (FP) PO SCH (10:10)
[2024-02-03] MEDS: FERROUS SO4 325 MG TABLET (FP) PO SCH (10:10)
[2024-02-03 18:12] LABS: EPI CELLS 18 /uL (0-25.1); HYALINE CASTS 3 /uL (0-3.1); URINE APPEARANCE CLEAR; URINE BACTERIA 90 /uL (0-1359); URINE BILIRUBIN NEGATIVE (NEGATIVE); URINE COLOR YELLOW; URINE GLUCOSE (UA) NEGATIVE (NEGATIVE); URINE KETONE NEGATIVE (NEGATIVE); URINE LEUK ESTERASE 1+ (NEGATIVE); URINE NITRITE NEGATIVE (NEGATIVE); URINE PROTEIN NEGATIVE (NEGATIVE); URINE RBC 31 /uL (0-23.9); URINE UROBILINOGEN 0.2 mg/dL (0.2-1.0); URINE WBC 40 /uL (0-25.8)
[2024-02-03] MEDS: ARTIFICIAL TEARS OPHTHALMIC DROPS OU PRN (21:22)
[2024-02-05] MEDS: ZOLPIDEM TARTRATE 5 MG TABLET PO ONE (00:11)
[2024-02-05 15:57] VITALS: BP 138/61; PULSE 63; RESP 18; TEMP 98
== END 2024-02-05 16:50 | disposition home health service (06) | DRG 66 ==
LOC: JER 11:07 → JERBED 13:00 → OBSVTOIN 15:14 → J4W 15:20
PROVIDERS: ADMIT Internal Medicine; ATTEND Internal Medicine
DX: I63.89 Other cerebral infarction (principal); I25.10 Atherosclerotic heart disease of native coronary artery without angina pectoris; I10 Essential (primary) hypertension; E78.5 Hyperlipidemia, unspecified; E03.9 Hypothyroidism, unspecified; D50.9 Iron deficiency anemia, unspecified; I11.0 Hypertensive heart disease with heart failure; I50.9 Heart failure, unspecified; R29.810 Facial weakness; K21.9 Gastro-esophageal reflux disease without esophagitis; G47.00 Insomnia, unspecified; E86.0 Dehydration; R41.82 Altered mental status, unspecified; F41.8 Other specified anxiety disorders; M54.50 Low back pain, unspecified; Z85.038 Personal history of other malignant neoplasm of large intestine; Z95.1 Presence of aortocoronary bypass graft
CPT/HCPCS: 36415; 70450-TC; 70496-TC; 70498-TC; 80053; 80061; 81003; 82550; 82962; 83036; 83880; 84443; 84484; 85025; 85610; 85730; 86850; 86900; 86901; 93005; 93010; 93306-TC; 93880-TC; 97116-GP; 97162-GP; 99285-25; G0378; Q9967